=== PATIENT | male | born 1940 | race Caucasian/White ===

== ENCOUNTER 2017-01-01 16:37 | Emergency (ER) | payer OTHER ==
[2017-01-01 17:35] LABS: Basophils # (A) 0.1 k/uL (0-0.2); Basophils % (A) 1 %; CH 30.9; CHCM 34.6; Eosinophils # (A) 0.3 k/uL (0-0.7); Eosinophils % (A) 5 %; HCT 41.9 % (39.0-53.0); HDW 3.02; HGB 14.3 gm/dL (13.0-17.5); Luc # (Auto) 0.16; Luc % (Auto) 2; Lymphocytes # (A) 1.8 k/uL (1.0-4.8); Lymphocytes % (A) 25 %; MCH 30.8 pg (25.0-35.0); MCHC 34.2 g/dL (31.0-37.0); Mean Platelet Volume 7.1; Monocytes # (A) 0.4 k/uL (0-1.0); Monocytes % (A) 6 %; Neutrophils # (A) 4.5 k/uL (1.3-7.7); Neutrophils % (A) 62 %; RBC 4.66 m/uL (4.30-5.90); RDW 14.4 % (11.5-15.5); WBC 7.2 k/uL (3.8-10.6); WBC (Perox) 7.15
[2017-01-01 17:40] LABS: ALT 43 U/L (21-72); AST 35 U/L (17-59); Acetaminophen <10.0 ug/mL; Alkaline Phosphatase 58 U/L (38-126); Anion Gap 15 mmol/L; Blood Urea Nitrogen 20 mg/dL (9-20); Calcium 9.8 mg/dL (8.4-10.2); Carbon Dioxide 20 mmol/L (22-30); Chloride 109 mmol/L (98-107); Glucose 100 mg/dL (74-99); Non-African American GFR(MDRD) >60 (>60 ml/min/1.73 sqM); Potassium 4.5 mmol/L (3.5-5.1); Salicylate <1.0 mg/dL; Sodium 144 mmol/L (137-145); Total Bilirubin 0.5 mg/dL (0.2-1.3); Total Protein 7.2 g/dL (6.3-8.2)
[2017-01-01 20:39] VITALS: RESP 16
--- NOTE | 2017-01-01 21:06 | ED ---
Psych HPI - General Chief Complaint: Psychiatric Symptoms Stated Complaint: Mental Health Time Seen by Provider: 01/01/17 16:52 Source: patient Mode of arrival: EMS - History of Present Illness Initial Comments: This 76-year-old white male presents that he states that he has been feeling strange recently. Initially started approximately 2 months ago. He states that he felt somewhat indecisive and that he was hearing some voices. He seemed to be arguing with them self and these voices at times are telling him to hurt himself. He states that they also told him that he is worthless and this caused him a degree of depression. He denies any actual suicidal ideations. He denies any drug or alcohol use. He relates that he is diagnosed with schizophrenia at age 21 and he has had occasional similar flares but none for the last 10 years. He has not been in any psychiatric medications for the last 10 years. He seems to have quite good insight into his disease process. He denies any other complaints or modifying factors. - Related Data Home Medications Medication Instructions Recorded Confirmed Aspirin EC [Ecotrin Low Dose] 81 mg PO DAILY 01/01/17 01/01/17 Atorvastatin [Lipitor] 80 mg PO HS 01/01/17 01/01/17 Folic Acid 1 mg PO DAILY 01/01/17 01/01/17 Metoprolol Tartrate [Lopressor] 25 mg PO BID 01/01/17 01/01/17 metFORMIN HCL 1,000 mg PO BID 01/01/17 01/01/17 Allergies Allergy/AdvReac Type Severity Reaction Status Date / Time No Known Allergies Allergy Verified 01/01/17 17:34 Review of Systems ROS Statement: Those systems with pertinent positive or pertinent negative responses have been documented in the HPI. ROS Other: All systems not noted in ROS Statement are negative. Past Medical History Past Medical History: Diabetes Mellitus, Osteoarthritis (OA) History of Any Multi-Drug Resistant Organisms: None Reported Past Surgical History: Heart Catheterization With Stent Past Psychological History: Anxiety, Depression, Schizophrenia Smoking Status: Current every day smoker Past Alcohol Use History: None Reported Past Drug Use History: None Reported General Exam - General Exam Comments Initial Comments: GENERAL: The patient is well nourished and well hydrated. VITAL SIGNS: Heart rate, blood pressure, respiratory rate reviewed as recorded in nurse's notes. EYES: Pupils are round and reactive. Extraocular movements are intact. No conjunctival / lid redness or swelling. ENT: No external evidence of injury, swelling, or ecchymosis. Airway is patent. Throat is clear. NECK: Nontender. No swelling or evidence of injury. No subcutaneous emphysema. Trachea is midline. No thyroid mass. HEART: Regular rate and rhythm. Good peripheral pulses. LUNGS/CHEST: Breath sounds clear and equal bilaterally. No rales, rhonchi, or wheezes. No ecchymosis, subcutaneous emphysema, or tenderness. ABDOMEN: Abdomen soft without tenderness. No palpable masses or organomegaly. No peritoneal signs. No abdominal wall swelling or ecchymosis. EXTREMITIES: No extremity tenderness. Normal muscle tone and function. No thoracolumbar tenderness. NEUROLOGIC: Sensation is grossly intact. Cranial nerve exam reveals face is symmetrical, tongue is midline, speech is clear. SKIN: No abrasions or ecchymosis is noted. No induration or masses noted. PSYCHIATRIC: Alert and oriented. Appropriate behavior and judgment. No overt anxiety depression or psychosis identified. Limitations: no limitations Course Vital Signs 01/01/17 01/01/17 01/01/17 16:39 19:16 20:00 Temperature 97.1 F L Pulse Rate 67 Respiratory 16 18 16 Rate Blood Pressure 143/77 O2 Sat by Pulse 94 L Oximetry Medical Decision Making - Medical Decision Making The patient was seen and examined. All diagnostics were reviewed. The laboratory did not show any acute significant abnormalities. A consult was placed for psychiatric nurse to evaluate the patient. They feel as though he is stable for discharge. He does not have any suicidal ideations. The son is present and is agreeable to take him to the [facility] for further psychiatric evaluation and treatment tomorrow. The family is quite agreeable to this plan and patient is subsequently discharged. Return parameters are discussed. - Lab Data Result diagrams: 01/01/17 16:41 01/01/17 16:41 Lab Results 01/01/17 01/01/17 01/01/17 Range/Units 16:41 16:41 16:41 WBC 7.2 (3.8-10.6) k/uL RBC 4.66 (4.30-5.90) m/uL Hgb 14.3 (13.0-17.5) gm/dL Hct 41.9 (39.0-53.0) % MCV 90.0 (80.0-100.0) fL MCH 30.8 (25.0-35.0) pg MCHC 34.2 (31.0-37.0) g/dL RDW 14.4 (11.5-15.5) % Plt Count 234 (150-450) k/uL Neutrophils % 62 % Lymphocytes % 25 % Monocytes % 6 % Eosinophils % 5 % Basophils % 1 % Neutrophils # 4.5 (1.3-7.7) k/uL Lymphocytes # 1.8 (1.0-4.8) k/uL Monocytes # 0.4 (0-1.0) k/uL Eosinophils # 0.3 (0-0.7) k/uL Basophils # 0.1 (0-0.2) k/uL Sodium 144 (137-145) mmol/L Potassium 4.5 (3.5-5.1) mmol/L Chloride 109 H (98-107) mmol/L Carbon Dioxide 20 L (22-30) mmol/L Anion Gap 15 mmol/L BUN 20 (9-20) mg/dL Creatinine 0.93 (0.66-1.25) mg/dL Est GFR (MDRD) Af Amer >60 (>60 ml/min/1.73 sqM) Est GFR (MDRD) Non-Af >60 (>60 ml/min/1.73 sqM) Glucose 100 H (74-99) mg/dL Calcium 9.8 (8.4-10.2) mg/dL Total Bilirubin 0.5 (0.2-1.3) mg/dL AST 35 (17-59) U/L ALT 43 (21-72) U/L Alkaline Phosphatase 58 (38-126) U/L Ammonia 11 (<30) umol/L Total Protein 7.2 (6.3-8.2) g/dL Albumin 4.5 (3.5-5.0) g/dL Salicylates <1.0 mg/dL Acetaminophen <10.0 ug/mL Disposition Clinical Impression: Auditory hallucination, Depression Disposition: HOME SELF-CARE Condition: Good Instructions: Hallucinations (ED), Depression (ED) Referrals: Vinod Ames DO [Primary Care Provider] - 1-2 days Time of Disposition: 21:06
[2017-01-01 21:34] VITALS: BP 138/82; PULSE 72; TEMP 97.6
== END 2017-01-01 21:25 | disposition home or self-care (01) ==
LOC: EC 16:37
DX: F32.9 Major depressive disorder, single episode, unspecified (principal); F41.9 Anxiety disorder, unspecified; F20.9 Schizophrenia, unspecified; E11.9 Type 2 diabetes mellitus without complications; M19.90 Unspecified osteoarthritis, unspecified site; F17.200 Nicotine dependence, unspecified, uncomplicated; Z79.82 Long term (current) use of aspirin; Z79.84 Long term (current) use of oral hypoglycemic drugs; Z79.899 Other long term (current) drug therapy
CPT/HCPCS: 36415; 80053; 82075; 82140; 83520; 85025; 99284

== ENCOUNTER 2018-03-04 08:12 | Day surgery (SDC) | payer MEDICARE, OTHER ==
[2018-02-28 10:03] VITALS: BMI 27.5
[~2018-03-04 08:12] MED LIST: LACTATED RINGERS 1,000 ML IV SCH; LIDOCAINE 1% 20 ML VIAL (10MG/ML) FOR IV START INTRADERMA PRN
[2018-03-04 08:57] VITALS: RESP 16; TEMP 97.1
[2018-03-04 09:00] LABS: Glucose,Whole Blood 212 mg/dL (75-99)
[2018-03-04] MEDS ORDERED: LIDOCAINE 1% INJ 10MG/ML (20 ML MDV) ONE (09:21)
[2018-03-04] MEDS ORDERED: PROPOFOL 10 MG/ML 20 ML VIAL IV ONE (09:21)
[2018-03-04 09:53] VITALS: BP 121/60; PULSE 60
--- NOTE | 2018-03-04 09:58 | P.PCN ---
Date of Procedure: 03/04/18 Procedure(s) Performed: Procedure: 1. Esophagogastroduodenoscopy and biopsy. 2. Colonoscopy. Preoperative diagnosis: History of GI bleeding. Postoperative diagnosis: 1. Small sliding hiatal hernia with no obvious esophagitis or complicated reflux disease. 2. Mild gastritis and duodenitis. 3. Antral biopsies obtained. 4. Diverticulosis with no evidence of acute diverticulitis, strictures, polyps or cancer. 5. No evidence of bleeding noted during this exam. Preparation: HalfLytely prep. Sedation: Was provided by anesthesia. Brief clinical history: The patient is a 77-year-old male who is scheduled for this evaluation because of history of GI bleeding earlier this year. He has no abdominal complaints, overt bleeding or anemia at this time. Procedure: With the patient on his left lateral decubitus position and after informed consent and adequate sedation, I passed the Olympus-GIF 160 video upper endoscope through the cricopharyngeus down the esophagus. GE junction was around 41-42 cm from the incisors and there was a small sliding hiatal hernia but no obvious esophagitis or complicated reflux disease. The endoscope was then passed into the stomach which was insufflated with air and inspected in detail including the retroflex view in the cardia. There was some mottling and erythema in the antrum but no ulcers or erosions. Pyloric channel did not show any ulcers. Duodenal bulb showed mild erythema and minimal friability but no ulcers or erosions. Post bulbar area and descending duodenum appeared within normal limits. There were no obvious ulcers or bleeding. Biopsies obtained from the antrum then the endoscope was withdrawn and I proceeded with the colonoscopy. Perianal area did not show any fissures or fistulas. There were no masses felt on digital rectal examination. The Olympus CFQ 160L video colonoscope was then inserted in the rectum in the usual fashion and advanced to the cecum. There were multiple diverticular orifices seen scattered along the length of the bowel both on the left and on the right side with no evidence of acute diverticulitis or strictures. The mucosa appeared healthy. No polyps or tumors were seen or any obvious angiodysplasia or active bleeding. I retroflexed the endoscope in the rectum before the endoscope was withdrawn. The patient tolerated the procedure well. Plan: The patient was reassured. Will await biopsy results. Discussed dietary measures. He will follow up with you as planned. Further plans based on his course.
== END 2018-03-04 10:20 | disposition home or self-care (01) ==
LOC: ORWHC2ENDO 08:12
DX: K29.50 Unspecified chronic gastritis without bleeding (principal); K44.9 Diaphragmatic hernia without obstruction or gangrene; K29.80 Duodenitis without bleeding; K57.30 Diverticulosis of large intestine without perforation or abscess without bleeding; Z87.19 Personal history of other diseases of the digestive system; I10 Essential (primary) hypertension; E78.5 Hyperlipidemia, unspecified; E11.9 Type 2 diabetes mellitus without complications; M19.90 Unspecified osteoarthritis, unspecified site; R25.1 Tremor, unspecified; I25.10 Atherosclerotic heart disease of native coronary artery without angina pectoris; Z72.0 Tobacco use; Z95.5 Presence of coronary angioplasty implant and graft; Z79.84 Long term (current) use of oral hypoglycemic drugs; Z79.899 Other long term (current) drug therapy
CPT/HCPCS: 88305; 45378; 43239; J2001; J2704

== ENCOUNTER 2021-05-05 10:22 | Emergency (ER) | payer OTHER, MEDICARE ==
[2021-05-05 10:25] VITALS: RESP 16; TEMP 97.5
[2021-05-05] MEDS ORDERED: LIDOCAINE 5% PATCH TOPICAL STA (10:55)
--- NOTE | 2021-05-05 11:14 | ED ---
Back Pain HPI <Joaquin Christianson - Last Filed: 05/05/21 12:22> - General Source: patient Limitations: no limitations <Lior Keita - Last Filed: 05/05/21 12:36> - General Chief Complaint: Back Pain/Injury Stated Complaint: Back Pain Time Seen by Provider: 05/05/21 10:26 - History of Present Illness Initial Comments: 81-year-old male presents to emergency Department with a chief complaint of back pain. Patient reports symptoms are ongoing since February and does not seem to be improving. The pain is located in the lower lumbar region and radiating along the posterior aspect her right lower extremity to her foot. Patient reports the pain is exacerbated with flexion of the right hip. He does report some obstructive urinary symptoms such as dribbling and incomplete emptying but states that has been ongoing for the past several years. However, there is no urinary or bowel incontinence. He does report diarrhea, intermittently over the last year. Denies any saddle anesthesia. He does report some paresthesias along the right lower extremity. Denies any direct trauma to her back. Denies abdominal pain, chest pain, shortness breath, fevers or chills. (Lior Keita) - Related Data Home Medications Medication Instructions Recorded Confirmed Atorvastatin [Lipitor] 40 mg PO HS 01/01/17 05/29/18 Folic Acid 1 mg PO HS 01/01/17 05/29/18 metFORMIN HCL 1,000 mg PO BID 01/01/17 05/29/18 Magnesium Oxide [Mag-Ox] 250 mg PO HS 02/28/18 05/29/18 risperiDONE [RisperDAL] 0.5 mg PO HS 02/28/18 05/29/18 Aspirin [Adult Low Dose Aspirin EC] 81 mg PO DAILY 05/29/18 Cholecalciferol [Vitamin D3] 400 unit PO QAM 05/29/18 Propranolol HCl 20 mg PO BID 05/29/18 Allergies Allergy/AdvReac Type Severity Reaction Status Date / Time No Known Allergies Allergy Verified 05/29/18 12:01 Review of Systems ROS Other: All systems not noted in ROS Statement are negative. <Joaquin Christianson - Last Filed: 05/05/21 12:22> ROS Other: All systems not noted in ROS Statement are negative. <Lior Keita - Last Filed: 05/05/21 12:36> ROS Statement: Those systems with pertinent positive or pertinent negative responses have been documented in the HPI. Past Medical History Past Medical History: Coronary Artery Disease (CAD), Diabetes Mellitus, GI Bleed, Hyperlipidemia, Osteoarthritis (OA) Additional Past Medical History / Comment(s): ESSENTIAL TREMORS, GI bleed 10/2017, diverticulitis, gallstones, some loss of use of rt arm, herniated disk, spinal stenosis History of Any Multi-Drug Resistant Organisms: None Reported Past Surgical History: Cholecystectomy Additional Past Surgical History / Comment(s): 3 cardiac stents, surgery on rt arm x 3 -fx as child, left eyelid surgery Past Anesthesia/Blood Transfusion Reactions: No Reported Reaction Date of Last Stent Placement:: 1999 Past Psychological History: Anxiety, Depression, Schizophrenia Smoking Status: Current every day smoker Past Alcohol Use History: None Reported Past Drug Use History: None Reported - Past Family History Mother Family Medical History: No Reported History <Lior Keita - Last Filed: 05/05/21 12:36> General Exam Limitations: no limitations General appearance: alert, in no apparent distress Head exam: Present: atraumatic, normocephalic, normal inspection Eye exam: Present: normal appearance, PERRL, EOMI Pupils: Present: normal accommodation ENT exam: Present: normal exam, normal oropharynx, mucous membranes moist Neck exam: Present: normal inspection, full ROM. Absent: tenderness, lymphadenopathy Respiratory exam: Present: normal lung sounds bilaterally. Absent: respiratory distress, rales Cardiovascular Exam: Present: regular rate, normal rhythm, normal heart sounds. Absent: systolic murmur GI/Abdominal exam: Present: soft. Absent: distended, tenderness, guarding, rebound Rectal exam: Present: normal inspection, normal rectal tone. Absent: decreased rectal tone Extremities exam: Present: normal inspection, full ROM Back exam: Present: normal inspection, full ROM, tenderness, paraspinal tenderness (lumar, right ), other (Positive leg raise test, right.). Absent: CVA tenderness (R), CVA tenderness (L), muscle spasm, vertebral tenderness Neurological exam: Present: alert, oriented X3 Psychiatric exam: Present: normal affect, normal mood Skin exam: Present: warm, dry, intact, normal color <Lior Keita Last Filed: 05/05/21 12:36> Course <Joaquin Christianson - Last Filed: 05/05/21 12:22> Vital Signs 05/05/21 10:22 Temperature 97.5 F L Pulse Rate 81 Respiratory 16 Rate Blood Pressure 132/78 O2 Sat by Pulse 100 Oximetry - Reevaluation(s) Reevaluation #1: 05/05/21 12:22 Supervision: I did personally evaluate this case patient does present with complaints of back pain some dribbling of urine he was noted have some urinary retention he does have evidence of BPH on examination. CAT scan shows evidence of degenerative changes and some canal narrowing patient noted no neuro deficits. He will be discharged and sent home with follow-up with spine surgery (Joaquin Christianson) Medical Decision Making <Lior Keita - Last Filed: 05/05/21 12:36> - Medical Decision Making 81-year-old male presents to emergency department with a chief complaint of back pain. On physical examination, patient is well-appearing. Vital signs within normal limits. I read the report from the [facility] which had concerns for possible cauda equina. On physical examination here, the patient has full sensation in the groin. He denied any groin or saddle anesthesia. Normal rectal tone. Bladder scan revealed 200 mL urine, likely secondary to enlarged prostate. Patient has been expressing obstructive urinary symptoms for the last several years. CT of the lumbar spine reveals moderate degenerative disc disease. His there is also moderate to severe spinal stenosis in the lumbar spine. I have low concern for cauda equina at this time. I did offer analgesia to the patient, he declined. He did accept the Lidoderm patch which did provide some relief. Patient reports she would like to follow-up an outpatient basis with collective bargaining specialist. I did give him recommendations. Case discussed with Dr. Christianson. (Lior Keita) Disposition <Joaquin Christianson - Last Filed: 05/05/21 12:22> Is patient prescribed a controlled substance at d/c from ED?: No Time of Disposition: 12:27 <Lior Keita - Last Filed: 05/05/21 12:36> Clinical Impression: Mechanical back pain, Strain of lumbar region Disposition: HOME SELF-CARE Condition: Stable Instructions (If sedation given, give patient instructions): Acute Low Back Pain (ED) Additional Instructions: Follow-up with collective bargaining specialist. Return to emergency department if sympto ms worsen. Referrals: [facility],Clinic [Primary Care Provider] - 1-2 days Jonathon Brown DO [Doctor of Osteopathic Medicine] - 1-2 days
--- NOTE | 2021-05-05 11:43 | CT ---
EXAMINATION TYPE: CT lumbar spine wo con DATE OF EXAM: 05/05/2021 COMPARISON: None HISTORY: 81-year-old male Low back pain, no known injury TECHNIQUE: Contiguous axial scanning of the lumbar spine without IV contrast. Coronal and sagittal re constructions performed. CT DLP: 1653.6 mGycm Automated exposure control for dose reduction was used. FINDINGS: Sigmoid diverticulosis. Cortical hypodensities within the right kidney measuring 4.5 and 2.3 cm are i ndeterminate, probable cysts in the confirmed with nonemergent follow-up renal ultrasound. Nonobstructive 5 mm left renal calculus. Mild degenerative change at the bilateral SI joints. Hypertrophic facet arthropathy throughout the lumbar spine. Superior endplate deformity T12 has a chronic appearance given the lack of any fracture lucency or alexander rrounding soft tissue swelling. Moderate disc/endplate degenerative change mid to lower lumbar spine with narrowed discs, vacuum phen omenon, and bulging discs. Degenerative grade 1 anterolisthesis L2-L3. At L2/L3, hypertrophic facet arthropathy with grade 1 anterolisthesis and posterior disc bulge. There is a moderate to severe focal spinal canal stenosis. Mild bilateral neuroforaminal stenosis. At L3-L4, disc osteophyte complex with facet arthropathy. Moderate to severe focal spinal canal steno sis. [id number] right and moderate left neural foraminal stenosis. At L4-L5, disc bulge with ligamentum flavum thickening and facet arthropathy. Probable moderate spina l canal stenosis here with moderate left and mild right neuroforaminal stenosis. At L5-S1, hypertrophic facet arthropathy with moderate left neuroforaminal stenosis. Left lateral di sc disc osteophyte complex may contact the extraforaminal left L5 nerve root here. Slight degenerative levoconvex curvature of the lumbar spine. IMPRESSION: 1. Moderate disc/endplate degenerative change mid to lower lumbar spine. Hypertrophic facet arthropat hy throughout with some ligamentum flavum thickening and a degenerative grade 1 anterolisthesis at L2 -L3. 2. Moderate to severe focal spinal canal stenosis at both L2-L3 and L3-L4, probably moderate at L4-L5 . 3. Variable mild to moderate neural foraminal stenoses as outlined above. At L5-S1, a left lateral di sc osteophyte complex may contact the extraforaminal left L5 nerve root. 4. A couple hypodense lesions in the right kidney measuring 4.5 and 2.3 cm are indeterminate but prob ably represent cysts. This can be confirmed with an outpatient renal ultrasound.
[2021-05-05 12:32] VITALS: BP 120/66; PULSE 85
== END 2021-05-05 12:32 | disposition home or self-care (01) ==
LOC: EC 10:22
DX: S39.012A Strain of muscle, fascia and tendon of lower back, initial encounter (principal); E11.9 Type 2 diabetes mellitus without complications; I25.10 Atherosclerotic heart disease of native coronary artery without angina pectoris; E78.5 Hyperlipidemia, unspecified; M19.90 Unspecified osteoarthritis, unspecified site; F20.9 Schizophrenia, unspecified; F32.9 Major depressive disorder, single episode, unspecified; F41.9 Anxiety disorder, unspecified; F17.200 Nicotine dependence, unspecified, uncomplicated; Z79.82 Long term (current) use of aspirin; Z79.84 Long term (current) use of oral hypoglycemic drugs; Z79.899 Other long term (current) drug therapy; X58.XXXA Exposure to other specified factors, initial encounter
CPT/HCPCS: 72131; 99283

== ENCOUNTER → 2021-06-21 | Outpatient (CLI) | payer OTHER ==
--- NOTE | 2021-06-21 11:34 | MR ---
EXAMINATION TYPE: MR lumbar spine wo con DATE OF EXAM: 06/21/2021 COMPARISON: CT scan 05/05/2021 HISTORY: Low back pain TECHNIQUE: T1 and T2 axial and sagittal images of the lumbar spine are submitted. FINDINGS: There is no abnormal signal seen within the visualized spinal cord or paraspinal soft tissu es. There is a simple appearing right renal cyst. Aorta of normal caliber. A slight scoliotic curvatu re of the spine. At T12-L1 there is no disc herniation or canal stenosis. There is a chronic appearing mild superior e ndplate compression fracture of T12 At L1-2 there is degenerative disc disease and advanced facet arthropathy greater on the right. There is circumferential disc bulging. Mild bilateral foraminal encroachment. No Canal stenosis. At L2-3 there is a grade 1 anterolisthesis with advanced facet arthropathy and ligamentum flavum hype rtrophy. Severe central stenosis with broad-based disc fusion moderate bilateral foraminal encroachme nt. At L3-4 there is severe degenerative disc disease with broad-based disc protrusion, advanced facet ar thropathy and ligamentum flavum hypertrophy. Severe canal stenosis and moderate to severe bilateral f oraminal encroachment. Discogenic marrow changes. At L4-5 there is degenerative disc disease with advanced facet arthropathy and ligamentum flavum hype rtrophy. Broad-based disc protrusion with severe canal stenosis and bilateral foraminal encroachment. At L5-S1 there is degenerative disc disease with facet arthropathy. Lateral disc bulging to the left noted with mild right foraminal encroachment and moderate left foraminal encroachment. Anterior hyper trophic spurring discogenic marrow changes. IMPRESSION: 1. Multilevel moderate to severe degenerative disc disease and facet arthropathy most marked at L3-L4 . 2. Multilevel moderate to severe canal stenosis and foraminal encroachment as discussed above. 3. Mild superior endplate chronic fracture T12
== END | disposition home or self-care (01) ==
LOC: RADMRIMAIN 07:39
DX: M48.061 Spinal stenosis, lumbar region without neurogenic claudication (principal); M51.36 Other intervertebral disc degeneration, lumbar region
CPT/HCPCS: 72148

== ENCOUNTER 2022-04-04 07:48 | Inpatient (IN) | payer OTHER, MEDICARE ==
[2022-04-04] MEDS ORDERED: HYDROmorphone 0.5 MG/0.5 ML SYRINGE IVP STA (08:06)
--- NOTE | 2022-04-04 08:10 | ED ---
General Adult HPI - General Chief complaint: Back Pain/Injury Stated complaint: back pain Time Seen by Provider: 04/04/22 07:50 Source: patient, EMS, RN notes reviewed, old records reviewed Mode of arrival: EMS Limitations: no limitations - History of Present Illness Initial comments: 82-year-old male presenting for evaluation of low back pain. Patient has chronic back pain, takes oral medication and uses lidocaine patches. He states that yesterday he was doing quite good, he was ambulatory and had stable chronic back pain. Throughout the night his pain worsened. There is no specific injury or trauma. No loss of bowel or bladder function. He does report numbness to his feet which she states is chronic in nature. He was unable to ambulate and was brought in by paramedics. Given morphine by paramedics during transport. No fever. No chest pain or abdominal pain. - Related Data Home Medications Medication Instructions Recorded Confirmed Atorvastatin [Lipitor] 40 mg PO HS 01/01/17 04/04/22 Folic Acid 1 mg PO DAILY 01/01/17 04/04/22 Magnesium Oxide [Mag-Ox] 250 mg PO DAILY 02/28/18 04/04/22 Aspirin [Adult Low Dose Aspirin EC] 81 mg PO DAILY 05/29/18 04/04/22 Cholecalciferol [Vitamin D3] 400 unit PO DAILY 05/29/18 04/04/22 Insulin Glargine,Hum.rec.anlog 20 unit SQ DAILY 04/04/22 04/04/22 [Lantus Solostar Pen] Lidocaine 5% Patch [Lidoderm] 1 patch TOPICAL DAILY 04/04/22 04/04/22 Meloxicam [Mobic] 7.5 mg PO BID 04/04/22 04/04/22 Multivitamins, Thera [Multivitamin 1 tab PO DAILY 04/04/22 04/04/22 (formulary)] Propranolol [Inderal] 40 mg PO BID 04/04/22 04/04/22 methocarbamoL [Robaxin] 500 mg PO BID 04/04/22 04/04/22 Allergies Allergy/AdvReac Type Severity Reaction Status Date / Time No Known Allergies Allergy Verified 04/04/22 09:12 Review of Systems ROS Statement: Those systems with pertinent positive or pertinent negative responses have been documented in the HPI. ROS Other: All systems not noted in ROS Statement are negative. Past Medical History Past Medical History: Coronary Artery Disease (CAD), Diabetes Mellitus, GI Bleed, Hyperlipidemia, Osteoarthritis (OA) Additional Past Medical History / Comment(s): ESSENTIAL TREMORS, GI bleed 10/2017, diverticulitis, gallstones, some loss of use of rt arm, herniated disk, spinal stenosis History of Any Multi-Drug Resistant Organisms: None Reported Past Surgical History: Cholecystectomy Additional Past Surgical History / Comment(s): 3 cardiac stents, surgery on rt arm x 3 -fx as child, left eyelid surgery Past Anesthesia/Blood Transfusion Reactions: No Reported Reaction Date of Last Stent Placement:: 1999 Past Psychological History: Anxiety, Depression, Schizophrenia Smoking Status: Current every day smoker Past Alcohol Use History: None Reported Past Drug Use History: None Reported - Past Family History Mother Family Medical History: No Reported History General Exam Limitations: no limitations General appearance: alert, in no apparent distress Head exam: Present: atraumatic, normocephalic Eye exam: Present: normal appearance, PERRL ENT exam: Present: normal exam Neck exam: Present: normal inspection. Absent: tenderness, meningismus Respiratory exam: Present: normal lung sounds bilaterally. Absent: respiratory distress, wheezes Cardiovascular Exam: Present: regular rate, normal rhythm GI/Abdominal exam: Present: soft. Absent: distended, tenderness, guarding, rebound Extremities exam: Present: normal capillary refill, other (Bilateral posterior tibial pulses 2+). Absent: pedal edema Back exam: Absent: full ROM (Exam limited by severe pain) Neurological exam: Present: alert, oriented X3, CN II-XII intact Psychiatric exam: Present: normal affect, normal mood Skin exam: Present: warm, dry, intact. Absent: cyanosis, diaphoretic Course Vital Signs 04/04/22 07:52 Temperature 97.5 F L Pulse Rate 61 Respiratory 17 Rate Blood Pressure 118/93 O2 Sat by Pulse 96 Oximetry Medical Decision Making - Medical Decision Making 82-year-old male with acute on chronic low back pain, bilateral lower extremity numbness. Patient's exam is limited by pain. He does have normal sensation to palpation throughout the lower extremities, there is no saddle anesthesia. His been no bowel or bladder incontinence. There is no trauma. CT of the lumbar spine was performed which showed severe degenerative changes and spinal stenosis. The patient lives alone and is unable to ambulate secondary to pain. He would benefit from pain control, anti-inflammatories, and orthopedic evaluation. He'll be admitted for further evaluation treatment. Case discussed with sound physician. - Lab Data Result diagrams: 04/04/22 08:18 04/04/22 08:18 Lab Results 04/04/22 04/04/22 Range/Units 08:18 08:18 WBC 7.6 (3.8-10.6) k/uL RBC 4.32 (4.30-5.90) m/uL Hgb 13.7 (13.0-17.5) gm/dL Hct 39.9 (39.0-53.0) % MCV 92.3 (80.0-100.0) fL MCH 31.8 (25.0-35.0) pg MCHC 34.5 (31.0-37.0) g/dL RDW 14.8 (11.5-15.5) % Plt Count 197 (150-450) k/uL MPV 7.1 Neutrophils % 73 % Lymphocytes % 16 % Monocytes % 6 % Eosinophils % 3 % Basophils % 0 % Neutrophils # 5.6 (1.3-7.7) k/uL Lymphocytes # 1.2 (1.0-4.8) k/uL Monocytes # 0.4 (0-1.0) k/uL Eosinophils # 0.3 (0-0.7) k/uL Basophils # 0.0 (0-0.2) k/uL Sodium 140 (137-145) mmol/L Potassium 4.2 (3.5-5.1) mmol/L Chloride 109 H (98-107) mmol/L Carbon Dioxide 22 (22-30) mmol/L Anion Gap 9 mmol/L BUN 21 H (9-20) mg/dL Creatinine 0.84 (0.66-1.25) mg/dL Est GFR (CKD-EPI)AfAm >90 (>60 ml/min/1.73 sqM) Est GFR (CKD-EPI)NonAf 83 (>60 ml/min/1.73 sqM) Glucose 102 H (74-99) mg/dL Calcium 9.2 (8.4-10.2) mg/dL Total Bilirubin 0.5 (0.2-1.3) mg/dL AST 31 (17-59) U/L ALT 30 (4-49) U/L Alkaline Phosphatase 48 (38-126) U/L Total Protein 6.3 (6.3-8.2) g/dL Albumin 4.1 (3.5-5.0) g/dL Disposition Clinical Impression: Spinal stenosis, Degenerative disc disease, Unable to ambulate Disposition: ADMITTED IP TO THIS HOSP Condition: Stable Is patient prescribed a controlled substance at d/c from ED?: No Referrals: [facility],Clinic [Primary Care Provider] - 1-2 days Time of Disposition: 10:01
[2022-04-04 08:46] LABS: Basophils % (A) 0 %; Eosinophils # (A) 0.3 k/uL (0-0.7); Eosinophils % (A) 3 %; HCT 39.9 % (39.0-53.0); HGB 13.7 gm/dL (13.0-17.5); Lymphocytes # (A) 1.2 k/uL (1.0-4.8); Lymphocytes % (A) 16 %; MCH 31.8 pg (25.0-35.0); MCHC 34.5 g/dL (31.0-37.0); MCV 92.3 fL (80.0-100.0); Mean Platelet Volume 7.1; Monocytes # (A) 0.4 k/uL (0-1.0); Monocytes % (A) 6 %; Neutrophils # (A) 5.6 k/uL (1.3-7.7); Neutrophils % (A) 73 %; Platelet Count 197 k/uL (150-450); RBC 4.32 m/uL (4.30-5.90); RDW 14.8 % (11.5-15.5); WBC 7.6 k/uL (3.8-10.6)
[2022-04-04 08:51] LABS: ALT 30 U/L (4-49); AST 31 U/L (17-59); African American GFR (CKD) >90 (>60 ml/min/1.73 sqM); Albumin 4.1 g/dL (3.5-5.0); Alkaline Phosphatase 48 U/L (38-126); Anion Gap 9 mmol/L; Blood Urea Nitrogen 21 mg/dL (9-20); Calcium 9.2 mg/dL (8.4-10.2); Carbon Dioxide 22 mmol/L (22-30); Chloride 109 mmol/L (98-107); Glucose 102 mg/dL (74-99); Non-African American GFR(CKD) 83 (>60 ml/min/1.73 sqM); Potassium 4.2 mmol/L (3.5-5.1); Sodium 140 mmol/L (137-145); Total Bilirubin 0.5 mg/dL (0.2-1.3); Total Protein 6.3 g/dL (6.3-8.2)
--- NOTE | 2022-04-04 09:09 | CT ---
EXAMINATION TYPE: CT lumbar spine wo con DATE OF EXAM: 04/04/2022 8:53 AM COMPARISON: CT dated 05/05/2021 HISTORY: back pain CT DLP: 1521.6 mGycm Automated exposure control for dose reduction was used. Technique: Unenhanced CT of the lumbar spine was performed. Bone and soft tissue window settings are submitted as well as coronal and sagittal reconstructions. FINDINGS: Grade 1 degenerative anterolisthesis of L2 over L3, appreciated previously. No definite vertebral bod y collapse or acute displaced fracture. Marked degenerative changes at L3-4 and to a lesser extent L4-5 and L5-S1 with opposing endplate oste ophytosis, degenerated discs, vacuum phenomenon and subchondral sclerotic changes. Multilevel facet o steoarthropathy is also noted. L1-L2: Left focal foraminal disc protrusion, associated with slightly prominent posterior epidural fa t, causing mild central spinal canal stenosis without significant neural from stenosis. L2-L3: Grade 1 anterolisthesis associated with mild diffuse posterior disc bulge and focal central di sc protrusion, marrow interlaminar angle, slightly prominent posterior epidural fat and severe bilate ral facet osteoarthropathy, causing severe central spinal canal stenosis and moderate to severe right neuroforaminal stenosis compressing the right L2 nerve root. L3-L4: Markedly degenerated disc with vacuum phenomenon and posterior osteophytosis, associated with narrow interlaminar angle, slightly prominent posterior epidural fat and bilateral facet osteoarthrop athy (more on the left side), causing severe central spinal canal stenosis, moderate right and severe left neural foraminal stenosis, compressing the corresponding L3 nerve roots, more on the left side. L4-L5: Degenerated disc with vacuum phenomenon, diffuse posterior disc bulge and posterior osteophyto sis, associated with reduced AP dimension of the spinal canal, slightly prominent posterior epidural fat and left facet osteoarthropathy, causing severe central spinal canal stenosis and moderate left n eural foraminal stenosis, compressing the left L4 nerve root. L5-S1: Degenerated disc with vacuum phenomenon, associated with diffuse posterior disc bulge, posteri or osteophytosis and bilateral facet osteoarthropathy, causing no significant central spinal canal st enosis and moderate to severe left neural foraminal stenosis, compressing the left L5 nerve root. Right renal cysts without suspicious features. Questionable 2 mm nonobstructing right renal calculus. Scattered arterial atherosclerotic calcifications. No paraspinal lesion. IMPRESSION: Advanced degenerative changes of the lumbar spine with multilevel DDD, central spinal canal stenosis, neural foraminal stenosis and nerve root compression as detailed above. Recommend clinical correlati on and spine surgery consultation. Further MRI assessment can be also considered.
[2022-04-04] MEDS ORDERED: DEXAMETHASONE SOD PHOSPHATE 10 MG/ML 1 ML VIAL IV STA (09:20)
[2022-04-04] MEDS ORDERED: ACETAMINOPHEN TAB 325 MG TAB PO PRN (09:58)
[2022-04-04] MEDS ORDERED: IBUPROFEN 400 MG TAB PO PRN (09:58)
[2022-04-04] MEDS ORDERED: NALOXONE 0.4 MG/ML 1 ML VIAL IV PRN ×2 (09:58→12:57)
[2022-04-04] MEDS: HYDROmorphone 0.5 MG/0.5 ML SYRINGE IVP PRN ×3 (12:00→19:00)
[2022-04-04] MEDS ORDERED: MAG HYDROX/AL HYDROX/SIMETH 30 ML CUP PO PRN (12:57)
[2022-04-04] MEDS ORDERED: LACTULOSE 20 GM/30 ML CUP PO PRN (12:57)
[2022-04-04] MEDS ORDERED: ONDANSETRON 4 MG/2 ML VIAL IVP PRN (12:57)
[2022-04-04] MEDS ORDERED: LOPERAMIDE 2 MG CAP PO PRN (12:57)
--- NOTE | 2022-04-04 13:05 | P.HPIM ---
History of Present Illness H&P Date: 04/04/22 This is an 82-year-old male with past medical history chronic back pain admitted to the hospital with severe back pain has been gone for the last day or so getting worse with inability to move his lower extremities bilaterally due to the pain Denies any chest pain or shortness of breath Review of systems and systems has been reviewed all negative and positive findings as per history of present illness Constitutional: No acute distress, conversant, pleasant Eyes: Anicteric sclerae, moist conjunctiva, no lid-lag PERRLA ENMT: NC/AT Oropharynx clear, no erythema, exudates Neck: Supple, FROM, no masses, or JVD No carotid bruits No thyromegaly Lungs: Clear to auscultation Clear to percussion Normal respiratory effort, no accessory muscle use Cardiovascular: Heart regular in rate and rhythm, No murmurs, gallops, or rubs No peripheral edema Abdominal: Soft Nontender, no guarding, rebound or rigidity Abdomen moving with respiration Normoactive bowel sounds No hepatomegaly, No splenomegaly No palpable mass No abdominal wall hernia noted Skin: Normal temperature, tone, texture, turgor No induration No subcutaneous nodules No rash, lesions No ulcers Extremities: No digital cyanosis No clubbing Pedal pulses intact and symmetrical Radial pulses intact and symmetrical Normal gait and station No calf tenderness Psychiatric:Alert and oriented to person, place and time Appropriate affect Intact judgement Neuro: Generalized lower extremity weakness bilaterally Severe intractable back pain Continue pain control Orthopedics has been consulted Diabetes we'll put the patient on sliding scale insulin Hypertension we'll resume home medications Generalized weakness Past Medical History Past Medical History: Coronary Artery Disease (CAD), Diabetes Mellitus, GI Bleed, Hyperlipidemia, Osteoarthritis (OA) Additional Past Medical History / Comment(s): ESSENTIAL TREMORS, GI bleed 10/2017, diverticulitis, gallstones, some loss of use of rt arm, herniated disk, spinal stenosis History of Any Multi-Drug Resistant Organisms: None Reported Past Surgical History: Cholecystectomy Additional Past Surgical History / Comment(s): 3 cardiac stents, surgery on rt arm x 3 -fx as child, left eyelid surgery Past Anesthesia/Blood Transfusion Reactions: No Reported Reaction Date of Last Stent Placement:: 1999 Past Psychological History: Anxiety, Depression, Schizophrenia Smoking Status: Current every day smoker Past Alcohol Use History: None Reported Past Drug Use History: None Reported - Past Family History Mother Family Medical History: No Reported History Medications and Allergies Home Medications Medication Instructions Recorded Confirmed Type Atorvastatin [Lipitor] 40 mg PO HS 01/01/17 04/04/22 History Folic Acid 1 mg PO DAILY 01/01/17 04/04/22 History Magnesium Oxide [Mag-Ox] 250 mg PO DAILY 02/28/18 04/04/22 History Aspirin [Adult Low Dose Aspirin EC] 81 mg PO DAILY 05/29/18 04/04/22 History Cholecalciferol [Vitamin D3] 400 unit PO DAILY 05/29/18 04/04/22 History Insulin Glargine,Hum.rec.anlog 20 unit SQ DAILY 04/04/22 04/04/22 History [Lantus Solostar Pen] Lidocaine 5% Patch [Lidoderm] 1 patch TOPICAL DAILY 04/04/22 04/04/22 History Meloxicam [Mobic] 7.5 mg PO BID 04/04/22 04/04/22 History Multivitamins, Thera [Multivitamin 1 tab PO DAILY 04/04/22 04/04/22 History (formulary)] Propranolol [Inderal] 40 mg PO BID 04/04/22 04/04/22 History methocarbamoL [Robaxin] 500 mg PO BID 04/04/22 04/04/22 History Allergies Allergy/AdvReac Type Severity Reaction Status Date / Time No Known Allergies Allergy Verified 04/04/22 09:12 Physical Exam Vitals: Vital Signs Temp Pulse Resp BP Pulse Ox 04/04/22 12:01 57 L 18 131/77 96 04/04/22 07:52 97.5 F L 61 17 118/93 96 Intake and Output 04/03/22 04/04/22 04/04/22 22:59 06:59 14:59 Other: Weight 104.326 kg Results CBC & Chem 7: 04/04/22 08:18 04/04/22 08:18 Labs: Abnormal Lab Results - Last 24 Hours (Table) 04/04/22 Range/Units 08:18 Chloride 109 H (98-107) mmol/L BUN 21 H (9-20) mg/dL Glucose 102 H (74-99) mg/dL
[2022-04-04 17:14] LABS: Glucose,Whole Blood 207 mg/dL (75-99)
[2022-04-04] MEDS: INSULIN ASPART (NovoLOG) 100 UNIT/ML VIAL SQ SCH ×4 (17:55→20:58)
[2022-04-04 20:13] LABS: Glucose,Whole Blood 261 mg/dL (75-99)
[2022-04-04] MEDS: MELOXICAM 7.5 MG TAB PO SCH (20:54)
[2022-04-04] MEDS: INSULIN DETEMIR (LEVEMIR) 100 UNIT/ML SYR SQ SCH (20:54)
[2022-04-04] MEDS: ATORVASTATIN 40 MG TAB PO SCH (20:54)
[2022-04-04] MEDS: HYDROcodone/APAP 5-325MG 1 EACH TAB PO PRN (20:54)
[2022-04-04] MEDS: methocarbamoL 500 MG TAB PO SCH (20:55)
[2022-04-04] MEDS: PROPRANOLOL 40 MG TAB PO SCH (20:55)
[2022-04-05] MEDS: HYDROmorphone 0.5 MG/0.5 ML SYRINGE IVP PRN ×2 (00:02→18:15)
[2022-04-05 06:43] LABS: Basophils % (A) 0 %; Eosinophils # (A) 0.1 k/uL (0-0.7); Eosinophils % (A) 1 %; HGB 13.2 gm/dL (13.0-17.5); Lymphocytes # (A) 1.2 k/uL (1.0-4.8); Lymphocytes % (A) 12 %; MCH 29.9 pg (25.0-35.0); MCHC 31.5 g/dL (31.0-37.0); MCV 94.9 fL (80.0-100.0); Mean Platelet Volume 7.6; Monocytes # (A) 0.5 k/uL (0-1.0); Monocytes % (A) 5 %; Neutrophils # (A) 8.6 k/uL (1.3-7.7); Neutrophils % (A) 81 %; Platelet Count 206 k/uL (150-450); RBC 4.43 m/uL (4.30-5.90); RDW 14.1 % (11.5-15.5); WBC 10.6 k/uL (3.8-10.6)
[2022-04-05 07:10] LABS: ALT 38 U/L (4-49); AST 31 U/L (17-59); African American GFR (CKD) 90 (>60 ml/min/1.73 sqM); Albumin 4.1 g/dL (3.5-5.0); Albumin/Globulin Ratio 1.9; Alkaline Phosphatase 58 U/L (38-126); Anion Gap 10 mmol/L; Blood Urea Nitrogen 26 mg/dL (9-20); Calcium 9.1 mg/dL (8.4-10.2); Carbon Dioxide 20 mmol/L (22-30); Chloride 107 mmol/L (98-107); Globulin 2.2 g/dL; Glucose 145 mg/dL (74-99); Non-African American GFR(CKD) 78 (>60 ml/min/1.73 sqM); Potassium 4.4 mmol/L (3.5-5.1); Sodium 137 mmol/L (137-145); Total Bilirubin 0.5 mg/dL (0.2-1.3); Total Protein 6.3 g/dL (6.3-8.2)
[2022-04-05 07:13] LABS: Glucose,Whole Blood 149 mg/dL (75-99)
[2022-04-05] MEDS: INSULIN ASPART (NovoLOG) 100 UNIT/ML VIAL SQ SCH ×7 (08:12→20:41)
[2022-04-05] MEDS: MELOXICAM 7.5 MG TAB PO SCH ×2 (08:13→20:41)
[2022-04-05] MEDS: FOLIC ACID 1 MG TAB PO SCH (08:13)
[2022-04-05] MEDS: ASPIRIN 81 MG PO SCH (08:13)
[2022-04-05] MEDS: methocarbamoL 500 MG TAB PO SCH ×2 (08:14→20:41)
[2022-04-05] MEDS: PROPRANOLOL 40 MG TAB PO SCH ×2 (08:14→20:41)
[2022-04-05 11:03] LABS: Glucose,Whole Blood 237 mg/dL (75-99)
--- NOTE | 2022-04-05 13:54 | P.PN ---
Subjective Progress Note Date: 04/05/22 Continues to have back pain This is an 82-year-old male with past medical history chronic back p ain admitted to the hospital with severe back pain has been gone for the last day or so getting worse with inability to move his lower extremities bilaterally due to the pain Denies any chest pain or shortness of breath Review of systems and systems has been reviewed all negative and positive findin gs as per history of present illness Constitutional: No acute distress, conversant, pleasant Eyes: Anicteric sclerae, moist conjunctiva, no lid-lag PERRLA ENMT: NC/AT Oropharynx clear, no erythema, exudates Neck: Supple, FROM, no masses, or JVD No carotid bruits No thyromegaly Lungs: Clear to auscultation Clear to percussion Normal respiratory effort, no accessory muscle use Cardiovascular: Heart regular in rate and rhythm, No murmurs, gallops, or rubs No peripheral edema Abdominal: Soft Nontender, no guarding, rebound or rigidity Abdomen moving with respiration Normoactive bowel sounds No hepatomegaly, No splenomegaly No palpable mass No abdominal wall hernia noted Skin: Normal temperature, tone, texture, turgor No induration No subcutaneous nodules No rash, lesions No ulcers Extremities: No digital cyanosis No clubbing Pedal pulses intact and symmetrical Radial pulses intact and symmetrical Normal gait and station No calf tenderness Psychiatric:Alert and oriented to person, place and time Appropriate affect Intact judgement Neuro: Generalized lower extremity weakness bilaterally Severe intractable back pain Continues to need IV Dilaudid Continue pain control Orthopedics has been consulted Diabetes we'll put the patient on sliding scale insulin Hypertension we'll resume home medications Generalized weakness Discharge as per clinical improvement Past Medical History Past Medical History: Coronary Artery Disease (CAD), Diabetes Mellitus, GI Bleed, Hyperlipidemia, Osteoarthritis (OA) Additional Past Medical History / Comment(s): ESSENTIAL TREMORS, GI bleed 10/2017, diverticulitis, gallstones, some loss of use of rt arm, herniated disk, spinal stenosis History of Any Multi-Drug Resistant Organisms: None Reported Past Surgical History: Cholecystectomy Additional Past Surgical History / Comment(s): 3 cardiac stents, surgery on rt arm x 3 -fx as child, left eyelid surgery Past Anesthesia/Blood Transfusion Reactions: No Reported Reaction Date of Last Stent Placement:: 1999 Past Psychological History: Anxiety, Depression, Schizophrenia Smoking Status: Current every day smoker Past Alcohol Use History: None Reported Past Drug Use History: None Reported - Past Family History Mother Family Medical History: No Reported History Medications and Allergies Home Medications Medication Instructions Recorded Confirmed Type Atorvastatin [Lipitor] 40 mg PO HS 01/01/17 04/04/22 History Folic Acid 1 mg PO DAILY 01/01/17 04/04/22 History Magnesium Oxide [Mag-Ox] 250 mg PO DAILY 02/28/18 04/04/22 History Aspirin [Adult Low Dose Aspirin EC] 81 mg PO DAILY 05/29/18 04/04/22 History Cholecalciferol [Vitamin D3] 400 unit PO DAILY 05/29/18 04/04/22 History Insulin Glargine,Hum.rec.anlog 20 unit SQ DAILY 04/04/22 04/04/22 History [Lantus Solostar Pen] Lidocaine 5% Patch [Lidoderm] 1 patch TOPICAL DAILY 04/04/22 04/04/22 History Meloxicam [Mobic] 7.5 mg PO BID 04/04/22 04/04/22 History Multivitamins, Thera [Multivitamin 1 tab PO DAILY 04/04/22 04/04/22 History (formulary)] Propranolol [Inderal] 40 mg PO BID 04/04/22 04/04/22 History methocarbamoL [Robaxin] 500 mg PO BID 04/04/22 04/04/22 History Allergies Allergy/AdvReac Type Severity Reaction Status Date / Time No Known Allergies Allergy Verified 04/04/22 09:12 Physical Exam Vitals: Vital Signs Temp Pulse Resp BP Pulse Ox 04/04/22 12:01 57 L 18 131/77 96 04/04/22 07:52 97.5 F L 61 17 118/93 96 Intake and Output 04/03/22 04/04/22 04/04/22 22:59 06:59 14:59 Other: Weight 104.326 kg Results CBC & Chem 7: 04/04/22 08:18 04/04/22 08:18 Labs: Abnormal Lab Results - Last 24 Hours (Table) 04/04/22 Range/Units 08:18 Chloride 109 H (98-107) mmol/L BUN 21 H (9-20) mg/dL Glucose 102 H (74-99) mg/dL Objective - Vital Signs Vital signs: Vital Signs Temp 97.8 F 04/05/22 11:52 Pulse 54 L 04/05/22 11:52 Resp 13 04/05/22 11:52 BP 155/91 04/05/22 11:52 Pulse Ox 95 04/05/22 11:52 FiO2 Intake & Output 04/04/22 04/05/22 04/05/22 18:59 06:59 18:59 Intake Total 200 Balance 200 Weight 104.326 kg Intake: Oral 200 Other: Voiding Method Urinal # Voids 3 # Bowel Movements 1 - Labs CBC & Chem 7: 04/05/22 05:28 04/05/22 05:28 Labs: Abnormal Lab Results - Last 24 Hours (Table) 04/04/22 04/04/22 04/05/22 Range/Units 17:12 20:10 05:28 Neutrophils # 8.6 H (1.3-7.7) k/uL Carbon Dioxide (22-30) mmol/L BUN (9-20) mg/dL Glucose (74-99) mg/dL POC Glucose (mg/dL) 207 H 261 H (75-99) mg/dL 04/05/22 04/05/22 04/05/22 Range/Units 05:28 07:10 11:00 Neutrophils # (1.3-7.7) k/uL Carbon Dioxide 20 L (22-30) mmol/L BUN 26 H (9-20) mg/dL Glucose 145 H (74-99) mg/dL POC Glucose (mg/dL) 149 H 237 H (75-99) mg/dL
--- NOTE | 2022-04-05 14:07 | P.PAINCN ---
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, and patient used to have to attend low back pain, over the last 2 years and intensity of the pain increased significantly, and mostly in the low back area but over the last few days intensity of the pain increased significantly, and associated with numbness and tingling sensation in the lower extremity bilaterally, and he had weakness in the lower extremity bilaterally but more prominent on the right side, he denies any fever or night sweats, patient admitted to [facility] secondary to intractable back pain and also weakness in the lower extremity, patient already on Mobic 7.5 mg twice a day, [place] 5/325 every 6 hours when necessary and Robaxin 500 twice a day, and Dilaudid at 0.5 mg every 3 hours when necessary and he continued to have severe pain Past Medical History Past Medical History: Coronary Artery Disease (CAD), Diabetes Mellitus, GI Bleed, Hyperlipidemia, Osteoarthritis (OA) Additional Past Medical History / Comment(s): ESSENTIAL TREMORS, GI bleed 10/2017, diverticulitis, gallstones, some loss of use of rt arm, herniated disk, spinal stenosis History of Any Multi-Drug Resistant Organisms: None Reported Past Surgical History: Cholecystectomy Additional Past Surgical History / Comment(s): 3 cardiac stents, surgery on rt arm x 3 -fx as child, left eyelid surgery Past Anesthesia/Blood Transfusion Reactions: No Reported Reaction Date of Last Stent Placement:: 1999 Past Psychological History: Anxiety, Depression, Panic Disorder, Schizophrenia Smoking Status: Current every day smoker Past Alcohol Use History: None Reported Additional Past Alcohol Use History / Comment(s): SMOKES 1/2 PPD, SINCE AGE 20 Past Drug Use History: None Reported - Past Family History Mother Family Medical History: No Reported History Medications and Allergies Home Medications Medication Instructions Recorded Confirmed Type Atorvastatin [Lipitor] 40 mg PO HS 01/01/17 04/04/22 History Folic Acid 1 mg PO DAILY 01/01/17 04/04/22 History Magnesium Oxide [Mag-Ox] 250 mg PO DAILY 02/28/18 04/04/22 History Aspirin [Adult Low Dose Aspirin EC] 81 mg PO DAILY 05/29/18 04/04/22 History Cholecalciferol [Vitamin D3] 400 unit PO DAILY 05/29/18 04/04/22 History Insulin Glargine,Hum.rec.anlog 20 unit SQ DAILY 04/04/22 04/04/22 History [Lantus Solostar Pen] Lidocaine 5% Patch [Lidoderm] 1 patch TOPICAL DAILY 04/04/22 04/04/22 History Meloxicam [Mobic] 7.5 mg PO BID 04/04/22 04/04/22 History Multivitamins, Thera [Multivitamin 1 tab PO DAILY 04/04/22 04/04/22 History (formulary)] Propranolol [Inderal] 40 mg PO BID 04/04/22 04/04/22 History methocarbamoL [Robaxin] 500 mg PO BID 04/04/22 04/04/22 History Allergies Allergy/AdvReac Type Severity Reaction Status Date / Time No Known Allergies Allergy Verified 04/04/22 09:12 Physical Exam Vitals: Vital Signs Temp Pulse Pulse Resp BP BP Pulse Ox 04/05/22 11:52 97.8 F 54 L 13 155/91 95 04/05/22 08:11 62 147/80 96 04/05/22 05:00 97.6 F 58 L 16 163/83 96 04/04/22 20:00 97.7 F 80 16 142/75 94 L 04/04/22 16:52 98.4 F 78 16 163/80 94 L 04/04/22 15:36 72 17 153/92 94 L Intake and Output 04/04/22 04/05/22 04/05/22 22:59 06:59 14:59 Intake Total 200 Balance 200 Intake: Oral 200 Other: Voiding Method Urinal # Voids 3 # Bowel Movements 1 Weight 104.326 kg Physical Examinations : -Constitutiona : Cooperative , not in acute distress . -HEENT : nech : supple , no Lymphadenopathy , normal thyroid size . : eyes : no ptosis , no icterus, no jose tophobia . - neurologic : Cranial nerve II to XII intact , no focal neurological deffecit . -psychatric : alert , oriented X 3 , appropriate affect , intact judgment and insight . -Lymphatic : no Lymphadenopathy . - musculoskeltal : Lumber spine moter stegnth lower extremities ,thigh and legs 2/5 Right side , 3/5 Left side deep tendon reflexes : normal Knee Jerk , normal ankle Jerk lumber facet Loading Test =positive Right , positive Left Range of motion of the lumbar spine Flexion 30 degrees, extension 10 degrees strait leg raising test = positive at 30 degree Fabere test= positive Right , and positive LT . Sever tenderness over the Sacroiliac joint on the Right , and Left sides Flexion and extension of the right hip joint associated with pain Results CBC & Chem 7: 04/05/22 05:28 04/05/22 05:28 Labs: Abnormal Lab Results - Last 24 Hours (Table) 04/04/22 04/04/22 04/05/22 Range/Units 17:12 20:10 05:28 Neutrophils # 8.6 H (1.3-7.7) k/uL Carbon Dioxide (22-30) mmol/L BUN (9-20) mg/dL Glucose (74-99) mg/dL POC Glucose (mg/dL) 207 H 261 H (75-99) mg/dL 04/05/22 04/05/22 04/05/22 Range/Units 05:28 07:10 11:00 Neutrophils # (1.3-7.7) k/uL Carbon Dioxide 20 L (22-30) mmol/L BUN 26 H (9-20) mg/dL Glucose 145 H (74-99) mg/dL POC Glucose (mg/dL) 149 H 237 H (75-99) mg/dL Comments: Computed tomography scan of the lumbar spine= multilevel lumbar degenerative disc disease and multilevel lumbar facet arthropathy and multilevel lumbar spinal stenosis and multilevel lumbar foraminal stenosis. MRI of the lumbar spine done in 2020= advanced lumbar degenerative disc disease and lumbar spinal stenosis and lumbar foraminal stenosis and lumbar facet arthropathy Assessment and Plan Plan: Assessment and plan=1-lumbar radiculopathy. 2-lumbar degenerative disc disease. 3-lumbar spondylosis with lumbar facet arthropathy without myelopathy. 4-right hip arthralgia. Patient had severe intractable pain, and he was admitted to [facility] because of uncontrolled pain, Patient could benefit from lumbar epidural steroid injection at L4-L5 to be done tomorrow morning. Patient could benefit from Neurontin 100 mg daily at bedtime for 3 days then it will be increased after that to twice a day Time with Patient: Greater than 30 PQRS Measure Charge Sheet - Pain Location Back Non-Pharmacological Interventions: Inactivity, Position/Reposition Pharmacological Interventions: PRN Medication, Scheduled Medication PQRS Narrative: Smoking Status Current every day smoker Do You Want the Pneumonia Vaccine Up to Date Vaccine AT THIS TIME? Blood Pressure [Left Arm 155/91 Supine] Blood Pressure 153/92 Pain Intensity 5 Pain Scale Used Non Verbal Pain Indicator Scale Used Numeric (1 - 10) Home Medications: Ambulatory Orders Atorvastatin [Lipitor] 40 mg PO HS 01/01/17 Folic Acid 1 mg PO DAILY 01/01/17 Magnesium Oxide [Mag-Ox] 250 mg PO DAILY 02/28/18 Aspirin [Adult Low Dose Aspirin EC] 81 mg PO DAILY 05/29/18 Cholecalciferol [Vitamin D3] 400 unit PO DAILY 05/29/18 Insulin Glargine,Hum.rec.anlog [Lantus Solostar Pen] 20 unit SQ DAILY 04/04/22 Lidocaine 5% Patch [Lidoderm] 1 patch TOPICAL DAILY 04/04/22 Meloxicam [Mobic] 7.5 mg PO BID 04/04/22 Multivitamins, Thera [Multivitamin (formulary)] 1 tab PO DAILY 04/04/22 Propranolol [Inderal] 40 mg PO BID 04/04/22 methocarbamoL [Robaxin] 500 mg PO BID 04/04/22
[2022-04-05] MEDS: HYDROcodone/APAP 5-325MG 1 EACH TAB PO PRN ×2 (16:23→20:41)
[2022-04-05 17:08] LABS: Glucose,Whole Blood 140 mg/dL (75-99)
--- NOTE | 2022-04-05 18:11 | P.CNOR ---
History of Present Illness - [facility] Consult date: 04/05/22 Requesting physician: Hannah Brown Consult reason: low back pain, other (Difficulty with ambulation due to pain) History of present illness: Patient is a very pleasant 82-year-old male who is seen and examined at the bedside with the family present for further evaluation regards to his lumbar spine. He states he is known have chronic low back pain. He did have an episode last year which required admission and further evaluation in the hospital setting for his back pain. His back pain did have some improvement but he continues to have some chronic low back pain. Most significantly he has been experiencing numbness and tingling of bilateral lower extremities over the past 4 days without injury. He states the numbness and tingling is most significant in his feet and lower extremities below the knees with some improvement over the thighs. He has had difficulty mobilizing due to his low back pain and lower extremity numbness and tingling. He was brought to the emergency department for further evaluation. CT imaging of the lumbar spine was taken at that time he was admitted for further evaluation. He does admit to difficulty with prolonged ambulation. He does not have a specific lower extremity radiculopathy pattern or specific lower extremity weakness. Patient's other medical diagnoses include coronary artery disease, diabetes mellitus, history of GI bleed, and hyperlipidemia. Patient denies any saddle anesthesia. He is urinating without difficulty. He has normal sensation with urination. He has not had a bowel movement since his admission but is not experiencing any abdominal pain. He states he has not eaten much food since his admission. His abdomen is soft nontender. Patient denies having a pacemaker. Past Medical History Past Medical History: Coronary Artery Disease (CAD), Diabetes Mellitus, GI Bleed, Hyperlipidemia, Osteoarthritis (OA) Additional Past Medical History / Comment(s): ESSENTIAL TREMORS, GI bleed 10/2017, diverticulitis, gallstones, some loss of use of rt arm, herniated disk, spinal stenosis History of Any Multi-Drug Resistant Organisms: None Reported Past Surgical History: Cholecystectomy Additional Past Surgical History / Comment(s): 3 cardiac stents, surgery on rt arm x 3 -fx as child, left eyelid surgery Past Anesthesia/Blood Transfusion Reactions: No Reported Reaction Date of Last Stent Placement:: 1999 Past Psychological History: Anxiety, Depression, Panic Disorder, Schizophrenia Smoking Status: Current every day smoker Past Alcohol Use History: None Reported Additional Past Alcohol Use History / Comment(s): SMOKES 1/2 PPD, SINCE AGE 20 Past Drug Use History: None Reported - Past Family History Mother Family Medical History: No Reported History Medications and Allergies Home Medications Medication Instructions Recorded Confirmed Type Atorvastatin [Lipitor] 40 mg PO HS 01/01/17 04/04/22 History Folic Acid 1 mg PO DAILY 01/01/17 04/04/22 History Magnesium Oxide [Mag-Ox] 250 mg PO DAILY 02/28/18 04/04/22 History Aspirin [Adult Low Dose Aspirin EC] 81 mg PO DAILY 05/29/18 04/04/22 History Cholecalciferol [Vitamin D3] 400 unit PO DAILY 05/29/18 04/04/22 History Insulin Glargine,Hum.rec.anlog 20 unit SQ DAILY 04/04/22 04/04/22 History [Lantus Solostar Pen] Lidocaine 5% Patch [Lidoderm] 1 patch TOPICAL DAILY 04/04/22 04/04/22 History Meloxicam [Mobic] 7.5 mg PO BID 04/04/22 04/04/22 History Multivitamins, Thera [Multivitamin 1 tab PO DAILY 04/04/22 04/04/22 History (formulary)] Propranolol [Inderal] 40 mg PO BID 04/04/22 04/04/22 History methocarbamoL [Robaxin] 500 mg PO BID 04/04/22 04/04/22 History Allergies Allergy/AdvReac Type Severity Reaction Status Date / Time No Known Allergies Allergy Verified 04/04/22 09:12 Physical Examination Physical exam: Patient is awake, alert, and oriented 3 Vital signs stable Good chest excursion with deep inspiration and expiration Abdomen soft nontender Examination of lumbar spine reveals skin is intact with no abrasions, lacerations, or bruises; no erythema, purulence or signs of infection Patient has significant difficulty with rolling over in bed Dorsiflexion, plantarflexion, and extensor hallucis longus positive sustained bilaterally Patient has difficulty performing hip flexion of bilateral lower extremities No pain with pelvic rocking No lower extremity hyperreflexia bilaterally Negative Lasegue's test bilaterally No signs or symptoms of DVT; no calf pain Reported decreased sensation with palpation of the bilateral feet and lower extremities below the knees with improvement in sensation over the thighs bilaterally No pain with internal and external rotation of the hips bilaterally Neurovascularly intact Results Pertinent studies: CT of the lumbar spine taken on 04/04/2022: L2-3 spondylolisthesis, facet arthropathy, and disc protrusion resulting in central canal stenosis and bilateral neural foraminal stenosis; L3-4 asymmetric degenerative disc disease, severe degenerative disc disease, endplate change, facet arthropathy, and disc protrusion resulting in central canal stenosis and neural foraminal stenosis; L4-5 large left facet arthropathy with left neural foraminal stenosis and central stenosis - Labs Labs: Abnormal Lab Results - Last 24 Hours (Table) 04/04/22 04/04/22 04/05/22 Range/Units 17:12 20:10 05:28 Neutrophils # 8.6 H (1.3-7.7) k/uL Carbon Dioxide (22-30) mmol/L BUN (9-20) mg/dL Glucose (74-99) mg/dL POC Glucose (mg/dL) 207 H 261 H (75-99) mg/dL 04/05/22 04/05/22 04/05/22 Range/Units 05:28 07:10 11:00 Neutrophils # (1.3-7.7) k/uL Carbon Dioxide 20 L (22-30) mmol/L BUN 26 H (9-20) mg/dL Glucose 145 H (74-99) mg/dL POC Glucose (mg/dL) 149 H 237 H (75-99) mg/dL H & H 04/04/22 04/05/22 Range/Units 08:18 05:28 Hgb 13.7 13.2 (13.0-17.5) gm/dL Hct 39.9 42.0 (39.0-53.0) % Result Diagrams: 04/05/22 05:28 04/05/22 05:28 Assessment and Plan Assessment: Assessment: Chronic low back pain Neurogenic claudication Bilateral lower extremity numbness past 4 days Difficulty ambulation due to pain and numbness L2-3 spondylolisthesis Lumbar facet arthropathy Lumbar stenosis Lumbar degenerative disc disease Coronary artery disease Diabetes mellitus History of GI bleed Hyperlipidemia (1) Lumbar degenerative disc disease Current Visit: Yes Status: Acute Code(s): M51.36 - OTHER INTERVERTEBRAL DISC DEGENERATION, LUMBAR REGION SNOMED Code(s): 40601727 (2) Lumbar facet arthropathy Current Visit: Yes Status: Acute Code(s): M47.816 - SPONDYLOSIS W/O MYELOPATHY OR RADICULOPATHY, LUMBAR REGION SNOMED Code(s): 005529323 (3) Lumbar stenosis with neurogenic claudication Current Visit: Yes Status: Acute Code(s): M48.062 - SPINAL STENOSIS, LUMBAR REGION WITH NEUROGENIC CLAUDICATION SNOMED Code(s): 31201183 (4) Spondylolisthesis, lumbar region Current Visit: Yes Status: Acute Code(s): M43.16 - SPONDYLOLISTHESIS, LUMBAR REGION SNOMED Code(s): 397238137673518 (5) Difficulty in walking Current Visit: Yes Status: Acute Code(s): R26.2 - DIFFICULTY IN WALKING, NOT ELSEWHERE CLASSIFIED SNOMED Code(s): 520201701 (6) Lower extremity numbness Current Visit: Yes Status: Acute Code(s): R20.0 - ANESTHESIA OF SKIN SNOMED Code(s): 429540614 (7) Chronic low back pain Current Visit: Yes Status: Acute Code(s): M54.50 - LOW BACK PAIN, UNSPECIFIED; G89.29 - OTHER CHRONIC PAIN SNOMED Code(s): 318786940 (8) Coronary artery disease Current Visit: Yes Status: Acute Code(s): I25.10 - ATHSCL HEART DISEASE OF [place] CORONARY ARTERY W/O ANG PCTRS SNOMED Code(s): 28297442 (9) Diabetes mellitus Current Visit: Yes Status: Acute Code(s): E11.9 - TYPE 2 DIABETES MELLITUS WITHOUT COMPLICATIONS SNOMED Code(s): 61075584 (10) Hyperlipidemia Current Visit: Yes Status: Acute Code(s): E78.5 - HYPERLIPIDEMIA, U NSPECIFIED SNOMED Code(s): 12076500 (11) History of GI bleed Current Visit: Yes Status: Acute Code(s): Z87.19 - PERSONAL HISTORY OF OTHER DISEASES OF THE DIGESTIVE SYSTEM SNOMED Code(s): 886399151 Plan: Plan: 1. Patient has been experiencing bilateral lower extremity numbness greater at the feet below the knees bilaterally over the past 4 days without injury. He does have history of chronic low back pain. He has difficulty with prolonged ambulation. He states he did have further evaluation approximately one year ago in regards to his low back pain. He worked with physical therapy at a time without significant benefit. [facility] More recently this medication has not been controlling his pain. CT imaging of the lumbar spine taken during his admission to the hospital that show significant multilevel degenerative change most significant at L2-3, L3-4, and L4-5. He denies specific lower extremity radiculopathy pattern or lower extremity weakness but has had difficulty with ambulation and mobility due to his back pain and lower extremity numbness. He denies having a pacemaker. Given his significant symptoms and significant degenerative changes found on CT imaging and lumbar spine, we'll plan to obtain MRI imaging lumbar spine for further evaluation. Following completion of his MRI, we will review the MRI and discuss his MRI results and further treatment options with him. We did discuss he may be a candidate for further treatment and evaluation with pain management. Patient and his family states they would like to work to conservative treatment options and would be willing for consultation with pain m anagement to discuss the possibility of injections or other treatment options. We'll plan to consult pain management to evaluate the patient. We did discuss that he were to fail all conservative treatment options, he could potentially be a candidate for surgical intervention in regards to his lumbar spine. We will continue to follow patient closely and will follow up with him following the completion of his lumbar MRI. 2. Consultation is been placed with pain management 3. Patient will continue to be seen and examined by medicine for his other medical diagnoses Time with Patient: Greater than 30 (Including obtaining history, physical examination, reviewing of imaging, and dictation.)
[2022-04-05 20:21] LABS: Glucose,Whole Blood 168 mg/dL (75-99)
[2022-04-05] MEDS: GABAPENTIN 100 MG CAP PO SCH (20:41)
[2022-04-05] MEDS: ATORVASTATIN 40 MG TAB PO SCH (20:41)
[2022-04-05] MEDS: INSULIN DETEMIR (LEVEMIR) 100 UNIT/ML SYR SQ SCH (20:43)
[2022-04-06] MEDS: HYDROmorphone 0.5 MG/0.5 ML SYRINGE IVP PRN ×5 (02:46→23:48)
[2022-04-06 07:08] LABS: Glucose,Whole Blood 137 mg/dL (75-99)
[2022-04-06] MEDS ORDERED: methylPREDNISolone ACETATE 40 MG/ML 1 ML VIAL ONE (07:55)
[2022-04-06] MEDS ORDERED: IOPAMIDOL M200 10 ML VIAL ONE (07:55)
[2022-04-06] MEDS ORDERED: fentaNYL (PF) 50 MCG/ML 2 ML AMP ONE (07:55)
[2022-04-06] MEDS ORDERED: hydrALAZINE HCL 20 MG/ML 1 ML VIAL ONE (07:55)
--- NOTE | 2022-04-06 08:07 | P.PCN ---
Date of Procedure: 04/06/22 Procedure(s) Performed: PREOPERATIVE DIAGNOSIS: 1- Lumbar Degenerative Disc Diseases 2-Lumbar spondylosis with Facet arthropathy without myelopathy. 3-lumbar spinal stenosis. 4-lumbar radiculopathy POSTOPERATIVE DIAGNOSIS: Same as preop diagnosis. PROCEDURE 1. Lumbar epidural steroid injection under fluoroscopic guidance at the L4-5 level. (Fluoroscopy imaging was available in radiology department) 2. Lumbar epidurogram. ANESTHESIA: Local with 1% lidocaine 3 ml and , moderate sedation with intravenous fentanyle 50 Mcg EBL: Minimal PROCEDURE INDICATION: The patient with low back pain and radiculitis symptoms unresponsive to conservative treatment. Fluoroscopy was used to optimize visualization of the needle placement and to maximize safety. PROCEDURE DESCRIPTION / TECHNIQUE: The patient was seen and identified in the preoperative area. Risks, benefits, complications including but not limited to infections ,bleeding ,allergic reaction to the medications ,nerve damage and not complete pain releife , and alternatives were discussed with the patient. The patient agreed to proceed with the procedure and signed the consent. IV was started, and vital signs were stable. Patient was taken to the OR and time out was completed. The patient was placed in the prone position on procedure table and a pillow was placed under the abdomen to reduce lumbar lordosis. The lumbosacral area was prepped and draped in the usual sterile fashion.ere closely monitored during the procedure. Conscious sedation was used during the procedure to decrease patients anxiety. Vital signs was monitered during the entire procedure. Using anterior-posterior fluoroscopy, the L4-5 interlaminar space was identified and the skin over this site was marked and then infiltrated with 1% lidocaine subcutaneously. Subsequently, a 20-gauge Tuohy epidural needle was inserted and advanced toward the epidural space using the ``Loss of resistance technique and guided by AP and lateral fluoroscopy. The correct needle position in the epidural space was verified with the injection of 2 mL of the water soluble contrast dye Isovue 200 contrast and observing an excellent epidurogram with the epidural spread of the dye, after negative aspiration for blood and CSF and in the absence of paresthesias. Again after negative aspiration, a 6 ml mixture containing 40 mg of Depo-medrol , and 2 ml of preservative free Normal Saline, and 2 ml of preservative free lidocaine 1% solution was injected and a washout of epidurogram was seen. Needle was withdrawn intact, skin was cleansed, and bandages were applied. COMPLICATIONS: None DISPOSITION / PLANS: The patient was placed in a supine position and transferred to the recovery area in a stable condition for observation. There was no evidence of lower extremity motor or sensory deficit after the procedure. Patient was discharged from the recovery room after meeting discharge criteria. Home discharge instructions were given to the patient by the staff. The patient was reexamined prior to discharge. The patient will schedule a follow up in the clinic in 2-4 weeks.
[2022-04-06] MEDS ORDERED: IV FLUID CONTINUATION 1,000 ML IV ONE ×2 (08:11)
[2022-04-06] MEDS: INSULIN ASPART (NovoLOG) 100 UNIT/ML VIAL SQ SCH ×7 (08:53→21:55)
[2022-04-06] MEDS: ASPIRIN 81 MG PO SCH (08:53)
[2022-04-06] MEDS: MELOXICAM 7.5 MG TAB PO SCH ×2 (08:53→21:54)
[2022-04-06] MEDS: FOLIC ACID 1 MG TAB PO SCH (08:54)
[2022-04-06] MEDS: methocarbamoL 500 MG TAB PO SCH ×2 (08:54→21:54)
[2022-04-06] MEDS: PROPRANOLOL 40 MG TAB PO SCH ×2 (08:54→21:54)
[2022-04-06 09:35] LABS: Basophils # (A) 0.1 k/uL (0-0.2); Basophils % (A) 2 %; Eosinophils # (A) 0.3 k/uL (0-0.7); Eosinophils % (A) 4 %; HCT 46.6 % (39.0-53.0); HGB 14.3 gm/dL (13.0-17.5); Lymphocytes # (A) 1.6 k/uL (1.0-4.8); Lymphocytes % (A) 19 %; MCH 29.9 pg (25.0-35.0); MCHC 30.8 g/dL (31.0-37.0); MCV 97.2 fL (80.0-100.0); Mean Platelet Volume 7.5; Monocytes # (A) 0.6 k/uL (0-1.0); Monocytes % (A) 7 %; Neutrophils # (A) 5.4 k/uL (1.3-7.7); Neutrophils % (A) 67 %; Platelet Count 164 k/uL (150-450); RDW 14.3 % (11.5-15.5); WBC 8.1 k/uL (3.8-10.6)
[2022-04-06 09:40] LABS: ALT 35 U/L (4-49); AST 32 U/L (17-59); African American GFR (CKD) >90 (>60 ml/min/1.73 sqM); Albumin/Globulin Ratio 1.7; Alkaline Phosphatase 48 U/L (38-126); Anion Gap 9 mmol/L; Blood Urea Nitrogen 24 mg/dL (9-20); Calcium 8.8 mg/dL (8.4-10.2); Carbon Dioxide 20 mmol/L (22-30); Chloride 108 mmol/L (98-107); Globulin 2.3 g/dL; Glucose 124 mg/dL (74-99); Non-African American GFR(CKD) 85 (>60 ml/min/1.73 sqM); Potassium 4.5 mmol/L (3.5-5.1); Sodium 137 mmol/L (137-145); Total Bilirubin 0.5 mg/dL (0.2-1.3); Total Protein 6.3 g/dL (6.3-8.2)
--- NOTE | 2022-04-06 10:00 | P.PN ---
Progress Note - Text Progress Note Date: 04/06/22 Patient is seen and examined today at bedside. The patient just underwent an epidural steroid injection this morning. He is not sure if is making a difference thus far. He is selling flat in bed. He says he is not having severe pain while he's laying still at his back and lower extremities but he is not sure if he will have significant pain when he tries to get up. He does not feel like he can get up on his own this point. He denies any headaches. Physical Exam Afebrile with stable vital signs Abdomen is soft nontender. Chest has good excursion deep and space expiration Extremities have not had neurologic change from prior to surgery. He has sustained dorsal flexion plantarflexion and EHL intact in bilateral lower extremities Calves and thighs were soft nontender without evidence of DVT. His imaging is again reviewed which is significant disc degeneration and evidence of stenosis at his lumbar spine Assessment/Plan Acute on chronic lower back pain with acute exacerbation Degenerative disc disease with spinal stenosis at his lumbar spine Lower extremity radiculopathy Facet arthritis Neurogenic claudication The patient has a number of changes in his lumbar spine with chronic stenosis and neurogenic claudication with an acute flareup. Hopefully we can get this settled down with medications and interventional pain management. He had an injection this morning we'll see if that makes a good difference for him. He may need a short course of oral steroid as well along with physical therapy to help immobilize. He normally lives with himself that he may need long term assistance post discharge from the hospital. I don't have an acute plan for surgical intervention on this admission and would like to see how conservative measures help him. We will continue to increase the patient's mobilization with therapy. We will continue pain control with oral or IV medications. We'll continue to follow patient closely.
[2022-04-06 11:45] LABS: Glucose,Whole Blood 144 mg/dL (75-99)
--- NOTE | 2022-04-06 15:33 | P.PN ---
Subjective Progress Note Date: 04/06/22 Patient's pain is much better controlled today. He is status post epidural injection with pain control management team. Patient is able to work with physical therapy at this time. He is pending lumbar imaging of with MRI. Tentative plan is for PT/OT with pain control, conservative management. Spine s urgery continues to follow along with us. Gen: awake, alert HEENT: normocephalic, atraumatic, good hearing acuity, moist mucous membranes Resp: good air exchange, breathing comfortably with no accessory muscle use CVS: good distal perfusion x 4, GI: soft, NTTP, ND : no SPT, no CVAT, lopez catheter not present MSK: no pitting edema, no clubbing Neuro: non-focal, moving all extremities Psych: cooperative, euthymic mood Assessment/plan: Acute on chronic exacerbation of back pain, intractable Lumbar spinal stenosis, L4/5 Degenerative disc disease in the lumbar spine -Admit to observation -Pain control, status post epidural injection -Pain control management consultation -Spine surgery consultation -Bowel regimen -PT/OT CAD Hypertension Hyperlipidemia Diabetes type 2 -Home medications reviewed and reconciled Patient is full code DVT prophylaxis with heparin 3 times a day Objective - Vital Signs Vital signs: Vital Signs Temp 97.6 F 04/06/22 13:00 Pulse 54 L 04/06/22 13:00 Resp 16 04/06/22 13:00 BP 149/80 04/06/22 13:00 Pulse Ox 94 L 04/06/22 13:00 FiO2 Intake & Output 04/05/22 04/06/22 04/06/22 18:59 06:59 18:59 Intake Total 240 50 Output Total 300 350 Balance -300 -110 50 Weight 104.326 kg Intake: IV 50 Oral 240 Output: Urine 300 350 Other: Voiding Method Urinal Toilet Urinal Urinal - Labs CBC & Chem 7: 04/06/22 08:54 04/06/22 08:54 Labs: Abnormal Lab Results - Last 24 Hours (Table) 04/05/22 04/05/22 04/06/22 Range/Units 17:06 20:19 07:06 MCHC (31.0-37.0) g/dL Chloride (98-107) mmol/L Carbon Dioxide (22-30) mmol/L BUN (9-20) mg/dL Glucose (74-99) mg/dL POC Glucose (mg/dL) 140 H 168 H 137 H (75-99) mg/dL 04/06/22 04/06/22 04/06/22 Range/Units 08:54 08:54 11:43 MCHC 30.8 L (31.0-37.0) g/dL Chloride 108 H (98-107) mmol/L Carbon Dioxide 20 L (22-30) mmol/L BUN 24 H (9-20) mg/dL Glucose 124 H (74-99) mg/dL POC Glucose (mg/dL) 144 H (75-99) mg/dL
--- NOTE | 2022-04-06 15:55 | FL ---
EXAMINATION TYPE: FL guided pain mgmt statistic DATE OF EXAM: 04/06/2022 HISTORY: Fluoroscopy time 2 seconds of fluoroscopy provided. IMPRESSION: 1. Fluoroscopy time.
--- NOTE | 2022-04-06 16:13 | MR ---
EXAMINATION TYPE: MR lumbar spine wo con DATE OF EXAM: 04/06/2022 COMPARISON: 06/21/2021 HISTORY: Chronic Back pain, Tingling and burning in rt foot TECHNIQUE: T1 and T2 axial and sagittal images of the lumbar spine are submitted. FINDINGS: Exam limited by motion artifact. There is no abnormal signal seen within the visualized spinal cord or paraspinal soft tissues. Simple appearing right renal cyst partially included on the exam. At T12-L1 there is no disc herniation or canal stenosis. There is a chronic appearing mild superior e ndplate compression fracture of T12 At L1-2 there is degenerative disc disease. Facet arthropathy. Circumferential disc bulging and mild foraminal encroachment. No Canal stenosis. At L2-3 there is a grade 1 anterolisthesis with advanced facet arthropathy and ligamentum flavum hype rtrophy. Severe central stenosis with broad-based disc herniation. Moderate bilateral foraminal encro achment. At L3-4 there is severe degenerative disc disease with broad-based disc protrusion, advanced facet ar thropathy and ligamentum flavum hypertrophy. Severe canal stenosis and moderate to severe bilateral f oraminal encroachment. Discogenic marrow changes. At L4-5 there is degenerative disc disease with advanced facet arthropathy and ligamentum flavum hype rtrophy. Broad-based disc protrusion with severe canal stenosis and bilateral foraminal encroachment. On today's exam there is increased signal involving the L4-L5 disc on the T2 image only. No surround ing soft tissue mass. May be discogenic. If concern for discitis correlate with contrast-enhanced exa m. At L5-S1 there is is degenerative disc disease with facet arthropathy. Lateral disc bulging to the le ft noted with mild right foraminal encroachment and moderate left foraminal encroachment. Anterior hy pertrophic spurring discogenic marrow changes. IMPRESSION: 1. Severe multilevel degenerative disc disease with multilevel facet arthropathy and disc protrusion or herniation resulting in multilevel severe canal stenosis and bilateral foraminal encroachment. 2. There is increased signal on today's exam within the L4-L5 disc base. This was not noted on the pr ior exam and still may be discogenic. No definite surrounding inflammatory changes. If there is alisha rn for discitis correlate with postcontrast T1 axial and sagittal images. 3. Stable chronic compression fracture T12.
[2022-04-06 17:32] LABS: Glucose,Whole Blood 122 mg/dL (75-99)
[2022-04-06 20:31] LABS: Glucose,Whole Blood 205 mg/dL (75-99)
[2022-04-06] MEDS: ATORVASTATIN 40 MG TAB PO SCH (21:54)
[2022-04-06] MEDS: INSULIN DETEMIR (LEVEMIR) 100 UNIT/ML SYR SQ SCH (21:55)
[2022-04-06] MEDS: GABAPENTIN 100 MG CAP PO SCH (21:55)
[2022-04-07] MEDS: HYDROcodone/APAP 5-325MG 1 EACH TAB PO PRN ×2 (03:05→21:30)
[2022-04-07 06:59] LABS: Glucose,Whole Blood 111 mg/dL (75-99)
[2022-04-07] MEDS: INSULIN ASPART (NovoLOG) 100 UNIT/ML VIAL SQ SCH ×7 (08:52→21:28)
[2022-04-07] MEDS: MELOXICAM 7.5 MG TAB PO SCH ×2 (08:53→21:29)
[2022-04-07] MEDS: FOLIC ACID 1 MG TAB PO SCH (08:53)
[2022-04-07] MEDS: PROPRANOLOL 40 MG TAB PO SCH ×2 (08:54→21:29)
[2022-04-07] MEDS: methocarbamoL 500 MG TAB PO SCH ×2 (08:54→21:28)
[2022-04-07] MEDS: ASPIRIN 81 MG PO SCH (08:54)
[2022-04-07 11:38] LABS: Glucose,Whole Blood 117 mg/dL (75-99)
[2022-04-07] MEDS: HYDROmorphone 0.5 MG/0.5 ML SYRINGE IVP PRN ×2 (12:34→16:35)
--- NOTE | 2022-04-07 14:00 | P.PN ---
Subjective Progress Note Date: 04/07/22 No new complaints today. Pending placement. Gen: awake, alert HEENT: normocephalic, atraumatic, good hearing acuity, moist mucous membranes Resp: good air exchange, breathing comfortably with no accessory muscle use CVS: good distal perfusion x 4, GI: soft, NTTP, ND : no SPT, no CVAT, lopez catheter not present MSK: no pitting edema, no clubbing Neuro: non-focal, moving all extremities Psych: cooperative, euthymic mood Assessment/plan: Acute on chronic exacerbation of back pain, intractable Lumbar spinal stenosis, L4/5 Degenerative disc disease in the lumbar spine -Admit to observation -Pain control, status post epidural injection -Pain control management consultation -Spine surgery consultation -Bowel regimen -PT/OT CAD Hypertension Hyperlipidemia Diabetes type 2 -Home medications reviewed and reconciled Patient is full code DVT prophylaxis with heparin 3 times a day Objective - Vital Signs Vital signs: Vital Signs Temp 97.6 F 04/07/22 13:00 Pulse 50 L 04/07/22 13:00 Resp 16 04/07/22 13:00 BP 152/80 04/07/22 13:00 Pulse Ox 92 L 04/07/22 13:00 FiO2 Intake & Output 04/06/22 04/07/22 04/07/22 18:59 06:59 18:59 Intake Total 50 450 Output Total 1200 Balance 50 -750 Weight 104.326 kg Intake: IV 50 Oral 450 Output: Urine 1200 Other: Voiding Method Urinal Urinal Urinal - Labs CBC & Chem 7: 04/06/22 08:54 04/06/22 08:54 Labs: Abnormal Lab Results - Last 24 Hours (Table) 04/06/22 04/06/22 04/07/22 Range/Units 17:30 20:30 06:57 POC Glucose (mg/dL) 122 H 205 H 111 H (75-99) mg/dL 04/07/22 Range/Units 11:36 POC Glucose (mg/dL) 117 H (75-99) mg/dL
[2022-04-07 17:49] LABS: Glucose,Whole Blood 140 mg/dL (75-99)
[2022-04-07 21:04] LABS: Glucose,Whole Blood 210 mg/dL (75-99)
[2022-04-07] MEDS: GABAPENTIN 100 MG CAP PO SCH (21:27)
[2022-04-07] MEDS: ATORVASTATIN 40 MG TAB PO SCH (21:27)
[2022-04-07] MEDS: INSULIN DETEMIR (LEVEMIR) 100 UNIT/ML SYR SQ SCH (21:28)
[2022-04-08] MEDS: HYDROcodone/APAP 5-325MG 1 EACH TAB PO PRN ×5 (02:11→21:33)
[2022-04-08 07:21] LABS: Glucose,Whole Blood 117 mg/dL (75-99)
[2022-04-08] MEDS: FOLIC ACID 1 MG TAB PO SCH (08:26)
[2022-04-08] MEDS: methocarbamoL 500 MG TAB PO SCH ×2 (08:27→21:33)
[2022-04-08] MEDS: MELOXICAM 7.5 MG TAB PO SCH ×2 (08:27→21:32)
[2022-04-08] MEDS: PROPRANOLOL 40 MG TAB PO SCH ×2 (08:27→21:33)
[2022-04-08] MEDS: ASPIRIN 81 MG PO SCH (08:27)
[2022-04-08] MEDS: INSULIN ASPART (NovoLOG) 100 UNIT/ML VIAL SQ SCH ×7 (08:29→21:32)
--- NOTE | 2022-04-08 10:53 | P.PN ---
Subjective Progress Note Date: 04/08/22 No new complaints today. Pending placement. Gen: awake, alert HEENT: normocephalic, atraumatic, good hearing acuity, moist mucous membranes Resp: good air exchange, breathing comfortably with no accessory muscle use CVS: good distal perfusion x 4, GI: soft, NTTP, ND : no SPT, no CVAT, lopez catheter not present MSK: no pitting edema, no clubbing Neuro: non-focal, moving all extremities Psych: cooperative, euthymic mood Assessment/plan: Acute on chronic exacerbation of back pain, intractable Lumbar spinal stenosis, L4/5 Degenerative disc disease in the lumbar spine -Admit to observation -Pain control, status post epidural injection -Pain control management consultation -Spine surgery consultation -Bowel regimen -PT/OT CAD Hypertension Hyperlipidemia Diabetes type 2 -Home medications reviewed and reconciled Patient is full code DVT prophylaxis with heparin 3 times a day Objective - Vital Signs Vital signs: Vital Signs Temp 97.9 F 04/08/22 04:47 Pulse 68 04/08/22 10:37 Resp 18 04/08/22 10:37 BP 104/67 04/08/22 04:47 Pulse Ox 94 L 04/08/22 04:47 FiO2 Intake & Output 04/07/22 04/08/22 04/08/22 18:59 06:59 18:59 Intake Total 600 Output Total 4 Balance 600 -4 Intake: Oral 600 Output: Urine 4 Other: Voiding Method Urinal Urinal Urinal # Bowel Movements 3 - Labs CBC & Chem 7: 04/06/22 08:54 04/06/22 08:54 Labs: Abnormal Lab Results - Last 24 Hours (Table) 04/07/22 04/07/22 04/07/22 Range/Units 11:36 17:46 21:01 POC Glucose (mg/dL) 117 H 140 H 210 H (75-99) mg/dL 04/08/22 Range/Units 07:20 POC Glucose (mg/dL) 117 H (75-99) mg/dL
[2022-04-08 12:23] LABS: Glucose,Whole Blood 191 mg/dL (75-99)
--- NOTE | 2022-04-08 12:54 | P.PN ---
Progress Note - Text Progress Note Date: 04/07/22 Orthopedic spine: History of present illness: Patient is a very pleasant 82-year-old male who is seen and examined at the bedside for follow-up evaluation of his lumbar spine. He underwent lumbar MRI imaging yesterday. He states he is known have chronic low back pain. He did have an episode last year which required admission and further evaluation in the hospital setting for his back pain. His back pain did have some improvement but he continues to have some chronic low back pain. Yesterday he was seen and examined by pain management and underwent an injection. He states he had significant pain following that injection yesterday. He does feel his low back pain has improved this morning. He does continue to experience numbness of bilateral lower extremities. Today he states the pain is most significant radiating from his lumbar spine, towards the right buttock, and over the right lateral thigh. The numbness continues to radiate in his feet and lower extremities below the knees with some improvement over the thighs. He has had difficulty mobilizing due to his low back pain and lower extremity numbness. He previously had CT imaging of the lumbar spine during his admission as well. He does admit to difficulty with prolonged ambulation. He does not have a specific lower extremity radiculopathy pattern or specific lower extremity weakness. Patient's other medical diagnoses include coronary artery disease, diabetes mellitus, history of GI bleed, and hyperlipidemia. Patient denies any saddle anesthesia. He is urinating without difficulty. He has normal sensation with urination. He has not had a bowel movement since his admission but is not experiencing any abdominal pain. He states he has been eating more food but has not had a bowel movement yet. He is passing gas. His abdomen is soft nontender. He denies fever or chills. Patient is afebrile. He does not have an elevated WBC. Did discuss his lumbar MRI in significant detail. We did discuss he would be a candidate for surgical intervention if he were to fail conservative treatment options. Currently he'll plan to continue with conservative treatment with pain management. Physical exam: Patient is awake, alert, and oriented 3 Vital signs stable Good chest excursion with deep inspiration and expiration Abdomen soft nontender Examination of lumbar spine reveals skin is intact with no abrasions, laceration s, or bruises; no erythema, purulence or signs of infection Patient has significant difficulty with rolling over in bed Dorsiflexion, plantarflexion, and extensor hallucis longus positive sustained bi laterally Patient has difficulty performing hip flexion of bilateral lower extremities No pain with pelvic rocking No lower extremity hyperreflexia bilaterally Negative Lasegue's test bilaterally No signs or symptoms of DVT; no calf pain Reported decreased sensation with palpation of the bilateral feet and lower extremities below the knees with improvement in sensation over the thighs bilaterally No pain with internal and external rotation of the hips bilaterally Neurovascularly intact Pertinent studies: MRI of the lumbar spine taken on 04/06/2022: T12 chronic appearing superior endplate compression fracture; L1-2 degenerative disc disease, facet arthropathy, and disc bulging with foraminal encroachment; L2-3 grade 1 spondylolisthesis, advanced facet arthropathy, broad-based disc herniation, and ligamentum flavum hypertrophy resulting in severe central canal stenosis and moderate bilateral neural foraminal stenosis; L3-4 severe degenerative disc di sease, broad-based disc protrusion, advanced facet arthropathy, and ligament flavum hypertrophy resulting in severe central canal stenosis and moderate to severe bilateral neural foraminal stenosis with discogenic marrow changes; L4-5 degenerative disc disease, advanced facet arthropathy, broad-based disc protrusion, and ligament flavum hypertrophy resulting in severe central canal stenosis and bilateral neural foraminal stenosis; L5-S1 degenerative disc disease, facet arthropathy, and lateral disc bulging resulting in mild right and moderate left neural foraminal encroachment with anterior osteophytic spurring and discogenic marrow change; Increased signal on today's exam at the L4-5 disc space which may be discogenic or could obtain contrast imaging of concern for discitis CT of the lumbar spine taken on 04/04/2022: L2-3 spondylolisthesis, facet arthropathy, and disc protrusion resulting in central canal stenosis and bilateral neural foraminal stenosis; L3-4 asymmetric degenerative disc disease, severe degenerative disc disease, endplate change, facet arthropathy, and disc protrusion resulting in central canal stenosis and neural foraminal stenosis; L4-5 large left facet arthropathy with left neural foraminal stenosis and central stenosis Assessment: Chronic low back pain Neurogenic claudication Bilateral lower extremity numbness past 4 days Difficulty ambulation due to pain and numbness L2-3 spondylolisthesis L2-3, L3-4, and L4-5 severe spinal stenosis and neural foraminal stenosis Lumbar facet arthropathy Lumbar stenosis Lumbar degenerative disc disease Coronary artery disease Diabetes mellitus History of GI bleed Hyperlipidemia Plan: 1. Since being seen and examined yesterday, MRI imaging has been performed of the lumbar spine. This MRI has been reviewed and discussed with the patient. Reviewing of imaging does show significant and severe degenerative changes most significant at L2-3, L3-4, and L4-5 with broad-based disc herniation, degenerative disc disease, and facet arthropathy resulting in severe central canal stenosis and bilateral neural foraminal stenosis. Patient has been experiencing bilateral lower extremity numbness greater at the feet below the knees bilaterally over the past 6 days without injury. He does have history of chronic low back pain. He has difficulty with prolonged ambulation. He was seen and examined by pain management and underwent an injection at L4-5 yesterday. He states his low back pain is better controlled this morning as compared to yesterday. He does continue to have some numbness in the lower extremities and states currently the pain is most significant radiating from his lumbar spine, towards the right buttock, and over the right lateral thigh. He continues to deny specific lower extremity weakness but has had difficulty with ambulation and mobility due to his back pain and lower extremity numbness. Curr ently, he'll plan to continue conservative treatment. He will plan to continue following with pain management for further treatment and evaluation. We did discuss his based on his symptoms and his imaging that correlates well with his symptoms, he would be a candidate for surgical intervention if she were to fail conservative treatment options. We discussed the most likely postsurgical intervention would be an L2-3, L3-4, and L4-5 minimally invasive posterior lateral decompression and fusion with transforaminal lumbar interbody fusion. Patient does state he would like to exhaust conservative treatment options before discussing proceeding forward with surgical intervention. At this time, patient will be clear for discharge from an orthopedic spine standpoint. We will plan to have him follow up in approximately 4 weeks with Cas Adrian or Dr. Luis Miguel Evangelista at [facility] for further evaluation and to discuss further treatment options depending how he is progressing with conservative treatment. MRI report states there is some increased signal on the examination at the L4-5 disc space. The patient did undergo an injection with pain management at the L4-5 disc space in which this increased signal could correlate to that injection. Clinically, I do not feel there is any concern for discitis with this patient. He has remained afebrile and does not have an elevated WBC. At this time, we are not currently planning for contrast imaging of his lumbar spine. 2. Patient will continue to be seen and examined by pain management. 3. Patient will continue to be seen and examined by medicine for his other medical diagnoses
[2022-04-08 17:30] LABS: Glucose,Whole Blood 115 mg/dL (75-99)
[2022-04-08 21:17] LABS: Glucose,Whole Blood 190 mg/dL (75-99)
[2022-04-08] MEDS: GABAPENTIN 100 MG CAP PO SCH (21:31)
[2022-04-08] MEDS: ATORVASTATIN 40 MG TAB PO SCH (21:31)
[2022-04-08] MEDS: INSULIN DETEMIR (LEVEMIR) 100 UNIT/ML SYR SQ SCH (21:32)
[2022-04-09] MEDS: HYDROcodone/APAP 5-325MG 1 EACH TAB PO PRN ×2 (05:43→14:22)
[2022-04-09 07:22] LABS: Glucose,Whole Blood 101 mg/dL (75-99)
[2022-04-09] MEDS: INSULIN ASPART (NovoLOG) 100 UNIT/ML VIAL SQ SCH ×7 (08:23→21:15)
[2022-04-09] MEDS: MELOXICAM 7.5 MG TAB PO SCH ×2 (08:27→21:14)
[2022-04-09] MEDS: FOLIC ACID 1 MG TAB PO SCH (08:27)
[2022-04-09] MEDS: methocarbamoL 500 MG TAB PO SCH ×2 (08:28→21:15)
[2022-04-09] MEDS: PROPRANOLOL 40 MG TAB PO SCH ×2 (08:28→21:15)
[2022-04-09] MEDS: ASPIRIN 81 MG PO SCH (08:28)
--- NOTE | 2022-04-09 08:52 | P.PN ---
Subjective Progress Note Date: 04/09/22 No new complaints today. Pending placement. Gen: awake, alert HEENT: normocephalic, atraumatic, good hearing acuity, moist mucous membranes Resp: good air exchange, breathing comfortably with no accessory muscle use CVS: good distal perfusion x 4, GI: soft, NTTP, ND : no SPT, no CVAT, lopez catheter not present MSK: no pitting edema, no clubbing Neuro: non-focal, moving all extremities Psych: cooperative, euthymic mood Assessment/plan: Acute on chronic exacerbation of back pain, intractable Lumbar spinal stenosis, L4/5 Degenerative disc disease in the lumbar spine -Admit to observation -Pain control, status post epidural injection -Pain control management consultation -Spine surgery consultation -Bowel regimen -PT/OT CAD Hypertension Hyperlipidemia Diabetes type 2 -Home medications reviewed and reconciled Patient is full code DVT prophylaxis with heparin 3 times a day Objective - Vital Signs Vital signs: Vital Signs Temp 97.6 F 04/09/22 05:07 Pulse 55 L 04/09/22 05:07 Resp 18 04/09/22 05:07 BP 154/54 04/09/22 05:07 Pulse Ox 95 04/09/22 05:07 FiO2 Intake & Output 04/08/22 04/09/22 04/09/22 18:59 06:59 18:59 Intake Total 500 Balance 500 Intake: Oral 500 Other: Voiding Method Urinal Toilet Toilet Urinal Urinal # Voids 2 5 # Bowel Movements 1 - Labs CBC & Chem 7: 04/06/22 08:54 04/06/22 08:54 Labs: Abnormal Lab Results - Last 24 Hours (Table) 04/08/22 04/08/22 04/08/22 Range/Units 12:11 17:19 21:11 POC Glucose (mg/dL) 191 H 115 H 190 H (75-99) mg/dL 04/09/22 Range/Units 07:19 POC Glucose (mg/dL) 101 H (75-99) mg/dL
[2022-04-09 12:28] LABS: Glucose,Whole Blood 88 mg/dL (75-99)
[2022-04-09 17:05] LABS: Glucose,Whole Blood 201 mg/dL (75-99)
[2022-04-09 21:02] LABS: Glucose,Whole Blood 163 mg/dL (75-99)
[2022-04-09] MEDS: ATORVASTATIN 40 MG TAB PO SCH (21:15)
[2022-04-09] MEDS: INSULIN DETEMIR (LEVEMIR) 100 UNIT/ML SYR SQ SCH (21:15)
[2022-04-09] MEDS: GABAPENTIN 100 MG CAP PO SCH (21:15)
[2022-04-10] MEDS: HYDROcodone/APAP 5-325MG 1 EACH TAB PO PRN ×3 (01:53→11:37)
[2022-04-10 07:10] LABS: Glucose,Whole Blood 98 mg/dL (75-99)
[2022-04-10] MEDS: INSULIN ASPART (NovoLOG) 100 UNIT/ML VIAL SQ SCH ×4 (07:20→13:10)
[2022-04-10] MEDS: PROPRANOLOL 40 MG TAB PO SCH (08:03)
[2022-04-10] MEDS: methocarbamoL 500 MG TAB PO SCH (08:03)
[2022-04-10] MEDS: MELOXICAM 7.5 MG TAB PO SCH (08:03)
[2022-04-10] MEDS: FOLIC ACID 1 MG TAB PO SCH (08:04)
[2022-04-10] MEDS: ASPIRIN 81 MG PO SCH (08:04)
--- NOTE | 2022-04-10 10:27 | P.PN ---
Subjective Progress Note Date: 04/10/22 No new complaints today. Pending placement. Gen: awake, alert HEENT: normocephalic, atraumatic, good hearing acuity, moist mucous membranes Resp: good air exchange, breathing comfortably with no accessory muscle use CVS: good distal perfusion x 4, GI: soft, NTTP, ND : no SPT, no CVAT, lopez catheter not present MSK: no pitting edema, no clubbing Neuro: non-focal, moving all extremities Psych: cooperative, euthymic mood Assessment/plan: Acute on chronic exacerbation of back pain, intractable Lumbar spinal stenosis, L4/5 Degenerative disc disease in the lumbar spine -Admit to observation -Pain control, status post epidural injection -Pain control management consultation -Spine surgery consultation -Bowel regimen -PT/OT CAD Hypertension Hyperlipidemia Diabetes type 2 -Home medications reviewed and reconciled Patient is full code DVT prophylaxis with heparin 3 times a day Objective - Vital Signs Vital signs: Vital Signs Temp 97.8 F 04/10/22 05:00 Pulse 47 L 04/10/22 05:00 Resp 16 04/10/22 05:00 BP 142/75 04/10/22 05:00 Pulse Ox 94 L 04/10/22 05:00 FiO2 Intake & Output 04/09/22 04/10/22 04/10/22 18:59 06:59 18:59 Intake Total 240 Output Total 600 Balance -360 Intake: Oral 240 Output: Urine 600 Other: Voiding Method Toilet Toilet Urinal Urinal # Voids 2 - Labs CBC & Chem 7: 04/06/22 08:54 04/06/22 08:54 Labs: Abnormal Lab Results - Last 24 Hours (Table) 04/09/22 04/09/22 Range/Units 17:04 20:56 POC Glucose (mg/dL) 201 H 163 H (75-99) mg/dL
[2022-04-10 11:00] LABS: Glucose,Whole Blood 170 mg/dL (75-99)
[2022-04-10 11:42] VITALS: BP 127/75; PULSE 56; RESP 13; TEMP 97.4
--- NOTE | 2022-04-10 14:08 | P.DS ---
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 Workup included computed tomography scan of the lumbar spine as well as MRI of the lower back which demonstrated severe lumbar spinal stenosis and L4/5 as well as diffuse degenerative disc disease in the lumbar spine. Patient was seen by orthopedic surgery service who recommended pain control with spinal epidural, completed by pain management on 04/06. Patient's pain was much better controlled with oral medication following the steroid injection to the lower back. With peak surgery service recommended conservative management with trial of PT/OT prior to any consideration of operative management. Patient and family were amenable to this plan. Patient was doing well with physical therapy, but still would benefit from [facility] facility for rehab. Insurance authorization completed today after 4 days a pending status, and patient was approved for a 20 day rehabilitation stay. Patient was discharged to rehab in good condition. Patient will follow up with orthopedic surgery service as well as primary care physician. I spent 40 minutes coordinating this complex discharge, discharge date is 04/10 Gen: awake, alert HEENT: normocephalic, atraumatic, good hearing acuity, moist mucous membranes Resp: good air exchange, breathing comfortably with no accessory muscle use CVS: good distal perfusion x 4, GI: soft, NTTP, ND : no SPT, no CVAT, lopez catheter not present MSK: no pitting edema, no clubbing Neuro: non-focal, moving all extremities Psych: cooperative, euthymic mood Patient Condition at Discharge: Good Plan - Discharge Summary Discharge Rx Participant: No New Discharge Prescriptions: New Lactulose [Cephulac] 20 gm PO DAILY PRN ml PRN Reason: Constipation Loperamide [Imodium] 2 mg PO Q2HR PRN cap PRN Reason: Loose Stool Insulin Detemir (Levemir) [Levemir] 31 unit SQ HS each Mag Hydrox/Al Hydrox/Simeth [Maalox] 15 ml PO Q6HR PRN ml PRN Reason: Indigestion HYDROcodone/APAP 5-325MG [[place] 5-325] 1 each PO Q4HR PRN #18 tab PRN Reason: Moderate Pain INSULIN ASPART (NovoLOG) [NovoLOG (formulary)] 10 unit SQ AC-TID each Acetaminophen Tab [Tylenol] 650 mg PO Q6HR PRN tab PRN Reason: Mild Pain Or Fever > 100.5 Gabapentin [Neurontin] 100 mg PO HS #3 cap Continue Folic Acid 1 mg PO DAILY Atorvastatin [Lipitor] 40 mg PO HS Magnesium Oxide [Mag-Ox] 250 mg PO DAILY Cholecalciferol [Vitamin D3 (10 Mcg = 400 Iu)] 400 unit PO DAILY Aspirin [Adult Low Dose Aspirin EC] 81 mg PO DAILY Multivitamins, Thera [Multivitamin (formulary)] 1 tab PO DAILY Meloxicam [Mobic] 7.5 mg PO BID Lidocaine 5% Patch [Lidoderm 5% Patch] 1 patch TOPICAL DAILY methocarbamoL [Robaxin] 500 mg PO BID Propranolol [Inderal] 40 mg PO BID Discontinued Insulin Glargine,Hum.rec.anlog [Lantus Solostar Pen] 20 unit SQ DAILY Discharge Medication List Atorvastatin [Lipitor] 40 mg PO HS 01/01/17 [History] Folic Acid 1 mg PO DAILY 01/01/17 [History] Magnesium Oxide [Mag-Ox] 250 mg PO DAILY 02/28/18 [History] Aspirin [Adult Low Dose Aspirin EC] 81 mg PO DAILY 05/29/18 [History] Cholecalciferol [Vitamin D3 (10 Mcg = 400 Iu)] 400 unit PO DAILY 05/29/18 [History] Lidocaine 5% Patch [Lidoderm 5% Patch] 1 patch TOPICAL DAILY 04/04/22 [History] Meloxicam [Mobic] 7.5 mg PO BID 04/04/22 [History] Multivitamins, Thera [Multivitamin (formulary)] 1 tab PO DAILY 04/04/22 [History] Propranolol [Inderal] 40 mg PO BID 04/04/22 [History] methocarbamoL [Robaxin] 500 mg PO BID 04/04/22 [History] Acetaminophen Tab [Tylenol] 650 mg PO Q6HR PRN tab 04/07/22 [Rx] Gabapentin [Neurontin] 100 mg PO HS #3 cap 04/07/22 [Rx] HYDROcodone/APAP 5-325MG [[place] 5-325] 1 each PO Q4HR PRN #18 tab 04/07/22 [Rx] INSULIN ASPART (NovoLOG) [NovoLOG (formulary)] 10 unit SQ AC-TID each 04/07/22 [Rx] Insulin Detemir (Levemir) [Levemir] 31 unit SQ HS each 04/07/22 [Rx] Lactulose [Cephulac] 20 gm PO DAILY PRN ml 04/07/22 [Rx] Loperamide [Imodium] 2 mg PO Q2HR PRN cap 04/07/22 [Rx] Mag Hydrox/Al Hydrox/Simeth [Maalox] 15 ml PO Q6HR PRN ml 04/07/22 [Rx] Follow up Appointment(s)/Referral(s): Cas Frey, PAC [PHYSICIAN FLOW NURSE] - 4 Weeks (Patient may follow-up with Cas Frey PA-C or Dr. Luis Miguel Evangelista at [facility] in 4 weeks following discharge. ) [facility],Clinic [Primary Care Provider] - 1-2 days Discharge/Stand Alone Forms: [facility] Instructions Discharge Disposition: HOME WITH HOME HEALTH SERVICES
== END 2022-04-10 16:30 | disposition home health service (06) | DRG 552 ==
LOC: EC 07:48 → 5NMEDONC 09:59 → OBSVTOIN 04-06 15:31
PROVIDERS: ADMIT Internal Medicine; ATTEND Internal Medicine
PROC: 3E0S3BZ Introduction of Anesthetic Agent into Epidural Space, Percutaneous Approach (ICD-10-PCS; principal; 2022-04-06 14:45)
PROC: B01B1ZZ Fluoroscopy of Spinal Cord using Low Osmolar Contrast (ICD-10-PCS; principal; 2022-04-06 14:45)
PROC: 3E0S33Z Introduction of Anti-inflammatory into Epidural Space, Percutaneous Approach (ICD-10-PCS; principal; 2022-04-06 14:45)
DX: M48.062 Spinal stenosis, lumbar region with neurogenic claudication (principal); M47.26 Other spondylosis with radiculopathy, lumbar region; E11.9 Type 2 diabetes mellitus without complications; F17.210 Nicotine dependence, cigarettes, uncomplicated; E78.5 Hyperlipidemia, unspecified; F20.9 Schizophrenia, unspecified; F32.A Depression, unspecified; M43.16 Spondylolisthesis, lumbar region; G89.29 Other chronic pain; I10 Essential (primary) hypertension; G25.0 Essential tremor; I25.10 Atherosclerotic heart disease of native coronary artery without angina pectoris; Z79.1 Long term (current) use of non-steroidal anti-inflammatories (NSAID); Z79.82 Long term (current) use of aspirin; Z79.899 Other long term (current) drug therapy; Z95.5 Presence of coronary angioplasty implant and graft; Z98.890 Other specified postprocedural states; Z87.19 Personal history of other diseases of the digestive system
CPT/HCPCS: 36415; 62323; 72131; 72148; 80053; 85025; 96374; 96375; 96376; 99285

== ENCOUNTER → 2022-05-29 | Outpatient (CLI) | payer MEDICARE, OTHER ==
[2022-05-29 09:48] VITALS: BP 148/78; PULSE 64; RESP 18; TEMP 98
--- NOTE | 2022-05-29 09:56 | P.PAINPG ---
PQRS Measure Charge Sheet Comment: HISTORY OF PRESENT ILLNESS: 82 yr old male w son at side presents today w severe and chronic LBP secondary to L2-L3, L4-L5 severe spinal stenosis, DDD, anterolisthesis and facet arthropathy for evaluation. Pt states his pain level is currently at 9 /10 in intensity, constant, achy in character and localized in the lower aspect of the lumbar spine w radiation of pain down the BLEs. He underwent a LESI L4-L5 in March, and experienced 60% pain relief in the lumbar spine. He no longer has burning pain but still has constant achy pain. Pain is provoked with standing for 3-4 minutes or laying supine. Palliated w medications (Robaxin, Mobic), lidoderm pathces, injections, heat, PT while an inpatient in March 2022, chiropractic treatments 6-7 sessions but provided no relief, home stretching regimen, use of walker for ambulation, repositioning and rest. PMH: CAD, NIDDM, GI Bleed, Hyperlipidemia, OA PSH: Cholecystectomy, Cardiac stent x 3 (last 1999), RUE surgery s/p childhood fracture, L eyelid surgery SH: Daily tobacco user, No ETOH abuse, No illicit drug use. Retired from the . FH: Mother- No reported history All: NKDA Meds: See list REVIEW OF ORGAN SYSTEMS: CONSTITUTIONAL: No fevers or chills. No recent weight loss. NEUROLOGICAL: + numbness and tingling along the distal extremities. No seizure disorders or headaches. MUSCULOSKELETAL: + pain PSYCHIATRIC: Denies current depression or suicidal t houghts. Physical Examinations : Constitutional : Cooperative , not in acute distress . Neurologic : Cranial nerve II to XII intact. No focal neurological deficits. Psychiatric : alert & oriented x 3. Matching mood & appropriate affect. Judgment & insight intact. Musculoskeletal : Cervical Spine Motor strength in the deltoid and biceps: Normal right side. Normal Left side Motor strength biceps and the wrist extensors: Normal right side . Normal left side Motor strength in the triceps muscle: Normal right side. Normal left side Deep tendon reflexes: Normal at the bi ceps. Normal at Brachioradialis. Normal at triceps Vertebral body tenderness to deep palpation over Cervical facet loading test: positive bilaterally Spurling test: positive bilaterally Neck distraction test: positive bilaterally [place] sign: positive bilaterally Lumbar spine Motor strength lower extremities ,thigh and legs 5/5 Right side , 5/5 Left side Deep tendon reflexes : Normal Knee Jerk. Normal Ankle Jerk Vertebral body tenderness over L4 Lumbar facet Loading Test: positive Right / positive Left Range of motion of the lumbar spine Flexion 30 degrees, extension 10 degrees Straight Leg Raise test: Left/ Right positive at degree Brigette test: positive right / positive left. Severe tenderness over the Sacroiliac joint on the Right / Left sides Gaenslen test: positive bilaterally Seated flexion test: positive bilaterally. Sacral spine : Severe tenderness over the Sacroiliac joint: right side / left side Range of motion: Flexion of the lumbar spine <60 degrees Range of motion: Extension of the lumbar spine <20 degrees Gaenslen's Test positive Marvel's Test positive Brigette test: positive right side / left side Thigh Thrust Test Sacral Thrust Test Imaging: MRI without contrast of the lumbar spine from 04/06/22 reviewed Assessment/ Plan : Lumbar DDD, Lumbar spinal stenosis, Lumbar facet arthropathy Recommendation of CHRISI L4-L5 #2. May need a series of injections, up to 3 within a 6 mo period, for optimal pain relief. Risks, benefits of procedure discussed and patient verbalized understanding. Denies aspirin or anti- coagulant use and admits to a medical history of diabetes. Protocol for discontinuation/ continuation of medications sandy procedure discussed. All questions answered. I have spent greater than 30 minutes on patient care today. Dr Cochran was available by phone for the evaluation of this patient. The time was used to review the medical records including relevant urine studies and Prescription history (MAPs), review of the available imaging, evaluation and examination of the patient, coordination of care with the medical staff and if applicable referring physicians, as well as creation of the medical record - Pain Location Bilateral Lower Back Non-Pharmacological Interventions: Chiropractic Treatment, Physical Therapy, S itting Pharmacological Interventions: Epidural, Medication, PRN Medication, Topical Medication PQRS Narrative: Smoking Status Current every day smoker Home Medications: Ambulatory Orders Atorvastatin [Lipitor] 40 mg PO HS 01/01/17 Folic Acid 1 mg PO DAILY 01/01/17 Magnesium Oxide [Mag-Ox] 250 mg PO DAILY 02/28/18 Aspirin [Adult Low Dose Aspirin EC] 81 mg PO DAILY 05/29/18 Cholecalciferol [Vitamin D3 (10 Mcg = 400 Iu)] 400 unit PO DAILY 05/29/18 Lidocaine 5% Patch [Lidoderm 5% Patch] 1 patch TOPICAL DAILY 04/04/22 Meloxicam [Mobic] 7.5 mg PO BID 04/04/22 Multivitamins, Thera [Multivitamin (formulary)] 1 tab PO DAILY 04/04/22 Propranolol [Inderal] 40 mg PO BID 04/04/22 methocarbamoL [Robaxin] 500 mg PO BID 04/04/22 Acetaminophen Tab [Tylenol] 650 mg PO Q6HR PRN tab 04/07/22 Gabapentin [Neurontin] 100 mg PO HS #3 cap 04/07/22 HYDROcodone/APAP 5-325MG [[place] 5-325] 1 each PO Q4HR PRN #18 tab 04/07/22 INSULIN ASPART (NovoLOG) [NovoLOG (formulary)] 10 unit SQ AC-TID each 04/07/22 Insulin Detemir (Levemir) [Levemir] 31 unit SQ HS each 04/07/22 Lactulose [Cephulac] 20 gm PO DAILY PRN ml 04/07/22 Loperamide [Imodium] 2 mg PO Q2HR PRN cap 04/07/22 Mag Hydrox/Al Hydrox/Simeth [Maalox] 15 ml PO Q6HR PRN ml 04/07/22 Controlled Substance Measures - Controlled Substance Measures Is patient prescribed a controlled substance at discharge?: No
== END ==
LOC: PNWHC3 08:58
PROVIDERS: ATTEND Specialist
DX: M48.061 Spinal stenosis, lumbar region without neurogenic claudication (principal); M47.816 Spondylosis without myelopathy or radiculopathy, lumbar region; I25.10 Atherosclerotic heart disease of native coronary artery without angina pectoris; E11.9 Type 2 diabetes mellitus without complications; E78.5 Hyperlipidemia, unspecified; M19.90 Unspecified osteoarthritis, unspecified site; F17.200 Nicotine dependence, unspecified, uncomplicated
CPT/HCPCS: 99211

== ENCOUNTER 2022-07-04 07:53 | Day surgery (SDC) | payer OTHER ==
[2022-06-30 15:58] VITALS: BMI 28.2
[~2022-07-04 07:53] MED LIST changes: -LIDOCAINE 1% 20 ML VIAL (10MG/ML) FOR IV START INTRADERMA PRN
[2022-07-04 09:25] VITALS: RESP 16; TEMP 97.3
[2022-07-04] MEDS ORDERED: LACTATED RINGERS 1,000 ML IV ONE (09:29)
[2022-07-04 09:35] LABS: Glucose,Whole Blood 120 mg/dL (70-110)
[2022-07-04] MEDS ORDERED: fentaNYL (PF) 50 MCG/ML 2 ML AMP ONE (09:55)
[2022-07-04] MEDS ORDERED: MIDAZOLAM 2 MG/2 ML VIAL ONE (09:55)
[2022-07-04] MEDS ORDERED: IOPAMIDOL M200 10 ML VIAL ONE (09:55)
[2022-07-04] MEDS ORDERED: methylPREDNISolone ACETATE 40 MG/ML 1 ML VIAL ONE (09:55)
--- NOTE | 2022-07-04 10:10 | P.PCN ---
Date of Procedure: 07/04/22 Description of Procedure: Procedure: 1. L4-L5 Epidural steroid injection under fluoroscopic guidance # 2/3 , 2. Lumbar epidurogram PREOPERATIVE DIAGNOSIS: Lumbar degenerative disc disease, and Lumbar radiculopathy. POSTOPERATIVE DIAGNOSIS: Lumbar degenerative disc disease, and Lumbar radiculopathy. SURGEON: Bradley Oreilly ANESTHESIA: Local with 1% lidocaine, and IV sedation : Midazolam 1 mg, and fentanyl 50 g Sedation supervision start time : 1000 sedation Supervision end time: 1008 EBL: None. Specimen removed: None Fluoroscopic image: saved to electronic medical records PROCEDURE INDICATION: The patient had history of Lumbar degenerative disc disease and Lumbar radiculopathy. Failed to conservative therapy. Presented for epidural steroid injection. PROCEDURE DESCRIPTION: The patient was seen and identified in the preoperative area. Risks, benefits, complications, and alternatives were discussed with the patient. The patient agreed to proceed with the procedure and signed the consent. IV was started, and vital signs were stable. Patient was taken to the procedure area, and time out was completed. The patient was placed in the prone position on procedure table and a pillow was placed under the abdomen to reduce lumbar lordosis. The lumbosacral area was prepped and draped in the usual sterile fashion. Critical pause was taken. Vital signs were closely monitored during the procedure. Using anterior-posterior fluoroscopy, the L4-L5 interlaminar space was identified, and skin and deeper tissues were localized with 1% lidocaine. Using anterior-posterior fluoroscopy, lateral fluoroscopy, and [id number] technique, a 20 gauge 3.5 Tuohy epidural needle entered the epidural space. After negative aspiration of CSF and blood with no paresthesias, 2 ml of [id number] contrast dye was injected and an excellent epidurogram was seen. Again after negative aspiration of CSF and blood with no paresthesias, 7 mL of block solution was injected into the epidural space. Block solution contained 40 mg of Depo-Medrol, and 6 mL of preservative-free normal saline. Needle was withdrawn intact, skin was cleansed, and bandages were applied. COMPLICATIONS: None. DISPOSITION / PLANS: The patient was placed in a supine position and transferred to the recovery area in a stable condition for observation. Patient was discharged from the recovery room after meeting discharge criteria. Home discharge instructions given to the patient by the staff. The patient was reexamined prior to discharge. The patient will schedule a follow up in the clinic in 4 weeks.
[2022-07-04] MEDS ORDERED: IV FLUID CONTINUATION 1,000 ML IV ONE (10:17)
[2022-07-04 10:35] VITALS: BP 127/76; PULSE 67
--- NOTE | 2022-07-04 10:54 | FL ---
Fluoroscopy HISTORY: Pain 9 seconds fluoroscopy time supplied to the referring clinician. 2 intraoperative C-arm images docume nt the procedure. See dictated report from anesthesia.
== END 2022-07-04 11:15 | disposition home or self-care (01) ==
LOC: ORPAIN 07:53
DX: M51.16 Intervertebral disc disorders with radiculopathy, lumbar region (principal); M47.26 Other spondylosis with radiculopathy, lumbar region; M54.9 Dorsalgia, unspecified; I10 Essential (primary) hypertension; E11.9 Type 2 diabetes mellitus without complications; F32.9 Major depressive disorder, single episode, unspecified; I25.10 Atherosclerotic heart disease of native coronary artery without angina pectoris; K57.92 Diverticulitis of intestine, part unspecified, without perforation or abscess without bleeding; E78.00 Pure hypercholesterolemia, unspecified; Z90.49 Acquired absence of other specified parts of digestive tract; Z98.890 Other specified postprocedural states
CPT/HCPCS: 62323; J2250; J1030; J3010; Q9966

== ENCOUNTER 2022-07-17 16:57 | Observation (INO) | payer OTHER ==
[2022-07-17] MEDS ORDERED: KETOROLAC 15 MG/ML 1 ML VIAL IVP STA (19:50)
[2022-07-17] MEDS ORDERED: HYDROcodone/APAP 5-325MG 1 EACH TAB PO STA (19:50)
--- NOTE | 2022-07-17 20:27 | ED ---
Back Pain [facility] - General Chief Complaint: Back Pain/Injury Stated Complaint: leg & back pain Time Seen by Provider: 07/17/22 19:31 Source: patient, family Limitations: no limitations - History of Present Illness Initial Comments: This 82-year-old male presents complaining of some low back pain. This is primarily to his right lower back. It radiates down his right leg. He states that it is very severe. He apparently is been following up with his physician for this. He is previously seen a spinal surgeon. He was told that he may need surgery but they're trying epidurals first. He apparently had an epidural this past week with limited relief. He then went to physical therapy today and the pain became excruciating this afternoon. He states that he tried to walk and fell to the ground. He denies any injuries. There is no head injury or neck pain. He denies any loss of bowel or bladder. He denies any traumatic injuries to his back all today. He is unable to ambulate currently. He has been admitted to the hospital on 10 previous for similar. No other complaints or modifying factors. He is only on multiple back and a muscle relaxer for pain at home. - Related Data Home Medications Medication Instructions Recorded Confirmed Atorvastatin [Lipitor] 40 mg PO HS 01/01/17 06/30/22 Aspirin [Adult Low Dose Aspirin EC] 81 mg PO DAILY 05/29/18 07/04/22 Cholecalciferol [Vitamin D3 (10 125 mcg PO DAILY 05/29/18 06/30/22 Mcg = 400 Iu)] Lidocaine 5% Patch [Lidoderm 5% 1 patch TOPICAL DAILY 04/04/22 06/30/22 Patch] Propranolol [Inderal] 40 mg PO BID 04/04/22 07/04/22 methocarbamoL [Robaxin] 500 mg PO BID 04/04/22 06/30/22 metFORMIN HCL 1,000 mg PO BID 06/30/22 06/30/22 Insulin Glargine,Hum.rec.anlog 20 unit SQ DAILY 07/04/22 07/04/22 [Insulin Glargine Solostar] Previous Rx's Medication Instructions Recorded HYDROcodone/APAP 5-325MG [[place] 1 each PO Q4HR PRN #18 tab 04/07/22 5-325] Allergies Allergy/AdvReac Type Severity Reaction Status Date / Time No Known Allergies Allergy Verified 07/17/22 17:05 Review of Systems ROS Statement: Those systems with pertinent positive or pertinent negative responses have been documented in the HPI. ROS Other: All systems not noted in ROS Statement are negative. Past Medical History Past Medical History: Coronary Artery Disease (CAD), Diabetes Mellitus, GI Bleed, Hyperlipidemia, Osteoarthritis (OA) Additional Past Medical History / Comment(s): ESSENTIAL TREMORS, GI bleed 10/2017, diverticulitis, gallstones, some loss of use of rt arm, herniated disk, spinal stenosis History of Any Multi-Drug Resistant Organisms: None Reported Past Surgical History: Cholecystectomy Additional Past Surgical History / Comment(s): 3 cardiac stents, surgery on rt arm x 3 -fx as child, left eyelid surgery Past Anesthesia/Blood Transfusion Reactions: No Reported Reaction Date of Last Stent Placement:: 1999 Past Psychological History: Anxiety, Depression, Panic Disorder, Schizophrenia Smoking Status: Current every day smoker Past Alcohol Use History: None Reported Past Drug Use History: None Reported - Past Family History Mother Family Medical History: No Reported History General Exam - General Exam Comments Initial Comments: GENERAL: The patient is well nourished and well hydrated. VITAL SIGNS: Heart rate, blood pressure, respiratory rate reviewed as recorded in nurse's notes. EYES: Pupils are round and reactive. Extraocular movements are intact. No conjunctival / lid redness or swelling. ENT: No external evidence of injury, swelling, or ecchymosis. Airway is patent. Throat is clear. NECK: Nontender. No swelling or evidence of injury. No subcutaneous emphysema. Trachea is midline. No thyroid mass. HEART: Regular rate and rhythm. Good peripheral pulses. LUNGS/CHEST: Breath sounds clear and equal bilaterally. No rales, rhonchi, or wheezes. No ecchymosis, subcutaneous emphysema, or tenderness. ABDOMEN: Abdomen soft without tenderness. No palpable masses or organomegaly. No peritoneal signs. No abdominal wall swelling or ecchymosis. EXTREMITIES: No extremity tenderness. Normal muscle tone and function. There is significant tenderness noted to the right paralumbar musculature. There is no direct tenderness upon palpation of the lower extremities. There is no swelling identified. NEUROLOGIC: Sensation is grossly intact. Cranial nerve exam reveals face is symmetrical, tongue is midline, speech is clear. SKIN: No abrasions or ecchymosis is noted. No induration or masses noted. PSYCHIATRIC: Alert and oriented. Appropriate behavior and judgment. Limitations: no limitations Course Vital Signs 07/17/22 17:02 Temperature 97.7 F Pulse Rate 68 Respiratory 18 Rate Blood Pressure 139/82 O2 Sat by Pulse 97 Oximetry Medical Decision Making - Medical Decision Making The patient was seen and examined. Laboratory is ordered. Old records are reviewed. The patient initially is given [place] as well as Toradol for his pain. The patient has severe pain to the point where he cannot ambulate. He states that he cannot lay down flat. He does not feel comfortable being discharged home. Patient and son requests admission to the hospital for further treatment. Additional pain medications will be ordered. Screening labs are ordered. Case is discussed with Dr. Vuong from internal medicine and he is agreeable with admission with orthopedic spine surgery to consult. It appears as though the patient has failed conservative treatment at this time and may need more aggressive measures in regards to his lumbar spinal conditions. Disposition Clinical Impression: Spinal stenosis, Chronic low back pain, Acute low back pain, Lumbar radiculopathy, Inability to walk, Fall from standing Disposition: ADMITTED IP TO THIS [facility] Condition: Fair Referrals: [facility],Clinic [Primary Care Provider] - 1-2 days Time of Disposition: 20:38 Decision Date: 07/17/22 Decision Time: 20:38
[2022-07-17] MEDS ORDERED: HYDROcodone/APAP 5-325MG 1 EACH TAB PO PRN (21:14)
[2022-07-17] MEDS ORDERED: MORPHINE SULFATE 2 MG/ML SYRINGE IVP STA (21:14)
[2022-07-17] MEDS ORDERED: ONDANSETRON 4 MG/2 ML VIAL IVP PRN (21:14)
[2022-07-17] MEDS ORDERED: NALOXONE 0.4 MG/ML 1 ML VIAL IV PRN (21:14)
[2022-07-17] MEDS ORDERED: ACETAMINOPHEN TAB 325 MG TAB PO PRN (21:14)
[2022-07-17 22:48] LABS: ALT 49 U/L (4-49); AST 40 U/L (17-59); African American GFR (CKD) >90 (>60 ml/min/1.73 sqM); Albumin 4.3 g/dL (3.5-5.0); Alkaline Phosphatase 51 U/L (38-126); Anion Gap 12 mmol/L; Blood Urea Nitrogen 26 mg/dL (9-20); Calcium 9.5 mg/dL (8.4-10.2); Carbon Dioxide 22 mmol/L (22-30); Chloride 103 mmol/L (98-107); Glucose 121 mg/dL (74-99); Non-African American GFR(CKD) 82 (>60 ml/min/1.73 sqM); Potassium 4.2 mmol/L (3.5-5.1); Sodium 137 mmol/L (137-145); Total Bilirubin 0.8 mg/dL (0.2-1.3); Total Protein 6.4 g/dL (6.3-8.2)
[2022-07-17 23:01] LABS: Basophils % (A) 1 %; Eosinophils # (A) 0.2 k/uL (0-0.7); Eosinophils % (A) 3 %; HGB 13.7 gm/dL (13.0-17.5); Lymphocytes # (A) 1.7 k/uL (1.0-4.8); Lymphocytes % (A) 23 %; MCH 30.4 pg (25.0-35.0); MCHC 32.7 g/dL (31.0-37.0); Mean Platelet Volume 7.3; Monocytes # (A) 0.5 k/uL (0-1.0); Monocytes % (A) 6 %; Neutrophils % (A) 66 %; Platelet Count 180 k/uL (150-450); RBC 4.52 m/uL (4.30-5.90); RDW 14.1 % (11.5-15.5); WBC 7.6 k/uL (3.8-10.6)
[2022-07-17 23:03] LABS: Partial Thromboplastin Time 25.2 sec (22.0-30.0); Prothrombin Time 11.2 sec (9.0-12.0)
--- NOTE | 2022-07-18 03:27 | P.HPIM ---
History of Present Illness H&P Date: 07/17/22 Chief Complaint: Low back pain 82-year-old male with diabetes mellitus, coronary artery disease status post stents Patient comes into the hospital due to excruciating low back pain with radiculopathy to the lower extremities. Patient has been having low back pain for a while now he's been following up outpatient with spine surgeon he elected to go with conservative methods initially he's been receiving epidurals last one was a few days ago followed by physical therapy he was going to physical therapy today when suddenly pain became excruciating a she sustained a fall without head injury for which she decided to come into the hospital for pain control. Patient has been told before that he would require surgery however he try to he wanted to try it the conservative pathway first and attempt for surgery. He does report occasional urinary and stool incontinence and sometimes urinary retention. Otherwise he denies any fevers or chills denies any chest pain or tr ouble breathing denies any abdominal pain nausea vomiting denies any GI bleeding. Currently feels comfortable reports pain has been controlled and resolved with morphine. Blood work in the ED overall unremarkable Patient admits to tobacco smoking denies any illicit drugs or alcohol. Review of Systems Pertinent positives as noted in HPI. All other systems were reviewed and are negative Past Medical History Past Medical History: Coronary Artery Disease (CAD), Diabetes Mellitus, GI Bleed, Hyperlipidemia, Osteoarthritis (OA) Additional Past Medical History / Comment(s): ESSENTIAL TREMORS, GI bleed 10/2017, diverticulitis, gallstones, some loss of use of rt arm, herniated disk, spinal stenosis History of Any Multi-Drug Resistant Organisms: None Reported Past Surgical History: Cholecystectomy Additional Past Surgical History / Comment(s): 3 cardiac stents, surgery on rt arm x 3 -fx as child, left eyelid surgery Past Anesthesia/Blood Transfusion Reactions: No Reported Reaction Date of Last Stent Placement:: 1999 Past Psychological History: Anxiety, Depression, Panic Disorder, Schizophrenia Smoking Status: Current every day smoker Past Alcohol Use History: None Reported Past Drug Use History: None Reported - Past Family History Mother Family Medical History: No Reported History family Family Medical History: Coronary Artery Disease (CAD) Medications and Allergies Home Medications Medication Instructions Recorded Confirmed Type Atorvastatin [Lipitor] 40 mg PO HS 01/01/17 07/17/22 History Aspirin [Adult Low Dose Aspirin EC] 81 mg PO DAILY 05/29/18 07/17/22 History Cholecalciferol [Vitamin D3 (10 400 unit PO DAILY 05/29/18 07/17/22 History Mcg = 400 Iu)] Lidocaine 5% Patch [Lidoderm 5% 1 patch TOPICAL DAILY PRN 04/04/22 07/17/22 History Patch] Propranolol [Inderal] 40 mg PO BID 04/04/22 07/17/22 History methocarbamoL [Robaxin] 500 mg PO BID 04/04/22 07/17/22 History metFORMIN HCL 1,000 mg PO BID 06/30/22 07/17/22 History Insulin Glargine,Hum.rec.anlog 20 unit SQ DAILY@1200 07/04/22 07/17/22 History [Insulin Glargine Solostar] DULoxetine HCL [Cymbalta] 20 mg PO DIRECTED 07/17/22 07/17/22 History Folic Acid 1 mg PO DAILY 07/17/22 07/17/22 History Magnesium Oxide [Mag-Ox] 250 mg PO DAILY 07/17/22 07/17/22 History Meloxicam [Mobic] 7.5 mg PO DIRECTED 07/17/22 07/17/22 History Allergies Allergy/AdvReac Type Severity Reaction Status Date / Time No Known Allergies Allergy Verified 07/17/22 22:35 Physical Exam Vitals: Vital Signs Temp Pulse Resp BP Pulse Ox 07/18/22 00:56 52 L 16 131/83 98 07/17/22 21:05 47 L 16 113/71 98 07/17/22 17:02 97.7 F 68 18 139/82 97 Intake and Output 07/17/22 07/17/22 07/18/22 14:59 22:59 06:59 Other: Weight 104.326 kg Constitutional: No acute distress, conversant, pleasant Eyes: Anicteric sclerae, moist conjunctiva, Pupils equal round reactive to light ENMT: NC/AT Oropharynx clear, no erythema, or exudates Neck: Supple, no masses, or JVD No carotid bruits No thyromegaly Lungs: Clear to auscultation Clear to percussion Normal respiratory effort, no accessory muscle use Cardiovascular: Heart regular in rate and rhythm, No murmurs, gallops, or rubs No peripheral edema Abdominal: Soft Nontender, no guarding, rebound or rigidity Abdomen moving with respiration Normoactive bowel sounds No hepatomegaly, No splenomegaly No palpable mass No abdominal wall hernia noted No skin changes over the spine, no tenderness to palpation of the back or spine. Skin: Normal temperature, tone, texture, turgor No induration No subcutaneous nodules No rash, lesions No ulcers Extremities: Straight leg rising is negative bilaterally No digital cyanosis No clubbing Pedal pulses intact and symmetrical Radial pulses intact and symmetrical No calf tenderness Psychiatric: Alert and oriented to person, place and time Appropriate affect fair judgement Neuro Muscles Strength 5/5 in all 4 extremities no appreciated weakness over the lower extremities Sensation to light touch slightly decreased over bilateral legs Cranial nerves II-XII grossly intact Lymphatics: no palpable cervical or supraclavicular , or inguinal lymph nodes Results CBC & Chem 7: 07/17/22 22:20 07/17/22 22:20 Labs: Abnormal Lab Results - Last 24 Hours (Table) 07/17/22 Range/Units 22:20 BUN 26 H (9-20) mg/dL Glucose 121 H (74-99) mg/dL Assessment and Plan Assessment: Intractable low back pain with history of arthritis of the lumbar spine with occasional radiculopathy lower extremities Pain control with opiates Consultation to orthospine Neurochecks every 4 hours Check bladder scans monitor for urinary retention Fall precautions PT consultation Chronic conditions Diabetes mellitus insulin sliding scale, resume home insulin regimen History of CAD status post stents resume cardiac meds, aspirin, statin, beta blockers DVT prophylaxis heparin subcu 3 times a day Full code
[2022-07-18] MEDS ORDERED: KETOROLAC 15 MG/ML 1 ML VIAL IVP PRN (03:28)
[2022-07-18] MEDS: MORPHINE SULFATE 4 MG/ML SYRINGE IV PRN ×4 (06:00→23:29)
[2022-07-18] MEDS: PANTOPRAZOLE 40 MG TABLET PO SCH (08:46)
[2022-07-18] MEDS ORDERED: ASPIRIN 81 MG PO SCH (09:00)
[2022-07-18] MEDS ORDERED: ENOXAPARIN 40 MG/0.4 ML SYRINGE SQ SCH (09:00)
--- NOTE | 2022-07-18 09:06 | P.CNOR ---
History of Present Illness - [facility] Consult date: 07/18/22 Requesting physician: Joaquin Call Consult reason: low back pain, other (Right lower extremity numbness and pain) History of present illness: Patient is a very pleasant 82-year-old male who is known to our office who is seen and examined at the bedside for follow-up evaluation of his lumbar spine. He has been seen previously in the hospital and also in the outpatient setting. He presented lumbar CT imaging as well as lumbar MRI imaging. He is known to have severe stenosis at L2-3, L3-4, and L4-5. He has been working to conservative treatment with physical therapy and pain management. He states he had been working through physical therapy exercises for approximate 6 weeks benefit. He also had an injection with pain management that had been doing well until recently. He states since the injection has worn off he's had increased pain and numbness radiating from his lumbar spine down the right anterior lateral thigh. He states he does not have specific weakness in his bilateral lower extremities. He feels his lower extremities feel strong. He does state, however, when the pain is severe he feels weakness due to pain with his right lower extremity. His pain became severe and he presented to the emergency department for further evaluation. She did sustain a fall without injury due to his pain. He is known to have chronic low back pain. The possibility of surgical intervention was discussed previously. Patient states at the bedside he is thought about this significantly. He states he would like to try another injection with pain management to see if his symptoms can be better controlled prior to discussing proceeding for surgical intervention. His previous injection was by pain management located here at [facility]. He does admit to difficulty with prolonged ambulation. Patient's other medical diagnoses include coronary artery disease, diabetes mellitus, history of GI bleed, and hyperlipidemia. Medicine is also present at the bedside. Patient denies fever or chills. He does not have an elevated WBC. Past Medical History Past Medical History: Coronary Artery Disease (CAD), Diabetes Mellitus, GI Bleed, Hyperlipidemia, Osteoarthritis (OA) Additional Past Medical History / Comment(s): ESSENTIAL TREMORS, GI bleed 10/2017, diverticulitis, gallstones, some loss of use of rt arm, herniated disk, spinal stenosis History of Any Multi-Drug Resistant Organisms: None Reported Past Surgical History: Cholecystectomy Additional Past Surgical History / Comment(s): 3 cardiac stents, surgery on rt arm x 3 -fx as child, left eyelid surgery Past Anesthesia/Blood Transfusion Reactions: No Reported Reaction Date of Last Stent Placement:: 1999 Past Psychological History: Anxiety, Depression, Panic Disorder, Schizophrenia Smoking Status: Current every day smoker Past Alcohol Use History: None Reported Past Drug Use History: None Reported - Past Family History Mother Family Medical History: No Reported History family Family Medical History: Coronary Artery Disease (CAD) Medications and Allergies Home Medications Medication Instructions Recorded Confirmed Type Atorvastatin [Lipitor] 40 mg PO HS 01/01/17 07/17/22 History Aspirin [Adult Low Dose Aspirin EC] 81 mg PO DAILY 05/29/18 07/17/22 History Cholecalciferol [Vitamin D3 (10 400 unit PO DAILY 05/29/18 07/17/22 History Mcg = 400 Iu)] Lidocaine 5% Patch [Lidoderm 5% 1 patch TOPICAL DAILY PRN 04/04/22 07/17/22 History Patch] Propranolol [Inderal] 40 mg PO BID 04/04/22 07/17/22 History methocarbamoL [Robaxin] 500 mg PO BID 04/04/22 07/17/22 History metFORMIN HCL 1,000 mg PO BID 06/30/22 07/17/22 History Insulin Glargine,Hum.rec.anlog 20 unit SQ DAILY@1200 07/04/22 07/17/22 History [Insulin Glargine Solostar] DULoxetine HCL [Cymbalta] 20 mg PO DIRECTED 07/17/22 07/17/22 History Folic Acid 1 mg PO DAILY 07/17/22 07/17/22 History Magnesium Oxide [Mag-Ox] 250 mg PO DAILY 07/17/22 07/17/22 History Meloxicam [Mobic] 7.5 mg PO DIRECTED 07/17/22 07/17/22 History Allergies Allergy/AdvReac Type Severity Reaction Status Date / Time No Known Allergies Allergy Verified 07/17/22 22:35 Physical Examination Physical exam: Patient is awake, alert, and oriented 3 Vital signs stable Good chest excursion with deep inspiration and expiration Examination of lumbar spine reveals skin is intact with no abrasions, lacerations, or bruises; no erythema, purulence or signs of infection Patient is able to roll over in bed with assistance No significant pain with palpation over the lumbosacral spine. Dorsiflexion, plantarflexion, and extensor hallucis longus positive sustained bilaterally No difficulty with full active range of motion of the left lower extremity Patient feel some pain with performing hip flexion on the right No lower extremity hyperreflexia bilaterally Negative Lasegue's test bilaterally No signs or symptoms of DVT; no calf pain No pain with internal and external rotation of the hips bilaterally Neurovascularly intact Results Pertinent studies: MRI of the lumbar spine taken on 04/06/2022: T12 chronic appearing superior endplate compression fracture; L1-2 degenerative disc disease, facet arthropat hy, and disc bulging with foraminal encroachment; L2-3 grade 1 spondylolisthesis, advanced facet arthropathy, broad-based disc herniation, and ligamentum flavum hypertrophy resulting in severe central canal stenosis and moderate bilateral neural foraminal stenosis; L3-4 severe degenerative disc dise ase, broad-based disc protrusion, advanced facet arthropathy, and ligament flavum hypertrophy resulting in severe central canal stenosis and moderate to severe bilateral neural foraminal stenosis with discogenic marrow changes; L4-5 degenerative disc disease, advanced facet arthropathy, broad-based disc protrusion, and ligament flavum hypertrophy resulting in severe central canal stenosis and bilateral neural foraminal stenosis; L5-S1 degenerative disc disease, facet arthropathy, and lateral disc bulging resulting in mild right and moderate left neural foraminal encroachment with anterior osteophytic spurring and discogenic marrow change; Increased signal on today's exam at the L4-5 disc space which may be discogenic or could obtain contrast imaging of concern for discitis CT of the lumbar spine taken on 04/04/2022: L2-3 spondylolisthesis, facet arthropathy, and disc protrusion resulting in central canal stenosis and bilateral neural foraminal stenosis; L3-4 asymmetric degenerative disc disease, severe degenerative disc disease, endplate change, facet arthropathy, and disc protrusion resulting in central canal stenosis and neural foraminal stenosis; L4-5 large left facet arthropathy with left neural foraminal stenosis and central stenosis - Labs Labs: Abnormal Lab Results - Last 24 Hours (Table) 07/17/22 Range/Units 22:20 BUN 26 H (9-20) mg/dL Glucose 121 H (74-99) mg/dL H & H 07/17/22 Range/Units 22:20 Hgb 13.7 (13.0-17.5) gm/dL Hct 42.0 (39.0-53.0) % Coagulation 07/17/22 Range/Units 22:20 INR 1.0 (<1.2) Result Diagrams: 07/17/22 22:20 07/17/22 22:20 Assessment and Plan Assessment: Assessment: Exacerbation of chronic low back pain Neurogenic claudication Right lower extremity pain and numbness over the right anterior lateral thigh Difficulty ambulation due to pain and numbness L2-3 spondylolisthesis L2-3, L3-4, and L4-5 severe spinal stenosis and neural foraminal stenosis Lumbar facet arthropathy Lumbar stenosis Lumbar degenerative disc disease Coronary artery disease Diabetes mellitus History of GI bleed Hyperlipidemia (1) Acute exacerbation of chronic low back pain Current Visit: Yes Status: Acute Code(s): M54.50 - LOW BACK PAIN, UNSPECIFIED; G89.29 - OTHER CHRONIC PAIN SNOMED Code(s): 168795868 (2) Lumbar radiculopathy Current Visit: Yes Status: Acute Code(s): M54.16 - RADICULOPATHY, LUMBAR REGION SNOMED Code(s): 277732126 (3) Unable to ambulate Current Visit: Yes Status: Acute Code(s): R26.2 - DIFFICULTY IN WALKING, NOT ELSEWHERE CLASSIFIED SNOMED Code(s): 838577319 (4) Coronary artery disease Current Visit: No Status: Acute Code(s): I25.10 - ATHSCL HEART DISEASE OF [place] CORONARY ARTERY W/O ANG PCTRS SNOMED Code(s): 48362738 (5) Diabetes mellitus Current Visit: No Status: Acute Code(s): E11.9 - TYPE 2 DIABETES MELLITUS WITHOUT COMPLICATIONS SNOMED Code(s): 26518117 (6) History of GI bleed Current Visit: No Status: Acute Code(s): Z87.19 - PERSONAL HISTORY OF OTHER DISEASES OF THE DIGESTIVE SYSTEM SNOMED Code(s): 191019675 (7) Hyperlipidemia Current Visit: No Status: Acute Code(s): E78.5 - HYPERLIPIDEMIA, UNSPECIFIED SNOMED Code(s): 44603418 (8) Lower extremity numbness Current Visit: No Status: Acute Code(s): R20.0 - ANESTHESIA OF SKIN SNOMED Code(s): 555446902 (9) Lumbar degenerative disc disease Current Visit: No Status: Acute Code(s): M51.36 - OTHER INTERVERTEBRAL DISC DEGENERATION, LUMBAR REGION SNOMED Code(s): 22666526 (10) Lumbar facet arthropathy Current Visit: No Status: Acute Code(s): M47.816 - SPONDYLOSIS W/O MYELOPATHY OR RADICULOPATHY, LUMBAR REGION SNOMED Code(s): 577339315 (11) Lumbar stenosis with neurogenic claudication Current Visit: No Status: Acute Code(s): M48.062 - SPINAL STENOSIS, LUMBAR REGION WITH NEUROGENIC CLAUDICATION SNOMED Code(s): 42909568 (12) Spondylolisthesis, lumbar region Current Visit: No Status: Acute Code(s): M43.16 - SPONDYLOLISTHESIS, LUMBAR REGION SNOMED Code(s): 512401054521086 Plan: Plan: 1. Patient is known to have chronic low back pain and does express lower e xtremity radiculopathy. Currently he has had exacerbation of his chronic low back pain was significant pain and numbness radiating down the right anterior lateral thigh. He recently sustained a fall due to his pain. He is known have difficulty with prolonged ambulation. He has been working to conservative treatment options including physical therapy and pain management. He thought his symptoms had been well-controlled. He has been working through physical therapy exercises over the past 6 weeks. He did undergo an injection with pain management which was beneficial for a few weeks. He is known have significant degenerative changes in his lumbar spine including L2-3 spondylolisthesis, L2-3, L3-4, and L4-5 severe spinal stenosis and neural foraminal stenosis, lumbar facet arthropathy, and lumbar degenerative disc disease. He continues to deny specific lower extremity weakness but has had difficulty with ambulation and mobility due to his back pain and lower extremity numbness. We did discuss his based on his symptoms and his imaging that correlates well with his symptoms, he would be a candidate for surgical intervention if he were to fail conservative treatment options. We had previously discussed the most likely postsurgical intervention would be an L2-3, L3-4, and L4-5 minimally invasive posterior lateral decompression and fusion with transforaminal lumbar interbody fusion or an L2-3, L3-4, and L4-5 laminectomy and decompression. Patient states even though his symptoms are significantly currently, given his benefit with physical therapy and pain management and the outpatient setting, he would like further evaluation with pain management during his admission to the hospital and like to discuss proceeding forward with another injection. He does not currently wish to schedule or proceed forward with surgical intervention in his lumbar spine. He states he would be interested in follow-up evaluation outpatient setting following a further injection with pain management and to discuss the possibility surgical intervention at that time if he is feeling con servative treatment options. At this time, patient will be clear for discharge from an orthopedic spine standpoint. We will plan to have him follow up in approximately 2-3 weeks with Cas Frey PA-C or Dr. Luis Miguel Evangelista at [facility] for further evaluation and to discuss further treatment options depending how he is progressing with conservative treatment. This plan of care was discussed with medicine who is present at the bedside. 2. Consultation has been placed with pain management for follow-up evaluation and to discuss further treatment options including the possibility of further injections. 3. Patient will continue to be seen and examined by medicine for his other medical diagnoses Time with Patient: Greater than 30 (Including obtaining history, physical examination, reviewing of imaging, and dictation.)
[2022-07-18] MEDS: methocarbamoL 500 MG TAB PO SCH ×2 (09:23→20:27)
[2022-07-18] MEDS: PROPRANOLOL 40 MG TAB PO SCH ×2 (09:24→20:27)
[2022-07-18] MEDS: INSULIN DETEMIR (LEVEMIR) 100 UNIT/ML SYR SQ SCH (12:29)
[2022-07-18] MEDS ORDERED: DEXTROSE 50% SYRINGE 50 ML IVP PRN ×2 (15:36)
--- NOTE | 2022-07-18 15:50 | P.PN ---
Subjective Progress Note Date: 07/18/22 Hospital course: Patient is a very pleasant 82-year-old male with a past medical history of CAD status post stents, hypertension, hyperlipidemia, diabetes mellitus, spinal stenosis with herniated disks and chronic back pain. He presented to the emergency department on 07/17/22 with a chief complaint of uncontrolled lower back pain with radiculopathy of right lower extremities. Patient is currently under treatment by pain management clinic where he follows up outpatient for epidural injections and physical therapy after electing to undergo conservative treatment of his L2 through L5 severe spinal stenosis and disc herniation. Patient reported that up until most recent injection he has been receiving moderate pain control through epidural injections. Patient states the last epidural injection he received was on 07/04/22 and patient states it is no longer controlling back pain. Patient reports severe pain to lower spine radiating down right leg with numbness and tingling. He denies having any changes in his previously known occasional episodes of urinary or bowel incontinence. Patient reports due to the severe pain he is having difficulties ambulating. Patient was admitted to observation under our services with consultation to orthospine and pain management. Physical exam: Patient seen and fully evaluated at the bedside this morning. He reports continued lower back pain/lumbar region with sharp shooting pains, hot tingling sensations, and numbness radiating down the right lateral leg. Movement and strength intact at this time. Patient reports urinating without any difficulties and denies having any episodes of incontinence since hospitalization. Patient was seen by orthospine surgery recommending consult to pain management for epidural injection and would like to discuss the possibility of surgical intervention with patient In office next week. Vital signs reviewed and stable. General: Nontoxic, no distress and appears stated age. Derm: Skin warm and dry, normal coloration for ethnicity. Head: Atraumatic, normocephalic and symmetric. Eyes: EOMs intact, no lid lag, and anicteric sclera Mouth: no lip lesions, mucus membranes moist Cardiovascular: regular rate and rhythm with normal S1S2 systolic murmur, positive posterior tibial pulses bilaterally, and cap refill < 2 seconds. Lungs: Respirations even, regular, and unlabored on room air. Lungs CTA bilaterally, no rhonchi, no rales, no wheezing, and no accessory muscle usage. Abdominal: soft, nontender to palpation, no guarding, no appreciable organomegaly Ext: ROM intact. No gross muscle atrophy, no edema, no contractures. Movement and sensation intact. Neuro: Speech clear, face symmetrical and CN II-XII grossly intact with no noted focal neuro deficits Psych: Alert and oriented to person, place, time, and situation. Appropriate and pleasant affect. Assessment and Plan of Care: Intractable lower back pain with radiculopathy to right lower extremity Severe spinal stenosis L2 through L5 -Pain management and symptomatic care. -Orthospine consulted -Anesthesia/pain management consulted. -Fall precautions. -PT/OT Insulin-dependent diabetes mellitus -Hold Glucophage and continue long-acting insulin glargine and place patient on glycemic protocol with NovoLog sliding scale. Hypertension -Continue daily medication regimen with propranolol. Hyperlipidemia -Continue daily medication regimen with atorvastatin. History of CAD status post stenting -Aspirin to be held per recommendations of anesthesiologist planing for epidural injection tomorrow morning. CODE STATUS: Full code DVT prophylaxis: Lovenox Discussed with: Patient, orthospine surgery and RN Anticipated discharge date: Tomorrow Anticipated discharge place: Home A total of 35 minutes was spent on the care of this complex patient more than 50% of the time was spent in counseling and care coordination. Objective - Vital Signs Vital signs: Vital Signs Temp 97.6 F 07/18/22 07:45 Pulse 50 L 07/18/22 07:45 Resp 18 07/18/22 07:45 BP 150/76 07/18/22 07:45 Pulse Ox 96 07/18/22 07:45 FiO2 Intake & Output 07/17/22 07/18/22 07/18/22 18:59 06:59 18:59 Intake Total 240 Balance 240 Weight 104.326 kg Intake: Oral 240 - Labs CBC & Chem 7: 07/17/22 22:20 07/17/22 22:20 Labs: Abnormal Lab Results - Last 24 Hours (Table) 07/17/22 Range/Units 22:20 BUN 26 H (9-20) mg/dL Glucose 121 H (74-99) mg/dL
[2022-07-18 17:00] LABS: Glucose,Whole Blood 168 mg/dL (70-110)
[2022-07-18] MEDS: INSULIN ASPART (NovoLOG) 100 UNIT/ML VIAL SQ SCH ×2 (17:24→20:25)
[2022-07-18 19:00] LABS: Glucose,Whole Blood 132 mg/dL (70-110)
[2022-07-18] MEDS: DULoxetine HCL 20 MG CAPSULE.DR PO SCH (20:27)
[2022-07-18] MEDS: ATORVASTATIN 40 MG TAB PO SCH (20:27)
[2022-07-19] MEDS ORDERED: polyethylene glycoL 3350 17 GM POWD.PACK PO STA (00:01)
[2022-07-19] MEDS: MORPHINE SULFATE 4 MG/ML SYRINGE IV PRN ×4 (02:57→15:46)
[2022-07-19 07:11] LABS: Glucose,Whole Blood 128 mg/dL (70-110)
[2022-07-19] MEDS: INSULIN ASPART (NovoLOG) 100 UNIT/ML VIAL SQ SCH ×4 (07:21→21:18)
[2022-07-19] MEDS: INSULIN DETEMIR (LEVEMIR) 100 UNIT/ML SYR SQ SCH (07:36)
[2022-07-19] MEDS: PANTOPRAZOLE 40 MG TABLET PO SCH (07:37)
[2022-07-19] MEDS: FOLIC ACID 1 MG TAB PO SCH (10:10)
[2022-07-19] MEDS: methocarbamoL 500 MG TAB PO SCH ×2 (10:10→21:18)
[2022-07-19] MEDS: PROPRANOLOL 40 MG TAB PO SCH ×2 (10:10→21:18)
[2022-07-19 12:09] LABS: Glucose,Whole Blood 126 mg/dL (70-110)
--- NOTE | 2022-07-19 15:37 | P.PAINPG ---
Objective - Vital Signs Vital signs: Vital Signs Temp 98.2 F 07/19/22 12:11 Pulse 58 L 07/19/22 12:11 Resp 18 07/19/22 12:11 BP 131/72 07/19/22 12:11 Pulse Ox 95 07/19/22 12:11 FiO2 Intake & Output 07/18/22 07/19/22 07/19/22 18:59 06:59 18:59 Intake Total 720 500 240 Output Total 600 Balance 120 500 240 Weight 104.326 kg Intake: Oral 720 500 240 Output: Urine 600 Other: Voiding Method Toilet Toilet Urinal # Voids 1 1 - Labs CBC & Chem 7: 07/17/22 22:20 07/17/22 22:20 Labs: Abnormal Lab Results - Last 24 Hours (Table) 07/18/22 07/18/22 07/19/22 Range/Units 16:59 18:59 07:09 POC Glucose (mg/dL) 168 H 132 H 128 H (70-110) mg/dL 07/19/22 Range/Units 12:07 POC Glucose (mg/dL) 126 H (70-110) mg/dL PQRS Measure Charge Sheet Comment: HISTORY OF PRESENT ILLNESS: 82 yr old inpatient male as a referral from Dr. Evangelista presents today w severe and chronic LBP secondary to lumbar stenosis, DDD, spondylosis, facet arthropathy without myelopathy for evaluation. Pt states his pain level is currently at 9/10 in intensity, constant, throbbing/achy/stabbing in character, localized in the center of his lumbar spine w radiation down the RLE. Pain is provoked w standing/ walking for periods of 10 min or more. Pain is alleviated slightly w in house medications (Morphine Sulfate IV q4h prn, [place] 10/325mg q4h prn), LESIs in the past, repositioning, heat and rest. CT and MRI of the lumbar spine reviewed. PMH: CAD, Diabetes Mellitus, GI Bleed, Hyperlipidemia, OA, Choledocholithiasis, MDD/ Anxiety, Schizophrenia PSH: Cholecystectomy, Cardiac Stent x3 (last in 1999), RUE Fx w repair in childhood, L eyelid surgery. SH: Daily tobacco use, NO ETOH abuse, No illicit drug use. FH: Fa- CAD. Mo- No Reported History All: NKDA Meds: See list REVIEW OF ORGAN SYSTEMS: CONSTITUTIONAL: No fevers or chills. No recent weight loss. NEUROLOGICAL: + numbness and tingling along the distal extremities. No seizure disorders or headaches. MUSCULOSKELETAL: + pain PSYCHIATRIC: Denies current depression or suicidal thoughts. Physical Examinations : Constitutional : Cooperative , not in acute distress . Neurologic : Cranial nerve II to XII intact. No focal neurological deficits. Psychiatric : alert & oriented x 3. Matching mood & appropriate affect. Judgment & insight intact. Musculoskeletal : Cervical Spine Motor strength in the deltoid and biceps: Normal right side. Normal Left side Motor strength biceps and the wrist extensors: Normal right side . Normal left side Motor strength in the triceps muscle: Normal right side. Normal left side Deep tendon reflexes: Normal at the biceps. Normal at Brachioradialis. Normal at triceps Vertebral body tenderness to deep palpation over Cervical facet loading test: positive bilaterally Spurling test: positive bilaterally Neck distraction test: positive bilate rally [place] sign: positive bilaterally Lumbar spine Motor strength lower extremities ,thigh and legs 5/5 Right side , 5/5 Left side Deep tendon reflexes : Normal Knee Jerk. Normal Ankle Jerk Vertebral body tenderness over L3, L4 Lumbar facet Loading Test: positive Right / positive Left Range of motion of the lumbar spine Flexion 30 degrees, extension 10 degrees Straight Leg Raise test: Left/ Right positive at degree Brigette test: positive right / positive left. Severe tenderness over the Sacroiliac joint on the Right / Left sides Gaenslen test: positive bilaterally Seated flexion test: positive bilaterally. Sacral spine : Severe tenderness over the Sacroiliac joint: right side / left side Range of motion: Flexion of the lumbar spine <60 degrees Range of motion: Extension of the lumbar spine <20 degrees Gaenslen's Test positive Marvel's Test positive Brigette test: positive right side / left side Thigh Thrust Test Sacral Thrust Test Imaging: CT without contrast of the lumbar spine form 04/04/22 reviewed MRI without contrast of the lumbar spine form 04/06/22 reviewed Assessment/ Plan : Lumbar stenosis, Lumbar DDD, Lumbar spondylosis Recommendation of LACHELLE R Paramedian L3-L4. May need a series of injections, up to 3 within a 6 mo period, for optimal pain relief. Risks, benefits of procedure discussed and patient verbalized understanding. Admits to aspirin or anti- coagulant use or medical history of diabetes. Protocol for discontinuation/ continuation of medications sandy procedure discussed. All questions answered. I have spent greater than 30 minutes on patient care today. Dr Cochran was available by phone for the evaluation of this patient. The time was used to revi ew the medical records including relevant urine studies and Prescription history (MAPs), review of the available imaging, evaluation and examination of the patient, coordination of care with the medical staff and if applicable referring physicians, as well as creation of the medical record - Pain Location Back Pharmacological Interventions: PRN Medication Pain Comment: See MAR for pain assessment PQRS Narrative: Smoking Status Current every day smoker Do You Want the Pneumonia No Vaccine AT THIS TIME? Blood Pressure [Left Arm] 131/72 Blood Pressure 122/97 Pain Intensity [Back] 7 Pain Intensity 3 Pain Scale Used Numeric (1 - 10) Scale Used Numeric (1 - 10) Hx Alcohol Use (MH) No Home Medications: Ambulatory Orders Atorvastatin [Lipitor] 40 mg PO HS 01/01/17 Aspirin [Adult Low Dose Aspirin EC] 81 mg PO DAILY 05/29/18 Cholecalciferol [Vitamin D3 (10 Mcg = 400 Iu)] 400 unit PO DAILY 05/29/18 Lidocaine 5% Patch [Lidoderm 5% Patch] 1 patch TOPICAL DAILY PRN 04/04/22 Propranolol [Inderal] 40 mg PO BID 04/04/22 methocarbamoL [Robaxin] 500 mg PO BID 04/04/22 metFORMIN HCL 1,000 mg PO BID 06/30/22 Insulin Glargine,Hum.rec.anlog [Insulin Glargine Solostar] 20 unit SQ DAILY@1200 07/04/22 DULoxetine HCL [Cymbalta] 20 mg PO HS 07/17/22 Folic Acid 1 mg PO DAILY 07/17/22 Magnesium Oxide [Mag-Ox] 250 mg PO DAILY 07/17/22 Meloxicam [Mobic] 7.5 mg PO BID 07/17/22 Insulin Aspart [NovoLOG Flexpen] See Protocol SQ ACHS 07/18/22 Lactulose 20 gm PO DAILY PRN 07/18/22 Controlled Substance Measures - Controlled Substance Measures Is patient prescribed a controlled substance at discharge?: No
--- NOTE | 2022-07-19 17:31 | P.PN ---
Subjective Progress Note Date: 07/19/22 Hospital course: Patient is a very pleasant 82-year-old male with a past medical history of CAD status post stents, hypertension, hyperlipidemia, diabetes mellitus, spinal stenosis with herniated disks and chronic back pain. He presented to the emergency department on 07/17/22 with a chief complaint of uncontrolled lower back pain with radiculopathy of right lower extremities. Patient is currently under treatment by pain management clinic where he follows up outpatient for epidural injections and physical therapy after electing to undergo conservative treatment of his L2 through L5 severe spinal stenosis and disc herniation. Patient reported that up until most recent injection he has been receiving moderate pain control through epidural injections. Patient states the last epidural injection he received was on 07/04/22 and patient states it is no longer controlling back pain. Patient reports severe pain to lower spine radiating down right leg with numbness and tingling. He denies having any changes in his previously known occasional episodes of urinary or bowel incontinence. Patient reports due to the severe pain he is having difficulties ambulating. Patient was admitted to observation under our services with consultation to orthospine and pain management. Physical exam: Patient seen and fully evaluated at the bedside this morning. Patient awaiting to have epidural injection done later today. RN states he has not yet received a time for planned procedure to be completed. Patient currently resting comfortably at this time. Reports morphine controlling pain management continues to deny having any new neurological deficits. Patient has been ambulating to and from restroom without any reported difficulties. Vital signs reviewed and stable. General: Nontoxic, no distress and appears stated age. Derm: Skin warm and dry, normal coloration for ethnicity. Head: Atraumatic, normocephalic and symmetric. Eyes: EOMs intact, no lid lag, and anicteric sclera Mouth: no lip lesions, mucus membranes moist Cardiovascular: regular rate and rhythm with normal S1S2 systolic murmur, positive posterior tibial pulses bilaterally, and cap refill < 2 seconds. Lungs: Respirations even, regular, and unlabored on room air. Lungs CTA bilaterally, no rhonchi, no rales, no wheezing, and no accessory muscle usage. Abdominal: soft, nontender to palpation, no guarding, no appreciable organomegaly Ext: ROM intact. No gross muscle atrophy, no edema, no contractures. Movement and sensation intact. Neuro: Speech clear, face symmetrical and CN II-XII grossly intact with no noted focal neuro deficits Psych: Alert and oriented to person, place, time, and situation. Appropriate and pleasant affect. Assessment and Plan of Care: Intractable lower back pain with radiculopathy to right lower extremity Severe spinal stenosis L2 through L5 -Pain management and symptomatic care. -Orthospine consulted -Anesthesia/pain management consulted -Fall precautions. -PT/OT Insulin-dependent diabetes mellitus -Hold Glucophage and continue long-acting insulin glargine and place patient on glycemic protocol with NovoLog sliding scale. Hypertension -Continue daily medication regimen with propranolol. Hyperlipidemia -Continue daily medication regimen with atorvastatin. History of CAD status post stenting -Aspirin to be held per recommendations of anesthesiologist planing for epidural injection tomorrow morning. CODE STATUS: Full code DVT prophylaxis: Lovenox Discussed with: Patient and RN Anticipated discharge date: Tomorrow Anticipated discharge place: Home A total of 35 minutes was spent on the care of this complex patient more than 50% of the time was spent in counseling and care coordination. Objective - Vital Signs Vital signs: Vital Signs Temp 97.6 F 07/19/22 02:05 Pulse 57 L 07/19/22 02:05 Resp 17 07/19/22 02:05 BP 122/76 07/19/22 02:05 Pulse Ox 94 L 07/19/22 02:05 FiO2 Intake & Output 07/18/22 07/19/22 07/19/22 18:59 06:59 18:59 Intake Total 720 500 Output Total 600 Balance 120 500 Weight 104.326 kg Intake: Oral 720 500 Output: Urine 600 Other: Voiding Method Toilet # Voids 1 - Labs CBC & Chem 7: 07/17/22 22:20 07/17/22 22:20 Labs: Abnormal Lab Results - Last 24 Hours (Table) 07/18/22 07/18/22 07/19/22 Range/Units 16:59 18:59 07:09 POC Glucose (mg/dL) 168 H 132 H 128 H (70-110) mg/dL
[2022-07-19 17:56] LABS: Glucose,Whole Blood 149 mg/dL (70-110)
[2022-07-19 21:04] LABS: Glucose,Whole Blood 176 mg/dL (70-110)
[2022-07-19] MEDS: DULoxetine HCL 20 MG CAPSULE.DR PO SCH (21:18)
[2022-07-19] MEDS: ATORVASTATIN 40 MG TAB PO SCH (21:18)
[2022-07-20] MEDS: MORPHINE SULFATE 4 MG/ML SYRINGE IV PRN (02:56)
[2022-07-20] MEDS ORDERED: LACTATED RINGERS 1,000 ML IV ONE ×2 (07:30→08:04)
[2022-07-20 07:34] LABS: Glucose,Whole Blood 134 mg/dL (70-110)
[2022-07-20] MEDS ORDERED: fentaNYL (PF) 50 MCG/ML 2 ML AMP ONE (07:49)
[2022-07-20] MEDS ORDERED: IOPAMIDOL M200 10 ML VIAL ONE (07:49)
[2022-07-20] MEDS ORDERED: MIDAZOLAM 2 MG/2 ML VIAL ONE (07:49)
[2022-07-20] MEDS ORDERED: methylPREDNISolone ACETATE 40 MG/ML 1 ML VIAL ONE (07:49)
--- NOTE | 2022-07-20 07:58 | P.PCN ---
Date of Procedure: 07/20/22 Procedure(s) Performed: PREOPERATIVE DIAGNOSIS: 1- Lumbar Degenerative Disc Diseases 2-Lumbar spondylosis with Facet arthropathy without myelopathy. 3-lumbar radiculopathy. 4-lumbar spinal stenosis POSTOPERATIVE DIAGNOSIS: Same as preop diagnosis. PROCEDURE 1. Lumbar epidural steroid injection under fluoroscopic guidance at the L4-5 level. (Fluoroscopy imaging was available in radiology department) 2. Lumbar epidurogram. ANESTHESIA: moderate sedation with intravenous Versed 1 mg ,and fentanyle 50 Mcg Sedation start time : 0 752 Sedation end time : 0 757 EBL: Minimal PROCEDURE INDICATION: The patient with low back pain and radiculitis symptoms unresponsive to conservative treatment. Fluoroscopy was used to optimize visualization of the needle placement and to maximize safety. PROCEDURE DESCRIPTION / TECHNIQUE: The patient was seen and identified in the preoperative area. Risks, benefits, complications including but not limited to infections ,bleeding ,allergic reaction to the medications ,nerve damage and not complete pain releife , and alternatives were discussed with the patient. The patient agreed to proceed with the procedure and signed the consent. IV was started, and vital signs were stabl e. Patient was taken to the OR and time out was completed. The patient was placed in the prone position on procedure table and a pillow was placed under the abdomen to reduce lumbar lordosis. The lumbosacral area was prepped and draped in the usual sterile fashion.ere closely monitored during the procedure. Conscious sedation was used during the procedure to decrease patients anxiety. Vital signs was monitered during the entire procedure. Using anterior-posterior fluoroscopy, the L4-5 interlaminar space was identified and the skin over this site was marked and then infiltrated with 1% lidocaine subcutaneously. Subsequently, a 20-gauge Tuohy epidural needle was inserted and advanced toward the epidural space using the ``Loss of resistance technique and guided by AP and lateral fluoroscopy. The correct needle position in the epidural space was verified with the injection of 2 mL of the water soluble contrast dye Isovue 200 contrast and observing an excellent epidurogram with the epidural spread of the dye, after negative aspiration for blood and CSF and in the absence of paresthesias. Again after negative aspiration, a 6 ml mixture containing 40 mg of Depo-medrol , and 2 ml of preservative free Normal Saline, and 2 ml of preservative free lidocaine 1% solution was injected and a washout of epidurogram was seen. Needle was withdrawn intact, skin was cleansed, and bandages were applied. COMPLICATIONS: None DISPOSITION / PLANS: The patient was placed in a supine position and transferred to the recovery area in a stable condition for observation. There was no evidence of lower extremity motor or sensory deficit after the procedure. Patient was discharged from the recovery room after meeting discharge criteria. Home discharge instructions were given to the patient by the staff. The patient was reexamined prior to discharge. The patient will schedule a follow up in the clinic in 2-4 weeks.
[2022-07-20 08:19] VITALS: RESP 18
[2022-07-20] MEDS: INSULIN ASPART (NovoLOG) 100 UNIT/ML VIAL SQ SCH ×2 (08:22→13:53)
[2022-07-20] MEDS: PANTOPRAZOLE 40 MG TABLET PO SCH (10:03)
[2022-07-20] MEDS: methocarbamoL 500 MG TAB PO SCH (10:03)
[2022-07-20] MEDS: INSULIN DETEMIR (LEVEMIR) 100 UNIT/ML SYR SQ SCH (10:03)
[2022-07-20] MEDS: FOLIC ACID 1 MG TAB PO SCH (10:03)
[2022-07-20] MEDS: PROPRANOLOL 40 MG TAB PO SCH (10:03)
--- NOTE | 2022-07-20 10:48 | FL ---
Intraoperative/procedural fluoroscopic services were provided. Total fluoroscopy time is 5 seconds wi th a total of 1 submitted images to PACS. Please see the operative/procedural note for further detail s.
[2022-07-20 12:03] LABS: Glucose,Whole Blood 148 mg/dL (70-110)
--- NOTE | 2022-07-20 13:42 | P.DS ---
Providers Date of admission: 07/17/22 21:14 Expected date of discharge: 07/20/22 Attending physician: Kendall Vuong MD Consults: 07/17/22 21:14 Consult Physician Routine Consulting Provider: Grey Evangelista Consult Reason/Comments: Intractable low back pain Do you want consulting provider notified?: Yes Primary care physician: [facility] Hospital Course: Discharge Diagnosis: Intractable lower back pain with radiculopathy to right lower extremity secondary to Severe spinal stenosis L2 through L5. Patient received epidural in jection and to follow up outpatient with pain management and orthopedic surgery team. Insulin-dependent diabetes mellitus. Resume Glucophage and continue long-acting insulin insulin glargine. Hypertension. Continue daily medication regimen with propranolol. Hyperlipidemia. Continue daily medication regimen with atorvastatin. History of CAD status post stenting. May resume aspirin Hospital Course: Patient is a very pleasant 82-year-old male with a past medical history of CAD status post stents, hypertension, hyperlipidemia, diabetes mellitus, spinal stenosis with herniated disks and chronic back pain. He presented to the emergency department on 07/17/22 with a chief complaint of uncontrolled lower back pain with radiculopathy of right lower extremities. Patient is currently under treatment by pain management clinic where he follows up outpatient for epidural injections and physical therapy after electing to undergo conservative treatment of his L2 through L5 severe spinal stenosis and disc herniation. Patient reported that up until most recent injection he has been receiving moderate pain control through epidural injections. Patient states the last epidural injection he received was on 07/04/22 and patient states it is no longer controlling back pain. Patient reports severe pain to lower spine radiating down right leg with numbness and tingling. He denies having any changes in his previously known occasional episodes of urinary or bowel incontinence. Patient reports due to the severe pain he is having difficulties ambulating. Patient was admitted to observation under our services with consultation to orthospine and pain management. Patient was evaluated by orthopedic surgery team recommending outpatient follow-up in the office as patient may likely need spinal decompression and fusion. Orthopedic surgery team consulted pain management for epidural injection. Patient received epidural injection this morning by anesthesia and reports full resolution of previously reported pain and continues to deny having any neurological deficits. Patient ambulatory in room without difficulties and is stable for discharge home. Patient to follow up outpatient with PCP, pain management, and orthopedic surgery team. Physical exam: Vital signs reviewed and stable. General: Nontoxic, no distress and appears stated age. Derm: Skin warm and dry, normal coloration for ethnicity. Head: Atraumatic, normocephalic and symmetric. Eyes: EOMs intact, no lid lag, and anicteric sclera Mouth: no lip lesions, mucus membranes moist Cardiovascular: regular rate and rhythm with normal S1S2 systolic murmur, positive posterior tibial pulses bilaterally, and cap refill < 2 seconds. Lungs: Respirations even, regular, and unlabored on room air. Lungs CTA bilaterally, no rhonchi, no rales, no wheezing, and no accessory muscle usage. Abdominal: soft, nontender to palpation, no guarding, no appreciable organomegaly Ext: ROM intact. No gross muscle atrophy, no edema, no contractures. Movement and sensation intact. Neuro: Speech clear, face symmetrical and CN II-XII grossly intact with no noted focal neuro deficits Psych: Alert and oriented to person, place, time, and situation. Appropriate and pleasant affect. A total of 33 minutes of time were spent preparing this complex discharge summary. Pt was discharged on 07/20/20 to 1:35 PM Patient Condition at Discharge: Stable Plan - Discharge Summary New Discharge Prescriptions: Continue Atorvastatin [Lipitor] 40 mg PO HS Cholecalciferol [Vitamin D3 (10 Mcg = 400 Iu)] 400 unit PO DAILY Aspirin [Adult Low Dose Aspirin EC] 81 mg PO DAILY Lidocaine 5% Patch [Lidoderm 5% Patch] 1 patch TOPICAL DAILY PRN PRN Reason: Pain methocarbamoL [Robaxin] 500 mg PO BID Propranolol [Inderal] 40 mg PO BID metFORMIN HCL 1,000 mg PO BID Insulin Glargine,Hum.rec.anlog [Insulin Glargine Solostar] 20 unit SQ DAILY@1200 Meloxicam [Mobic] 7.5 mg PO BID Magnesium Oxide [Mag-Ox] 250 mg PO DAILY Insulin Aspart [NovoLOG Flexpen] See Protocol SQ ACHS DULoxetine HCL [Cymbalta] 20 mg PO HS Folic Acid 1 mg PO DAILY Lactulose 20 gm PO DAILY PRN PRN Reason: Constipation Discharge Medication List Atorvastatin [Lipitor] 40 mg PO HS 01/01/17 [History] Aspirin [Adult Low Dose Aspirin EC] 81 mg PO DAILY 05/29/18 [History] Cholecalciferol [Vitamin D3 (10 Mcg = 400 Iu)] 400 unit PO DAILY 05/29/18 [History] Lidocaine 5% Patch [Lidoderm 5% Patch] 1 patch TOPICAL DAILY PRN 04/04/22 [History] Propranolol [Inderal] 40 mg PO BID 04/04/22 [History] methocarbamoL [Robaxin] 500 mg PO BID 04/04/22 [History] metFORMIN HCL 1,000 mg PO BID 06/30/22 [History] Insulin Glargine,Hum.rec.anlog [Insulin Glargine Solostar] 20 unit SQ DAILY@1200 07/04/22 [History] DULoxetine HCL [Cymbalta] 20 mg PO HS 07/17/22 [History] Folic Acid 1 mg PO DAILY 07/17/22 [History] Magnesium Oxide [Mag-Ox] 250 mg PO DAILY 07/17/22 [History] Meloxicam [Mobic] 7.5 mg PO BID 07/17/22 [History] Insulin Aspart [NovoLOG Flexpen] See Protocol SQ ACHS 07/18/22 [History] Lactulose 20 gm PO DAILY PRN 07/18/22 [History] Follow up Appointment(s)/Referral(s): Cas Frey, PAC [PHYSICIAN PHOTOGRAPHER NEWS] - 2 Weeks (Patient may follow-up with Cas Frey PA-C or Dr. Luis Miguel Evangelista at [facility] in 2-3 weeks following discharge. ) [facility],Clinic [Primary Care Provider] - 1-2 days Patient Instructions/Handouts: Low Back Strain (DC), Lumbar Radiculopathy (ED) Activity/Diet/Wound Care/Special Instructions: Activity: As tolerated. Take breaks as needed. Diet: Heart healthy and carb consistent diet. Avoid salts, or foods with hidden salts such as canned or boxed foods and frozen dinners. Extra salt makes your heart work harder and traps the fluid in your body for longer. Special Instructions: Take all of your medications as directed and remember to keep all of your doctor's appointments and follow-up as needed. Thank you for allowing us to participate in your care, it was truly a pleasure having you for our patient!!! Discharge/Stand Alone Forms: Anes Pain/[place] Instructions Discharge Disposition: HOME WITH HOME HEALTH SERVICES
[2022-07-20 18:30] VITALS: BP 140/72; PULSE 52; TEMP 97.5
== END 2022-07-20 14:09 | disposition home health service (06) ==
LOC: EC 16:57 → 6NMEDSUR 21:14
PROVIDERS: ADMIT Internal Medicine; ATTEND Internal Medicine
DX: M47.26 Other spondylosis with radiculopathy, lumbar region (principal); M48.062 Spinal stenosis, lumbar region with neurogenic claudication; M51.16 Intervertebral disc disorders with radiculopathy, lumbar region; M43.16 Spondylolisthesis, lumbar region; R00.1 Bradycardia, unspecified; F41.9 Anxiety disorder, unspecified; G25.0 Essential tremor; F32.A Depression, unspecified; F41.0 Panic disorder [episodic paroxysmal anxiety]; E11.9 Type 2 diabetes mellitus without complications; I25.10 Atherosclerotic heart disease of native coronary artery without angina pectoris; I10 Essential (primary) hypertension; F17.200 Nicotine dependence, unspecified, uncomplicated; F20.9 Schizophrenia, unspecified; E78.5 Hyperlipidemia, unspecified; Z79.82 Long term (current) use of aspirin; Z79.84 Long term (current) use of oral hypoglycemic drugs; Z79.899 Other long term (current) drug therapy; Z95.5 Presence of coronary angioplasty implant and graft; Z90.49 Acquired absence of other specified parts of digestive tract; Z82.49 Family history of ischemic heart disease and other diseases of the circulatory system; Z79.4 Long term (current) use of insulin
CPT/HCPCS: 96376 ×4; 96372; 96374; 96375; 99285; 93005; 80053; 85025; 85610; 85730; 62323; G0378 ×4; J2250; J2270 ×4; J1030; J1650; J3010; J1885; Q9966

== ENCOUNTER 2022-07-24 10:07 | Emergency (ER) | payer OTHER ==
[2022-07-24 10:30] VITALS: BP 119/77; PULSE 88; RESP 18; TEMP 98.2
[2022-07-24] MEDS ORDERED: HYDROmorphone 0.5 MG/0.5 ML SYRINGE IVP STA (11:50)
--- NOTE | 2022-07-24 11:55 | ED ---
Back Pain HPI - General Chief Complaint: Back Pain/Injury Stated Complaint: revisit - fall, head injury, back pain Time Seen by Provider: 07/24/22 11:38 Source: patient, family (son), RN notes reviewed, old records reviewed Limitations: no limitations - History of Present Illness Initial Comments: This is an 82-year-old male that presents with his son with complaints of a fall 2 days ago onto carpet. Patient states that he tripped falling forward onto his face, hitting his nose on the carpet. States he did not lose consciousness. Does not take any blood thinners other than aspirin. He is complaining of chronic low back pain. which is worse since the fall along with right hip pain. He did recently have a spinal epidural injection on July 20 and at that time was directed to follow up with Dr. Evangelista orthopedics but has not made that appointment yet. Complaint: back pain, fall -: days(s) (2) Similar Symptoms Previously: Yes Severity scale (1-10): 7 Consistency: constant Improves With: immobilization Worsens With: movement Associated Symptoms: difficulty walking, other (facial/nose pain) - Related Data Home Medications Medication Instructions Recorded Confirmed Atorvastatin [Lipitor] 40 mg PO HS 01/01/17 07/17/22 Aspirin [Adult Low Dose Aspirin EC] 81 mg PO DAILY 05/29/18 07/17/22 Cholecalciferol [Vitamin D3 (10 400 unit PO DAILY 05/29/18 07/17/22 Mcg = 400 Iu)] Lidocaine 5% Patch [Lidoderm 5% 1 patch TOPICAL DAILY PRN 04/04/22 07/17/22 Patch] Propranolol [Inderal] 40 mg PO BID 04/04/22 07/17/22 methocarbamoL [Robaxin] 500 mg PO BID 04/04/22 07/17/22 metFORMIN HCL 1,000 mg PO BID 06/30/22 07/17/22 Insulin Glargine,Hum.rec.anlog 20 unit SQ DAILY@1200 07/04/22 07/17/22 [Insulin Glargine Solostar] DULoxetine HCL [Cymbalta] 20 mg PO HS 07/17/22 07/18/22 Folic Acid 1 mg PO DAILY 07/17/22 07/17/22 Magnesium Oxide [Mag-Ox] 250 mg PO DAILY 07/17/22 07/17/22 Meloxicam [Mobic] 7.5 mg PO BID 07/17/22 07/18/22 Insulin Aspart [NovoLOG Flexpen] See Protocol SQ ACHS 07/18/22 07/18/22 Lactulose 20 gm PO DAILY PRN 07/18/22 07/18/22 Allergies Allergy/AdvReac Type Severity Reaction Status Date / Time No Known Allergies Allergy Verified 07/24/22 10:30 Review of Systems ROS Statement: Those systems with pertinent positive or pertinent negative responses have been documented in the HPI. ROS Other: All systems not noted in ROS Statement are negative. Past Medical History Past Medical History: Coronary Artery Disease (CAD), Diabetes Mellitus, GI Bleed, Hyperlipidemia, Osteoarthritis (OA) Additional Past Medical History / Comment(s): ESSENTIAL TREMORS, GI bleed 10/2017, diverticulitis, gallstones, some loss of use of rt arm, herniated disk, spinal stenosis History of Any Multi-Drug Resistant Organisms: None Reported Past Surgical History: Cholecystectomy Additional Past Surgical History / Comment(s): 3 cardiac stents, surgery on rt arm x 3 -fx as child, left eyelid surgery Past Anesthesia/Blood Transfusion Reactions: No Reported Reaction Date of Last Stent Placement:: 1999 Past Psychological History: Anxiety, Depression, Panic Disorder, Schizophrenia Smoking Status: Current every day smoker Past Alcohol Use History: None Reported Past Drug Use History: None Reported - Past Family History Mother Family Medical History: No Reported History family Family Medical History: Coronary Artery Disease (CAD) General Exam Limitations: no limitations General appearance: alert, in no apparent distress Head exam: Present: normocephalic, other (Abrasions to his nose) Expanded Head exam: Absent: laceration, hematoma, raccoon eyes, tenderness of temporal artery Neck exam: Present: full ROM. Absent: tenderness, meningismus Respiratory exam: Absent: respiratory distress, accessory muscle use Cardiovascular Exam: Present: regular rate GI/Abdominal exam: Present: soft. Absent: distended, tenderness, guarding, rebound, rigid Extremities exam: Present: normal capillary refill Right Hip exam: Present: tenderness, pelvic stability. Absent: external rotation, internal rotation, shortening Upper Leg exam: Absent: tenderness, swelling Knee exam: Absent: tenderness, swelling Lower Leg exam: Absent: tenderness, swelling Ankle exam: Absent: tenderness, swelling Foot/Toe exam: Absent: tenderness, swelling Neurovascular tendon exam: Present: abnormal cap refill. Absent: extremity cold to touch, pallor, foot drop Back exam: Present: tenderness (LS-spine), vertebral tenderness. Absent: muscle spasm, rash noted Expanded Back exam: Absent: saddle anesthesia Back exam: Positive Straight Leg Raise: Right, Left Neurological exam: Present: alert, oriented X3 Psychiatric exam: Present: normal affect, normal mood Skin exam: Present: warm, dry, normal color. Absent: cyanosis, diaphoretic, petechiae, pallor Course Vital Signs 07/24/22 10:24 Temperature 98.2 F Pulse Rate 88 Respiratory 18 Rate Blood Pressure 119/77 O2 Sat by Pulse 98 Oximetry Medical Decision Making - Medical Decision Making Patient was seen by Dr. Brewer July 17. Intractable low back pain with radiculopathy of the right lower extremity with severe spinal stenosis L2 through L5 patient is being seen at outpatient pain management clinic instructed to follow up with Dr. Evangelista orthopedics in 2-3 weeks. He was prescribed Lidoderm patches along with Robaxin and Mobic for pain. X-ray of the lumbar sacral spine shows hypertrophic facet arthropathy throughout. Moderate degenerative disc disease mid to lower lumbar spine there is no vertebral compression claps or malalignment. X-ray of the hip shows post-arthritic changes with diffuse osteopenia no evidence of acute fracture or dislocation. CT of the brain and C-spine and facial bones show no evidence of fracture. No intracranial hemorrhage or midline shift. Patient is urinating in a urinal. No bowel or bladder incontinence. No evidence of foot drop. He is able to lift both legs up off the bed. There is no evidence of bruising to his low back. No erythema. Patient denies any fevers. At discharge patient is standing at the end of the bed with his son. They were directed to continue the pain medication as previously prescribed and follow-up with orthopedics as recommended. Disposition Clinical Impression: Chronic low back pain, Fall Disposition: HOME SELF-CARE Condition: Good Instructions (If sedation given, give patient instructions): Fall Prevention for Older Adults (ED), Chronic Back Pain (DC) Additional Instructions: Continue taking your previously prescribed pain medications. Please follow-up with Dr. Evangelista as directed for continuation of care for your low back pain. Is patient prescribed a controlled substance at d/c from ED?: No Referrals: [facility],Clinic [Primary Care Provider] - 1-2 days Grey Evangelista DO [Doctor of Osteopathic Medicine] - 1-2 days Time of Disposition: 12:47
[2022-07-24] MEDS ORDERED: HYDROmorphone 0.5 MG/0.5 ML SYRINGE IM STA (12:00)
--- NOTE | 2022-07-24 12:25 | CT ---
EXAMINATION TYPE: CT brain vladimir gupta DATE OF EXAM: 07/24/2022 COMPARISON: NONE HISTORY: FALL injury with headache and neck pain CT DLP: 813.2 mGycm. Automated Exposure Control for Dose Reduction was Utilized. TECHNIQUE: CT scan of the head and cervical spine are performed without contrast. FINDINGS: There is no acute intracranial hemorrhage or midline shift identified. Mild to moderate v entricular and sulcal prominence. Mild to moderate low-attenuation in the deep and periventricular wh ite matter. There is 8-9mm hyperdense round focus in the midline at level of the third ventricle cons istent with colloid cyst. The calvarium is intact. Cervical spine is visualized in its entirety from C1 through upper thoracic levels and demonstrates d extroconvex scoliosis centered near the cervical thoracic junction without evidence of acute fracture or dislocation. Prevertebral soft tissue appears within normal limits. The C1-C2 articulation is w ithin normal limits on the coronal images. Vertebral body heights are maintained. Posterior spurring effaces the anterior thecal sac at C3-C4 level. Moderate to severe spurring and disc space narrowing C5-C6 through the C7-T1 levels is present. Axial images show multilevel uncovertebral facet degenera tive changes contributing to multilevel bilateral neural foraminal narrowing. Ybks-zv-peptciez calcif ied plaque left greater than right carotid bulb is present. Thyroid gland appears within normal limit s. Lung apices show no pneumothorax. IMPRESSION: 1. There is no acute fracture or dislocation evident in the cervical spine. Scoliosis and multilevel degenerative changes are present. 2. No acute intracranial hemorrhage or midline shift is seen. Vlga-lq-nbpjorny diffuse cerebral atrop hy and chronic small vessel ischemic change. There is 9 mm colloid cyst noted.
--- NOTE | 2022-07-24 12:33 | CT ---
EXAMINATION TYPE: CT facial bones wo con DATE OF EXAM: 07/24/2022 COMPARISON: none HISTORY: FALL, pain CT DLP: 300 mGycm Automated exposure control for dose reduction was used. TECHNIQUE: CT scan of the sinuses is performed without contrast, axial images are obtained, coronal r eformatted images are also reviewed. FINDINGS: The paranasal sinuses including the frontal, ethmoid, sphenoid, and maxillary sinuses bila terally are well-aerated without abnormal opacification. The ostiomeatal complex is patent bilateral ly on the coronal images. Visualized portion of mastoid air cells show no abnormal opacification. The globes are intact bilate rally. Findings are suggestive of left TMJ subluxation or dislocation correlate with point tenderness . Changes of mild chronic ethmoidal sinusitis There is a rounded hyperdensity in the region of the third ventricle measuring 7.8 mm partially incl uded in the [id number]. Generalized degenerative change within the visualized intracranial structu res are also noted. Hypertrophic and degenerative changes of the spine with facet arthropathy. Nasal septal deviation noted. No evidence of depressed nasal bone fracture. IMPRESSION: 1. No acute fracture. Findings are suspicious for left TMJ subluxation or dislocation correlate clini matteo. 2. There is a rounded 7.8 mm hyperdensity in the region of the third ventricle. This may represent a small colloid cyst. Only partially included in the [id number] and correlated with CT of the brain report to exclude hemorrhage.
--- NOTE | 2022-07-24 12:38 | XR ---
EXAMINATION TYPE: XR Hip RT and AP Pelvis DATE OF EXAM: 07/24/2022 COMPARISON: NONE HISTORY: Pain TECHNIQUE: A single AP view of the pelvis is obtained. Two views of the right hip are obtained. FINDINGS: Hypertrophic changes of the acetabulum concentric narrowing of the joint space. Diffuse ost eopenia. Vascular calcifications are seen. Degenerative changes in the spine. No definite acute fract ure or dislocation. IMPRESSION: 1. Post arthritic change with diffuse osteopenia.
--- NOTE | 2022-07-24 12:39 | XR ---
EXAMINATION TYPE: XR lumbosacral spine 5 views DATE OF EXAM: 07/24/2022 Comparison: None Clinical History: 82-year-old male with pain after fall Findings: 5 lumbar type vertebral bodies. Slight rotary levoconvex curvature. Hypertrophic facet arthropathy mi d to lower lumbar spine. Moderate degenerative disc disease mid and lower lumbar spine with some vacu um phenomenon, disc space narrowing, endplate spondylosis. Vertebral body heights are preserved and a lignment is maintained. Impression: Hypertrophic facet arthropathy throughout. Moderate degenerative disc disease mid to lower lumbar spi ne. No vertebral compression collapse or malalignment.
== END 2022-07-24 13:37 | disposition home or self-care (01) ==
LOC: EC 10:07
DX: G89.29 Other chronic pain (principal); M54.50 Low back pain, unspecified; E11.9 Type 2 diabetes mellitus without complications; E78.5 Hyperlipidemia, unspecified; I25.10 Atherosclerotic heart disease of native coronary artery without angina pectoris; Z79.82 Long term (current) use of aspirin; F17.200 Nicotine dependence, unspecified, uncomplicated; W01.0XXA Fall on same level from slipping, tripping and stumbling without subsequent striking against object, initial encounter
CPT/HCPCS: 72110; 73502; 72125; 70486; 70450; 99284; 96372; J1170

== ENCOUNTER 2022-07-26 10:07 | Observation (INO) | payer OTHER, MEDICARE ==
[2022-07-26] MEDS ORDERED: SODIUM CHLORIDE 0.9% 1,000 ML IV STA (10:16)
[2022-07-26] MEDS ORDERED: SODIUM CHLORIDE 0.9% 500 ML 500 ML IV STA ×2 (10:16→10:59)
[2022-07-26 10:32] LABS: Glucose,Whole Blood 143 mg/dL (70-110)
[2022-07-26 10:50] LABS: Albumin 4.1 g/dL (3.5-5.0); Calcium 8.8 mg/dL (8.4-10.2); Magnesium 1.9 mg/dL (1.6-2.3); Potassium 4.1 mmol/L (3.5-5.1); Total Bilirubin 0.8 mg/dL (0.2-1.3); Total Protein 6.2 g/dL (6.3-8.2)
--- NOTE | 2022-07-26 10:52 | ED ---
Weakness HPI - General Chief complaint: Weakness Stated complaint: back pain Time Seen by Provider: 07/26/22 10:10 Source: patient, EMS, RN notes reviewed Mode of arrival: EMS Limitations: no limitations - History of Present Illness Initial comments: 82-year-old male brought in by EMS at the [facility] patient daughter apparently came to visit last night patient's been weak and chronic back pain unable to get up to get medication or food he has had decreased oral intake and apparently is unable to care for himself. He was here recently and had fallen CAT scans done showing no definitive acute fractures or other findings patient complains some nasal pain. He does not believe the told him his nose is broken however. MD Complaint: generalized weakness - Related Data Home Medications Medication Instructions Recorded Confirmed Atorvastatin [Lipitor] 40 mg PO HS 01/01/17 07/26/22 Aspirin [Adult Low Dose Aspirin EC] 81 mg PO DAILY 05/29/18 07/26/22 Cholecalciferol [Vitamin D3 (10 400 unit PO DAILY 05/29/18 07/26/22 Mcg = 400 Iu)] Lidocaine 5% Patch [Lidoderm 5% 1 patch TOPICAL DAILY PRN 04/04/22 07/26/22 Patch] Propranolol [Inderal] 40 mg PO BID 04/04/22 07/26/22 methocarbamoL [Robaxin] 500 mg PO BID 04/04/22 07/26/22 metFORMIN HCL 1,000 mg PO BID 06/30/22 07/26/22 Insulin Glargine,Hum.rec.anlog 20 unit SQ DAILY@1200 07/04/22 07/26/22 [Insulin Glargine Solostar] DULoxetine HCL [Cymbalta] 20 mg PO HS 07/17/22 07/26/22 Folic Acid 1 mg PO DAILY 07/17/22 07/26/22 Magnesium Oxide [Mag-Ox] 250 mg PO DAILY 07/17/22 07/26/22 Meloxicam [Mobic] 7.5 mg PO BID 07/17/22 07/26/22 Insulin Aspart [NovoLOG Flexpen] See Protocol SQ ACHS 07/18/22 07/26/22 Lactulose 20 gm PO DAILY PRN 07/18/22 07/26/22 Allergies Allergy/AdvReac Type Severity Reaction Status Date / Time No Known Allergies Allergy Verified 07/26/22 11:52 Review of Systems ROS Statement: Those systems with pertinent positive or pertinent negative responses have been documented in the HPI. ROS Other: All systems not noted in ROS Statement are negative. Past Medical History Past Medical History: Coronary Artery Disease (CAD), Diabetes Mellitus, GI Bleed, Hyperlipidemia, Osteoarthritis (OA) Additional Past Medical History / Comment(s): ESSENTIAL TREMORS, GI bleed 10/2017, diverticulitis, gallstones, some loss of use of rt arm, herniated disk, spinal stenosis History of Any Multi-Drug Resistant Organisms: None Reported Past Surgical History: Cholecystectomy Additional Past Surgical History / Comment(s): 3 cardiac stents, surgery on rt arm x 3 -fx as child, left eyelid surgery Past Anesthesia/Blood Transfusion Reactions: No Reported Reaction Date of Last Stent Placement:: 1999 Past Psychological History: Anxiety, Depression, Panic Disorder, Schizophrenia Smoking Status: Current every day smoker Past Alcohol Use History: None Reported Past Drug Use History: None Reported - Past Family History Mother Family Medical History: No Reported History family Family Medical History: Coronary Artery Disease (CAD) General Exam - General Exam Comments Initial Comments: This is a well-developed well-nourished awake alert oriented 4 male he is somewhat lethargic Limitations: no limitations General appearance: alert, in no apparent distress Head exam: Present: other (Healing abrasion to the knees on) Eye exam: Present: normal appearance, PERRL, EOMI. Absent: scleral icterus, conjunctival injection, periorbital swelling ENT exam: Present: mucous membranes dry Neck exam: Present: normal inspection, full ROM, other (No stridor JVD or bruits). Absent: tenderness, meningismus, lymphadenopathy Respiratory exam: Present: normal lung sounds bilaterally. Absent: respiratory distress, wheezes, rales, rhonchi, stridor Cardiovascular Exam: Present: regular rate, normal rhythm, normal heart sounds. Absent: systolic murmur, diastolic murmur, rubs, gallop, clicks GI/Abdominal exam: Present: soft, normal bowel sounds. Absent: distended, tenderness, guarding, rebound, rigid Extremities exam: Present: normal inspection, full ROM, normal capillary refill. Absent: tenderness, pedal edema, joint swelling, calf tenderness Back exam: Present: normal inspection Neurological exam: Present: alert, oriented X3, CN II-XII intact Psychiatric exam: Present: normal affect, normal mood Skin exam: Present: warm, dry, intact, normal color. Absent: rash Course Vital Signs 07/26/22 07/26/22 07/26/22 10:09 10:30 11:00 Temperature 97.6 F Pulse Rate 60 58 L 57 L Respiratory 16 21 19 Rate Blood Pressure 117/65 117/65 124/75 O2 Sat by Pulse 100 95 Oximetry 07/26/22 11:30 Temperature Pulse Rate 62 Respiratory 20 Rate Blood Pressure 136/68 O2 Sat by Pulse 95 Oximetry Medical Decision Making - Medical Decision Making I did discuss the findings with the patient as well as his daughter was present patient will be admitted for inpatient evaluation and treatment of dehydration and weakness started to thrive. Elevated lactic acid is likely secondary to find depletion is no white identified infectious processes seen. - Lab Data Result diagrams: 07/26/22 10:24 07/26/22 10:24 Lab Results 07/26/22 07/26/22 07/26/22 Range/Units 10:21 10:24 10:24 WBC 8.2 (3.8-10.6) k/uL RBC 4.39 (4.30-5.90) m/uL Hgb 13.7 (13.0-17.5) gm/dL Hct 40.1 (39.0-53.0) % MCV 91.3 (80.0-100.0) fL MCH 31.2 (25.0-35.0) pg MCHC 34.1 (31.0-37.0) g/dL RDW 14.4 (11.5-15.5) % Plt Count 163 (150-450) k/uL MPV 7.7 Neutrophils % Not Reportable Lymphocytes % Not Reportable Monocytes % Not Reportable Eosinophils % Not Reportable Basophils % Not Reportable Neutrophils # Not Reportable Lymphocytes # Not Reportable Monocytes # Not Reportable Eosinophils # Not Reportable Basophils # Not Reportable Sodium (137-145) mmol/L Potassium (3.5-5.1) mmol/L Chloride (98-107) mmol/L Carbon Dioxide (22-30) mmol/L Anion Gap mmol/L BUN (9-20) mg/dL Creatinine (0.66-1.25) mg/dL Est GFR (CKD-EPI)AfAm (>60 ml/min/1.73 sqM) Est GFR (CKD-EPI)NonAf (>60 ml/min/1.73 sqM) Glucose (74-99) mg/dL POC Glucose (mg/dL) 143 H (70-110) mg/dL POC Glu Sterilization Specialist ID Judson Overton Plasma Lactic Acid Paul (0.7-2.0) mmol/L Calcium (8.4-10.2) mg/dL Magnesium (1.6-2.3) mg/dL Total Bilirubin (0.2-1.3) mg/dL AST (17-59) U/L ALT (4-49) U/L Alkaline Phosphatase (38-126) U/L Ammonia (<30) umol/L Creatine Kinase (55-170) U/L Troponin I (0.000-0.034) ng/mL Total Protein (6.3-8.2) g/dL Albumin (3.5-5.0) g/dL Lipase (23-300) U/L Urine Color Yellow Urine Appearance Clear (Clear) Urine pH 5.5 (5.0-8.0) Ur Specific [place] 1.028 (1.001-1.035) Urine Protein Trace H (Negative) Urine Glucose (UA) Negative (Negative) Urine Ketones Trace H (Negative) Urine Blood Negative (Negative) Urine Nitrite Negative (Negative) Urine Bilirubin Negative (Negative) Urine Urobilinogen <2.0 (<2.0) mg/dL Ur Leukocyte Esterase Negative (Negative) 07/26/22 07/26/22 07/26/22 Range/Units 10:24 10:24 10:24 WBC (3.8-10.6) k/uL RBC (4.30-5.90) m/uL Hgb (13.0-17.5) gm/dL Hct (39.0-53.0) % MCV (80.0-100.0) fL MCH (25.0-35.0) pg MCHC (31.0-37.0) g/dL RDW (11.5-15.5) % Plt Count (150-450) k/uL MPV Neutrophils % Lymphocytes % Monocytes % Eosinophils % Basophils % Neutrophils # Lymphocytes # Monocytes # Eosinophils # Basophils # Sodium 135 L (137-145) mmol/L Potassium 4.1 (3.5-5.1) mmol/L Chloride 102 (98-107) mmol/L Carbon Dioxide 22 (22-30) mmol/L Anion Gap 11 mmol/L BUN 35 H (9-20) mg/dL Creatinine 0.99 (0.66-1.25) mg/dL Est GFR (CKD-EPI)AfAm 83 (>60 ml/min/1.73 sqM) Est GFR (CKD-EPI)NonAf 72 (>60 ml/min/1.73 sqM) Glucose 144 H (74-99) mg/dL POC Glucose (mg/dL) (70-110) mg/dL POC Glu Sterilization Specialist ID Plasma Lactic Acid Paul 2.8 H* (0.7-2.0) mmol/L Calcium 8.8 (8.4-10.2) mg/dL Magnesium 1.9 (1.6-2.3) mg/dL Total Bilirubin 0.8 (0.2-1.3) mg/dL AST 84 H (17-59) U/L ALT 98 H (4-49) U/L Alkaline Phosphatase 61 (38-126) U/L Ammonia <9 (<30) umol/L Creatine Kinase 148 (55-170) U/L Troponin I <0.012 (0.000-0.034) ng/mL Total Protein 6.2 L (6.3-8.2) g/dL Albumin 4.1 (3.5-5.0) g/dL Lipase 86 (23-300) U/L Urine Color Urine Appearance (Clear) Urine pH (5.0-8.0) Ur Specific [place] (1.001-1.035) Urine Protein (Negative) Urine Glucose (UA) (Negative) Urine Ketones (Negative) Urine Blood (Negative) Urine Nitrite (Negative) Urine Bilirubin (Negative) Urine Urobilinogen (<2.0) mg/dL Ur Leukocyte Esterase (Negative) - Radiology Data Radiology results: report reviewed (Imaging reviewed as well as report no acute processes identified the patient's x-ray does look consistent with COPD), image reviewed Disposition Clinical Impression: Weakness, Dehydration, Failure to thrive in adult, Lactic acidosis, Frequent falls Disposition: ADMITTED IP TO THIS [facility] Condition: Stable Referrals: [facility],Clinic [Primary Care Provider] - 1-2 days Decision Date: 07/26/22 Decision Time: 12:00
[2022-07-26 10:58] LABS: Lactic Acid, Venous 2.8 mmol/L (0.7-2.0)
[2022-07-26 11:20] LABS: HCT 40.1 % (39.0-53.0); HGB 13.7 gm/dL (13.0-17.5); MCH 31.2 pg (25.0-35.0); MCHC 34.1 g/dL (31.0-37.0); MCV 91.3 fL (80.0-100.0); Mean Platelet Volume 7.7; Platelet Count 163 k/uL (150-450); RBC 4.39 m/uL (4.30-5.90); RDW 14.4 % (11.5-15.5); WBC 8.2 k/uL (3.8-10.6)
[2022-07-26 11:44] LABS: Appearance,Urine Clear (Clear); Bilirubin,Urine Negative (Negative); Blood,Urine Negative (Negative); Color,Urine Yellow; Glucose,Urine (UA) Negative (Negative); Ketones,Urine Trace (Negative); Leukocyte Esterase,Urine Negative (Negative); Nitrite,Urine Negative (Negative); PH, Urine 5.5 (5.0-8.0); Protein,Urine Trace (Negative); Specific Gravity,Urine 1.028 (1.001-1.035); Urobilinogen,Urine <2.0 mg/dL (<2.0)
--- NOTE | 2022-07-26 11:55 | XR ---
EXAMINATION TYPE: XR chest 2V DATE OF EXAM: 07/26/2022 COMPARISON: NONE TECHNIQUE: PA and lateral views submitted. HISTORY: Body ache, weakness and chills FINDINGS: The lungs are clear and there is no pneumothorax, pleural effusion, or focal pneumonia. Hypertrophi c and degenerative change of the spine. There is hyperinflation. Arthropathy of the shoulders. Athero sclerotic change aorta IMPRESSION: 1. No acute process. Correlate for COPD.
[2022-07-26] MEDS ORDERED: NALOXONE 0.4 MG/ML 1 ML VIAL IV PRN (12:46)
[2022-07-26 12:48] LABS: Band Neutrophils % 3 %; Lymphocytes # (M) 0.74 k/uL (1.0-4.8); Monocytes # (M) 0.33 k/uL (0-1.0); Neutrophils % (M) 84 %; Nucleated Red Blood Cells 0 /100 WBC (0-0); Total Cells Counted 100
[2022-07-26] MEDS ORDERED: LACTULOSE 20 GM/30 ML CUP PO PRN (12:48)
[2022-07-26] MEDS ORDERED: HYDROmorphone 1 MG/ML 1 ML SYRINGE IVP STA (12:51)
--- NOTE | 2022-07-26 12:52 | ED ---
Medical Decision Making - Lab Data Result diagrams: 07/26/22 10:24 07/26/22 10:24 Lab Results 07/26/22 07/26/22 07/26/22 Range/Units 10:21 10:24 10:24 WBC 8.2 (3.8-10.6) k/uL RBC 4.39 (4.30-5.90) m/uL Hgb 13.7 (13.0-17.5) gm/dL Hct 40.1 (39.0-53.0) % MCV 91.3 (80.0-100.0) fL MCH 31.2 (25.0-35.0) pg MCHC 34.1 (31.0-37.0) g/dL RDW 14.4 (11.5-15.5) % Plt Count 163 (150-450) k/uL MPV 7.7 Neutrophils % Not Reportable Lymphocytes % Not Reportable Monocytes % Not Reportable Eosinophils % Not Reportable Basophils % Not Reportable Neutrophils # Not Reportable Lymphocytes # Not Reportable Monocytes # Not Reportable Eosinophils # Not Reportable Basophils # Not Reportable Sodium (137-145) mmol/L Potassium (3.5-5.1) mmol/L Chloride (98-107) mmol/L Carbon Dioxide (22-30) mmol/L Anion Gap mmol/L BUN (9-20) mg/dL Creatinine (0.66-1.25) mg/dL Est GFR (CKD-EPI)AfAm (>60 ml/min/1.73 sqM) Est GFR (CKD-EPI)NonAf (>60 ml/min/1.73 sqM) Glucose (74-99) mg/dL POC Glucose (mg/dL) 143 H (70-110) mg/dL POC Glu Order Tracer ID Judson Overton Plasma Lactic Acid Paul (0.7-2.0) mmol/L Calcium (8.4-10.2) mg/dL Magnesium (1.6-2.3) mg/dL Total Bilirubin (0.2-1.3) mg/dL AST (17-59) U/L ALT (4-49) U/L Alkaline Phosphatase (38-126) U/L Ammonia (<30) umol/L Creatine Kinase (55-170) U/L Troponin I (0.000-0.034) ng/mL Total Protein (6.3-8.2) g/dL Albumin (3.5-5.0) g/dL Lipase (23-300) U/L Urine Color Yellow Urine Appearance Clear (Clear) Urine pH 5.5 (5.0-8.0) Ur Specific [place] 1.028 (1.001-1.035) Urine Protein Trace H (Negative) Urine Glucose (UA) Negative (Negative) Urine Ketones Trace H (Negative) Urine Blood Negative (Negative) Urine Nitrite Negative (Negative) Urine Bilirubin Negative (Negative) Urine Urobilinogen <2.0 (<2.0) mg/dL Ur Leukocyte Esterase Negative (Negative) 07/26/22 07/26/22 07/26/22 Range/Units 10:24 10:24 10:24 WBC (3.8-10.6) k/uL RBC (4.30-5.90) m/uL Hgb (13.0-17.5) gm/dL Hct (39.0-53.0) % MCV (80.0-100.0) fL MCH (25.0-35.0) pg MCHC (31.0-37.0) g/dL RDW (11.5-15.5) % Plt Count (150-450) k/uL MPV Neutrophils % Lymphocytes % Monocytes % Eosinophils % Basophils % Neutrophils # Lymphocytes # Monocytes # Eosinophils # Basophils # Sodium 135 L (137-145) mmol/L Potassium 4.1 (3.5-5.1) mmol/L Chloride 102 (98-107) mmol/L Carbon Dioxide 22 (22-30) mmol/L Anion Gap 11 mmol/L BUN 35 H (9-20) mg/dL Creatinine 0.99 (0.66-1.25) mg/dL Est GFR (CKD-EPI)AfAm 83 (>60 ml/min/1.73 sqM) Est GFR (CKD-EPI)NonAf 72 (>60 ml/min/1.73 sqM) Glucose 144 H (74-99) mg/dL POC Glucose (mg/dL) (70-110) mg/dL POC Glu Order Tracer ID Plasma Lactic Acid Paul 2.8 H* (0.7-2.0) mmol/L Calcium 8.8 (8.4-10.2) mg/dL Magnesium 1.9 (1.6-2.3) mg/dL Total Bilirubin 0.8 (0.2-1.3) mg/dL AST 84 H (17-59) U/L ALT 98 H (4-49) U/L Alkaline Phosphatase 61 (38-126) U/L Ammonia <9 (<30) umol/L Creatine Kinase 148 (55-170) U/L Troponin I <0.012 (0.000-0.034) ng/mL Total Protein 6.2 L (6.3-8.2) g/dL Albumin 4.1 (3.5-5.0) g/dL Lipase 86 (23-300) U/L Urine Color Urine Appearance (Clear) Urine pH (5.0-8.0) Ur Specific [place] (1.001-1.035) Urine Protein (Negative) Urine Glucose (UA) (Negative) Urine Ketones (Negative) Urine Blood (Negative) Urine Nitrite (Negative) Urine Bilirubin (Negative) Urine Urobilinogen (<2.0) mg/dL Ur Leukocyte Esterase (Negative) Disposition Clinical Impression: Weakness, Dehydration, Failure to thrive in adult, Lactic acidosis, Frequent falls, Chronic low back pain without sciatica Disposition: ADMITTED IP TO THIS [facility] Condition: Stable Referrals: [facility],Clinic [Primary Care Provider] - 1-2 days
--- NOTE | 2022-07-26 14:32 | P.HPIM ---
History of Present Illness H&P Date: 07/26/22 Chief Complaint: weakness Patient is a 82-year-old male with past medical history of chronic back pain secondary to spinal stenosis status post multiple epidural injections, type 2 diabetes, dyslipidemia, CAD status post stent, hypertension presenting from home with concerns of generalized weakness and failure to thrive. He was recently in the hospital a week ago with excruciating low back pain and fall. He was also complaining of lower extremity weakness during that time. He was discharged with pain control and epidural injection. Since then he claims that he was able to ambulate at home using a walker. He lives alone with his son next-door. His son had noted that he was becoming more immobile over the last week. He was also eating and drinking less. With concerns of not being able to take care of himself, patient's family wanted him to get reevaluated in the hospital. He denies any chest pain, shortness of breath, abdominal pain, bowel or urinary complaints. In the ED, his vital signs were stable. His labs were remarkable for BUN of 35 with a normal creatinine, and lactic acid of 2.8. He also had mild transaminitis. EKG showed sinus bradycardia, chest x-ray showed no acute process. Pertinent positives and negatives as discussed in HPI, a complete review of systems was performed and all other systems are negative. Patient seen and examined at bedside. Vital signs reviewed General: nontoxic, no distress, appears at stated age Derm: warm, dry Head: atraumatic, normocephalic, symmetric Eyes: EOMI, no lid lag, anicteric sclera, pupils equal round reactive to light ENT: Nose and ears atraumatic, no thrush, no pharyngeal erythema Neck: No thyromegaly, trachea midline, supple Mouth: no lip lesion, mucus membranes moist Cardiovascular: S1S2 reg, no murmur, positive posterior tibial pulse bilateral, no edema, capillary refill less than 2 seconds Lungs: clear to auscultation bilateral, no rhonchi, no rales, no wheeze, no accessory muscle use Abdominal: soft, nontender to palpation, no guarding, no appreciable org anomegaly, normal bowel sounds Ext: no gross muscle atrophy, muscle strength muscle strength 4 out of 5 in all 4 extremities, no contractures Neuro: CN II-XII grossly intact, light touch intact all 4 extremities Psych: Alert, oriented, appropriate affect Assessment/Plan: Failure to thrive Dehydration Lactic acidosis Generalized weakness -IV fluids -Trend lactate -PT eval -Patient prefers to go to the longterm -Nutrition consult Transaminitis -Likely in the setting of dehydration Chronic back pain -Pain control Chronic conditions: Diabetes, hyperlipidemia, CAD, hypertension -Continue home meds The patient is admitted with an anticipated less than 2 midnight stay for evaluation of weakness. Surrogate decision-maker: children CODE STATUS: Full code DVT prophylaxis: Lovenox Anticipated discharge date: 07/27/[address]: home vs [facility] A total of 45 minutes was spent on the care of this complex patient more than 50% of the time was spent in counseling and care coordination. Past Medical History Past Medical History: Coronary Artery Disease (CAD), Diabetes Mellitus, GI Bl eed, Hyperlipidemia, Osteoarthritis (OA) Additional Past Medical History / Comment(s): ESSENTIAL TREMORS, GI bleed 10/2017, diverticulitis, gallstones, some loss of use of rt arm, herniated disk, spinal stenosis History of Any Multi-Drug Resistant Organisms: None Reported Past Surgical History: Cholecystectomy Additional Past Surgical History / Comment(s): 3 cardiac stents, surgery on rt arm x 3 -fx as child, left eyelid surgery Past Anesthesia/Blood Transfusion Reactions: No Reported Reaction Date of Last Stent Placement:: 1999 Past Psychological History: Anxiety, Depression, Panic Disorder, Schizophrenia Smoking Status: Current every day smoker Past Alcohol Use History: None Reported Past Drug Use History: None Reported - Past Family History Mother Family Medical History: No Reported History family Family Medical History: Coronary Artery Disease (CAD) Medications and Allergies Home Medications Medication Instructions Recorded Confirmed Type Atorvastatin [Lipitor] 40 mg PO HS 01/01/17 07/26/22 History Aspirin [Adult Low Dose Aspirin EC] 81 mg PO DAILY 05/29/18 07/26/22 History Cholecalciferol [Vitamin D3 (10 400 unit PO DAILY 05/29/18 07/26/22 History Mcg = 400 Iu)] Lidocaine 5% Patch [Lidoderm 5% 1 patch TOPICAL DAILY PRN 04/04/22 07/26/22 History Patch] Propranolol [Inderal] 40 mg PO BID 04/04/22 07/26/22 History methocarbamoL [Robaxin] 500 mg PO BID 04/04/22 07/26/22 History metFORMIN HCL 1,000 mg PO BID 06/30/22 07/26/22 History Insulin Glargine,Hum.rec.anlog 20 unit SQ DAILY@1200 07/04/22 07/26/22 History [Insulin Glargine Solostar] DULoxetine HCL [Cymbalta] 20 mg PO HS 07/17/22 07/26/22 History Folic Acid 1 mg PO DAILY 07/17/22 07/26/22 History Magnesium Oxide [Mag-Ox] 250 mg PO DAILY 07/17/22 07/26/22 History Meloxicam [Mobic] 7.5 mg PO BID 07/17/22 07/26/22 History Insulin Aspart [NovoLOG Flexpen] See Protocol SQ ACHS 07/18/22 07/26/22 History Lactulose 20 gm PO DAILY PRN 07/18/22 07/26/22 History Allergies Allergy/AdvReac Type Severity Reaction Status Date / Time No Known Allergies Allergy Verified 07/26/22 11:52 Physical Exam Vitals: Vital Signs Temp Pulse Resp BP Pulse Ox 07/26/22 13:35 61 16 120/67 95 07/26/22 11:30 62 20 136/68 95 07/26/22 11:00 57 L 19 124/75 95 07/26/22 10:30 58 L 21 117/65 07/26/22 10:09 97.6 F 60 16 117/65 100 Intake and Output 07/25/22 07/26/22 07/26/22 22:59 06:59 14:59 Other: Weight 149.685 kg Results CBC & Chem 7: 07/26/22 10:24 07/26/22 10:24 Labs: Abnormal Lab Results - Last 24 Hours (Table) 07/26/22 07/26/22 07/26/22 Range/Units 10:21 10:24 10:24 Lymphocytes # (Manual) 0.74 L (1.0-4.8) k/uL Sodium (137-145) mmol/L BUN (9-20) mg/dL Glucose (74-99) mg/dL POC Glucose (mg/dL) 143 H (70-110) mg/dL Plasma Lactic Acid Paul (0.7-2.0) mmol/L AST (17-59) U/L ALT (4-49) U/L Total Protein (6.3-8.2) g/dL Urine Protein Trace H (Negative) Urine Ketones Trace H (Negative) 07/26/22 07/26/22 Range/Units 10:24 10:24 Lymphocytes # (Manual) (1.0-4.8) k/uL Sodium 135 L (137-145) mmol/L BUN 35 H (9-20) mg/dL Glucose 144 H (74-99) mg/dL POC Glucose (mg/dL) (70-110) mg/dL Plasma Lactic Acid Paul 2.8 H* (0.7-2.0) mmol/L AST 84 H (17-59) U/L ALT 98 H (4-49) U/L Total Protein 6.2 L (6.3-8.2) g/dL Urine Protein (Negative) Urine Ketones (Negative)
--- NOTE | 2022-07-26 15:36 | P.PAINPG ---
Objective - Vital Signs Vital signs: Vital Signs Temp 97.6 F 07/26/22 10:09 Pulse 61 07/26/22 13:35 Resp 16 07/26/22 13:35 BP 120/67 07/26/22 13:35 Pulse Ox 95 07/26/22 13:35 FiO2 Intake & Output 07/25/22 07/26/22 07/26/22 18:59 06:59 18:59 Weight 149.685 kg - Labs CBC & Chem 7: 07/26/22 10:24 07/26/22 10:24 Labs: Abnormal Lab Results - Last 24 Hours (Table) 07/26/22 07/26/22 07/26/22 Range/Units 10:21 10:24 10:24 Lymphocytes # (Manual) 0.74 L (1.0-4.8) k/uL Sodium (137-145) mmol/L BUN (9-20) mg/dL Glucose (74-99) mg/dL POC Glucose (mg/dL) 143 H (70-110) mg/dL Plasma Lactic Acid Paul (0.7-2.0) mmol/L AST (17-59) U/L ALT (4-49) U/L Total Protein (6.3-8.2) g/dL Urine Protein Trace H (Negative) Urine Ketones Trace H (Negative) 07/26/22 07/26/22 Range/Units 10:24 10:24 Lymphocytes # (Manual) (1.0-4.8) k/uL Sodium 135 L (137-145) mmol/L BUN 35 H (9-20) mg/dL Glucose 144 H (74-99) mg/dL POC Glucose (mg/dL) (70-110) mg/dL Plasma Lactic Acid Paul 2.8 H* (0.7-2.0) mmol/L AST 84 H (17-59) U/L ALT 98 H (4-49) U/L Total Protein 6.2 L (6.3-8.2) g/dL Urine Protein (Negative) Urine Ketones (Negative) PQRS Measure Charge Sheet Comment: HISTORY OF PRESENT ILLNESS: 82 yr old inpatient male w at side presents today w severe and chronic LBP secondary to DDD, spondylosis and facet arthropathy without myelopathy for evaluation. Patient states he has had a LESI in February 2022 and two more LESIs in the last 4 weeks but continues to have intractable pain and BLE weakness. His pain level is 10/10 but was given Dilaudid in the ER, reducing his pain to a 5/10 currently. He has fallen multiple times, including today, hence the ER visit/ admission. He also states he has weakness holding his stool, that when the urge presents itself, he must colon to the toilet or a fecal accident will oc cur. Per at side, what has helped w pain in the past is Dilaudid IV. Pain has no know provocative factors as it is constant, achy/throbbing/sore in character w shooting pain & weakness down the BLEs. PMH: CAD, Diabetes Mellitus, GERD, Hyperlipidemia, OA, Benign Essential Tremors, MDD/ Anxiety, Panic Disorder, Schizophrenia PSH: Cholecystectomy, Cardiac Stents x3 (1999), RUE surgery s/p childhood fracture, L eyelid surgery SH: Daily tobacco use, No ETOH abuse, No illicit drug use. and lives w spouse. FH: Mo- No Reported History. Family history of CAD All: NKDA Meds: See list REVIEW OF ORGAN SYSTEMS: CONSTITUTIONAL: No fevers or chills. No recent weight lo ss. NEUROLOGICAL: + numbness and tingling along the distal extremities. No seizure disorders or headaches. MUSCULOSKELETAL: + pain PSYCHIATRIC: Denies current depression or suicidal thoughts. Physical Examinations : Constitutional : Cooperative , not in acute distress . Neurologic : Cranial nerve II to XII intact. No focal neurological deficits. Psychiatric : alert & oriented x 3. Matching mood & appropriate affect. Judgment & insight intact. Musculoskeletal : Cervical Spine Motor strength in the deltoid and biceps: Normal right side. Normal Left side Motor strength biceps and the wrist e xtensors: Normal right side . Normal left side Motor strength in the triceps muscle: Normal right side. Normal left side Deep tendon reflexes: Normal at the biceps. Normal at Brachioradialis. Normal at triceps Vertebral body tenderness to deep palpation over Cervical facet loading test: positive bilaterally Spurling test: positive bilaterally Neck distraction test: positive bilaterally [place] sign: positive bilaterally Lumbar spine Motor strength lower extremities ,thigh and legs 5/5 Right side , 5/5 Left side Deep tendon reflexes : Normal Knee Jerk. Normal Ankle Jerk Vertebral body tenderness over L3, L4, L5 Lumbar facet Loading Test: positive Right / positive Left Range of motion of the lumbar spine Flexion 30 degrees, extension 10 degrees Straight Leg Raise test: Left/ Right positive at degree Brigette test: positive right / positive left. Severe tenderness over the Sacroiliac joint on the Right / Left sides Gaenslen test: positive bilaterally Seated flexion test: positive bilaterally. Sacral spine : Severe tenderness over the Sacroiliac joint: right side / left side Range of motion: Flexion of the lumbar spine <60 degrees Range of motion: Extension of the lumbar spine <20 degrees Gaenslen's Test positive Marvel's Test positive Brigette test: positive right side / left side Thigh Thrust Test Sacral Thrust Test Assessment/ Plan : Lumbar DDD, Lumbar spondylosis, Lumbar stenosis Recommendation of medication management, Dilaudid 1mg IVP q3h prn pain. Risks, benefits of procedure discussed and patient verbalized understanding. Recommendation of consultation w Orthopedic Surgeon. Pt stated he is established w Dr Evangelista and had an up coming appt w him on SunJul 28. All questions answered. I have spent greater than 30 minutes on patient care today. Dr Cochran was available by phone for the evaluation of this patient. The time was used to review the medical records including relevant urine studies and Prescription history (MAPs), review of the available imaging, evaluation and examination of the patient, coordination of care with the medical staff and if applicable referring physicians, as well as creation of the medical record - Pain Location Back Non-Pharmacological Interventions: Darkened Room, Distraction PQRS Narrative: Smoking Status Current every day smoker Do You Want the Pneumonia Vaccine Up to Date Vaccine AT THIS TIME? Blood Pressure 120/67 Pain Intensity [Back] 2 Pain Intensity 8 Pain Scale Used Numeric (1 - 10) Scale Used Numeric (1 - 10) Hx Alcohol Use (MH) No Home Medications: Ambulatory Orders Atorvastatin [Lipitor] 40 mg PO HS 01/01/17 Aspirin [Adult Low Dose Aspirin EC] 81 mg PO DAILY 05/29/18 Cholecalciferol [Vitamin D3 (10 Mcg = 400 Iu)] 400 unit PO DAILY 05/29/18 Lidocaine 5% Patch [Lidoderm 5% Patch] 1 patch TOPICAL DAILY PRN 04/04/22 Propranolol [Inderal] 40 mg PO BID 04/04/22 methocarbamoL [Robaxin] 500 mg PO BID 04/04/22 metFORMIN HCL 1,000 mg PO BID 06/30/22 Insulin Glargine,Hum.rec.anlog [Insulin Glargine Solostar] 20 unit SQ DAILY@1200 07/04/22 DULoxetine HCL [Cymbalta] 20 mg PO HS 07/17/22 Folic Acid 1 mg PO DAILY 07/17/22 Magnesium Oxide [Mag-Ox] 250 mg PO DAILY 07/17/22 Meloxicam [Mobic] 7.5 mg PO BID 07/17/22 Insulin Aspart [NovoLOG Flexpen] See Protocol SQ ACHS 07/18/22 Lactulose 20 gm PO DAILY PRN 07/18/22 Controlled Substance Measures - Controlled Substance Measures Is patient prescribed a controlled substance at discharge?: No
[2022-07-26 16:57] LABS: Glucose,Whole Blood 96 mg/dL (70-110)
[2022-07-26] MEDS: metFORMIN 500 MG TAB PO SCH (17:53)
[2022-07-26] MEDS: HYDROmorphone 2 MG TAB PO PRN (19:17)
[2022-07-26] MEDS: ACETAMINOPHEN TAB 325 MG TAB PO PRN (19:17)
[2022-07-26] MEDS: ATORVASTATIN 40 MG TAB PO SCH (19:17)
[2022-07-26] MEDS: MELOXICAM 7.5 MG TAB PO SCH (19:17)
[2022-07-26 20:43] LABS: Glucose,Whole Blood 155 mg/dL (70-110)
[2022-07-26] MEDS ORDERED: MORPHINE SULFATE 2 MG/ML SYRINGE IVP STA (21:02)
[2022-07-26] MEDS: DULoxetine HCL 20 MG CAPSULE.DR PO SCH (21:37)
[2022-07-26] MEDS: methocarbamoL 500 MG TAB PO SCH (21:37)
[2022-07-26] MEDS: PROPRANOLOL 40 MG TAB PO SCH (21:37)
[2022-07-27] MEDS: ACETAMINOPHEN TAB 325 MG TAB PO PRN (05:54)
[2022-07-27] MEDS: HYDROmorphone 2 MG TAB PO PRN ×4 (05:54→21:24)
[2022-07-27 07:11] LABS: Glucose,Whole Blood 117 mg/dL (70-110)
[2022-07-27] MEDS ORDERED: PANTOPRAZOLE 40 MG/10 ML VIAL IV SCH (09:00)
[2022-07-27] MEDS: MELOXICAM 7.5 MG TAB PO SCH ×2 (09:09→21:07)
[2022-07-27] MEDS: FOLIC ACID 1 MG TAB PO SCH (09:09)
[2022-07-27] MEDS: MAGNESIUM OXIDE 400 MG TAB PO SCH (09:09)
[2022-07-27] MEDS: ASPIRIN 81 MG PO SCH (09:09)
[2022-07-27] MEDS: metFORMIN 500 MG TAB PO SCH ×2 (09:09→16:52)
[2022-07-27] MEDS: PROPRANOLOL 40 MG TAB PO SCH ×2 (09:10→21:07)
[2022-07-27] MEDS: methocarbamoL 500 MG TAB PO SCH ×2 (09:10→21:07)
[2022-07-27] MEDS: ENOXAPARIN 40 MG/0.4 ML SYRINGE SQ SCH (09:11)
--- NOTE | 2022-07-27 10:58 | P.HPOR ---
History of Present Illness H&P Date: 07/27/22 Chief Complaint: Lower extremity weakness, inability to ambulate, low back pain Patient is a pleasant 82-year-old male who is seen and examined today at bedside. He is known to our service as we counseled that on him inpatient almost 2 weeks ago for similar issues. The patient is known to have severe spinal stenosis L2-3 and L3 4 and L4 5. He has lower extremity radiculopathy and some lower extremity weakness. He has been undergoing interventional pain management with epidural steroid injections and aggressive conservative care. Patient says that he is having great difficulty with any sort of mobilization. He cannot get up and walk on his own without falling. He has had a number of falls at home. She denies any other injuries. He says the pain is primarily at his legs with weakness at his legs worse on the right than the left. He has some pain in his lower back. He denies worsening with coughing or sneezing. He denies any chest pain or shortness of breath. Denies any abdominal changes. He denies any changes in bowel bladder function. He has had epidural steroid injections. At first he thought the injections were giving him some relief and is able to move around however those only lasted for a few days and he feels that the last injection did not give him any relief. He has not been doing any formal physical therapy at home. He is having great difficulty taking care of himself at home and presented somewhat dehydrated and malnourished. His daughter is with him at bedside hand helps with history. Review of Systems As per HPI. He denies any weakness in his lower extremity splint he has been having chronic weakness at his right lower extremity compared to his left. He denies changes in bowel bladder function. Denies any nausea vomiting. Denies any abdominal pain chest pain or shortness of breath denies any new injuries Past Medical History Past Medical History: Coronary Artery Disease (CAD), Diabetes Mellitus, GI Bleed, Hyperlipidemia, Osteoarthritis (OA) Additional Past Medical History / Comment(s): ESSENTIAL TREMORS, GI bleed , diverticulitis, gallstones, some loss of use of rt arm, herniated disk, spinal stenosis History of Any Multi-Drug Resistant Organisms: None Reported Past Surgical History: Cholecystectomy Additional Past Surgical History / Comment(s): 3 cardiac stents, surgery on rt arm x 3 -fx as child, left eyelid surgery Past Anesthesia/Blood Transfusion Reactions: No Reported Reaction Date of Last Stent Placement:: 1999 Past Psychological History: Anxiety, Depression, Panic Disorder, Schizophrenia Smoking Status: Current every day smoker Past Alcohol Use History: None Reported Additional Past Alcohol Use History / Comment(s): SMOKES 1/2 PPD, SINCE AGE 20 Past Drug Use History: None Reported - Past Family History Mother Family Medical History: No Reported History family Family Medical History: Coronary Artery Disease (CAD) Medications and Allergies Home Medications Medication Instructions Recorded Confirmed Type Atorvastatin [Lipitor] 40 mg PO HS 01/01/17 07/26/22 History Aspirin [Adult Low Dose Aspirin EC] 81 mg PO DAILY 05/29/18 07/26/22 History Cholecalciferol [Vitamin D3 (10 400 unit PO DAILY 05/29/18 07/26/22 History Mcg = 400 Iu)] Lidocaine 5% Patch [Lidoderm 5% 1 patch TOPICAL DAILY PRN 04/04/22 07/26/22 History Patch] Propranolol [Inderal] 40 mg PO BID 04/04/22 07/26/22 History methocarbamoL [Robaxin] 500 mg PO BID 04/04/22 07/26/22 History metFORMIN HCL 1,000 mg PO BID 06/30/22 07/26/22 History Insulin Glargine,Hum.rec.anlog 20 unit SQ DAILY@1200 07/04/22 07/26/22 History [Insulin Glargine Solostar] DULoxetine HCL [Cymbalta] 20 mg PO HS 07/17/22 07/26/22 History Folic Acid 1 mg PO DAILY 07/17/22 07/26/22 History Magnesium Oxide [Mag-Ox] 250 mg PO DAILY 07/17/22 07/26/22 History Meloxicam [Mobic] 7.5 mg PO BID 07/17/22 07/26/22 History Insulin Aspart [NovoLOG Flexpen] See Protocol SQ ACHS 07/18/22 07/26/22 History Lactulose 20 gm PO DAILY PRN 07/18/22 07/26/22 History Allergies Allergy/AdvReac Type Severity Reaction Status Date / Time No Known Allergies Allergy Verified 07/26/22 11:52 Physical Examination Osteopathic Statement: *. No significant issues noted on an osteopathic structural exam other than those noted in the History and Physical/Consult. - L Spine: dermatomal strength & reflexes bilateral Strength: hip flexion: 4/5 (His right lower extremity he has 4 out of 5 hip flexion and knee extension. He has 3+ to 5 dorsiflexion of the right. There is no pain with internal extra rotation of his hips. His thighs and calves soft nontender. He has some tenderness at his lower back the paravertebral spasm.) Results - Labs Labs: Abnormal Lab Results - Last 24 Hours (Table) 07/26/22 07/26/22 07/26/22 Range/Units 10:24 10:24 10:24 Lymphocytes # (Manual) 0.74 L (1.0-4.8) k/uL Sodium 135 L (137-145) mmol/L BUN 35 H (9-20) mg/dL Glucose 144 H (74-99) mg/dL POC Glucose (mg/dL) (70-110) mg/dL Plasma Lactic Acid Paul (0.7-2.0) mmol/L AST 84 H (17-59) U/L ALT 98 H (4-49) U/L Total Protein 6.2 L (6.3-8.2) g/dL Urine Protein Trace H (Negative) Urine Ketones Trace H (Negative) 07/26/22 07/26/22 07/27/22 Range/Units 10:24 20:41 07:09 Lymphocytes # (Manual) (1.0-4.8) k/uL Sodium (137-145) mmol/L BUN (9-20) mg/dL Glucose (74-99) mg/dL POC Glucose (mg/dL) 155 H 117 H (70-110) mg/dL Plasma Lactic Acid Paul 2.8 H* (0.7-2.0) mmol/L AST (17-59) U/L ALT (4-49) U/L Total Protein (6.3-8.2) g/dL Urine Protein (Negative) Urine Ketones (Negative) H & H 07/26/22 Range/Units 10:24 Hgb 13.7 (13.0-17.5) gm/dL Hct 40.1 (39.0-53.0) % Result Diagrams: 07/26/22 10:24 07/26/22 10:24 - Diagnostic results Lumbar MRI with/without contrast: report reviewed, image reviewed (There is an MRI of his lumbar spine from March 2022 which shows severe spinal stenosis L2-3 and severe spinal stenosis L3 4 and L4 5 the worst being at L2-3. There is no fracture.) Assessment and Plan Assessment: Severe spinal stenosis L2-3 L3 4 L4 5 Lower extremity radiculopathy Neurogenic claudication Lower extremity weakness worse on the right and left Inability to ambulate Multiple falls Minimal response to conservative care and interventional pain management Plan: Severe spinal stenosis L2-3 L3 4 L4 5 Lower extremity radiculopathy Neurogenic claudication Lower extremity weakness worse on the right and left Inability to ambulate Multiple falls Minimal response to conservative care and interventional pain management The patient's primary issue stem from his severe spinal stenosis at L2-3 L3 4 and L4 5. We again discussed the issues of his lumbar spine and his lower extremities and his inability to ambulate. He is not having good response with interventional pain management. I appreciate their note on this visit. We discussed at length possibly surgical intervention. He would be a candidate for decompression laminectomy L2-3 and L3 4 L4 5 versus the possibility of decompression with fusion at those levels. Given his age and somewhat frail status I think that decompression alone would be his best option. We explained to them that the surgery would likely be approximately 2 hours and would be somewhat slow recovery given his age and overall health status. This would p otentially help the feelings in his legs and could give him some improvement in his lower extremity function and possible return to some strength. It is difficult to predict how much this can improve his strength and his lower extremities but he has not had any response with the other conservative management. He does not feel he has maximized his physical therapy but feels that he could have some benefit with inpatient longterm and regular physical therapy with this. He is hopeful to avoid surgical intervention and I think he can try to continue with conservative care. His daughter would hope that he could avoid surgery as well and would hope that he continues with conservative management with longterm and physical therapy. He is hoping to arrange for longterm and regular therapy. If this is not making benefit he could consider surgical intervention as described above. He would not like to plan surgery on this admission, and chooses to continue with conservative care. Time with Patient: Greater than 30
[2022-07-27] MEDS ORDERED: SALINE NASAL GEL 14.1 GM TUBE NASAL PRN (11:31)
[2022-07-27 12:08] LABS: Glucose,Whole Blood 133 mg/dL (70-110)
[2022-07-27] MEDS: INSULIN DETEMIR (LEVEMIR) 100 UNIT/ML SYR SQ SCH (12:18)
[2022-07-27] MEDS: CHOLECALCIFEROL 10 MCG (400 IU) TABLET PO SCH (12:18)
--- NOTE | 2022-07-27 13:03 | P.PN ---
Subjective Progress Note Date: 07/27/22 Principal diagnosis: failure to thrive Hospital Course: Patient is a 82-year-old male with past medical history of chronic back pain secondary to spinal stenosis status post multiple epidural injections, type 2 diabetes, dyslipidemia, CAD status post stent, hypertension presenting from home with concerns of generalized weakness and failure to thrive. Orthopedics and pain management consulted. Subjective: She is seen and examined at bedside. No acute events overnight. He continues to have pain in his back. He is complaining about nasal stuffiness from recent fall. He denies any chest pain, shortness of breath, abdominal pain, urinary or bowel complaints. Pertinent positives and negatives as discussed above, a complete review of systems was performed and all other systems are negative. Vitals Signs Reviewed. General: nontoxic, no distress, appears at stated age Derm: warm, dry Head: atraumatic, normocephalic, symmetric Eyes: EOMI, no lid lag, anicteric sclera, pupils equal round reactive to light ENT: Nose and ears atraumatic, no thrush, no pharyngeal erythema Neck: No thyromegaly, trachea midline, supple Mouth: no lip lesion, mucus membranes moist Cardiovascular: S1S2 reg, no murmur, no edema, capillary refill less than 2 seconds Lungs: clear to auscultation bilateral, no rhonchi, no rales, no wheeze, no accessory muscle use Abdominal: soft, nontender to palpation, no guarding, no appreciable organomegaly, normal bowel sounds Ext: no gross muscle atrophy, muscle strength muscle strength 4 out of 5 in all 4 extremities, no contractures Neuro: CN II-XII grossly intact, light touch intact all 4 extremities Psych: Alert, oriented, appropriate affect Assessment and Plan: Failure to thrive Dehydration Lactic acidosis - resolved Generalized weakness -IV fluids -PT -patient will likely need rehab -Nutrition consult Chronic back pain -Severe spinal stenosis, lumbar -Lower extremity radiculopathy -Evaluated by orthopedics -Patient does not want surgery at the moment -Continue conservative therapy -Pain control Transaminitis -Likely in the setting of dehydration Chronic conditions: Diabetes, hyperlipidemia, CAD, hypertension -Continue home meds DVT ppx: Lovenox Code status: Full code Anticipated discharge place: Rehab Anticipated discharge time: Tomorrow Objective - Vital Signs Vital signs: Vital Signs Temp 97.6 F 07/27/22 08:00 Pulse 53 L 07/27/22 08:00 Resp 18 07/27/22 08:00 BP 127/71 07/27/22 08:00 Pulse Ox 94 L 07/27/22 08:00 FiO2 Intake & Output 07/26/22 07/27/22 07/27/22 18:59 06:59 18:59 Intake Total 520 Output Total 500 150 Balance 20 -150 Weight 149.685 kg Intake: Intake, IV Titration 520 Amount Sodium Chloride 0.9% 1, 520 000 ml @ 130 mls/hr IV . [id number] STA Rx#:[id number] Output: Urine 500 150 Other: # Voids 1 - Labs CBC & Chem 7: 07/26/22 10:24 07/26/22 10:24 Labs: Abnormal Lab Results - Last 24 Hours (Table) 07/26/22 07/27/22 07/27/22 Range/Units 20:41 07:09 12:06 POC Glucose (mg/dL) 155 H 117 H 133 H (70-110) mg/dL
[2022-07-27 14:33] VITALS: BMI 26.8
[2022-07-27 16:43] LABS: Glucose,Whole Blood 167 mg/dL (70-110)
[2022-07-27 20:56] LABS: Glucose,Whole Blood 124 mg/dL (70-110)
[2022-07-27] MEDS: SENNOSIDES-DOCUSATE SODIUM 1 EACH TAB PO SCH (21:07)
[2022-07-27] MEDS: DULoxetine HCL 20 MG CAPSULE.DR PO SCH (21:07)
[2022-07-27] MEDS: ATORVASTATIN 40 MG TAB PO SCH (21:07)
[2022-07-28] MEDS: HYDROmorphone 2 MG TAB PO PRN ×3 (02:27→20:28)
[2022-07-28 06:57] LABS: Glucose,Whole Blood 99 mg/dL (70-110)
[2022-07-28] MEDS: ENOXAPARIN 40 MG/0.4 ML SYRINGE SQ SCH (08:00)
[2022-07-28] MEDS: MAGNESIUM OXIDE 400 MG TAB PO SCH (08:01)
[2022-07-28] MEDS: MELOXICAM 7.5 MG TAB PO SCH ×2 (08:01→20:26)
[2022-07-28] MEDS: PANTOPRAZOLE 40 MG TABLET PO SCH (08:01)
[2022-07-28] MEDS: PROPRANOLOL 40 MG TAB PO SCH ×2 (08:01→20:26)
[2022-07-28] MEDS: CHOLECALCIFEROL 10 MCG (400 IU) TABLET PO SCH (08:01)
[2022-07-28] MEDS: ASPIRIN 81 MG PO SCH (08:01)
[2022-07-28] MEDS: methocarbamoL 500 MG TAB PO SCH ×2 (08:01→20:26)
[2022-07-28] MEDS: FOLIC ACID 1 MG TAB PO SCH (08:01)
[2022-07-28] MEDS: metFORMIN 500 MG TAB PO SCH ×2 (08:03→18:21)
[2022-07-28 12:02] LABS: Glucose,Whole Blood 125 mg/dL (70-110)
--- NOTE | 2022-07-28 12:22 | P.PN ---
Subjective Progress Note Date: 07/28/22 Principal diagnosis: failure to thrive Hospital Course: Patient is a 82-year-old male with past medical history of chronic back pain secondary to spinal stenosis status post multiple epidural injections, type 2 diabetes, dyslipidemia, CAD status post stent, hypertension presenting from home with concerns of generalized weakness and failure to thrive. Orthopedics and pain management consulted. Patient wants to try conservative management. Pending SO[facility] discharge. Subjective: She is seen and examined at bedside. No acute events overnight. He continues to have pain in his back. Continues to have nasal stuffiness, will try nasal saline today. He denies any chest pain, shortness of breath, abdominal pain, urinary or bowel complaints. Pertinent positives and negatives as discussed above, a complete review of systems was performed and all other systems are negative. Vitals Signs Reviewed. General: nontoxic, no distress, appears at stated age Derm: warm, dry Head: atraumatic, normocephalic, symmetric Eyes: EOMI, no lid lag, anicteric sclera, pupils equal round reactive to light ENT: Nose and ears atraumatic, no thrush, no pharyngeal erythema Neck: No thyromegaly, trachea midline, supple Mouth: no lip lesion, mucus membranes moist Cardiovascular: S1S2 reg, no murmur, no edema, capillary refill less than 2 seconds Lungs: clear to auscultation bilateral, no rhonchi, no rales, no wheeze, no accessory muscle use Abdominal: soft, nontender to palpation, no guarding, no appreciable organomegaly, normal bowel sounds Ext: no gross muscle atrophy, muscle strength muscle strength 4 out of 5 in all 4 extremities, no contractures Neuro: CN II-XII grossly intact, light touch intact all 4 extremities Psych: Alert, oriented, appropriate affect Assessment and Plan: Failure to thrive Dehydration Lactic acidosis - resolved Generalized weakness -Oral fluids -PT -patient will likely need rehab -Nutrition consult - on ensure supplements TID Chronic back pain -Severe spinal stenosis, lumbar -Lower extremity radiculopathy -Evaluated by orthopedics -Patient does not want surgery at the moment -Continue conservative therapy -Pain control Transaminitis -Likely in the setting of dehydration Chronic conditions: Diabetes, hyperlipidemia, CAD, hypertension -Continue home meds DVT ppx: Lovenox Code status: Full code Anticipated discharge place: Rehab at [facility] Anticipated discharge time: pending [facility] Objective - Vital Signs Vital signs: Vital Signs Temp 99.1 F 07/28/22 08:00 Pulse 68 07/28/22 08:00 Resp 18 07/28/22 08:00 BP 142/80 07/28/22 08:00 Pulse Ox 93 L 07/28/22 08:00 FiO2 Intake & Output 07/27/22 07/28/22 07/28/22 18:59 06:59 18:59 Output Total 600 1025 250 Balance -600 -1025 -250 Weight 100 kg Output: Urine 600 1025 250 Other: # Voids 1 1 # Bowel Movements 1 1 - Labs CBC & Chem 7: 07/26/22 10:24 07/26/22 10:24 Labs: Abnormal Lab Results - Last 24 Hours (Table) 07/27/22 07/27/22 07/28/22 Range/Units 16:42 20:53 12:00 POC Glucose (mg/dL) 167 H 124 H 125 H (70-110) mg/dL
[2022-07-28] MEDS: INSULIN DETEMIR (LEVEMIR) 100 UNIT/ML SYR SQ SCH (12:39)
[2022-07-28 16:58] LABS: Glucose,Whole Blood 140 mg/dL (70-110)
[2022-07-28] MEDS: ATORVASTATIN 40 MG TAB PO SCH (20:26)
[2022-07-28] MEDS: DULoxetine HCL 20 MG CAPSULE.DR PO SCH (20:26)
[2022-07-28] MEDS: SENNOSIDES-DOCUSATE SODIUM 1 EACH TAB PO SCH (20:26)
[2022-07-28 20:56] LABS: Glucose,Whole Blood 172 mg/dL (70-110)
[2022-07-29] MEDS: HYDROmorphone 2 MG TAB PO PRN ×5 (00:30→18:30)
[2022-07-29 07:24] LABS: Glucose,Whole Blood 99 mg/dL (70-110)
--- NOTE | 2022-07-29 07:50 | P.PN ---
Progress Note - Text Progress Note Date: 07/29/22 The patient is seen and examined at bedside today. He says there is no real change in his overall function. He says significant pain in his legs particularly on the right more than left. He is hopeful to continue with rehabilitation and physical therapy. On exam he is afebrile. He is tolerating his diet and eating his breakfast this morning without any problems. Abdomen soft nontender. He has sustained dorsal flexion plantarflexion and EHL intact. He has some overall weakness at this right lower extremity which has been stable for him. Assessment and plan Severe spinal stenosis L2-3 L3 4 L4 5 Lower extremity radiculopathy with neurogenic claudication Lower extremity weakness The patient has significant changes at his lumbar spine with spinal stenosis and lower extremity issues with pain and weakness. He has been through extensive conservative treatment but has had minimal improvement. He is continue to try to progress with physical therapy and he may be making some slow progress with his comfort and mobility. He is hopeful to continue with conservative treatment and physical therapy with assistance of [facility]. I think this is reasonable. He is a candidate for surgical intervention for decompression of his lumbar spine and the possibility of fusion. We again discussed this possibility and headlight to continue with conservative treatment for now. I'll plan to see him back in approximately 2 weeks' time at the office today for recheck evaluation and discuss his options again. Answered his questions best my ability is agreeable. He is planning for transfer as soon as bed is available for [facility].
[2022-07-29] MEDS: PANTOPRAZOLE 40 MG TABLET PO SCH (08:35)
[2022-07-29] MEDS: ENOXAPARIN 40 MG/0.4 ML SYRINGE SQ SCH (08:35)
[2022-07-29] MEDS: MAGNESIUM OXIDE 400 MG TAB PO SCH (08:35)
[2022-07-29] MEDS: FOLIC ACID 1 MG TAB PO SCH (08:35)
[2022-07-29] MEDS: metFORMIN 500 MG TAB PO SCH ×2 (08:37→18:14)
[2022-07-29] MEDS: MELOXICAM 7.5 MG TAB PO SCH ×2 (08:37→22:24)
[2022-07-29] MEDS: ASPIRIN 81 MG PO SCH (08:37)
[2022-07-29] MEDS: methocarbamoL 500 MG TAB PO SCH ×2 (08:38→22:25)
[2022-07-29] MEDS: PROPRANOLOL 40 MG TAB PO SCH ×2 (08:38→22:25)
[2022-07-29] MEDS: CHOLECALCIFEROL 10 MCG (400 IU) TABLET PO SCH (08:38)
[2022-07-29 11:04] LABS: Glucose,Whole Blood 151 mg/dL (70-110)
--- NOTE | 2022-07-29 11:22 | P.PN ---
Subjective Progress Note Date: 07/29/22 Principal diagnosis: failure to thrive Hospital Course: Patient is a 82-year-old male with past medical history of chronic back pain secondary to spinal stenosis status post multiple epidural injections, type 2 diabetes, dyslipidemia, CAD status post stent, hypertension presenting from home with concerns of generalized weakness and failure to thrive. Orthopedics and pain management consulted. Patient wants to try conservative management. Pending SOFY discharge. Subjective: She is seen and examined at bedside. No acute events overnight. He continues to have pain in his back. He denies any chest pain, shortness of breath, abdominal pain, urinary or bowel complaints. Pertinent positives and negatives as discussed above, a complete review of systems was performed and all other systems are negative. Vitals Signs Reviewed. General: nontoxic, no distress, appears at stated age Derm: warm, dry Head: atraumatic, normocephalic, symmetric Eyes: EOMI, no lid lag, anicteric sclera, pupils equal round reactive to light ENT: Nose and ears atraumatic, no thrush, no pharyngeal erythema Neck: No thyromegaly, trachea midline, supple Mouth: no lip lesion, mucus membranes moist Cardiovascular: S1S2 reg, no murmur, no edema, capillary refill less than 2 se conds Lungs: clear to auscultation bilateral, no rhonchi, no rales, no wheeze, no accessory muscle use Abdominal: soft, nontender to palpation, no guarding, no appreciable organomegaly, normal bowel sounds Ext: no gross muscle atrophy, muscle strength muscle strength 4 out of 5 in all 4 extremities, no contractures Neuro: CN II-XII grossly intact, light touch intact all 4 extremities Psych: Alert, oriented, appropriate affect Assessment and Plan: Failure to thrive Dehydration Lactic acidosis - resolved Generalized weakness -Oral fluids -PT -patient will likely need rehab -Nutrition consult - on ensure supplements TID Chronic back pain -Severe spinal stenosis, lumbar -Lower extremity radiculopathy -Evaluated by orthopedics -Patient does not want surgery at the moment -Continue conservative therapy -Pain control Transaminitis -Likely in the setting of dehydration Chronic conditions: Diabetes, hyperlipidemia, CAD, hypertension -Continue home meds DVT ppx: Lovenox Code status: Full code Anticipated discharge place: Rehab at [facility] Anticipated discharge time: pending [facility] auth Objective - Vital Signs Vital signs: Vital Signs Temp 98.2 F 07/29/22 08:00 Pulse 58 L 07/29/22 08:00 Resp 17 07/29/22 08:00 BP 149/88 07/29/22 08:00 Pulse Ox 95 07/29/22 08:00 FiO2 Intake & Output 07/28/22 07/29/22 07/29/22 18:59 06:59 18:59 Intake Total 240 Output Total 250 450 Balance -250 -450 240 Intake: Oral 240 Output: Urine 250 450 Other: # Voids 5 # Bowel Movements 1 - Labs CBC & Chem 7: 07/26/22 10:24 07/26/22 10:24 Labs: Abnormal Lab Results - Last 24 Hours (Table) 07/28/22 07/28/22 07/28/22 Range/Units 12:00 16:56 20:54 POC Glucose (mg/dL) 125 H 140 H 172 H (70-110) mg/dL 07/29/22 Range/Units 11:02 POC Glucose (mg/dL) 151 H (70-110) mg/dL
[2022-07-29] MEDS: INSULIN DETEMIR (LEVEMIR) 100 UNIT/ML SYR SQ SCH (12:51)
[2022-07-29] MEDS: LIDOCAINE 5% PATCH TOPICAL PRN (16:09)
[2022-07-29 16:15] LABS: Glucose,Whole Blood 137 mg/dL (70-110)
[2022-07-29] MEDS: SENNOSIDES-DOCUSATE SODIUM 1 EACH TAB PO SCH (22:25)
[2022-07-29] MEDS: ATORVASTATIN 40 MG TAB PO SCH (22:25)
[2022-07-29] MEDS: DULoxetine HCL 20 MG CAPSULE.DR PO SCH (22:26)
[2022-07-30] MEDS: ASPIRIN 81 MG PO SCH (07:05)
[2022-07-30] MEDS: PANTOPRAZOLE 40 MG TABLET PO SCH (07:05)
[2022-07-30] MEDS: metFORMIN 500 MG TAB PO SCH ×2 (07:05→17:32)
[2022-07-30] MEDS: FOLIC ACID 1 MG TAB PO SCH (07:05)
[2022-07-30] MEDS: ENOXAPARIN 40 MG/0.4 ML SYRINGE SQ SCH (07:05)
[2022-07-30] MEDS: MELOXICAM 7.5 MG TAB PO SCH ×2 (07:05→21:28)
[2022-07-30] MEDS: MAGNESIUM OXIDE 400 MG TAB PO SCH (07:05)
[2022-07-30] MEDS: PROPRANOLOL 40 MG TAB PO SCH ×2 (07:06→21:30)
[2022-07-30] MEDS: methocarbamoL 500 MG TAB PO SCH ×2 (07:06→21:29)
[2022-07-30 07:07] LABS: Glucose,Whole Blood 116 mg/dL (70-110)
[2022-07-30] MEDS: CHOLECALCIFEROL 10 MCG (400 IU) TABLET PO SCH (07:07)
[2022-07-30] MEDS: HYDROmorphone 2 MG TAB PO PRN ×3 (08:48→21:39)
[2022-07-30 11:14] LABS: Glucose,Whole Blood 148 mg/dL (70-110)
--- NOTE | 2022-07-30 11:31 | P.PN ---
Subjective Progress Note Date: 07/30/22 Principal diagnosis: failure to thrive Hospital Course: Patient is a 82-year-old male with past medical history of chronic back pain secondary to spinal stenosis status post multiple epidural injections, type 2 diabetes, dyslipidemia, CAD status post stent, hypertension presenting from home with concerns of generalized weakness and failure to thrive. Orthopedics and pain management consulted. Patient wants to try conservative management. Pending SOFY discharge. Subjective: She is seen and examined at bedside. No acute events overnight. He continues to have pain in his back. He denies any chest pain, shortness of breath, abdominal pain, urinary or bowel complaints. Pertinent positives and negatives as discussed above, a complete review of systems was performed and all other systems are negative. Vitals Signs Reviewed. General: nontoxic, no distress, appears at stated age Derm: warm, dry Head: atraumatic, normocephalic, symmetric Eyes: EOMI, no lid lag, anicteric sclera, pupils equal round reactive to light ENT: Nose and ears atraumatic, no thrush, no pharyngeal erythema Neck: No thyromegaly, trachea midline, supple Mouth: no lip lesion, mucus membranes moist Cardiovascular: S1S2 reg, no murmur, no edema, capillary refill less than 2 se conds Lungs: clear to auscultation bilateral, no rhonchi, no rales, no wheeze, no accessory muscle use Abdominal: soft, nontender to palpation, no guarding, no appreciable organomegaly, normal bowel sounds Ext: no gross muscle atrophy, muscle strength muscle strength 4 out of 5 in all 4 extremities, no contractures Neuro: CN II-XII grossly intact, light touch intact all 4 extremities Psych: Alert, oriented, appropriate affect Assessment and Plan: Failure to thrive Dehydration Lactic acidosis - resolved Generalized weakness -Oral fluids -PT -patient will likely need rehab -Nutrition consult - on ensure supplements TID Chronic back pain -Severe spinal stenosis, lumbar -Lower extremity radiculopathy -Evaluated by orthopedics -Patient does not want surgery at the moment -Continue conservative therapy -Pain control Transaminitis -Likely in the setting of dehydration Chronic conditions: Diabetes, hyperlipidemia, CAD, hypertension -Continue home meds DVT ppx: Lovenox Code status: Full code Anticipated discharge place: Rehab at [facility] Anticipated discharge time: pending [facility] auth Objective - Vital Signs Vital signs: Vital Signs Temp 98.0 F 07/30/22 08:00 Pulse 67 07/30/22 07:09 Resp 16 07/30/22 08:00 BP 126/76 07/30/22 07:09 Pulse Ox 91 L 07/30/22 08:00 FiO2 Intake & Output 07/29/22 07/30/22 07/30/22 18:59 06:59 18:59 Intake Total 480 Balance 480 Intake: Oral 480 Other: # Voids 3 # Bowel Movements 1 - Labs CBC & Chem 7: 07/26/22 10:24 07/26/22 10:24 Labs: Abnormal Lab Results - Last 24 Hours (Table) 07/29/22 07/30/22 07/30/22 Range/Units 16:13 07:06 11:12 POC Glucose (mg/dL) 137 H 116 H 148 H (70-110) mg/dL
[2022-07-30] MEDS: INSULIN DETEMIR (LEVEMIR) 100 UNIT/ML SYR SQ SCH (11:43)
[2022-07-30] MEDS: LIDOCAINE 5% PATCH TOPICAL PRN (14:14)
[2022-07-30 16:24] LABS: Glucose,Whole Blood 184 mg/dL (70-110)
[2022-07-30 20:08] LABS: Glucose,Whole Blood 206 mg/dL (70-110)
[2022-07-30] MEDS: SENNOSIDES-DOCUSATE SODIUM 1 EACH TAB PO SCH (21:29)
[2022-07-30] MEDS: ATORVASTATIN 40 MG TAB PO SCH (21:29)
[2022-07-30] MEDS: DULoxetine HCL 20 MG CAPSULE.DR PO SCH (21:29)
[2022-07-31 06:58] LABS: Glucose,Whole Blood 103 mg/dL (70-110)
[2022-07-31 07:13] VITALS: BP 143/77; PULSE 70; TEMP 97.7
[2022-07-31] MEDS: MAGNESIUM OXIDE 400 MG TAB PO SCH (07:13)
[2022-07-31] MEDS: ENOXAPARIN 40 MG/0.4 ML SYRINGE SQ SCH (07:13)
[2022-07-31] MEDS: metFORMIN 500 MG TAB PO SCH (07:13)
[2022-07-31] MEDS: FOLIC ACID 1 MG TAB PO SCH (07:13)
[2022-07-31] MEDS: ASPIRIN 81 MG PO SCH (07:14)
[2022-07-31] MEDS: CHOLECALCIFEROL 10 MCG (400 IU) TABLET PO SCH (07:14)
[2022-07-31] MEDS: MELOXICAM 7.5 MG TAB PO SCH (07:14)
[2022-07-31] MEDS: PANTOPRAZOLE 40 MG TABLET PO SCH (07:14)
[2022-07-31] MEDS: methocarbamoL 500 MG TAB PO SCH (07:15)
[2022-07-31] MEDS: PROPRANOLOL 40 MG TAB PO SCH (07:15)
--- NOTE | 2022-07-31 09:48 | P.PN ---
Subjective Progress Note Date: 07/31/22 Principal diagnosis: failure to thrive Hospital Course: Patient is a 82-year-old male with past medical history of chronic back pain secondary to spinal stenosis status post multiple epidural injections, type 2 diabetes, dyslipidemia, CAD status post stent, hypertension presenting from home with concerns of generalized weakness and failure to thrive. Orthopedics and pain management consulted. Patient wants to try conservative management. Pending SOFY discharge. Subjective: She is seen and examined at bedside. No acute events overnight. He continues to have pain in his back. He denies any chest pain, shortness of breath, abdominal pain, urinary or bowel complaints. Pertinent positives and negatives as discussed above, a complete review of systems was performed and all other systems are negative. Vitals Signs Reviewed. General: nontoxic, no distress, appears at stated age Derm: warm, dry Head: atraumatic, normocephalic, symmetric Eyes: EOMI, no lid lag, anicteric sclera, pupils equal round reactive to light ENT: Nose and ears atraumatic, no thrush, no pharyngeal erythema Neck: No thyromegaly, trachea midline, supple Mouth: no lip lesion, mucus membranes moist Cardiovascular: S1S2 reg, no murmur, no edema, capillary refill less than 2 se conds Lungs: clear to auscultation bilateral, no rhonchi, no rales, no wheeze, no accessory muscle use Abdominal: soft, nontender to palpation, no guarding, no appreciable organomegaly, normal bowel sounds Ext: no gross muscle atrophy, muscle strength muscle strength 4 out of 5 in all 4 extremities, no contractures Neuro: CN II-XII grossly intact, light touch intact all 4 extremities Psych: Alert, oriented, appropriate affect Assessment and Plan: Failure to thrive Dehydration Lactic acidosis - resolved Generalized weakness -Oral fluids -PT -patient will likely need rehab -Nutrition consult - on ensure supplements TID Chronic back pain -Severe spinal stenosis, lumbar -Lower extremity radiculopathy -Evaluated by orthopedics -Patient does not want surgery at the moment -Continue conservative therapy -Pain control Transaminitis -Likely in the setting of dehydration Chronic conditions: Diabetes, hyperlipidemia, CAD, hypertension -Continue home meds DVT ppx: Lovenox Code status: Full code Anticipated discharge place: Rehab at [facility] Anticipated discharge time: pending [facility] auth Objective - Vital Signs Vital signs: Vital Signs Temp 97.7 F 07/31/22 07:12 Pulse 70 07/31/22 07:12 Resp 17 07/31/22 07:12 BP 143/77 07/31/22 07:12 Pulse Ox 97 07/31/22 07:12 FiO2 Intake & Output 07/30/22 07/31/22 07/31/22 18:59 06:59 18:59 Intake Total 120 Output Total 375 Balance 120 -375 Intake: Oral 120 Output: Urine 375 Other: Voiding Method Toilet Toilet Urinal # Voids 5 1 # Bowel Movements 1 - Labs CBC & Chem 7: 07/26/22 10:24 07/26/22 10:24 Labs: Abnormal Lab Results - Last 24 Hours (Table) 07/30/22 07/30/22 07/30/22 Range/Units 11:12 16:23 20:06 POC Glucose (mg/dL) 148 H 184 H 206 H (70-110) mg/dL
[2022-07-31 11:29] LABS: Glucose,Whole Blood 162 mg/dL (70-110)
--- NOTE | 2022-07-31 12:10 | P.DS ---
Providers Date of admission: 07/26/22 12:51 Expected date of discharge: 07/31/22 Attending physician: Calli Stock MD Consults: 07/26/22 15:32 Consult Physician Routine Consulting Provider: Grey Evangelista Consult Reason/Comments: Maximum ESIs Reached Do you want consulting provider notified?: Yes Primary care physician: [facility] Hospital Course: Discharge Diagnosis: Failure to thrive Dehydration Lactic acidosis Generalized weakness Chronic back pain Severe spinal stenosis, lumbar Transaminitis Hospital Course: 82-year-old male with history of chronic back pain secondary to spinal stenosis presented from home with concerns of generalized weakness and failure to thrive. He initially had lactic acidosis and dehydration, improved with IV fluids as well as oral fluids. He was evaluated by physical therapy, and needed subacute rehab. He was seen by pain management as well as orthopedics. Patient does not want to get any surgery at the moment. Would like to continue trying conservative therapy at the moment. Patient to be discharged to subacute rehab. Patient seen and examined at bedside. Vital signs reviewed and stable. General: nontoxic, no distress, appears at stated age Derm: warm, dry Head: atraumatic, normocephalic, symmetric Eyes: EOMI, no lid lag, anicteric sclera, pupils equal round reactive to light ENT: Nose and ears atraumatic, no thrush, no pharyngeal erythema Neck: No thyromegaly, trachea midline, supple Mouth: no lip lesion, mucus membranes moist Cardiovascular: S1S2 reg, no murmur, no edema, capillary refill less than 2 seconds Lungs: clear to auscultation bilateral, no rhonchi, no rales, no wheeze, no accessory muscle use Abdominal: soft, nontender to palpation, no guarding, no appreciable organomegaly, normal bowel sounds Ext: no gross muscle atrophy, muscle strength muscle strength 4 out of 5 in all 4 extremities, no contractures Neuro: CN II-XII grossly intact, light touch intact all 4 extremities Psych: Alert, oriented, appropriate affect A total of 33 minutes of time were spent preparing this complex discharge summary. Patient was discharged on 07/31/22 at 12:04. Patient Condition at Discharge: Stable Plan - Discharge Summary Discharge Rx Participant: No New Discharge Prescriptions: New Saline Nasal Gel [[place] Nasal Gel] 1 applic NASAL Q4HR PRN each PRN Reason: Dry Nasal Passages Sennosides-Docusate Sodium [Senokot-S] 2 each PO HS tab Acetaminophen Tab [Tylenol] 650 mg PO Q6HR PRN tab PRN Reason: Mild Pain Or Fever > 100.5 Continue Atorvastatin [Lipitor] 40 mg PO HS Cholecalciferol [Vitamin D3 (10 Mcg = 400 Iu)] 400 unit PO DAILY Aspirin [Adult Low Dose Aspirin EC] 81 mg PO DAILY Lidocaine 5% Patch [Lidoderm 5% Patch] 1 patch TOPICAL DAILY PRN PRN Reason: Pain methocarbamoL [Robaxin] 500 mg PO BID Propranolol [Inderal] 40 mg PO BID metFORMIN HCL 1,000 mg PO BID Insulin Glargine,Hum.rec.anlog [Insulin Glargine Solostar] 20 unit SQ DAILY@1200 Meloxicam [Mobic] 7.5 mg PO BID Magnesium Oxide [Mag-Ox] 250 mg PO DAILY Insulin Aspart [NovoLOG Flexpen] See Protocol SQ ACHS DULoxetine HCL [Cymbalta] 20 mg PO HS Folic Acid 1 mg PO DAILY Lactulose 20 gm PO DAILY PRN PRN Reason: Constipation Discharge Medication List Atorvastatin [Lipitor] 40 mg PO HS 01/01/17 [History] Aspirin [Adult Low Dose Aspirin EC] 81 mg PO DAILY 05/29/18 [History] Cholecalciferol [Vitamin D3 (10 Mcg = 400 Iu)] 400 unit PO DAILY 05/29/18 [History] Lidocaine 5% Patch [Lidoderm 5% Patch] 1 patch TOPICAL DAILY PRN 04/04/22 [History] Propranolol [Inderal] 40 mg PO BID 04/04/22 [History] methocarbamoL [Robaxin] 500 mg PO BID 04/04/22 [History] metFORMIN HCL 1,000 mg PO BID 06/30/22 [History] Insulin Glargine,Hum.rec.anlog [Insulin Glargine Solostar] 20 unit SQ DAILY@1200 07/04/22 [History] DULoxetine HCL [Cymbalta] 20 mg PO HS 07/17/22 [History] Folic Acid 1 mg PO DAILY 07/17/22 [History] Magnesium Oxide [Mag-Ox] 250 mg PO DAILY 07/17/22 [History] Meloxicam [Mobic] 7.5 mg PO BID 07/17/22 [History] Insulin Aspart [NovoLOG Flexpen] See Protocol SQ ACHS 07/18/22 [History] Lactulose 20 gm PO DAILY PRN 07/18/22 [History] Acetaminophen Tab [Tylenol] 650 mg PO Q6HR PRN tab 07/31/22 [Rx] Saline Nasal Gel [[place] Nasal Gel] 1 applic NASAL Q4HR PRN each 07/31/22 [Rx] Sennosides-Docusate Sodium [Senokot-S] 2 each PO HS tab 07/31/22 [Rx] Follow up Appointment(s)/Referral(s): Grey Evangelista DO [Doctor of Osteopathic Medicine] - 2 Weeks (For severe spinal stenosis L2-3 L3 4 L4 5 with neurogenic claudication and lower extremity weakness) Leora Smith, [NON-STAFF] - As Needed [facility],Clinic [Primary Care Provider] - 1-2 days Activity/Diet/Wound Care/Special Instructions: Please see your PCP in 1 week. Discharge Disposition: TRANSFER TO SNF/ECF
[2022-07-31] MEDS: INSULIN DETEMIR (LEVEMIR) 100 UNIT/ML SYR SQ SCH (13:19)
[2022-07-31] MEDS: HYDROmorphone 2 MG TAB PO PRN (13:40)
[2022-07-31] MEDS: LIDOCAINE 5% PATCH TOPICAL PRN (14:38)
[2022-07-31 14:44] VITALS: RESP 16
== END 2022-07-31 14:56 ==
LOC: EC 10:07 → 4SSUR 12:51
PROVIDERS: ADMIT Family Medicine; ATTEND Family Medicine
DX: E86.0 Dehydration (principal); R62.7 Adult failure to thrive; G89.29 Other chronic pain; R29.6 Repeated falls; E87.20 Acidosis, unspecified; M51.16 Intervertebral disc disorders with radiculopathy, lumbar region; M47.26 Other spondylosis with radiculopathy, lumbar region; M48.062 Spinal stenosis, lumbar region with neurogenic claudication; R74.01 Elevation of levels of liver transaminase levels; E11.9 Type 2 diabetes mellitus without complications; R09.81 Nasal congestion; E78.5 Hyperlipidemia, unspecified; I25.10 Atherosclerotic heart disease of native coronary artery without angina pectoris; I10 Essential (primary) hypertension; G25.0 Essential tremor; F32.9 Major depressive disorder, single episode, unspecified; F20.9 Schizophrenia, unspecified; Z90.49 Acquired absence of other specified parts of digestive tract; F41.0 Panic disorder [episodic paroxysmal anxiety]; F17.210 Nicotine dependence, cigarettes, uncomplicated; Z82.49 Family history of ischemic heart disease and other diseases of the circulatory system; Z95.5 Presence of coronary angioplasty implant and graft; Z79.84 Long term (current) use of oral hypoglycemic drugs; Z79.82 Long term (current) use of aspirin; Z79.4 Long term (current) use of insulin; Z79.899 Other long term (current) drug therapy; Z79.1 Long term (current) use of non-steroidal anti-inflammatories (NSAID)
CPT/HCPCS: 96372 ×5; 96375 ×2; 96374; 99285; 36415; 93005; 97116; 97110; 97162; 97530; 97166; 80053; 82140; 82550; 83605; 83690; 83735; 84484; 85025; 81003; 71046; G0378 ×6; J1650 ×5; J2270; J1170; C9113

== ENCOUNTER 2022-10-05 08:48 | Emergency (ER) | payer OTHER ==
[2022-10-05 08:56] VITALS: RESP 18
[2022-10-05] MEDS ORDERED: SODIUM CHLORIDE 0.9% 500 ML 500 ML IV STA (09:02)
[2022-10-05] MEDS ORDERED: MORPHINE SULFATE 4 MG/ML SYRINGE IV STA (09:02)
[2022-10-05] MEDS ORDERED: LIDOCAINE 5% PATCH TOPICAL STA (09:03)
[2022-10-05 09:23] LABS: Basophils % (A) 1 %; Eosinophils # (A) 0.2 k/uL (0-0.7); Eosinophils % (A) 5 %; HCT 38.5 % (39.0-53.0); HGB 13.5 gm/dL (13.0-17.5); Lymphocytes # (A) 1.3 k/uL (1.0-4.8); Lymphocytes % (A) 25 %; MCH 31.9 pg (25.0-35.0); MCV 91.2 fL (80.0-100.0); Mean Platelet Volume 7.2; Monocytes # (A) 0.4 k/uL (0-1.0); Monocytes % (A) 7 %; Neutrophils # (A) 3.1 k/uL (1.3-7.7); Neutrophils % (A) 61 %; Platelet Count 211 k/uL (150-450); RBC 4.23 m/uL (4.30-5.90); RDW 14.4 % (11.5-15.5); WBC 5.1 k/uL (3.8-10.6)
[2022-10-05 09:33] LABS: ALT 37 U/L (4-49); AST 33 U/L (17-59); African American GFR (CKD) >90 (>60 ml/min/1.73 sqM); Alkaline Phosphatase 70 U/L (38-126); Anion Gap 7 mmol/L; Blood Urea Nitrogen 17 mg/dL (9-20); Calcium 8.9 mg/dL (8.4-10.2); Carbon Dioxide 20 mmol/L (22-30); Chloride 110 mmol/L (98-107); Glucose 99 mg/dL (74-99); Non-African American GFR(CKD) >90 (>60 ml/min/1.73 sqM); Potassium 4.2 mmol/L (3.5-5.1); Sodium 137 mmol/L (137-145); Total Bilirubin 0.7 mg/dL (0.2-1.3); Total Protein 6.3 g/dL (6.3-8.2)
--- NOTE | 2022-10-05 09:46 | XR ---
EXAMINATION TYPE: XR chest 2V DATE OF EXAM: 10/05/2022 COMPARISON: 07/26/22 HISTORY: Shortness of breath TECHNIQUE: Frontal and lateral views of the chest are obtained. FINDINGS: Scattered senescent parenchymal changes noted. No evidence for infiltrate. No evidence for atelectasis. Heart size is stable. Mediastinal structures are stable and grossly unremarkable. No evidence for hilar prominence. Degenerative changes dorsal spine. IMPRESSION: 1. No evidence for acute pulmonary disease.
--- NOTE | 2022-10-05 09:46 | XR ---
EXAMINATION TYPE: XR pelvis AP view DATE OF EXAM: 10/05/2022 COMPARISON: NONE HISTORY: Pain The osseous structures are intact and the joint spaces are preserved. No acute fracture is seen. Vi sualized bowel gas pattern is nonspecific. Arthropathy of the hips noted with diffuse osteopenia. Mu ltiple vascular calcifications. Degenerative change lower lumbar spine. IMPRESSION: 1. Degenerative change lower lumbar spine. 2. 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
--- NOTE | 2022-10-05 09:48 | ED ---
General Adult HPI - General Chief complaint: Back Pain/Injury Stated complaint: back pain Time Seen by Provider: 10/05/22 08:49 Source: patient, EMS, RN notes reviewed, old records reviewed Mode of arrival: EMS Limitations: no limitations - History of Present Illness Initial comments: Patient is an 82-year-old male with past medical history remarkable for chronic back pain, cardiac stents, diabetes essential tremors, not on blood thinners who presents emergency Department complaining of a fall yesterday and now having acute on chronic back pain. States he is having back pain in the mid and lower back. Denies any urinary or bowel incontinence or retention. Endorses chronic weakness in the bilateral lower extremities that is not any worse. Denies any chest pain, shortness breath. States he was urinating and he reached for the wall and missed it and then fell onto his left side. Denies hitting his head or loss of consciousness. Denies any neck pain. Denies any chest pain or shortness of breath. Denies abdominal pain, nausea, vomiting. No other acute complaints at this time. Presents for further evaluation over concern for his flare of back pain. States the fall occurred earlier in the day yesterday with back pain placed at approximately 3 AM this morning. Radiates along his spine. - Related Data Home Medications Medication Instructions Recorded Confirmed Atorvastatin [Lipitor] 40 mg PO HS 01/01/17 07/26/22 Aspirin [Adult Low Dose Aspirin EC] 81 mg PO DAILY 05/29/18 07/26/22 Cholecalciferol [Vitamin D3 (10 400 unit PO DAILY 05/29/18 07/26/22 Mcg = 400 Iu)] Lidocaine 5% Patch [Lidoderm 5% 1 patch TOPICAL DAILY PRN 04/04/22 07/26/22 Patch] Propranolol [Inderal] 40 mg PO BID 04/04/22 07/26/22 methocarbamoL [Robaxin] 500 mg PO BID 04/04/22 07/26/22 metFORMIN HCL 1,000 mg PO BID 06/30/22 07/26/22 Insulin Glargine,Hum.rec.anlog 20 unit SQ DAILY@1200 07/04/22 07/26/22 [Insulin Glargine Solostar] DULoxetine HCL [Cymbalta] 20 mg PO HS 07/17/22 07/26/22 Folic Acid 1 mg PO DAILY 07/17/22 07/26/22 Magnesium Oxide [Mag-Ox] 250 mg PO DAILY 07/17/22 07/26/22 Meloxicam [Mobic] 7.5 mg PO BID 07/17/22 07/26/22 Lactulose 20 gm PO DAILY PRN 07/18/22 07/26/22 Previous Rx's Medication Instructions Recorded Acetaminophen Tab [Tylenol] 650 mg PO Q6HR PRN tab 07/31/22 Saline Nasal Gel [Krypton Nasal Gel] 1 applic NASAL Q4HR PRN each 07/31/22 Sennosides-Docusate Sodium 2 each PO HS tab 07/31/22 [Senokot-S] oxyCODONE HCL 5 mg PO Q6HR PRN #20 tab 07/31/22 Lidocaine 5% Patch [Lidoderm 5% 1 patch TOPICAL DAILY PRN 7 Days 10/05/22 Patch] #7 patch methocarbamoL [Robaxin] 500 mg PO BID PRN 7 Days #14 tab 10/05/22 Allergies Allergy/AdvReac Type Severity Reaction Status Date / Time No Known Allergies Allergy Verified 10/05/22 08:56 Review of Systems ROS Statement: Those systems with pertinent positive or pertinent negative responses have been documented in the HPI. Review of Systems: CONST: Denies fever EYES: Denies blurry vision ENT: Denies nasal congestion C/V: Denies Chest pain RESP: Denies shortness of breath GI: Denies abdominal pain : Denies dysuria SKIN: Denies rash. MSK: Endorses back pain NEURO: Denies headache ROS Other: All systems not noted in ROS Statement are negative. Past Medical History Past Medical History: Coronary Artery Disease (CAD), Diabetes Mellitus, GI Bleed, Hyperlipidemia, Osteoarthritis (OA) Additional Past Medical History / Comment(s): ESSENTIAL TREMORS, GI bleed 10/2017, diverticulitis, gallstones, some loss of use of rt arm, herniated disk, spinal stenosis History of Any Multi-Drug Resistant Organisms: None Reported Past Surgical History: Cholecystectomy Additional Past Surgical History / Comment(s): 3 cardiac stents, surgery on rt arm x 3 -fx as child, left eyelid surgery Past Anesthesia/Blood Transfusion Reactions: No Reported Reaction Date of Last Stent Placement:: 1999 Past Psychological History: Anxiety, Depression, Panic Disorder, Schizophrenia Smoking Status: Current every day smoker Past Alcohol Use History: None Reported Past Drug Use History: None Reported - Past Family History Mother Family Medical History: No Reported History family Family Medical History: Coronary Artery Disease (CAD) General Exam - General Exam Comments Initial Comments: General: Appears in mild distress secondary to back pain. HEAD: Normal with no signs of head trauma. Negative Whiting sign, negative raccoon eyes. EYES: PERRLA, EOMI, conjunctiva normal, no discharge. Pupils are 3 mm equal bilaterally. ENT: Hearing grossly intact, normal oropharynx. RESPIRATORY: Clear breath sounds bilaterally. No wheezes, rales, or rhonchi. C/V: Regular rate and rhythm. S1 and S2 auscultated, no edema, peripheral pulses 2+ and intact throughout ABD: Abd is soft, nontender, nondistended EXT: Normal range of motion, no obvious deformity. Midline tenderness to palpation in the mid thoracic, lumbar spine with paraspinal muscle tenderness. No cervical or upper thoracic spine tenderness to palpation. Pelvis is stable. SKIN: No rashes or lesions observed on exposed skin. NEURO: Alert and oriented x 4. Cranial nerves II-XII intact. No focal sensory or strength deficits. GCS of 15. Limitations: no limitations Course Vital Signs 10/05/22 10/05/22 08:50 12:21 Temperature 97.8 F 98.2 F Pulse Rate 57 L 80 Respiratory 18 18 Rate Blood Pressure 125/69 126/70 O2 Sat by Pulse 97 98 Oximetry Medical Decision Making - Medical Decision Making Based on the patient's presentation and physical exam, does appear that he experienced a mechanical fall yesterday and is now experiencing worsening acute on chronic back pain. Cannot rule out acute injury at this time. It appears to have been a mechanical fall but we will obtain screening EKG as well as laboratory studies. We will also obtain a chest and pelvis x-ray as well as CT imaging the spine and brain. He'll be given symptomatic analgesic medications. He was in agreement with this plan. Vital signs within acceptable limits. EKG shows no signs of acute ischemia.Patient's laboratory studies are within normal limits. Pelvic x-ray as interpreted by myself reveals no acute fracture or subluxation. There are chronic findings. Chest x-ray is interpreted by myself reveals no acute injury, no acute cardio pulmonary process. No infiltrate. Patient's CT imaging was reviewed by myself, with brain CT showing no acute intracranial process, no hemorrhage. CT cervical spine shows no evidence of fracture or subluxation of the cervical spine. CT thoracic and lumbar spines both revealed chronic degenerative changes with no obvious acute findings. Radiology did concur with my evaluations. On reevaluation, patient is feeling improved. We did discuss his results. He is due to follow-up with his PCP in the next week or so. I did recommend following up, and strict return precautions were discussed. No concern for cauda equina syndrome at this time as he has no red flag symptoms. He'll be discharged home at this time. He was in agreement this plan. - Lab Data Result diagrams: 10/05/22 09:15 10/05/22 09:15 Lab Results 10/05/22 10/05/22 Range/Units 09:15 09:15 WBC 5.1 (3.8-10.6) k/uL RBC 4.23 L (4.30-5.90) m/uL Hgb 13.5 (13.0-17.5) gm/dL Hct 38.5 L (39.0-53.0) % MCV 91.2 (80.0-100.0) fL MCH 31.9 (25.0-35.0) pg MCHC 35.0 (31.0-37.0) g/dL RDW 14.4 (11.5-15.5) % Plt Count 211 (150-450) k/uL MPV 7.2 Neutrophils % 61 % Lymphocytes % 25 % Monocytes % 7 % Eosinophils % 5 % Basophils % 1 % Neutrophils # 3.1 (1.3-7.7) k/uL Lymphocytes # 1.3 (1.0-4.8) k/uL Monocytes # 0.4 (0-1.0) k/uL Eosinophils # 0.2 (0-0.7) k/uL Basophils # 0.0 (0-0.2) k/uL Sodium 137 (137-145) mmol/L Potassium 4.2 (3.5-5.1) mmol/L Chloride 110 H (98-107) mmol/L Carbon Dioxide 20 L (22-30) mmol/L Anion Gap 7 mmol/L BUN 17 (9-20) mg/dL Creatinine 0.65 L (0.66-1.25) mg/dL Est GFR (CKD-EPI)AfAm >90 (>60 ml/min/1.73 sqM) Est GFR (CKD-EPI)NonAf >90 (>60 ml/min/1.73 sqM) Glucose 99 (74-99) mg/dL Calcium 8.9 (8.4-10.2) mg/dL Total Bilirubin 0.7 (0.2-1.3) mg/dL AST 33 (17-59) U/L ALT 37 (4-49) U/L Alkaline Phosphatase 70 (38-126) U/L Total Protein 6.3 (6.3-8.2) g/dL Albumin 4.0 (3.5-5.0) g/dL - EKG Data -: EKG Interpreted by Me EKG Comments: 12-lead Electrocardiogram Interpretation Note EKG was reviewed and interpreted by myself. 12-lead ECG performed at 0911 is interpreted by me as revealing normal sinus rhythm at a rate of 57 beats per minute. Rachel is normal. W[place] interval is 167 ms, QRS duration is 92 ms, QTc is 424 ms.. There were no ST or T wave abnormalities to suggest myocardial ischemia or injury. R wave progression across the precordium was satisfactory. By my interpretation this EKG is non-diagnostic for acute ischemia. When compared with prior EKG from June 2022, no significant change. Disposition Clinical Impression: Back pain, Chronic pain, Fall Disposition: HOME SELF-CARE Condition: Good Instructions (If sedation given, give patient instructions): Acute Low Back Pain (ED) Prescriptions: Lidocaine 5% Patch [Lidoderm 5% Patch] 1 patch TOPICAL DAILY PRN 7 Days #7 patch PRN Reason: Pain methocarbamoL [Robaxin] 500 mg PO BID PRN 7 Days #14 tab PRN Reason: Pain Is patient prescribed a controlled substance at d/c from ED?: No Referrals: [facility],Clinic [Primary Care Provider] - 10/16/22 10:30 am Time of Disposition: 11:15
--- NOTE | 2022-10-05 10:13 | CT ---
EXAMINATION TYPE: CT brain vladimir wo con DATE OF EXAM: 10/05/2022 COMPARISON: 07/24/2022 HISTORY: fall, chronic back pain CT DLP: 1701.[address] of the brain was performed. The ventricles, basal cisterns and sulci overlying the cerebral convexities demonstrate mild to moder ate enlargement. There is no evidence for intracranial hemorrhage or sulcal effacement. There is decreased attenuatio n about the periventricular white matter and deep white matter of both cerebral hemispheres, compatib le with chronic small vessel ischemia. No mass effects are seen. Stable hyperdense colloid cyst measuring 8.3 mm. If symptoms persist consider MRI. Osseous calvarium is intact. IMPRESSION: 1. Age related atrophic and chronic small vessel ischemic change without acute intracranial process seen at this time. CT Cervical Spine: Unenhanced CT of the cervical spine was performed with bone and soft tissue window settings submitted . Coronal and sagittal reconstruction is obtained. There is normal alignment and prevertebral soft tissues. No evidence for acute cervical fracture . Scattered degenerative disc disease and spondylosis. Biapical scarring. IMPRESSION: 1. No evidence for acute fracture or subluxation of the cervical spine.
--- NOTE | 2022-10-05 10:16 | CT ---
EXAMINATION TYPE: CT thor lumbar spine wo con DATE OF EXAM: 10/05/2022 COMPARISON: 04/04/2022 HISTORY: chronic back pain CT DLP: 2261 mGycm Automated exposure control for dose reduction was used. Unenhanced CT of the thoracolumbar spine was performed in the axial, sagittal and coronal planes. FINDINGS: There is no acute fracture or malalignment mild superior endplate chronic loss of height is noted at the T12 vertebral body unchanged from prior study. Moderate degenerative change mid thoracic spine wi th disc space narrowing, ventral spondylosis and posterior disc bulge. No central stenosis seen. Vacu um disks noted from L2 through L5 S1. Posterior disc bulge with encapsulating spur resulting in disc endplate complex. Again noted is central stenosis at L2-3, L3-4 and L4/L5. IMPRESSION: 1. No evidence for acute fracture of the thoracolumbar spine as noted above.
[2022-10-05] MEDS ORDERED: ACET/COD 300 MG/30 MG STARTER PACK 6 TAB BTL PO STA (11:39)
[2022-10-05 12:25] VITALS: BP 126/70; PULSE 80; TEMP 98.2
== END 2022-10-05 12:21 | disposition home or self-care (01) ==
LOC: EC 08:48
DX: M54.50 Low back pain, unspecified (principal); G89.29 Other chronic pain; I25.10 Atherosclerotic heart disease of native coronary artery without angina pectoris; E11.9 Type 2 diabetes mellitus without complications; E78.5 Hyperlipidemia, unspecified; F32.A Depression, unspecified; F41.9 Anxiety disorder, unspecified; F17.200 Nicotine dependence, unspecified, uncomplicated; Z79.1 Long term (current) use of non-steroidal anti-inflammatories (NSAID); Z79.4 Long term (current) use of insulin; Z79.82 Long term (current) use of aspirin; Z79.84 Long term (current) use of oral hypoglycemic drugs; Z04.3 Encounter for examination and observation following other accident
CPT/HCPCS: 36415; 93005; 80053; 85025; 72170; 71046; 72128; 72125; 72131; 70450; 99285; 96374; 96361 ×3; J2270

== ENCOUNTER 2022-11-02 13:04 | Inpatient (IN) | payer OTHER, MEDICARE ==
[2022-11-02 13:15] LABS: Glucose,Whole Blood 124 mg/dL (70-110)
--- NOTE | 2022-11-02 14:20 | ED ---
General Adult HPI - General Source: patient, RN notes reviewed, old records reviewed Mode of arrival: wheelchair Limitations: no limitations <Timmy Toribio - Last Filed: 11/02/22 14:19> <Saloni Servin - Last Filed: 11/02/22 21:07> - General Chief complaint: Extremity Problem,Nontraumatic Stated complaint: Foot infection Time Seen by Provider: 11/02/22 14:19 - History of Present Illness Initial comments: This is an 82-year-old male who is a diabetic and injured his foot about a week ago didn't tell any family and then family noticed that his left fifth toe and left fourth toe or changing colors on the fifth toe has an area of blackness according to the daughter and they went to the clinic and they thought the patient might of gangrene and/or ostium abnormalities when the patient come emergency department. Patient denies any fever patient is not complaining of any pain (Timmy Toribio) - Related Data Home Medications Medication Instructions Recorded Confirmed Atorvastatin [Lipitor] 40 mg PO HS 01/01/17 11/02/22 Aspirin [Adult Low Dose Aspirin EC] 81 mg PO DAILY 05/29/18 11/02/22 Cholecalciferol [Vitamin D3 (10 400 unit PO DAILY 05/29/18 11/02/22 Mcg = 400 Iu)] methocarbamoL [Robaxin] 500 mg PO BID 04/04/22 11/02/22 metFORMIN HCL 1,000 mg PO BID 06/30/22 11/02/22 Insulin Glargine,Hum.rec.anlog 25 unit SQ DAILY@1200 07/04/22 11/02/22 [Insulin Glargine Solostar] Folic Acid 1 mg PO DAILY 07/17/22 11/02/22 Magnesium Oxide [Mag-Ox] 250 mg PO DAILY 07/17/22 11/02/22 DULoxetine HCL [Cymbalta] 30 mg PO HS 11/02/22 11/02/22 Gabapentin [Neurontin] 300 mg PO TID 11/02/22 11/02/22 Lidocaine 5% Patch [Lidoderm 5% 1 patch TOPICAL DAILY 11/02/22 11/02/22 Patch] Multivitamins, Thera [Multivitamin 1 tab PO DAILY 11/02/22 11/02/22 (formulary)] Naproxen [Naprosyn] 375 mg PO BID 11/02/22 11/02/22 Propranolol HCl [Inderal] 60 mg PO BID 11/02/22 11/02/22 traMADol HCL 50 mg PO Q8H PRN 11/02/22 11/02/22 Allergies Allergy/AdvReac Type Severity Reaction Status Date / Time No Known Allergies Allergy Verified 11/02/22 18:58 Review of Systems ROS Other: All systems not noted in ROS Statement are negative. <Timmy Toribio - Last Filed: 11/02/22 14:19> ROS Other: All systems not noted in ROS Statement are negative. <Saloni Servin - Last Filed: 11/02/22 21:07> ROS Statement: Those systems with pertinent positive or pertinent negative responses have been documented in the HPI. Past Medical History Past Medical History: Coronary Artery Disease (CAD), Diabetes Mellitus, GI Bleed, Hyperlipidemia, Osteoarthritis (OA) Additional Past Medical History / Comment(s): ESSENTIAL TREMORS, GI bleed 10/2017, diverticulitis, gallstones, some loss of use of rt arm, herniated disk, spinal stenosis History of Any Multi-Drug Resistant Organisms: None Reported Past Surgical History: Cholecystectomy Additional Past Surgical History / Comment(s): 3 cardiac stents, surgery on rt arm x 3 -fx as child, left eyelid surgery Past Anesthesia/Blood Transfusion Reactions: No Reported Reaction Date of Last Stent Placement:: 1999 Past Psychological History: Anxiety, Depression, Panic Disorder, Schizophrenia Smoking Status: Current every day smoker Past Alcohol Use History: None Reported Past Drug Use History: None Reported - Past Family History Mother Family Medical History: No Reported History family Family Medical History: Coronary Artery Disease (CAD) <Timmy Toribio - Last Filed: 11/02/22 14:19> General Exam Limitations: no limitations <Timmy Toribio - Last Filed: 11/02/22 14:19> General appearance: alert, in no apparent distress Head exam: Present: atraumatic, normocephalic, normal inspection Eye exam: Present: normal appearance, PERRL, EOMI. Absent: scleral icterus, conjunctival injection, periorbital swelling Respiratory exam: Present: normal lung sounds bilaterally. Absent: respiratory distress, wheezes, rales, rhonchi, stridor Cardiovascular Exam: Present: regular rate, normal rhythm, normal heart sounds. Absent: systolic murmur, diastolic murmur, rubs, gallop, clicks Extremities exam: Present: other (left foot: sloughing of third and fourth digit. hyperkeratosis of first digit with ulceration beneath nail. purple discoloration of bilateral feet which are cold, cap refill < 2seconds. patient has no sensation due to diabetic neuropathy ) Neurological exam: Present: alert, oriented X3, CN II-XII intact Psychiatric exam: Present: normal affect, normal mood Skin exam: Present: warm, dry, intact, normal color. Absent: rash <Saloni Servin - Last Filed: 11/02/22 21:07> Course Vital Signs 11/02/22 11/02/22 11/02/22 13:05 14:17 19:05 Temperature 98 F 97.5 F L 97.6 F Pulse Rate 65 60 59 L Respiratory 16 16 16 Rate Blood Pressure 129/61 169/74 135/79 O2 Sat by Pulse 99 98 95 Oximetry 11/02/22 20:42 Temperature Pulse Rate 90 Respiratory 18 Rate Blood Pressure 143/83 O2 Sat by Pulse 98 Oximetry Medical Decision Making - Lab Data Result diagrams: 11/02/22 13:16 11/02/22 13:16 <Saloni Servin - Last Filed: 11/02/22 21:07> - Medical Decision Making Was pt. sent in by a medical professional or institution (Dr. PA, OIL BURNER REPAIRER, urgent care, hospital, or prison...) When possible be specific @ -[facility] Did you speak to anyone other than the patient for history (EMS, parent, family, police, friend...)? What history was obtained from this source @ -[No] Did you review nursing and triage notes (agree or disagree)? Why? @ -[I reviewed and agree with nursing and triage notes] Were old charts reviewed (outside hosp., previous admission, EMS record, old EKG, old radiological studies, urgent care reports/EKG's, prison records)? Report findings @ -Yes, patient has history of PAD. Left lower extremity ultrasound from May 2022 reviewed which revealed normal [place] values bilaterally. Slightly diminished left TBI consistent with at least mild peripheral artery disease in the left foot Differential Diagnosis (chest pain, altered mental status, abdominal pain women, abdominal pain men, vaginal bleeding, weakness, fever, dyspnea, syncope, headache, dizziness, GI bleed, back pain, seizure, CVA, palpatations, mental health)? @ -cellulitis, gangrene, toe fracture, PAD EKG interpreted by me (3pts min.). @ -NA X-rays interpreted by me (1pt min.). @ Yes, no acute fracture/dislocation evident in the left foot. Tapering of the distal phalanx of the first toe noted with adjacent periosteal reaction, acute oor remote infection at this level cannot be excluded CT interpreted by me (1pt min.). @ CTA of the LLE reveals PAD at the level of the mid leg without evidence of acute ischemia U/S interpreted by me (1pt. min.). @ -NA What testing was considered but not performed or refused? (CT, X-rays, U/S, labs)? Why? @ -NA What meds were considered but not given or refused? Why? @ -Pain were considered however patient does not have pain Did you discuss the management of the patient with other professionals (professionals i.e. , PA, OIL BURNER REPAIRER, lab, RT, psych nurse, social media sr strategy manager, boarding kennel or cattery operator, teacher, state patrol officer, disease case manager rn)? Give summary @ -[No] Was smoking cessation discussed for >3mins.? @ -[No] Was critical care preformed (if so, how long)? @ -[No] Were there social determinants of health that impacted care today? How? (Homelessness, low income, unemployed, alcoholism, drug addiction, transportation, low edu. Level, literacy, decrease access to med. care, longterm, rehab)? @ -[No] Was there de-escalation of care discussed even if they declined (Discuss DNR or withdrawal of care, Hospice)? DNR status @ -[No] What co-morbidities impacted this encounter? (DM, HTN, Smoking, COPD, CAD, Cancer, CVA, ARF, Chemo, Hep., AIDS, mental health diagnosis, sleep apnea, morbid obesity)? @ -CAD, diabetes mellitus, hyperlipidemia Was patient admitted / discharged? Hospital course, mention meds given and route, prescriptions, significant lab abnormalities, going to OR and other pertinent info. @ -This is an 82 -year-old male presenting due to concern for infection of the left toes. Patient has no pain however has severe diabetic neuropathy. Afebrile. No leukocytosis. The bilateral feet show purple discoloration, cold, which is chronic in nature according to daughter. There is ulceration of the left great toe. X-ray shows periosteal reaction of the left great toe. Vancomycin started. CTA of the LLE reveals PAD at the level of the mid leg without evidence of acute ischemia. Patient diabetic, elderly-poor candidate for outpatient antibiotics. Patient to be admitted for possible cellulitis. Case discussed with Dr. Maloney who accepts admission. Undiagnosed new problem with uncertain prognosis? @ -[No] Drug Therapy requiring intensive monitoring for toxicity (Heparin, Nitro, Insulin, Cardizem)? @ -[No] Were any procedures done? @ -[No] Diagnosis/symptom? @ -Cellulitis Acute, or Chronic, or Acute on Chronic? @ -Acute Uncomplicated (without systemic symptoms) or Complicated (systemic symptoms)? @ -Uncomplicated Side effects of treatment? @ -[No] Exacerbation, Progression, or Severe Exacerbation? @ -[No] Poses a threat to life or bodily function? How? (Chest pain, [place], [facility], pneumonia, PE, COPD, DKA, ARF, appy, cholecystitis, CVA, Diverticulitis, Homicidal, Suicidal, threat to staff... and all critical care pts) @ -Yes Dr. José is my attending. (Saloni Servin) - Lab Data Lab Results 11/02/22 11/02/22 11/02/22 Range/Units 13:12 13:16 13:16 WBC 7.4 (3.8-10.6) k/uL RBC 4.73 (4.30-5.90) m/uL Hgb 15.0 (13.0-17.5) gm/dL Hct 44.2 (39.0-53.0) % MCV 93.4 (80.0-100.0) fL MCH 31.6 (25.0-35.0) pg MCHC 33.8 (31.0-37.0) g/dL RDW 14.1 (11.5-15.5) % Plt Count 251 (150-450) k/uL MPV 7.6 Neutrophils % 75 % Lymphocytes % 14 % Monocytes % 6 % Eosinophils % 3 % Basophils % 1 % Neutrophils # 5.5 (1.3-7.7) k/uL Lymphocytes # 1.0 (1.0-4.8) k/uL Monocytes # 0.4 (0-1.0) k/uL Eosinophils # 0.3 (0-0.7) k/uL Basophils # 0.1 (0-0.2) k/uL Sodium 140 (137-145) mmol/L Potassium 4.8 (3.5-5.1) mmol/L Chloride 102 (98-107) mmol/L Carbon Dioxide 25 (22-30) mmol/L Anion Gap 13 mmol/L BUN 22 H (9-20) mg/dL Creatinine 0.97 (0.66-1.25) mg/dL Est GFR (CKD-EPI)AfAm 86 (>60 ml/min/1.73 sqM) Est GFR (CKD-EPI)NonAf 74 (>60 ml/min/1.73 sqM) Glucose 114 H (74-99) mg/dL POC Glucose (mg/dL) 124 H (70-110) mg/dL POC Glu Global Logistics Manager ID Karina Colbert Calcium 10.5 H (8.4-10.2) mg/dL Total Bilirubin 0.9 (0.2-1.3) mg/dL AST 35 (17-59) U/L ALT 32 (4-49) U/L Alkaline Phosphatase 98 (38-126) U/L Total Protein 7.8 (6.3-8.2) g/dL Albumin 4.9 (3.5-5.0) g/dL Disposition <Timmy Toribio - Last Filed: 11/02/22 14:19> <Saloni Servin - Last Filed: 11/02/22 21:07> Clinical Impression: Cellulitis of left toe, History of diabetes mellitus Disposition: ADMITTED IP TO THIS HOSP Condition: Good Referrals: [facility],Clinic [Primary Care Provider] - 1-2 days
[2022-11-02 14:38] LABS: Basophils # (A) 0.1 k/uL (0-0.2); Basophils % (A) 1 %; Eosinophils # (A) 0.3 k/uL (0-0.7); Eosinophils % (A) 3 %; HCT 44.2 % (39.0-53.0); Lymphocytes % (A) 14 %; MCH 31.6 pg (25.0-35.0); MCHC 33.8 g/dL (31.0-37.0); MCV 93.4 fL (80.0-100.0); Mean Platelet Volume 7.6; Monocytes # (A) 0.4 k/uL (0-1.0); Monocytes % (A) 6 %; Neutrophils # (A) 5.5 k/uL (1.3-7.7); Neutrophils % (A) 75 %; Platelet Count 251 k/uL (150-450); RBC 4.73 m/uL (4.30-5.90); RDW 14.1 % (11.5-15.5); WBC 7.4 k/uL (3.8-10.6)
[2022-11-02 15:16] LABS: Albumin 4.9 g/dL (3.5-5.0); Calcium 10.5 mg/dL (8.4-10.2); Potassium 4.8 mmol/L (3.5-5.1); Total Bilirubin 0.9 mg/dL (0.2-1.3); Total Protein 7.8 g/dL (6.3-8.2)
--- NOTE | 2022-11-02 16:23 | XR ---
EXAMINATION TYPE: XR foot complete LT DATE OF EXAM: 11/02/2022 CLINICAL HISTORY: Pain and swelling rule out osteomyelitis TECHNIQUE: Frontal, lateral, and oblique images of the left foot are obtained. COMPARISON: None FINDINGS: There is no acute fracture/dislocation evident in the left foot. The joint spaces in the left foot appear within normal limits. Tapering of the distal phalanx first toe is noted with some ad jacent periosteal reaction. Acute or remote infection at this level cannot be excluded if this is the area of clinical concern. Correlate clinically. Overlying soft tissue is unremarkable. IMPRESSION: As above.
[2022-11-02] MEDS ORDERED: VANCOMYCIN 1,000 MG in SODIUM CHLORIDE 0.9% 250 ML IVPB STA (16:47)
[2022-11-02] MEDS ORDERED: VANCOMYCIN IV PER PHARMACY 1 EACH MISC MISCELLANE PRN (16:50)
[2022-11-02] MEDS ORDERED: VANCOMYCIN 2,000 MG in SODIUM CHLORIDE 0.9% 500 ML 500 ML IVPB ONE (17:30)
[2022-11-02] MEDS ORDERED: RX INFO: IV CONTRAST WAS GIVEN 1 EACH MISC MISCELLANE PRN (17:52)
[2022-11-02] MEDS ORDERED: ACETAMINOPHEN TAB 500 MG TAB PO STA (18:22)
--- NOTE | 2022-11-02 20:16 | CT ---
EXAMINATION TYPE: CT angio lower extremity LT: 11/02/2022 HISTORY: left toe discoloration CT DLP: 1643.9 mGycm. Automated exposure control for dose reduction was used. CONTRAST: Performed with IV Contrast, patient injected with 100 mL of Isovue 370. COMPARISON: Radiographs 11/02/2022 pain-bilateral lower extremities no acute process. Right kidney pili ures 13.8 x 7.0 x 5.5 cm. 06/07/2020 PA FINDINGS: Left aortoiliac inflow is patent. The left common, external, and internal iliac arteries are widely p atent. CSF is widely patent. The left profunda and superficial femoral arteries are widely patent. Le ft popliteal artery is widely patent. There is opacification of the proximal anterior tibial artery, the tibioperoneal trunk, and the proximal peroneal and posterior tibial arteries. However, in the mid leg opacification of these vessels cannot be confirmed. Also, at the level of the ankle/foot, neithe r the dorsalis pedis nor the posterior tibial arteries are opacified. The radiographic tapering of the distal phalanx first toe is redemonstrated. IMPRESSION: LEFT PERIPHERAL VASCULAR DISEASE AT THE LEVEL OF THE MID LEG.
[2022-11-02] MEDS ORDERED: SODIUM CHLORIDE 0.9% 1,000 ML IV STA (21:01)
[2022-11-02] MEDS ORDERED: NALOXONE 0.4 MG/ML 1 ML VIAL IV PRN (21:28)
[2022-11-02] MEDS: PROPRANOLOL 20 MG TAB PO SCH (22:18)
[2022-11-02] MEDS: methocarbamoL 500 MG TAB PO SCH (22:19)
[2022-11-02] MEDS: DULoxetine HCL 30 MG CAPSULE.DR PO SCH (22:19)
[2022-11-02] MEDS: traMADol 50 MG TAB PO PRN (22:19)
[2022-11-02] MEDS: GABAPENTIN 300 MG CAP PO SCH (22:19)
[2022-11-02] MEDS: SODIUM CHLORIDE 0.9% 1,000 ML IV SCH (22:22)
--- NOTE | 2022-11-03 00:10 | P.HPIM ---
History of Present Illness H&P Date: 11/02/22 The patient is an 82-year-old male with a PMH of type II DM, peripheral neuropathy, coronary artery disease status post multiple stents, chronic lower back pain, hypertension, and hyperlipidemia who was sent to the emergency room from the [facility]. The patient reports that he stubbed his left foot roughly a week ago and initially noticed the injury when his visiting nurse came to see him 3-4 days ago. The patient was subsequently seen at the [facility] earlier today where he was noted to have discoloration of his left third and fourth toes with some drainage. The patient was subsequently sent to the emergency room. He reports no pain at the site of his ulcers at the time of int erview. He reports a history of diabetic neuropathy that he has minimal feeling in his feet. He further denied fever, chills, chest pain, shortness of breath, nausea, vomiting. A left lower extremity CTA in the emergency room revealed left peripheral vascular disease at the level of the mid leg. Left foot x-ray reveals with some periosteal reaction of the first toe with acute or remote infection not excluded. Laboratory evaluation was reviewed and was unremarkable. The case was discussed in extensive detail with the ED provider. Review of systems: Pertinent positives and negatives as discussed in HPI, a complete review of systems was performed and all other systems are negative. Physical examination: General: non toxic, no distress, appears at stated age, normal weight Derm: L 3rd and 4th toe ulcerations noted around 4-5 cm each with some erythema and warmth with hyperkeratosis noted, warm Head: atraumatic, normocephalic, symmetric Eyes: EOMI, no lid lag, anicteric sclera, pupils equal round reactive to light ENT: Nose and ears atraumatic Neck: No cervical lymphadenopathy, trachea midline, supple Mouth: no lip lesion, mucus membranes moist Cardiovascular: S1S2 reg, no murmur, positive dorsalis pedis pulse bilateral, no edema Lungs: CTA bilateral, no rhonchi, no rales, no accessory muscle use Abdominal: soft, nontender to palpation, no guarding Ext: muscle strength 5 out of 5 in all 4 extremities grossly, no gross muscle atrophy, no contractures, Neuro: CN II-XI grossly intact, no gross focal neuro deficits Psych: Alert, oriented, appropriate affect Assessment/plan Left third and fourth toe diabetic ulcerations noted -Infectious disease consulted -Continue with IV antibiotics -Follow up blood cultures Chronic conditions: Type II DM, hypertension, hyperlipidemia, coronary artery disease -Continue with home meds -Insulin sliding scale DVT prophylaxis -Heparin subq The patient is admitted with an anticipated less than 2 midnight stay for evaluation of L toes uclerations CODE STATUS: Full Code Discussed with: Patient Anticipated discharge date: in am Anticipated discharge place: Home Past Medical History Past Medical History: Coronary Artery Disease (CAD), Diabetes Mellitus, GI Bleed, Hyperlipidemia, Osteoarthritis (OA) Additional Past Medical History / Comment(s): ESSENTIAL TREMORS, GI bleed 10/2017, diverticulitis, gallstones, some loss of use of rt arm, herniated disk, spinal stenosis History of Any Multi-Drug Resistant Organisms: None Reported Past Surgical History: Cholecystectomy Additional Past Surgical History / Comment(s): 3 cardiac stents, surgery on rt arm x 3 -fx as child, left eyelid surgery Past Anesthesia/Blood Transfusion Reactions: No Reported Reaction Date of Last Stent Placement:: 1999 Past Psychological History: Anxiety, Depression, Panic Disorder, Schizophrenia Smoking Status: Current every day smoker Past Alcohol Use History: None Reported Past Drug Use History: None Reported - Past Family History Mother Family Medical History: No Reported History family Family Medical History: Coronary Artery Disease (CAD) Medications and Allergies Home Medications Medication Instructions Recorded Confirmed Type Atorvastatin [Lipitor] 40 mg PO HS 01/01/17 11/02/22 History Aspirin [Adult Low Dose Aspirin EC] 81 mg PO DAILY 05/29/18 11/02/22 History Cholecalciferol [Vitamin D3 (10 400 unit PO DAILY 05/29/18 11/02/22 History Mcg = 400 Iu)] methocarbamoL [Robaxin] 500 mg PO BID 04/04/22 11/02/22 History metFORMIN HCL 1,000 mg PO BID 06/30/22 11/02/22 History Insulin Glargine,Hum.rec.anlog 25 unit SQ DAILY@1200 07/04/22 11/02/22 History [Insulin Glargine Solostar] Folic Acid 1 mg PO DAILY 07/17/22 11/02/22 History Magnesium Oxide [Mag-Ox] 250 mg PO DAILY 07/17/22 11/02/22 History DULoxetine HCL [Cymbalta] 30 mg PO HS 11/02/22 11/02/22 History Gabapentin [Neurontin] 300 mg PO TID 11/02/22 11/02/22 History Lidocaine 5% Patch [Lidoderm 5% 1 patch TOPICAL DAILY 11/02/22 11/02/22 History Patch] Multivitamins, Thera [Multivitamin 1 tab PO DAILY 11/02/22 11/02/22 History (formulary)] Naproxen [Naprosyn] 375 mg PO BID 11/02/22 11/02/22 History Propranolol HCl [Inderal] 60 mg PO BID 11/02/22 11/02/22 History traMADol HCL 50 mg PO Q8H PRN 11/02/22 11/02/22 History Allergies Allergy/AdvReac Type Severity Reaction Status Date / Time No Known Allergies Allergy Verified 11/02/22 18:58 Physical Exam Vitals: Vital Signs Temp Pulse Resp BP Pulse Ox 11/02/22 20:42 90 18 143/83 98 11/02/22 19:05 97.6 F 59 L 16 135/79 95 11/02/22 14:17 97.5 F L 60 16 169/74 98 11/02/22 13:05 98 F 65 16 129/61 99 Intake and Output 11/02/22 11/02/22 11/03/22 14:59 22:59 06:59 Other: Weight 97.522 kg Results CBC & Chem 7: 11/02/22 13:16 11/02/22 13:16 Labs: Abnormal Lab Results - Last 24 Hours (Table) 11/02/22 11/02/22 Range/Units 13:12 13:16 BUN 22 H (9-20) mg/dL Glucose 114 H (74-99) mg/dL POC Glucose (mg/dL) 124 H (70-110) mg/dL Calcium 10.5 H (8.4-10.2) mg/dL
[2022-11-03] MEDS: NAPROXEN 250 MG TAB PO SCH ×3 (00:44→20:42)
[2022-11-03] MEDS ORDERED: VANCOMYCIN 1,750 MG in SODIUM CHLORIDE 0.9% 500 ML 500 ML IVPB SCH (06:00)
[2022-11-03 06:15] LABS: Glucose,Whole Blood 125 mg/dL (70-110)
[2022-11-03] MEDS: INSULIN ASPART (NovoLOG) 100 UNIT/ML VIAL SQ SCH ×4 (06:19→20:43)
[2022-11-03] MEDS: traMADol 50 MG TAB PO PRN ×2 (08:04→16:38)
[2022-11-03] MEDS: GABAPENTIN 300 MG CAP PO SCH ×3 (09:45→20:42)
[2022-11-03] MEDS: FOLIC ACID 1 MG TAB PO SCH (09:45)
[2022-11-03] MEDS: ASPIRIN 81 MG PO SCH (09:46)
[2022-11-03] MEDS: MAGNESIUM OXIDE 400 MG TAB PO SCH (09:46)
[2022-11-03] MEDS: MULTIVITAMINS, THERA 1 EACH TAB PO SCH (09:46)
[2022-11-03] MEDS: methocarbamoL 500 MG TAB PO SCH ×2 (09:47→20:41)
[2022-11-03] MEDS: PROPRANOLOL 20 MG TAB PO SCH ×2 (09:49→20:41)
[2022-11-03] MEDS: CHOLECALCIFEROL 10 MCG (400 IU) TABLET PO SCH (10:50)
[2022-11-03] MEDS: SODIUM CHLORIDE 0.9% 1,000 ML IV SCH (10:57)
[2022-11-03 11:31] LABS: Glucose,Whole Blood 146 mg/dL (70-110)
[2022-11-03] MEDS: INSULIN DETEMIR (LEVEMIR) 100 UNIT/ML SYR SQ SCH (12:40)
[2022-11-03] MEDS: AMPICILLIN-SULBACTAM 3 GM in SODIUM CHLORIDE 0.9% 100 ML IVPB SCH ×3 (14:13→23:52)
--- NOTE | 2022-11-03 15:22 | P.PN ---
Subjective Progress Note Date: 11/03/22 The patient is an 82-year-old male with a PMH of type II DM, peripheral neuropathy, coronary artery disease status post multiple stents, chronic lower back pain, hypertension, and hyperlipidemia who was sent to the emergency room from the [facility]. The patient reports that he stubbed his left foot roughly a week ago and initially noticed the injury when his visiting nurse came to see him 3-4 days ago. The patient was subsequently seen at the [facility] earlier today where he was noted to have discoloration of his left third and fourth toes with some drainage. The patient was subsequently sent to the emergency room. He reports no pain at the site of his ulcers at the time of interview. He reports a history of diabetic neuropathy that he has minimal feeling in his feet. He further denied fever, chills, chest pain, shortness of breath, nausea, vomiting. A left lower extremity CTA in the emergency room revealed left peripheral vascular disease at the level of the mid leg. Left foot x-ray reveals with some periosteal reaction of the first toe with acute or remote infection not excluded. Laboratory evaluation was reviewed and was unremarkable. The case was discussed in extensive detail with the ED provider. Patient was seen and examined. He reports shooting pain in his left foot. Symtoms have improved since admission. Physical examination: General: non toxic, no distress, appears at stated age, normal weight Derm: L 3rd and 4th toe ulcerations noted around 4-5 cm each with some erythema and warmth with hyperkeratosis noted, warm Head: atraumatic, normocephalic, symmetric Eyes: EOMI, no lid lag, anicteric sclera ENT: Nose and ears atraumatic Neck: No cervical lymphadenopathy, trachea midline, supple Mouth: no lip lesion, mucus membranes moist Cardiovascular: S1S2 reg, no murmur, positive dorsalis pedis pulse bilateral, no edema Lungs: CTA bilateral, no rhonchi, no rales, no accessory muscle use Ext: muscle strength 5 out of 5 in all 4 extremities grossly, no gross muscle atrophy, no contractures, Neuro: no gross focal neuro deficits Psych: Alert, oriented, appropriate affect Assessment/plan Left third and fourth toe diabetic ulcerations noted -Infectious disease consulted -Agree with Vancomycin switched to Unasyn -Follow up blood cultures Peripheral arterial disease -Consult vascular surgery Chronic conditions: Type II DM, hypertension, hyperlipidemia, coronary artery disease -Continue with home meds -Insulin sliding scale DVT prophylaxis -Heparin subq Anticipate discharge in 1-2 days pending clinical improvement Objective - Vital Signs Vital signs: Vital Signs Temp 97.5 F L 11/03/22 07:20 Pulse 53 L 11/03/22 08:00 Resp 18 11/03/22 08:00 BP 135/57 11/03/22 07:20 Pulse Ox 96 11/03/22 07:20 FiO2 Intake & Output 11/02/22 11/03/22 11/03/22 18:59 06:59 18:59 Output Total 250 550 Balance -250 -550 Weight 97.522 kg 97.522 kg Output: Urine 250 550 Other: Voiding Method Toilet Toilet Urinal Urinal - Labs CBC & Chem 7: 11/02/22 13:16 11/02/22 13:16 Labs: Abnormal Lab Results - Last 24 Hours (Table) 11/03/22 11/03/22 Range/Units 06:13 11:29 POC Glucose (mg/dL) 125 H 146 H (70-110) mg/dL
[2022-11-03 16:49] LABS: Glucose,Whole Blood 188 mg/dL (70-110)
[2022-11-03 20:21] LABS: Glucose,Whole Blood 142 mg/dL (70-110)
[2022-11-03] MEDS: DULoxetine HCL 30 MG CAPSULE.DR PO SCH (20:42)
[2022-11-03] MEDS: ATORVASTATIN 80 MG TAB PO SCH (20:42)
--- NOTE | 2022-11-03 22:08 | P.CONS ---
History of Present Illness - Reason for Consult Consult date: 11/03/22 Diabetic cellulitis of toe Requesting physician: Saloni Servin - Chief Complaint Left foot toes wounds x few days - History of Present Illness Patient is a 82-year-old male with a past medical history significant for type 2 diabetes mellitus, peripheral neuropathy coronary disease and apparently stopped his left foot about a week ago and did not notice any problem initially under the patient was seen by the home care nurse for the patient was noticed to have some ulceration to the left third and fourth toe and apparently some drainage patient subsequently has been evaluated at the [facility] in year they will consult for possible gangrenous changes and send the patient to the [facility] ER for further evaluation, patient currently denies having any pain to the left foot toes because of his underlying neuropathy patient denies having any fever or any chills and denies having any foul-smelling drainage from the left third and fourth toe, patient on presentation to hospital was afebrile and no fever has been recorded subsequently, patient did have a normal white count patient did have a CT angiogram of the left leg with evidence of PAD he did have x-ray of the left foot with tissue some abnormality to the first digit but no abnormality to the third and fourth toe was reported on the x-rays patient was started on vancomycin and infectious disease was consulted for further management of antibiotic therapy Review of Systems Positive point has been mentioned in the HPI rest of the systems are negative Past Medical History Past Medical History: Coronary Artery Disease (CAD), Diabetes Mellitus, GI Bleed, Hyperlipidemia, Osteoarthritis (OA) Additional Past Medical History / Comment(s): ESSENTIAL TREMORS, GI bleed 10/2017, diverticulitis, gallstones, some loss of use of rt arm, herniated disk, spinal stenosis History of Any Multi-Drug Resistant Organisms: None Reported Past Surgical History: Cholecystectomy Additional Past Surgical History / Comment(s): 3 cardiac stents, surgery on rt arm x 3 -fx as child, left eyelid surgery Past Anesthesia/Blood Transfusion Reactions: No Reported Reaction Date of Last Stent Placement:: 1999 Past Psychological History: Anxiety, Depression, Panic Disorder, Schizophrenia Smoking Status: Current every day smoker Past Alcohol Use History: None Reported Past Drug Use History: None Reported - Past Family History Mother Family Medical History: No Reported History family Family Medical History: Coronary Artery Disease (CAD) Medications and Allergies Home Medications Medication Instructions Recorded Confirmed Type Atorvastatin [Lipitor] 40 mg PO HS 01/01/17 11/02/22 History Aspirin [Adult Low Dose Aspirin EC] 81 mg PO DAILY 05/29/18 11/02/22 History Cholecalciferol [Vitamin D3 (10 400 unit PO DAILY 05/29/18 11/02/22 History Mcg = 400 Iu)] methocarbamoL [Robaxin] 500 mg PO BID 04/04/22 11/02/22 History metFORMIN HCL 1,000 mg PO BID 06/30/22 11/02/22 History Insulin Glargine,Hum.rec.anlog 25 unit SQ DAILY@1200 07/04/22 11/02/22 History [Insulin Glargine Solostar] Folic Acid 1 mg PO DAILY 07/17/22 11/02/22 History Magnesium Oxide [Mag-Ox] 250 mg PO DAILY 07/17/22 11/02/22 History DULoxetine HCL [Cymbalta] 30 mg PO HS 11/02/22 11/02/22 History Gabapentin [Neurontin] 300 mg PO TID 11/02/22 11/02/22 History Lidocaine 5% Patch [Lidoderm 5% 1 patch TOPICAL DAILY 11/02/22 11/02/22 History Patch] Multivitamins, Thera [Multivitamin 1 tab PO DAILY 11/02/22 11/02/22 History (formulary)] Naproxen [Naprosyn] 375 mg PO BID 11/02/22 11/02/22 History Propranolol HCl [Inderal] 60 mg PO BID 11/02/22 11/02/22 History traMADol HCL 50 mg PO Q8H PRN 11/02/22 11/02/22 History Allergies Allergy/AdvReac Type Severity Reaction Status Date / Time No Known Allergies Allergy Verified 11/02/22 18:58 Physical Exam Vitals: Vital Signs Temp Pulse Pulse Resp BP BP Pulse Ox 11/03/22 08:00 53 L 18 11/03/22 07:20 97.5 F L 53 L 18 135/57 96 11/03/22 01:45 97.9 F 68 15 121/62 96 11/02/22 23:33 96.9 F L 58 L 18 161/62 97 11/02/22 20:42 90 18 143/83 98 11/02/22 19:05 97.6 F 59 L 16 135/79 95 11/02/22 14:17 97.5 F L 60 16 169/74 98 11/02/22 13:05 98 F 65 16 129/61 99 Intake and Output 11/02/22 11/03/22 11/03/22 22:59 06:59 14:59 Output Total 250 550 Balance -250 -550 Output: Urine 250 550 Other: Voiding Method Toilet Toilet Urinal Urinal Weight 97.522 kg GENERAL DESCRIPTION: Elderly male lying in bed, no distress. No tachypnea or accessory muscle of respiration use. HEENT: Shows Pallor , no scleral icterus. Oral mucous membrane is dry. No pharyngeal erythema or thrush NECK: Trachea central, no thyromegaly. LUNGS: Unlabored breathing. Clear to auscultation anteriorly. No wheeze or crackle. HEART: S1, S2, regular rate and rhythm. No loud murmur ABDOMEN: Soft, no tenderness , guarding or rigidity, no organomegaly EXTREMITIES: No edema of feet. Left third and fourth toe dorsum did have some superficial ulceration and crusting no foul-smelling drainage SKIN: No rash, no masses palpable. NEUROLOGICAL: The patient is awake, alert, oriented x3, mood and affect normal. Results CBC & Chem 7: 11/02/22 13:16 11/02/22 13:16 Labs: Abnormal Lab Results - Last 24 Hours (Table) 11/02/22 11/02/22 11/03/22 Range/Units 13:12 13:16 06:13 BUN 22 H (9-20) mg/dL Glucose 114 H (74-99) mg/dL POC Glucose (mg/dL) 124 H 125 H (70-110) mg/dL Calcium 10.5 H (8.4-10.2) mg/dL Assessment and Plan (1) Cellulitis of left toe Current Visit: Yes Status: Acute Code(s): L03.032 - CELLULITIS OF LEFT TOE SNOMED Code(s): 80007241 (2) Diabetic toe ulcer Current Visit: Yes Status: Acute Code(s): E11.621 - TYPE 2 DIABETES MELLITUS WITH FOOT ULCER; L97.509 - NON-PRESSURE CHRONIC ULCER OTH PRT UNSP FOOT W UNSP SEVERITY SNOMED Code(s): 988495672 Plan: 1patient with left third and fourth toe diabetic foot ulcer and concern for possible cellulitis likely from gram-positive skin nasreen underlying gram- negative infection less likely but not entirely excluded patient is a low risk for MRSA infection and x-ray did not show any evidence of bony abnormality of the third and fourth toe 2discontinue vancomycin to decrease the risk of nephrotoxicity 3we will start the patient on Unasyn 3 g every 6 hours 4-dry Aquacel silver to dressing to the third and fourth toe We will follow on clinical condition and cultures to further adjust medication if needed Thank you for this consultation will follow this patient with you
[2022-11-04] MEDS: traMADol 50 MG TAB PO PRN ×2 (00:04→17:00)
[2022-11-04] MEDS: SODIUM CHLORIDE 0.9% 1,000 ML IV SCH ×2 (01:19→14:23)
[2022-11-04] MEDS ORDERED: VANCOMYCIN TROUGH DUE 1 EACH MISC MISCELLANE ONE (05:00)
[2022-11-04 06:31] LABS: Glucose,Whole Blood 123 mg/dL (70-110)
[2022-11-04] MEDS: INSULIN ASPART (NovoLOG) 100 UNIT/ML VIAL SQ SCH ×4 (06:33→20:57)
[2022-11-04] MEDS: AMPICILLIN-SULBACTAM 3 GM in SODIUM CHLORIDE 0.9% 100 ML IVPB SCH ×4 (06:33→23:44)
[2022-11-04] MEDS: NAPROXEN 250 MG TAB PO SCH ×2 (09:18→21:34)
[2022-11-04] MEDS: FOLIC ACID 1 MG TAB PO SCH (09:19)
[2022-11-04] MEDS: MAGNESIUM OXIDE 400 MG TAB PO SCH (09:19)
[2022-11-04] MEDS: ASPIRIN 81 MG PO SCH (09:19)
[2022-11-04] MEDS: MULTIVITAMINS, THERA 1 EACH TAB PO SCH (09:20)
[2022-11-04] MEDS: CHOLECALCIFEROL 10 MCG (400 IU) TABLET PO SCH (09:20)
[2022-11-04] MEDS: methocarbamoL 500 MG TAB PO SCH ×2 (09:20→21:34)
[2022-11-04] MEDS: PROPRANOLOL 20 MG TAB PO SCH ×2 (09:20→21:32)
[2022-11-04] MEDS: GABAPENTIN 300 MG CAP PO SCH ×3 (09:22→21:36)
--- NOTE | 2022-11-04 09:42 | P.GSCN ---
History of Present Illness Consult date: 11/04/22 Reason for Consult: Cellulitis second third toes left foot. History of present illness: Patient is an 82-year-old male who presented with wounds of the dorsal surface second and third toes of left foot. These were first noticed a proximally 7010 days ago. There is been no history of chills or fevers or previous similar wounds. Patient has a 15 year history of diabetes mellitus. He has approximately 30 year pack tobacco use history, smoking one half pack of cigarettes daily for the past 60 or so years. He has a history of coronary ar willam disease status post coronary artery balloon dilation and stent placement. He denies any previous CVA. There is no history of claudication. Past Medical History Past Medical History: Coronary Artery Disease (CAD), Diabetes Mellitus, GI Bleed, Hyperlipidemia, Osteoarthritis (OA) Additional Past Medical History / Comment(s): ESSENTIAL TREMORS, GI bleed 10/2017, diverticulitis, gallstones, some loss of use of rt arm, herniated disk, spinal stenosis History of Any Multi-Drug Resistant Organisms: None Reported Past Surgical History: Cholecystectomy Additional Past Surgical History / Comment(s): 3 cardiac stents, surgery on rt arm x 3 -fx as child, left eyelid surgery Past Anesthesia/Blood Transfusion Reactions: No Reported Reaction Date of Last Stent Placement:: 1999 Past Psychological History: Anxiety, Depression, Panic Disorder, Schizophrenia Smoking Status: Current every day smoker Past Alcohol Use History: None Reported Past Drug Use History: None Reported - Past Family History Mother Family Medical History: No Reported History family Family Medical History: Coronary Artery Disease (CAD) Medications and Allergies Home Medications Medication Instructions Recorded Confirmed Type Atorvastatin [Lipitor] 40 mg PO HS 01/01/17 11/02/22 History Aspirin [Adult Low Dose Aspirin EC] 81 mg PO DAILY 05/29/18 11/02/22 History Cholecalciferol [Vitamin D3 (10 400 unit PO DAILY 05/29/18 11/02/22 History Mcg = 400 Iu)] methocarbamoL [Robaxin] 500 mg PO BID 04/04/22 11/02/22 History metFORMIN HCL 1,000 mg PO BID 06/30/22 11/02/22 History Insulin Glargine,Hum.rec.anlog 25 unit SQ DAILY@1200 07/04/22 11/02/22 History [Insulin Glargine Solostar] Folic Acid 1 mg PO DAILY 07/17/22 11/02/22 History Magnesium Oxide [Mag-Ox] 250 mg PO DAILY 07/17/22 11/02/22 History DULoxetine HCL [Cymbalta] 30 mg PO HS 11/02/22 11/02/22 History Gabapentin [Neurontin] 300 mg PO TID 11/02/22 11/02/22 History Lidocaine 5% Patch [Lidoderm 5% 1 patch TOPICAL DAILY 11/02/22 11/02/22 History Patch] Multivitamins, Thera [Multivitamin 1 tab PO DAILY 11/02/22 11/02/22 History (formulary)] Naproxen [Naprosyn] 375 mg PO BID 11/02/22 11/02/22 History Propranolol HCl [Inderal] 60 mg PO BID 11/02/22 11/02/22 History traMADol HCL 50 mg PO Q8H PRN 11/02/22 11/02/22 History Allergies Allergy/AdvReac Type Severity Reaction Status Date / Time No Known Allergies Allergy Verified 11/02/22 18:58 Surgical - Exam Osteopathic Statement: *. No significant issues noted on an osteopathic structural exam other than those noted in the History and Physical/Consult. Vital Signs Temp Pulse Resp BP Pulse Ox 98 F 65 16 129/61 99 11/02/22 13:05 11/02/22 13:05 11/02/22 13:05 11/02/22 13:05 11/02/22 13:05 - General well developed, well nourished, no distress - Neck no masses, no bruits, trachea midline, no lymphadectomy, no venous distension - Respiratory normal expansion, normal respiratory effort - Cardiovascular Rhythm: regular Heart Sounds: normal: S1, S2 - Abdomen Abdomen: soft, non tender, bowel sounds Hernia: none Femoral, popliteal, DP and PT pulses are intact bilaterally. Toes are freely movable and nontender. No leg edema is noted either lower extremity. Partial thickness wound of the dorsal surface second third toes of the left foot are noted. There is no drainage. Web spaces are clean. There is no evidence of deep space abscess or surrounding cellulitic reaction. Results - Labs 11/02/22 13:16 11/02/22 13:16 Abnormal Lab Results - Last 24 Hours (Table) 11/03/22 11/03/22 11/03/22 Range/Units 11:29 16:47 20:19 POC Glucose (mg/dL) 146 H 188 H 142 H (70-110) mg/dL 11/04/22 Range/Units 06:29 POC Glucose (mg/dL) 123 H (70-110) mg/dL Microbiology - Last 24 Hours (Table) 11/02/22 13:10 Blood Culture - Preliminary Blood No Growth after 24 hours 11/02/22 13:26 Blood Culture - Preliminary Blood No Growth after 24 hours - Imaging Additional studies: CTA films were reviewed as well as official radiology report. Assessment and Plan Assessment: #1: Diabetic vascular disease with superficial wounds of the second and third toes left foot. #2: Coronary disease status coronary artery balloon dilation/stent placement. #3: History of tobacco use/current tobacco user. Plan: #1: Given the patient's palpable pedal pulse status no peripheral vascular intervention is indicated. #2: Agree with local wound care. #3: We'll obtain arterial Doppler study for objective results. #4: We'll be happy to follow the patient as outpatient should this be necessary. Time with Patient: Less than 30
[2022-11-04 11:49] LABS: Glucose,Whole Blood 158 mg/dL (70-110)
[2022-11-04] MEDS: INSULIN DETEMIR (LEVEMIR) 100 UNIT/ML SYR SQ SCH (12:03)
--- NOTE | 2022-11-04 13:47 | P.PN ---
Subjective Progress Note Date: 11/04/22 The patient is an 82-year-old male with a PMH of type II DM, peripheral neuropathy, coronary artery disease status post multiple stents, chronic lower back pain, hypertension, and hyperlipidemia who was sent to the emergency room from the [facility]. The patient reports that he stubbed his left foot roughly a week ago and initially noticed the injury when his visiting nurse came to see him 3-4 days ago. The patient was subsequently seen at the [facility] earlier today where he was noted to have discoloration of his left third and fourth toes with some drainage. The patient was subsequently sent to the emergency room. He reports no pain at the site of his ulcers at the time of interview. He reports a history of diabetic neuropathy that he has minimal feeling in his feet. He further denied fever, chills, chest pain, shortness of breath, nausea, vomiting. A left lower extremity CTA in the emergency room revealed left peripheral vascular disease at the level of the mid leg. Left foot x-ray reveals with some periosteal reaction of the first toe with acute or remote infection not excluded. Laboratory evaluation was reviewed and was unremarkable. The case was discussed in extensive detail with the ED provider. His wound was cultured on 11/04 by infectious disease who recommended waiting for culture results prior to discharge. Vascular surgery was consulted and recommended arterial duplex with outpatient follow up. Patient was seen and examined. He reports shooting pain in his left foot. Symptoms have improved since admission. Physical examination: General: non toxic, no distress, appears at stated age, normal weight Derm: L 3rd and 4th toe ulcerations noted around 4-5 cm each with some erythema and warmth with hyperkeratosis noted, warm Head: atraumatic, normocephalic, symmetric Eyes: EOMI, no lid lag, anicteric sclera ENT: Nose and ears atraumatic Neck: No cervical lymphadenopathy, trachea midline, supple Mouth: no lip lesion, mucus membranes moist Cardiovascular: S1S2 reg, no murmur, positive dorsalis pedis pulse bilateral, no edema Lungs: CTA bilateral, no rhonchi, no rales, no accessory muscle use Ext: muscle strength 5 out of 5 in all 4 extremities grossly, no gross muscle atrophy, no contractures, Neuro: no gross focal neuro deficits Psych: Alert, oriented, appropriate affect Assessment/plan Left third and fourth toe diabetic ulcerations noted -Infectious disease consulted -Follow wound culture collected 11/04 -Agree with Vancomycin switched to Unasyn -ESR and CRP within normal limits -Follow up blood cultures Peripheral arterial disease -Vascular surgery recommendations appreciated, arterial duplex with outpatient follow up Chronic conditions: Type II DM, hypertension, hyperlipidemia, coronary artery disease -Continue with home meds -Insulin sliding scale DVT prophylaxis -Heparin subq Patient is unsure if he will be able to take care of himself at home. Will consult PT and OT. DC planning based on wound culture results and ID clearance. Objective - Vital Signs Vital signs: Vital Signs Temp 97.7 F 11/04/22 07:15 Pulse 50 L 11/04/22 07:15 Resp 18 11/04/22 07:15 BP 136/73 11/04/22 07:15 Pulse Ox 95 11/04/22 07:15 FiO2 Intake & Output 11/03/22 11/04/22 11/04/22 18:59 06:59 18:59 Intake Total 1200 1340 Output Total 550 1450 Balance 650 -110 Intake: Intake, IV Titration 700 1000 Amount Ampicillin-Sulbactam 3 gm 100 100 In Sodium Chloride 0.9% 100 ml @ 200 mls/hr IVPB Q6HR [facility] Rx#:[id number] Sodium Chloride 0.9% 1, 600 900 000 ml @ 75 mls/hr IV . [id number] [facility] Rx#:[id number] Oral 500 340 Output: Urine 550 1450 Other: Voiding Method Toilet Urinal # Voids 3 - Labs CBC & Chem 7: 11/02/22 13:16 11/02/22 13:16 Labs: Abnormal Lab Results - Last 24 Hours (Table) 11/03/22 11/03/22 11/04/22 Range/Units 16:47 20:19 06:29 POC Glucose (mg/dL) 188 H 142 H 123 H (70-110) mg/dL 11/04/22 Range/Units 11:48 POC Glucose (mg/dL) 158 H (70-110) mg/dL Microbiology - Last 24 Hours (Table) 11/02/22 13:10 Blood Culture - Preliminary Blood No Growth after 24 hours 11/02/22 13:26 Blood Culture - Preliminary Blood No Growth after 24 hours
--- NOTE | 2022-11-04 15:02 | P.PN ---
Subjective Progress Note Date: 11/04/22 Principal diagnosis: Left third and fourth toe diabetic foot wound infection Patient is 84-year-old male with a past medical history significant for diabetes mellitus did stubbed his left foot with injury to the left third and fourth toe with a partial-thickness wound consult for possible cellulitis. On today's evaluation that is 11/04/2022, the patient denies having any fever or any chills, denies any chest pain shortness of breath or cough, the patient denies pain to his left foot toes or any drainage Objective - Vital Signs Vital signs: Vital Signs Temp 97.5 F L 11/04/22 14:00 Pulse 52 L 11/04/22 14:00 Resp 19 11/04/22 14:00 BP 155/83 11/04/22 14:00 Pulse Ox 98 11/04/22 14:00 FiO2 Intake & Output 11/03/22 11/04/22 11/04/22 18:59 06:59 18:59 Intake Total 1200 1340 Output Total 550 1450 Balance 650 -110 Intake: Intake, IV Titration 700 1000 Amount Ampicillin-Sulbactam 3 gm 100 100 In Sodium Chloride 0.9% 100 ml @ 200 mls/hr IVPB Q6HR [facility] Rx#:[id number] Sodium Chloride 0.9% 1, 600 900 000 ml @ 75 mls/hr IV . [id number] [facility] Rx#:[id number] Oral 500 340 Output: Urine 550 1450 Other: Voiding Method Toilet Urinal # Voids 3 - Exam GENERAL DESCRIPTION: An elderly male lying in bed in no distress RESPIRATORY SYSTEM: Unlabored breathing , decreased breath sounds at bases HEART: S1 S2 regular rate and rhythm , ABDOMEN: Soft , no tenderness EXTREMITIES: Left third toe noticed to have slight more redness today compared to yesterday minimal drainage was cultured - Labs CBC & Chem 7: 11/02/22 13:16 11/02/22 13:16 Labs: Abnormal Lab Results - Last 24 Hours (Table) 11/03/22 11/03/22 11/04/22 Range/Units 16:47 20:19 06:29 POC Glucose (mg/dL) 188 H 142 H 123 H (70-110) mg/dL 11/04/22 Range/Units 11:48 POC Glucose (mg/dL) 158 H (70-110) mg/dL Microbiology - Last 24 Hours (Table) 11/02/22 13:10 Blood Culture - Preliminary Blood No Growth after 24 hours 11/02/22 13:26 Blood Culture - Preliminary Blood No Growth after 24 hours Assessment and Plan (1) Cellulitis of left toe Current Visit: Yes Status: Acute Code(s): L03.032 - CELLULITIS OF LEFT TOE SNOMED Code(s): 62551095 (2) Diabetic toe ulcer Current Visit: Yes Status: Acute Code(s): E11.621 - TYPE 2 DIABETES MELLITUS WITH FOOT ULCER; L97.509 - NON-PRESSURE CHRONIC ULCER OTH PRT UNSP FOOT W UNSP SEVERITY SNOMED Code(s): 636270741 Plan: 1patient with left third and fourth toe diabetic foot ulcer and concern for possible cellulitis likely from gram-positive skin nasreen underlying gram- negative infection less likely but not entirely excluded patient is a low risk for MRSA infection and x-ray did not show any evidence of bony abnormality of the third and fourth toe 2local culture has been obtained from his left third toe which was slightly cellulitic to guide further antibiotic therapy 3patient to continue with Unasyn 3 g every 6 hours 4-dry Aquacel silver to dressing to the third and fourth toe Time with Patient: Less than 30
[2022-11-04 16:43] LABS: Glucose,Whole Blood 88 mg/dL (70-110)
[2022-11-04 20:53] LABS: Glucose,Whole Blood 114 mg/dL (70-110)
[2022-11-04] MEDS ORDERED: metFORMIN 500 MG TAB PO SCH (21:00)
[2022-11-04] MEDS: ATORVASTATIN 80 MG TAB PO SCH (21:32)
[2022-11-04] MEDS: DULoxetine HCL 30 MG CAPSULE.DR PO SCH (21:34)
[2022-11-05] MEDS: traMADol 50 MG TAB PO PRN ×3 (00:51→19:29)
[2022-11-05] MEDS: SODIUM CHLORIDE 0.9% 1,000 ML IV SCH ×2 (05:43→17:17)
[2022-11-05] MEDS: AMPICILLIN-SULBACTAM 3 GM in SODIUM CHLORIDE 0.9% 100 ML IVPB SCH ×4 (05:44→23:44)
[2022-11-05 06:17] LABS: Glucose,Whole Blood 92 mg/dL (70-110)
[2022-11-05] MEDS: INSULIN ASPART (NovoLOG) 100 UNIT/ML VIAL SQ SCH ×4 (06:37→21:22)
[2022-11-05] MEDS: MAGNESIUM OXIDE 400 MG TAB PO SCH (09:39)
[2022-11-05] MEDS: methocarbamoL 500 MG TAB PO SCH ×2 (09:40→21:22)
[2022-11-05] MEDS: FOLIC ACID 1 MG TAB PO SCH (09:40)
[2022-11-05] MEDS: GABAPENTIN 300 MG CAP PO SCH ×3 (09:40→21:19)
[2022-11-05] MEDS: CHOLECALCIFEROL 10 MCG (400 IU) TABLET PO SCH (09:40)
[2022-11-05] MEDS: MULTIVITAMINS, THERA 1 EACH TAB PO SCH (09:40)
[2022-11-05] MEDS: ASPIRIN 81 MG PO SCH (09:40)
[2022-11-05] MEDS: NAPROXEN 250 MG TAB PO SCH ×2 (09:41→21:20)
[2022-11-05] MEDS: PROPRANOLOL 20 MG TAB PO SCH ×2 (09:42→21:21)
[2022-11-05 11:42] LABS: Glucose,Whole Blood 117 mg/dL (70-110)
[2022-11-05] MEDS: INSULIN DETEMIR (LEVEMIR) 100 UNIT/ML SYR SQ SCH (12:14)
--- NOTE | 2022-11-05 12:48 | P.PN ---
Subjective Progress Note Date: 11/05/22 The patient is an 82-year-old male with a PMH of type II DM, peripheral neuropathy, coronary artery disease status post multiple stents, chronic lower back pain, hypertension, and hyperlipidemia who was sent to the emergency room from the [facility]. The patient reports that he stubbed his left foot roughly a week ago and initially noticed the injury when his visiting nurse came to see him 3-4 days ago. The patient was subsequently seen at the [facility] earlier today where he was noted to have discoloration of his left third and fourth toes with some drainage. The patient was subsequently sent to the emergency room. He reports no pain at the site of his ulcers at the time of interview. He reports a history of diabetic neuropathy that he has minimal feeling in his feet. He further denied fever, chills, chest pain, shortness of breath, nausea, vomiting. A left lower extremity CTA in the emergency room revealed left peripheral vascular disease at the level of the mid leg. Left foot x-ray reveals with some periosteal reaction of the first toe with acute or remote infection not excluded. Laboratory evaluation was reviewed and was unremarkable. The case was discussed in extensive detail with the ED provider. His wound was cultured on 11/04 by infectious disease who recommended waiting for culture results prior to discharge. Vascular surgery was consulted and recommended arterial duplex with outpatient follow up. Patient was seen and examined. He reports shooting pain in his left foot. Symptoms have improved since admission. General: non toxic, no distress, appears at stated age, normal weight Derm: L 3rd and 4th toe ulcerations noted around 4-5 cm each with some erythema and warmth with hyperkeratosis noted, warm Head: atraumatic, normocephalic, symmetric Eyes: EOMI, no lid lag, anicteric sclera ENT: Nose and ears atraumatic Neck: No cervical lymphadenopathy, trachea midline, supple Mouth: no lip lesion, mucus membranes moist Cardiovascular: S1S2 reg, no murmur, positive dorsalis pedis pulse bilateral, no edema Lungs: CTA bilateral, no rhonchi, no rales, no accessory muscle use Ext: muscle strength 5 out of 5 in all 4 extremities grossly, no gross muscle atrophy, no contractures, Neuro: no gross focal neuro deficits Psych: Alert, oriented, appropriate affect Left third and fourth toe diabetic ulcerations noted -Infectious disease consulted -Follow wound culture collected 11/04 -Agree with Vancomycin switched to Unasyn (D3) -ESR and CRP within normal limits -Follow up blood cultures Peripheral arterial disease -Vascular surgery recommendations appreciated, arterial duplex with outpatient follow up Chronic conditions: Type II DM, hypertension, hyperlipidemia, coronary artery di sease -Continue with home meds -Insulin sliding scale DVT prophylaxis -Heparin subq Patient is unsure if he will be able to take care of himself at home. Will consult PT and OT. DC planning based on wound culture results and ID clearance. Objective - Vital Signs Vital signs: Vital Signs Temp 98.2 F 11/05/22 08:00 Pulse 58 L 11/05/22 09:50 Resp 16 11/05/22 08:00 BP 171/82 11/05/22 08:00 Pulse Ox 96 11/05/22 08:00 FiO2 Intake & Output 11/04/22 11/05/22 11/05/22 18:59 06:59 18:59 Output Total 600 Balance -600 Output: Urine 600 Other: Voiding Method Toilet Urinal # Voids 4 - Labs CBC & Chem 7: 11/02/22 13:16 11/02/22 13:16 Labs: Abnormal Lab Results - Last 24 Hours (Table) 11/04/22 11/05/22 Range/Units 20:51 11:37 POC Glucose (mg/dL) 114 H 117 H (70-110) mg/dL Microbiology - Last 24 Hours (Table) 11/04/22 13:30 Gram Stain - Preliminary Toe - Left Third Wound Culture - Preliminary 11/02/22 13:26 Blood Culture - Preliminary Blood No Growth after 48 hours 11/02/22 13:10 Blood Culture - Preliminary Blood No Growth after 48 hours 11/04/22 13:30 Anaerobic Culture - Preliminary Toe - Left Third
[2022-11-05 16:39] LABS: Glucose,Whole Blood 130 mg/dL (70-110)
[2022-11-05 20:35] LABS: Glucose,Whole Blood 167 mg/dL (70-110)
[2022-11-05] MEDS: ATORVASTATIN 80 MG TAB PO SCH (21:21)
[2022-11-05] MEDS: DULoxetine HCL 30 MG CAPSULE.DR PO SCH (21:22)
[2022-11-06] MEDS: SODIUM CHLORIDE 0.9% 1,000 ML IV SCH ×2 (01:22→20:17)
[2022-11-06] MEDS: AMPICILLIN-SULBACTAM 3 GM in SODIUM CHLORIDE 0.9% 100 ML IVPB SCH ×4 (06:01→23:23)
[2022-11-06 06:06] LABS: Glucose,Whole Blood 120 mg/dL (70-110)
--- NOTE | 2022-11-06 07:54 | P.PN ---
Subjective Progress Note Date: 11/05/22 Principal diagnosis: Left third and fourth toe diabetic foot wound infection Patient is 84-year-old male with a past medical history significant for diabetes mellitus did stubbed his left foot with injury to the left third and fourth toe with a partial-thickness wound consult for possible cellulitis. On today's evaluation that is 11/05/2022, the patient remains to be afebrile, the patient denies any chest pain shortness of breath or cough, the patient mentioned pain to his left foot and toe area last night however denies pain to his left foot toes or any drainage as of this afternoon and no diarrhea with antibiotic therapy Objective - Vital Signs Vital signs: Vital Signs Temp 97.5 F L 11/05/22 14:00 Pulse 56 L 11/05/22 14:00 Resp 18 11/05/22 14:00 BP 122/57 11/05/22 14:00 Pulse Ox 96 11/05/22 14:00 FiO2 Intake & Output 11/04/22 11/05/22 11/05/22 18:59 06:59 18:59 Output Total 600 Balance -600 Output: Urine 600 Other: Voiding Method Toilet Urinal # Voids 4 4 - Exam GENERAL DESCRIPTION: An elderly male lying in bed in no distress RESPIRATORY SYSTEM: Unlabored breathing , decreased breath sounds at bases HEART: S1 S2 regular rate and rhythm , ABDOMEN: Soft , no tenderness EXTREMITIES: Left third toe and fourth toe tip wounds are drying out and redness has decreased no drainage - Labs CBC & Chem 7: 11/02/22 13:16 11/02/22 13:16 Labs: Abnormal Lab Results - Last 24 Hours (Table) 11/04/22 11/05/22 11/05/22 Range/Units 20:51 11:37 16:37 POC Glucose (mg/dL) 114 H 117 H 130 H (70-110) mg/dL Microbiology - Last 24 Hours (Table) 11/02/22 13:26 Blood Culture - Preliminary Blood No Growth after 72 hours 11/02/22 13:10 Blood Culture - Preliminary Blood No Growth after 72 hours 11/04/22 13:30 Gram Stain - Preliminary Toe - Left Third Wound Culture - Preliminary 11/04/22 13:30 Anaerobic Culture - Preliminary Toe - Left Third Assessment and Plan (1) Cellulitis of left toe Current Visit: Yes Status: Acute Code(s): L03.032 - CELLULITIS OF LEFT TOE SNOMED Code(s): 03559362 (2) Diabetic toe ulcer Current Visit: Yes Status: Acute Code(s): E11.621 - TYPE 2 DIABETES MELLITUS WITH FOOT ULCER; L97.509 - NON-PRESSURE CHRONIC ULCER OTH PRT UNSP FOOT W UNSP SEVERITY SNOMED Code(s): 133316361 Plan: 1patient with left third and fourth toe diabetic foot ulcer and concern for possible cellulitis likely from gram-positive skin nasreen underlying gram- negative infection less likely but not entirely excluded patient is a low risk for MRSA infection and x-ray did not show any evidence of bony abnormality of the third and fourth toe 2local culture has been obtained from his left third toe which are currently pending 3patient to continue with Unasyn 3 g every 6 hours in view of clinical response 4-dry Aquacel silver to dressing to the third and fourth toe to be changed every 48 hours Time with Patient: Less than 30
[2022-11-06] MEDS: ASPIRIN 81 MG PO SCH (08:18)
[2022-11-06] MEDS: GABAPENTIN 300 MG CAP PO SCH ×3 (08:19→21:33)
[2022-11-06] MEDS: FOLIC ACID 1 MG TAB PO SCH (08:19)
[2022-11-06] MEDS: MAGNESIUM OXIDE 400 MG TAB PO SCH (08:19)
[2022-11-06] MEDS: MULTIVITAMINS, THERA 1 EACH TAB PO SCH (08:19)
[2022-11-06] MEDS: methocarbamoL 500 MG TAB PO SCH ×2 (08:20→21:33)
[2022-11-06] MEDS: CHOLECALCIFEROL 10 MCG (400 IU) TABLET PO SCH (08:20)
[2022-11-06] MEDS: NAPROXEN 250 MG TAB PO SCH ×2 (08:20→21:33)
[2022-11-06] MEDS: PROPRANOLOL 20 MG TAB PO SCH ×2 (08:21→21:34)
[2022-11-06] MEDS: INSULIN ASPART (NovoLOG) 100 UNIT/ML VIAL SQ SCH ×4 (08:22→21:34)
[2022-11-06] MEDS: traMADol 50 MG TAB PO PRN (08:26)
[2022-11-06 08:43] LABS: Basophils # (A) 0.05 X 10*3/uL (0.00-0.10); Basophils % (A) 0.7 %; Eosinophils # (A) 0.43 X 10*3/uL (0.04-0.35); HCT 42.2 % (39.6-50.0); HGB 13.2 g/dL (13.0-17.0); Lymphocytes # (A) 1.39 X 10*3/uL (0.90-5.00); Lymphocytes % (A) 19.5 %; MCH 31.1 pg (27.0-32.0); MCHC 31.3 g/dL (32.0-37.0); MCV 99.3 fL (80.0-97.0); Mean Platelet Volume 9.6 fL (9.5-12.2); Monocytes # (A) 0.62 X 10*3/uL (0.20-1.00); Monocytes % (A) 8.7 %; NRBC Per 100 WBC 0 /100 WBCS (0.0-0.0); Neutrophils # (A) 4.56 X 10*3/uL (1.80-7.70); Neutrophils % (A) 64.1 %; Platelet Count 201 X 10*3/uL (140-440); RBC 4.25 X 10*6/uL (4.40-5.60); RDW 14.1 % (11.5-14.5); WBC 7.12 X 10*3/uL (4.50-10.00)
[2022-11-06 09:08] LABS: Anion Gap 7.1 mmol/L (10.00-18.00); BUN/Creat Ratio 14.7 Ratio (12.00-20.00); Blood Urea Nitrogen 14.7 mg/dL (9.0-27.0); Calcium 9.1 mg/dL (8.7-10.3); Carbon Dioxide 26.9 mmol/L (20.0-27.5); Non-African American GFR(CKD) 70.8 (60.0-200.0); Potassium 5.3 mmol/L (3.5-5.5)
[2022-11-06 09:25] LABS: C Reactive Protein 0.4 mg/dL (0.00-0.80)
--- NOTE | 2022-11-06 10:19 | US ---
EXAMINATION TYPE: US arterial LE single level DATE OF EXAM: 11/04/2022 9:28 AM CLINICAL HISTORY: occlusion. Previous arterial exam. Left toe 3 and 4 discoloration/gangrene. History of: Smoker: Current Smoker Hypertension: No Diabetic: Yes Hyperlipidemia: No TIA/CVA: No Previous Vascular Surgery: No CAD: Yes Vascular Ulcers: No Claudication: No Gangrene: Left Doppler Waveforms: Right: Biphasic to multiphasic Left: Right phasic to multiphasic Pressure Gradients: Right Brachial Pressure: 134 Left Brachial Pressure: 144 Ankle-Brachial Indices: Right: 1.3 Left: 1.2 Toe Brachial Indices: Right: 0.9 Left: 0.9 IMPRESSION: 1. Bilateral normal [place]IR[place] and TBI. Note is made that the right [place] is at the upper limits of normal at 1.31. Values greater than 1.3 may be associated with noncompressible atherosclerotic vessels.
[2022-11-06 11:51] LABS: Glucose,Whole Blood 184 mg/dL (70-110)
[2022-11-06] MEDS: INSULIN DETEMIR (LEVEMIR) 100 UNIT/ML SYR SQ SCH (12:00)
--- NOTE | 2022-11-06 12:06 | P.PN ---
Subjective Progress Note Date: 11/06/22 Principal diagnosis: Cellulitis, diabetic foot wound He was seen and examined today as a follow-up for wounds on the left foot. He is currently on IV antibiotics. Cultures are pending. Infectious disease is following for wound care. Yesterday he underwent [place] of which were normal for bilateral lower extremities. Right [place] 1.3 and left [place] 1.1. Objective - Vital Signs Vital signs: Vital Signs Temp 97.4 F L 11/06/22 07:25 Pulse 47 L 11/06/22 07:25 Resp 16 11/06/22 07:25 BP 148/79 11/06/22 07:25 Pulse Ox 96 11/06/22 07:25 FiO2 Intake & Output 11/05/22 11/06/22 11/06/22 18:59 06:59 18:59 Intake Total 240 Output Total 250 Balance -250 240 Intake: Oral 240 Output: Urine 250 Other: Voiding Method Toilet Urinal # Voids 4 # Bowel Movements 1 - Exam Femoral, popliteal, DP and PT pulses are intact bilaterally. Toes are freely movable and nontender. No leg edema is noted either lower extremity. Partial thickness wound of the dorsal surface second third toes of the left foot are noted. There is no drainage. - Labs CBC & Chem 7: 11/06/22 05:10 11/06/22 05:10 Labs: Abnormal Lab Results - Last 24 Hours (Table) 11/05/22 11/05/22 11/05/22 Range/Units 11:37 16:37 20:33 RBC (4.40-5.60) X 10*6/uL MCV (80.0-97.0) fL MCHC (32.0-37.0) g/dL Immature Gran # (0.00-0.04) X 10*3/uL Eosinophils # (0.04-0.35) X 10*3/uL POC Glucose (mg/dL) 117 H 130 H 167 H (70-110) mg/dL 11/06/22 11/06/22 Range/Units 05:10 06:05 RBC 4.25 L (4.40-5.60) X 10*6/uL MCV 99.3 H (80.0-97.0) fL MCHC 31.3 L (32.0-37.0) g/dL Immature Gran # 0.07 H (0.00-0.04) X 10*3/uL Eosinophils # 0.43 H (0.04-0.35) X 10*3/uL POC Glucose (mg/dL) 120 H (70-110) mg/dL Microbiology - Last 24 Hours (Table) 11/02/22 13:26 Blood Culture - Preliminary Blood No Growth after 72 hours 11/02/22 13:10 Blood Culture - Preliminary Blood No Growth after 72 hours 11/04/22 13:30 Gram Stain - Preliminary Toe - Left Third Wound Culture - Preliminary Assessment and Plan Assessment: 1. 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 Coronary artery disease status post coronary artery balloon dilation/stent placement 3. History of tobacco use/current tobacco user Plan: There is no indication for any peripheral vascular intervention. Continue with local wound care and antibiotics per recommendations from infectious disease. We will sign off at this time. The impression and plan of care has been dictated as directed. Dr. Victor I performed a history and examination of this patient, discussed the same with the dictator. I agree with the dictator's note ,documented as a scribe. Any additional findings or plans will be noted.
--- NOTE | 2022-11-06 12:15 | P.PN ---
Subjective Progress Note Date: 11/06/22 Principal diagnosis: Left third and fourth toe diabetic foot wound infection Patient is 84-year-old male with a past medical history significant for diabetes mellitus did stubbed his left foot with injury to the left third and fourth toe with a partial-thickness wound consult for possible cellulitis. On today's evaluation that is 11/06/2022, the patient continues to be afebrile, the patient denies any chest pain shortness of breath or cough, the patient pain to his left foot and toe area has decreased in intensity patient however was noticed to have more purulent drainage on the third toe dorsum aspect today which was cultured surrounding redness has improved and no diarrhea Objective - Vital Signs Vital signs: Vital Signs Temp 97.4 F L 11/06/22 07:25 Pulse 47 L 11/06/22 07:25 Resp 16 11/06/22 07:25 BP 148/79 11/06/22 07:25 Pulse Ox 96 11/06/22 07:25 FiO2 Intake & Output 11/05/22 11/06/22 11/06/22 18:59 06:59 18:59 Intake Total 240 Output Total 250 Balance -250 240 Intake: Oral 240 Output: Urine 250 Other: Voiding Method Toilet Urinal # Voids 4 # Bowel Movements 1 - Exam GENERAL DESCRIPTION: An elderly male lying in bed in no distress RESPIRATORY SYSTEM: Unlabored breathing , decreased breath sounds at bases HEART: S1 S2 regular rate and rhythm , ABDOMEN: Soft , no tenderness EXTREMITIES: Left third toe dorsal aspect did have some purulent drainage was cultured, fourth toe tip wounds are drying out - Labs CBC & Chem 7: 11/06/22 05:10 11/06/22 05:10 Labs: Abnormal Lab Results - Last 24 Hours (Table) 11/05/22 11/05/22 11/05/22 Range/Units 11:37 16:37 20:33 RBC (4.40-5.60) X 10*6/uL MCV (80.0-97.0) fL MCHC (32.0-37.0) g/dL Immature Gran # (0.00-0.04) X 10*3/uL Eosinophils # (0.04-0.35) X 10*3/uL Anion Gap (10.00-18.00) mmol/L Glucose (70-110) mg/dL POC Glucose (mg/dL) 117 H 130 H 167 H (70-110) mg/dL 11/06/22 11/06/22 11/06/22 Range/Units 05:10 05:10 06:05 RBC 4.25 L (4.40-5.60) X 10*6/uL MCV 99.3 H (80.0-97.0) fL MCHC 31.3 L (32.0-37.0) g/dL Immature Gran # 0.07 H (0.00-0.04) X 10*3/uL Eosinophils # 0.43 H (0.04-0.35) X 10*3/uL Anion Gap 7.10 L (10.00-18.00) mmol/L Glucose 113 H (70-110) mg/dL POC Glucose (mg/dL) 120 H (70-110) mg/dL Microbiology - Last 24 Hours (Table) 11/04/22 13:30 Anaerobic Culture - Preliminary Toe - Left Third 11/02/22 13:26 Blood Culture - Preliminary Blood No Growth after 72 hours 11/02/22 13:10 Blood Culture - Preliminary Blood No Growth after 72 hours 11/04/22 13:30 Gram Stain - Preliminary Toe - Left Third Wound Culture - Preliminary Assessment and Plan (1) Cellulitis of left toe Current Visit: Yes Status: Acute Code(s): L03.032 - CELLULITIS OF LEFT TOE SNOMED Code(s): 38678811 (2) Diabetic toe ulcer Current Visit: Yes Status: Acute Code(s): E11.621 - TYPE 2 DIABETES MELLITUS WITH FOOT ULCER; L97.509 - NON-PRESSURE CHRONIC ULCER OTH PRT UNSP FOOT W UNSP SEVERITY SNOMED Code(s): 160572310 Plan: 1patient with left third and fourth toe diabetic foot ulcer and concern for possible cellulitis likely from gram-positive skin nasreen underlying gram- negative infection less likely but not entirely excluded patient is a low risk for MRSA infection and x-ray did not show any evidence of bony abnormality of the third and fourth toe 2local culture has been obtained from his left third toe which are currently pending, there was evidence of more purulence on 11/06/2022 hence culture has been repeated 3patient to continue with Unasyn 3 g every 6 hours and monitored clinical course closely 4-dry Aquacel silver to dressing to the third and fourth toe to be changed every 48 hours Time with Patient: Less than 30
[2022-11-06] MEDS: HYDROcodone/APAP 5-325MG 1 EACH TAB PO PRN ×2 (13:04→20:17)
--- NOTE | 2022-11-06 15:10 | P.PN ---
Subjective Progress Note Date: 11/06/22 Patient is an 82-year-old male with type II DM, peripheral neuropathy, coronary artery disease status post multiple stents, chronic lower back pain, hypertension, and hyperlipidemia who was sent to the emergency room from the [facility] due to worsening wound and coloration of his third left toe. In the emergency deparment he underwent an extensive evaluation. Initial laboratory analysis was remarkable for a calcium of 10.5. Left foot x-ray showed no acute fracture or dislocation with acute or remote infection unable to be excluded at the distal phalanx of the first toe. CT angiogram of the left leg demonstrated left peripheral vascular disease at the level of the mid leg. He was admitted for diabetic infection left third toe. Infectious disease and vascular surgery were consulted. Blood cultures were negative. Wound cultures were collected on 11/04. Patient was initially started on vancomycin and admitted transitioned to Unasyn. Arterial Dopplers were obtained which shows normal [place] and TBI bilateral. Vascular surgery recommendations local wound care and antibiotics. Patient seen and examined at bedside. He complains of pain in his left toe after culture was obtained today. He states that he has taken [place] in the past and tolerated it well. The Ultram has not relieved his pain and he had very odd dreams last night and thought he was in an airplane and got up and was ambulating in the hallways confused. He reports he is somewhat short of breath today. He denies any chest discomfort. General: nontoxic, mild distress due to pain, appears at stated age Derm: warm, dry Head: atraumatic, normocephalic, symmetric Eyes: EOMI, no lid lag, anicteric sclera, hard of hearing Mouth: no lip lesion, mucus membranes moist Cardiovascular: S1S2 reg, no murmur, positive posterior tibial pulse bilateral, Lungs: Course breath sounds bilateral, no rhonchi, no rales , no accessory muscle use Abdominal: soft, nontender to palpation, no guarding, no appreciable or ganomegaly Ext: no gross muscle atrophy, no edema, no contractures, dressing in place left foot-patient asked me not to remove due to current pain. Neuro: CN II-XI grossly intact, no focal neuro deficits Psych: Alert, oriented, appropriate affect Assessment/plan: Infected diabetic superficial wounds of the second and third toe, diabetic vascular disease -Outpatient follow-up with vascular surgery And no plans for immediate surgical intervention - Infectious disease recommendations appreciated: Patient is currently on Unasyn D#4 - Await wound cultures finalized Intractable pain left foot Hallucinations -Stop Ultram -Initiate [place] 5/325 as patient has tolerated this well on the past continue robaxin (takes at home) -Patient is also on Cymbalta and Neurontin. We'll continue to monitor Shortness of breath -Chest x-ray obtained and reviewed by myself. It does show some increased vasc ular prominence consistent with mild fluid overload. Currently awaiting formal radiology read. - discontinue IV fluids. Daibetes Mellitus type II - Blood Sugars reviewed. Highest in 24 hours is 184. - Conitnue same dose of levemir and SSI Chronic conditions: Type II DM, hypertension, hyperlipidemia, coronary artery disease Results of CBC, basic metabolic profile, and CRP from today were reviewed. No medication adjustments indicated at this time. DVT prophylaxis: start Heparin Discussed with: Patient, nursing Anticipated discharge: Pending culture results Anticipated discharge place: Home A total of 55 minutes was spent on the care of this complex patient more than 50% of the time was spent in counseling and care coordination. Active Medications Generic Name Dose Route Start Last Admin Trade Name Freq PRN Reason Stop Dose Admin Hydrocodone Bitart/Acetaminophen 1 each 11/06/22 12:54 11/06/22 13:04 Hydrocodone/Apap 5-325mg 1 Each Tab PO 1 each Q6HR PRN Administration Pain Aspirin 81 mg 11/03/22 09:00 11/06/22 08:18 Aspirin 81 Mg PO 81 mg DAILY DAGMAR Administration Atorvastatin Calcium 40 mg 11/03/22 21:00 11/05/22 21:21 Atorvastatin 80 Mg Tab PO 40 mg HS DAGMAR Administration Cholecalciferol 10 mcg 11/03/22 09:00 11/06/22 08:20 Cholecalciferol 10 Mcg (400 Iu) Tablet PO 10 mcg DAILY DAGMAR Administration Duloxetine HCl 30 mg 11/02/22 21:30 11/05/22 21:22 Duloxetine Hcl 30 Mg Capsule. PO 30 mg HS DAGMAR Administration Folic Acid 1 mg 11/03/22 09:00 11/06/22 08:19 Folic Acid 1 Mg Tab PO 1 mg DAILY DAGMAR Administration Gabapentin 300 mg 11/02/22 22:00 11/06/22 08:19 Gabapentin 300 Mg Cap PO 300 mg TID DAGMAR Administration Sodium Chloride 1,000 mls @ 75 mls/hr 11/02/22 21:30 11/06/22 01:22 Saline 0.9% IV 75 mls/hr .[id number] DAGMAR Administration Ampicillin Sodium/Sulbactam 100 mls @ 200 mls/hr 11/03/22 13:30 11/06/22 12:00 Sodium 3 gm/ Sodium Chloride IVPB 200 mls/hr Q6HR DAGMAR Administration Protocol Insulin Aspart 0 unit 11/03/22 07:30 11/06/22 12:00 Insulin Aspart (Novolog) 100 Unit/Ml Vial SQ 3 unit ACHS DAGMAR Administration Protocol Insulin Detemir 25 unit 11/03/22 12:00 11/06/22 12:00 Insulin Detemir (Levemir) 100 Unit/Ml Syr SQ 25 unit DAILY@1200 DAGMAR Administration Magnesium Oxide 200 mg 11/03/22 09:00 11/06/22 08:19 Magnesium Oxide 400 Mg Tab PO 200 mg DAILY DAGMAR Administration Methocarbamol 500 mg 11/02/22 21:30 11/06/22 08:20 Methocarbamol 500 Mg Tab PO 500 mg BID DAGMAR Administration Multivitamins 1 each 11/03/22 09:00 11/06/22 08:19 Multivitamins, Thera 1 Each Tab PO 1 each DAILY DAGMAR Administration Naloxone HCl 0.2 mg 11/02/22 21:28 Naloxone 0.4 Mg/Ml 1 Ml Vial IV Q2M PRN Opioid Reversal Naproxen 375 mg 11/02/22 21:30 11/06/22 08:20 Naproxen 250 Mg Tab PO 375 mg BID DAGMAR Administration Propranolol HCl 60 mg 11/02/22 21:30 11/06/22 08:21 Propranolol 20 Mg Tab PO 60 mg BID DAGMAR Administration Objective - Vital Signs Vital signs: Vital Signs Temp 97.5 F L 11/06/22 13:25 Pulse 50 L 11/06/22 13:25 Resp 16 11/06/22 13:25 BP 169/83 11/06/22 13:25 Pulse Ox 98 11/06/22 13:25 FiO2 Intake & Output 11/05/22 11/06/22 11/06/22 18:59 06:59 18:59 Intake Total 440 Output Total 250 Balance -250 440 Intake: Oral 440 Output: Urine 250 Other: Voiding Method Toilet Toilet Urinal Urinal # Voids 4 # Bowel Movements 1 - Labs CBC & Chem 7: 11/06/22 05:10 11/06/22 05:10 Labs: Abnormal Lab Results - Last 24 Hours (Table) 11/05/22 11/05/22 11/06/22 Range/Units 16:37 20:33 05:10 RBC 4.25 L (4.40-5.60) X 10*6/uL MCV 99.3 H (80.0-97.0) fL MCHC 31.3 L (32.0-37.0) g/dL Immature Gran # 0.07 H (0.00-0.04) X 10*3/uL Eosinophils # 0.43 H (0.04-0.35) X 10*3/uL Anion Gap (10.00-18.00) mmol/L Glucose (70-110) mg/dL POC Glucose (mg/dL) 130 H 167 H (70-110) mg/dL 11/06/22 11/06/22 11/06/22 Range/Units 05:10 06:05 11:45 RBC (4.40-5.60) X 10*6/uL MCV (80.0-97.0) fL MCHC (32.0-37.0) g/dL Immature Gran # (0.00-0.04) X 10*3/uL Eosinophils # (0.04-0.35) X 10*3/uL Anion Gap 7.10 L (10.00-18.00) mmol/L Glucose 113 H (70-110) mg/dL POC Glucose (mg/dL) 120 H 184 H (70-110) mg/dL Microbiology - Last 24 Hours (Table) 11/04/22 13:30 Gram Stain - Preliminary Toe - Left Third Wound Culture - Preliminary 11/04/22 13:30 Anaerobic Culture - Preliminary Toe - Left Third 11/02/22 13:26 Blood Culture - Preliminary Blood No Growth after 72 hours 11/02/22 13:10 Blood Culture - Preliminary Blood No Growth after 72 hours
--- NOTE | 2022-11-06 15:43 | XR ---
EXAMINATION TYPE: XR chest 1V portable DATE OF EXAM: 11/06/2022 2:54 PM COMPARISON: Chest radiographs from 10/05/2022 TECHNIQUE: XR chest 1V portable Portable AP radiograph of the chest. CLINICAL INDICATION:Male, 82 years old with history of shortness of breath; FINDINGS: Lungs/Pleura: There is no evidence of pleural effusion, focal consolidation, or pneumothorax. Pulmonary vascularity: Unremarkable. Heart/mediastinum: Cardiomediastinal silhouette is unremarkable. Musculoskeletal: No acute osseous pathology. IMPRESSION: No acute cardiopulmonary disease/process.
[2022-11-06 16:48] LABS: Glucose,Whole Blood 214 mg/dL (70-110)
[2022-11-06] MEDS: ENOXAPARIN 40 MG/0.4 ML SYRINGE SQ SCH (17:04)
[2022-11-06 20:08] LABS: Glucose,Whole Blood 156 mg/dL (70-110)
[2022-11-06] MEDS: DULoxetine HCL 30 MG CAPSULE.DR PO SCH (21:33)
[2022-11-06] MEDS: ATORVASTATIN 80 MG TAB PO SCH (21:33)
[2022-11-07] MEDS: HYDROcodone/APAP 5-325MG 1 EACH TAB PO PRN ×3 (03:17→21:55)
[2022-11-07] MEDS: AMPICILLIN-SULBACTAM 3 GM in SODIUM CHLORIDE 0.9% 100 ML IVPB SCH ×3 (05:46→17:08)
[2022-11-07] MEDS: SODIUM CHLORIDE 0.9% 1,000 ML IV SCH (05:47)
[2022-11-07 06:01] LABS: Glucose,Whole Blood 99 mg/dL (70-110)
[2022-11-07] MEDS: INSULIN ASPART (NovoLOG) 100 UNIT/ML VIAL SQ SCH ×6 (06:32→21:41)
[2022-11-07] MEDS: MAGNESIUM OXIDE 400 MG TAB PO SCH (07:55)
[2022-11-07] MEDS: NAPROXEN 250 MG TAB PO SCH ×2 (07:55→21:42)
[2022-11-07] MEDS: FOLIC ACID 1 MG TAB PO SCH (07:56)
[2022-11-07] MEDS: CHOLECALCIFEROL 10 MCG (400 IU) TABLET PO SCH (07:56)
[2022-11-07] MEDS: ASPIRIN 81 MG PO SCH (07:56)
[2022-11-07] MEDS: GABAPENTIN 300 MG CAP PO SCH (07:56)
[2022-11-07] MEDS: methocarbamoL 500 MG TAB PO SCH ×2 (07:56→21:42)
[2022-11-07] MEDS: PROPRANOLOL 20 MG TAB PO SCH ×2 (07:57→21:42)
[2022-11-07] MEDS: MULTIVITAMINS, THERA 1 EACH TAB PO SCH (07:57)
[2022-11-07 08:37] LABS: HGB 12.9 gm/dL (13.0-17.5); MCH 30.9 pg (25.0-35.0); MCHC 33.2 g/dL (31.0-37.0); MCV 93.2 fL (80.0-100.0); Mean Platelet Volume 7.8; Platelet Count 198 k/uL (150-450); RBC 4.18 m/uL (4.30-5.90); RDW 13.9 % (11.5-15.5); WBC 6.5 k/uL (3.8-10.6)
[2022-11-07 08:56] LABS: African American GFR (CKD) >90 (>60 ml/min/1.73 sqM); Anion Gap 4 mmol/L; Blood Urea Nitrogen 12 mg/dL (9-20); Calcium 8.5 mg/dL (8.4-10.2); Carbon Dioxide 25 mmol/L (22-30); Chloride 109 mmol/L (98-107); Glucose 140 mg/dL (74-99); Non-African American GFR(CKD) 90 (>60 ml/min/1.73 sqM); Potassium 4.6 mmol/L (3.5-5.1); Sodium 138 mmol/L (137-145)
[2022-11-07 11:28] LABS: Glucose,Whole Blood 151 mg/dL (70-110)
[2022-11-07] MEDS: INSULIN DETEMIR (LEVEMIR) 100 UNIT/ML SYR SQ SCH (11:42)
[2022-11-07] MEDS: LIDOCAINE 5% PATCH TOPICAL SCH (12:22)
--- NOTE | 2022-11-07 12:45 | P.PN ---
Subjective Progress Note Date: 11/07/22 Principal diagnosis: Left third and fourth toe diabetic foot wound infection Patient is 84-year-old male with a past medical history significant for diabetes mellitus did stubbed his left foot with injury to the left third and fourth toe with a partial-thickness wound consult for possible cellulitis. On today's evaluation that is 11/07/2022, the patient remains to be afebrile, the patient denies any chest pain shortness of breath or cough, the patient pain to his left foot and toe area has decreased in intensity patient denies any nausea no vomiting no abdominal pain or diarrhea Objective - Vital Signs Vital signs: Vital Signs Temp 97.6 F 11/07/22 07:43 Pulse 48 L 11/07/22 07:43 Resp 16 11/07/22 07:43 BP 178/83 11/07/22 07:43 Pulse Ox 99 11/07/22 07:43 FiO2 Intake & Output 11/06/22 11/07/22 11/07/22 18:59 06:59 18:59 Intake Total 840 320 Output Total 600 2000 Balance 240 -2000 320 Intake: Intake, IV Titration 200 Amount Ampicillin-Sulbactam 3 gm 200 In Sodium Chloride 0.9% 100 ml @ 200 mls/hr IVPB Q6HR DAGMAR Rx#:[id number] Oral 640 320 Output: Urine 600 2000 Other: Voiding Method Toilet Toilet Urinal Urinal # Voids 600 - Exam GENERAL DESCRIPTION: An elderly male lying in bed in no distress RESPIRATORY SYSTEM: Unlabored breathing , decreased breath sounds at bases HEART: S1 S2 regular rate and rhythm , ABDOMEN: Soft , no tenderness EXTREMITIES: Left third toe dorsal aspect did have some purulent drainage was cultured, fourth toe tip wounds are drying out - Labs CBC & Chem 7: 11/07/22 08:25 11/07/22 08:25 Labs: Abnormal Lab Results - Last 24 Hours (Table) 11/06/22 11/06/22 11/06/22 Range/Units 11:45 16:46 20:06 RBC (4.30-5.90) m/uL Hgb (13.0-17.5) gm/dL Chloride (98-107) mmol/L Glucose (74-99) mg/dL POC Glucose (mg/dL) 184 H 214 H 156 H (70-110) mg/dL 11/07/22 11/07/22 Range/Units 08:25 08:25 RBC 4.18 L (4.30-5.90) m/uL Hgb 12.9 L (13.0-17.5) gm/dL Chloride 109 H (98-107) mmol/L Glucose 140 H (74-99) mg/dL POC Glucose (mg/dL) (70-110) mg/dL Microbiology - Last 24 Hours (Table) 11/04/22 13:30 Gram Stain - Preliminary Toe - Left Third Wound Culture - Preliminary 11/06/22 11:32 Gram Stain - Preliminary Toe - Left Third Wound Culture - Preliminary 11/02/22 13:10 Blood Culture - Preliminary Blood No Growth after 96 hours 11/02/22 13:26 Blood Culture - Preliminary Blood No Growth after 96 hours 11/04/22 13:30 Anaerobic Culture - Preliminary Toe - Left Third Assessment and Plan (1) Cellulitis of left toe Current Visit: Yes Status: Acute Code(s): L03.032 - CELLULITIS OF LEFT TOE SNOMED Code(s): 51340141 (2) Diabetic toe ulcer Current Visit: Yes Status: Acute Code(s): E11.621 - TYPE 2 DIABETES MELLITUS WITH FOOT ULCER; L97.509 - NON-PRESSURE CHRONIC ULCER OTH PRT UNSP FOOT W UNSP SEVERITY SNOMED Code(s): 352098828 Plan: 1patient with left third and fourth toe diabetic foot ulcer and concern for possible cellulitis likely from gram-positive skin nasreen underlying gram- negative infection less likely but not entirely excluded patient is a low risk for MRSA infection and x-ray did not show any evidence of bony abnormality of the third and fourth toe 2local culture has been obtained from his left third toe which are currently pending, there was evidence of more purulence on 11/06/2022 hence culture has been repeated which is so far negative 3patient to continue local wound care with dry Aquacel silver to dressing to the third and fourth toe to be changed every 48 hours 4-patient seemed to have shown some improvement and third and fourth toe tips are drying out he will continue Unasyn if continued to improve to finish therapy with oral Augmentin, discuss with the primary team Time with Patient: Less than 30
[2022-11-07 14:01] VITALS: BMI 26.2
[2022-11-07 17:00] LABS: Glucose,Whole Blood 177 mg/dL (70-110)
--- NOTE | 2022-11-07 17:02 | P.PN ---
Subjective Progress Note Date: 11/07/22 (delayed charting seen at 1015) Patient is an 82-year-old male with type II DM, peripheral neuropathy, coronary artery disease status post multiple stents, chronic lower back pain, hypertension, and hyperlipidemia who was sent to the emergency room from the [facility] due to worsening wound and coloration of his third left toe. In the emergency deparment he underwent an extensive evaluation. Initial laboratory analysis was remarkable for a calcium of 10.5. Left foot x-ray showed no acute fracture or dislocation with acute or remote infection unable to be excluded at the distal phalanx of the first toe. CT angiogram of the left leg demonstrated left peripheral vascular disease at the level of the mid leg. He was admitted for diabetic infection left third toe. Infectious disease and vascular surgery were consulted. Blood cultures were negative. Wound cultures were collected on 11/04. Patient was initially started on vancomycin and admitted transitioned to Unasyn. Arterial Dopplers were obtained which shows normal [place] and TBI bilateral. Vascular surgery recommendations local wound care and antibiotics. Patient seen and examined at bedside. He is doing better today. States he still was unable to sleep last night, however did not have any hallucinations but just felt very restless. He complains of increased pain in his right thigh and states he usually uses a Lidoderm for this neuropathic pain. He also is having some pain in his left foot. He would prefer to go home on oral antibiotics but if IV antibiotics are needed he would consider senior care facility. General: nontoxic, mild distress due to pain, appears at stated age Derm: warm, dry Head: atraumatic, normocephalic, symmetric Eyes: EOMI, no lid lag, anicteric sclera, hard of hearing Mouth: no lip lesion, mucus membranes moist Cardiovascular: S1S2 reg, no murmur, positive posterior tibial pulse bilateral, Lungs: Course breath sounds bilateral, no rhonchi, no rales , no accessory muscle use Abdominal: soft, nontender to palpation, no guarding, no appreciable organomegaly Ext: no gross muscle atrophy, no edema, no contractures, dressing in place left foot-patient asked me not to remove due to current pain. Neuro: CN II-XI grossly intact, no focal neuro deficits Psych: Alert, oriented, appropriate affect Assessment/plan: Infected diabetic superficial wounds of the second and third toe, diabetic vascular disease -Outpatient follow-up with vascular surgery And no plans for immediate surgical intervention - Infectious disease recommendations appreciated: Patient is currently on Unasyn D#5, plan is home on augment in AM - Await wound cultures finalized Intractable pain left foot and right thigh Hallucinations, resolved - continue norco continue robaxin (takes at home) -increase neurontin - add lidocaine patch Diabetes Mellitus type II - Blood Sugars reviewed. Highest in 24 hours is 214. - Continue same dose of levemir and SSI Chronic conditions: Type II DM, hypertension, hyperlipidemia, coronary artery disease Shortness of breath, resolved Results of CBC, basic metabolic profile from today were reviewed. No medication adjustments indicated at this time. DVT prophylaxis: start Heparin Discussed with: Patient, nursing Anticipated discharge: AM Anticipated discharge place: Home A total of 25 minutes was spent on the care of this complex patient more than 50% of the time was spent in counseling and care coordination. Active Medications Generic Name Dose Route Start Last Admin Trade Name Freq PRN Reason Stop Dose Admin Hydrocodone Bitart/Acetaminophen 1 each 11/06/22 12:54 11/07/22 14:47 Hydrocodone/Apap 5-325mg 1 Each Tab PO 1 each Q6HR PRN Administration Pain Aspirin 81 mg 11/03/22 09:00 11/07/22 07:56 Aspirin 81 Mg PO 81 mg DAILY [facility] Administration Atorvastatin Calcium 40 mg 11/07/22 21:00 Atorvastatin 40 Mg Tab PO HS [facility] Cholecalciferol 10 mcg 11/03/22 09:00 11/07/22 07:56 Cholecalciferol 10 Mcg (400 Iu) Tablet PO 10 mcg DAILY [facility] Administration Duloxetine HCl 30 mg 11/02/22 21:30 11/06/22 21:33 Duloxetine Hcl 30 Mg Capsule.Dr PO 30 mg HS [facility] Administration Enoxaparin Sodium 40 mg 11/06/22 16:00 11/06/22 17:04 Enoxaparin 40 Mg/0.4 Ml Syringe SQ 40 mg DAILY@1600 [facility] Administration Folic Acid 1 mg 11/03/22 09:00 11/07/22 07:56 Folic Acid 1 Mg Tab PO 1 mg DAILY [facility] Administration Gabapentin 400 mg 11/07/22 16:00 Gabapentin 400 Mg Cap PO TID [facility] Ampicillin Sodium/Sulbactam 100 mls @ 200 mls/hr 11/03/22 13:30 11/07/22 11:43 Sodium 3 gm/ Sodium Chloride IVPB 200 mls/hr Q6HR [facility] Administration Protocol Insulin Aspart 0 unit 11/03/22 07:30 11/07/22 11:43 Insulin Aspart (Novolog) 100 Unit/Ml Vial SQ 3 unit ACHS [facility] Administration Protocol Insulin Aspart 2 unit 11/07/22 12:30 11/07/22 11:42 Insulin Aspart (Novolog) 100 Unit/Ml Vial SQ 2 unit AC-TID [facility] Administration Insulin Detemir 23 unit 11/07/22 12:00 11/07/22 11:42 Insulin Detemir (Levemir) 100 Unit/Ml Syr SQ 23 unit DAILY@1200 [facility] Administration Lidocaine 1 patch 11/07/22 12:00 11/07/22 12:22 Lidocaine 5% Patch TOPICAL 1 patch DAILY [facility] Administration Protocol Magnesium Oxide 200 mg 11/03/22 09:00 11/07/22 07:55 Magnesium Oxide 400 Mg Tab PO 200 mg DAILY [facility] Administration Melatonin 5 mg 11/07/22 21:00 Melatonin 5 Mg Tablet PO HS [facility] Methocarbamol 500 mg 11/02/22 21:30 11/07/22 07:56 Methocarbamol 500 Mg Tab PO 500 mg BID [facility] Administration Multivitamins 1 each 11/03/22 09:00 11/07/22 07:57 Multivitamins, Thera 1 Each Tab PO 1 each DAILY [facility] Administration Naloxone HCl 0.2 mg 11/02/22 21:28 Naloxone 0.4 Mg/Ml 1 Ml Vial IV Q2M PRN Opioid Reversal Naproxen 375 mg 11/02/22 21:30 11/07/22 07:55 Naproxen 250 Mg Tab PO 375 mg BID [facility] Administration Propranolol HCl 60 mg 11/02/22 21:30 11/07/22 07:57 Propranolol 20 Mg Tab PO 60 mg BID [facility] Administration Objective - Vital Signs Vital signs: Vital Signs Temp 98.2 F 11/07/22 14:40 Pulse 53 L 11/07/22 14:40 Resp 16 11/07/22 14:40 BP 139/75 11/07/22 14:40 Pulse Ox 96 11/07/22 14:40 FiO2 Intake & Output 11/06/22 11/07/22 11/07/22 18:59 06:59 18:59 Intake Total 840 320 Output Total 600 2000 Balance 240 -2000 320 Weight 97.522 kg Intake: Intake, IV Titration 200 Amount Ampicillin-Sulbactam 3 gm 200 In Sodium Chloride 0.9% 100 ml @ 200 mls/hr IVPB Q6HR [facility] Rx#:[id number] Oral 640 320 Output: Urine 600 2000 Other: Voiding Method Toilet Toilet Urinal Urinal # Voids 600 - Labs CBC & Chem 7: 11/07/22 08:25 11/07/22 08:25 Labs: Abnormal Lab Results - Last 24 Hours (Table) 11/06/22 11/07/22 11/07/22 Range/Units 20:06 08:25 08:25 RBC 4.18 L (4.30-5.90) m/uL Hgb 12.9 L (13.0-17.5) gm/dL Chloride 109 H (98-107) mmol/L Glucose 140 H (74-99) mg/dL POC Glucose (mg/dL) 156 H (70-110) mg/dL 11/07/22 Range/Units 11:23 RBC (4.30-5.90) m/uL Hgb (13.0-17.5) gm/dL Chloride (98-107) mmol/L Glucose (74-99) mg/dL POC Glucose (mg/dL) 151 H (70-110) mg/dL Microbiology - Last 24 Hours (Table) 11/06/22 11:32 Gram Stain - Preliminary Toe - Left Third Wound Culture - Preliminary 11/04/22 13:30 Gram Stain - Preliminary Toe - Left Third Wound Culture - Preliminary 11/02/22 13:10 Blood Culture - Preliminary Blood No Growth after 96 hours 11/02/22 13:26 Blood Culture - Preliminary Blood No Growth after 96 hours
[2022-11-07] MEDS: ENOXAPARIN 40 MG/0.4 ML SYRINGE SQ SCH (17:07)
[2022-11-07] MEDS: GABAPENTIN 400 MG CAP PO SCH ×2 (17:07→21:42)
[2022-11-07 20:17] LABS: Glucose,Whole Blood 147 mg/dL (70-110)
[2022-11-07] MEDS: ATORVASTATIN 40 MG TAB PO SCH (21:42)
[2022-11-07] MEDS: MELATONIN 5 MG TABLET PO SCH (21:42)
[2022-11-07] MEDS: DULoxetine HCL 30 MG CAPSULE.DR PO SCH (21:43)
[2022-11-08] MEDS: AMPICILLIN-SULBACTAM 3 GM in SODIUM CHLORIDE 0.9% 100 ML IVPB SCH ×5 (00:35→23:40)
[2022-11-08] MEDS: INSULIN ASPART (NovoLOG) 100 UNIT/ML VIAL SQ SCH ×7 (06:39→21:56)
[2022-11-08 06:41] LABS: Glucose,Whole Blood 104 mg/dL (70-110)
[2022-11-08] MEDS: MAGNESIUM OXIDE 400 MG TAB PO SCH (08:32)
[2022-11-08] MEDS: FOLIC ACID 1 MG TAB PO SCH (08:35)
[2022-11-08] MEDS: GABAPENTIN 400 MG CAP PO SCH (08:35)
[2022-11-08] MEDS: LIDOCAINE 5% PATCH TOPICAL SCH (08:35)
[2022-11-08] MEDS: ASPIRIN 81 MG PO SCH (08:35)
[2022-11-08] MEDS: MULTIVITAMINS, THERA 1 EACH TAB PO SCH (08:36)
[2022-11-08] MEDS: NAPROXEN 250 MG TAB PO SCH ×2 (08:36→20:07)
[2022-11-08] MEDS: PROPRANOLOL 20 MG TAB PO SCH ×2 (08:38→20:08)
[2022-11-08] MEDS: methocarbamoL 500 MG TAB PO SCH ×2 (08:39→20:07)
[2022-11-08] MEDS: CHOLECALCIFEROL 10 MCG (400 IU) TABLET PO SCH (08:39)
[2022-11-08] MEDS ORDERED: LIDOCAINE 5% PATCH TOPICAL SCH (09:00)
[2022-11-08] MEDS: GABAPENTIN 300 MG CAP PO SCH ×2 (10:16→20:07)
--- NOTE | 2022-11-08 10:48 | P.PN ---
Subjective Progress Note Date: 11/08/22 Patient is an 82-year-old male with type II DM, peripheral neuropathy, coronary artery disease status post multiple stents, chronic lower back pain, hypertension, and hyperlipidemia who was sent to the emergency room from the [facility] due to worsening wound and coloration of his third left toe. In the emergency deparment he underwent an extensive evaluation. Initial laboratory analysis was remarkable for a calcium of 10.5. Left foot x-ray showed no acute fracture or dislocation with acute or remote infection unable to be excluded at the distal phalanx of the first toe. CT angiogram of the left leg demonstrated left peripheral vascular disease at the level of the mid leg. He was admitted for diabetic infection left third toe. Infectious disease and vascular surgery were consulted. Blood cultures were negative. Wound cultures were collected on 11/04. Patient was initially started on vancomycin and admitted transitioned to Unasyn. Arterial Dopplers were obtained which shows normal [place] and TBI bilateral. Vascular surgery recommendations local wound care and antibiotics. Patient seen and examined at bedside. He feels that he cannot wake up today and it is hard to think, we discussed that it is likely due to increased neurontin from yesterday and that we should decrease this despite his neuropathy. He is in agreement. No chest, SOB, or nausea. General: nontoxic, mild distress due to pain, appears at stated age Derm: warm, dry Head: atraumatic, normocephalic, symmetric Eyes: EOMI, no lid lag, anicteric sclera, hard of hearing Mouth: no lip lesion, mucus membranes moist Cardiovascular: S1S2 reg, no murmur, positive posterior tibial pulse bilateral, Lungs: Course breath sounds bilateral, no rhonchi, no rales , no accessory muscle use Abdominal: soft, nontender to palpation, no guarding, no appreciable organomegaly Ext: no gross muscle atrophy, no edema, no contractures, dressing in place left foot-patient asked me not to remove due to current pain. Neuro: CN II-XI grossly intact, no focal neuro deficits Psych: lethargic, oriented, appropriate affect Assessment/plan: Infected diabetic superficial wounds of the second and third toe, diabetic vas cular disease -Outpatient follow-up with vascular surgery And no plans for immediate surgical intervention - Infectious disease recommendations appreciated: Patient is currently on Unasyn D#6, plan is home on augment - Await wound cultures to finalize Acute toxic encephalopathy - suspect due to increased neurontin on 11/07/22, will decreased back to home dose today Intractable pain left foot and right thigh Hallucinations, resolved - continue norco continue robaxin (takes at home) - increase neurontin - add lidocaine patch Diabetes Mellitus type II - Blood Sugars reviewed. Highest in 24 hours is 177. - Continue same dose of levemir and SSI Chronic conditions: Type II DM, hypertension, hyperlipidemia, coronary artery disease Shortness of breath, resolved Results of CBC, basic metabolic profile from today were reviewed. No medication adjustments indicated at this time. - d/w therapy he is very unsteady and may been rehab, they will re-eval tomorrow after change in neurontin dosing. DVT prophylaxis:Heparin Discussed with: Patient, nursing Anticipated discharge: AM Anticipated discharge place: Home A total of 25 minutes was spent on the care of this complex patient more than 50% of the time was spent in counseling and care coordination. Active Medications Generic Name Dose Route Start Last Admin Trade Name Freq PRN Reason Stop Dose Admin Hydrocodone Bitart/Acetaminophen 1 each 11/06/22 12:54 11/07/22 21:55 Hydrocodone/Apap 5-325mg 1 Each Tab PO 1 each Q6HR PRN Administration Pain Aspirin 81 mg 11/03/22 09:00 11/08/22 08:35 Aspirin 81 Mg PO 81 mg DAILY [facility] Administration Atorvastatin Calcium 40 mg 11/07/22 21:00 11/07/22 21:42 Atorvastatin 40 Mg Tab PO 40 mg HS [facility] Administration Cholecalciferol 10 mcg 11/03/22 09:00 11/08/22 08:39 Cholecalciferol 10 Mcg (400 Iu) Tablet PO 10 mcg DAILY [facility] Administration Duloxetine HCl 30 mg 11/02/22 21:30 11/07/22 21:43 Duloxetine Hcl 30 Mg Capsule.Dr PO 30 mg HS [facility] Administration Enoxaparin Sodium 40 mg 11/06/22 16:00 11/07/22 17:07 Enoxaparin 40 Mg/0.4 Ml Syringe SQ 40 mg DAILY@1600 [facility] Administration Folic Acid 1 mg 11/03/22 09:00 11/08/22 08:35 Folic Acid 1 Mg Tab PO 1 mg DAILY [facility] Administration Gabapentin 300 mg 11/08/22 16:00 11/08/22 10:16 Gabapentin 300 Mg Cap PO Not Given TID [facility] Ampicillin Sodium/Sulbactam 100 mls @ 200 mls/hr 11/03/22 13:30 11/08/22 06:38 Sodium 3 gm/ Sodium Chloride IVPB 200 mls/hr Q6HR [facility] Administration Protocol Insulin Aspart 0 unit 11/03/22 07:30 11/08/22 06:39 Insulin Aspart (Novolog) 100 Unit/Ml Vial SQ Not Given ACHS [facility] Protocol Insulin Aspart 2 unit 11/07/22 12:30 11/08/22 06:40 Insulin Aspart (Novolog) 100 Unit/Ml Vial SQ Not Given AC-TID [facility] Insulin Detemir 23 unit 11/07/22 12:00 11/07/22 11:42 Insulin Detemir (Levemir) 100 Unit/Ml Syr SQ 23 unit DAILY@1200 [facility] Administration Lidocaine 1 patch 11/07/22 12:00 11/08/22 08:35 Lidocaine 5% Patch TOPICAL 1 patch DAILY [facility] Administration Protocol Magnesium Oxide 200 mg 11/03/22 09:00 11/08/22 08:32 Magnesium Oxide 400 Mg Tab PO 200 mg DAILY [facility] Administration Melatonin 5 mg 11/07/22 21:00 11/07/22 21:42 Melatonin 5 Mg Tablet PO 5 mg HS [facility] Administration Methocarbamol 500 mg 11/02/22 21:30 11/08/22 08:39 Methocarbamol 500 Mg Tab PO 500 mg BID [facility] Administration Multivitamins 1 each 11/03/22 09:00 11/08/22 08:36 Multivitamins, Thera 1 Each Tab PO 1 each DAILY [facility] Administration Naloxone HCl 0.2 mg 11/02/22 21:28 Naloxone 0.4 Mg/Ml 1 Ml Vial IV Q2M PRN Opioid Reversal Naproxen 375 mg 11/02/22 21:30 11/08/22 08:36 Naproxen 250 Mg Tab PO 375 mg BID [facility] Administration Propranolol HCl 60 mg 11/02/22 21:30 11/08/22 08:38 Propranolol 20 Mg Tab PO 60 mg BID [facility] Administration Objective - Vital Signs Vital signs: Vital Signs Temp 97.4 F L 11/08/22 07:27 Pulse 52 L 11/08/22 08:40 Resp 18 11/08/22 07:27 BP 141/75 11/08/22 08:40 Pulse Ox 98 11/08/22 07:27 FiO2 Intake & Output 11/07/22 11/08/22 11/08/22 18:59 06:59 18:59 Intake Total 520 1100 Output Total 1200 Balance -680 1100 Weight 97.522 kg Intake: Intake, IV Titration 1100 Amount Ampicillin-Sulbactam 3 gm 200 In Sodium Chloride 0.9% 100 ml @ 200 mls/hr IVPB Q6HR [facility] Rx#:[id number] Sodium Chloride 0.9% 1, 900 000 ml @ 75 mls/hr IV . [id number] [facility] Rx#:[id number] Oral 520 Output: Urine 1200 Other: # Voids 4 - Labs CBC & Chem 7: 11/07/22 08:25 11/07/22 08:25 Labs: Abnormal Lab Results - Last 24 Hours (Table) 11/07/22 11/07/22 11/07/22 Range/Units : 16:55 20:15 POC Glucose (mg/dL) 151 H 177 H 147 H (70-110) mg/dL Microbiology - Last 24 Hours (Table) 11/04/22 13:30 Gram Stain - Final Toe - Left Third Wound Culture - Final 11/02/22 13:26 Blood Culture - Preliminary Blood No Growth after 120 hours 11/02/22 13:10 Blood Culture - Preliminary Blood No Growth after 120 hours 11/06/22 11:32 Gram Stain - Preliminary Toe - Left Third Wound Culture - Preliminary
[2022-11-08 11:05] LABS: Glucose,Whole Blood 273 mg/dL (70-110)
--- NOTE | 2022-11-08 12:17 | P.PN ---
Subjective Progress Note Date: 11/08/22 Principal diagnosis: Left third and fourth toe diabetic foot wound infection Patient is 84-year-old male with a past medical history significant for diabetes mellitus did stubbed his left foot with injury to the left third and fourth toe with a partial-thickness wound consult for possible cellulitis. On today's evaluation that is 11/08/2022, the patient continues to be afebrile, the patient is complaining of feeling weak and sleepy today and not feeling that good however no chest pain shortness of breath or cough no abdominal pain or any worsening pain to the left foot toes and denies diarrhea with antibiotic therapy Objective - Vital Signs Vital signs: Vital Signs Temp 97.4 F L 11/08/22 07:27 Pulse 52 L 11/08/22 08:40 Resp 18 11/08/22 07:27 BP 141/75 11/08/22 08:40 Pulse Ox 98 11/08/22 07:27 FiO2 Intake & Output 11/07/22 11/08/22 11/08/22 18:59 06:59 18:59 Intake Total 520 1100 Output Total 1200 Balance -680 1100 Weight 97.522 kg Intake: Intake, IV Titration 1100 Amount Ampicillin-Sulbactam 3 gm 200 In Sodium Chloride 0.9% 100 ml @ 200 mls/hr IVPB Q6HR [facility] Rx#:[id number] Sodium Chloride 0.9% 1, 900 000 ml @ 75 mls/hr IV . [id number] [facility] Rx#:[id number] Oral 520 Output: Urine 1200 Other: # Voids 4 - Exam GENERAL DESCRIPTION: An elderly male lying in bed in no distress RESPIRATORY SYSTEM: Unlabored breathing , decreased breath sounds at bases HEART: S1 S2 regular rate and rhythm , ABDOMEN: Soft , no tenderness EXTREMITIES: Left third toe dorsal aspect did have some purulent drainage was cultured, fourth toe tip wounds are drying out - Labs CBC & Chem 7: 11/07/22 08:25 11/07/22 08:25 Labs: Abnormal Lab Results - Last 24 Hours (Table) 11/07/22 11/07/22 11/07/22 Range/Units 11:23 16:55 20:15 POC Glucose (mg/dL) 151 H 177 H 147 H (70-110) mg/dL Microbiology - Last 24 Hours (Table) 11/02/22 13:26 Blood Culture - Preliminary Blood No Growth after 120 hours 11/02/22 13:10 Blood Culture - Preliminary Blood No Growth after 120 hours 11/06/22 11:32 Gram Stain - Preliminary Toe - Left Third Wound Culture - Preliminary 11/04/22 13:30 Gram Stain - Preliminary Toe - Left Third Wound Culture - Preliminary Assessment and Plan (1) Cellulitis of left toe Current Visit: Yes Status: Acute Code(s): L03.032 - CELLULITIS OF LEFT TOE SNOMED Code(s): 76454017 (2) Diabetic toe ulcer Current Visit: Yes Status: Acute Code(s): E11.621 - TYPE 2 DIABETES MELLITUS WITH FOOT ULCER; L97.509 - NON-PRESSURE CHRONIC ULCER OTH PRT UNSP FOOT W UNSP SEVERITY SNOMED Code(s): 982254718 Plan: 1patient with left third and fourth toe diabetic foot ulcer and concern for possible cellulitis likely from gram-positive skin nasreen underlying gram- negative infection less likely but not entirely excluded patient is a low risk for MRSA infection and x-ray did not show any evidence of bony abnormality of the third and fourth toe 2local culture has been obtained from his left third toe which are so far negative, there was evidence of more purulence on 11/06/2022 hence culture has been repeated which are currently pending 3patient to continue local wound care with dry Aquacel silver to dressing to the third and fourth toe to be changed every 48 hours 4-patient did have clinical improvement as for as third and fourth toe tips cellulitis is concerned and the wounds are are drying out he will continue Unasyn if continued to improve to finish therapy with oral Augmentin Time with Patient: Less than 30
[2022-11-08] MEDS: INSULIN DETEMIR (LEVEMIR) 100 UNIT/ML SYR SQ SCH (12:24)
[2022-11-08] MEDS: HYDROcodone/APAP 5-325MG 1 EACH TAB PO PRN ×2 (12:24→23:42)
[2022-11-08] MEDS: ENOXAPARIN 40 MG/0.4 ML SYRINGE SQ SCH (16:07)
[2022-11-08 16:32] LABS: Glucose,Whole Blood 125 mg/dL (70-110)
[2022-11-08] MEDS: MELATONIN 5 MG TABLET PO SCH (20:07)
[2022-11-08] MEDS: ATORVASTATIN 40 MG TAB PO SCH (20:07)
[2022-11-08] MEDS: DULoxetine HCL 30 MG CAPSULE.DR PO SCH (20:08)
[2022-11-08 21:45] LABS: Glucose,Whole Blood 161 mg/dL (70-110)
[2022-11-09] MEDS: AMPICILLIN-SULBACTAM 3 GM in SODIUM CHLORIDE 0.9% 100 ML IVPB SCH ×3 (05:33→17:32)
[2022-11-09 06:45] LABS: Glucose,Whole Blood 150 mg/dL (70-110)
[2022-11-09] MEDS: INSULIN ASPART (NovoLOG) 100 UNIT/ML VIAL SQ SCH ×7 (06:45→22:16)
[2022-11-09] MEDS: LIDOCAINE 5% PATCH TOPICAL SCH (08:31)
[2022-11-09] MEDS: ASPIRIN 81 MG PO SCH (08:34)
[2022-11-09] MEDS: MULTIVITAMINS, THERA 1 EACH TAB PO SCH (08:35)
[2022-11-09] MEDS: PROPRANOLOL 20 MG TAB PO SCH ×2 (08:35→22:15)
[2022-11-09] MEDS: FOLIC ACID 1 MG TAB PO SCH (08:35)
[2022-11-09] MEDS: NAPROXEN 250 MG TAB PO SCH ×2 (08:36→22:15)
[2022-11-09] MEDS: CHOLECALCIFEROL 10 MCG (400 IU) TABLET PO SCH (08:37)
[2022-11-09] MEDS: GABAPENTIN 300 MG CAP PO SCH ×3 (08:37→22:15)
[2022-11-09] MEDS: methocarbamoL 500 MG TAB PO SCH ×2 (08:37→22:14)
[2022-11-09] MEDS: MAGNESIUM OXIDE 400 MG TAB PO SCH (08:37)
[2022-11-09] MEDS: HYDROcodone/APAP 5-325MG 1 EACH TAB PO PRN ×3 (09:46→22:12)
[2022-11-09 11:27] LABS: Glucose,Whole Blood 138 mg/dL (70-110)
[2022-11-09] MEDS: INSULIN DETEMIR (LEVEMIR) 100 UNIT/ML SYR SQ SCH (12:35)
--- NOTE | 2022-11-09 16:01 | P.PN ---
Subjective Progress Note Date: 11/09/22 (delayed charting seen at 0945) Patient is an 82-year-old male with type II DM, peripheral neuropathy, coronary artery disease status post multiple stents, chronic lower back pain, hypertension, and hyperlipidemia who was sent to the emergency room from the [facility] due to worsening wound and coloration of his third left toe. In the emergency deparment he underwent an extensive evaluation. Initial laboratory analysis was remarkable for a calcium of 10.5. Left foot x-ray showed no acute fracture or dislocation with acute or remote infection unable to be excluded at the distal phalanx of the first toe. CT angiogram of the left leg demonstrated left peripheral vascular disease at the level of the mid leg. He was admitted for diabetic infection left third toe. Infectious disease and vascular surgery were consulted. Blood cultures were negative. Wound cultures were collected on 11/04. Patient was initially started on vancomycin and admitted transitioned to Unasyn. Arterial Dopplers were obtained which shows normal [place] and TBI bilateral. Vascular surgery recommendations local wound care and antibiotics. He continued to improve. Wound cultures came back negative but deep culture was obtained after antibiotics were started. He was significantly weak and not safe to return home. Patient seen and examined at bedside. He is complaining today of not getting norco oftern enough for his pain. We discussed that he is able to have it ever 6 hours but has only been requesting twice daily and that he can ask the nurses for the medication more often. He denies any chest pain or shortness of breath. He has left foot pain especially when walking on that foot. He does not feel safe to return home. General: nontoxic, no distress, appears at stated age Derm: warm, dry Head: atraumatic, normocephalic, symmetric Eyes: EOMI, no lid lag, anicteric sclera, hard of hearing Mouth: no lip lesion, mucus membranes moist Cardiovascular: S1S2 reg, no murmur, positive posterior tibial pulse bilateral, Lungs: Course breath sounds bilateral, no rhonchi, no rales , no accessory muscle use Abdominal: soft, nontender to palpation, no guarding, no appreciable organomegaly Ext: no gross muscle atrophy, no edema, no contractures, dressing in place left foot Neuro: CN II-XI grossly intact, no focal neuro deficits Psych: Awake, oriented, appropriate affect Assessment/plan: Infected diabetic superficial wounds of the second and third toe, diabetic vascular disease -Outpatient follow-up with vascular surgery, no plans for immediate surgical intervention - Infectious disease recommendations appreciated: Patient is currently on Unasyn D#7/, plan is augmentin on discharge Intractable pain left foot and right thigh Hallucinations, resolved - continue norco continue robaxin (takes at home) - neurontin - lidocaine patch Diabetes Mellitus type II - Blood Sugars reviewed. Highest in 24 hours is 1751. - Continue same dose of levemir and SSI Chronic conditions: Type II DM, hypertension, hyperlipidemia, coronary artery disease Shortness of breath, resolved Acute toxic encephalopathy improved DVT prophylaxis:Heparin Discussed with: Patient, nursing Anticipated discharge: AM Anticipated discharge place: Home A total of 25 minutes was spent on the care of this complex patient more than 50% of the time was spent in counseling and care coordination. Active Medications Generic Name Dose Route Start Last Admin Trade Name Freq PRN Reason Stop Dose Admin Hydrocodone Bitart/Acetaminophen 1 each 11/06/22 12:54 11/09/22 09:46 Hydrocodone/Apap 5-325mg 1 Each Tab PO 1 each Q6HR PRN Administration Pain Aspirin 81 mg 11/03/22 09:00 11/09/22 08:34 Aspirin 81 Mg PO 81 mg DAILY [facility] Administration Atorvastatin Calcium 40 mg 11/07/22 21:00 11/08/22 20:07 Atorvastatin 40 Mg Tab PO 40 mg HS [facility] Administration Cholecalciferol 10 mcg 11/03/22 09:00 11/09/22 08:37 Cholecalciferol 10 Mcg (400 Iu) Tablet PO 10 mcg DAILY [facility] Administration Duloxetine HCl 30 mg 11/02/22 21:30 11/08/22 20:08 Duloxetine Hcl 30 Mg Capsule.Dr PO 30 mg HS [facility] Administration Enoxaparin Sodium 40 mg 11/06/22 16:00 11/08/22 16:07 Enoxaparin 40 Mg/0.4 Ml Syringe SQ 40 mg DAILY@1600 [facility] Administration Folic Acid 1 mg 11/03/22 09:00 11/09/22 08:35 Folic Acid 1 Mg Tab PO 1 mg DAILY [facility] Administration Gabapentin 300 mg 11/08/22 16:00 11/09/22 08:37 Gabapentin 300 Mg Cap PO 300 mg TID [facility] Administration Ampicillin Sodium/Sulbactam 100 mls @ 200 mls/hr 11/03/22 13:30 11/09/22 12:35 Sodium 3 gm/ Sodium Chloride IVPB 200 mls/hr Q6HR [facility] Administration Protocol Insulin Aspart 0 unit 11/03/22 07:30 11/09/22 12:05 Insulin Aspart (Novolog) 100 Unit/Ml Vial SQ Not Given ACHS [facility] Protocol Insulin Aspart 2 unit 11/07/22 12:30 11/09/22 12:35 Insulin Aspart (Novolog) 100 Unit/Ml Vial SQ 2 unit AC-TID [facility] Administration Insulin Detemir 23 unit 11/07/22 12:00 11/09/22 12:35 Insulin Detemir (Levemir) 100 Unit/Ml Syr SQ 23 unit DAILY@1200 [facility] Administration Lidocaine 1 patch 11/07/22 12:00 11/09/22 08:31 Lidocaine 5% Patch TOPICAL 1 patch DAILY [facility] Administration Protocol Magnesium Oxide 200 mg 11/03/22 09:00 11/09/22 08:37 Magnesium Oxide 400 Mg Tab PO 200 mg DAILY [facility] Administration Melatonin 5 mg 11/07/22 21:00 11/08/22 20:07 Melatonin 5 Mg Tablet PO 5 mg HS [facility] Administration Methocarbamol 500 mg 11/02/22 21:30 11/09/22 08:37 Methocarbamol 500 Mg Tab PO 500 mg BID [facility] Administration Multivitamins 1 each 11/03/22 09:00 11/09/22 08:35 Multivitamins, Thera 1 Each Tab PO 1 each DAILY [facility] Administration Naloxone HCl 0.2 mg 11/02/22 21:28 Naloxone 0.4 Mg/Ml 1 Ml Vial IV Q2M PRN Opioid Reversal Naproxen 375 mg 11/02/22 21:30 11/09/22 08:36 Naproxen 250 Mg Tab PO 375 mg BID [facility] Administration Propranolol HCl 60 mg 11/02/22 21:30 11/09/22 08:35 Propranolol 20 Mg Tab PO 60 mg BID [facility] Administration Objective - Vital Signs Vital signs: Vital Signs Temp 97.7 F 11/09/22 13:20 Pulse 53 L 11/09/22 13:20 Resp 17 11/09/22 13:20 BP 141/80 11/09/22 13:20 Pulse Ox 95 11/09/22 13:20 FiO2 Intake & Output 11/08/22 11/09/22 11/09/22 18:59 06:59 18:59 Intake Total 200 Output Total 1125 800 Balance -1125 200 -800 Intake: Intake, IV Titration 200 Amount Ampicillin-Sulbactam 3 gm 200 In Sodium Chloride 0.9% 100 ml @ 200 mls/hr IVPB Q6HR [facility] Rx#:[id number] Output: Urine 1125 800 Other: Voiding Method Toilet Urinal # Voids 2 3 - Labs CBC & Chem 7: 11/07/22 08:25 11/07/22 08:25 Labs: Abnormal Lab Results - Last 24 Hours (Table) 11/08/22 11/08/22 11/09/22 Range/Units 16:31 21:44 06:44 POC Glucose (mg/dL) 125 H 161 H 150 H (70-110) mg/dL 11/09/22 Range/Units 11:26 POC Glucose (mg/dL) 138 H (70-110) mg/dL Microbiology - Last 24 Hours (Table) 11/06/22 11:32 Gram Stain - Final Toe - Left Third Wound Culture - Final 11/02/22 13:10 Blood Culture - Final Blood No Growth after 144 hours 11/02/22 13:26 Blood Culture - Final Blood No Growth after 144 hours 11/04/22 13:30 Anaerobic Culture - Final Toe - Left Third
[2022-11-09] MEDS: ENOXAPARIN 40 MG/0.4 ML SYRINGE SQ SCH (16:12)
[2022-11-09 16:52] LABS: Glucose,Whole Blood 194 mg/dL (70-110)
--- NOTE | 2022-11-09 19:09 | P.PN ---
Subjective Progress Note Date: 11/09/22 Principal diagnosis: Left third and fourth toe diabetic foot wound infection Patient is 84-year-old male with a past medical history significant for diabetes mellitus did stubbed his left foot with injury to the left third and fourth toe with a partial-thickness wound consult for possible cellulitis. On today's evaluation that is 11/09/2022, the patient remains to be afebrile, the patient is complaining of jerking movement of the left leg, denies any chest pain shortness with a cough no abdominal pain pain to the left foot toes has decreased intensity Objective - Vital Signs Vital signs: Vital Signs Temp 97.9 F 11/09/22 07:54 Pulse 53 L 11/09/22 07:54 Resp 17 11/09/22 07:54 BP 165/90 11/09/22 07:54 Pulse Ox 97 11/09/22 07:54 FiO2 Intake & Output 11/08/22 11/09/22 11/09/22 18:59 06:59 18:59 Intake Total 200 Output Total 1125 200 Balance -1125 200 -200 Intake: Intake, IV Titration 200 Amount Ampicillin-Sulbactam 3 gm 200 In Sodium Chloride 0.9% 100 ml @ 200 mls/hr IVPB Q6HR [facility] Rx#:[id number] Output: Urine 1125 200 Other: # Voids 2 3 - Exam GENERAL DESCRIPTION: An elderly male lying in bed in no distress RESPIRATORY SYSTEM: Unlabored breathing , decreased breath sounds at bases HEART: S1 S2 regular rate and rhythm , ABDOMEN: Soft , no tenderness EXTREMITIES: Left third toe dorsal aspect did have some purulent drainage was cultured, fourth toe tip wounds are drying out - Labs CBC & Chem 7: 11/07/22 08:25 11/07/22 08:25 Labs: Abnormal Lab Results - Last 24 Hours (Table) 11/08/22 11/08/22 11/08/22 Range/Units 11:04 16:31 21:44 POC Glucose (mg/dL) 273 H 125 H 161 H (70-110) mg/dL 11/09/22 Range/Units 06:44 POC Glucose (mg/dL) 150 H (70-110) mg/dL Microbiology - Last 24 Hours (Table) 11/06/22 11:32 Gram Stain - Final Toe - Left Third Wound Culture - Final 11/02/22 13:10 Blood Culture - Final Blood No Growth after 144 hours 11/02/22 13:26 Blood Culture - Final Blood No Growth after 144 hours 11/04/22 13:30 Anaerobic Culture - Final Toe - Left Third 11/04/22 13:30 Gram Stain - Final Toe - Left Third Wound Culture - Final Assessment and Plan (1) Cellulitis of left toe Current Visit: Yes Status: Acute Code(s): L03.032 - CELLULITIS OF LEFT TOE SNOMED Code(s): 07843921 (2) Diabetic toe ulcer Current Visit: Yes Status: Acute Code(s): E11.621 - TYPE 2 DIABETES MELLITUS WITH FOOT ULCER; L97.509 - NON-PRESSURE CHRONIC ULCER OTH PRT UNSP FOOT W UNSP SEVERITY SNOMED Code(s): 030726732 Plan: 1patient with left third and fourth toe diabetic foot ulcer and concern for possible cellulitis likely from gram-positive skin nasreen underlying gram- negative infection less likely but not entirely excluded patient is a low risk for MRSA infection and x-ray did not show any evidence of bony abnormality of the third and fourth toe 2local culture has been obtained from his left third toe which are so far negative, there was evidence of more purulence on 11/06/2022 hence culture has been repeated which are currently pending 3patient to continue local wound care with dry Aquacel silver to dressing to the third and fourth toe to be changed every 48 hours 4-patient did have clinical improvement as for as third and fourth toe tips cellulitis is concerned, patient is currently on Unasyn to continue while inpatient and transitioned to Augmentin on discharge discussed with the admitting team Time with Patient: Less than 30
[2022-11-09 20:27] LABS: Glucose,Whole Blood 153 mg/dL (70-110)
[2022-11-09] MEDS: ATORVASTATIN 40 MG TAB PO SCH (22:14)
[2022-11-09] MEDS: DULoxetine HCL 30 MG CAPSULE.DR PO SCH (22:15)
[2022-11-09] MEDS: MELATONIN 5 MG TABLET PO SCH (22:16)
[2022-11-10] MEDS: AMPICILLIN-SULBACTAM 3 GM in SODIUM CHLORIDE 0.9% 100 ML IVPB SCH ×5 (00:33→23:53)
[2022-11-10 06:23] LABS: Glucose,Whole Blood 110 mg/dL (70-110)
[2022-11-10] MEDS: HYDROcodone/APAP 5-325MG 1 EACH TAB PO PRN ×3 (06:28→20:31)
[2022-11-10] MEDS: INSULIN ASPART (NovoLOG) 100 UNIT/ML VIAL SQ SCH ×7 (06:56→21:37)
[2022-11-10] MEDS: FOLIC ACID 1 MG TAB PO SCH (08:24)
[2022-11-10] MEDS: NAPROXEN 250 MG TAB PO SCH ×2 (08:24→21:36)
[2022-11-10] MEDS: GABAPENTIN 300 MG CAP PO SCH ×3 (08:24→21:35)
[2022-11-10] MEDS: ASPIRIN 81 MG PO SCH (08:24)
[2022-11-10] MEDS: methocarbamoL 500 MG TAB PO SCH ×2 (08:24→21:35)
[2022-11-10] MEDS: CHOLECALCIFEROL 10 MCG (400 IU) TABLET PO SCH (08:26)
[2022-11-10] MEDS: MULTIVITAMINS, THERA 1 EACH TAB PO SCH (08:26)
[2022-11-10] MEDS: LIDOCAINE 5% PATCH TOPICAL SCH (08:26)
[2022-11-10] MEDS: PROPRANOLOL 20 MG TAB PO SCH ×2 (08:27→21:37)
[2022-11-10] MEDS: MAGNESIUM OXIDE 400 MG TAB PO SCH (08:27)
[2022-11-10 11:50] LABS: Glucose,Whole Blood 159 mg/dL (70-110)
[2022-11-10] MEDS: INSULIN DETEMIR (LEVEMIR) 100 UNIT/ML SYR SQ SCH (12:04)
--- NOTE | 2022-11-10 15:00 | P.PN ---
Subjective Progress Note Date: 11/10/22 (delayed charting seen at 0930) Patient is an 82-year-old male with type II DM, peripheral neuropathy, coronary artery disease status post multiple stents, chronic lower back pain, hypertension, and hyperlipidemia who was sent to the emergency room from the [facility] clinic due to worsening wound and coloration of his third left toe. In the emergency deparment he underwent an extensive evaluation. Initial laboratory analysis was remarkable for a calcium of 10.5. Left foot x-ray showed no acute fracture or dislocation with acute or remote infection unable to be excluded at the distal phalanx of the first toe. CT angiogram of the left leg demonstrated left peripheral vascular disease at the level of the mid leg. He was admitted for diabetic infection left third toe. Infectious disease and vascular surgery were consulted. Blood cultures were negative. Wound cultures were collected on 11/04. Patient was initially started on vancomycin and admitted transitioned to Unasyn. Arterial Dopplers were obtained which shows normal [place] and TBI bilateral. Vascular surgery recommendations local wound care and antibiotics. He continued to improve. Wound cultures came back negative but deep culture was obtained after antibiotics were started. He was significantly weak and not safe to return home. Patient seen and examined at bedside. He is frustrated that [facility], he stated pain is well controlled, but legs feel heavier today. General: nontoxic, no distress, appears at stated age Derm: warm, dry, third and fourht left toes with necrotic appearing dry wound w ithout malodor. Head: atraumatic, normocephalic, symmetric Eyes: EOMI, no lid lag, anicteric sclera, hard of hearing Mouth: no lip lesion, mucus membranes moist Cardiovascular: S1S2 reg, no murmur, positive posterior tibial pulse bilateral, Lungs: Course breath sounds bilateral, no rhonchi, no rales , no accessory muscle use Abdominal: soft, nontender to palpation, no guarding, no appreciable o rganomegaly Ext: no gross muscle atrophy, no edema, no contractures, dressing in place left foot Neuro: CN II-XI grossly intact, no focal neuro deficits Psych: Awake, oriented, appropriate affect Assessment/plan: Infected diabetic superficial wounds of the second and third toe, diabetic vascular disease -Outpatient follow-up with vascular surgery, no plans for immediate surgical intervention - Infectious disease recommendations appreciated: Patient is currently on Unasyn D#8/, plan is augmentin on discharge Intractable pain left foot and right thigh Hallucinations, resolved - continue norco - continue robaxin (takes at home) - neurontin - lidocaine patch Diabetes Mellitus type II - Blood Sugars reviewed. Highest in 24 hours is 194 - Continue same dose of levemir and SSI Chronic conditions: Type II DM, hypertension, hyperlipidemia, coronary artery disease Shortness of breath, resolved Acute toxic encephalopathy improved awaiting auth, recheck CBC and BMP in AM DVT prophylaxis:Heparin Discussed with: Patient, nursing, CM Anticipated discharge: AM Anticipated discharge place: SNF A total of 25 minutes was spent on the care of this complex patient more than 50% of the time was spent in counseling and care coordination. Active Medications Generic Name Dose Route Start Last Admin Trade Name Freq PRN Reason Stop Dose Admin Hydrocodone Bitart/Acetaminophen 1 each 11/06/22 12:54 11/10/22 13:04 Hydrocodone/Apap 5-325mg 1 Each Tab PO 1 each Q6HR PRN Administration Pain Aspirin 81 mg 11/03/22 09:00 11/10/22 08:24 Aspirin 81 Mg PO 81 mg DAILY [facility]AGMAR Administration Atorvastatin Calcium 40 mg 11/07/22 21:00 11/09/22 22:14 Atorvastatin 40 Mg Tab PO 40 mg HS [facility] Administration Cholecalciferol 10 mcg 11/03/22 09:00 11/10/22 08:26 Cholecalciferol 10 Mcg (400 Iu) Tablet PO 10 mcg DAILY [facility] Administration Duloxetine HCl 30 mg 11/02/22 21:30 11/09/22 22:15 Duloxetine Hcl 30 Mg Capsule.Dr PO 30 mg HS [facility] Administration Enoxaparin Sodium 40 mg 11/06/22 16:00 11/09/22 16:12 Enoxaparin 40 Mg/0.4 Ml Syringe SQ 40 mg DAILY@1600 [facility] Administration Folic Acid 1 mg 11/03/22 09:00 11/10/22 08:24 Folic Acid 1 Mg Tab PO 1 mg DAILY [facility] Administration Gabapentin 300 mg 11/08/22 16:00 11/10/22 08:24 Gabapentin 300 Mg Cap PO 300 mg TID [facility] Administration Ampicillin Sodium/Sulbactam 100 mls @ 200 mls/hr 11/03/22 13:30 11/10/22 12:04 Sodium 3 gm/ Sodium Chloride IVPB 200 mls/hr Q6HR [facility] Administration Protocol Insulin Aspart 0 unit 11/03/22 07:30 11/10/22 12:04 Insulin Aspart (Novolog) 100 Unit/Ml Vial SQ 3 unit ACHS [facility] Administration Protocol Insulin Aspart 2 unit 11/07/22 12:30 11/10/22 12:04 Insulin Aspart (Novolog) 100 Unit/Ml Vial SQ 2 unit AC-TID [facility] Administration Insulin Detemir 23 unit 11/07/22 12:00 11/10/22 12:04 Insulin Detemir (Levemir) 100 Unit/Ml Syr SQ 23 unit DAILY@1200 [facility] Administration Lidocaine 1 patch 11/07/22 12:00 11/10/22 08:26 Lidocaine 5% Patch TOPICAL 1 patch DAILY [facility] Administration Protocol Magnesium Oxide 200 mg 11/03/22 09:00 11/10/22 08:27 Magnesium Oxide 400 Mg Tab PO 200 mg DAILY [facility] Administration Melatonin 5 mg 11/07/22 21:00 11/09/22 22:16 Melatonin 5 Mg Tablet PO 5 mg HS [facility] Administration Methocarbamol 500 mg 11/02/22 21:30 11/10/22 08:24 Methocarbamol 500 Mg Tab PO 500 mg BID [facility] Administration Multivitamins 1 each 11/03/22 09:00 11/10/22 08:26 Multivitamins, Thera 1 Each Tab PO 1 each DAILY [facility] Administration Naloxone HCl 0.2 mg 11/02/22 21:28 Naloxone 0.4 Mg/Ml 1 Ml Vial IV Q2M PRN Opioid Reversal Naproxen 375 mg 11/02/22 21:30 11/10/22 08:24 Naproxen 250 Mg Tab PO 375 mg BID [facility] Administration Propranolol HCl 60 mg 11/02/22 21:30 11/10/22 08:27 Propranolol 20 Mg Tab PO Not Given BID [facility] Objective - Vital Signs Vital signs: Vital Signs Temp 98.2 F 11/10/22 00:54 Pulse 46 L 11/10/22 07:34 Resp 17 11/10/22 07:34 BP 164/78 11/10/22 07:34 Pulse Ox 94 L 11/10/22 07:34 FiO2 Intake & Output 11/09/22 11/10/22 11/10/22 18:59 06:59 18:59 Intake Total 200 Output Total 2491 160 Balance -1475 -634 Intake: Intake, IV Titration 200 Amount Ampicillin-Sulbactam 3 gm 200 In Sodium Chloride 0.9% 100 ml @ 200 mls/hr IVPB Q6HR [facility] Rx#:[id number] Output: Urine 1475 850 Other: Voiding Method Toilet Urinal Urinal - Labs CBC & Chem 7: 11/07/22 08:25 11/07/22 08:25 Labs: Abnormal Lab Results - Last 24 Hours (Table) 11/09/22 11/09/22 11/10/22 Range/Units 16:50 20:23 11:48 POC Glucose (mg/dL) 194 H 153 H 159 H (70-110) mg/dL
[2022-11-10] MEDS: ENOXAPARIN 40 MG/0.4 ML SYRINGE SQ SCH (15:47)
[2022-11-10 17:13] LABS: Glucose,Whole Blood 151 mg/dL (70-110)
--- NOTE | 2022-11-10 19:38 | P.PN ---
Subjective Progress Note Date: 11/10/22 Principal diagnosis: Left third and fourth toe diabetic foot wound infection Patient is 84-year-old male with a past medical history significant for diabetes mellitus did stubbed his left foot with injury to the left third and fourth toe with a partial-thickness wound consult for possible cellulitis. On today's evaluation that is 11/10/2022, the patient continues to be afebrile, the patient denies any chest pain shortness with a cough no abdominal pain and no diarrhea, the patient to the left foot toes has decreased intensity Objective - Vital Signs Vital signs: Vital Signs Temp 98.2 F 11/10/22 00:54 Pulse 46 L 11/10/22 07:34 Resp 17 11/10/22 07:34 BP 164/78 11/10/22 07:34 Pulse Ox 94 L 11/10/22 07:34 FiO2 Intake & Output 11/09/22 11/10/22 11/10/22 18:59 06:59 18:59 Intake Total 200 Output Total 1475 850 Balance -1475 -650 Intake: Intake, IV Titration 200 Amount Ampicillin-Sulbactam 3 gm 200 In Sodium Chloride 0.9% 100 ml @ 200 mls/hr IVPB Q6HR [facility] Rx#:[id number] Output: Urine 1475 850 Other: Voiding Method Toilet Urinal Urinal - Exam GENERAL DESCRIPTION: An elderly male lying in bed in no distress RESPIRATORY SYSTEM: Unlabored breathing , decreased breath sounds at bases HEART: S1 S2 regular rate and rhythm , ABDOMEN: Soft , no tenderness EXTREMITIES: Left third toe dorsal aspect did have some purulent drainage was cultured, fourth toe tip wounds are drying out - Labs CBC & Chem 7: 11/07/22 08:25 11/07/22 08:25 Labs: Abnormal Lab Results - Last 24 Hours (Table) 11/09/22 11/09/22 11/10/22 Range/Units 16:50 20:23 11:48 POC Glucose (mg/dL) 194 H 153 H 159 H (70-110) mg/dL Microbiology - Last 24 Hours (Table) 11/06/22 11:32 Gram Stain - Final Toe - Left Third Wound Culture - Final Assessment and Plan (1) Cellulitis of left toe Current Visit: Yes Status: Acute Code(s): L03.032 - CELLULITIS OF LEFT TOE SNOMED Code(s): 30010659 (2) Diabetic toe ulcer Current Visit: Yes Status: Acute Code(s): E11.621 - TYPE 2 DIABETES MELLITUS WITH FOOT ULCER; L97.509 - NON-PRESSURE CHRONIC ULCER OTH PRT UNSP FOOT W UNSP SEVERITY SNOMED Code(s): 369520841 Plan: 1patient with left third and fourth toe diabetic foot ulcer and concern for possible cellulitis likely from gram-positive skin nasreen underlying gram- negative infection less likely but not entirely excluded patient is a low risk for MRSA infection and x-ray did not show any evidence of bony abnormality of the third and fourth toe 2local culture has been obtained from his left third toe which are so far negative, there was evidence of more purulence on 11/06/2022 hence culture has been repeated which are currently pending 3patient to continue local wound care with dry Aquacel silver to dressing to the third and fourth toe to be changed every 48 hours 4-patient did have clinical improvement as for as third and fourth toe tips cellulitis is concerned, patient currently waiting for custodial placement awaiting [place] authorization to continue Unasyn and transitioned to oral Augmentin on discharge
[2022-11-10 21:14] LABS: Glucose,Whole Blood 212 mg/dL (70-110)
[2022-11-10] MEDS: DULoxetine HCL 30 MG CAPSULE.DR PO SCH (21:35)
[2022-11-10] MEDS: ATORVASTATIN 40 MG TAB PO SCH (21:35)
[2022-11-10] MEDS: MELATONIN 5 MG TABLET PO SCH (21:35)
[2022-11-10] MEDS ORDERED: MORPHINE SULFATE 2 MG/ML SYRINGE IVP STA (22:49)
[2022-11-11 06:04] LABS: Glucose,Whole Blood 120 mg/dL (70-110)
[2022-11-11] MEDS: INSULIN ASPART (NovoLOG) 100 UNIT/ML VIAL SQ SCH ×7 (06:06→21:24)
[2022-11-11] MEDS: HYDROcodone/APAP 5-325MG 1 EACH TAB PO PRN ×3 (06:14→23:11)
[2022-11-11] MEDS: AMPICILLIN-SULBACTAM 3 GM in SODIUM CHLORIDE 0.9% 100 ML IVPB SCH ×4 (06:15→23:11)
[2022-11-11] MEDS: LIDOCAINE 5% PATCH TOPICAL SCH (09:20)
[2022-11-11] MEDS: NAPROXEN 250 MG TAB PO SCH ×2 (09:20→21:25)
[2022-11-11] MEDS: CHOLECALCIFEROL 10 MCG (400 IU) TABLET PO SCH (09:20)
[2022-11-11] MEDS: ASPIRIN 81 MG PO SCH (09:20)
[2022-11-11] MEDS: MULTIVITAMINS, THERA 1 EACH TAB PO SCH (09:21)
[2022-11-11] MEDS: GABAPENTIN 300 MG CAP PO SCH ×3 (09:21→21:26)
[2022-11-11] MEDS: FOLIC ACID 1 MG TAB PO SCH (09:21)
[2022-11-11] MEDS: MAGNESIUM OXIDE 400 MG TAB PO SCH (09:21)
[2022-11-11] MEDS: methocarbamoL 500 MG TAB PO SCH ×2 (09:21→21:25)
[2022-11-11] MEDS: PROPRANOLOL 10 MG TAB PO SCH ×2 (10:51→21:26)
[2022-11-11 11:19] LABS: HCT 39.5 % (39.6-50.0); HGB 12.5 g/dL (13.0-17.0); MCH 30.9 pg (27.0-32.0); MCHC 31.6 g/dL (32.0-37.0); MCV 97.8 fL (80.0-97.0); Mean Platelet Volume 9.8 fL (9.5-12.2); NRBC Per 100 WBC 0 /100 WBCS (0.0-0.0); Platelet Count 196 X 10*3/uL (140-440); RBC 4.04 X 10*6/uL (4.40-5.60); RDW 14.3 % (11.5-14.5); WBC 6.46 X 10*3/uL (4.50-10.00)
[2022-11-11 11:39] LABS: African American GFR (CKD) 93.2 (60.0-200.0); Anion Gap 9.7 mmol/L (10.00-18.00); BUN/Creat Ratio 17.78 Ratio (12.00-20.00); Carbon Dioxide 24.3 mmol/L (20.0-27.5); Non-African American GFR(CKD) 80.4 (60.0-200.0); Potassium 4.4 mmol/L (3.5-5.5)
[2022-11-11 11:49] LABS: Glucose,Whole Blood 159 mg/dL (70-110)
[2022-11-11] MEDS: INSULIN DETEMIR (LEVEMIR) 100 UNIT/ML SYR SQ SCH (12:23)
--- NOTE | 2022-11-11 13:21 | P.PN ---
Subjective Progress Note Date: 11/11/22 (delayed charting seen at 1030) Patient is an 82-year-old male with type II DM, peripheral neuropathy, coronary artery disease status post multiple stents, chronic lower back pain, hypertension, and hyperlipidemia who was sent to the emergency room from the [facility] due to worsening wound and coloration of his third left toe. In the emergency deparment he underwent an extensive evaluation. Initial laboratory analysis was remarkable for a calcium of 10.5. Left foot x-ray showed no acute fracture or dislocation with acute or remote infection unable to be excluded at the distal phalanx of the first toe. CT angiogram of the left leg demonstrated left peripheral vascular disease at the level of the mid leg. He was admitted for diabetic infection left third toe. Infectious disease and vascular surgery were consulted. Blood cultures were negative. Wound cultures were collected on 11/04. Patient was initially started on vancomycin and admitted transitioned to Unasyn. Arterial Dopplers were obtained which shows normal [place] and TBI bilateral. Vascular surgery recommendations local wound care and antibiotics. He continued to improve. Wound cultures came back negative but deep culture was obtained after antibiotics were started. He was significantly weak and not safe to return home. Patient seen and examined at bedside. He complains of pain in his back and leg, he is sleeping when I enter the room. No other complaints currently. General: nontoxic, no distress, appears at stated age Derm: warm, dry, third and fourht left toes with necrotic appearing dry wound without malodor. Head: atraumatic, normocephalic, symmetric Eyes: EOMI, no lid lag, anicteric sclera, hard of hearing Mouth: no lip lesion, mucus membranes moist Cardiovascular: S1S2 reg, no murmur, positive posterior tibial pulse bilateral, Lungs: Course breath sounds bilateral, no rhonchi, no rales , no accessory muscle use Abdominal: soft, nontender to palpation, no guarding, no appreciable organomegaly Ext: no gross muscle atrophy, no edema, no contractures, dressing in place left foot Neuro: CN II-XI grossly intact, no focal neuro deficits Psych: Awake, oriented, appropriate affect Assessment/plan: Infected diabetic superficial wounds of the second and third toe, diabetic vascular disease -Outpatient follow-up with vascular surgery, no plans for immediate surgical intervention - Infectious disease recommendations appreciated: Patient is currently on Unasyn D#06/11, plan is augmentin on discharge Intractable pain left foot and right thigh Hallucinations, resolved - continue norco - continue robaxin (takes at home) - neurontin - lidocaine patch Diabetes Mellitus type II - Blood Sugars reviewed. Highest in 24 hours is 212 - Continue same dose of levemir and SSI Chronic conditions: hypertension, hyperlipidemia, coronary artery disease Shortness of breath, resolved Acute toxic encephalopathy improved awaiting auth hope to d/c [facility]14[facility]22[facility] DVT prophylaxis:Heparin Discussed with: Patient, nursing Anticipated discharge: 11/14/[address]: SNF A total of 25 minutes was spent on the care of this complex patient more than 50% of the time was spent in counseling and care coordination. Active Medications Generic Name Dose Route Start Last Admin Trade Name Freq PRN Reason Stop Dose Admin Hydrocodone Bitart/Acetaminophen 1 each 11/06/22 12:54 11/11/22 06:14 Hydrocodone/Apap 5-325mg 1 Each Tab PO 1 each Q6HR PRN Administration Pain Aspirin 81 mg 11/03/22 09:00 11/11/22 09:20 Aspirin 81 Mg PO 81 mg DAILY [facility] Administration Atorvastatin Calcium 40 mg 11/07/22 21:00 11/10/22 21:35 Atorvastatin 40 Mg Tab PO 40 mg HS [facility] Administration Cholecalciferol 10 mcg 11/03/22 09:00 11/11/22 09:20 Cholecalciferol 10 Mcg (400 Iu) Tablet PO 10 mcg DAILY [facility] Administration Duloxetine HCl 30 mg 11/02/22 21:30 11/10/22 21:35 Duloxetine Hcl 30 Mg Capsule.Dr PO 30 mg HS [facility] Administration Enoxaparin Sodium 40 mg 11/06/22 16:00 11/10/22 15:47 Enoxaparin 40 Mg/0.4 Ml Syringe SQ 40 mg DAILY@1600 [facility] Administration Folic Acid 1 mg 11/03/22 09:00 11/11/22 09:21 Folic Acid 1 Mg Tab PO 1 mg DAILY [facility] Administration Gabapentin 300 mg 11/08/22 16:00 11/11/22 09:21 Gabapentin 300 Mg Cap PO 300 mg TID [facility] Administration Ampicillin Sodium/Sulbactam 100 mls @ 200 mls/hr 11/03/22 13:30 11/11/22 12:23 Sodium 3 gm/ Sodium Chloride IVPB 200 mls/hr Q6HR [facility] Administration Protocol Insulin Aspart 0 unit 11/03/22 07:30 11/11/22 12:23 Insulin Aspart (Novolog) 100 Unit/Ml Vial SQ 3 unit ACHS [facility] Administration Protocol Insulin Aspart 2 unit 11/07/22 12:30 11/11/22 12:23 Insulin Aspart (Novolog) 100 Unit/Ml Vial SQ 2 unit AC-TID [facility] Administration Insulin Detemir 23 unit 11/07/22 12:00 11/11/22 12:23 Insulin Detemir (Levemir) 100 Unit/Ml Syr SQ 23 unit DAILY@1200 [facility] Administration Lidocaine 1 patch 11/07/22 12:00 11/11/22 09:20 Lidocaine 5% Patch TOPICAL 1 patch DAILY [facility] Administration Protocol Magnesium Oxide 200 mg 11/03/22 09:00 11/11/22 09:21 Magnesium Oxide 400 Mg Tab PO 200 mg DAILY [facility] Administration Melatonin 5 mg 11/07/22 21:00 11/10/22 21:35 Melatonin 5 Mg Tablet PO 5 mg HS [facility] Administration Methocarbamol 500 mg 11/02/22 21:30 11/11/22 09:21 Methocarbamol 500 Mg Tab PO 500 mg BID [facility] Administration Multivitamins 1 each 11/03/22 09:00 11/11/22 09:21 Multivitamins, Thera 1 Each Tab PO 1 each DAILY [facility] Administration Naloxone HCl 0.2 mg 11/02/22 21:28 Naloxone 0.4 Mg/Ml 1 Ml Vial IV Q2M PRN Opioid Reversal Naproxen 375 mg 11/02/22 21:30 11/11/22 09:20 Naproxen 250 Mg Tab PO 375 mg BID [facility] Administration Propranolol HCl 30 mg 11/11/22 09:00 11/11/22 10:51 Propranolol 10 Mg Tab PO Not Given BID [facility] Objective - Vital Signs Vital signs: Vital Signs Temp 98.3 F 11/11/22 07:50 Pulse 52 L 11/11/22 10:49 Resp 14 11/11/22 10:49 BP 140/70 11/11/22 10:49 Pulse Ox 97 11/11/22 10:49 FiO2 Intake & Output 11/10/22 11/11/22 11/11/22 18:59 06:59 18:59 Output Total 600 0 130 Balance -600 -2049 -130 Output: Urine 600 2050 130 Other: Voiding Method Urinal # Voids 1 - Labs CBC & Chem 7: 11/11/22 07:30 11/11/22 07:30 Labs: Abnormal Lab Results - Last 24 Hours (Table) 11/10/22 11/10/22 11/11/22 Range/Units 17:11 21:13 06:02 RBC (4.40-5.60) X 10*6/uL Hgb (13.0-17.0) g/dL Hct (39.6-50.0) % MCV (80.0-97.0) fL MCHC (32.0-37.0) g/dL Anion Gap (10.00-18.00) mmol/L POC Glucose (mg/dL) 151 H 212 H 120 H (70-110) mg/dL 11/11/22 11/11/22 11/11/22 Range/Units 07:30 07:30 11:48 RBC 4.04 L (4.40-5.60) X 10*6/uL Hgb 12.5 L (13.0-17.0) g/dL Hct 39.5 L (39.6-50.0) % MCV 97.8 H (80.0-97.0) fL MCHC 31.6 L (32.0-37.0) g/dL Anion Gap 9.70 L (10.00-18.00) mmol/L POC Glucose (mg/dL) 159 H (70-110) mg/dL
[2022-11-11] MEDS: ENOXAPARIN 40 MG/0.4 ML SYRINGE SQ SCH (16:28)
[2022-11-11 16:42] LABS: Glucose,Whole Blood 139 mg/dL (70-110)
[2022-11-11 20:41] LABS: Glucose,Whole Blood 214 mg/dL (70-110)
[2022-11-11] MEDS: DULoxetine HCL 30 MG CAPSULE.DR PO SCH (21:24)
[2022-11-11] MEDS: ATORVASTATIN 40 MG TAB PO SCH (21:24)
[2022-11-11] MEDS: MELATONIN 5 MG TABLET PO SCH (21:25)
[2022-11-12 06:15] LABS: Glucose,Whole Blood 95 mg/dL (70-110)
[2022-11-12] MEDS: INSULIN ASPART (NovoLOG) 100 UNIT/ML VIAL SQ SCH ×7 (06:17→21:38)
[2022-11-12] MEDS: AMPICILLIN-SULBACTAM 3 GM in SODIUM CHLORIDE 0.9% 100 ML IVPB SCH ×3 (06:18→17:43)
[2022-11-12] MEDS: MAGNESIUM OXIDE 400 MG TAB PO SCH (09:05)
[2022-11-12] MEDS: MULTIVITAMINS, THERA 1 EACH TAB PO SCH (09:05)
[2022-11-12] MEDS: ASPIRIN 81 MG PO SCH (09:05)
[2022-11-12] MEDS: FOLIC ACID 1 MG TAB PO SCH (09:05)
[2022-11-12] MEDS: NAPROXEN 250 MG TAB PO SCH ×2 (09:06→21:37)
[2022-11-12] MEDS: GABAPENTIN 300 MG CAP PO SCH ×3 (09:06→21:36)
[2022-11-12] MEDS: methocarbamoL 500 MG TAB PO SCH ×2 (09:08→21:37)
[2022-11-12] MEDS: CHOLECALCIFEROL 10 MCG (400 IU) TABLET PO SCH (09:08)
[2022-11-12] MEDS: LIDOCAINE 5% PATCH TOPICAL SCH (09:08)
[2022-11-12] MEDS: PROPRANOLOL 10 MG TAB PO SCH ×2 (09:11→21:38)
--- NOTE | 2022-11-12 09:14 | XR ---
EXAMINATION TYPE: XR Hip RT and AP Pelvis DATE OF EXAM: 11/12/2022 8:58 AM INDICATION: Patient age:Male; 82 years old; Reason for study: pain; PHH. COMPARISON: None. TECHNIQUE: The right hip was examined in the frontal and lateral projections and a AP pelvis. FINDINGS: Osteophyte formation of the acetabulum bilaterally there is joint space narrowing bilateral ly. No evidence for acute process, joint dislocation or significant soft tissue swelling. Atheroscler osis of the arterial vasculature. Degeneration changes of the lower spine. IMPRESSION: 1. No acute process. 2. 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
[2022-11-12] MEDS: HYDROcodone/APAP 5-325MG 1 EACH TAB PO PRN ×3 (09:25→22:40)
--- NOTE | 2022-11-12 10:22 | P.PN ---
Subjective Progress Note Date: 11/12/22 Patient is an 82-year-old male with type II DM, peripheral neuropathy, coronary artery disease status post multiple stents, chronic lower back pain, hypertension, and hyperlipidemia who was sent to the emergency room from the [facility] due to worsening wound and coloration of his third left toe. In the emergency deparment he underwent an extensive evaluation. Initial laboratory analysis was remarkable for a calcium of 10.5. Left foot x-ray showed no acute fracture or dislocation with acute or remote infection unable to be excluded at the distal phalanx of the first toe. CT angiogram of the left leg demonstrated left peripheral vascular disease at the level of the mid leg. He was admitted for diabetic infection left third toe. Infectious disease and vascular surgery were consulted. Blood cultures were negative. Wound cultures were collected on 11/04. Patient was initially started on vancomycin and admitted transitioned to Unasyn. Arterial Dopplers were obtained which shows normal [place] and TBI bilateral. Vascular surgery recommendations local wound care and antibiotics. He continued to improve. Wound cultures came back negative but deep culture was obtained after antibiotics were started. He was significantly weak and not safe to return home. Patient seen and examined at bedside. He had a fall last evening, was dreaming and tired to get out of bed. He is now having some right hip pain he denies and difficulty with moving the hip. General: nontoxic, no distress, appears at stated age Derm: warm, dry, left foot with dressing in place. Head: atraumatic, normocephalic, symmetric Eyes: EOMI, no lid lag, anicteric sclera, hard of hearing Mouth: no lip lesion, mucus membranes moist Cardiovascular: S1S2 reg, no murmur, positive posterior tibial pulse bilateral, Lungs: Course breath sounds bilateral, no rhonchi, no rales , no accessory muscle use Abdominal: soft, nontender to palpation, no guarding, no appreciable organomegaly Ext: no gross muscle atrophy, no edema, no contractures Neuro: CN II-XI grossly intact, no focal neuro deficits Psych: Awake, oriented, appropriate affect Assessment/plan: Infected diabetic superficial wounds of the second and third toe, diabetic vascular disease -Outpatient follow-up with vascular surgery, no plans for immediate surgical intervention - Infectious disease recommendations appreciated: Patient is currently on Unasyn D#07/12, plan is augmentin on discharge Right hip pain Fall - check x-ray: images ordered and reviewed by me osteoarthritis without acute fracture, radiology read also reviewed - pt/ot - fall precautions - bed alarm Intractable pain left foot and right thigh Hallucinations, resolved - continue norco - continue robaxin (takes at home) - neurontin - lidocaine patch Diabetes Mellitus type II - Blood Sugars reviewed. Highest in 24 hours is 214, AM fasting is 95 - Continue same dose of levemir and SSI Chronic conditions: hypertension, hyperlipidemia, coronary artery disease Shortness of breath, resolved Acute toxic encephalopathy improved awaiting auth hope to d[facility]c [facility] DVT prophylaxis:Heparin Discussed with: Patient, nursing Anticipated discharge: 11/14/[address]: SNF A total of 25 minutes was spent on the care of this complex patient more than 50% of the time was spent in counseling and care coordination. Active Medications Generic Name Dose Route Start Last Admin Trade Name Freq PRN Reason Stop Dose Admin Hydrocodone Bitart/Acetaminophen 1 each 11/06/22 12:54 11/12/22 09:25 Hydrocodone/Apap 5-325mg 1 Each Tab PO 1 each Q6HR PRN Administration Pain Aspirin 81 mg 11/03/22 09:00 11/12/22 09:05 Aspirin 81 Mg PO 81 mg DAILY [facility]AG[facility] Administration Atorvastatin Calcium 40 mg 11/07/22 21:00 11/11/22 21:24 Atorvastatin 40 Mg Tab PO 40 mg HS [facility]AGMAR Administration Cholecalciferol 10 mcg 11/03/22 09:00 11/12/22 09:08 Cholecalciferol 10 Mcg (400 Iu) Tablet PO 10 mcg DAILY [facility] Administration Duloxetine HCl 30 mg 11/02/22 21:30 11/11/22 21:24 Duloxetine Hcl 30 Mg Capsule.Dr PO 30 mg HS [facility]AG[facility] Administration Enoxaparin Sodium 40 mg 11/06/22 16:00 11/11/22 16:28 Enoxaparin 40 Mg/0.4 Ml Syringe SQ 40 mg DAILY@1600 [facility] Administration Folic Acid 1 mg 11/03/22 09:00 11/12/22 09:05 Folic Acid 1 Mg Tab PO 1 mg DAILY [facility] Administration Gabapentin 300 mg 11/08/22 16:00 11/12/22 09:06 Gabapentin 300 Mg Cap PO 300 mg TID [facility]AG[facility] Administration Ampicillin Sodium/Sulbactam 100 mls @ 200 mls/hr 11/03/22 13:30 11/12/22 06:18 Sodium 3 gm/ Sodium Chloride IVPB 200 mls/hr Q6HR [facility] Administration Protocol Insulin Aspart 0 unit 11/03/22 07:30 11/12/22 06:17 Insulin Aspart (Novolog) 100 Unit/Ml Vial SQ Not Given ACHS [facility] Protocol Insulin Aspart 2 unit 11/07/22 12:30 11/12/22 09:04 Insulin Aspart (Novolog) 100 Unit/Ml Vial SQ Not Given AC-TID [facility] Insulin Detemir 23 unit 11/07/22 12:00 11/11/22 12:23 Insulin Detemir (Levemir) 100 Unit/Ml Syr SQ 23 unit DAILY@1200 [facility] Administration Lidocaine 1 patch 11/07/22 12:00 11/12/22 09:08 Lidocaine 5% Patch TOPICAL 1 patch DAILY [facility] Administration Protocol Magnesium Oxide 200 mg 11/03/22 09:00 11/12/22 09:05 Magnesium Oxide 400 Mg Tab PO 200 mg DAILY [facility] Administration Melatonin 5 mg 11/07/22 21:00 11/11/22 21:25 Melatonin 5 Mg Tablet PO 5 mg HS [facility] Administration Methocarbamol 500 mg 11/02/22 21:30 11/12/22 09:08 Methocarbamol 500 Mg Tab PO 500 mg BID [facility] Administration Multivitamins 1 each 11/03/22 09:00 11/12/22 09:05 Multivitamins, Thera 1 Each Tab PO 1 each DAILY [facility] Administration Naloxone HCl 0.2 mg 11/02/22 21:28 Naloxone 0.4 Mg/Ml 1 Ml Vial IV Q2M PRN Opioid Reversal Naproxen 375 mg 11/02/22 21:30 11/12/22 09:06 Naproxen 250 Mg Tab PO 375 mg BID [facility] Administration Propranolol HCl 30 mg 11/11/22 09:00 11/12/22 09:11 Propranolol 10 Mg Tab PO Not Given BID [facility] Objective - Vital Signs Vital signs: Vital Signs Temp 98.0 F 11/12/22 01:54 Pulse 53 L 11/12/22 07:07 Resp 18 11/12/22 07:07 BP 157/77 11/12/22 07:07 Pulse Ox 97 11/12/22 07:07 FiO2 Intake & Output 11/11/22 11/12/22 11/12/22 18:59 06:59 18:59 Output Total 130 900 Balance -130 -900 Output: Urine 130 900 Other: Voiding Method Urinal # Voids 4 - Labs CBC & Chem 7: 11/11/22 07:30 11/11/22 07:30 Labs: Abnormal Lab Results - Last 24 Hours (Table) 11/11/22 11/11/22 11/11/22 Range/Units 07:30 07:30 11:48 RBC 4.04 L (4.40-5.60) X 10*6/uL Hgb 12.5 L (13.0-17.0) g/dL Hct 39.5 L (39.6-50.0) % MCV 97.8 H (80.0-97.0) fL MCHC 31.6 L (32.0-37.0) g/dL Anion Gap 9.70 L (10.00-18.00) mmol/L POC Glucose (mg/dL) 159 H (70-110) mg/dL 11/11/22 11/11/22 Range/Units 16:40 20:39 RBC (4.40-5.60) X 10*6/uL Hgb (13.0-17.0) g/dL Hct (39.6-50.0) % MCV (80.0-97.0) fL MCHC (32.0-37.0) g/dL Anion Gap (10.00-18.00) mmol/L POC Glucose (mg/dL) 139 H 214 H (70-110) mg/dL
[2022-11-12 11:46] LABS: Glucose,Whole Blood 145 mg/dL (70-110)
[2022-11-12] MEDS: INSULIN DETEMIR (LEVEMIR) 100 UNIT/ML SYR SQ SCH (12:40)
[2022-11-12] MEDS: ENOXAPARIN 40 MG/0.4 ML SYRINGE SQ SCH (14:37)
[2022-11-12 16:43] LABS: Glucose,Whole Blood 161 mg/dL (70-110)
[2022-11-12 20:54] LABS: Glucose,Whole Blood 149 mg/dL (70-110)
[2022-11-12] MEDS: ATORVASTATIN 40 MG TAB PO SCH (21:36)
[2022-11-12] MEDS: MELATONIN 5 MG TABLET PO SCH (21:36)
[2022-11-12] MEDS: DULoxetine HCL 30 MG CAPSULE.DR PO SCH (21:37)
[2022-11-13] MEDS: AMPICILLIN-SULBACTAM 3 GM in SODIUM CHLORIDE 0.9% 100 ML IVPB SCH ×4 (01:32→17:17)
[2022-11-13 06:13] LABS: Glucose,Whole Blood 135 mg/dL (70-110)
[2022-11-13] MEDS: HYDROcodone/APAP 5-325MG 1 EACH TAB PO PRN ×3 (06:13→20:53)
[2022-11-13] MEDS: INSULIN ASPART (NovoLOG) 100 UNIT/ML VIAL SQ SCH ×7 (06:18→22:04)
[2022-11-13] MEDS: LIDOCAINE 5% PATCH TOPICAL SCH (08:47)
[2022-11-13] MEDS: MULTIVITAMINS, THERA 1 EACH TAB PO SCH (08:49)
[2022-11-13] MEDS: methocarbamoL 500 MG TAB PO SCH ×2 (08:49→22:06)
[2022-11-13] MEDS: ASPIRIN 81 MG PO SCH (08:49)
[2022-11-13] MEDS: MAGNESIUM OXIDE 400 MG TAB PO SCH (08:49)
[2022-11-13] MEDS: GABAPENTIN 300 MG CAP PO SCH ×3 (08:50→22:06)
[2022-11-13] MEDS: FOLIC ACID 1 MG TAB PO SCH (08:50)
[2022-11-13] MEDS: PROPRANOLOL 10 MG TAB PO SCH ×2 (08:50→22:05)
[2022-11-13] MEDS: CHOLECALCIFEROL 10 MCG (400 IU) TABLET PO SCH (08:50)
[2022-11-13] MEDS: NAPROXEN 250 MG TAB PO SCH ×2 (08:50→22:05)
[2022-11-13] MEDS ORDERED: traMADol 50 MG TAB PO PRN (10:09)
[2022-11-13 11:17] LABS: Glucose,Whole Blood 213 mg/dL (70-110)
--- NOTE | 2022-11-13 12:34 | P.PN ---
Subjective Progress Note Date: 11/13/22 Principal diagnosis: Left third and fourth toe diabetic foot wound infection Patient is 84-year-old male with a past medical history significant for diabetes mellitus did stubbed his left foot with injury to the left third and fourth toe with a partial-thickness wound consult for possible cellulitis. On today's evaluation that is 11/13/2022, the patient continues to be afebrile, the patient denies any chest pain shortness of breath and no cough no abdominal pain and no diarrhea, the patient has been happening almost the pain into the right leg and hip area about 7 out of 10 and no weakness to the leg and no pain to the left foot toes Objective - Vital Signs Vital signs: Vital Signs Temp 97.9 F 11/13/22 07:22 Pulse 53 L 11/13/22 07:22 Resp 18 11/13/22 07:22 BP 163/83 11/13/22 07:22 Pulse Ox 98 11/13/22 07:22 FiO2 Intake & Output 11/12/22 11/13/22 11/13/22 18:59 06:59 18:59 Intake Total 200 Output Total 500 1300 250 Balance -500 -1100 -250 Intake: Intake, IV Titration 200 Amount Ampicillin-Sulbactam 3 gm 200 In Sodium Chloride 0.9% 100 ml @ 200 mls/hr IVPB Q6HR [facility] Rx#:[id number] Output: Urine 500 1300 250 Other: Voiding Method Urinal Urinal Urinal # Voids 1 - Exam GENERAL DESCRIPTION: An elderly male lying in bed in no distress RESPIRATORY SYSTEM: Unlabored breathing , decreased breath sounds at bases HEART: S1 S2 regular rate and rhythm , ABDOMEN: Soft , no tenderness EXTREMITIES: Left third toe and the left fourth toe tip wounds are drying out, no redness or drainage was noticed - Labs CBC & Chem 7: 11/11/22 07:30 11/11/22 07:30 Labs: Abnormal Lab Results - Last 24 Hours (Table) 11/12/22 11/12/22 11/13/22 Range/Units 16:41 20:53 06:11 POC Glucose (mg/dL) 161 H 149 H 135 H (70-110) mg/dL 11/13/22 Range/Units 11:16 POC Glucose (mg/dL) 213 H (70-110) mg/dL Assessment and Plan (1) Cellulitis of left toe Current Visit: Yes Status: Acute Code(s): L03.032 - CELLULITIS OF LEFT TOE SNOMED Code(s): 74603362 (2) Diabetic toe ulcer Current Visit: Yes Status: Acute Code(s): E11.621 - TYPE 2 DIABETES MELLITUS WITH FOOT ULCER; L97.509 - NON-PRESSURE CHRONIC ULCER OTH PRT UNSP FOOT W UNSP SEVERITY SNOMED Code(s): 222380306 Plan: 1patient with left third and fourth toe diabetic foot ulcer and concern for possible cellulitis , patient did have multiple cultures which has been negative for any resistant pathogen 2patient to continue local wound care with dry Aquacel silver to dressing to the third and fourth toe to be changed every 48 hours 3-patient slowly clinically improving as for as third and fourth toe tips cellulitis is concerned, patient currently waiting for alf placement awaiting [place] authorization patient to continue with IV Unasyn while inpatient and may consider short course of oral Augmentin on discharge Time with Patient: Less than 30
--- NOTE | 2022-11-13 14:15 | P.PN ---
Subjective Progress Note Date: 11/13/22 She was seen and examined at bedside. Patient denies chest pain, shortness breath, nausea, vomiting, fever, or chills. Patient is awaiting SNF placement. Objective - Vital Signs Vital signs: Vital Signs Temp 97.6 F 11/13/22 13:39 Pulse 50 L 11/13/22 13:39 Resp 18 11/13/22 13:39 BP 148/75 11/13/22 13:39 Pulse Ox 93 L 11/13/22 13:39 FiO2 Intake & Output 11/12/22 11/13/22 11/13/22 18:59 06:59 18:59 Intake Total 200 Output Total 500 1300 250 Balance -500 -1100 -250 Intake: Intake, IV Titration 200 Amount Ampicillin-Sulbactam 3 gm 200 In Sodium Chloride 0.9% 100 ml @ 200 mls/hr IVPB Q6HR [facility] Rx#:[id number] Output: Urine 500 1300 250 Other: Voiding Method Urinal Urinal Urinal # Voids 1 - Exam General: [non toxic], [no distress], [appears at stated age] Derm: [warm], [dry] Head: [atraumatic], [normocephalic], [symmetric] Eyes: [EOMI], [no lid lag], [anicteric sclera] Mouth: [no lip lesion], [mucus membranes moist] Cardiovascular: [S1S2 reg], [no murmur], [positive posterior tibial pulse bilateral], Lungs: [CTA bilateral], [no rhonchi, no rales] , [no accessory muscle use] Abdominal: [soft], [ nontender to palpation], [no guarding], [no appreciable organomegaly] Ext: [no gross muscle atrophy], [no edema], [no contractures] Neuro: [ CN II-XI grossly intact], [no focal neuro deficits] Psych: [Alert], [oriented], [appropriate affect] - Labs CBC & Chem 7: 11/11/22 07:30 11/11/22 07:30 Labs: Abnormal Lab Results - Last 24 Hours (Table) 11/12/22 11/12/22 11/13/22 Range/Units 16:41 20:53 06:11 POC Glucose (mg/dL) 161 H 149 H 135 H (70-110) mg/dL 11/13/22 Range/Units 11:16 POC Glucose (mg/dL) 213 H (70-110) mg/dL Assessment and Plan Assessment: Infected diabetic superficial wounds of the second and third toe, diabetic vascular disease -Outpatient follow-up with vascular surgery, no plans for immediate surgical intervention - Infectious disease recommendations appreciated: Patient is currently on Unasyn D#/, plan is augmentin on discharge - patient currently waiting SNF with [place] authorization. Per ID to continue with IV Unasyn while inpatient and may consider short course of oral Augmentin on discharge Right hip pain Fall - check x-ray: images ordered and reviewed by me osteoarthritis without acute fracture, radiology read also reviewed - pt/ot - fall precautions - bed alarm Intractable pain left foot and right thigh Hallucinations, resolved - continue norco - continue robaxin (takes at home) - neurontin - lidocaine patch Diabetes Mellitus type II - Blood Sugars reviewed. Highest in 24 hours is 214, AM fasting is 95 - Continue same dose of levemir and SSI Chronic conditions: hypertension, hyperlipidemia, coronary artery disease Shortness of breath, resolved Acute toxic encephalopathy improved awaiting auth hope to d[facility]c [facility]14[facility]22[facility] DVT prophylaxis:Heparin Discussed with: Patient, nursing Anticipated discharge: 11/14/[address]: SNF A total of 25 minutes was spent on the care of this complex patient more than 50% of the time was spent in counseling and care coordination.
[2022-11-13] MEDS: INSULIN DETEMIR (LEVEMIR) 100 UNIT/ML SYR SQ SCH (14:17)
[2022-11-13 16:14] LABS: Glucose,Whole Blood 136 mg/dL (70-110)
[2022-11-13] MEDS: ENOXAPARIN 40 MG/0.4 ML SYRINGE SQ SCH (17:17)
[2022-11-13 20:44] LABS: Glucose,Whole Blood 187 mg/dL (70-110)
[2022-11-13] MEDS ORDERED: QUEtiapine 25 MG TAB PO ONE (21:00)
[2022-11-13] MEDS: MELATONIN 5 MG TABLET PO SCH (22:06)
[2022-11-13] MEDS: ATORVASTATIN 40 MG TAB PO SCH (22:06)
[2022-11-13] MEDS: DULoxetine HCL 30 MG CAPSULE.DR PO SCH (22:06)
[2022-11-14] MEDS: AMPICILLIN-SULBACTAM 3 GM in SODIUM CHLORIDE 0.9% 100 ML IVPB SCH ×4 (00:07→17:04)
[2022-11-14 06:06] LABS: Glucose,Whole Blood 125 mg/dL (70-110)
[2022-11-14] MEDS: INSULIN ASPART (NovoLOG) 100 UNIT/ML VIAL SQ SCH ×7 (06:09→22:03)
[2022-11-14] MEDS: FOLIC ACID 1 MG TAB PO SCH (07:53)
[2022-11-14] MEDS: GABAPENTIN 300 MG CAP PO SCH ×3 (07:53→22:03)
[2022-11-14] MEDS: MULTIVITAMINS, THERA 1 EACH TAB PO SCH (07:54)
[2022-11-14] MEDS: MAGNESIUM OXIDE 400 MG TAB PO SCH (07:54)
[2022-11-14] MEDS: methocarbamoL 500 MG TAB PO SCH ×2 (07:54→22:42)
[2022-11-14] MEDS: ASPIRIN 81 MG PO SCH (07:54)
[2022-11-14] MEDS: PROPRANOLOL 10 MG TAB PO SCH ×2 (07:55→22:42)
[2022-11-14] MEDS: NAPROXEN 250 MG TAB PO SCH ×2 (07:55→22:42)
[2022-11-14] MEDS: CHOLECALCIFEROL 10 MCG (400 IU) TABLET PO SCH (07:55)
[2022-11-14] MEDS: LIDOCAINE 5% PATCH TOPICAL SCH (07:56)
[2022-11-14 09:00] LABS: Basophils # (A) 0.06 X 10*3/uL (0.00-0.10); Basophils % (A) 0.8 %; Eosinophils # (A) 0.39 X 10*3/uL (0.04-0.35); Eosinophils % (A) 5.2 %; HCT 38.5 % (39.6-50.0); HGB 12.2 g/dL (13.0-17.0); Immature Grans, Automated 0.8 %; Lymphocytes # (A) 1.42 X 10*3/uL (0.90-5.00); MCH 30.7 pg (27.0-32.0); MCHC 31.7 g/dL (32.0-37.0); MCV 96.7 fL (80.0-97.0); Mean Platelet Volume 9.5 fL (9.5-12.2); Monocytes # (A) 0.61 X 10*3/uL (0.20-1.00); Monocytes % (A) 8.2 %; NRBC Per 100 WBC 0 /100 WBCS (0.0-0.0); Neutrophils # (A) 4.94 X 10*3/uL (1.80-7.70); Platelet Count 169 X 10*3/uL (140-440); RBC 3.98 X 10*6/uL (4.40-5.60); RDW 14.3 % (11.5-14.5); WBC 7.48 X 10*3/uL (4.50-10.00)
[2022-11-14 09:18] LABS: African American GFR (CKD) 97.8 (60.0-200.0); Albumin 3.7 g/dL (3.8-4.9); Albumin/Globulin Ratio 2.18 (1.60-3.17); BUN/Creat Ratio 22.5 Ratio (12.00-20.00); Calcium 9.1 mg/dL (8.7-10.3); Globulin 1.7 g/dL (1.6-3.3); Non-African American GFR(CKD) 84.4 (60.0-200.0); Potassium 4.6 mmol/L (3.5-5.5); Total Bilirubin 0.3 mg/dL (0.30-1.20); Total Protein 5.4 g/dL (6.2-8.2)
[2022-11-14 11:33] LABS: Glucose,Whole Blood 159 mg/dL (70-110)
[2022-11-14] MEDS: INSULIN DETEMIR (LEVEMIR) 100 UNIT/ML SYR SQ SCH (12:21)
[2022-11-14] MEDS: HYDROcodone/APAP 5-325MG 1 EACH TAB PO PRN ×2 (13:00→22:05)
--- NOTE | 2022-11-14 14:08 | P.PN ---
Subjective Progress Note Date: 11/14/22 Patient is an 82-year-old male with type II DM, peripheral neuropathy, coronary artery disease status post multiple stents, chronic lower back pain, hypertension, and hyperlipidemia who was sent to the emergency room from the [facility] due to worsening wound and coloration of his third left toe. In t emergency deparment he underwent an extensive evaluation. Initial laboratory analysis was remarkable for a calcium of 10.5. Left foot x-ray showed no acute fracture or dislocation with acute or remote infection unable to be excluded at the distal phalanx of the first toe. CT angiogram of the left leg demonstrated left peripheral vascular disease at the level of the mid leg. He was admitted for diabetic infection left third toe. Infectious disease and vascular surgery were consulted. Blood cultures were negative. Wound cultures were collected on 11/04. Patient was initially started on vancomycin and admitted transitioned to Unasyn. Arterial Dopplers were obtained which shows normal [place] and TBI bilateral. Vascular surgery recommendations local wound care and antibiotics. He continued to improve. Wound cultures came back negative but deep culture was obtained after antibiotics were started. He was significantly weak and not safe to return home. Patient seen and examined at bedside. No acute events overnight. Patient has no complaints today. States he feels weak. General: nontoxic, no distress, appears at stated age Derm: warm, dry, left foot with dressing in place. Head: atraumatic, normocephalic, symmetric Eyes: EOMI, no lid lag, anicteric sclera, hard of hearing Mouth: no lip lesion, mucus membranes moist Cardiovascular: S1S2 reg, no murmur Lungs: Course breath sounds bilateral, no rhonchi, no rales , no accessory muscle use Abdominal: soft, nontender to palpation, no guarding, no appreciable organomegaly Ext: no gross muscle atrophy, no edema, no contractures Neuro: no focal neuro deficits Psych: Awake, oriented, appropriate affect Infected diabetic superficial wounds of the second and third toe, diabetic vascular disease -Outpatient follow-up with vascular surgery, no plans for immediate surgical intervention -Infectious disease recommendations appreciated: Patient is currently on Unasyn D#07/12, plan is augmentin on discharge Right hip pain Fall -Xray - Osteoarthritis without acute fracture, radiology read also reviewed -PTOT -Fall precautions -Bed alarm Intractable pain left foot and right thigh Hallucinations, resolved -Continue norco -Continue robaxin (takes at home) -Neurontin -Lidocaine patch Diabetes Mellitus type II -Blood Sugars reviewed. Highest in 24 hours is 213, AM fasting is 125 -Continue same dose of levemir and SSI Chronic conditions: hypertension, hyperlipidemia, coronary artery disease Shortness of breath, resolved Acute toxic encephalopathy improved Medically stable. Awaiting insurance authorization. DVT prophylaxis: Heparin Objective - Vital Signs Vital signs: Vital Signs Temp 97.4 F L 11/14/22 11:43 Pulse 52 L 11/14/22 11:43 Resp 16 11/14/22 11:43 BP 149/75 11/14/22 11:43 Pulse Ox 95 11/14/22 11:43 FiO2 Intake & Output 11/13/22 11/14/22 11/14/22 18:59 06:59 18:59 Output Total 1100 900 Balance -1100 -900 Output: Urine 1100 900 Other: Voiding Method Urinal Urinal # Voids 1 # Bowel Movements 1 - Labs CBC & Chem 7: 11/14/22 04:49 11/14/22 04:49 Labs: Abnormal Lab Results - Last 24 Hours (Table) 11/13/22 11/13/22 11/14/22 Range/Units 16:12 20:43 04:49 RBC 3.98 L (4.40-5.60) X 10*6/uL Hgb 12.2 L (13.0-17.0) g/dL Hct 38.5 L (39.6-50.0) % MCHC 31.7 L (32.0-37.0) g/dL Immature Gran # 0.06 H (0.00-0.04) X 10*3/uL Eosinophils # 0.39 H (0.04-0.35) X 10*3/uL BUN/Creatinine Ratio (12.00-20.00) Ratio POC Glucose (mg/dL) 136 H 187 H (70-110) mg/dL AST (14-35) U/L ALT (10-49) U/L Total Protein (6.2-8.2) g/dL Albumin (3.8-4.9) g/dL 11/14/22 11/14/22 11/14/22 Range/Units 04:49 06:05 11:32 RBC (4.40-5.60) X 10*6/uL Hgb (13.0-17.0) g/dL Hct (39.6-50.0) % MCHC (32.0-37.0) g/dL Immature Gran # (0.00-0.04) X 10*3/uL Eosinophils # (0.04-0.35) X 10*3/uL BUN/Creatinine Ratio 22.50 H (12.00-20.00) Ratio POC Glucose (mg/dL) 125 H 159 H (70-110) mg/dL AST 39 H (14-35) U/L ALT 58 H (10-49) U/L Total Protein 5.4 L (6.2-8.2) g/dL Albumin 3.7 L (3.8-4.9) g/dL
[2022-11-14 16:33] LABS: Glucose,Whole Blood 181 mg/dL (70-110)
[2022-11-14] MEDS: ENOXAPARIN 40 MG/0.4 ML SYRINGE SQ SCH (17:03)
[2022-11-14 21:39] LABS: Glucose,Whole Blood 193 mg/dL (70-110)
--- NOTE | 2022-11-14 21:41 | P.PN ---
Subjective Progress Note Date: 11/14/22 Principal diagnosis: Left third and fourth toe diabetic foot wound infection Patient is 84-year-old male with a past medical history significant for diabetes mellitus did stubbed his left foot with injury to the left third and fourth toe with a partial-thickness wound consult for possible cellulitis. On today's evaluation that is 11/14/2022, the patient remains to be afebrile, the patient denies any chest pain shortness of breath and no cough no abdominal pain and no diarrhea, and the patient denies pain to the left foot toes Objective - Vital Signs Vital signs: Vital Signs Temp 97.4 F L 11/14/22 11:43 Pulse 52 L 11/14/22 11:43 Resp 16 11/14/22 11:43 BP 149/75 11/14/22 11:43 Pulse Ox 95 11/14/22 11:43 FiO2 Intake & Output 11/13/22 11/14/22 11/14/22 18:59 06:59 18:59 Output Total 1100 900 Balance -1100 -900 Output: Urine 1100 900 Other: Voiding Method Urinal Urinal # Voids 1 # Bowel Movements 1 - Exam GENERAL DESCRIPTION: An elderly male lying in bed in no distress RESPIRATORY SYSTEM: Unlabored breathing , decreased breath sounds at bases HEART: S1 S2 regular rate and rhythm , ABDOMEN: Soft , no tenderness EXTREMITIES: Left third toe and the left fourth toe tip wounds are drying out, no redness or drainage was noticed - Labs CBC & Chem 7: 11/14/22 04:49 11/14/22 04:49 Labs: Abnormal Lab Results - Last 24 Hours (Table) 11/13/22 11/13/22 11/14/22 Range/Units 16:12 20:43 04:49 RBC 3.98 L (4.40-5.60) X 10*6/uL Hgb 12.2 L (13.0-17.0) g/dL Hct 38.5 L (39.6-50.0) % MCHC 31.7 L (32.0-37.0) g/dL Immature Gran # 0.06 H (0.00-0.04) X 10*3/uL Eosinophils # 0.39 H (0.04-0.35) X 10*3/uL BUN/Creatinine Ratio (12.00-20.00) Ratio POC Glucose (mg/dL) 136 H 187 H (70-110) mg/dL AST (14-35) U/L ALT (10-49) U/L Total Protein (6.2-8.2) g/dL Albumin (3.8-4.9) g/dL 11/14/22 11/14/22 11/14/22 Range/Units 04:49 06:05 11:32 RBC (4.40-5.60) X 10*6/uL Hgb (13.0-17.0) g/dL Hct (39.6-50.0) % MCHC (32.0-37.0) g/dL Immature Gran # (0.00-0.04) X 10*3/uL Eosinophils # (0.04-0.35) X 10*3/uL BUN/Creatinine Ratio 22.50 H (12.00-20.00) Ratio POC Glucose (mg/dL) 125 H 159 H (70-110) mg/dL AST 39 H (14-35) U/L ALT 58 H (10-49) U/L Total Protein 5.4 L (6.2-8.2) g/dL Albumin 3.7 L (3.8-4.9) g/dL Assessment and Plan (1) Cellulitis of left toe Current Visit: Yes Status: Acute Code(s): L03.032 - CELLULITIS OF LEFT TOE SNOMED Code(s): 38612903 (2) Diabetic toe ulcer Current Visit: Yes Status: Acute Code(s): E11.621 - TYPE 2 DIABETES MELLITUS WITH FOOT ULCER; L97.509 - NON-PRESSURE CHRONIC ULCER OTH PRT UNSP FOOT W UNSP SEVERITY SNOMED Code(s): 744802983 Plan: 1patient with left third and fourth toe diabetic foot ulcer and concern for possible cellulitis , patient did have multiple cultures which has been negative for any resistant pathogen 2patient to continue local wound care with dry Aquacel silver to dressing to the third and fourth toe to be changed every 48 hours 3-patient did have improvement of his third and fourth toe tips cellulitis, we will switch him over to oral Augmentin currently waiting for placement Time with Patient: Less than 30
[2022-11-14] MEDS: ATORVASTATIN 40 MG TAB PO SCH (22:03)
[2022-11-14] MEDS: MELATONIN 5 MG TABLET PO SCH (22:03)
[2022-11-14] MEDS: DULoxetine HCL 30 MG CAPSULE.DR PO SCH (22:42)
[2022-11-15 06:12] LABS: Glucose,Whole Blood 117 mg/dL (70-110)
[2022-11-15] MEDS: INSULIN ASPART (NovoLOG) 100 UNIT/ML VIAL SQ SCH ×9 (06:16→17:03)
[2022-11-15] MEDS: HYDROcodone/APAP 5-325MG 1 EACH TAB PO PRN ×2 (07:45→15:21)
[2022-11-15] MEDS ORDERED: AMOXIC-POT CLAV 875-125MG 1 EACH TAB PO SCH (09:00)
[2022-11-15] MEDS: MULTIVITAMINS, THERA 1 EACH TAB PO SCH (09:39)
[2022-11-15] MEDS: CHOLECALCIFEROL 10 MCG (400 IU) TABLET PO SCH (09:39)
[2022-11-15] MEDS: FOLIC ACID 1 MG TAB PO SCH (09:39)
[2022-11-15] MEDS: GABAPENTIN 300 MG CAP PO SCH ×2 (09:39→15:20)
[2022-11-15] MEDS: ASPIRIN 81 MG PO SCH (09:40)
[2022-11-15] MEDS: methocarbamoL 500 MG TAB PO SCH (09:40)
[2022-11-15] MEDS: MAGNESIUM OXIDE 400 MG TAB PO SCH (09:41)
[2022-11-15] MEDS: NAPROXEN 250 MG TAB PO SCH (09:41)
[2022-11-15] MEDS: LIDOCAINE 5% PATCH TOPICAL SCH (09:43)
[2022-11-15 11:13] LABS: Glucose,Whole Blood 226 mg/dL (70-110)
[2022-11-15] MEDS: INSULIN DETEMIR (LEVEMIR) 100 UNIT/ML SYR SQ SCH (12:24)
[2022-11-15] MEDS: PROPRANOLOL 10 MG TAB PO SCH (12:26)
--- NOTE | 2022-11-15 12:43 | P.PN ---
Subjective Progress Note Date: 11/15/22 Principal diagnosis: Left third and fourth toe diabetic foot wound infection Patient is 84-year-old male with a past medical history significant for diabetes mellitus did stubbed his left foot with injury to the left third and fourth toe with a partial-thickness wound consult for possible cellulitis. On today's evaluation that is 11/15/2022, the patient continues to be afebrile, the patient denies chest pain shortness of breath and no cough , the patient denies nausea no vomiting abdominal pain and no diarrhea, and the patient denies pain to the left foot toes Objective - Vital Signs Vital signs: Vital Signs Temp 97.6 F 11/15/22 07:59 Pulse 57 L 11/15/22 08:00 Resp 14 11/15/22 07:59 BP 142/78 11/15/22 07:59 Pulse Ox 97 11/15/22 07:59 FiO2 Intake & Output 11/14/22 11/15/22 11/15/22 18:59 06:59 18:59 Intake Total 1080 Output Total 600 350 350 Balance 480 -350 -350 Intake: Oral 1080 Output: Urine 600 350 350 Other: Voiding Method Urinal # Voids 1 - Exam GENERAL DESCRIPTION: An elderly male lying in bed in no distress RESPIRATORY SYSTEM: Unlabored breathing , decreased breath sounds at bases HEART: S1 S2 regular rate and rhythm , ABDOMEN: Soft , no tenderness EXTREMITIES: Left third toe and the left fourth toe tip wounds are currently dressed no drainage on the dressing - Labs CBC & Chem 7: 11/14/22 04:49 11/14/22 04:49 Labs: Abnormal Lab Results - Last 24 Hours (Table) 11/14/22 11/14/22 11/15/22 Range/Units 16:32 21:37 06:10 POC Glucose (mg/dL) 181 H 193 H 117 H (70-110) mg/dL 11/15/22 Range/Units 11:12 POC Glucose (mg/dL) 226 H (70-110) mg/dL Assessment and Plan (1) Cellulitis of left toe Current Visit: Yes Status: Acute Code(s): L03.032 - CELLULITIS OF LEFT TOE SNOMED Code(s): 77705544 (2) Diabetic toe ulcer Current Visit: Yes Status: Acute Code(s): E11.621 - TYPE 2 DIABETES MELLITUS WITH FOOT ULCER; L97.509 - NON-PRESSURE CHRONIC ULCER OTH PRT UNSP FOOT W UNSP SEVERITY SNOMED Code(s): 044923121 Plan: 1patient with left third and fourth toe diabetic foot ulcer and concern for possible cellulitis , patient did have multiple cultures which has been negative for any resistant pathogen 2patient to continue local wound care with dry Aquacel silver to dressing to the third and fourth toe to be changed every 48 hours 3-patient did have improvement of his third and fourth toe tips cellulitis, patient to continue with a short course of oral Augmentin 5 days on discharge Time with Patient: Less than 30
--- NOTE | 2022-11-15 13:57 | P.DS ---
Providers Date of admission: 11/02/22 21:29 Expected date of discharge: 11/15/22 Attending physician: Aleksandra Maloney MD Consults: 11/02/22 21:30 Consult Physician Routine Consulting Provider: Haseeb Francois Consult Reason/Comments: diabetic cellulitis of left toes Do you want consulting provider notified?: Yes Primary care physician: [facility] Hospital Course: Patient is an 82-year-old male with type II DM, peripheral neuropathy, coronary artery disease status post multiple stents, chronic lower back pain, hypertension, and hyperlipidemia who was sent to the emergency room from the [facility] due to worsening wound and coloration of his third left toe. In the emergency deparment he underwent an extensive evaluation. Initial laboratory analysis was remarkable for a calcium of 10.5. Left foot x-ray showed no acute fracture or dislocation with acute or remote infection unable to be excluded at the distal phalanx of the first toe. CT angiogram of the left leg demonstrated left peripheral vascular disease at the level of the mid leg. He was admitted for diabetic infection left third toe. Infectious disease and vascular surgery were consulted. Blood cultures were negative. Wound cultures were collected on 11/04. Patient was initially started on vancomycin and admitted transitioned to Unasyn. Arterial Dopplers were obtained which shows normal [place] and TBI bilateral. Vascular surgery recommendations local wound care and antibiotics. He continued to improve. Wound cultures came back negative but deep culture was obtained after antibiotics were started. He was significantly weak and not safe to return home. Patient was transitioned from Unasyn to Augmentin. Patient received insurance authorization on 11/15/2022. Patient was seen and examined this morning. No acute events overnight. Patient with no complaints. Pertinent studies include CTA lower extremity, foot x-ray, lower extremity arterial duplex, chest x-ray, pelvis and hip x-ray. General: nontoxic, no distress, appears at stated age Derm: warm, dry, left foot with dressing in place. Head: atraumatic, normocephalic, symmetric Eyes: EOMI, no lid lag, anicteric sclera, hard of hearing Mouth: no lip lesion, mucus membranes moist Cardiovascular: S1S2 reg, no murmur Lungs: Course breath sounds bilateral, no rhonchi, no rales , no accessory muscle use Ext: no gross muscle atrophy, no edema, no contractures Neuro: no focal neuro deficits Psych: Awake, oriented, appropriate affect Discharge diagnosis: Infected diabetic superficial wounds of the second and third toe, diabetic vascular disease Right hip pain Fall Intractable pain left foot and right thigh Hallucinations, resolved Diabetes Mellitus type II Shortness of breath, resolved Acute toxic encephalopathy improved Chronic conditions: hypertension, hyperlipidemia, coronary artery disease This complex discharge took 35 minutes to complete. Patient Condition at Discharge: Good Plan - Discharge Summary Discharge Rx Participant: No New Discharge Prescriptions: New Propranolol [Inderal] 30 mg PO BID tab Amoxic-Pot Clav 875-125Mg [Augmentin 875-125] 1 each PO Q12HR #10 tab HYDROcodone/APAP 5-325MG [[place] 5-325] 1 each PO Q6HR PRN #12 tab PRN Reason: Pain traMADol HCl [Ultram] 50 mg PO Q8HR PRN #9 tab PRN Reason: pain Continue Atorvastatin [Lipitor] 40 mg PO HS Cholecalciferol [Vitamin D3 (10 Mcg = 400 Iu)] 400 unit PO DAILY Aspirin [Adult Low Dose Aspirin EC] 81 mg PO DAILY methocarbamoL [Robaxin] 500 mg PO BID metFORMIN HCL 1,000 mg PO BID Insulin Glargine,Hum.rec.anlog [Insulin Glargine Solostar] 25 unit SQ DAILY@1200 Magnesium Oxide [Mag-Ox] 250 mg PO DAILY Lidocaine 5% Patch [Lidoderm 5% Patch] 1 patch TOPICAL DAILY DULoxetine HCL [Cymbalta] 30 mg PO HS Folic Acid 1 mg PO DAILY Multivitamins, Thera [Multivitamin (formulary)] 1 tab PO DAILY Naproxen [Naprosyn] 375 mg PO BID Gabapentin [Neurontin] 300 mg PO TID #9 cap Discontinued Propranolol HCl [Inderal] 60 mg PO BID traMADol HCL 50 mg PO Q8H PRN PRN Reason: Pain Discharge Medication List Atorvastatin [Lipitor] 40 mg PO HS 01/01/17 [History] Aspirin [Adult Low Dose Aspirin EC] 81 mg PO DAILY 05/29/18 [History] Cholecalciferol [Vitamin D3 (10 Mcg = 400 Iu)] 400 unit PO DAILY 05/29/18 [History] methocarbamoL [Robaxin] 500 mg PO BID 04/04/22 [History] metFORMIN HCL 1,000 mg PO BID 06/30/22 [History] Insulin Glargine,Hum.rec.anlog [Insulin Glargine Solostar] 25 unit SQ DAILY@1200 07/04/22 [History] Folic Acid 1 mg PO DAILY 07/17/22 [History] Magnesium Oxide [Mag-Ox] 250 mg PO DAILY 07/17/22 [History] DULoxetine HCL [Cymbalta] 30 mg PO HS 11/02/22 [History] Lidocaine 5% Patch [Lidoderm 5% Patch] 1 patch TOPICAL DAILY 11/02/22 [History] Multivitamins, Thera [Multivitamin (formulary)] 1 tab PO DAILY 11/02/22 [History] Naproxen [Naprosyn] 375 mg PO BID 11/02/22 [History] Amoxic-Pot Clav 875-125Mg [Augmentin 875-125] 1 each PO Q12HR #10 tab 11/15/22 [Rx] Gabapentin [Neurontin] 300 mg PO TID #9 cap 11/15/22 [Rx] HYDROcodone/APAP 5-325MG [[place] 5-325] 1 each PO Q6HR PRN #12 tab 11/15/22 [Rx] Propranolol [Inderal] 30 mg PO BID tab 11/15/22 [Rx] traMADol HCl [Ultram] 50 mg PO Q8HR PRN #9 tab 11/15/22 [Rx] Follow up Appointment(s)/Referral(s): Marylou Colon DO [STAFF PHYSICIAN] - 1 Week [facility], [NON-STAFF] - [facility] Needed [facility] [NON-STAFF] - As Needed [facility] [Primary Care Provider] - 1-2 days Discharge Disposition: TRANSFER TO SNF/ECF
[2022-11-15] MEDS: ENOXAPARIN 40 MG/0.4 ML SYRINGE SQ SCH (15:22)
[2022-11-15 15:33] VITALS: BP 136/88; PULSE 65; RESP 18; TEMP 98.5
[2022-11-15 17:04] LABS: Glucose,Whole Blood 98 mg/dL (70-110)
--- NOTE | 2022-11-15 23:04 | P.PN ---
Subjective Progress Note Date: 11/12/22 Principal diagnosis: Left third and fourth toe diabetic foot wound infection Patient is 84-year-old male with a past medical history significant for diabetes mellitus did stubbed his left foot with injury to the left third and fourth toe with a partial-thickness wound consult for possible cellulitis. On today's evaluation that is 11/12/2022, the patient denies any fever or any chills, the patient denies any chest pain shortness of breath and no cough no abdominal pain and no diarrhea, the patient to the left foot toes has decreased intensity, patient did have a fall last night and the patient has been complaining of pain to the right hip area he did have x-rays were negative for any fracture Objective - Vital Signs Vital signs: Vital Signs Temp 98.0 F 11/12/22 01:54 Pulse 53 L 11/12/22 07:07 Resp 18 11/12/22 07:07 BP 157/77 11/12/22 07:07 Pulse Ox 97 11/12/22 07:07 FiO2 Intake & Output 11/11/22 11/12/22 11/12/22 18:59 06:59 18:59 Output Total 130 900 Balance -130 -900 Output: Urine 130 900 Other: Voiding Method Urinal Urinal # Voids 4 - Exam GENERAL DESCRIPTION: An elderly male lying in bed in no distress RESPIRATORY SYSTEM: Unlabored breathing , decreased breath sounds at bases HEART: S1 S2 regular rate and rhythm , ABDOMEN: Soft , no tenderness EXTREMITIES: Left third toe and left fourth toe tip wounds are drying out - Labs CBC & Chem 7: 11/11/22 07:30 11/11/22 07:30 Labs: Abnormal Lab Results - Last 24 Hours (Table) 11/11/22 11/11/22 11/12/22 Range/Units 16:40 20:39 11:40 POC Glucose (mg/dL) 139 H 214 H 145 H (70-110) mg/dL Assessment and Plan (1) Cellulitis of left toe Current Visit: Yes Status: Acute Code(s): L03.032 - CELLULITIS OF LEFT TOE SNOMED Code(s): 28485042 (2) Diabetic toe ulcer Current Visit: Yes Status: Acute Code(s): E11.621 - TYPE 2 DIABETES MELLITUS WITH FOOT ULCER; L97.509 - NON-PRESSURE CHRONIC ULCER OTH PRT UNSP FOOT W UNSP SEVERITY SNOMED Code(s): 377774599 Plan: 1patient with left third and fourth toe diabetic foot ulcer and concern for possible cellulitis , patient did have multiple cultures which has been negative for any resistant pathogen 2patient to continue local wound care with dry Aquacel silver to dressing to the third and fourth toe to be changed every 48 hours 3-patient did have clinical improvement as for as third and fourth toe tips lorraine lulitis is concerned, we will continue Unasyn patient transitioned to Augmentin plan is for total of 2 week course of therapy this was discussed with the admitting team Time with Patient: Less than 30
--- NOTE | 2022-11-15 23:04 | P.PN ---
Subjective Progress Note Date: 11/11/22 Principal diagnosis: Left third and fourth toe diabetic foot wound infection Patient is 84-year-old male with a past medical history significant for diabetes mellitus did stubbed his left foot with injury to the left third and fourth toe with a partial-thickness wound consult for possible cellulitis. On today's evaluation that is 11/11/2022, the patient remains to be afebrile, the patient denies any chest pain shortness of breath and no cough no abdominal pain and no diarrhea, the patient to the left foot toes has decreased intensity, no new symptoms Objective - Vital Signs Vital signs: Vital Signs Temp 98.3 F 11/11/22 07:50 Pulse 52 L 11/11/22 10:49 Resp 14 11/11/22 10:49 BP 140/70 11/11/22 10:49 Pulse Ox 97 11/11/22 10:49 FiO2 Intake & Output 11/10/22 11/11/22 11/11/22 18:59 06:59 18:59 Output Total 600 0 130 Balance -600 -2049 -130 Output: Urine 600 2049 130 Other: Voiding Method Urinal # Voids 1 - Exam GENERAL DESCRIPTION: An elderly male lying in bed in no distress RESPIRATORY SYSTEM: Unlabored breathing , decreased breath sounds at bases HEART: S1 S2 regular rate and rhythm , ABDOMEN: Soft , no tenderness EXTREMITIES: Left third toe and the left fourth toe tip wounds are drying out, redness resolved - Labs CBC & Chem 7: 11/11/22 07:30 11/11/22 07:30 Labs: Abnormal Lab Results - Last 24 Hours (Table) 11/10/22 11/10/22 11/11/22 Range/Units 17:11 21:13 06:02 RBC (4.40-5.60) X 10*6/uL Hgb (13.0-17.0) g/dL Hct (39.6-50.0) % MCV (80.0-97.0) fL MCHC (32.0-37.0) g/dL Anion Gap (10.00-18.00) mmol/L POC Glucose (mg/dL) 151 H 212 H 120 H (70-110) mg/dL 11/11/22 11/11/22 11/11/22 Range/Units 07:30 07:30 11:48 RBC 4.04 L (4.40-5.60) X 10*6/uL Hgb 12.5 L (13.0-17.0) g/dL Hct 39.5 L (39.6-50.0) % MCV 97.8 H (80.0-97.0) fL MCHC 31.6 L (32.0-37.0) g/dL Anion Gap 9.70 L (10.00-18.00) mmol/L POC Glucose (mg/dL) 159 H (70-110) mg/dL Assessment and Plan (1) Cellulitis of left toe Current Visit: Yes Status: Acute Code(s): L03.032 - CELLULITIS OF LEFT TOE SNOMED Code(s): 37817917 (2) Diabetic toe ulcer Current Visit: Yes Status: Acute Code(s): E11.621 - TYPE 2 DIABETES MELLITUS WITH FOOT ULCER; L97.509 - NON-PRESSURE CHRONIC ULCER OTH PRT UNSP FOOT W UNSP SEVERITY SNOMED Code(s): 553322668 Plan: 1patient with left third and fourth toe diabetic foot ulcer and concern for possible cellulitis , patient did have multiple cultures which has been negative for any resistant pathogen 2patient to continue local wound care with dry Aquacel silver to dressing to the third and fourth toe to be changed every 48 hours 3-patient did have clinical improvement as for as third and fourth toe tips ce llulitis is concerned, patient currently waiting for fpc placement awaiting [facility] [place] patient to continue with IV Unasyn while inpatient and monitor clinical course closely Time with Patient: Less than 30
== END 2022-11-15 17:12 | DRG 637 ==
LOC: EC 13:04 → 4SSUR 21:29
PROVIDERS: ADMIT Internal Medicine; ATTEND Internal Medicine
DX: E11.621 Type 2 diabetes mellitus with foot ulcer (principal); G92.8 Other toxic encephalopathy; E11.628 Type 2 diabetes mellitus with other skin complications; E11.40 Type 2 diabetes mellitus with diabetic neuropathy, unspecified; E78.5 Hyperlipidemia, unspecified; E87.70 Fluid overload, unspecified; F17.210 Nicotine dependence, cigarettes, uncomplicated; F20.9 Schizophrenia, unspecified; F32.A Depression, unspecified; F41.0 Panic disorder [episodic paroxysmal anxiety]; G25.0 Essential tremor; I10 Essential (primary) hypertension; I25.10 Atherosclerotic heart disease of native coronary artery without angina pectoris; G89.29 Other chronic pain; M48.00 Spinal stenosis, site unspecified; L03.032 Cellulitis of left toe; L97.529 Non-pressure chronic ulcer of other part of left foot with unspecified severity; Z28.310 Unvaccinated for COVID-19; M25.551 Pain in right hip; W19.XXXA Unspecified fall, initial encounter; Z75.1 Person awaiting admission to adequate facility elsewhere; Z79.4 Long term (current) use of insulin; Z79.82 Long term (current) use of aspirin; Z79.84 Long term (current) use of oral hypoglycemic drugs; Z79.899 Other long term (current) drug therapy; Z82.49 Family history of ischemic heart disease and other diseases of the circulatory system; Z95.5 Presence of coronary angioplasty implant and graft
CPT/HCPCS: 36415; 71045; 73502; 80048; 80053; 85025; 85027; 85652; 86140; 87040; 87070; 87075; 87205; 93922; 96365; 96366; 99284

== ENCOUNTER 2023-06-11 21:57 | Observation (INO) | payer OTHER, MEDICARE ==
--- NOTE | 2023-06-11 22:08 | ED ---
Psych HPI - General Stated Complaint: Mental Health Time Seen by Provider: 06/11/23 22:06 Source: RN notes reviewed, old records reviewed Limitations: no limitations - History of Present Illness Initial Comments: This is a 83-year-old male presented today for evaluation regards to medication withdrawal. Persistent shaking here in the ER and does admit to some depression and anxiety and possible thoughts of hurting himself. Patient has recent stopping of tramadol Ultram as an outpatient for 4 days. Patient was also making complaints of depression and suicidal thoughts prior to arrival as his been unable able to sleep for 4 days now. MD Complaint: suicidal ideation, feels depressed, other (Significant lower extremity tremor) -: days(s) (4) Associated Psychiatric Symptoms: depression, suicidal ideation History of same: Yes Quality: constant Improves With: none Worsens With: none Context: new medication(s) (Patient recently off Ultram), significant life stressor Associated Symptoms: denies other symptoms Treatments Prior to Arrival: placed on mental health hold If Self Harm: admits thoughts of self harm - Related Data Home Medications Medication Instructions Recorded Confirmed Atorvastatin [Lipitor] 40 mg PO HS 01/01/17 06/12/23 Aspirin [Adult Low Dose Aspirin EC] 81 mg PO DAILY 05/29/18 06/12/23 Cholecalciferol [Vitamin D3 (10 400 unit PO DAILY 05/29/18 06/12/23 Mcg = 400 Iu)] methocarbamoL [Robaxin] 500 mg PO BID 04/04/22 06/12/23 metFORMIN HCL 1,000 mg PO BID 06/30/22 06/12/23 Insulin Glargine,Hum.rec.anlog 20 unit SQ DAILY 07/04/22 06/12/23 [Insulin Glargine Solostar] Folic Acid 1 mg PO DAILY 07/17/22 06/12/23 Magnesium Oxide [Mag-Ox] 250 mg PO DAILY 07/17/22 06/12/23 DULoxetine HCL [Cymbalta] 30 mg PO HS 11/02/22 06/12/23 Multivitamins, Thera [Multivitamin 1 tab PO DAILY 11/02/22 06/12/23 (formulary)] Naproxen [Naprosyn] 375 mg PO BID 11/02/22 06/12/23 Erythromycin Ophth Oint [Romycin 1 applic LEFT EYE HS 06/12/23 06/12/23 Ophth Oint] Insulin Aspart [Insulin Aspart 10 unit SQ AC-TID 06/12/23 06/12/23 Flexpen] Propranolol HCl [Inderal] 60 mg PO BID 06/12/23 06/12/23 Topiramate [Topamax] 25 mg PO DAILY 06/12/23 06/12/23 Previous Rx's Medication Instructions Recorded Gabapentin [Neurontin] 300 mg PO TID #9 cap 11/15/22 traMADol HCL 50 mg PO 5XD 10 Days #50 tab 06/14/23 traMADol HCl [Ultram] 50 mg PO QID #12 tab 06/14/23 Allergies Allergy/AdvReac Type Severity Reaction Status Date / Time No Known Allergies Allergy Verified 06/12/23 10:28 Review of Systems ROS Statement: Those systems with pertinent positive or pertinent negative responses have been documented in the HPI. ROS Other: All systems not noted in ROS Statement are negative. Past Medical History Past Medical History: Coronary Artery Disease (CAD), Diabetes Mellitus, GI Bleed, Hyperlipidemia, Osteoarthritis (OA) Additional Past Medical History / Comment(s): ESSENTIAL TREMORS, GI bleed 10/2017, diverticulitis, gallstones, some loss of use of rt arm, herniated disk, spinal stenosis History of Any Multi-Drug Resistant Organisms: None Reported Past Surgical History: Cholecystectomy Additional Past Surgical History / Comment(s): 3 cardiac stents, surgery on rt arm x 3 -fx as child, left eyelid surgery Past Anesthesia/Blood Transfusion Reactions: No Reported Reaction Date of Last Stent Placement:: 1999 Past Psychological History: Anxiety, Depression, Panic Disorder, Schizophrenia Smoking Status: Current every day smoker Past Alcohol Use History: None Reported Past Drug Use History: None Reported - Past Family History Mother Family Medical History: No Reported History family Family Medical History: Coronary Artery Disease (CAD) General Exam General appearance: alert, in no apparent distress, anxious Head exam: Present: atraumatic, normocephalic, normal inspection Eye exam: Present: normal appearance, PERRL, EOMI. Absent: scleral icterus, conjunctival injection, periorbital swelling ENT exam: Present: normal exam, mucous membranes moist Neck exam: Present: normal inspection. Absent: tenderness, meningismus, lymphadenopathy Respiratory exam: Present: normal lung sounds bilaterally. Absent: respiratory distress, wheezes, rales, rhonchi, stridor Cardiovascular Exam: Present: regular rate, normal rhythm, normal heart sounds. Absent: systolic murmur, diastolic murmur, rubs, gallop, clicks GI/Abdominal exam: Present: soft, normal bowel sounds. Absent: distended, tenderness, guarding, rebound, rigid Extremities exam: Present: normal inspection, full ROM, normal capillary refill. Absent: tenderness, pedal edema, joint swelling, calf tenderness Back exam: Present: normal inspection Neurological exam: Present: alert, oriented X3, CN II-XII intact Psychiatric exam: Present: normal affect, normal mood Skin exam: Present: warm, dry, intact, normal color. Absent: rash Course Vital Signs 06/11/23 06/12/23 06/12/23 22:00 00:54 03:45 Temperature Pulse Rate 66 71 Respiratory 18 18 16 Rate Blood Pressure 163/80 136/75 O2 Sat by Pulse 97 96 Oximetry 06/12/23 06/12/23 06/12/23 08:21 10:00 16:20 Temperature 96.5 F L Pulse Rate 65 60 75 Respiratory 16 16 18 Rate Blood Pressure 125/65 145/68 119/69 O2 Sat by Pulse 98 98 96 Oximetry - Reevaluation(s) Reevaluation #1: 06/12/23 00:01 Medical record is reviewed Reevaluation #2: 06/12/23 00:01 Patient still having shaking here in the ER Reevaluation #3: 06/12/23 00:01 Patient informed of results and questions answered Reevaluation #4: 06/12/23 00:01 Was pt. sent in by a medical professional or institution (, PA, [employer] INSPECTOR, urgent care, hospital, or penitentiary...) When possible be specific @ -no Did you speak to anyone other than the patient for history (EMS, parent, family, police, friend...)? What history was obtained from this source @ -no Did you review nursing and triage notes (agree or disagree)? Why? @ -agree Are old charts reviewed (outside hosp., previous admission, EMS record, old EKG, old radiological studies, urgent care reports/EKG's, penitentiary records)? Report findings @ -yes Differential Diagnosis (chest pain, altered mental status, abdominal pain women, abdominal pain men, vaginal bleeding, weakness, fever, dyspnea, syncope, headache, dizziness, GI bleed, back pain, seizure, CVA, palpatations, mental health, musculoskeletal)? @ -prior EKG interpreted by me (3pts min.). @ -no X-rays interpreted by me (1pt min.). @ -no CT interpreted by me (1pt min.). @ -no U/S interpreted by me (1pt. min.). @ -no What testing was considered but not performed or refused? (CT, X-rays, U/S, labs)? Why? @ -none What meds were considered but not given or refused? Why? @ -none Did you discuss the management of the patient with other professionals (professionals i.e. , PA, [employer] INSPECTOR, lab, RT, psych nurse, social insurance specialist, immigration lawyer, teacher, professional security officer, returned case inspector)? Give summary @ -no Was smoking cessation discussed for >3mins.? @ -no Was critical care preformed (if so, how long)? @ -no Were there social determinants of health that impacted care today? How? (Homelessness, low income, unemployed, alcoholism, drug addiction, transportation, low edu. Level, literacy, decrease access to med. care, custodial, rehab)? @ -none Was there de-escalation of care discussed even if they declined (Discuss DNR or withdrawal of care, Hospice)? DNR status @ -no What co-morbidities impacted this encounter? (DM, HTN, Smoking, COPD, CAD, Cancer, CVA, ARF, Chemo, Hep., AIDS, mental health diagnosis, sleep apnea, morbid obesity)? @ -none Was patient admitted / discharged? Hospital course, mention meds given and route, prescriptions, significant lab abnormalities, going to OR and other pertinent info. @ - 83 male to the emergency department today for evaluation of medication withdrawal from Ultram. Anxiety. Leg withdrawal shaking. Patient be admitted for depression evaluation all he was making suicidal comments, patient given symptomatic relief and will be put in observation Admitted Undiagnosed new problem with uncertain prognosis? @ -no Drug Therapy requiring intensive monitoring for toxicity (Heparin, Nitro, Insulin, Cardizem)? @ -no Were any procedures done? @ -no Diagnosis/symptom? @ -Ultram withdrawal, tremor Acute, or Chronic, or Acute on Chronic? @ -Acute Uncomplicated (without systemic symptoms) or Complicated (systemic symptoms)? @ -Complicated Side effects of treatment? @ -no Exacerbation, Progression, or Severe Exacerbation? @ -exacerbation Poses a threat to life or bodily function? How? (Chest pain, [place], [place], pneumonia, PE, COPD, DKA, ARF, appy, cholecystitis, CVA, Diverticulitis, Homicidal, Suicidal, threat to staff... and all critical care pts) @ -yes with drug withdrawal - Consultations Consultation #1: Spoke with fifi who agrees to admit this patient Medical Decision Making - Medical Decision Making 83 male to the emergency department today for evaluation of medication withdrawal from Ultram. Anxiety. Leg withdrawal shaking. Patient be admitted for depression evaluation all he was making suicidal comments, patient given symptomatic relief and will be put in observation - Lab Data Result diagrams: 06/13/23 05:50 06/13/23 15:03 Lab Results 06/11/23 06/11/23 06/11/23 Range/Units 22:32 22:32 22:32 WBC 9.0 (3.8-10.6) k/uL RBC 4.41 (4.30-5.90) m/uL Hgb 13.6 (13.0-17.5) gm/dL Hct 40.5 (39.0-53.0) % MCV 91.8 (80.0-100.0) fL MCH 30.9 (25.0-35.0) pg MCHC 33.6 (31.0-37.0) g/dL RDW 15.2 (11.5-15.5) % Plt Count 195 (150-450) k/uL MPV 8.0 Neutrophils % 62 % Lymphocytes % 26 % Monocytes % 6 % Eosinophils % 3 % Basophils % 1 % Neutrophils # 5.6 (1.3-7.7) k/uL Lymphocytes # 2.4 (1.0-4.8) k/uL Monocytes # 0.5 (0-1.0) k/uL Eosinophils # 0.3 (0-0.7) k/uL Basophils # 0.1 (0-0.2) k/uL Sodium 139 (137-145) mmol/L Potassium 4.1 (3.5-5.1) mmol/L Chloride 108 H (98-107) mmol/L Carbon Dioxide 17 L (22-30) mmol/L Anion Gap 14 mmol/L BUN 17 (9-20) mg/dL Creatinine 0.81 (0.66-1.25) mg/dL Est GFR (CKD-EPI)AfAm >90 (>60 ml/min/1.73 sqM) Est GFR (CKD-EPI)NonAf 83 (>60 ml/min/1.73 sqM) Glucose 107 H (74-99) mg/dL Calcium 10.0 (8.4-10.2) mg/dL Phosphorus 3.3 (2.5-4.5) mg/dL Magnesium 1.9 (1.6-2.3) mg/dL Total Bilirubin 0.9 (0.2-1.3) mg/dL AST 34 (17-59) U/L ALT 33 (4-49) U/L Alkaline Phosphatase 67 (38-126) U/L Total Protein 6.9 (6.3-8.2) g/dL Albumin 4.4 (3.5-5.0) g/dL Urine Color Urine Appearance (Clear) Urine pH (5.0-8.0) Ur Specific [place] (1.001-1.035) Urine Protein (Negative) Urine Glucose (UA) (Negative) Urine Ketones (Negative) Urine Blood (Negative) Urine Nitrite (Negative) Urine Bilirubin (Negative) Urine Urobilinogen (<2.0) mg/dL Ur Leukocyte Esterase (Negative) Salicylates <1.0 mg/dL Urine Opiates Screen (NotDetected) Ur Oxycodone Screen (NotDetected) Urine Methadone Screen (NotDetected) Ur Propoxyphene Screen (NotDetected) Acetaminophen <10.0 ug/mL Ur Barbiturates Screen (NotDetected) U Tricyclic Antidepress (NotDetected) Ur Phencyclidine Scrn (NotDetected) Ur Amphetamines Screen (NotDetected) U Methamphetamines Scrn (NotDetected) U Benzodiazepines Scrn (NotDetected) Urine Cocaine Screen (NotDetected) U Marijuana (THC) Screen (NotDetected) Serum Alcohol <10 mg/dL 06/12/23 Range/Units 00:52 WBC (3.8-10.6) k/uL RBC (4.30-5.90) m/uL Hgb (13.0-17.5) gm/dL Hct (39.0-53.0) % MCV (80.0-100.0) fL MCH (25.0-35.0) pg MCHC (31.0-37.0) g/dL RDW (11.5-15.5) % Plt Count (150-450) k/uL MPV Neutrophils % % Lymphocytes % % Monocytes % % Eosinophils % % Basophils % % Neutrophils # (1.3-7.7) k/uL Lymphocytes # (1.0-4.8) k/uL Monocytes # (0-1.0) k/uL Eosinophils # (0-0.7) k/uL Basophils # (0-0.2) k/uL Sodium (137-145) mmol/L Potassium (3.5-5.1) mmol/L Chloride (98-107) mmol/L Carbon Dioxide (22-30) mmol/L Anion Gap mmol/L BUN (9-20) mg/dL Creatinine (0.66-1.25) mg/dL Est GFR (CKD-EPI)AfAm (>60 ml/min/1.73 sqM) Est GFR (CKD-EPI)NonAf (>60 ml/min/1.73 sqM) Glucose (74-99) mg/dL Calcium (8.4-10.2) mg/dL Phosphorus (2.5-4.5) mg/dL Magnesium (1.6-2.3) mg/dL Total Bilirubin (0.2-1.3) mg/dL AST (17-59) U/L ALT (4-49) U/L Alkaline Phosphatase (38-126) U/L Total Protein (6.3-8.2) g/dL Albumin (3.5-5.0) g/dL Urine Color Yellow Urine Appearance Clear (Clear) Urine pH 6.0 (5.0-8.0) Ur Specific [place] 1.024 (1.001-1.035) Urine Protein Trace H (Negative) Urine Glucose (UA) Negative (Negative) Urine Ketones Negative (Negative) Urine Blood Negative (Negative) Urine Nitrite Negative (Negative) Urine Bilirubin Negative (Negative) Urine Urobilinogen <2.0 (<2.0) mg/dL Ur Leukocyte Esterase Negative (Negative) Salicylates mg/dL Urine Opiates Screen Not Detected (NotDetected) Ur Oxycodone Screen Not Detected (NotDetected) Urine Methadone Screen Not Detected (NotDetected) Ur Propoxyphene Screen Not Detected (NotDetected) Acetaminophen ug/mL Ur Barbiturates Screen Not Detected (NotDetected) U Tricyclic Antidepress Not Detected (NotDetected) Ur Phencyclidine Scrn Not Detected (NotDetected) Ur Amphetamines Screen Not Detected (NotDetected) U Methamphetamines Scrn Not Detected (NotDetected) U Benzodiazepines Scrn Not Detected (NotDetected) Urine Cocaine Screen Not Detected (NotDetected) U Marijuana (THC) Screen Not Detected (NotDetected) Serum Alcohol mg/dL Disposition Clinical Impression: Acute anxiety, Depression, Difficulty in walking, Medication withdrawal Disposition: ADMITTED IP TO THIS [facility] Condition: Stable Is patient prescribed a controlled substance at d/c from ED?: No Time of Disposition: 00:00
[2023-06-11 22:46] LABS: Basophils # (A) 0.1 k/uL (0-0.2); Basophils % (A) 1 %; Eosinophils # (A) 0.3 k/uL (0-0.7); Eosinophils % (A) 3 %; HCT 40.5 % (39.0-53.0); HGB 13.6 gm/dL (13.0-17.5); Lymphocytes # (A) 2.4 k/uL (1.0-4.8); Lymphocytes % (A) 26 %; MCH 30.9 pg (25.0-35.0); MCHC 33.6 g/dL (31.0-37.0); MCV 91.8 fL (80.0-100.0); Monocytes # (A) 0.5 k/uL (0-1.0); Monocytes % (A) 6 %; Neutrophils # (A) 5.6 k/uL (1.3-7.7); Neutrophils % (A) 62 %; Platelet Count 195 k/uL (150-450); RBC 4.41 m/uL (4.30-5.90); RDW 15.2 % (11.5-15.5)
[2023-06-11 23:03] LABS: ALT 33 U/L (4-49); AST 34 U/L (17-59); Acetaminophen <10.0 ug/mL; African American GFR (CKD) >90 (>60 ml/min/1.73 sqM); Albumin 4.4 g/dL (3.5-5.0); Alcohol <10 mg/dL; Alkaline Phosphatase 67 U/L (38-126); Anion Gap 14 mmol/L; Blood Urea Nitrogen 17 mg/dL (9-20); Carbon Dioxide 17 mmol/L (22-30); Chloride 108 mmol/L (98-107); Glucose 107 mg/dL (74-99); Non-African American GFR(CKD) 83 (>60 ml/min/1.73 sqM); Potassium 4.1 mmol/L (3.5-5.1); Salicylate <1.0 mg/dL; Sodium 139 mmol/L (137-145); Total Bilirubin 0.9 mg/dL (0.2-1.3); Total Protein 6.9 g/dL (6.3-8.2)
[2023-06-11] MEDS ORDERED: SODIUM CHLORIDE 0.9% 1,000 ML IV STA ×2 (23:41)
[2023-06-11] MEDS ORDERED: traMADol 50 MG TAB PO STA (23:41)
[2023-06-11] MEDS ORDERED: LORazepam 2 MG/ML INJ IV STA (23:41)
[2023-06-12 01:15] LABS: Magnesium 1.9 mg/dL (1.6-2.3); Phosphorus 3.3 mg/dL (2.5-4.5)
[2023-06-12 01:17] LABS: Appearance,Urine Clear (Clear); Bilirubin,Urine Negative (Negative); Blood,Urine Negative (Negative); Color,Urine Yellow; Glucose,Urine (UA) Negative (Negative); Ketones,Urine Negative (Negative); Leukocyte Esterase,Urine Negative (Negative); Nitrite,Urine Negative (Negative); Protein,Urine Trace (Negative); Specific Gravity,Urine 1.024 (1.001-1.035); Urobilinogen,Urine <2.0 mg/dL (<2.0)
[2023-06-12] MEDS ORDERED: NALOXONE 0.4 MG/ML 1 ML VIAL IV PRN (01:22)
[2023-06-12] MEDS ORDERED: traMADol 50 MG TAB PO PRN (01:22)
[2023-06-12] MEDS ORDERED: ONDANSETRON 4 MG/2 ML VIAL IVP PRN (01:22)
[2023-06-12 01:27] LABS: Amphetamine Screen,Urine Not Detected (NotDetected); Barbiturate Screen,Urine Not Detected (NotDetected); Benzodiazepines Screen,Urine Not Detected (NotDetected); Cocaine Screen,Urine Not Detected (NotDetected); Methadone Screen, Urine Not Detected (NotDetected); Opiate Screen,Urine Not Detected (NotDetected); Oxycodone Screen, Urine Not Detected (NotDetected); Phencyclidine Screen,Urine Not Detected (NotDetected); Tricyclic Antidepressant,Urine Not Detected (NotDetected); Urn Cannabinoid Scrn Not Detected (NotDetected)
--- NOTE | 2023-06-12 02:21 | P.HPIM ---
History of Present Illness H&P Date: 06/12/23 Patient is a 83-year-old male with a PMH of type II DM, CAD status post multiple stents, peripheral neuropathy, chronic low back pain, hypertension, and hyperlipidemia who presents to the emergency room with complaints of tremors. The patient reports that he was recently told by the NE's office that he will need to do monthly urine drug testing to continue to receive his tramadol. The patient reports that he got upset and flushed his tramadol down the toilet 2 days ago and thereby has not taken it since then. He reports that yesterday he started having tremors involving his upper and lower extremities, which went him from sleeping. He also reports worsening lower back pain for which he was taking the tramadol for several years. He denies experiencing chest discomfort, shortness of breath, fever, chills, nausea, vomiting, abdominal pain, diarrhea. Patient reported some depression without suicidal ideation. Laboratory evaluation in the emergency room is reviewed with chloride 108, CO2 17, glucose 107, UA unremarkable, and urine tox cause negative. ED documentation reviewed and case discussed with ED provider. Review of systems: Pertinent positives and negatives as discussed in HPI, a complete review of systems was performed and all other systems are negative. Physical examination: Vital signs reviewed General: non toxic, no distress, appears at stated age, normal weight Derm: no unusual rashes/lesions, warm Head: atraumatic, normocephalic, symmetric Eyes: EOMI, no lid lag, anicteric sclera, pupils equal round reactive to light ENT: Nose and ears atraumatic Neck: No cervical lymphadenopathy, trachea midline, supple Mouth: no lip lesion, mucus membranes moist Cardiovascular: S1S2 reg, no murmur, positive dorsalis pedis pulse bilateral, no edema Lungs: CTA bilateral, no rhonchi, no rales, no accessory muscle use Abdominal: soft, nontender to palpation, no guarding Ext: muscle strength 5 out of 5 in all 4 extremities grossly, no gross muscle atrophy, no contractures Neuro: CN II-XI grossly intact, no gross focal neuro deficits, mild diffuse tremors noted Psych: Alert, oriented, appropriate affect Assessment: Opiate withdrawal Chronic conditions: Type 2 DM, CAD, LBP, HTN, HLD Imaging: None performed Data Review: Laboratory evaluation in the emergency room is reviewed with chloride 108, CO2 17, glucose 107, UA unremarkable, and urine tox cause negative. Plan: C/w Tramadol Patient advised to f/u with his PCP for long-term pain management C/w home meds DVT prophylaxis: Lovenox Subq The patient is admitted with an anticipated less than 2 midnight stay for evaluation of opiate withdrawal CODE STATUS: Full Code Discussed with: Patient Anticipated discharge place: Home Past Medical History Past Medical History: Coronary Artery Disease (CAD), Diabetes Mellitus, GI Bleed, Hyperlipidemia, Osteoarthritis (OA) Additional Past Medical History / Comment(s): ESSENTIAL TREMORS, GI bleed 10/2017, diverticulitis, gallstones, some loss of use of rt arm, herniated disk, spinal stenosis History of Any Multi-Drug Resistant Organisms: None Reported Past Surgical History: Cholecystectomy Additional Past Surgical History / Comment(s): 3 cardiac stents, surgery on rt arm x 3 -fx as child, left eyelid surgery Past Anesthesia/Blood Transfusion Reactions: No Reported Reaction Date of Last Stent Placement:: 1999 Past Psychological History: Anxiety, Depression, Panic Disorder, Schizophrenia Smoking Status: Current every day smoker Past Alcohol Use History: None Reported Past Drug Use History: None Reported - Past Family History Mother Family Medical History: No Reported History family Family Medical History: Coronary Artery Disease (CAD) Medications and Allergies Home Medications Medication Instructions Recorded Confirmed Type Atorvastatin [Lipitor] 40 mg PO HS 01/01/17 11/02/22 History Aspirin [Adult Low Dose Aspirin EC] 81 mg PO DAILY 05/29/18 11/02/22 History Cholecalciferol [Vitamin D3 (10 400 unit PO DAILY 05/29/18 11/02/22 History Mcg = 400 Iu)] methocarbamoL [Robaxin] 500 mg PO BID 04/04/22 11/02/22 History metFORMIN HCL 1,000 mg PO BID 06/30/22 11/02/22 History Insulin Glargine,Hum.rec.anlog 25 unit SQ DAILY@1200 07/04/22 11/02/22 History [Insulin Glargine Solostar] Folic Acid 1 mg PO DAILY 07/17/22 11/02/22 History Magnesium Oxide [Mag-Ox] 250 mg PO DAILY 07/17/22 11/02/22 History DULoxetine HCL [Cymbalta] 30 mg PO HS 11/02/22 11/02/22 History Lidocaine 5% Patch [Lidoderm 5% 1 patch TOPICAL DAILY 11/02/22 11/02/22 History Patch] Multivitamins, Thera [Multivitamin 1 tab PO DAILY 11/02/22 11/02/22 History (formulary)] Naproxen [Naprosyn] 375 mg PO BID 11/02/22 11/02/22 History Amoxic-Pot Clav 875-125Mg 1 each PO Q12HR #10 tab 11/15/22 Rx [Augmentin 875-125] Gabapentin [Neurontin] 300 mg PO TID #9 cap 11/15/22 Rx HYDROcodone/APAP 5-325MG [[place] 1 each PO Q6HR PRN #12 tab 11/15/22 Rx 5-325] Propranolol [Inderal] 30 mg PO BID tab 11/15/22 Rx traMADol HCl [Ultram] 50 mg PO Q8HR PRN #9 tab 11/15/22 Rx Allergies Allergy/AdvReac Type Severity Reaction Status Date / Time No Known Allergies Allergy Verified 06/11/23 22:11 Physical Exam Vitals: Vital Signs Pulse Resp BP Pulse Ox 06/12/23 00:54 71 18 136/75 96 06/11/23 22:00 66 18 163/80 97 Intake and Output 06/11/23 06/11/23 06/12/23 14:59 22:59 06:59 Other: Weight 95.708 kg Results CBC & Chem 7: 06/11/23 22:32 06/11/23 22:32 Labs: Abnormal Lab Results - Last 24 Hours (Table) 06/11/23 06/12/23 Range/Units 22:32 00:52 Chloride 108 H (98-107) mmol/L Carbon Dioxide 17 L (22-30) mmol/L Glucose 107 H (74-99) mg/dL Urine Protein Trace H (Negative)
[2023-06-12] MEDS: SODIUM CHLORIDE 0.9% 1,000 ML IV SCH ×2 (08:14→11:21)
[2023-06-12] MEDS: INSULIN ASPART (NovoLOG) 100 UNIT/ML VIAL SQ SCH ×4 (08:14→21:47)
[2023-06-12 08:15] LABS: Glucose,Whole Blood 134 mg/dL (70-110)
[2023-06-12] MEDS: ENOXAPARIN 40 MG/0.4 ML SYRINGE SQ SCH (08:16)
[2023-06-12 12:27] LABS: Glucose,Whole Blood 149 mg/dL (70-110)
--- NOTE | 2023-06-12 13:20 | P.CN ---
Psychiatric Consult - . Consult date: 06/12/23 Consult:: 06/12/23 13:19 IDENTIFYING DATA: This patient is a 83-year-old male with a history of schizoaffective disorder who presented to our hospital on 06/11/2023 for concerns of suicidal ideation in the context of medication withdrawal. HISTORY OF PRESENT ILLNESS: The patient presented to the hospital on 06/11/2023, brought into the hospital for psychiatric evaluation after endorsing suicidal thoughts. The patient reports that he has been [facility] and has been prescribed Ultram for management of back pain. He states that his whole lumbar spine is an issue. He reports that the [facility] has been inconsistent in mailing his medications and that his medication often arrives late. He reports that he was so frustrated for not having received his Ultram for 2 days that once it finally arrived, he decided to flush them down the toilet. He reports that the following morning, he began experiencing elevated anxiety, tremors, and pain. He reports that he could not live like that and felt that he would kill himself. Since being brought to the emergency department however, the patient reports that he is feels much more calm. He is currently denying any suicidal or homicidal ideation, intention, and/or plan. He is not reporting any auditory or visual hallucinations. He reports no paranoia or other delusions. Aside from missing his medication, the patient does not report any other acute stressors. He does not provide any history of martin or hypomania. He denies any increased goal-directed activity, grandiosity, or mood lability. The patient does admit to having firearms at home. However, he allowed this provider to contact his son. His son confirms that the firearms have been removed. PAST PSYCHIATRIC HISTORY: Patient has a reported history of schizoaffective disorder. The patient reports that he was presented prescribed antipsychotics many years ago. He states that he was discharged from the [facility] [place] medically in 1960 after experiencing auditory and visual hallucinations. He does report a history of psychiatric admissions however states that his last psychiatric admission was when he was in [facility] more than 50 years ago. [facility] Patient denies any history of suicide attempts in the past. PAST MEDICAL HISTORY: Past Medical History: Coronary Artery Disease (CAD), Diabetes Mellitus, GI Bleed, Hyperlipidemia, Osteoarthritis (OA) Additional Past Medical History / Comment(s): ESSENTIAL TREMORS, GI bleed 10/2017, diverticulitis, gallstones, some loss of use of rt arm, herniated disk, spinal stenosis History of Any Multi-Drug Resistant Organisms: None Reported Past Surgical History: Cholecystectomy Additional Past Surgical History / Comment(s): 3 cardiac stents, surgery on rt arm x 3 -fx as child, left eyelid surgery Past Anesthesia/Blood Transfusion Reactions: No Reported Reaction Date of Last Stent Placement:: 1999 Past Psychological History: Anxiety, Depression, Panic Disorder, Schizophrenia Smoking Status: Current every day smoker Past Alcohol Use History: None Reported Past Drug Use History: None Reported ALLERGIES: NO KNOWN DRUG ALLERGIES CHEMICAL DEPENDENCY HISTORY: The patient reports that he smokes 3 cigarettes per day. He denies any alcohol or illicit drug use. He reports no marijuana use FAMILY PSYCHIATRIC/SUBSTANCE USE HISTORY: The patient reports that his brother was schizophrenic SOCIAL HISTORY: Patient was born and raised in [place], [place]. He has his master's degree in psychology from [employer]. He was in the [facility] however was medically discharged due to experiencing hallucinations. He reports he was diagnosed with schizophrenia. He is . He currently lives next to his son Alphonso. MENTAL STATUS EXAM: General Appearance: Patient appears to be stated age is alert, pleasant, and cooperative. Patient appears to have fair hygiene and grooming wearing hospital gown with fair eye contact. Behavior: Patient is calmly lying in bed without any agitated behavior. Speech: Patient's speech is fluent and nonpressured. Mood/Affect: Patient reports their mood is "much better", affect is congruent and euthymic. Suicidality/Homicidality: Patient is vehemently denying any suicidal or homicidal ideation, intention, and/or plan. Perceptions: Patient denies any visual hallucinations and denies any auditory hallucinations Though content/process: There is no evidence of any delusional thought content and thought process is linear and goal-directed. Memory and concentration: AOX3, grossly intact for the purposes of this session. Can spell "WORLD" backwards Judgment and insight: Fair IMPRESSIONS: Adjustment disorder with depressed mood Medication withdrawal Schizoaffective disorder, depressive type as per history -Although the patient endorses a history of schizoaffective disorder, he has been relatively high functioning and has not required inpatient psychiatric admission for over 50 years. Typically, once diagnosed with schizoaffective disorder, the disease is quite debilitating. The patient appears to be relatively stable despite not being on any antipsychotic medication. Questionable diagnosis of schizoaffective disorder. PLAN: -At this time patient DOES NOT meet criteria for inpatient psychiatric admission. The patient is currently vehemently denying any suicidal or homicidal ideation, intention, and/or plan. Patient is primarily related to his medication withdrawal. He has no prior attempts at suicide. Patient's son was able to confirm that the firearms have been removed from the home. -Delirium precautions recommended with patient including - avoiding use of narcotics and CABLE ASSEMBLER AND SWAGER sedatives, limit anticholinergic medications when possible, frequent re-orientation, minimize use of restraints, open window shades during the day and close them at night -Would recommend the following medication changes/additions: No medication recommendations be made at this time. Will defer to medicine for management of pain. -Patient does not require one-to-one sitter. -Psychiatry will sign off at this point, please contact with any questions. 06/12/23 13:19
[2023-06-12] MEDS ORDERED: DEXTROSE 50% SYRINGE 50 ML IVP PRN ×2 (16:54)
[2023-06-12 17:37] LABS: Glucose,Whole Blood 199 mg/dL (70-110)
[2023-06-12] MEDS: traMADol 50 MG TAB PO SCH ×2 (17:52→20:37)
[2023-06-12 18:41] LABS: Glucose,Whole Blood 147 mg/dL (70-110)
[2023-06-12] MEDS: PROPRANOLOL 20 MG TAB PO SCH (20:36)
[2023-06-12] MEDS: GABAPENTIN 300 MG CAP PO SCH (20:36)
[2023-06-12] MEDS: DULoxetine HCL 30 MG CAPSULE.DR PO SCH (20:36)
[2023-06-12] MEDS: ATORVASTATIN 40 MG TAB PO SCH (20:36)
[2023-06-12 21:39] LABS: Glucose,Whole Blood 111 mg/dL (70-110)
[2023-06-12] MEDS ORDERED: ALPRAZolam 0.5 MG TAB PO STA (22:08)
[2023-06-13 06:10] LABS: Glucose,Whole Blood 145 mg/dL (70-110)
[2023-06-13] MEDS: INSULIN ASPART (NovoLOG) 100 UNIT/ML VIAL SQ SCH ×4 (06:13→21:12)
[2023-06-13] MEDS: ENOXAPARIN 40 MG/0.4 ML SYRINGE SQ SCH (08:11)
[2023-06-13] MEDS: ASPIRIN 81 MG PO SCH (08:12)
[2023-06-13] MEDS: TOPIRAMATE 25 MG TAB PO SCH (08:12)
[2023-06-13] MEDS: PROPRANOLOL 20 MG TAB PO SCH ×2 (08:12→21:21)
[2023-06-13] MEDS: GABAPENTIN 300 MG CAP PO SCH ×3 (08:12→21:12)
[2023-06-13] MEDS: traMADol 50 MG TAB PO SCH ×2 (08:12→12:58)
[2023-06-13 09:25] LABS: ALT 30 U/L (10-49); AST 23 U/L (14-35); Albumin 4.1 d/dL (3.8-4.9); Albumin/Globulin Ratio 2.41 Ratio (1.60-3.17); Alkaline Phosphatase 66 U/L (41-126); BUN/Creat Ratio 16.67 Ratio (12.00-20.00); Calcium 9.8 mg/dL (8.7-10.3); Carbon Dioxide 25.3 mmol/L (21.6-31.8); Chloride 107 mmol/L (96-109); Globulin 1.7 d/dL (1.6-3.3); Glucose 162 mg/dL (70-110); Phosphorus 3.8 mg/dL (2.4-5.1); Potassium 4.4 mmol/L (3.5-5.5); Sodium 143 mmol/L (135-145); Total Bilirubin 0.3 mg/dL (0.3-1.2); Total Protein 5.8 d/dL (6.2-8.2)
[2023-06-13 10:37] LABS: Glucose,Whole Blood 276 mg/dL (70-110)
--- NOTE | 2023-06-13 10:45 | CT ---
EXAMINATION TYPE: CT brain wo con DATE OF EXAM: 06/13/2023 COMPARISON: 10/05/2022 HISTORY: AMS CT DLP: [address] of the brain was performed. The ventricles, basal cisterns and sulci overlying the cerebral convexities demonstrate mild enlargem ent. There is no evidence for intracranial hemorrhage or sulcal effacement. There is decreased attenuation about the periventricular white matter and deep white matter of both c erebral hemispheres, compatible with chronic small vessel ischemia. Differential diagnosis does inclu de demyelination. No mass effects are seen.No midline shift. Stable third ventricle colloid cyst without hydrocephalus. Osseous calvarium is intact. If symptoms persist consider MRI. IMPRESSION: 1. Age related atrophic and chronic small vessel ischemic change without acute intracranial process s een at this time.
--- NOTE | 2023-06-13 10:57 | P.CNNES ---
History of Present Illness Consult date: 06/13/23 Requesting physician: Calli Stock Reason for Consult: possible seizure? History of Present Illness: This is an 83-year-old gentleman with history of diabetes, perform neuropathy, hypertension, hypercholesterolemia, low back pain, GI bleed, coronary artery disease status post stent who presented emergency department because of tremor. Some of the history is obtained from the patient as well as his caregiver who are bedside. Patient gives a very thorough history and he stated that he is doing well and he takes tramadol for his lower back pain but is having getting weak refills for the tramadol from the [facility] so therefore he tried to stop the medication abruptly and he knows he is having tremor of his body and episode of confusion. Patient denies of any difficulty swallowing, any visual disturbance, any focal weakness that's new, any new numbness. According to the patient's primary attending and nurse today he had 2 episode of becoming unresponsiveness with nonrhythmic tremor and would not respond to sternal rub. He had an episode while he was a at [address] witnessed by nursing staff and one ep isode while he was in the CT. Patient does not have any history of seizures. Per nursing staff the patient had crying episodes yesterday and had the today had blank stares lasting at least 30 seconds and while he was at the CT had an episode lasting for minutes. The patient he has underlying history of essential tremor. She states she smokes 3 cigarettes a day and he has cut down significantly in which she was smoking a pack a day. He denies any illicit drug use or alcohol use. Of note patient has an old injury at the age of 68 years old of the right upper extremity and he had tendon revision and as a result he has atrophy in the hand and has a scar in the right upper extremity in the forearm Some of the workup during his hospital visit consisted of: Initial temperature is 96.5 Fahrenheit oral CBC with differential is unremarkable Glucose on initial presentation was 107, calcium is 10.0, phosphorus 2.3, magnesium is 1.9. AST ALT and sodium as well as BUN creatinine are within michaelle l limits Urinalysis negative for underlying ureter tract infection Urine drug screen is not detected. Serum alcohol was less than 10, acetaminophen is less than 10 and salicylates is less than 1.0 Review of Systems Review of system: The 12 point system was reviewed and apparent positive and negative per HPI. Past Medical History Past Medical History: Coronary Artery Disease (CAD), Diabetes Mellitus, GI Bleed , Hyperlipidemia, Osteoarthritis (OA) Additional Past Medical History / Comment(s): ESSENTIAL TREMORS, GI bleed 10/2017, diverticulitis, gallstones, some loss of use of rt arm, herniated disk, spinal stenosis History of Any Multi-Drug Resistant Organisms: None Reported Past Surgical History: Cholecystectomy Additional Past Surgical History / Comment(s): 3 cardiac stents, surgery on rt arm x 3 -fx as child, left eyelid surgery Past Anesthesia/Blood Transfusion Reactions: No Reported Reaction Date of Last Stent Placement:: 1999 Past Psychological History: Anxiety, Depression, Panic Disorder, Schizophrenia Smoking Status: Current every day smoker Past Alcohol Use History: None Reported Additional Past Alcohol Use History / Comment(s): SMOKES 1/2 PPD, SINCE AGE 20 Past Drug Use History: None Reported - Past Family History Mother Family Medical History: No Reported History family Family Medical History: Coronary Artery Disease (CAD) Medications and Allergies Home Medications Medication Instructions Recorded Confirmed Type Atorvastatin [Lipitor] 40 mg PO HS 01/01/17 06/12/23 History Aspirin [Adult Low Dose Aspirin EC] 81 mg PO DAILY 05/29/18 06/12/23 History Cholecalciferol [Vitamin D3 (10 400 unit PO DAILY 05/29/18 06/12/23 History Mcg = 400 Iu)] methocarbamoL [Robaxin] 500 mg PO BID 04/04/22 06/12/23 History metFORMIN HCL 1,000 mg PO BID 06/30/22 06/12/23 History Insulin Glargine,Hum.rec.anlog 20 unit SQ DAILY 07/04/22 06/12/23 History [Insulin Glargine Solostar] Folic Acid 1 mg PO DAILY 07/17/22 06/12/23 History Magnesium Oxide [Mag-Ox] 250 mg PO DAILY 07/17/22 06/12/23 History DULoxetine HCL [Cymbalta] 30 mg PO HS 11/02/22 06/12/23 History Multivitamins, Thera [Multivitamin 1 tab PO DAILY 11/02/22 06/12/23 History (formulary)] Naproxen [Naprosyn] 375 mg PO BID 11/02/22 06/12/23 History Gabapentin [Neurontin] 300 mg PO TID #9 cap 11/15/22 06/12/23 Rx Erythromycin Ophth Oint [Romycin 1 applic LEFT EYE HS 06/12/23 06/12/23 History Ophth Oint] Insulin Aspart [Insulin Aspart 10 unit SQ AC-TID 06/12/23 06/12/23 History Flexpen] Propranolol HCl [Inderal] 60 mg PO BID 06/12/23 06/12/23 History Topiramate [Topamax] 25 mg PO DAILY 06/12/23 06/12/23 History traMADol HCl [Ultram] 50 mg PO QID 06/12/23 06/12/23 History Allergies Allergy/AdvReac Type Severity Reaction Status Date / Time No Known Allergies Allergy Verified 06/12/23 10:28 Physical Examination - Vital Signs Vital Signs: Vital Signs Temp Pulse Pulse Resp BP BP Pulse Ox 06/13/23 08:59 54 L 16 152/76 99 06/13/23 07:00 97.5 F L 51 L 16 134/73 98 06/13/23 03:54 96.9 F L 52 L 19 120/67 95 06/12/23 19:18 98.1 F 64 19 132/78 95 06/12/23 16:20 75 18 119/69 96 Intake and Output 06/12/23 06/13/23 06/13/23 22:59 06:59 14:59 Intake Total 118 118 Output Total 600 275 Balance -482 -275 118 Intake: Oral 118 118 Output: Urine 600 275 Other: Voiding Method Urinal Urinal Urinal Weight 95.708 kg GENERAL: The patient is lying in bed and is not in acute distress. NEUROLOGICAL: Higher mental function: The patient is awake, alert, oriented to self, place and time. Patient is following commands. No aphasia and no neglect. Cranial nerves: The pupils are round, equal and reactive to light. Visual valdovinos are full to confrontation throughout. Extraocular movement is intact no nystagmus is noted. Facial sensation is normal to touch throughout. The facial strength is normal throughout. Hearing is moderately to sevely decreased bilaterally to hand rub. Tongue is midline and moved [id number] without any difficulty. No dysarthria is noted. Shoulder shrug is normal bilaterally. Motor: The strength is left ankle dorsiflexion is 2-3 while plantarflexion is 3- 4. Right hand hospice consultant is 5-. Otherwise 5 over 5 throughout. Has atrophy in right hand and scar over the right forearm (old since old injury since 8 years old). Has nonrhythmic intermittent tremor of the hands but seems inconsistent and would happen left hand or bilateral hands and is responsive during these episode then would wax and wane. Cerebellum: Normal finger to nose bilaterally. Sensation: Decrease to touch over the left distal lower extremity. Plantars are mute bilaterally. Results - Laboratory Findings CBC and BMP: 06/11/23 22:32 06/13/23 05:50 Abnormal Lab Findings: Abnormal Labs 06/11/23 06/12/23 06/12/23 22:32 00:52 08:13 Chloride 108 H Carbon Dioxide 17 L Glucose 107 H POC Glucose (mg/dL) 134 H Total Protein Urine Protein Trace H 06/12/23 06/12/23 06/12/23 12:25 17:34 18:39 Chloride Carbon Dioxide Glucose POC Glucose (mg/dL) 149 H 199 H 147 H Total Protein Urine Protein 06/12/23 06/13/23 06/13/23 21:36 05:50 06:09 Chloride Carbon Dioxide Glucose 162 H POC Glucose (mg/dL) 111 H 145 H Total Protein 5.8 L Urine Protein Assessment and Plan Assessment: This is an 83-year-old gentleman who has chronic lower back pain who has stopped the tramadol recently and is is having the recurrent episode of blank stares, nonrhythmic movement of extremities and is nonresponsive during these episodes Episodes of blank stares with nonrhythmic movement of extremities and unresponsiveness: Rule out seizure Diabetes mellitus Peripheral neuropathy Chronic lower back pain Old Left foot drop Hypertension Hypercholesteremia Plan: An EEG is ordered and is pending CT of the head is ordered and pending the image to be uploaded. If negative upper so with MRI of the brain with and without. I ordered orthostatic vitals, carotid duplex, 2-D echo TSH, hemoglobin A1c, vitamin B-12, folate, ammonia is ordered by the primary team is pending Patient is on seizure precaution I'll not start the patient on any antiepileptic drug unless obtaining the EEG. Patient is on gabapentin 300 mg 1 tablet 3 times a day is on topiramate 25 mg daily. Recommend holding the tramadol to assess is any relationship to symptoms CONSIDER getting a CT of the lumbar spine with the patient is more stable and is able to cooperate for imaging Continue neuro checks Cardiac monitoring PT is consulted in addition I also consulted occupation therapy We'll defer the rest of the medical management to primary team Plan discussed with patient, his caregiver was at bedside, primary attending and his nurse. UPDATE: The telemetry tech notified me at, and see the patient and I saw the patient and the patient had an episode of unresponsiveness bun the EEG there is no EEG correlate. So he would have episode of nonrhythmic movement of extremities briefly and also there is no correlation for seizure. I'll wait for the entire study to be completed then the will determine if he is having any epileptic seizures Time with Patient: Greater than 30
[2023-06-13 11:54] LABS: Glucose,Whole Blood 295 mg/dL (70-110)
--- NOTE | 2023-06-13 12:19 | US ---
EXAMINATION TYPE: US carotid duplex BILAT DATE OF EXAM: 06/13/2023 COMPARISON: NONE CLINICAL INDICATION: Male, 83 years old with history of syncope; Syncope TECHNIQUE: Carotid duplex ultrasound examination. Indirect Doppler criteria was utilized. FINDINGS: EXAM MEASUREMENTS: RIGHT: Peak Systolic Velocity (PSV) cm/sec ----- Right CCA: 107 ----- Right ICA: 73.4 ----- Right ECA: 117 ICA/CCA ratio: 0.7 RIGHT: End Diastole cm/sec ----- Right CCA: 11.7 ----- Right ICA: 13.6 ----- Right ECA: 0.0 LEFT: Peak Systolic Velocity (PSV) cm/sec ----- Left CCA: 72.8 ----- Left ICA: 79.8 ----- Left ECA: 134 ICA/CCA ratio: 1.1 LEFT: End Diastole cm/sec ----- Left CCA: 15.6 ----- Left ICA: 24.1 ----- Left ECA: 0.0 VERTEBRALS (direction of flow): Right Vertebral: Unable to visualize Left Vertebral: Antegrade Rhythm: Normal HANDKERCHIEF MAKER NOTES: No significant stenosis seen IMPRESSION: No significant hemodynamic stenosis identified. Criteria for Assigning % of Stenosis / Diameter reduction (Estimation based on the indirect measurements of the internal carotid artery velocities (ICA PSV). 1. Normal (no stenosis)=ICA PSV < 125 cm/s: ratio < 2.0: ICA EDV<40 cm/s. 2. Less than 50% stenosis=ICA PSV < 125 cm/s: ratio < 2.0: ICA EDV<40 cm/s. 3. 50 to 69% stenosis=ICA PSV of 125 to 230 cm/s: ration 2.0 ? 4.0: ICA EDV 40-100 cm/s. 4. Greater than 70% stenosis to near occlusion= ICA PSV > 230 cm/s: ratio > 4.0: ICA EDV > 100 cm/s. 5. Near occlusion= ICA PSV velocities may be low or undetectable: variable ratio and ICA EDV. 6. Total occlusion=unable to detect flow.
[2023-06-13 13:42] LABS: Basophils # (A) 0.07 X 10*3/uL (0.00-0.10); Eosinophils # (A) 0.19 X 10*3/uL (0.04-0.35); Eosinophils % (A) 2.7 %; HCT 38.5 % (39.6-50.0); HGB 12.5 d/dL (13.0-17.0); Lymphocytes # (A) 1.96 X 10*3/uL (0.90-5.00); MCH 30.4 pg (27.0-32.0); MCHC 32.5 d/dL (32.0-37.0); MCV 93.7 FL (80.0-97.0); Mean Platelet Volume 9.6 FL (9.5-12.2); Monocytes # (A) 0.62 X 10*3/uL (0.20-1.00); Monocytes % (A) 8.9 %; NRBC Per 100 WBC 0 X 10*3/uL (0.00-0.01); Neutrophils # (A) 4.13 X 10*3/uL (1.80-7.70); Platelet Count 169 X 10*3/uL (140-440); RBC 4.11 X 10*6/uL (4.40-5.60); RDW 14.9 % (11.5-14.5)
[2023-06-13 15:44] LABS: African American GFR (CKD) >90 (>60 ml/min/1.73 sqM); Anion Gap 8 mmol/L; Blood Urea Nitrogen 13 mg/dL (9-20); Calcium 8.9 mg/dL (8.4-10.2); Carbon Dioxide 24 mmol/L (22-30); Chloride 105 mmol/L (98-107); Glucose 202 mg/dL (74-99); Non-African American GFR(CKD) 81 (>60 ml/min/1.73 sqM); Potassium 4.3 mmol/L (3.5-5.1); Sodium 137 mmol/L (137-145)
--- NOTE | 2023-06-13 15:57 | P.PN ---
Subjective Progress Note Date: 06/13/23 Patient is a 83-year-old male with a PMH of type II DM, CAD status post multiple stents, peripheral neuropathy, chronic low back pain, hypertension, and hyperlipidemia who presents to the emergency room with complaints of tremors. The patient reports that [facility] will need to [facility] monthly urine drug testing to continue to receive his tramadol. The patient reports that he got upset and flushed his tramadol down the toilet 2 days ago and thereby has not taken it since then. He reports that yesterday he started having tremors involving his upper and lower extremities, which went him from sleeping. Patient reported some depression without suicidal ideation. Lab oratory evaluation in the emergency room is reviewed with chloride 108, CO2 17, glucose 107, UA unremarkable, and urine tox cause negative. 06/13 This morning, case was discussed with Letty ST. Patient had multiple episodes on unresponsiveness staring out into space which he did not respond to sternal run. RN also reported generalized tremors. He was also crying spontenously. This spontaneously resolved. Apparently, he had similar episodes yesterday. There were no noted FND. fisher crab denies any alcohol abuse. Patient was seen with Dr. Garcia at bedside. He did not have any unresponsive episodes during this encounter. He is answering questions appropriately. Vital signs appear stable, bradycardic with HR in the 50s. CBC showed Hg of 12.5. CMP showed glucose of 162. Hg A1c 6.6. Vital signs reviewed General: non toxic, no distress, appears at stated age, normal weight Derm: no unusual rashes/lesions, warm Head: atraumatic, normocephalic, symmetric Eyes: EOMI, no lid lag, anicteric sclera ENT: Nose and ears atraumatic Neck: No cervical lymphadenopathy, trachea midline, supple Cardiovascular: S1S2 reg, no murmur, no edema Lungs: CTA bilateral, no rhonchi, no rales, no accessory muscle use Ext: muscle strength 5 out of 5 in all 4 extremities grossly, no gross muscle atrophy, no contractures Neuro: no gross focal neuro deficits, resting and intention tremors noted Psych: Alert, oriented, appropriate affect Unresponsive episode Resting and intention tremor Opiate withdrawal Chronic conditions: Type 2 DM, CAD, LBP, HTN, HLD Based on my assessment of this patient, this patient meets a high complexity level of care. Patient has an acute diagnosis of tremors and unresponsiveness that poses a threat to life or bodily function. Unresponsive episode: Obtain TSH, B12, Folate, Ammonia. CT head ordered. EEG ordered. Seizure and Fall precautions. Telemetry monitoring. Neurology consulted. Resting and intention tremor: Continue Propranolol. Workup as above. Opiate withdrawal: Hold tramadol due to above. I have reviewed the following groundwater consultant notes: Neurology note. I have reviewed the results of the following tests: CBC, CMP, A1c. I have ordered the following tests: CT head. MRI brain. EEG. TSH. B12. Folate I have discussed the care of this patient with the following independent historian: Discussed with Ltety ST I have independently interpreted the following test below: I have discussed the management of this patient with the following physician: Discussed with Dr. Garcia Objective - Vital Signs Vital signs: Vital Signs Temp 97.5 F L 06/13/23 07:00 Pulse 54 L 06/13/23 08:59 Resp 16 06/13/23 08:59 BP 152/76 06/13/23 08:59 Pulse Ox 99 06/13/23 08:59 FiO2 Intake & Output 06/12/23 06/13/23 06/13/23 18:59 06:59 18:59 Intake Total 118 236 Output Total 875 150 Balance 118 -875 86 Weight 95.708 kg Intake: Oral 118 236 Output: Urine 875 150 Other: Voiding Method Urinal Urinal Urinal - Labs CBC & Chem 7: 06/13/23 05:50 06/13/23 15:03 Labs: Abnormal Lab Results - Last 24 Hours (Table) 06/12/23 06/12/23 06/12/23 Range/Units 17:34 18:39 21:36 RBC (4.40-5.60) X 10*6/uL Hgb (13.0-17.0) d/dL Hct (39.6-50.0) % RDW (11.5-14.5) % Glucose (70-110) mg/dL POC Glucose (mg/dL) 199 H 147 H 111 H (70-110) mg/dL Hemoglobin A1c (<=6.0) % Total Protein (6.2-8.2) d/dL 06/13/23 06/13/23 06/13/23 Range/Units 05:50 05:50 05:50 RBC 4.11 L (4.40-5.60) X 10*6/uL Hgb 12.5 L (13.0-17.0) d/dL Hct 38.5 L (39.6-50.0) % RDW 14.9 H (11.5-14.5) % Glucose 162 H (70-110) mg/dL POC Glucose (mg/dL) (70-110) mg/dL Hemoglobin A1c 6.6 H (<=6.0) % Total Protein 5.8 L (6.2-8.2) d/dL 06/13/23 06/13/23 06/13/23 Range/Units 06:09 10:35 11:52 RBC (4.40-5.60) X 10*6/uL Hgb (13.0-17.0) d/dL Hct (39.6-50.0) % RDW (11.5-14.5) % Glucose (70-110) mg/dL POC Glucose (mg/dL) 145 H 276 H 295 H (70-110) mg/dL Hemoglobin A1c (<=6.0) % Total Protein (6.2-8.2) d/dL 06/13/23 Range/Units 15:03 RBC (4.40-5.60) X 10*6/uL Hgb (13.0-17.0) d/dL Hct (39.6-50.0) % RDW (11.5-14.5) % Glucose 202 H (70-110) mg/dL POC Glucose (mg/dL) (70-110) mg/dL Hemoglobin A1c (<=6.0) % Total Protein (6.2-8.2) d/dL
[2023-06-13 16:52] LABS: Glucose,Whole Blood 114 mg/dL (70-110)
--- NOTE | 2023-06-13 17:03 | CA ---
Transthoracic Echo Report Name: Pete Tyson Age: 83 Gender: M : 1940 Exam Date: 06/13/2023 11:47 Exam Location: [place] [facility] Ht (in): 76 Wt (lb): 211 Ordering Physician: Dick Garcia MD Attending/Referring Phys: Edger Runner Slime Castellanos [facility] Procedure CPT: Indications: Syncope Cardiac Hx: Technical Quality: Fair Contrast 1: Total Dose (mL): Contrast 2: Total Dose (mL): MEASUREMENTS (Male / Female) Normal Values 2D ECHO LV Diastolic Diameter PLAX 5.2 cm 4.2 - 5.9 / 3.9 - 5.3 cm LV Systolic Diameter PLAX 3.3 cm IVS Diastolic Thickness 1.0 cm 0.6 - 1.0 / 0.6 - 0.9 cm LVPW Diastolic Thickness 1.1 cm 0.6 - 1.0 / 0.6 - 0.9 cm LV Relative Wall Thickness 0.4 LVOT Diameter 2.0 cm Ascending Aorta Diameter 3.9 cm M-MODE Aortic Root Diameter MM 3.0 cm LA Systolic Diameter MM 4.0 cm LA Ao Ratio MM 1.3 AV Cusp Separation MM 1.4 cm DOPPLER AV Peak Velocity 170.7 cm/s AV Peak Gradient 11.7 mmHg AV Mean Velocity 114.5 cm/s AV Mean Gradient 6.2 mmHg AV Velocity Time Integral 37.0 cm LVOT Peak Velocity 89.1 cm/s LVOT Peak Gradient 3.2 mmHg LVOT Velocity Time Integral 23.1 cm LVOT Stroke Volume 72.0 cm??? LVOT Stroke Volume Index 31.7 ml/m??? LVOT Cardiac Index 1615.4 cm???/min???m??? AV Area Cont Eq vti 1.9 cm??? AV Area Cont Eq pk 1.6 cm??? Mitral E Point Velocity 54.4 cm/s Mitral A Point Velocity 92.2 cm/s Mitral E to A Ratio 0.6 MV Deceleration Time 316.8 ms LV E' Lateral Velocity 8.6 cm/s Mitral E to LV E' Lateral Ratio 6.3 LV E' Septal Velocity 7.1 cm/s Mitral E to LV E' Septal Ratio 7.7 TR Peak Velocity 169.8 cm/s TR Peak Gradient 11.5 mmHg Right Atrial Pressure 3.0 mmHg Pulmonary Artery Systolic Pressu 14.5 mmHg Right Ventricular Systolic Press 14.5 mmHg FINDINGS Left Ventricle Left ventricular cavity size normal. Mildly increased posterior wall thickness. No obvious regional wall motion abnormalities. Left ventricular ejection fraction is estimated at 55-60%. Right Ventricle Normal right ventricular size and function. Right Atrium Normal right atrial size. Left Atrium Mild left atrial dilatation. Mitral Valve Structurally normal mitral valve. Trace mitral regurgitation. Aortic Valve Trileaflet aortic valve. Diffuse thickening of the aortic valve cusps with reduced excursion. Aortic valve sclerosis. No aortic regurgitation. Tricuspid Valve Structurally normal tricuspid valve. Trace tricuspid regurgitation. Pulmonic Valve Structurally normal pulmonic valve. No pulmonic regurgitation. Pericardium No pericardial effusion. Aorta Normal size aortic root and mildly dilated proximal ascending aorta. CONCLUSIONS Normal LV systolic function Previewed by: Dr. Brandon Hawkins MD (Electronically Signed) Final Date: 13 June 2023 17:02
--- NOTE | 2023-06-13 19:35 | EEG ---
ELECTROENCEPHALOGRAM REPORT CLINICAL HISTORY: This is an 83-year-old gentleman, who was having episodes of staring off as well as shaking of extremities. The video EEG is obtained to evaluate for seizure and epileptiform activity. RELEVANT MEDICATIONS: 1. Gabapentin. 2. Topamax. EEG TYPE: A routine 21-channel EEG is obtained with video using the 10/20 electrode placement system. DESCRIPTION: Wakefulness is obtained. The background consists of very low voltage of 8 to 9 Hz activity. There is no physiological stage II sleep architecture. There is no focal slowing. INTERICTAL AND ICTAL: Patient had multiple episodes, where he was unresponsive and had shaking, and his episodes did not correlate for any seizures. One of the episodes, in which he was unresponsive, was at 10:23:06 of the recording of the study. The patient had eyes open, not responding. Even with a strong amin rub of the nurse as well painful stimuli over the left forearm, he was not responding. At that time, he did not have a shaking episode, and there are no epileptiform discharges or seizure during the Then at10:24:49 of the study, the patient all of the sudden started responding and following commands. Another example is at the beginning of the study at 10:14:14 of the recording, the patient had his eyes close and started having shaking of his head, nonrhythmic as well as nonrhythmic movement of entire extremities and body, and this episode lasted for about 40 seconds, and electrographically, the patient had 3.5 to 4.5 theta activity, and all of the sudden, the episode resolved without postictal electrographic discharges. Another episode was at 10:15:06, the patient had nonrhythmic shaking of the right upper extremity, eyes close, and the patient had 4.5 delta activity over the left central as well as the right temporal. The patient had diffuse myogenic artifact, and then there were no postictal electrographic changes on the EEG. No epileptic seizures or discharges noted. ACTIVATION PROCEDURE: Photic stimulation and hyperventilation are not performed. CLINICAL CORRELATION: This is a normal routine EEG. During the study, his episodes of unresponsiveness and body shaking were captured and are non-epileptic in nature. The background is normal. There is no focal slowing, epileptiform discharges or seizure during the study. Clinical correlation is recommended. MMODL / IJN: [id number] / [facility]ITALGarret
--- NOTE | 2023-06-13 20:05 | MR ---
EXAMINATION TYPE: MR brain wo/w con DATE OF EXAM: 06/13/2023 COMPARISON: CT brain 06/13/2023 HISTORY: Seizure CONTRAST: Performed utilizing 9.5 mL intravenous Gadavist gadolinium contrast. TECHNIQUE: Multiplanar, multiecho imaging on a 3.0 Radha magnet is performed through the brain. Stud y is performed within 24 hours of arrival to the hospital. The craniovertebral junction is normal. The pituitary is normal. Diffusion-weighted imaging is performed. No abnormal hyperintensity is present to suggest an acute i ntracranial infarct or acute ischemic change. Signal within the brain appears normal. Temporal lobes appear symmetrical with normal signal. Ventricles and sulci are somewhat prominent for the patient age. Temporal horn dilatation is not evid ent. There is a filling defect within the third ventricle near the foramen of Singh. 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 No abnormal enhancement is evident. IMPRESSIONS: 1. Mild age-related atrophy. 2. No acute intracranial process. 3. Stable appearing colloid cyst third ventricle
[2023-06-13 20:54] LABS: Glucose,Whole Blood 192 mg/dL (70-110)
[2023-06-13] MEDS: ATORVASTATIN 40 MG TAB PO SCH (21:12)
[2023-06-13] MEDS: DULoxetine HCL 30 MG CAPSULE.DR PO SCH (21:12)
[2023-06-13] MEDS ORDERED: HYDROcodone/APAP 5-325MG 1 EACH TAB PO STA (21:33)
[2023-06-13 23:49] VITALS: RESP 18
[2023-06-14 05:56] LABS: Glucose,Whole Blood 173 mg/dL (70-110)
[2023-06-14] MEDS: INSULIN ASPART (NovoLOG) 100 UNIT/ML VIAL SQ SCH ×2 (06:39→12:40)
[2023-06-14] MEDS: PROPRANOLOL 20 MG TAB PO SCH (09:11)
[2023-06-14] MEDS: ASPIRIN 81 MG PO SCH (09:11)
[2023-06-14] MEDS: TOPIRAMATE 25 MG TAB PO SCH (09:11)
[2023-06-14] MEDS: GABAPENTIN 300 MG CAP PO SCH (09:11)
[2023-06-14] MEDS: ENOXAPARIN 40 MG/0.4 ML SYRINGE SQ SCH (09:12)
[2023-06-14] MEDS ORDERED: CYANOCOBALAMIN 1,000 MCG/ML 1 ML VIAL IM ONE (11:00)
--- NOTE | 2023-06-14 11:34 | P.CRDCN ---
History of Present Illness Consult date: 06/14/23 Reason for Consult (text): Bradycardia, ventricular tachycardia History of present illness: History of present illness: This is an 83-year-old male with past medical history of diabetes mellitus type 2, coronary artery disease with previous stenting, peripheral neuropathy, chronic back pain, hypertension, hyperlipidemia. We have been asked to evaluate the patient for bradycardia and ventricular tachycardia. Patient presented to the emergency center on 06/12 for tremors after he had a rapidly stop tramadol 2 days prior. Patient has been seen by neurology and psychiatry. Last evening around 2200, patient was noted to have episode of V. tach and patient was found laying flat on his back without twitching or any movements. Patient has had episodes of violent lately shaking and being unresponsive. Patient has history of having a cardiac stent placed in 1988 and 2 stents placed in 1989. He has in the past followed with a lead java programmer at the [place] in [place] but has not done that for several years now. He denies having any chest pain or shortness of breath. His family member mentioned that he had a panic attack in the emergency center. EKG obtained this morning is sinus rhythm no arrhythmia, telemetry reviewed in no episodes of V. tach, appears to be artifact. Echocardiogram performed 06/13/2023 revealed normal LV systolic function. WBC 7, hemoglobin 12.5, platelet count 169. Sodium 137, potassium 4.3, creatinine 0.88. Hemoglobin A1c is 6.6. Liver function tests are normal. Ammonia less than 9. TSH 1.5. Urinalysis, urine drug screen negative. Salicylate level acetaminophen, serum alcohol levels negative Home cardiac medications: Aspirin 81 mg daily, Lipitor 40 mg at bedtime, Inderal 60 mg twice daily Review Of Systems: At the time of my evaluation: Constitutional: No fever, no chills. EENT: No headache. No dizziness. Lungs: No shortness of breath, cough, no sputum production. No wheezing. Cardiovascular: No chest pain, no lower extremity edema. No palpitations. No paroxysmal nocturnal dyspnea. No orthopnea. No lightheadedness or dizziness. No syncopal episodes. Abdominal: No abdominal pain. No nausea, vomiting. No diarrhea. Musculoskeletal: No myalgias. No muscle weakness, no frequent falls. No back pain. No neck pain. Integumentary: No wounds. No rash. No unusual bruising. Neurologic: No aphasia. No facial droop. No change in mentation. Reports tremor Physical examination: Gen: This is an 83-year-old male resting bed and appears to be comfortable in no acute distress. VS: reviewed HEENT: Head is atraumatic, normocephalic. Pupils equal, round. Sclerae is anicteric. NECK: Supple. No JVD. LUNGS: Clear to auscultation. No wheezes or rhonchi. No intercostal retraction s. HEART: Regular rate and rhythm. ABDOMEN: Soft No tenderness. EXTREMITIES: No pedal edema. Feet are cold to touch. Decreased pulses bilaterally NEUROLOGICAL: Patient is awake, alert and oriented x3. Assessment: Tremors V. tach ruled out History of coronary artery disease Peripheral artery disease Plan: Continue patient's current cardiac medications No further cardiac workup at this time. Patient may follow-up in the office with Dr. Chawla in 1-2 weeks after discharge Cardiology will sign off and follow on an as-needed basis. Please reconsult for any new concerns. Thank you kindly for this consultation. Nurse practitioner note has been reviewed, I agree with documented findings and plan of care. Patient was seen and examined. Past Medical History Past Medical History: Coronary Artery Disease (CAD), Diabetes Mellitus, GI Bleed, Hyperlipidemia, Osteoarthritis (OA) Additional Past Medical History / Comment(s): ESSENTIAL TREMORS, GI bleed 10/2017, diverticulitis, gallstones, some loss of use of rt arm, herniated disk, spinal stenosis History of Any Multi-Drug Resistant Organisms: None Reported Past Surgical History: Cholecystectomy Additional Past Surgical History / Comment(s): 3 cardiac stents, surgery on rt arm x 3 -fx as child, left eyelid surgery Past Anesthesia/Blood Transfusion Reactions: No Reported Reaction Date of Last Stent Placement:: 1999 Past Psychological History: Anxiety, Depression, Panic Disorder, Schizophrenia Smoking Status: Current every day smoker Past Alcohol Use History: None Reported Additional Past Alcohol Use History / Comment(s): SMOKES 1/2 PPD, SINCE AGE 20 Past Drug Use History: None Reported - Past Family History Mother Family Medical History: No Reported History family Family Medical History: Coronary Artery Disease (CAD) Medications and Allergies Home Medications Medication Instructions Recorded Confirmed Type Atorvastatin [Lipitor] 40 mg PO HS 01/01/17 06/12/23 History Aspirin [Adult Low Dose Aspirin EC] 81 mg PO DAILY 05/29/18 06/12/23 History Cholecalciferol [Vitamin D3 (10 400 unit PO DAILY 05/29/18 06/12/23 History Mcg = 400 Iu)] methocarbamoL [Robaxin] 500 mg PO BID 04/04/22 06/12/23 History metFORMIN HCL 1,000 mg PO BID 06/30/22 06/12/23 History Insulin Glargine,Hum.rec.anlog 20 unit SQ DAILY 07/04/22 06/12/23 History [Insulin Glargine Solostar] Folic Acid 1 mg PO DAILY 07/17/22 06/12/23 History Magnesium Oxide [Mag-Ox] 250 mg PO DAILY 07/17/22 06/12/23 History DULoxetine HCL [Cymbalta] 30 mg PO HS 11/02/22 06/12/23 History Multivitamins, Thera [Multivitamin 1 tab PO DAILY 11/02/22 06/12/23 History (formulary)] Naproxen [Naprosyn] 375 mg PO BID 11/02/22 06/12/23 History Gabapentin [Neurontin] 300 mg PO TID #9 cap 11/15/22 06/12/23 Rx Erythromycin Ophth Oint [Romycin 1 applic LEFT EYE HS 06/12/23 06/12/23 History Ophth Oint] Insulin Aspart [Insulin Aspart 10 unit SQ AC-TID 06/12/23 06/12/23 History Flexpen] Propranolol HCl [Inderal] 60 mg PO BID 06/12/23 06/12/23 History Topiramate [Topamax] 25 mg PO DAILY 06/12/23 06/12/23 History traMADol HCl [Ultram] 50 mg PO QID #12 tab 06/14/23 Rx Allergies Allergy/AdvReac Type Severity Reaction Status Date / Time No Known Allergies Allergy Verified 06/12/23 10:28 Physical Exam Vitals: Vital Signs Temp Pulse Resp BP Pulse Ox 06/14/23 08:00 55 L 06/14/23 07:57 97.8 F 53 L 18 134/78 96 06/14/23 04:00 97.7 F 70 18 136/80 96 06/14/23 02:00 55 L 18 06/13/23 23:48 97.6 F 55 L 18 120/64 95 06/13/23 20:00 98.0 F 55 L 18 156/84 96 06/13/23 17:06 98 F 57 L 16 138/76 99 Intake and Output 06/13/23 06/14/23 06/14/23 22:59 06:59 14:59 Intake Total 118 10 Output Total 525 1200 400 Balance -407 -1190 -400 Intake: IV 10 0.9 10 Oral 118 Output: Urine 525 1200 400 Other: Voiding Method Urinal Urinal # Voids 1 Results 06/13/23 05:50 06/13/23 15:03 CBC 06/13/23 Range/Units 05:50 WBC 7.00 (4.50-10.00) X 10*3/uL RBC 4.11 L (4.40-5.60) X 10*6/uL Hgb 12.5 L (13.0-17.0) d/dL Hct 38.5 L (39.6-50.0) % Plt Count 169 (140-440) X 10*3/uL Comprehensive Metabolic Panel 06/13/23 Range/Units 15:03 Sodium 137 (137-145) mmol/L Potassium 4.3 (3.5-5.1) mmol/L Chloride 105 (98-107) mmol/L Carbon Dioxide 24 (22-30) mmol/L BUN 13 (9-20) mg/dL Creatinine 0.88 (0.66-1.25) mg/dL Glucose 202 H (74-99) mg/dL Calcium 8.9 (8.4-10.2) mg/dL Current Medications Generic Name Dose Route Start Last Admin Trade Name Kaneq PRN Reason Stop Dose Admin Aspirin 81 mg 06/13/23 09:00 06/14/23 09:11 Aspirin 81 Mg PO 81 mg DAILY DAGMAR Administration Atorvastatin Calcium 40 mg 06/12/23 21:00 06/13/23 21:12 Atorvastatin 40 Mg Tab PO 40 mg HS DAGMAR Administration Dextrose/Water 25 ml 06/12/23 16:54 Dextrose 50% Syringe 50 Ml IVP PER PROTOCOL PRN Hypoglycemia Protocol Dextrose/Water 50 ml 06/12/23 16:54 Dextrose 50% Syringe 50 Ml IVP PER PROTOCOL PRN Hypoglycemia Protocol Duloxetine HCl 30 mg 06/12/23 21:00 06/13/23 21:12 Duloxetine Hcl 30 Mg Capsule.Dr PO 30 mg HS DAGMAR Administration Enoxaparin Sodium 40 mg 06/12/23 09:00 06/14/23 09:12 Enoxaparin 40 Mg/0.4 Ml Syringe SQ 40 mg DAILY DAGMAR Administration Gabapentin 300 mg 06/12/23 22:00 06/14/23 09:11 Gabapentin 300 Mg Cap PO 300 mg TID DAGMAR Administration Insulin Aspart 0 unit 06/12/23 07:30 06/14/23 06:39 Insulin Aspart (Novolog) 100 Unit/Ml Vial SQ 2 unit ACHS DAGMAR Administration Protocol Naloxone HCl 0.2 mg 06/12/23 01:22 Naloxone 0.4 Mg/Ml 1 Ml Vial IV Q2M PRN Opioid Reversal Ondansetron HCl 4 mg 06/12/23 01:22 06/12/23 01:49 Ondansetron 4 Mg/2 Ml Vial IVP 4 mg Q8HR PRN Administration Nausea And Vomiting Propranolol HCl 60 mg 06/12/23 21:00 06/14/23 09:11 Propranolol 20 Mg Tab PO 60 mg BID DAGMAR Administration Topiramate 25 mg 06/13/23 09:00 06/14/23 09:11 Topiramate 25 Mg Tab PO 25 mg DAILY DAGMAR Administration Intake and Output 06/13/23 06/14/23 06/14/23 22:59 06:59 14:59 Intake Total 118 10 Output Total 525 1200 400 Balance -407 1190 400 Intake: IV 10 0.9 10 Oral 118 Output: Urine 525 1200 400 Other: Voiding Method Urinal Urinal # Voids 1 06/13/23 05:50 06/13/23 15:03
[2023-06-14 11:48] LABS: Glucose,Whole Blood 187 mg/dL (70-110)
[2023-06-14 12:40] VITALS: BP 125/83; PULSE 56; TEMP 98
--- NOTE | 2023-06-14 13:27 | P.DS ---
Providers Date of admission: 06/12/23 01:24 Expected date of discharge: 06/14/23 Attending physician: Aleksandra Maloney MD Consults: 06/12/23 01:22 Consult Physician Routine Consulting Provider: Sammy Jorge Consult Reason/Comments: depression Do you want consulting provider notified?: Yes 06/13/23 08:59 Consult Physician Routine Consulting Provider: Dick Garcia Consult Reason/Comments: Possible seizure? Do you want consulting provider notified?: Yes 06/13/23 22:44 Consult Physician Urgent Consulting Provider: Lamont Chawla Consult Reason/Comments: bradycardia, v-tach Do you want consulting provider notified?: Yes Primary care physician: [facility] Course: Patient is a 83-year-old male with a PMH of type II DM, CAD status post multiple stents, peripheral neuropathy, chronic low back pain, hypertension, and hyperlipidemia who presents to the emergency room with complaints of tremors. The patient reports that he was recently told by the MA's office that he will need to do monthly urine drug testing to continue to receive his tramadol. The patient reports that he got upset and flushed his tramadol down the toilet 2 days ago and thereby has not taken it since then. He reports that yesterday he started having tremors involving his upper and lower extremities, which went him from sleeping. Patient reported some depression without suicidal ideation. Laboratory evaluation in the emergency room is reviewed with chloride 108, CO2 17, glucose 107, UA unremarkable, and urine tox cause negative. 06/13 This morning, case was discussed with Letty ST. Patient had multiple episodes on unresponsiveness staring out into space which he did not respond to sternal run. RN also reported generalized tremors. He was also crying spontenously. This spontaneously resolved. Apparently, he had similar episodes yesterday. There were no noted FND. bet taker denies any alcohol abuse. Patient was seen with Dr. Garcia at bedside. He did not have any unresponsive episodes during this encounter. He is answering questions appropriately. Vital signs appear stable, bradycardic with HR in the 50s. CBC showed Hg of 12.5. CMP showed glucose of 162. Hg A1c 6.6. 06/14 Patient was seen and examined. Working with PT and OT walking the hallway. The EEG was reviewed with Dr. Basha yesterday which showed no seizure-like activity while patient was having these unresponsive and shaking episodes. CT head was negative for acute change. MRI brain shows no acute intracranial process. Carotid Doppler showed no significant stenosis. Echocardiogram showed normal LV systolic function. Overnight, patient had another episode of shaking and unresponsiveness. Telemetry showed what appeared to be ventricular tachycardia. Cardiology was consulted and recommended outpatient follow-up as no V. tach was seen on telemetry likely artifact. Patient will be discharged home with tramadol by mouth for 3 days. Patient is advised follow-up with his PCP within 1-2 days of discharge. [facility] He does have findings of PAD on physical exam for which he can follow- up with Dr. Chawla. Patient verbalized understanding of the plan. Pertinent studies include brain CT, carotid Doppler, echocardiogram, EEG, MRI brain, EKG. Vital signs reviewed General: non toxic, no distress, appears at stated age, normal weight Derm: no unusual rashes/lesions, warm Head: atraumatic, normocephalic, symmetric Eyes: EOMI, no lid lag, anicteric sclera ENT: Nose and ears atraumatic Neck: No cervical lymphadenopathy, trachea midline, supple Cardiovascular: S1S2 reg, no murmur, no edema Lungs: CTA bilateral, no rhonchi, no rales, no accessory muscle use Ext: muscle strength 5 out of 5 in all 4 extremities grossly, no gross muscle atrophy, no contractures Neuro: no gross focal neuro deficits, resting and intention tremors noted Psych: Alert, oriented, appropriate affect Discharge diagnoses: Unresponsive episode Resting and intention tremor Opiate withdrawal PAD Chronic conditions: Type 2 DM, CAD, LBP, HTN, HLD This complex discharge took 35 minutes to complete. Patient Condition at Discharge: Stable Plan - Discharge Summary New Discharge Prescriptions: Continue Atorvastatin [Lipitor] 40 mg PO HS Cholecalciferol [Vitamin D3 (10 Mcg = 400 Iu)] 400 unit PO DAILY Aspirin [Adult Low Dose Aspirin EC] 81 mg PO DAILY methocarbamoL [Robaxin] 500 mg PO BID metFORMIN HCL 1,000 mg PO BID Insulin Glargine,Hum.rec.anlog [Insulin Glargine Solostar] 20 unit SQ DAILY Magnesium Oxide [Mag-Ox] 250 mg PO DAILY DULoxetine HCL [Cymbalta] 30 mg PO HS Erythromycin Ophth Oint [Romycin Ophth Oint] 1 applic LEFT EYE HS Insulin Aspart [Insulin Aspart Flexpen] 10 unit SQ AC-TID Propranolol HCl [Inderal] 60 mg PO BID Folic Acid 1 mg PO DAILY Multivitamins, Thera [Multivitamin (formulary)] 1 tab PO DAILY Naproxen [Naprosyn] 375 mg PO BID Gabapentin [Neurontin] 300 mg PO TID #9 cap Topiramate [Topamax] 25 mg PO DAILY Changed traMADol HCl [Ultram] 50 mg PO QID #12 tab Discharge Medication List Atorvastatin [Lipitor] 40 mg PO HS 01/01/17 [History] Aspirin [Adult Low Dose Aspirin EC] 81 mg PO DAILY 05/29/18 [History] Cholecalciferol [Vitamin D3 (10 Mcg = 400 Iu)] 400 unit PO DAILY 05/29/18 [History] methocarbamoL [Robaxin] 500 mg PO BID 04/04/22 [History] metFORMIN HCL 1,000 mg PO BID 06/30/22 [History] Insulin Glargine,Hum.rec.anlog [Insulin Glargine Solostar] 20 unit SQ DAILY 07/04/22 [History] Folic Acid 1 mg PO DAILY 07/17/22 [History] Magnesium Oxide [Mag-Ox] 250 mg PO DAILY 07/17/22 [History] DULoxetine HCL [Cymbalta] 30 mg PO HS 11/02/22 [History] Multivitamins, Thera [Multivitamin (formulary)] 1 tab PO DAILY 11/02/22 [History] Naproxen [Naprosyn] 375 mg PO BID 11/02/22 [History] Gabapentin [Neurontin] 300 mg PO TID #9 cap 11/15/22 [Rx] Erythromycin Ophth Oint [Romycin Ophth Oint] 1 applic LEFT EYE HS 06/12/23 [History] Insulin Aspart [Insulin Aspart Flexpen] 10 unit SQ AC-TID 06/12/23 [History] Propranolol HCl [Inderal] 60 mg PO BID 06/12/23 [History] Topiramate [Topamax] 25 mg PO DAILY 06/12/23 [History] traMADol HCl [Ultram] 50 mg PO QID #12 tab 06/14/23 [Rx] Follow up Appointment(s)/Referral(s): [facility],Clinic [Primary Care Provider] - 1-2 days Lamont Chawla MD [STAFF PHYSICIAN] - 1 Week Patient Instructions/Handouts: Seizure/Epilepsy Discharge Instructions & Follow-Up Activity/Diet/Wound Care/Special Instructions: Diet: Regular Follow up with your PCP within 1-2 days of discharge. Follow up with your Pyschiatrist within 1 week of discharge. Take all medications as advised. Discharge Disposition: HOME SELF-CARE
--- NOTE | 2023-06-14 14:37 | P.PN ---
Subjective Progress Note Date: 06/14/23 Patient seen at bedside and he feels she is doing better. I spoke with the primary team is seems the patient had the arrhythmia and they're concerned the may be his irregular movement and unresponsiveness is related to that. She denies of any headache, any new focal weakness. He states he has all ready history of choroid cyst and he follows up as an outpatient and has surviellance imaging. Objective - Vital Signs Vital signs: Vital Signs Temp 98 F 06/14/23 12:00 Pulse 56 L 06/14/23 12:00 Resp 18 06/14/23 12:00 BP 125/83 06/14/23 12:00 Pulse Ox 94 L 06/14/23 12:00 FiO2 Intake & Output 06/13/23 06/14/23 06/14/23 18:59 06:59 18:59 Intake Total 354 10 120 Output Total 450 1425 600 Balance -96 -1415 -480 Intake: IV 10 0.9 10 Oral 354 120 Output: Urine 450 1425 600 Other: Voiding Method Urinal Urinal # Voids 1 - Exam GENERAL: The patient is lying in bed and is not in acute distress. NEUROLOGICAL: Higher mental function: The patient is awake, alert, oriented to self, place and time. Patient is following commands. No aphasia and no neglect. Cranial nerves: The pupils are round, equal and reactive to light. Visual valdovinos are full to confrontation throughout. Extraocular movement is intact no nystagmus is noted. Facial sensation is normal to touch throughout. The facial strength is normal throughout. Hearing is moderately to sevely decreased bilaterally to hand rub. Tongue is midline and moved [id number] without any difficulty. No dysarthria is noted. Shoulder shrug is normal bilaterally. Motor: The strength is left ankle dorsiflexion is 2-3 while plantarflexion is 3- 4. 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 Otherwise 5 over 5 throughout. Has atrophy in right hand and scar over the right forearm (old since old injury since 8 years old). Has nonrhythmic intermittent tremor of the hands but seems inconsistent and would happen left hand or bilateral hands and is responsive during these episode then would wax and wane. Cerebellum: Normal finger to nose bilaterally. Sensation: Decrease to touch over the left distal lower extremity. Plantars are mute bilaterally. Some of the workup during his hospital visit consisted of: Initial temperature is 96.5 Fahrenheit oral CBC with differential is unremarkable Glucose on initial presentation was 107, calcium is 10.0, phosphorus 2.3, magnesium is 1.9. AST ALT and sodium as well as BUN creatinine are within normal limits TSH is 1.50 Folate is 31.90 Vitamin B12 is 259. Urinalysis negative for underlying ureter tract infection Urine drug screen is not detected. Serum alcohol was less than 10, acetaminophen is less than 10 and salicylates is less than 1.0 Routine EEG: This is normal routine EEG. During the study his episodes of unresponsiveness and body as shaking were captured and are nonepileptic in nature. The background is normal. There is no focal slowing, epileptiform discharges or seizure during this study. Clinical correlation is recommended. MRI the brain is reported as mild age-related atrophy. No acute processes. Stable appearing: Cyst third ventricle. I personally reviewed the MRI and agree with the report. Carotid duplex was reported as no significant hemodynamic stenosis identified. 2-D echo was reported as normal left ventricle systolic function. Left atrium is mild left atrial dilation. - Labs CBC & Chem 7: 06/13/23 05:50 06/13/23 15:03 Labs: Abnormal Lab Results - Last 24 Hours (Table) 06/13/23 06/13/23 06/13/23 Range/Units 15:03 15:03 16:50 Glucose 202 H (74-99) mg/dL POC Glucose (mg/dL) 114 H (70-110) mg/dL Folate 31.90 H (4.40-31.00) ng/mL 06/13/23 06/14/23 06/14/23 Range/Units 20:53 05:51 11:46 Glucose (74-99) mg/dL POC Glucose (mg/dL) 192 H 173 H 187 H (70-110) mg/dL Folate (4.40-31.00) ng/mL Assessment and Plan Assessment: This is an 83-year-old gentleman who has chronic lower back pain who has stopped the tramadol recently and is is having the recurrent episode of blank stares, nonrhythmic movement of extremities and is nonresponsive during these episodes Episodes of blank stares with nonrhythmic movement of extremities and unresponsiveness: Episodes were captured on routine EEG and they are nonepileptic. Per the primary team the patient has arrhythmia and unsure if his arrhythmia or other cause of those episodes versus psychiatric History of colloid cyst Low normal vitamin B12 of 259 Diabetes mellitus Peripheral neuropathy Chronic lower back pain Old Left foot drop Hypertension Hypercholesteremia Plan: As stated earlier patient episodes were captured on EEG and they're nonepileptic in nature. Cardiology is consulted for arrhythmia according to the primary team. Patient has known history of cold cyst and he has surveillance as an outpatient and on this MRI is reported as stable. Recommended to follow up as an outpatient for continued surveillance Patient is on his home gabapentin 300 mg 1 tablet 3 times a day for his neuropathy and is on topiramate 25 mg daily and he stated for tremor. Recommend holding the tramadol to assess is any relationship to symptoms CONSIDER getting a CT of the lumbar spine with the patient is more stable and is able to cooperate for imaging Continue neuro checks Cardiac monitoring PT, OT are consulted. We'll defer the rest of the medical management to primary team Plan discussed with patient and primary team. Time with Patient: Less than 30
[2023-06-15] MEDS ORDERED: CYANOCOBALAMIN 500 MCG TAB PO SCH (09:00)
== END 2023-06-14 15:33 | disposition home or self-care (01) ==
LOC: EC 21:57 → 6NMEDSUR 06-12 01:24 → 3SCARD 06-13 12:46
PROVIDERS: ADMIT Internal Medicine; ATTEND Internal Medicine
DX: G25.0 Essential tremor (principal); F11.23 Opioid dependence with withdrawal; E11.42 Type 2 diabetes mellitus with diabetic polyneuropathy; E11.51 Type 2 diabetes mellitus with diabetic peripheral angiopathy without gangrene; G89.29 Other chronic pain; I10 Essential (primary) hypertension; E78.00 Pure hypercholesterolemia, unspecified; I25.10 Atherosclerotic heart disease of native coronary artery without angina pectoris; M54.50 Low back pain, unspecified; F32.A Depression, unspecified; Z91.148 Patient's other noncompliance with medication regimen for other reason; R00.1 Bradycardia, unspecified; G93.0 Cerebral cysts; M21.372 Foot drop, left foot; M19.90 Unspecified osteoarthritis, unspecified site; F20.9 Schizophrenia, unspecified; F41.0 Panic disorder [episodic paroxysmal anxiety]; F17.210 Nicotine dependence, cigarettes, uncomplicated; Z95.5 Presence of coronary angioplasty implant and graft; Z79.899 Other long term (current) drug therapy; Z79.84 Long term (current) use of oral hypoglycemic drugs; Z79.82 Long term (current) use of aspirin; Z79.4 Long term (current) use of insulin; Z87.19 Personal history of other diseases of the digestive system; Z82.49 Family history of ischemic heart disease and other diseases of the circulatory system
CPT/HCPCS: 96376 ×2; 96372; 82075; 96361; 96374; 96375; 99285; 36415; 95816; 93306; 97163; 97167; 80053 ×2; 80048; 84443; 82607; 82140; 82746; 83735 ×3; 84100 ×2; 85025 ×2; 81003; 80306; 80143; 80320; 83036; 80179; 93880; 70450; 70553; G0378 ×4; J2060; J3420; J2405; J1650 ×3; A9585

== ENCOUNTER 2023-08-16 11:55 | Emergency (ER) | payer OTHER, MEDICARE ==
--- NOTE | 2023-08-16 12:14 | ED ---
General Adult HPI - General Chief complaint: Fall Stated complaint: Fall Time Seen by Provider: 08/16/23 12:00 Source: patient, EMS, RN notes reviewed, old records reviewed Mode of arrival: EMS Limitations: no limitations - History of Present Illness Initial comments: This is an 83-year-old male who presents emergency Department stating he was using his walker when he started falling to the side. Patient states he felt his car and then slid to the ground. Patient states the left side of his neck is sore he denies hitting his head he denies any headache denies any numbness or weakness. Patient states the left side of his neck is sore and he has not had that neck pain in the past. Patient denies any chest pain or back pain. Patient denies any extremity pain. Patient denies any other injury at this time. - Related Data Home Medications Medication Instructions Recorded Confirmed Atorvastatin [Lipitor] 40 mg PO HS 01/01/17 06/12/23 Aspirin [Adult Low Dose Aspirin EC] 81 mg PO DAILY 05/29/18 06/12/23 Cholecalciferol [Vitamin D3 (10 400 unit PO DAILY 05/29/18 06/12/23 Mcg = 400 Iu)] methocarbamoL [Robaxin] 500 mg PO BID 04/04/22 06/12/23 metFORMIN HCL 1,000 mg PO BID 06/30/22 06/12/23 Insulin Glargine,Hum.rec.anlog 20 unit SQ DAILY 07/04/22 06/12/23 [Insulin Glargine Solostar] Folic Acid 1 mg PO DAILY 07/17/22 06/12/23 Magnesium Oxide [Mag-Ox] 250 mg PO DAILY 07/17/22 06/12/23 DULoxetine HCL [Cymbalta] 30 mg PO HS 11/02/22 06/12/23 Multivitamins, Thera [Multivitamin 1 tab PO DAILY 11/02/22 06/12/23 (formulary)] Naproxen [Naprosyn] 375 mg PO BID 11/02/22 06/12/23 Erythromycin Ophth Oint [Romycin 1 applic LEFT EYE HS 06/12/23 06/12/23 Ophth Oint] Insulin Aspart [Insulin Aspart 10 unit SQ AC-TID 06/12/23 06/12/23 Flexpen] Propranolol HCl [Inderal] 60 mg PO BID 06/12/23 06/12/23 Topiramate [Topamax] 25 mg PO DAILY 06/12/23 06/12/23 Previous Rx's Medication Instructions Recorded Gabapentin [Neurontin] 300 mg PO TID #9 cap 11/15/22 traMADol HCL 50 mg PO 5XD 10 Days #50 tab 06/14/23 traMADol HCl [Ultram] 50 mg PO QID #12 tab 06/14/23 Ibuprofen [Motrin] 600 mg PO Q6HR PRN #20 tab 08/16/23 Allergies Allergy/AdvReac Type Severity Reaction Status Date / Time No Known Allergies Allergy Verified 06/12/23 10:28 Review of Systems ROS Statement: Those systems with pertinent positive or pertinent negative responses have been documented in the HPI. ROS Other: All systems not noted in ROS Statement are negative. Past Medical History Past Medical History: Coronary Artery Disease (CAD), Diabetes Mellitus, GI Bleed, Hyperlipidemia, Osteoarthritis (OA) Additional Past Medical History / Comment(s): ESSENTIAL TREMORS, GI bleed 10/2017, diverticulitis, gallstones, some loss of use of rt arm, herniated disk, spinal stenosis History of Any Multi-Drug Resistant Organisms: None Reported Past Surgical History: Cholecystectomy Additional Past Surgical History / Comment(s): 3 cardiac stents, surgery on rt arm x 3 -fx as child, left eyelid surgery Past Anesthesia/Blood Transfusion Reactions: No Reported Reaction Date of Last Stent Placement:: 1999 Past Psychological History: Anxiety, Depression, Panic Disorder, Schizophrenia Smoking Status: Current every day smoker Past Alcohol Use History: None Reported Past Drug Use History: None Reported - Past Family History Mother Family Medical History: No Reported History family Family Medical History: Coronary Artery Disease (CAD) General Exam - General Exam Comments Initial Comments: GENERAL: Patient is well-developed and well-nourished. Patient is nontoxic and well- hydrated and is in mild distress. ENT: Neck is soft and supple. No significant lymphadenopathy is noted. Oropharynx is clear. Moist mucous membranes. Neck has full range of motion without eliciting any pain. Patient has some left-sided trapezius muscle pain EYES: The sclera were anicteric and conjunctiva were pink and moist. Extraocular movements were intact and pupils were equal round and reactive to light. Eyelids were unremarkable. PULMONARY: Unlabored respirations. Good breath sounds bilaterally. No audible rales rho nchi or wheezing was noted. CARDIOVASCULAR: There is a regular rate and rhythm without any murmurs gallops or rubs. ABDOMEN: Soft and nontender with normal bowel sounds. SKIN: Skin is clear with no lesions or rashes and otherwise unremarkable. NEUROLOGIC: Patient is alert and oriented x3. Cranial nerves II through XII are grossly intact. Motor and sensory are also intact. Normal speech, volume and content. Symmetrical smile. MUSCULOSKELETAL: Normal extremities with adequate strength and full range of motion. LYMPHATICS: No significant lymphadenopathy is noted PSYCHIATRIC: Normal psychiatric evaluation. Limitations: no limitations Course Vital Signs 08/16/23 11:57 Temperature 97.6 F Pulse Rate 57 L Respiratory 20 Rate Blood Pressure 114/73 O2 Sat by Pulse 97 Oximetry Medical Decision Making - Medical Decision Making Was pt. sent in by a medical professional or institution (, PA, CLAY PROCESSING FACTORY WORKER, urgent care, hospital, or long-term...) When possible be specific @ -No Did you speak to anyone other than the patient for history (EMS, parent, family, police, friend...)? What history was obtained from this source @ -No Did you review nursing and triage notes (agree or disagree)? Why? @ -I reviewed and agree with nursing and triage notes Were old charts reviewed (outside hosp., previous admission, EMS record, old EKG, old radiological studies, urgent care reports/EKG's, long-term records)? Report findings @ -No old charts were reviewed Differential Diagnosis (chest pain, altered mental status, abdominal pain women, abdominal pain men, vaginal bleeding, weakness, fever, dyspnea, syncope, headache, dizziness, GI bleed, back pain, seizure, CVA, palpatations, mental health, musculoskeletal)? @ -Differential Musculoskeletal Muscular strain, contusion, ligament sprain, fracture, arthritis, septic arthritis, bursitis, cellulitis, muscle spasm, nerve compression, DVT, arterial occlusion, herpes zoster, electrolyte abnormality, tumor.... This is not meant to be in all inclusive list EKG interpreted by me (3pts min.). @ -As above X-rays interpreted by me (1pt min.). @ -None done CT interpreted by me (1pt min.). @ -CT of the brain and CT of the C-spine showed no acute abnormality U/S interpreted by me (1pt. min.). @ -None done What testing was considered but not performed or refused? (CT, X-rays, U/S, labs)? Why? @ -None What meds were considered but not given or refused? Why? @ -None Did you discuss the management of the patient with other professionals (professionals i.e. , PA, CLAY PROCESSING FACTORY WORKER, lab, RT, psych nurse, social sciences research scientist, matrix bath attendant, teacher, environmental technical officer, manager case management)? Give summary @ -No Was smoking cessation discussed for >3mins.? @ -No Was critical care preformed (if so, how long)? @ -No Were there social determinants of health that impacted care today? How? (Homelessness, low income, unemployed, alcoholism, drug addiction, transportation, low edu. Level, literacy, decrease access to med. care, group home, rehab)? @ -No Was there de-escalation of care discussed even if they declined (Discuss DNR or withdrawal of care, Hospice)? DNR status @ -No What co-morbidities impacted this encounter? (DM, HTN, Smoking, COPD, CAD, Cancer, CVA, ARF, Chemo, Hep., AIDS, mental health diagnosis, sleep apnea, morbid obesity)? @ -None Was patient admitted / discharged? Hospital course, mention meds given and route, prescriptions, significant lab abnormalities, going to OR and other pertinent info. @ -I went back and reevaluated the patient and I removed the patient's collar and patient full range of motion of the neck he did have a little tenderness in the trapezius muscle on the left but no spinous process tenderness. Patient with numbness weakness. Undiagnosed new problem with uncertain prognosis? @ -No Drug Therapy requiring intensive monitoring for toxicity (Heparin, Nitro, Insulin, Cardizem)? @ -No Were any procedures done? @ -No Diagnosis/symptom? @ -Cervical strain Acute, or Chronic, or Acute on Chronic? @ -Acute Uncomplicated (without systemic symptoms) or Complicated (systemic symptoms)? @ -Complicated Side effects of treatment? @ -No Exacerbation, Progression, or Severe Exacerbation? @ -No Poses a threat to life or bodily function? How? (Chest pain, [place], [place], pneumonia, PE, COPD, DKA, ARF, appy, cholecystitis, CVA, Diverticulitis, Homicidal, Suicidal, threat to staff... and all critical care pts) @ -No Disposition Clinical Impression: Fall, Cervical strain Disposition: HOME SELF-CARE Instructions (If sedation given, give patient instructions): Fall Prevention (ED), Cervical Strain (ED) Prescriptions: Ibuprofen [Motrin] 600 mg PO Q6HR PRN #20 tab PRN Reason: For pain Is patient prescribed a controlled substance at d/c from ED?: No Referrals: [facility],Clinic [Primary Care Provider] - 1-2 days Time of Disposition: 14:03
[2023-08-16 12:20] VITALS: BP 114/73; TEMP 97.6
--- NOTE | 2023-08-16 12:59 | CT ---
EXAMINATION TYPE: CT brain vladimir wo con DATE OF EXAM: 08/16/2023 COMPARISON: 06/13/2023 HISTORY: pain after fall CT DLP: 1620.[address] of the brain was performed. The ventricles, basal cisterns and sulci overlying the cerebral convexities demonstrate mild enlargem ent. There is no evidence for intracranial hemorrhage or sulcal effacement. There is decreased attenuatio n about the periventricular white matter and deep white matter of both cerebral hemispheres, compatib le with chronic small vessel ischemia. Echodense colloid cyst redemonstrated. No mass effects are seen. If symptoms persist consider MRI. Osseous calvarium is intact. IMPRESSION: 1. Age related atrophic and chronic small vessel ischemic change without acute intracranial process seen at this time. CT Cervical Spine: Unenhanced CT of the cervical spine was performed with bone and soft tissue window settings submitted . Coronal and sagittal reconstruction is obtained. There is normal alignment and prevertebral soft tissues. No evidence for acute cervical fracture . Scattered degenerative disc disease and spondylosis. Biapical scarring. IMPRESSION: 1. No evidence for acute fracture or subluxation of the cervical spine.
[2023-08-16 14:35] VITALS: PULSE 67; RESP 18
== END 2023-08-16 14:29 | disposition home or self-care (01) ==
LOC: EC 11:55
DX: S16.1XXA Strain of muscle, fascia and tendon at neck level, initial encounter (principal); I25.10 Atherosclerotic heart disease of native coronary artery without angina pectoris; E11.9 Type 2 diabetes mellitus without complications; E78.5 Hyperlipidemia, unspecified; M19.90 Unspecified osteoarthritis, unspecified site; F17.200 Nicotine dependence, unspecified, uncomplicated; Z86.59 Personal history of other mental and behavioral disorders; Z79.4 Long term (current) use of insulin; Z79.899 Other long term (current) drug therapy; Z79.82 Long term (current) use of aspirin; Z79.84 Long term (current) use of oral hypoglycemic drugs; I67.82 Cerebral ischemia; J98.4 Other disorders of lung; Z90.49 Acquired absence of other specified parts of digestive tract; Z95.5 Presence of coronary angioplasty implant and graft; W18.30XA Fall on same level, unspecified, initial encounter
CPT/HCPCS: 70450; 72125; 99284

== ENCOUNTER 2023-08-21 12:41 | Inpatient (IN) | payer OTHER, MEDICARE ==
[2023-08-21 13:37] LABS: Basophils % (A) 0 %; Eosinophils # (A) 0.1 k/uL (0-0.7); Eosinophils % (A) 1 %; HCT 41.3 % (39.0-53.0); Lymphocytes % (A) 10 %; MCH 31.2 pg (25.0-35.0); MCV 91.9 fL (80.0-100.0); Mean Platelet Volume 7.8; Monocytes # (A) 0.5 k/uL (0-1.0); Monocytes % (A) 5 %; Neutrophils # (A) 8.3 k/uL (1.3-7.7); Neutrophils % (A) 83 %; Platelet Count 245 k/uL (150-450); RBC 4.49 m/uL (4.30-5.90); RDW 14.8 % (11.5-15.5)
[2023-08-21 13:41] LABS: Prothrombin Time 11.1 sec (10.0-12.5)
[2023-08-21 13:46] LABS: ALT 33 U/L (4-49); AST 35 U/L (17-59); African American GFR (CKD) >90 (>60 ml/min/1.73 sqM); Albumin 4.3 g/dL (3.5-5.0); Alkaline Phosphatase 82 U/L (38-126); Anion Gap 15 mmol/L; Blood Urea Nitrogen 21 mg/dL (9-20); Calcium 9.9 mg/dL (8.4-10.2); Carbon Dioxide 16 mmol/L (22-30); Chloride 107 mmol/L (98-107); Glucose 157 mg/dL (74-99); Non-African American GFR(CKD) 84 (>60 ml/min/1.73 sqM); Sodium 138 mmol/L (137-145); Total Bilirubin 1.1 mg/dL (0.2-1.3)
--- NOTE | 2023-08-21 13:47 | XR ---
EXAMINATION TYPE: XR chest 2V DATE OF EXAM: 08/21/2023 COMPARISON: 11/06/2022 HISTORY: Shortness of breath TECHNIQUE: Frontal and lateral views of the chest are obtained. FINDINGS: Scattered senescent parenchymal changes noted. Hyperinflation compatible with COPD. No evidence for infiltrate. No evidence for atelectasis. Heart size is stable. Mediastinal structures are stable and grossly unremarkable. No evidence for hilar prominence. Degenerative changes dorsal spine. IMPRESSION: 1. No evidence for acute pulmonary disease.
--- NOTE | 2023-08-21 13:56 | ED ---
General Adult HPI - General Chief complaint: Fall Stated complaint: weakness, multiple falls, blood in urine Time Seen by Provider: 08/21/23 13:36 Source: patient, family, RN notes reviewed, old records reviewed Mode of arrival: wheelchair Limitations: no limitations - History of Present Illness Initial comments: Patient is a pleasant 83-year-old male presenting to the emergency department with increased weakness. Symptoms have progressed over the past several days to a week. Patient has had approximately 5 or 6 falls. Patient has difficulty bearing his own weight. Patient is unable to get up on his own. Patient has had dark urine. Patient has had decreased appetite and decreased oral intake. Patient does have chronic back pain. Patient states his back pain is somewhat worse than normal. - Related Data Home Medications Medication Instructions Recorded Confirmed Atorvastatin [Lipitor] 40 mg PO HS 01/01/17 08/21/23 Aspirin [Adult Low Dose Aspirin EC] 81 mg PO DAILY 05/29/18 08/21/23 Cholecalciferol [Vitamin D3 (10 400 unit PO DAILY 05/29/18 08/21/23 Mcg = 400 Iu)] methocarbamoL [Robaxin] 500 mg PO BID 04/04/22 08/21/23 metFORMIN HCL 1,000 mg PO BID 06/30/22 08/21/23 Insulin Glargine,Hum.rec.anlog 20 unit SQ DAILY 07/04/22 08/21/23 [Insulin Glargine Solostar] Folic Acid 1 mg PO DAILY 07/17/22 08/21/23 Magnesium Oxide [Mag-Ox] 250 mg PO DAILY 07/17/22 08/21/23 DULoxetine HCL [Cymbalta] 30 mg PO BID 11/02/22 08/21/23 Multivitamins, Thera [Multivitamin 1 tab PO DAILY 11/02/22 08/21/23 (formulary)] Naproxen [Naprosyn] 375 mg PO BID 11/02/22 08/21/23 Erythromycin Ophth Oint [Romycin 1 applic LEFT EYE HS 06/12/23 08/21/23 Ophth Oint] Insulin Aspart [Insulin Aspart 10 unit SQ AC-TID 06/12/23 08/21/23 Flexpen] Propranolol HCl [Inderal] 60 mg PO BID 06/12/23 08/21/23 Topiramate [Topamax] 25 mg PO BID 06/12/23 08/21/23 Lactulose [Constulose] 20 gm PO DAILY PRN 08/21/23 08/21/23 Lidocaine 5% Patch [Lidoderm] 1 patch TOPICAL DAILY PRN 08/21/23 08/21/23 Naloxone HCl [Narcan] 4 mg NASAL DIRECTED 08/21/23 08/21/23 Previous Rx's Medication Instructions Recorded Gabapentin [Neurontin] 300 mg PO TID #9 cap 11/15/22 traMADol HCl [Ultram] 50 mg PO QID #12 tab 06/14/23 Allergies Allergy/AdvReac Type Severity Reaction Status Date / Time No Known Allergies Allergy Verified 08/21/23 16:20 Review of Systems ROS Statement: Those systems with pertinent positive or pertinent negative responses have been documented in the HPI. ROS Other: All systems not noted in ROS Statement are negative. Constitutional: Denies: fever Eyes: Denies: eye pain ENT: Denies: ear pain Respiratory: Denies: dyspnea Cardiovascular: Denies: chest pain Endocrine: Reports: fatigue Gastrointestinal: Reports: constipation (Resolved). Denies: abdominal pain Musculoskeletal: Reports: as per HPI, back pain Neurological: Reports: as per HPI. Denies: headache, confusion Past Medical History Past Medical History: Coronary Artery Disease (CAD), Diabetes Mellitus, GI Bleed, Hyperlipidemia, Osteoarthritis (OA) Additional Past Medical History / Comment(s): ESSENTIAL TREMORS, GI bleed 10/2017, diverticulitis, gallstones, some loss of use of rt arm, herniated disk, spinal stenosis History of Any Multi-Drug Resistant Organisms: None Reported Past Surgical History: Cholecystectomy Additional Past Surgical History / Comment(s): 3 cardiac stents, surgery on rt arm x 3 -fx as child, left eyelid surgery Past Anesthesia/Blood Transfusion Reactions: No Reported Reaction Date of Last Stent Placement:: 1999 Past Psychological History: Anxiety, Depression, Panic Disorder, Schizophrenia Smoking Status: Current every day smoker Past Alcohol Use History: None Reported Past Drug Use History: None Reported - Past Family History Mother Family Medical History: No Reported History family Family Medical History: Coronary Artery Disease (CAD) General Exam Limitations: no limitations General appearance: alert, in no apparent distress Head exam: Present: atraumatic, normocephalic Eye exam: Present: normal appearance, PERRL, EOMI ENT exam: Present: normal oropharynx Neck exam: Present: normal inspection. Absent: tenderness Respiratory exam: Present: normal lung sounds bilaterally Cardiovascular Exam: Present: regular rate, normal rhythm GI/Abdominal exam: Present: soft. Absent: distended, tenderness Extremities exam: Present: normal inspection, full ROM. Absent: tenderness Back exam: Absent: vertebral tenderness Neurological exam: Present: alert, oriented X3, CN II-XII intact. Absent: motor sensory deficit Psychiatric exam: Present: normal affect, normal mood Skin exam: Present: normal color Course Vital Signs 08/21/23 12:51 Temperature 98.1 F Pulse Rate 118 H Respiratory 18 Rate Blood Pressure 164/95 O2 Sat by Pulse 98 Oximetry EKG Findings - EKG Results: EKG: interpreted by SANDRA (Nonspecific ST-T), sinus rhythm, normal axis, normal QRS Medical Decision Making - Medical Decision Making Was pt. sent in by a medical professional or institution (, PA, PLANNING SPECIALIST, urgent care, hospital, or usp...) When possible be specific @ -No Did you speak to anyone other than the patient for history (EMS, parent, family, police, friend...)? What history was obtained from this source @ -Family is present and helps provide history including patient being found on the ground several morning Did you review nursing and triage notes (agree or disagree)? Why? @ -I reviewed and agree with nursing and triage notes Were old charts reviewed (outside hosp., previous admission, EMS record, old EKG, old radiological studies, urgent care reports/EKG's, usp records)? Report findings @ -No old charts were reviewed Differential Diagnosis (chest pain, altered mental status, abdominal pain women, abdominal pain men, vaginal bleeding, weakness, fever, dyspnea, syncope, headache, dizziness, GI bleed, back pain, seizure, CVA, palpatations, mental health, musculoskeletal)? @ -Differential Weakness: Hypoglycemia, shock, sepsis, hyponatremia, anemia, infection, WA, ETOH, adverse medicine reaction, overdose, stroke, this is not meant to be an all-inclusive list. EKG interpreted by me (3pts min.). @ -As above X-rays interpreted by me (1pt min.). @ -Lumbar x-ray shows chronic changes without acute fracture. Chest x-ray shows no acute process. CT interpreted by me (1pt min.). @ -None done U/S interpreted by me (1pt. min.). @ -None done What testing was considered but not performed or refused? (CT, X-rays, U/S, labs)? Why? @ -None What meds were considered but not given or refused? Why? @ -None Did you discuss the management of the patient with other professionals (professionals i.e. Dr., PA, PLANNING SPECIALIST, lab, RT, psych nurse, clinical social worker, quality management coordinator, teacher, police officer booking, case picker)? Give summary @ -Case was discussed with Dr. Dodd, who will admit covering this vA patient. Was smoking cessation discussed for >3mins.? @ -No Was critical care preformed (if so, how long)? @ -No Were there social determinants of health that impacted care today? How? (Homelessness, low income, unemployed, alcoholism, drug addiction, transportation, low edu. Level, literacy, decrease access to med. care, shelter, rehab)? @ -No Was there de-escalation of care discussed even if they declined (Discuss DNR or withdrawal of care, Hospice)? DNR status @ -No What co-morbidities impacted this encounter? (DM, HTN, Smoking, COPD, CAD, Cancer, CVA, ARF, Chemo, Hep., AIDS, mental health diagnosis, sleep apnea, morbid obesity)? @ -None Was patient admitted / discharged? Hospital course, mention meds given and route, prescriptions, significant lab abnormalities, going to OR and other pertinent info. @ -Patient reevaluated. Patient updated on results and plan. Patient will be admitted. Patient will need probable placement. Patient will need further evaluation for hematuria Undiagnosed new problem with uncertain prognosis? @ -No Drug Therapy requiring intensive monitoring for toxicity (Heparin, Nitro, Insulin, Cardizem)? @ -No Were any procedures done? @ -No Diagnosis/symptom? @ -Weakness, hematuria Acute, or Chronic, or Acute on Chronic? @ -, Acute, acute Uncomplicated (without systemic symptoms) or Complicated (systemic symptoms)? @ -default Side effects of treatment? @ -No Exacerbation, Progression, or Severe Exacerbation? @ -No Poses a threat to life or bodily function? How? (Chest pain, USA, WA, pneumonia, PE, COPD, DKA, ARF, appy, cholecystitis, CVA, Diverticulitis, Homicidal, Suicidal, threat to staff... and all critical care pts) @ -No - Lab Data Result diagrams: 08/21/23 13:09 08/21/23 13:09 Lab Results 08/21/23 08/21/23 08/21/23 Range/Units 13:09 13:09 13:09 WBC 10.0 (3.8-10.6) k/uL RBC 4.49 (4.30-5.90) m/uL Hgb 14.0 (13.0-17.5) gm/dL Hct 41.3 (39.0-53.0) % MCV 91.9 (80.0-100.0) fL MCH 31.2 (25.0-35.0) pg MCHC 34.0 (31.0-37.0) g/dL RDW 14.8 (11.5-15.5) % Plt Count 245 (150-450) k/uL MPV 7.8 Neutrophils % 83 % Lymphocytes % 10 % Monocytes % 5 % Eosinophils % 1 % Basophils % 0 % Neutrophils # 8.3 H (1.3-7.7) k/uL Lymphocytes # 1.0 (1.0-4.8) k/uL Monocytes # 0.5 (0-1.0) k/uL Eosinophils # 0.1 (0-0.7) k/uL Basophils # 0.0 (0-0.2) k/uL PT 11.1 (10.0-12.5) sec INR 1.0 (<1.2) APTT 23.0 (22.0-30.0) sec Sodium 138 (137-145) mmol/L Potassium 4.0 (3.5-5.1) mmol/L Chloride 107 (98-107) mmol/L Carbon Dioxide 16 L (22-30) mmol/L Anion Gap 15 mmol/L BUN 21 H (9-20) mg/dL Creatinine 0.80 (0.66-1.25) mg/dL Est GFR (CKD-EPI)AfAm >90 (>60 ml/min/1.73 sqM) Est GFR (CKD-EPI)NonAf 84 (>60 ml/min/1.73 sqM) Glucose 157 H (74-99) mg/dL Plasma Lactic Acid Paul (0.7-2.0) mmol/L Calcium 9.9 (8.4-10.2) mg/dL Total Bilirubin 1.1 (0.2-1.3) mg/dL AST 35 (17-59) U/L ALT 33 (4-49) U/L Alkaline Phosphatase 82 (38-126) U/L Creatine Kinase (55-170) U/L Troponin I (0.000-0.034) ng/mL Total Protein 7.0 (6.3-8.2) g/dL Albumin 4.3 (3.5-5.0) g/dL Urine Color Urine Appearance (Clear) Urine pH (5.0-8.0) Ur Specific [place] (1.001-1.035) Urine Protein (Negative) Urine Glucose (UA) (Negative) Urine Ketones (Negative) Urine Blood (Negative) Urine Nitrite (Negative) Urine Bilirubin (Negative) Urine Urobilinogen (<2.0) mg/dL Ur Leukocyte Esterase (Negative) Urine RBC (0-5) /hpf Urine WBC (0-5) /hpf Urine WBC Clumps (None) /hpf Ur Squamous Epith Cells (0-4) /hpf Hyaline Casts (0-2) /lpf Urine Mucus (None) /hpf 08/21/23 08/21/23 08/21/23 Range/Units 13:09 13:09 13:09 WBC (3.8-10.6) k/uL RBC (4.30-5.90) m/uL Hgb (13.0-17.5) gm/dL Hct (39.0-53.0) % MCV (80.0-100.0) fL MCH (25.0-35.0) pg MCHC (31.0-37.0) g/dL RDW (11.5-15.5) % Plt Count (150-450) k/uL MPV Neutrophils % % Lymphocytes % % Monocytes % % Eosinophils % % Basophils % % Neutrophils # (1.3-7.7) k/uL Lymphocytes # (1.0-4.8) k/uL Monocytes # (0-1.0) k/uL Eosinophils # (0-0.7) k/uL Basophils # (0-0.2) k/uL PT (10.0-12.5) sec INR (<1.2) APTT (22.0-30.0) sec Sodium (137-145) mmol/L Potassium (3.5-5.1) mmol/L Chloride (98-107) mmol/L Carbon Dioxide (22-30) mmol/L Anion Gap mmol/L BUN (9-20) mg/dL Creatinine (0.66-1.25) mg/dL Est GFR (CKD-EPI)AfAm (>60 ml/min/1.73 sqM) Est GFR (CKD-EPI)NonAf (>60 ml/min/1.73 sqM) Glucose (74-99) mg/dL Plasma Lactic Acid Paul 1.6 (0.7-2.0) mmol/L Calcium (8.4-10.2) mg/dL Total Bilirubin (0.2-1.3) mg/dL AST (17-59) U/L ALT (4-49) U/L Alkaline Phosphatase (38-126) U/L Creatine Kinase 131 (55-170) U/L Troponin I <0.012 (0.000-0.034) ng/mL Total Protein (6.3-8.2) g/dL Albumin (3.5-5.0) g/dL Urine Color Urine Appearance (Clear) Urine pH (5.0-8.0) Ur Specific [place]ley (1.001-1.035) Urine Protein (Negative) Urine Glucose (UA) (Negative) Urine Ketones (Negative) Urine Blood (Negative) Urine Nitrite (Negative) Urine Bilirubin (Negative) Urine Urobilinogen (<2.0) mg/dL Ur Leukocyte Esterase (Negative) Urine RBC (0-5) /hpf Urine WBC (0-5) /hpf Urine WBC Clumps (None) /hpf Ur Squamous Epith Cells (0-4) /hpf Hyaline Casts (0-2) /lpf Urine Mucus (None) /hpf 08/21/ Range/Units 13:57 WBC (3.8-10.6) k/uL RBC (4.30-5.90) m/uL Hgb (13.0-17.5) gm/dL Hct (39.0-53.0) % MCV (80.0-100.0) fL MCH (25.0-35.0) pg MCHC (31.0-37.0) g/dL RDW (11.5-15.5) % Plt Count (150-450) k/uL MPV Neutrophils % % Lymphocytes % % Monocytes % % Eosinophils % % Basophils % % Neutrophils # (1.3-7.7) k/uL Lymphocytes # (1.0-4.8) k/uL Monocytes # (0-1.0) k/uL Eosinophils # (0-0.7) k/uL Basophils # (0-0.2) k/uL PT (10.0-12.5) sec INR (<1.2) APTT (22.0-30.0) sec Sodium (137-145) mmol/L Potassium (3.5-5.1) mmol/L Chloride (98-107) mmol/L Carbon Dioxide (22-30) mmol/L Anion Gap mmol/L BUN (9-20) mg/dL Creatinine (0.66-1.25) mg/dL Est GFR (CKD-EPI)AfAm (>60 ml/min/1.73 sqM) Est GFR (CKD-EPI)NonAf (>60 ml/min/1.73 sqM) Glucose (74-99) mg/dL Plasma Lactic Acid Paul (0.7-2.0) mmol/L Calcium (8.4-10.2) mg/dL Total Bilirubin (0.2-1.3) mg/dL AST (17-59) U/L ALT (4-49) U/L Alkaline Phosphatase (38-126) U/L Creatine Kinase (55-170) U/L Troponin I (0.000-0.034) ng/mL Total Protein (6.3-8.2) g/dL Albumin (3.5-5.0) g/dL Urine Color Red Urine Appearance Cloudy (Clear) Urine pH 6.0 (5.0-8.0) Ur Specific [place] >1.030 (1.001-1.035) Urine Protein 1+ (Negative) Urine Glucose (UA) Negative (Negative) Urine Ketones 1+ (Negative) Urine Blood Large (Negative) Urine Nitrite Negative (Negative) Urine Bilirubin Negative (Negative) Urine Urobilinogen <2.0 (<2.0) mg/dL Ur Leukocyte Esterase Negative (Negative) Urine RBC >182 H (0-5) /hpf Urine WBC 17 H (0-5) /hpf Urine WBC Clumps Occasional H (None) /hpf Ur Squamous Epith Cells 1 (0-4) /hpf Hyaline Casts 5 H (0-2) /lpf Urine Mucus Rare H (None) /hpf Disposition Clinical Impression: Weakness, Hematuria Disposition: ADMITTED IP TO THIS HOSP Is patient prescribed a controlled substance at d/c from ED?: No Referrals: [facility],Clinic [Primary Care Provider] - 1-2 days Time of Disposition: 16:42
[2023-08-21] MEDS ORDERED: MORPHINE SULFATE 4 MG/ML SYRINGE IVP STA (14:20)
[2023-08-21 14:39] LABS: Hyaline Casts,Urine 5 /lpf (0-2); Mucus,Urine Rare /hpf; RBC,Urine >182 /hpf (0-5); Squamous Epithelial Cell,Urine 1 /hpf (0-4); WBC,Urine 17 /hpf (0-5)
--- NOTE | 2023-08-21 14:40 | XR ---
EXAMINATION TYPE: XR lumbar spine 2 or 3V DATE OF EXAM: 08/21/2023 CLINICAL HISTORY: pain TECHNIQUE: Three views of the lumbar spine are submitted. COMPARISON: None. FINDINGS: There are 5 lumbar type vertebral bodies identified. The lumbar spine shows satisfactory alignment w ithout evidence of acute fracture or dislocation. Vertebral body heights are within normal limits. Severe multilevel degenerative disc space narrowing and spondylosis. Facet joint arthropathy. The ov erlying soft tissue appears unremarkable. IMPRESSION: No acute fracture or dislocation is seen in the lumbar spine. ICD 10 NO FRACTURE, INITIAL EVALUATION
[2023-08-21 15:22] LABS: Appearance,Urine Cloudy (Clear); Color,Urine Red; Specific Gravity,Urine >1.030 (1.001-1.035)
[2023-08-21 15:23] LABS: Bilirubin,Urine Negative (Negative); Blood,Urine Large (Negative); Glucose,Urine (UA) Negative (Negative); Ketones,Urine 1+ (Negative); Leukocyte Esterase,Urine Negative (Negative); Nitrite,Urine Negative (Negative); Protein,Urine 1+ (Negative); Urobilinogen,Urine <2.0 mg/dL (<2.0)
[2023-08-21] MEDS ORDERED: NALOXONE 0.4 MG/ML 1 ML VIAL IV PRN (16:42)
[2023-08-21] MEDS ORDERED: LIDOCAINE 5% PATCH TOPICAL PRN (17:07)
[2023-08-21] MEDS ORDERED: LACTULOSE 20 GM/30 ML CUP PO PRN (17:07)
[2023-08-21] MEDS ORDERED: DEXTROSE 50% SYRINGE 50 ML IVP PRN ×2 (17:11)
--- NOTE | 2023-08-21 17:29 | P.HPIM ---
History of Present Illness H&P Date: 08/21/23 Patient is a 83-year-old male with history of type 2 diabetes, CAD status post stents, peripheral neuropathy, chronic low back pain, hypertension, dyslipidemia presenting after multiple recent falls, and worsening lower back pain. He claims that he was in the ED last night because of worsening pain and was then sent home. He then went to his primary who referred him back to the hospital for admission. He claims that today he is been having multiple falls because of back pain as he is barely able to ambulate. He denies hitting his head. He denies any chest pain, shortness of breath. He does have some lower abdominal pain, and had one bout of emesis. His last bowel movement was about 4 days ago. He does have constipation. He denies any fevers, chills, numbness or tingling around his groin. He denies any urinary or bowel incontinence. In the ED, temperature was 98.1, pulse 118, respiratory rate 18, blood pressure 164/95, saturating at 98% on room air. EKG shows normal sinus rhythm with nonspecific ST-T wave changes mostly in the inferior leads. Chest x-ray and apparently interpreted, shows no acute process. Lumbar spine x-ray report review shows no acute fracture or dislocation. WBC 10, hemoglobin 14, bicarb 16, BUN 21, creatinine 0.8, glucose 157, troponin negative, urinalysis did show jane hematuria. Patient being admitted for debility and failure to thrive. Pertinent positives and negatives as discussed in HPI, a complete review of systems was performed and all other systems are negative. Patient seen and examined at bedside. Vital signs reviewed General: nontoxic, no distress, appears at stated age Derm: warm, dry Head: atraumatic, normocephalic, symmetric Eyes: EOMI, no lid lag, anicteric sclera, pupils equal round reactive to light ENT: Nose and ears atraumatic Neck: No thyromegaly, supple Mouth: no lip lesion, mucus membranes moist Cardiovascular: S1S2 reg, no murmur, no edema Lungs: clear to auscultation bilateral, no rhonchi, no rales, no wheeze, no accessory muscle use Abdominal: soft, nontender to palpation, no guarding, no appreciable organomegaly Ext: no gross muscle atrophy, muscle strength muscle strength 5 out of 5 in all 4 extremities, no contractures Neuro: CN II-XII grossly intact Psych: Alert, oriented, appropriate affect Assessment/Plan: Active: Hematuria Acute on chronic low back pain Frequent falls Lower extremity weakness Constipation -Patient not on any anticoagulation, can continue aspirin light of CAD -Renal ultrasound pending -Can consider urology consult if persistent -Hold NSAIDs -For acute on chronic back pain, continue home therapy along with [place] 5 every 6 hours as needed, and IV morphine 4 mg every 4 hours as needed -PT/OT -No acute fractures x-rays -On lactulose when necessary daily, senna 8.6 twice a day oral scheduled started Type 2 diabetes -Continue aspart 10 units 3 times a day, and glargine 20 units daily, sliding scale insulin, monitor for hypoglycemia -Hold metformin Chronic: CAD status post stents Peripheral neuropathy Hypertension Dyslipidemia The patient is admitted with an anticipated greater than 2 midnight stay as inpatient status for evaluation of hematuria and acute on chronic back pain. Surrogate decision-maker: Son CODE STATUS: Full code DVT prophylaxis: SCDs Anticipated discharge date: Pending clinical course Anticipated discharge place: Pending clinical course A total of 55 minutes was spent on the care of this complex patient more than 50% of the time was spent in counseling and care coordination. Past Medical History Past Medical History: Coronary Artery Disease (CAD), Diabetes Mellitus, GI Bleed, Hyperlipidemia, Osteoarthritis (OA) Additional Past Medical History / Comment(s): ESSENTIAL TREMORS, GI bleed 10/2017, diverticulitis, gallstones, some loss of use of rt arm, herniated disk, spinal stenosis History of Any Multi-Drug Resistant Organisms: None Reported Past Surgical History: Cholecystectomy Additional Past Surgical History / Comment(s): 3 cardiac stents, surgery on rt arm x 3 -fx as child, left eyelid surgery Past Anesthesia/Blood Transfusion Reactions: No Reported Reaction Date of Last Stent Placement:: 1999 Past Psychological History: Anxiety, Depression, Panic Disorder, Schizophrenia Smoking Status: Current every day smoker Past Alcohol Use History: None Reported Past Drug Use History: None Reported - Past Family History Mother Family Medical History: No Reported History family Family Medical History: Coronary Artery Disease (CAD) Medications and Allergies Home Medications Medication Instructions Recorded Confirmed Type Atorvastatin [Lipitor] 40 mg PO HS 01/01/17 08/21/23 History Aspirin [Adult Low Dose Aspirin EC] 81 mg PO DAILY 05/29/18 08/21/23 History Cholecalciferol [Vitamin D3 (10 400 unit PO DAILY 05/29/18 08/21/23 History Mcg = 400 Iu)] methocarbamoL [Robaxin] 500 mg PO BID 04/04/22 08/21/23 History metFORMIN HCL 1,000 mg PO BID 06/30/22 08/21/23 History Insulin Glargine,Hum.rec.anlog 20 unit SQ DAILY 07/04/22 08/21/23 History [Insulin Glargine Solostar] Folic Acid 1 mg PO DAILY 07/17/22 08/21/23 History Magnesium Oxide [Mag-Ox] 250 mg PO DAILY 07/17/22 08/21/23 History DULoxetine HCL [Cymbalta] 30 mg PO BID 11/02/22 08/21/23 History Multivitamins, Thera [Multivitamin 1 tab PO DAILY 11/02/22 08/21/23 History (formulary)] Naproxen [Naprosyn] 375 mg PO BID 11/02/22 08/21/23 History Gabapentin [Neurontin] 300 mg PO TID #9 cap 11/15/22 08/21/23 Rx Erythromycin Ophth Oint [Romycin 1 applic LEFT EYE HS 06/12/23 08/21/23 History Ophth Oint] Insulin Aspart [Insulin Aspart 10 unit SQ AC-TID 06/12/23 08/21/23 History Flexpen] Propranolol HCl [Inderal] 60 mg PO BID 06/12/23 08/21/23 History Topiramate [Topamax] 25 mg PO BID 06/12/23 08/21/23 History traMADol HCl [Ultram] 50 mg PO QID #12 tab 06/14/23 08/21/23 Rx Lactulose [Constulose] 20 gm PO DAILY PRN 08/21/23 08/21/23 History Lidocaine 5% Patch [Lidoderm] 1 patch TOPICAL DAILY PRN 08/21/23 08/21/23 History Naloxone HCl [Narcan] 4 mg NASAL DIRECTED 08/21/23 08/21/23 History Allergies Allergy/AdvReac Type Severity Reaction Status Date / Time No Known Allergies Allergy Verified 08/21/23 16:20 Physical Exam Vitals: Vital Signs Temp Pulse Resp BP Pulse Ox 08/21/23 12:51 98.1 F 118 H 18 164/95 98 Intake and Output 08/21/23 08/21/23 08/21/23 06:59 14:59 22:59 Other: Weight 97.522 kg Results CBC & Chem 7: 08/21/23 13:09 08/21/23 13:09 Labs: Abnormal Lab Results - Last 24 Hours (Table) 08/21/23 08/21/23 08/21/23 Range/Units 13:09 13:09 13:57 Neutrophils # 8.3 H (1.3-7.7) k/uL Carbon Dioxide 16 L (22-30) mmol/L BUN 21 H (9-20) mg/dL Glucose 157 H (74-99) mg/dL Urine RBC >182 H (0-5) /hpf Urine WBC 17 H (0-5) /hpf Urine WBC Clumps Occasional H (None) /hpf Hyaline Casts 5 H (0-2) /lpf Urine Mucus Rare H (None) /hpf
[2023-08-21 17:50] LABS: Glucose,Whole Blood 127 mg/dL (70-110)
[2023-08-21] MEDS: INSULIN ASPART (NovoLOG) 100 UNIT/ML VIAL SQ SCH ×3 (17:53→21:09)
[2023-08-21] MEDS: traMADol 50 MG TAB PO SCH ×2 (18:02→21:03)
[2023-08-21] MEDS: MORPHINE SULFATE 4 MG/ML SYRINGE IV PRN ×2 (18:03→23:11)
--- NOTE | 2023-08-21 18:23 | US ---
EXAMINATION TYPE: US kidneys/renal and bladder DATE OF EXAM: 08/21/2023 COMPARISON: NONE CLINICAL INDICATION: Male, 83 years old with history of hematuria; hematuria x 1 day EXAM MEASUREMENTS: Right Kidney: 11.8 x 5.7 x 6.0 cm Left Kidney: 12.8 x 7.5 x 5.9 cm Right Kidney: 2 cystic areas seen. Largest is in the inferior pole measuring 4.5 x 4.5 x 4.3cm Left Kidney: Dilated renal pelvis and possible mild hydronephrosis. Echogenic focus with posterior sh adowing seen in mid pole measuring 0.7 x 0.8 x 0.8cm Bladder: Echogenic area with vascularity seen on the left side of the bladder measuring 3.4 x 4.9 x 2 .3cm. It did appear to move slightly when rolled on side. Bilateral Jets seen: Yes There is no evidence for hydronephrosis at this point in time. No nephrolithiasis is seen. No paulette s are identified. The urinary bladder is anechoic. Bilateral ureteral jets are seen. IMPRESSION: 1. There is a dependent area of abnormal debris or bladder wall thickening. On at least one images t here is internal color Doppler flow. Consider direct visualization to rule out urinary bladder mass. Consider CT urogram. 2. Possible left mild hydronephrosis versus extra renal pelvis. 3. Right renal cysts 4. Left renal nonobstructing calculus.
[2023-08-21 20:56] LABS: Glucose,Whole Blood 97 mg/dL (70-110)
[2023-08-21] MEDS: GABAPENTIN 300 MG CAP PO SCH (21:03)
[2023-08-21] MEDS: TOPIRAMATE 25 MG TAB PO SCH (21:03)
[2023-08-21] MEDS: DULoxetine HCL 30 MG CAPSULE.DR PO SCH (21:03)
[2023-08-21] MEDS: methocarbamoL 500 MG TAB PO SCH (21:03)
[2023-08-21] MEDS: SENNOSIDES 8.6 MG TAB PO SCH (21:03)
[2023-08-21] MEDS: ERYTHROMYCIN 5 MG/GM OPHTH OINT 3.5 GM TUBE LEFT EYE SCH ×2 (21:04→21:10)
[2023-08-21] MEDS: ATORVASTATIN 40 MG TAB PO SCH (21:04)
[2023-08-21] MEDS: PROPRANOLOL 20 MG TAB PO SCH (21:04)
[2023-08-22 08:11] LABS: Glucose,Whole Blood 122 mg/dL (70-110)
[2023-08-22] MEDS: INSULIN ASPART (NovoLOG) 100 UNIT/ML VIAL SQ SCH ×7 (08:30→21:48)
[2023-08-22] MEDS: PROPRANOLOL 20 MG TAB PO SCH ×2 (08:32→21:47)
[2023-08-22] MEDS: TOPIRAMATE 25 MG TAB PO SCH ×2 (08:33→21:47)
[2023-08-22] MEDS: methocarbamoL 500 MG TAB PO SCH ×2 (08:33→21:46)
[2023-08-22] MEDS: MULTIVITAMINS, THERA 1 EACH TAB PO SCH (08:33)
[2023-08-22] MEDS: traMADol 50 MG TAB PO SCH ×4 (08:33→21:48)
[2023-08-22] MEDS: SENNOSIDES 8.6 MG TAB PO SCH ×2 (08:33→21:47)
[2023-08-22] MEDS: DULoxetine HCL 30 MG CAPSULE.DR PO SCH ×2 (08:34→21:46)
[2023-08-22] MEDS: INSULIN DETEMIR (LEVEMIR) 100 UNIT/ML SYR SQ SCH (08:34)
[2023-08-22] MEDS: GABAPENTIN 300 MG CAP PO SCH ×3 (08:34→21:46)
[2023-08-22] MEDS: CHOLECALCIFEROL 10 MCG (400 IU) TABLET PO SCH (08:34)
[2023-08-22] MEDS: FOLIC ACID 1 MG TAB PO SCH (08:34)
[2023-08-22] MEDS: ASPIRIN 81 MG PO SCH (08:34)
[2023-08-22 09:04] LABS: ALT 37 U/L (10-49); AST 39 U/L (14-35); Albumin 4.3 d/dL (3.8-4.9); Albumin/Globulin Ratio 2.05 Ratio (1.60-3.17); Alkaline Phosphatase 81 U/L (41-126); BUN/Creat Ratio 19.62 Ratio (12.00-20.00); Blood Urea Nitrogen 25.5 mg/dL (9.0-27.0); Carbon Dioxide 22.5 mmol/L (21.6-31.8); Chloride 104 mmol/L (96-109); Globulin 2.1 d/dL (1.6-3.3); Glucose 121 mg/dL (70-110); Potassium 3.9 mmol/L (3.5-5.5); Sodium 141 mmol/L (135-145); Total Bilirubin 0.8 mg/dL (0.3-1.2); Total Protein 6.4 d/dL (6.2-8.2)
[2023-08-22 10:21] LABS: Basophils # (A) 0.06 X 10*3/uL (0.00-0.10); Basophils % (A) 0.6 %; Eosinophils # (A) 0.13 X 10*3/uL (0.04-0.35); Eosinophils % (A) 1.3 %; HCT 40.4 % (39.6-50.0); HGB 13.3 d/dL (13.0-17.0); Lymphocytes # (A) 1.64 X 10*3/uL (0.90-5.00); Lymphocytes % (A) 16.8 %; MCH 31.1 pg (27.0-32.0); MCHC 32.9 d/dL (32.0-37.0); MCV 94.4 FL (80.0-97.0); Mean Platelet Volume 9.6 FL (9.5-12.2); Monocytes # (A) 0.82 X 10*3/uL (0.20-1.00); Monocytes % (A) 8.4 %; NRBC Per 100 WBC 0 X 10*3/uL (0.00-0.01); Neutrophils # (A) 7.06 X 10*3/uL (1.80-7.70); Neutrophils % (A) 72.1 %; Platelet Count 228 X 10*3/uL (140-440); RBC 4.28 X 10*6/uL (4.40-5.60); WBC 9.79 X 10*3/uL (4.50-10.00)
--- NOTE | 2023-08-22 11:20 | P.GSCN ---
History of Present Illness Consult date: 08/22/23 History of present illness: 83-year-old gentleman with multiple medical illness presented to the emergency room yesterday with back pain. He is discharged home from [facility] yesterday only to return with the same problem. The back bansal occured after an incidental fall. He noticed gross hematuria after that.During his evaluation an abdominal pelvic ultrasound was obtained and there was questionable thickness and questionable mass in the bladder, there was no imjury to the kidney. He appears to have a left renal stone on us. For this reason we're asked see the patient. Hematuria was identified on urinalysis. He has never had hematuria. He has no problems voiding. He may have had a uti years ago. He denies dysuria. there is no history of incontinence. He has not been on blood thinner. He is diabetic. Review of Systems All systems: negative - Constitutional Denies fever, Denies weight loss - EENT Eyes: denies blurred vision Ears, nose, mouth and throat: Denies dysphagia - Cardiovascular Denies chest pain, Denies shortness of breath - Respiratory Denies cough, Denies 7 - Gastrointestinal Reports as per HPI - Genitourinary Denies dysuria, Denies hematuria - Integumentary Denies rash, Denies unusual bruising - Neurological Denies headaches, Denies syncope - Hematologic/Lymphatic Denies easy bleeding, Denies easy bruising Past Medical History Past Medical History: Coronary Artery Disease (CAD), Diabetes Mellitus, GI Bleed, Hyperlipidemia, Osteoarthritis (OA) Additional Past Medical History / Comment(s): ESSENTIAL TREMORS, GI bleed 10/2017, diverticulitis, gallstones, some loss of use of rt arm, herniated disk, spinal stenosis History of Any Multi-Drug Resistant Organisms: None Reported Past Surgical History: Cholecystectomy Additional Past Surgical History / Comment(s): 3 cardiac stents, surgery on rt arm x 3 -fx as child, left eyelid surgery Past Anesthesia/Blood Transfusion Reactions: No Reported Reaction Date of Last Stent Placement:: 1999 Past Psychological History: Anxiety, Depression, Panic Disorder, Schizophrenia Smoking Status: Current every day smoker Past Alcohol Use History: None Reported Additional Past Alcohol Use History / Comment(s): SMOKES 1/2 PPD, SINCE AGE 20 Past Drug Use History: None Reported - Past Family History Mother Family Medical History: No Reported History family Family Medical History: Coronary Artery Disease (CAD) Medications and Allergies Home Medications Medication Instructions Recorded Confirmed Type Atorvastatin [Lipitor] 40 mg PO HS 01/01/17 08/21/23 History Aspirin [Adult Low Dose Aspirin EC] 81 mg PO DAILY 05/29/18 08/21/23 History Cholecalciferol [Vitamin D3 (10 400 unit PO DAILY 05/29/18 08/21/23 History Mcg = 400 Iu)] methocarbamoL [Robaxin] 500 mg PO BID 04/04/22 08/21/23 History metFORMIN HCL 1,000 mg PO BID 06/30/22 08/21/23 History Insulin Glargine,Hum.rec.anlog 20 unit SQ DAILY 07/04/22 08/21/23 History [Insulin Glargine Solostar] Folic Acid 1 mg PO DAILY 07/17/22 08/21/23 History Magnesium Oxide [Mag-Ox] 250 mg PO DAILY 07/17/22 08/21/23 History DULoxetine HCL [Cymbalta] 30 mg PO BID 11/02/22 08/21/23 History Multivitamins, Thera [Multivitamin 1 tab PO DAILY 11/02/22 08/21/23 History (formulary)] Naproxen [Naprosyn] 375 mg PO BID 11/02/22 08/21/23 History Gabapentin [Neurontin] 300 mg PO TID #9 cap 11/15/22 08/21/23 Rx Erythromycin Ophth Oint [Romycin 1 applic LEFT EYE HS 06/12/23 08/21/23 History Ophth Oint] Insulin Aspart [Insulin Aspart 10 unit SQ AC-TID 06/12/23 08/21/23 History Flexpen] Propranolol HCl [Inderal] 60 mg PO BID 06/12/23 08/21/23 History Topiramate [Topamax] 25 mg PO BID 06/12/23 08/21/23 History traMADol HCl [Ultram] 50 mg PO QID #12 tab 06/14/23 08/21/23 Rx Lactulose [Constulose] 20 gm PO DAILY PRN 08/21/23 08/21/23 History Lidocaine 5% Patch [Lidoderm] 1 patch TOPICAL DAILY PRN 08/21/23 08/21/23 History Naloxone HCl [Narcan] 4 mg NASAL DIRECTED 08/21/23 08/21/23 History Allergies Allergy/AdvReac Type Severity Reaction Status Date / Time No Known Allergies Allergy Verified 08/21/23 16:20 Surgical - Exam Vital Signs Temp Pulse Resp BP Pulse Ox 98.1 F 118 H 18 164/95 98 08/21/23 12:51 08/21/23 12:51 08/21/23 12:51 08/21/23 12:51 08/21/23 12:51 - General well developed, well nourished, no distress - Eyes normal ocular movement, no icteric - ENT no hearing loss, no congestion - Neck no masses, trachea midline - Respiratory normal respiratory effort, clear to auscultation - Abdomen Abdomen: soft, non tender, no guarding, no rigid, no rebound - Integumentary no rash, no abnormal pigmentation - Neurologic no disoriented, no combative - Psychiatric oriented to time, oriented to person, oriented to place, speech is normal, memory intact Results - Labs 08/22/23 05:54 08/22/23 05:54 Abnormal Lab Results - Last 24 Hours (Table) 08/21/23 08/21/23 08/21/23 Range/Units 13:09 13:09 13:57 Neutrophils # 8.3 H (1.3-7.7) k/uL Carbon Dioxide 16 L (22-30) mmol/L Anion Gap (4.00-12.00) mmol/L BUN 21 H (9-20) mg/dL Est GFR (CKD-EPI) (>=60) Glucose 157 H (74-99) mg/dL POC Glucose (mg/dL) (70-110) mg/dL Hemoglobin A1c (<=6.0) % AST (14-35) U/L Urine RBC >182 H (0-5) /hpf Urine WBC 17 H (0-5) /hpf Urine WBC Clumps Occasional H (None) /hpf Hyaline Casts 5 H (0-2) /lpf Urine Mucus Rare H (None) /hpf 08/21/23 08/22/23 08/22/23 Range/Units 17:47 05:54 05:54 Neutrophils # (1.3-7.7) k/uL Carbon Dioxide (22-30) mmol/L Anion Gap 14.50 H (4.00-12.00) mmol/L BUN (9-20) mg/dL Est GFR (CKD-EPI) 55 L (>=60) Glucose 121 H (74-99) mg/dL POC Glucose (mg/dL) 127 H (70-110) mg/dL Hemoglobin A1c 6.3 H (<=6.0) % AST 39 H (14-35) U/L Urine RBC (0-5) /hpf Urine WBC (0-5) /hpf Urine WBC Clumps (None) /hpf Hyaline Casts (0-2) /lpf Urine Mucus (None) /hpf 08/22/23 Range/Units 08:03 Neutrophils # (1.3-7.7) k/uL Carbon Dioxide (22-30) mmol/L Anion Gap (4.00-12.00) mmol/L BUN (9-20) mg/dL Est GFR (CKD-EPI) (>=60) Glucose (74-99) mg/dL POC Glucose (mg/dL) 122 H (70-110) mg/dL Hemoglobin A1c (<=6.0) % AST (14-35) U/L Urine RBC (0-5) /hpf Urine WBC (0-5) /hpf Urine WBC Clumps (None) /hpf Hyaline Casts (0-2) /lpf Urine Mucus (None) /hpf Diabetes panel 08/21/23 08/22/23 08/22/23 Range/Units 13:09 05:54 05:54 Sodium 138 141 (137-145) mmol/L Potassium 4.0 3.9 (3.5-5.1) mmol/L Chloride 107 104 (98-107) mmol/L Carbon Dioxide 16 L 22.5 (22-30) mmol/L BUN 21 H 25.5 (9-20) mg/dL Creatinine 0.80 1.3 (0.66-1.25) mg/dL Glucose 157 H 121 H (74-99) mg/dL Hemoglobin A1c 6.3 H (<=6.0) % Calcium 9.9 10.0 (8.4-10.2) mg/dL AST 35 39 H (17-59) U/L ALT 33 37 (4-49) U/L Alkaline Phosphatase 82 81 (38-126) U/L Total Protein 7.0 6.4 (6.3-8.2) g/dL Albumin 4.3 4.3 (3.5-5.0) g/dL Calcium panel 08/21/23 08/22/23 Range/Units 13:09 05:54 Calcium 9.9 10.0 (8.4-10.2) mg/dL Albumin 4.3 4.3 (3.5-5.0) g/dL Pituitary panel 08/21/23 08/22/23 Range/Units 13:09 05:54 Sodium 138 141 (137-145) mmol/L Potassium 4.0 3.9 (3.5-5.1) mmol/L Chloride 107 104 (98-107) mmol/L Carbon Dioxide 16 L 22.5 (22-30) mmol/L BUN 21 H 25.5 (9-20) mg/dL Creatinine 0.80 1.3 (0.66-1.25) mg/dL Glucose 157 H 121 H (74-99) mg/dL Calcium 9.9 10.0 (8.4-10.2) mg/dL Adrenal panel 08/21/23 08/22/23 Range/Units 13:09 05:54 Sodium 138 141 (137-145) mmol/L Potassium 4.0 3.9 (3.5-5.1) mmol/L Chloride 107 104 (98-107) mmol/L Carbon Dioxide 16 L 22.5 (22-30) mmol/L BUN 21 H 25.5 (9-20) mg/dL Creatinine 0.80 1.3 (0.66-1.25) mg/dL Glucose 157 H 121 H (74-99) mg/dL Calcium 9.9 10.0 (8.4-10.2) mg/dL Total Bilirubin 1.1 0.8 (0.2-1.3) mg/dL AST 35 39 H (17-59) U/L ALT 33 37 (4-49) U/L Alkaline Phosphatase 82 81 (38-126) U/L Total Protein 7.0 6.4 (6.3-8.2) g/dL Albumin 4.3 4.3 (3.5-5.0) g/dL - Imaging US - kidney/bladder: report reviewed, image reviewed Assessment and Plan Assessment: Impression: gross hematuria after a fall. Us showing a possible kideny stone left as well as a possible mass in the bladder. Plan: The patient will need an op cysto. I will get a kub to see if the stone can be seen.
[2023-08-22 12:18] LABS: Glucose,Whole Blood 200 mg/dL (70-110)
--- NOTE | 2023-08-22 12:46 | XR ---
EXAMINATION TYPE: XR KUB DATE OF EXAM: 08/22/2023 HISTORY: Pain Comparison: None.Single KUB is submitted for interpretation. Findings: Right renal calculi: None Visualized. Right ureteral calculi: None Visualized. Left renal calculi: None Visualized. Left ureteral calculi: None Visualized. Pelvic calcifications: None Visualized. Bowel gas pattern is unremarkable. No free air. No mass effects. Degenerative changes and scoliotic curvature lumbar spine. IMPRESSION: 1. No calculi seen.
--- NOTE | 2023-08-22 13:32 | P.PN ---
Subjective Progress Note Date: 08/22/23 Hospital Course: 83-year-old male with history of type 2 diabetes, CAD status post stents, peripheral neuropathy, chronic low back pain, hypertension, dyslipidemia presenting after multiple recent falls, and worsening lower back pain. In the ED, temperature was 98.1, pulse 118, respiratory rate 18, blood pressure 164/95, saturating at 98% on room air. EKG shows normal sinus rhythm with nonspecific ST-T wave changes mostly in the inferior leads. Chest x-ray and apparently interpreted, shows no acute process. Lumbar spine x-ray report review shows no acute fracture or dislocation. WBC 10, hemoglobin 14, bicarb 16, BUN 21, creatinine 0.8, glucose 157, troponin negative, urinalysis did show jane hematuria. Patient admitted for hematuria, and worsening lower back pain. Subjective: Patient seen and examined at bedside. No acute events overnight. He is still having low back pain. Pertinent positives and negatives as discussed above, a complete review of systems was performed and all other systems are negative. Vitals Signs Reviewed. General: nontoxic, no distress, appears at stated age Derm: warm, dry Head: atraumatic, normocephalic, symmetric Eyes: EOMI, no lid lag, anicteric sclera Mouth: no lip lesion, mucus membranes moist Cardiovascular: S1S2 reg, no murmur Lungs: CTA bilateral, no rhonchi, no rales , no accessory muscle use Abdominal: soft, nontender to palpation, no guarding, no appreciable organomegaly Ext: no gross muscle atrophy, no edema, no contractures, no tenderness to palpation of the lumbar spine Neuro: CN II-XI grossly intact, no focal neuro deficits Psych: Alert, oriented, appropriate affect Data Reviewed Today: Pertinent Labs: WBC 9.79, hemoglobin 13.3, creatinine 1.3, blood sugars range between 97-122 Imaging: Renal ultrasound shows bladder wall thickening, possible bladder mass, possible left mild hydronephrosis versus extrarenal pelvis, right renal cyst and left renal nonobstructing calculus Assessment and Plan: Active: Hematuria Acute on chronic low back pain Frequent falls Lower extremity weakness Constipation Acute kidney injury -Patient not on any anticoagulation, can continue aspirin light of CAD -Urology note reviewed, outpatient cystoscopy -KUB did not show any renal stones -Hold NSAIDs -For acute on chronic back pain, continue home therapy along with [place] 5 every 6 hours as needed, and IV morphine 4 mg every 4 hours as needed -PT/OT, patient will likely need rehab -No acute fractures x-rays -On lactulose when necessary daily, senna 8.6 twice a day oral scheduled started -Encourage oral intake, repeat BMP tomorrow Type 2 diabetes -Continue aspart 10 units 3 times a day, and glargine 20 units daily, sliding scale insulin, monitor for hypoglycemia -Hold metformin Chronic: CAD status post stents Peripheral neuropathy Hypertension Dyslipidemia DVT ppx: SCDs Code status: Full code Anticipated discharge place: Rehab Anticipated discharge time: Pending clinical course Objective - Vital Signs Vital signs: Vital Signs Temp 97.3 F L 08/22/23 13:18 Pulse 47 L 08/22/23 13:18 Resp 16 08/22/23 13:18 BP 135/77 08/22/23 13:18 Pulse Ox 96 08/22/23 13:18 FiO2 Intake & Output 08/21/23 08/22/23 08/22/23 18:59 06:59 18:59 Output Total 50 250 Balance -50 -250 Weight 97.522 kg 97.522 kg Output: Urine 50 250 Other: Voiding Method Urinal - Labs CBC & Chem 7: 08/22/23 05:54 08/22/23 05:54 Labs: Abnormal Lab Results - Last 24 Hours (Table) 08/21/23 08/21/23 08/21/23 Range/Units 13:09 13:09 13:57 RBC (4.40-5.60) X 10*6/uL RDW (11.5-14.5) % Neutrophils # 8.3 H (1.3-7.7) k/uL Carbon Dioxide 16 L (22-30) mmol/L Anion Gap (4.00-12.00) mmol/L BUN 21 H (9-20) mg/dL Est GFR (CKD-EPI) (>=60) Glucose 157 H (74-99) mg/dL POC Glucose (mg/dL) (70-110) mg/dL Hemoglobin A1c (<=6.0) % AST (14-35) U/L Urine RBC >182 H (0-5) /hpf Urine WBC 17 H (0-5) /hpf Urine WBC Clumps Occasional H (None) /hpf Hyaline Casts 5 H (0-2) /lpf Urine Mucus Rare H (None) /hpf 08/21/23 08/22/23 08/22/23 Range/Units 17:47 05:54 05:54 RBC 4.28 L (4.40-5.60) X 10*6/uL RDW 15.0 H (11.5-14.5) % Neutrophils # (1.3-7.7) k/uL Carbon Dioxide (22-30) mmol/L Anion Gap (4.00-12.00) mmol/L BUN (9-20) mg/dL Est GFR (CKD-EPI) (>=60) Glucose (74-99) mg/dL POC Glucose (mg/dL) 127 H (70-110) mg/dL Hemoglobin A1c 6.3 H (<=6.0) % AST (14-35) U/L Urine RBC (0-5) /hpf Urine WBC (0-5) /hpf Urine WBC Clumps (None) /hpf Hyaline Casts (0-2) /lpf Urine Mucus (None) /hpf 08/22/23 08/22/23 08/22/23 Range/Units 05:54 08:03 12:06 RBC (4.40-5.60) X 10*6/uL RDW (11.5-14.5) % Neutrophils # (1.3-7.7) k/uL Carbon Dioxide (22-30) mmol/L Anion Gap 14.50 H (4.00-12.00) mmol/L BUN (9-20) mg/dL Est GFR (CKD-EPI) 55 L (>=60) Glucose 121 H (74-99) mg/dL POC Glucose (mg/dL) 122 H 200 H (70-110) mg/dL Hemoglobin A1c (<=6.0) % AST 39 H (14-35) U/L Urine RBC (0-5) /hpf Urine WBC (0-5) /hpf Urine WBC Clumps (None) /hpf Hyaline Casts (0-2) /lpf Urine Mucus (None) /hpf
[2023-08-22 17:07] LABS: Glucose,Whole Blood 89 mg/dL (70-110)
[2023-08-22 20:08] LABS: Glucose,Whole Blood 156 mg/dL (70-110)
[2023-08-22] MEDS: ERYTHROMYCIN 5 MG/GM OPHTH OINT 3.5 GM TUBE LEFT EYE SCH (21:47)
[2023-08-22] MEDS: ATORVASTATIN 40 MG TAB PO SCH (21:48)
[2023-08-23 07:06] LABS: Glucose,Whole Blood 132 mg/dL (70-110)
[2023-08-23] MEDS: INSULIN ASPART (NovoLOG) 100 UNIT/ML VIAL SQ SCH ×7 (07:16→21:49)
[2023-08-23] MEDS: INSULIN DETEMIR (LEVEMIR) 100 UNIT/ML SYR SQ SCH (08:39)
[2023-08-23] MEDS: DULoxetine HCL 30 MG CAPSULE.DR PO SCH ×2 (08:40→21:55)
[2023-08-23] MEDS: GABAPENTIN 300 MG CAP PO SCH ×3 (08:40→21:56)
[2023-08-23] MEDS: MULTIVITAMINS, THERA 1 EACH TAB PO SCH (08:40)
[2023-08-23] MEDS: SENNOSIDES 8.6 MG TAB PO SCH ×2 (08:40→21:55)
[2023-08-23] MEDS: PROPRANOLOL 20 MG TAB PO SCH ×2 (08:40→21:55)
[2023-08-23] MEDS: CHOLECALCIFEROL 10 MCG (400 IU) TABLET PO SCH (08:40)
[2023-08-23] MEDS: methocarbamoL 500 MG TAB PO SCH ×2 (08:40→21:55)
[2023-08-23] MEDS: FOLIC ACID 1 MG TAB PO SCH (08:40)
[2023-08-23] MEDS: ASPIRIN 81 MG PO SCH (08:40)
[2023-08-23] MEDS: TOPIRAMATE 25 MG TAB PO SCH ×2 (08:40→21:55)
[2023-08-23] MEDS: traMADol 50 MG TAB PO SCH ×4 (08:41→21:55)
[2023-08-23 11:25] LABS: BUN/Creat Ratio 22.92 Ratio (12.00-20.00); Blood Urea Nitrogen 27.5 mg/dL (9.0-27.0); Calcium 9.7 mg/dL (8.7-10.3); Chloride 104 mmol/L (96-109); Glucose 120 mg/dL (70-110); Potassium 3.9 mmol/L (3.5-5.5); Sodium 138 mmol/L (135-145)
[2023-08-23 12:12] LABS: Glucose,Whole Blood 144 mg/dL (70-110)
[2023-08-23] MEDS: MORPHINE SULFATE 4 MG/ML SYRINGE IV PRN ×2 (14:42→22:12)
[2023-08-23 17:15] LABS: Glucose,Whole Blood 139 mg/dL (70-110)
[2023-08-23] MEDS ORDERED: MAGNESIUM CITRATE 296 ML BOTTLE PO ONE (18:41)
--- NOTE | 2023-08-23 18:44 | P.PN ---
Subjective Progress Note Date: 08/23/23 Hospital course: Patient is a very pleasant 83-year-old male with a past medical history of type 2 insulin-dependent diabetes, CAD status post stents, peripheral neuropathy, chronic low back pain, hypertension, and dyslipidemia. He presented to the emergency department on 08/21/23 after multiple recent falls at home and worsening lower back pain. In the ED, temperature was 98.1, pulse 118, respiratory rate 18, blood pressure 164/95, saturating at 98% on room air. EKG showed normal sinus rhythm with nonspecific ST-T wave changes mostly in the inferior leads. Chest x-ray negative for acute cardiopulmonary process. Lumbar spine x-ray report reviewed showing no acute fracture or dislocation. Labs completed and reviewed CBC was unremarkable with WBC 10, hemoglobin 14, and p latelet count of 245. BMP showing a low bicarb 16, elevated BUN 21 with normal creatinine 0.8, and glucose 157. Troponin negative at less than 0.0123 draws. Urinalysis did show jane hematuria with greater than 182 RBCs. Patient admitted under our services for hematuria and worsening lower back pain with consultation to urology.. Physical exam: Vital signs reviewed and stable. General: Nontoxic, no distress and appears stated age. Derm: Skin warm and dry, normal coloration for ethnicity. Head: Atraumatic, normocephalic and symmetric. Eyes: EOMs intact, no lid lag, and anicteric sclera Mouth: no lip lesions, mucus membranes moist Cardiovascular: regular rate and rhythm with normal S1S2, no murmur, positive posterior tibial pulses bilaterally, and cap refill < 2 seconds. Lungs: Respirations even, regular, and unlabored on room air. Lungs CTA bilaterally, no rhonchi, no rales, no wheezing, and no accessory muscle usage. Abdominal: soft, nontender to palpation, no guarding, no appreciable organomegaly Ext: ROM intact. No gross muscle atrophy, no edema, no contractures Neuro: Speech clear, face symmetrical and CN II-XII grossly intact with no noted focal neuro deficits Psych: Alert and oriented to person, place, time, and situation. Appropriate and pleasant affect. Assessment and Plan of Care: Hematuria Acute on chronic low back pain Frequent falls Lower extremity weakness Constipation -Patient not on any anticoagulation, can continue aspirin secondary to history of CAD -Urology note reviewed, outpatient cystoscopy -KUB did not show any renal stones -Hold NSAIDs -For acute on chronic back pain, continue home therapy along with [place] 5 every 6 hours as needed, and IV morphine 4 mg every 4 hours as needed -Order also placed for consult to pain management for evaluation and possible epidural injection -PT/OT consulted as patient will likely need rehab -Order placed for mag citrate -Encourage oral intake, repeat BMP tomorrow Type 2 insulin-dependent diabetes -Hold metformin and Continue aspart 10 units 3 times a day, and glargine 20 units daily, in addition to placement on glycemic protocol with NovoLog sliding scale insulin, monitor for hypoglycemia CAD status post stents Hypertension Hyperlipidemia -Continue daily medication regimen with aspirin 81 mg daily, atorvastatin 40 mg nightly, and propranolol 60 mg twice daily Peripheral neuropathy -Continue daily medication regimen with gabapentin 300 mg 3 times daily. Data reviewed: Vital signs reviewed. Blood pressure 122/76, heart rate 59, respiratory rate 14, temp 97.8 her neck, and SpO2 of 96% on room air. DVT prophylaxis: SCDs Anticipated discharge date: Clinical course to determine Anticipated discharge place: Clinical course to determine, will likely need placement in rehab Patient was seen independently by Nurse Pracitioner. This document was prepared using [employer] dictation software. Please allow for errors in chief deputy sheriff, while rare they do occur. Objective - Vital Signs Vital signs: Vital Signs Temp 97.8 F 08/23/23 07:00 Pulse 59 L 08/23/23 07:00 Resp 14 08/23/23 07:00 BP 122/76 08/23/23 07:00 Pulse Ox 96 08/23/23 07:00 FiO2 Intake & Output 08/22/23 08/23/23 08/23/23 18:59 06:59 18:59 Intake Total 590 Output Total 400 Balance -400 590 Intake: Oral 590 Output: Urine 400 Other: Voiding Method Urinal Urinal # Voids 1 0 # Bowel Movements 0 - Labs CBC & Chem 7: 08/22/23 05:54 08/23/23 05:54 Labs: Abnormal Lab Results - Last 24 Hours (Table) 08/22/23 08/22/23 08/22/23 Range/Units 05:54 05:54 05:54 RBC 4.28 L (4.40-5.60) X 10*6/uL RDW 15.0 H (11.5-14.5) % Anion Gap 14.50 H (4.00-12.00) mmol/L Est GFR (CKD-EPI) 55 L (>=60) Glucose 121 H (70-110) mg/dL POC Glucose (mg/dL) (70-110) mg/dL Hemoglobin A1c 6.3 H (<=6.0) % AST 39 H (14-35) U/L 08/22/23 08/22/23 08/23/23 Range/Units 12:06 20:07 07:05 RBC (4.40-5.60) X 10*6/uL RDW (11.5-14.5) % Anion Gap (4.00-12.00) mmol/L Est GFR (CKD-EPI) (>=60) Glucose (70-110) mg/dL POC Glucose (mg/dL) 200 H 156 H 132 H (70-110) mg/dL Hemoglobin A1c (<=6.0) % AST (14-35) U/L
[2023-08-23 20:14] LABS: Glucose,Whole Blood 123 mg/dL (70-110)
[2023-08-23] MEDS: ERYTHROMYCIN 5 MG/GM OPHTH OINT 3.5 GM TUBE LEFT EYE SCH (21:56)
[2023-08-23] MEDS: ATORVASTATIN 40 MG TAB PO SCH (21:56)
[2023-08-24] MEDS: MORPHINE SULFATE 4 MG/ML SYRINGE IV PRN (02:44)
[2023-08-24 07:18] LABS: Glucose,Whole Blood 121 mg/dL (70-110)
[2023-08-24] MEDS: INSULIN ASPART (NovoLOG) 100 UNIT/ML VIAL SQ SCH ×7 (07:43→21:01)
[2023-08-24] MEDS: INSULIN DETEMIR (LEVEMIR) 100 UNIT/ML SYR SQ SCH (08:21)
[2023-08-24 09:10] LABS: Magnesium 2.1 mg/dL (1.5-2.4)
[2023-08-24 09:18] LABS: ALT 44 U/L (10-49); AST 31 U/L (14-35); Albumin 3.9 d/dL (3.8-4.9); Albumin/Globulin Ratio 2.17 Ratio (1.60-3.17); Alkaline Phosphatase 74 U/L (41-126); BUN/Creat Ratio 22.08 Ratio (12.00-20.00); Blood Urea Nitrogen 28.7 mg/dL (9.0-27.0); Calcium 9.8 mg/dL (8.7-10.3); Carbon Dioxide 30.7 mmol/L (21.6-31.8); Chloride 103 mmol/L (96-109); Globulin 1.8 d/dL (1.6-3.3); Glucose 120 mg/dL (70-110); Potassium 4.3 mmol/L (3.5-5.5); Sodium 139 mmol/L (135-145); Total Bilirubin 0.4 mg/dL (0.3-1.2); Total Protein 5.7 d/dL (6.2-8.2)
[2023-08-24 09:23] LABS: HCT 37.6 % (39.6-50.0); HGB 12.6 d/dL (13.0-17.0); MCH 30.9 pg (27.0-32.0); MCHC 33.5 d/dL (32.0-37.0); MCV 92.2 FL (80.0-97.0); Mean Platelet Volume 9.7 FL (9.5-12.2); NRBC Per 100 WBC 0 X 10*3/uL (0.00-0.01); Platelet Count 235 X 10*3/uL (140-440); RBC 4.08 X 10*6/uL (4.40-5.60); RDW 14.6 % (11.5-14.5); WBC 8.66 X 10*3/uL (4.50-10.00)
[2023-08-24] MEDS: ASPIRIN 81 MG PO SCH (09:39)
[2023-08-24] MEDS: FOLIC ACID 1 MG TAB PO SCH (09:39)
[2023-08-24] MEDS: SENNOSIDES 8.6 MG TAB PO SCH ×2 (09:40→21:00)
[2023-08-24] MEDS: CHOLECALCIFEROL 10 MCG (400 IU) TABLET PO SCH (09:40)
[2023-08-24] MEDS: MULTIVITAMINS, THERA 1 EACH TAB PO SCH (09:40)
[2023-08-24] MEDS: GABAPENTIN 300 MG CAP PO SCH ×3 (09:54→21:00)
[2023-08-24] MEDS: DULoxetine HCL 30 MG CAPSULE.DR PO SCH ×2 (09:54→21:00)
[2023-08-24] MEDS: methocarbamoL 500 MG TAB PO SCH ×2 (09:54→21:00)
[2023-08-24] MEDS: traMADol 50 MG TAB PO SCH ×4 (09:54→20:58)
[2023-08-24] MEDS: PROPRANOLOL 20 MG TAB PO SCH ×2 (09:54→20:57)
[2023-08-24] MEDS: TOPIRAMATE 25 MG TAB PO SCH ×2 (09:54→21:00)
--- NOTE | 2023-08-24 09:58 | P.PAINCN ---
History of Present Illness - Reason for Consult Consult date: 08/24/23 - History of Present Illness This is a 83 years old male with a chronic history of low back pain, he was treated for his low back pain as an outpatient at the [facility], patient reported that the back pain started 8 years ago and he is on pain medication Ultram 100 mg 3-4 times a day He was recently admitted to [facility] because multiple falls and weakness, and hematuria, patient reported that intensity over the pain increased recently, and he was not able to ambulate, patient currently on multiple pain medication and he reported the current medication is helping to control his pain is currently on Neurontin 300 mg 3 times a day, Ultram 50 mg every 6 hours, [place] 5/325 every 6 hours, and morphine 4 mg every 4 hours when necessary, and both sets milligrams twice a day, and he reported the current medication helping to control his pain Past Medical History Past Medical History: Coronary Artery Disease (CAD), Diabetes Mellitus, GI Bleed, Hyperlipidemia, Osteoarthritis (OA) Additional Past Medical History / Comment(s): ESSENTIAL TREMORS, GI bleed 10/2017, diverticulitis, gallstones, some loss of use of rt arm, herniated disk, spinal stenosis History of Any Multi-Drug Resistant Organisms: None Reported Past Surgical History: Cholecystectomy Additional Past Surgical History / Comment(s): 3 cardiac stents, surgery on rt arm x 3 -fx as child, left eyelid surgery Past Anesthesia/Blood Transfusion Reactions: No Reported Reaction Date of Last Stent Placement:: 1999 Past Psychological History: Anxiety, Depression, Panic Disorder, Schizophrenia Smoking Status: Current every day smoker Past Alcohol Use History: None Reported Additional Past Alcohol Use History / Comment(s): SMOKES 1/2 PPD, SINCE AGE 20 Past Drug Use History: None Reported - Past Family History Mother Family Medical History: No Reported History family Family Medical History: Coronary Artery Disease (CAD) Medications and Allergies Home Medications Medication Instructions Recorded Confirmed Type Atorvastatin [Lipitor] 40 mg PO HS 01/01/17 08/21/23 History Aspirin [Adult Low Dose Aspirin EC] 81 mg PO DAILY 05/29/18 08/21/23 History Cholecalciferol [Vitamin D3 (10 400 unit PO DAILY 05/29/18 08/21/23 History Mcg = 400 Iu)] methocarbamoL [Robaxin] 500 mg PO BID 04/04/22 08/21/23 History metFORMIN HCL 1,000 mg PO BID 06/30/22 08/21/23 History Insulin Glargine,Hum.rec.anlog 20 unit SQ DAILY 07/04/22 08/21/23 History [Insulin Glargine Solostar] Folic Acid 1 mg PO DAILY 07/17/22 08/21/23 History Magnesium Oxide [Mag-Ox] 250 mg PO DAILY 07/17/22 08/21/23 History DULoxetine HCL [Cymbalta] 30 mg PO BID 11/02/22 08/21/23 History Multivitamins, Thera [Multivitamin 1 tab PO DAILY 11/02/22 08/21/23 History (formulary)] Naproxen [Naprosyn] 375 mg PO BID 11/02/22 08/21/23 History Gabapentin [Neurontin] 300 mg PO TID #9 cap 11/15/22 08/21/23 Rx Erythromycin Ophth Oint [Romycin 1 applic LEFT EYE HS 06/12/23 08/21/23 History Ophth Oint] Insulin Aspart [Insulin Aspart 10 unit SQ AC-TID 06/12/23 08/21/23 History Flexpen] Propranolol HCl [Inderal] 60 mg PO BID 06/12/23 08/21/23 History Topiramate [Topamax] 25 mg PO BID 06/12/23 08/21/23 History traMADol HCl [Ultram] 50 mg PO QID #12 tab 06/14/23 08/21/23 Rx Lactulose [Constulose] 20 gm PO DAILY PRN 08/21/23 08/21/23 History Lidocaine 5% Patch [Lidoderm] 1 patch TOPICAL DAILY PRN 08/21/23 08/21/23 History Naloxone HCl [Narcan] 4 mg NASAL DIRECTED 08/21/23 08/21/23 History Allergies Allergy/AdvReac Type Severity Reaction Status Date / Time No Known Allergies Allergy Verified 08/21/23 16:20 Physical Exam Vitals: Vital Signs Temp Pulse Pulse Resp BP Pulse Ox 08/24/23 09:34 54 L 08/24/23 07:31 97.5 F L 53 L 18 122/73 94 L 08/24/23 01:04 98.5 F 69 18 116/79 93 L 10/26/23 20:00 69 18 08/23/23 19:05 98.1 F 58 L 17 131/63 98 08/23/23 11:40 97.9 F 58 L 14 127/82 96 Intake and Output 08/23/23 08/24/23 08/24/23 22:59 06:59 14:59 Intake Total 240 Output Total 300 Balance -300 240 Intake: Oral 240 Output: Urine 300 Other: Voiding Method Urinal Physical Examinations : -Constitutiona : Cooperative , not in acute distress . -HEENT : nech : supple , no Lymphadenopathy , normal thyroid size . : eyes : no ptosis , no icterus, no photophobia . - neurologic : Cranial nerve II to XII intact , no focal neurological deffecit . -psychatric : alert , oriented X 3 , appropriate affect , intact judgment and insight . -Lymphatic : no Lymphadenopathy . - musculoskeltal : Lumber spine moter stegnth lower extremities ,thigh and legs 5/5 Right side , 5/5 Left side deep tendon reflexes : normal Knee Jerk , normal ankle Jerk lumber facet Loading Test =positive Right , positive Left Range of motion of the lumbar spine Flexion 30 degrees, extension 10 degrees strait leg raising test = negative bilaterally Fabere test= positive Right , and positive LT . Sever tenderness over the Sacroiliac joint on the Right , and Left sides Gaenslen test= positive right ,and positive left . Generalized tenderness over the lumbar paraspinal muscles Results CBC & Chem 7: 08/24/23 05:50 08/24/23 05:50 Labs: Abnormal Lab Results - Last 24 Hours (Table) 08/23/23 08/23/23 08/23/23 Range/Units 05:54 12:11 17:13 RBC (4.40-5.60) X 10*6/uL Hgb (13.0-17.0) d/dL Hct (39.6-50.0) % RDW (11.5-14.5) % Carbon Dioxide 19.0 L (21.6-31.8) mmol/L Anion Gap 15.00 H (4.00-12.00) mmol/L BUN 27.5 H (9.0-27.0) mg/dL Est GFR (CKD-EPI) (>=60) BUN/Creatinine Ratio 22.92 H (12.00-20.00) Ratio Glucose 120 H (70-110) mg/dL POC Glucose (mg/dL) 144 H 139 H (70-110) mg/dL Total Protein (6.2-8.2) d/dL 08/23/23 08/24/23 08/24/23 Range/Units 20:11 05:50 05:50 RBC 4.08 L (4.40-5.60) X 10*6/uL Hgb 12.6 L (13.0-17.0) d/dL Hct 37.6 L (39.6-50.0) % RDW 14.6 H (11.5-14.5) % Carbon Dioxide (21.6-31.8) mmol/L Anion Gap (4.00-12.00) mmol/L BUN 28.7 H (9.0-27.0) mg/dL Est GFR (CKD-EPI) 55 L (>=60) BUN/Creatinine Ratio 22.08 H (12.00-20.00) Ratio Glucose 120 H (70-110) mg/dL POC Glucose (mg/dL) 123 H (70-110) mg/dL Total Protein 5.7 L (6.2-8.2) d/dL 08/24/23 Range/Units 07:17 RBC (4.40-5.60) X 10*6/uL Hgb (13.0-17.0) d/dL Hct (39.6-50.0) % RDW (11.5-14.5) % Carbon Dioxide (21.6-31.8) mmol/L Anion Gap (4.00-12.00) mmol/L BUN (9.0-27.0) mg/dL Est GFR (CKD-EPI) (>=60) BUN/Creatinine Ratio (12.00-20.00) Ratio Glucose (70-110) mg/dL POC Glucose (mg/dL) 121 H (70-110) mg/dL Total Protein (6.2-8.2) d/dL Comments: X-ray of the lumbar spine= lumbar degenerative disc disease, lumbar spondylosis Assessment and Plan Plan: Assessment and plan=1-acute on chronic low back pain, 2-lumbar degenerative disc disease. 3-lumbar spondylosis with lumbar facet arthropathy. 4-myofascial pain syndrome lumbar paraspinal muscles. 5-hematuria. Command to continue current medication Robaxin 50 0 mg twice a day and Neurontin 300 mg 3 times a day, Ultram 50 mg every 6 hours, [place] 5/325 every 6 hours, patient could benefit from Lidoderm patch 5% 12 hours on 12 hours off, to be applied to the lumbar area everyday , patient could benefit from physical therapy and patient can follow-up, in the pain clinic as an outpatient patient will be good candidate to have medial branch block and possible RFA, this can be done as an outpatient, admission patient was having multiple falling episodes, but during the exam today showed that patient had full motor strength in the lower extremity there is no weakness in the lower extremity Time with Patient: Less than 30 PQRS Measure Charge Sheet Pain Comment: see MAR for pain assessment - scheduled Ultram recently given PQRS Narrative: Smoking Status Current every day smoker Blood Pressure [Left Arm] 122/73 Blood Pressure 138/73 Pain Intensity [Back] 7 Pain Intensity 9 Pain Scale Used Numeric (1 - 10) Scale Used Numeric (1 - 10) Hx Alcohol Use (MH) No Home Medications: Ambulatory Orders Atorvastatin [Lipitor] 40 mg PO HS 01/01/17 Aspirin [Adult Low Dose Aspirin EC] 81 mg PO DAILY 05/29/18 Cholecalciferol [Vitamin D3 (10 Mcg = 400 Iu)] 400 unit PO DAILY 05/29/18 methocarbamoL [Robaxin] 500 mg PO BID 04/04/22 metFORMIN HCL 1,000 mg PO BID 06/30/22 Insulin Glargine,Hum.rec.anlog [Insulin Glargine Solostar] 20 unit SQ DAILY 07/04/22 Folic Acid 1 mg PO DAILY 07/17/22 Magnesium Oxide [Mag-Ox] 250 mg PO DAILY 07/17/22 DULoxetine HCL [Cymbalta] 30 mg PO BID 11/02/22 Multivitamins, Thera [Multivitamin (formulary)] 1 tab PO DAILY 11/02/22 Naproxen [Naprosyn] 375 mg PO BID 11/02/22 Gabapentin [Neurontin] 300 mg PO TID #9 cap 11/15/22 Erythromycin Ophth Oint [Romycin Ophth Oint] 1 applic LEFT EYE HS 06/12/23 Insulin Aspart [Insulin Aspart Flexpen] 10 unit SQ AC-TID 06/12/23 Propranolol HCl [Inderal] 60 mg PO BID 06/12/23 Topiramate [Topamax] 25 mg PO BID 06/12/23 traMADol HCl [Ultram] 50 mg PO QID #12 tab 06/14/23 Lactulose [Constulose] 20 gm PO DAILY PRN 08/21/23 Lidocaine 5% Patch [Lidoderm] 1 patch TOPICAL DAILY PRN 08/21/23 Naloxone HCl [Narcan] 4 mg NASAL DIRECTED 08/21/23
[2023-08-24] MEDS: LIDOCAINE 5% PATCH TOPICAL SCH (10:07)
[2023-08-24 12:15] LABS: Glucose,Whole Blood 132 mg/dL (70-110)
[2023-08-24 17:16] LABS: Glucose,Whole Blood 153 mg/dL (70-110)
--- NOTE | 2023-08-24 18:58 | P.PN ---
Subjective Progress Note Date: 08/24/23 Hospital course: Patient is a very pleasant 83-year-old male with a past medical history of type 2 insulin-dependent diabetes, CAD status post stents, peripheral neuropathy, chronic low back pain, hypertension, and dyslipidemia. He presented to the emergency department on 08/21/23 after multiple recent falls at home and worsening lower back pain. In the ED, temperature was 98.1, pulse 118, respiratory rate 18, blood pressure 164/95, saturating at 98% on room air. EKG showed normal sinus rhythm with nonspecific ST-T wave changes mostly in the inferior leads. Chest x-ray negative for acute cardiopulmonary process. Lumbar spine x-ray report reviewed showing no acute fracture or dislocation. Labs completed and reviewed CBC was unremarkable with WBC 10, hemoglobin 14, and p latelet count of 245. BMP showing a low bicarb 16, elevated BUN 21 with normal creatinine 0.8, and glucose 157. Troponin negative at less than 0.0123 draws. Urinalysis did show jane hematuria with greater than 182 RBCs. Patient admitted under our services for hematuria and worsening lower back pain with consultation to urology.. Physical exam: Vital signs reviewed and stable. General: Nontoxic, no distress and appears stated age. Derm: Skin warm and dry, normal coloration for ethnicity. Head: Atraumatic, normocephalic and symmetric. Eyes: EOMs intact, no lid lag, and anicteric sclera Mouth: no lip lesions, mucus membranes moist Cardiovascular: regular rate and rhythm with normal S1S2, no murmur, positive posterior tibial pulses bilaterally, and cap refill < 2 seconds. Lungs: Respirations even, regular, and unlabored on room air. Lungs CTA bilaterally, no rhonchi, no rales, no wheezing, and no accessory muscle usage. Abdominal: soft, nontender to palpation, no guarding, no appreciable organomegaly Ext: ROM intact. No gross muscle atrophy, no edema, no contractures Neuro: Speech clear, face symmetrical and CN II-XII grossly intact with no noted focal neuro deficits Psych: Alert and oriented to person, place, time, and situation. Appropriate and pleasant affect. Assessment and Plan of Care: Hematuria Acute on chronic low back pain Frequent falls Lower extremity weakness Constipation -Patient not on any anticoagulation, can continue aspirin secondary to history of CAD -Urology note reviewed, outpatient cystoscopy -KUB did not show any renal stones -Hold NSAIDs -For acute on chronic back pain, continue home therapy along with [place] 5 every 6 hours as needed, and IV morphine 4 mg every 4 hours as needed -Order also placed for consult to pain management for evaluation and possible epidural injection -PT/OT consulted as patient will likely need rehab -Order placed for mag citrate -Encourage oral intake, repeat BMP tomorrow Type 2 insulin-dependent diabetes -Hold metformin and Continue aspart 10 units 3 times a day, and glargine 20 units daily, in addition to placement on glycemic protocol with NovoLog sliding scale insulin, monitor for hypoglycemia CAD status post stents Hypertension Hyperlipidemia -Continue daily medication regimen with aspirin 81 mg daily, atorvastatin 40 mg nightly, and propranolol 60 mg twice daily Peripheral neuropathy -Continue daily medication regimen with gabapentin 300 mg 3 times daily. Data reviewed: Vital signs reviewed. Blood pressure 122/73, heart rate 53, respiratory rate 18, temp 97.5 her neck, and SpO2 of 94% on room air. DVT prophylaxis: SCDs Anticipated discharge date: pending insurance authorization Anticipated discharge place: shelter facility Patient was seen independently by Nurse Pracitioner. This document was prepared using [employer] dictation software. Please allow for errors in sandwich artist, while rare they do occur. Objective - Vital Signs Vital signs: Vital Signs Temp 97.5 F L 08/24/23 07:31 Pulse 53 L 08/24/23 07:31 Resp 18 08/24/23 07:31 BP 122/73 08/24/23 07:31 Pulse Ox 94 L 08/24/23 07:31 FiO2 Intake & Output 08/23/23 08/24/23 08/24/23 18:59 06:59 18:59 Intake Total 240 Output Total 200 100 Balance -200 -100 240 Intake: Oral 240 Output: Urine 200 100 Other: Voiding Method Urinal Urinal - Labs CBC & Chem 7: 08/24/23 05:50 08/24/23 05:50 Labs: Abnormal Lab Results - Last 24 Hours (Table) 08/23/23 08/23/23 08/23/23 Range/Units 05:54 12:11 17:13 Carbon Dioxide 19.0 L (21.6-31.8) mmol/L Anion Gap 15.00 H (4.00-12.00) mmol/L BUN 27.5 H (9.0-27.0) mg/dL BUN/Creatinine Ratio 22.92 H (12.00-20.00) Ratio Glucose 120 H (70-110) mg/dL POC Glucose (mg/dL) 144 H 139 H (70-110) mg/dL 08/23/23 08/24/23 Range/Units 20:11 07:17 Carbon Dioxide (21.6-31.8) mmol/L Anion Gap (4.00-12.00) mmol/L BUN (9.0-27.0) mg/dL BUN/Creatinine Ratio (12.00-20.00) Ratio Glucose (70-110) mg/dL POC Glucose (mg/dL) 123 H 121 H (70-110) mg/dL
[2023-08-24 20:13] LABS: Glucose,Whole Blood 185 mg/dL (70-110)
[2023-08-24] MEDS: ATORVASTATIN 40 MG TAB PO SCH (21:00)
[2023-08-24] MEDS: ERYTHROMYCIN 5 MG/GM OPHTH OINT 3.5 GM TUBE LEFT EYE SCH (21:01)
[2023-08-24] MEDS: HYDROcodone/APAP 5-325MG 1 EACH TAB PO PRN (23:30)
[2023-08-25 06:24] LABS: Glucose,Whole Blood 202 mg/dL (70-110)
[2023-08-25 07:18] LABS: Glucose,Whole Blood 165 mg/dL (70-110)
[2023-08-25] MEDS: TOPIRAMATE 25 MG TAB PO SCH ×2 (08:38→21:55)
[2023-08-25] MEDS: CHOLECALCIFEROL 10 MCG (400 IU) TABLET PO SCH (08:38)
[2023-08-25] MEDS: LIDOCAINE 5% PATCH TOPICAL SCH (08:38)
[2023-08-25] MEDS: methocarbamoL 500 MG TAB PO SCH ×2 (08:38→21:55)
[2023-08-25] MEDS: INSULIN DETEMIR (LEVEMIR) 100 UNIT/ML SYR SQ SCH (08:40)
[2023-08-25] MEDS: PROPRANOLOL 20 MG TAB PO SCH ×2 (08:40→21:55)
[2023-08-25] MEDS: MULTIVITAMINS, THERA 1 EACH TAB PO SCH (08:41)
[2023-08-25] MEDS: SENNOSIDES 8.6 MG TAB PO SCH ×2 (08:41→21:56)
[2023-08-25] MEDS: DULoxetine HCL 30 MG CAPSULE.DR PO SCH ×2 (08:41→21:55)
[2023-08-25] MEDS: GABAPENTIN 300 MG CAP PO SCH ×3 (08:41→21:55)
[2023-08-25] MEDS: FOLIC ACID 1 MG TAB PO SCH (08:41)
[2023-08-25] MEDS: traMADol 50 MG TAB PO SCH ×4 (08:41→22:01)
[2023-08-25] MEDS: INSULIN ASPART (NovoLOG) 100 UNIT/ML VIAL SQ SCH ×7 (08:41→21:53)
[2023-08-25] MEDS: ASPIRIN 81 MG PO SCH (08:42)
[2023-08-25 11:55] LABS: Glucose,Whole Blood 133 mg/dL (70-110)
--- NOTE | 2023-08-25 15:27 | P.PN ---
Subjective Progress Note Date: 08/25/23 Hospital course: Patient is a very pleasant 83-year-old male with a past medical history of type 2 insulin-dependent diabetes, CAD status post stents, peripheral neuropathy, chronic low back pain, hypertension, and dyslipidemia. He presented to the emergency department on 08/21/23 after multiple recent falls at home and worsening lower back pain. In the ED, temperature was 98.1, pulse 118, respiratory rate 18, blood pressure 164/95, saturating at 98% on room air. EKG showed normal sinus rhythm with nonspecific ST-T wave changes mostly in the inferior leads. Chest x-ray negative for acute cardiopulmonary process. Lumbar spine x-ray report reviewed showing no acute fracture or dislocation. Labs completed and reviewed CBC was unremarkable with WBC 10, hemoglobin 14, and p latelet count of 245. BMP showing a low bicarb 16, elevated BUN 21 with normal creatinine 0.8, and glucose 157. Troponin negative at less than 0.0123 draws. Urinalysis did show jane hematuria with greater than 182 RBCs. Patient admitted under our services for hematuria and worsening lower back pain with consultation to urology.. Physical exam: Vital signs reviewed and stable. General: Nontoxic, no distress and appears stated age. Derm: Skin warm and dry, normal coloration for ethnicity. Head: Atraumatic, normocephalic and symmetric. Eyes: EOMs intact, no lid lag, and anicteric sclera Mouth: no lip lesions, mucus membranes moist Cardiovascular: regular rate and rhythm with normal S1S2, no murmur, positive posterior tibial pulses bilaterally, and cap refill < 2 seconds. Lungs: Respirations even, regular, and unlabored on room air. Lungs CTA bilaterally, no rhonchi, no rales, no wheezing, and no accessory muscle usage. Abdominal: soft, nontender to palpation, no guarding, no appreciable organomegaly Ext: ROM intact. No gross muscle atrophy, no edema, no contractures Neuro: Speech clear, face symmetrical and CN II-XII grossly intact with no noted focal neuro deficits Psych: Alert and oriented to person, place, time, and situation. Appropriate and pleasant affect. Assessment and Plan of Care: Hematuria Acute on chronic low back pain Frequent falls Lower extremity weakness Constipation, resolved -Patient not on any anticoagulation, can continue aspirin secondary to history of CAD -Urology note reviewed, outpatient cystoscopy -KUB did not show any renal stones -Hold NSAIDs -For acute on chronic back pain, continue home therapy along with [place] 5 every 6 hours as needed, and IV morphine 4 mg every 4 hours as needed -Order also placed for consult to pain management for evaluation and possible epidural injection -PT/OT consulted as patient will likely need rehab -Encourage oral intake, repeat BMP tomorrow Type 2 insulin-dependent diabetes -Continue to hold metformin and Continue aspart 10 units 3 times a day, and glargine 20 units daily, in addition to placement on glycemic protocol with NovoLog sliding scale insulin, monitor for hypoglycemia CAD status post stents Hypertension Hyperlipidemia -Continue daily medication regimen with aspirin 81 mg daily, atorvastatin 40 mg nightly, and propranolol 60 mg twice daily Peripheral neuropathy -Continue daily medication regimen with gabapentin 300 mg 3 times daily. Data reviewed: Vital signs reviewed. Blood pressure 143/74, heart rate 51, respiratory rate 16, temp 96.5F, SpO2 of 95% on room air. DVT prophylaxis: SCDs Anticipated discharge date: pending insurance authorization Anticipated discharge place: intermediate facility Patient was seen independently by Nurse Pracitioner. This document was prepared using [employer] dictation software. Please allow for errors in [employer]ler, while rare they do occur. Objective - Vital Signs Vital signs: Vital Signs Temp 96.5 F L 08/25/23 07:20 Pulse 51 L 08/25/23 07:20 Resp 16 08/25/23 07:20 BP 143/74 08/25/23 07:20 Pulse Ox 95 08/25/23 07:20 FiO2 Intake & Output 08/24/23 08/25/23 08/25/23 18:59 06:59 18:59 Intake Total 240 Output Total 300 500 Balance -60 -500 Intake: Oral 240 Output: Urine 300 500 Other: Voiding Method Urinal Urinal # Voids 2 2 # Bowel Movements 1 - Labs CBC & Chem 7: 08/24/23 05:50 08/24/23 05:50 Labs: Abnormal Lab Results - Last 24 Hours (Table) 08/24/23 08/24/23 08/24/23 Range/Units 05:50 05:50 12:14 RBC 4.08 L (4.40-5.60) X 10*6/uL Hgb 12.6 L (13.0-17.0) d/dL Hct 37.6 L (39.6-50.0) % RDW 14.6 H (11.5-14.5) % BUN 28.7 H (9.0-27.0) mg/dL Est GFR (CKD-EPI) 55 L (>=60) BUN/Creatinine Ratio 22.08 H (12.00-20.00) Ratio Glucose 120 H (70-110) mg/dL POC Glucose (mg/dL) 132 H (70-110) mg/dL Total Protein 5.7 L (6.2-8.2) d/dL 08/24/23 08/24/23 08/25/23 Range/Units 17:15 20:11 06:23 RBC (4.40-5.60) X 10*6/uL Hgb (13.0-17.0) d/dL Hct (39.6-50.0) % RDW (11.5-14.5) % BUN (9.0-27.0) mg/dL Est GFR (CKD-EPI) (>=60) BUN/Creatinine Ratio (12.00-20.00) Ratio Glucose (70-110) mg/dL POC Glucose (mg/dL) 153 H 185 H 202 H (70-110) mg/dL Total Protein (6.2-8.2) d/dL 08/25/23 Range/Units 07:17 RBC (4.40-5.60) X 10*6/uL Hgb (13.0-17.0) d/dL Hct (39.6-50.0) % RDW (11.5-14.5) % BUN (9.0-27.0) mg/dL Est GFR (CKD-EPI) (>=60) BUN/Creatinine Ratio (12.00-20.00) Ratio Glucose (70-110) mg/dL POC Glucose (mg/dL) 165 H (70-110) mg/dL Total Protein (6.2-8.2) d/dL
[2023-08-25 17:19] LABS: Glucose,Whole Blood 133 mg/dL (70-110)
[2023-08-25 20:17] LABS: Glucose,Whole Blood 151 mg/dL (70-110)
[2023-08-25] MEDS: ATORVASTATIN 40 MG TAB PO SCH (21:55)
[2023-08-25] MEDS: ERYTHROMYCIN 5 MG/GM OPHTH OINT 3.5 GM TUBE LEFT EYE SCH (21:56)
[2023-08-26] MEDS: MORPHINE SULFATE 4 MG/ML SYRINGE IV PRN ×2 (00:26→21:41)
[2023-08-26] MEDS: HYDROcodone/APAP 5-325MG 1 EACH TAB PO PRN (04:37)
[2023-08-26 07:35] LABS: Glucose,Whole Blood 174 mg/dL (70-110)
[2023-08-26 08:36] LABS: HCT 40.9 % (39.0-53.0); HGB 13.4 gm/dL (13.0-17.5); MCH 31.4 pg (25.0-35.0); MCHC 32.8 g/dL (31.0-37.0); MCV 95.5 fL (80.0-100.0); Mean Platelet Volume 7.4; Platelet Count 290 k/uL (150-450); RBC 4.29 m/uL (4.30-5.90); RDW 14.7 % (11.5-15.5); WBC 9.1 k/uL (3.8-10.6)
[2023-08-26] MEDS: LIDOCAINE 5% PATCH TOPICAL SCH (08:56)
[2023-08-26] MEDS: methocarbamoL 500 MG TAB PO SCH ×2 (08:57→21:37)
[2023-08-26] MEDS: TOPIRAMATE 25 MG TAB PO SCH ×2 (08:57→21:37)
[2023-08-26] MEDS: INSULIN ASPART (NovoLOG) 100 UNIT/ML VIAL SQ SCH ×7 (08:57→21:37)
[2023-08-26] MEDS: INSULIN DETEMIR (LEVEMIR) 100 UNIT/ML SYR SQ SCH (08:57)
[2023-08-26] MEDS: MULTIVITAMINS, THERA 1 EACH TAB PO SCH (08:58)
[2023-08-26] MEDS: PROPRANOLOL 20 MG TAB PO SCH ×2 (08:58→21:37)
[2023-08-26] MEDS: DULoxetine HCL 30 MG CAPSULE.DR PO SCH ×2 (08:58→21:37)
[2023-08-26] MEDS: ASPIRIN 81 MG PO SCH (08:58)
[2023-08-26] MEDS: FOLIC ACID 1 MG TAB PO SCH (08:58)
[2023-08-26] MEDS: CHOLECALCIFEROL 10 MCG (400 IU) TABLET PO SCH (08:58)
[2023-08-26] MEDS: SENNOSIDES 8.6 MG TAB PO SCH ×2 (08:58→21:38)
[2023-08-26] MEDS: traMADol 50 MG TAB PO SCH ×4 (08:58→21:37)
[2023-08-26] MEDS: GABAPENTIN 300 MG CAP PO SCH ×3 (08:58→21:37)
[2023-08-26 09:08] LABS: ALT 47 U/L (4-49); AST 33 U/L (17-59); African American GFR (CKD) 86 (>60 ml/min/1.73 sqM); Albumin 3.8 g/dL (3.5-5.0); Albumin/Globulin Ratio 1.5; Alkaline Phosphatase 70 U/L (38-126); Anion Gap 12 mmol/L; Blood Urea Nitrogen 26 mg/dL (9-20); Calcium 9.8 mg/dL (8.4-10.2); Carbon Dioxide 25 mmol/L (22-30); Chloride 101 mmol/L (98-107); Globulin 2.5 g/dL; Glucose 164 mg/dL (74-99); Non-African American GFR(CKD) 74 (>60 ml/min/1.73 sqM); Potassium 4.8 mmol/L (3.5-5.1); Sodium 138 mmol/L (137-145); Total Bilirubin 0.5 mg/dL (0.2-1.3); Total Protein 6.3 g/dL (6.3-8.2)
[2023-08-26 12:13] LABS: Glucose,Whole Blood 172 mg/dL (70-110)
[2023-08-26 17:06] LABS: Glucose,Whole Blood 141 mg/dL (70-110)
--- NOTE | 2023-08-26 17:33 | P.PN ---
Subjective Progress Note Date: 08/26/23 Hospital course: Patient is a very pleasant 83-year-old male with a past medical history of type 2 insulin-dependent diabetes, CAD status post stents, peripheral neuropathy, chronic low back pain, hypertension, and dyslipidemia. He presented to the emergency department on 08/21/23 after multiple recent falls at home and worsening lower back pain. In the ED, temperature was 98.1, pulse 118, respiratory rate 18, blood pressure 164/95, saturating at 98% on room air. EKG showed normal sinus rhythm with nonspecific ST-T wave changes mostly in the inferior leads. Chest x-ray negative for acute cardiopulmonary process. Lumbar spine x-ray report reviewed showing no acute fracture or dislocation. Labs completed and reviewed CBC was unremarkable with WBC 10, hemoglobin 14, and p latelet count of 245. BMP showing a low bicarb 16, elevated BUN 21 with normal creatinine 0.8, and glucose 157. Troponin negative at less than 0.0123 draws. Urinalysis did show jane hematuria with greater than 182 RBCs. Patient admitted under our services for hematuria and worsening lower back pain with consultation to urology.. Physical exam: Vital signs reviewed and stable. General: Nontoxic, no distress and appears stated age. Derm: Skin warm and dry, normal coloration for ethnicity. Head: Atraumatic, normocephalic and symmetric. Eyes: EOMs intact, no lid lag, and anicteric sclera Mouth: no lip lesions, mucus membranes moist Cardiovascular: regular rate and rhythm with normal S1S2, no murmur, positive posterior tibial pulses bilaterally, and cap refill < 2 seconds. Lungs: Respirations even, regular, and unlabored on room air. Lungs CTA bilaterally, no rhonchi, no rales, no wheezing, and no accessory muscle usage. Abdominal: soft, nontender to palpation, no guarding, no appreciable organomegaly Ext: ROM intact. No gross muscle atrophy, no edema, no contractures Neuro: Speech clear, face symmetrical and CN II-XII grossly intact with no noted focal neuro deficits Psych: Alert and oriented to person, place, time, and situation. Appropriate and pleasant affect. Assessment and Plan of Care: Physical deconditioning and weakness secondary to uncontrolled back pain resulting in inability to independently perform necessary ADLs Acute on chronic low back pain Hematuria, improving Frequent falls Lower extremity weakness Constipation, resolved -Patient not on any anticoagulation, can continue aspirin secondary to history of CAD -Urology note reviewed, urologist clearing patient from inpatient perspective recommending follow-up in office for scheduling of outpatient cystoscopy -Pain management evaluated patient recommending adding on lidocaine patch, physical therapy, and outpatient follow-up in pain clinic for evaluation of medial branch block and possible RFA -KUB did not show any renal stones -Continue to Hold NSAIDs -For acute on chronic back pain, continue home therapy along with [place] 5 every 6 hours as needed, and IV morphine 4 mg every 4 hours as needed -PT/OT evaluated recommending assisted facility for rehab upon discharge. -Encourage oral intake, repeat BMP tomorrow Type 2 insulin-dependent diabetes -Continue to hold metformin and Continue aspart 10 units 3 times a day, and glargine 20 units daily, in addition to placement on glycemic protocol with NovoLog sliding scale insulin, monitor for hypoglycemia CAD status post stents Hypertension Hyperlipidemia -Continue daily medication regimen with aspirin 81 mg daily, atorvastatin 40 mg nightly, and propranolol 60 mg twice daily Peripheral neuropathy -Continue daily medication regimen with gabapentin 300 mg 3 times daily. Data reviewed: Vital signs reviewed. Blood pressure 115/73, heart rate 65, respiratory rate 17, temp 98.1F, and SpO2 of 97% on room air. Morning labs reviewed and stable. CBC showing stable WBC count 9.1, hemoglobin 13.4, and platelet count of 290. BMP was unremarkable with the exception of slightly elevated BUN 26 otherwise normal findings. Close 164. Liver profile unremarkable. DVT prophylaxis: SCDs Anticipated discharge date: Patient is medically stable for discharge at this time we are currently awaiting insurance authorization Anticipated discharge place: assisted facility Patient was seen independently by Nurse Pracitioner. This document was prepared using [employer] dictation software. Please allow for errors in tankage grinder, while rare they do occur. Objective - Vital Signs Vital signs: Vital Signs Temp 98.1 F 08/26/23 07:35 Pulse 65 08/26/23 07:35 Resp 17 08/26/23 07:35 BP 115/73 08/26/23 07:35 Pulse Ox 97 08/26/23 07:35 FiO2 Intake & Output 08/25/23 08/26/23 08/26/23 18:59 06:59 18:59 Output Total 600 400 Balance -600 -400 Output: Urine 600 400 Other: Voiding Method Urinal Urinal # Voids 5 5 1 # Bowel Movements 2 2 - Labs CBC & Chem 7: 08/26/23 07:09 08/26/23 07:09 Labs: Abnormal Lab Results - Last 24 Hours (Table) 08/25/23 08/25/23 08/25/23 Range/Units 11:54 17:17 20:14 RBC (4.30-5.90) m/uL BUN (9-20) mg/dL Glucose (74-99) mg/dL POC Glucose (mg/dL) 133 H 133 H 151 H (70-110) mg/dL 08/26/23 08/26/23 08/26/23 Range/Units 07:09 07:09 07:34 RBC 4.29 L (4.30-5.90) m/uL BUN 26 H (9-20) mg/dL Glucose 164 H (74-99) mg/dL POC Glucose (mg/dL) 174 H (70-110) mg/dL
[2023-08-26 20:14] LABS: Glucose,Whole Blood 171 mg/dL (70-110)
[2023-08-26] MEDS: ATORVASTATIN 40 MG TAB PO SCH (21:37)
[2023-08-26] MEDS: ERYTHROMYCIN 5 MG/GM OPHTH OINT 3.5 GM TUBE LEFT EYE SCH (21:41)
[2023-08-27 07:50] LABS: Glucose,Whole Blood 109 mg/dL (70-110)
[2023-08-27] MEDS: INSULIN ASPART (NovoLOG) 100 UNIT/ML VIAL SQ SCH ×4 (08:37→13:10)
[2023-08-27] MEDS: traMADol 50 MG TAB PO SCH ×2 (08:38→13:09)
[2023-08-27] MEDS: DULoxetine HCL 30 MG CAPSULE.DR PO SCH (08:38)
[2023-08-27] MEDS: ASPIRIN 81 MG PO SCH (08:38)
[2023-08-27] MEDS: MULTIVITAMINS, THERA 1 EACH TAB PO SCH (08:38)
[2023-08-27] MEDS: GABAPENTIN 300 MG CAP PO SCH (08:38)
[2023-08-27] MEDS: INSULIN DETEMIR (LEVEMIR) 100 UNIT/ML SYR SQ SCH (08:39)
[2023-08-27] MEDS: SENNOSIDES 8.6 MG TAB PO SCH (08:39)
[2023-08-27] MEDS: PROPRANOLOL 20 MG TAB PO SCH (08:39)
[2023-08-27] MEDS: methocarbamoL 500 MG TAB PO SCH (08:39)
[2023-08-27] MEDS: TOPIRAMATE 25 MG TAB PO SCH (08:39)
[2023-08-27] MEDS: FOLIC ACID 1 MG TAB PO SCH (08:39)
[2023-08-27] MEDS: CHOLECALCIFEROL 10 MCG (400 IU) TABLET PO SCH (08:39)
[2023-08-27] MEDS ORDERED: LIDOCAINE 5% PATCH TOPICAL SCH (09:00)
[2023-08-27 12:09] LABS: Glucose,Whole Blood 179 mg/dL (70-110)
[2023-08-27 12:28] VITALS: BP 122/74; PULSE 50; RESP 18; TEMP 97.6
--- NOTE | 2023-08-27 13:58 | P.DS ---
Providers Date of admission: 08/21/23 16:42 Expected date of discharge: 08/27/23 Attending physician: Juan So MD Consults: 08/22/23 07:58 Consult Physician Routine Consulting Provider: Brett Giang Consult Reason/Comments: hematuria, possible bladder mass Do you want consulting provider notified?: Yes 08/23/23 18:40 Consult Physician Routine Consulting Provider: Andrei Cochran Consult Reason/Comments: pain management, possible epidural injection Do you want consulting provider notified?: Yes Primary care physician: [facility] Hospital Course: Discharge Diagnosis: Physical deconditioning and weakness secondary to uncontrolled back pain resulting in inability to independently perform necessary ADLs Acute on chronic low back pain Hematuria, improving Frequent falls Lower extremity weakness Constipation, resolved Type 2 insulin-dependent diabetes CAD status post stents Hypertension Hyperlipidemia Peripheral neuropathy Hospital Course: Patient is a very pleasant 83-year-old male with a past medical history of type 2 insulin-dependent diabetes, CAD status post stents, peripheral neuropathy, chronic low back pain, hypertension, and dyslipidemia. He presented to the emergency department on 08/21/23 after multiple recent falls at home and worseni ng lower back pain. In the ED, temperature was 98.1, pulse 118, respiratory rate 18, blood pressure 164/95, saturating at 98% on room air. EKG showed normal sinus rhythm with nonspecific ST-T wave changes mostly in the inferior leads. Chest x-ray negative for acute cardiopulmonary process. Lumbar spine x-ray report reviewed showing no acute fracture or dislocation. Labs completed and reviewed CBC was unremarkable with WBC 10, hemoglobin 14, and platelet count of 245. BMP showing a low bicarb 16, elevated BUN 21 with normal creatinine 0.8, and glucose 157. Troponin negative at less than 0.0123 draws. Urinalysis did show jane hematuria with greater than 182 RBCs. Patient was admitted under our services for hematuria and worsening lower back pain with consultation to urology.. Urology evaluated and urologist clearing patient from inpatient perspective recommending follow-up in office for scheduling of outpatient cystoscopy. Pain management evaluated patient and recommending adding on lidocaine patches, physical therapy, and outpatient follow-up in pain clinic for evaluation of medial branch block and possible RFA. Patient has also worked with physical therapy and occupational therapy, they recommended placement in [facility] for [facility] upon discharge. Patient and patient's family discussed these options, patient is in agreement to go to rehab to work on bu ilding balance, strength, and endurance. Medically, patient is stable for discharge to rehab at this time. Patient to follow up outpatient with PCP, pain management clinic, and urologist as directed. Physical exam: Vital signs reviewed and stable. General: Nontoxic, no distress and appears stated age. Derm: Skin warm and dry, normal coloration for ethnicity. Head: Atraumatic, normocephalic and symmetric. Eyes: EOMs intact, no lid lag, and anicteric sclera Mouth: no lip lesions, mucus membranes moist Cardiovascular: regular rate and rhythm with normal S1S2, no murmur, positive posterior tibial pulses bilaterally, and cap refill < 2 seconds. Lungs: Respirations even, regular, and unlabored on room air. Lungs CTA bilaterally, no rhonchi, no rales, no wheezing, and no accessory muscle usage. Abdominal: soft, nontender to palpation, no guarding, no appreciable organomegaly Ext: ROM intact. No gross muscle atrophy, no edema, no contractures Neuro: Speech clear, face symmetrical and CN II-XII grossly intact with no noted focal neuro deficits Psych: Alert and oriented to person, place, time, and situation. Appropriate and pleasant affect. A total of 32 minutes of time were spent preparing this complex discharge summary. Pt was discharged on 08/27/23 at 1:18 PM. Patient was seen independently by Nurse Practitioner. This document was prepared using [employer] dictation software. Please allow for errors in special inspector while rare they do occur. Patient Condition at Discharge: Stable Plan - Discharge Summary Discharge Rx Participant: No New Discharge Prescriptions: New Lidocaine 5% Patch [Lidoderm 5% Patch] 2 patch TOPICAL DAILY patch HYDROcodone/APAP 5-325MG [[place] 5-325] 1 each PO Q6HR PRN #12 tab PRN Reason: Pain Sennosides [Senokot] 8.6 mg PO BID tab Continue Atorvastatin [Lipitor] 40 mg PO HS Cholecalciferol [Vitamin D3 (10 Mcg = 400 Iu)] 400 unit PO DAILY Aspirin [Adult Low Dose Aspirin EC] 81 mg PO DAILY methocarbamoL [Robaxin] 500 mg PO BID metFORMIN HCL 1,000 mg PO BID Insulin Glargine,Hum.rec.anlog [Insulin Glargine Solostar] 20 unit SQ DAILY Magnesium Oxide [Mag-Ox] 250 mg PO DAILY DULoxetine HCL [Cymbalta] 30 mg PO BID Erythromycin Ophth Oint [Romycin Ophth Oint] 1 applic LEFT EYE HS Insulin Aspart [Insulin Aspart Flexpen] 10 unit SQ AC-TID Propranolol HCl [Inderal] 60 mg PO BID Lactulose [Constulose] 20 gm PO DAILY PRN PRN Reason: Constipation traMADol HCl [Ultram] 50 mg PO QID #12 tab Folic Acid 1 mg PO DAILY Multivitamins, Thera [Multivitamin (formulary)] 1 tab PO DAILY Naproxen [Naprosyn] 375 mg PO BID Topiramate [Topamax] 25 mg PO BID Naloxone HCl [Narcan] 4 mg NASAL DIRECTED Gabapentin [Neurontin] 300 mg PO TID #9 cap Discontinued Lidocaine 5% Patch [Lidoderm] 1 patch TOPICAL DAILY PRN PRN Reason: Pain Discharge Medication List Atorvastatin [Lipitor] 40 mg PO HS 01/01/17 [History] Aspirin [Adult Low Dose Aspirin EC] 81 mg PO DAILY 05/29/18 [History] Cholecalciferol [Vitamin D3 (10 Mcg = 400 Iu)] 400 unit PO DAILY 05/29/18 [History] methocarbamoL [Robaxin] 500 mg PO BID 04/04/22 [History] metFORMIN HCL 1,000 mg PO BID 06/30/22 [History] Insulin Glargine,Hum.rec.anlog [Insulin Glargine Solostar] 20 unit SQ DAILY 07/04/22 [History] Folic Acid 1 mg PO DAILY 07/17/22 [History] Magnesium Oxide [Mag-Ox] 250 mg PO DAILY 07/17/22 [History] DULoxetine HCL [Cymbalta] 30 mg PO BID 11/02/22 [History] Multivitamins, Thera [Multivitamin (formulary)] 1 tab PO DAILY 11/02/22 [History] Naproxen [Naprosyn] 375 mg PO BID 11/02/22 [History] Erythromycin Ophth Oint [Romycin Ophth Oint] 1 applic LEFT EYE HS 06/12/23 [History] Insulin Aspart [Insulin Aspart Flexpen] 10 unit SQ AC-TID 06/12/23 [History] Propranolol HCl [Inderal] 60 mg PO BID 06/12/23 [History] Topiramate [Topamax] 25 mg PO BID 06/12/23 [History] Lactulose [Constulose] 20 gm PO DAILY PRN 08/21/23 [History] Naloxone HCl [Narcan] 4 mg NASAL DIRECTED 08/21/23 [History] Gabapentin [Neurontin] 300 mg PO TID #9 cap 08/27/23 [Rx] HYDROcodone/APAP 5-325MG [[place] 5-325] 1 each PO Q6HR PRN #12 tab 08/27/23 [Rx] Lidocaine 5% Patch [Lidoderm 5% Patch] 2 patch TOPICAL DAILY patch 08/27/23 [Rx] Sennosides [Senokot] 8.6 mg PO BID tab 08/27/23 [Rx] traMADol HCl [Ultram] 50 mg PO QID #12 tab 08/27/23 [Rx] Follow up Appointment(s)/Referral(s): Davin Teran MD [STAFF PHYSICIAN] - [facility] Week [facility]Neil CANDELARIO [NON-STAFF] - 1 Week [facility],Clinic [Primary Care Provider] - 1-2 days Discharge Disposition: TRANSFER TO SNF/ECF
== END 2023-08-27 17:22 | DRG 552 ==
LOC: EC 12:41 → 5NMEDONC 16:42
PROVIDERS: ADMIT Student in an Organized Health Care Education/Training Program; ATTEND Student in an Organized Health Care Education/Training Program
DX: M51.36 Other intervertebral disc degeneration, lumbar region (principal); R62.7 Adult failure to thrive; E11.42 Type 2 diabetes mellitus with diabetic polyneuropathy; F20.9 Schizophrenia, unspecified; Z79.4 Long term (current) use of insulin; G89.29 Other chronic pain; M79.18 Myalgia, other site; M47.816 Spondylosis without myelopathy or radiculopathy, lumbar region; R31.0 Gross hematuria; Z28.310 Unvaccinated for COVID-19; I10 Essential (primary) hypertension; E78.5 Hyperlipidemia, unspecified; R29.6 Repeated falls; I25.10 Atherosclerotic heart disease of native coronary artery without angina pectoris; K59.00 Constipation, unspecified; G25.0 Essential tremor; F32.A Depression, unspecified; F41.0 Panic disorder [episodic paroxysmal anxiety]; K80.20 Calculus of gallbladder without cholecystitis without obstruction; M19.90 Unspecified osteoarthritis, unspecified site; F17.210 Nicotine dependence, cigarettes, uncomplicated; Z71.6 Tobacco abuse counseling; Z79.82 Long term (current) use of aspirin; Z79.891 Long term (current) use of opiate analgesic; Z79.84 Long term (current) use of oral hypoglycemic drugs; Z79.1 Long term (current) use of non-steroidal anti-inflammatories (NSAID); Z79.899 Other long term (current) drug therapy; Z91.81 History of falling; Z95.5 Presence of coronary angioplasty implant and graft; Z87.440 Personal history of urinary (tract) infections; W19.XXXA Unspecified fall, initial encounter
CPT/HCPCS: 36415; 71046; 72100; 74018; 76770; 80048; 80053; 81001; 82550; 83036; 83605; 83735; 84484; 85025; 85027; 85610; 85730; 93005; 96374; 96376; 99285

== ENCOUNTER 2023-08-28 08:48 | Emergency (ER) | payer OTHER, MEDICARE ==
[2023-08-28] MEDS ORDERED: ONDANSETRON 4 MG/2 ML VIAL IVP STA (09:09)
[2023-08-28] MEDS ORDERED: MORPHINE SULFATE 2 MG/ML SYRINGE IVP ONE (09:09)
--- NOTE | 2023-08-28 09:12 | ED ---
Fall HPI - General Chief Complaint: Fall Stated Complaint: Fall Time Seen by Provider: 08/28/23 09:00 Source: patient, EMS, RN notes reviewed Mode of arrival: EMS - History of Present Illness Initial Comments: Patient is an 83-year-old male presenting to the ER via EMS with a chief complaint of a fall. Patient was recently discharged from the hospital for weakness. He is currently residing at a rehab facility. Patient had an unwitnessed fall last night. Patient has been complaining of right hip pain since. Patient denies any numbness, paresthesias, or weakness. Patient denies any other injuries, loss of consciousness, blood thinner use but takes a daily aspirin. - Related Data Home Medications Medication Instructions Recorded Confirmed Atorvastatin [Lipitor] 40 mg PO HS 01/01/17 08/21/23 Aspirin [Adult Low Dose Aspirin EC] 81 mg PO DAILY 05/29/18 08/21/23 Cholecalciferol [Vitamin D3 (10 400 unit PO DAILY 05/29/18 08/21/23 Mcg = 400 Iu)] methocarbamoL [Robaxin] 500 mg PO BID 04/04/22 08/21/23 metFORMIN HCL 1,000 mg PO BID 06/30/22 08/21/23 Insulin Glargine,Hum.rec.anlog 20 unit SQ DAILY 07/04/22 08/21/23 [Insulin Glargine Solostar] Folic Acid 1 mg PO DAILY 07/17/22 08/21/23 Magnesium Oxide [Mag-Ox] 250 mg PO DAILY 07/17/22 08/21/23 DULoxetine HCL [Cymbalta] 30 mg PO BID 11/02/22 08/21/23 Multivitamins, Thera [Multivitamin 1 tab PO DAILY 11/02/22 08/21/23 (formulary)] Naproxen [Naprosyn] 375 mg PO BID 11/02/22 08/21/23 Erythromycin Ophth Oint [Romycin 1 applic LEFT EYE HS 06/12/23 08/21/23 Ophth Oint] Insulin Aspart [Insulin Aspart 10 unit SQ AC-TID 06/12/23 08/21/23 Flexpen] Propranolol HCl [Inderal] 60 mg PO BID 06/12/23 08/21/23 Topiramate [Topamax] 25 mg PO BID 06/12/23 08/21/23 Lactulose [Constulose] 20 gm PO DAILY PRN 08/21/23 08/21/23 Naloxone HCl [Narcan] 4 mg NASAL DIRECTED 08/21/23 08/21/23 Previous Rx's Medication Instructions Recorded Gabapentin [Neurontin] 300 mg PO TID #9 cap 08/27/23 HYDROcodone/APAP 5-325MG [[place] 1 each PO Q6HR PRN #12 tab 08/27/23 5-325] Lidocaine 5% Patch [Lidoderm 5% 2 patch TOPICAL DAILY patch 08/27/23 Patch] Sennosides [Senokot] 8.6 mg PO BID tab 08/27/23 traMADol HCl [Ultram] 50 mg PO QID #12 tab 08/27/23 Allergies Allergy/AdvReac Type Severity Reaction Status Date / Time No Known Allergies Allergy Verified 08/21/23 16:20 Review of Systems ROS Statement: Those systems with pertinent positive or pertinent negative responses have been documented in the HPI. ROS Other: All systems not noted in ROS Statement are negative. Past Medical History Past Medical History: Coronary Artery Disease (CAD), Diabetes Mellitus, GI Bleed, Hyperlipidemia, Osteoarthritis (OA) Additional Past Medical History / Comment(s): ESSENTIAL TREMORS, GI bleed 10/2017, diverticulitis, gallstones, some loss of use of rt arm, herniated disk, spinal stenosis History of Any Multi-Drug Resistant Organisms: None Reported Past Surgical History: Cholecystectomy Additional Past Surgical History / Comment(s): 3 cardiac stents, surgery on rt arm x 3 -fx as child, left eyelid surgery Past Anesthesia/Blood Transfusion Reactions: No Reported Reaction Date of Last Stent Placement:: 1999 Past Psychological History: Anxiety, Depression, Panic Disorder, Schizophrenia Smoking Status: Current every day smoker Past Alcohol Use History: None Reported Past Drug Use History: None Reported - Past Family History Mother Family Medical History: No Reported History family Family Medical History: Coronary Artery Disease (CAD) General Exam Limitations: no limitations General appearance: alert, in no apparent distress Head exam: Present: atraumatic, normocephalic, normal inspection Eye exam: Present: normal appearance, PERRL, EOMI. Absent: scleral icterus, conjunctival injection, periorbital swelling Pupils: Present: normal accommodation Respiratory exam: Present: normal lung sounds bilaterally. Absent: respiratory distress, wheezes, rales, rhonchi, stridor Cardiovascular Exam: Present: regular rate, normal rhythm, normal heart sounds. Absent: systolic murmur, diastolic murmur, rubs, gallop, clicks GI/Abdominal exam: Present: soft, normal bowel sounds. Absent: distended, tenderness, guarding, rebound, rigid Extremities exam: Present: other (Right leg shortened and externally rotated. 2+ dorsalis pedis pulse bilaterally. Equal strength. feet cool to touch.) Course Vital Signs 08/28/23 08:49 Temperature 97.9 F Pulse Rate 66 Respiratory 18 Rate Blood Pressure 117/77 O2 Sat by Pulse 95 Oximetry Medical Decision Making - Medical Decision Making Was pt. sent in by a medical professional or institution (, PA, STRETCHING MACHINE TENDER FRAME, urgent care, hospital, or long-term...) When possible be specific @ -Rehab facility Did you speak to anyone other than the patient for history (EMS, parent, family, police, friend...)? What history was obtained from this source @ -EMS Did you review nursing and triage notes (agree or disagree)? Why? @ -I reviewed and agree with nursing and triage notes Were old charts reviewed (outside hosp., previous admission, EMS record, old EKG, old radiological studies, urgent care reports/EKG's, long-term records)? Report findings @ -No old charts were reviewed Differential Diagnosis (chest pain, altered mental status, abdominal pain women, abdominal pain men, vaginal bleeding, weakness, fever, dyspnea, syncope, headache, dizziness, GI bleed, back pain, seizure, CVA, palpatations, mental health, musculoskeletal)? @ -nDifferential Musculoskeletal Muscular strain, contusion, ligament sprain, fracture, arthritis, septic arthritis, bursitis, cellulitis, muscle spasm, nerve compression, DVT, arterial occlusion, herpes zoster, electrolyte abnormality, tumor.... This is not meant to be in all inclusive listble EKG interpreted by me (3pts min.). @ -none X-rays interpreted by me (1pt min.). @ -Right hip x-ray showed no definitive fracture line and foreshortening of the right femoral neck. Recommended CT CT interpreted by me (1pt min.). @ -Right hip CT showed no significant dislocation or fracture. U/S interpreted by me (1pt. min.). @ -None done What testing was considered but not performed or refused? (CT, X-rays, U/S, labs)? Why? @ -None What meds were considered but not given or refused? Why? @ -None Did you discuss the management of the patient with other professionals (professionals i.e. , PA, STRETCHING MACHINE TENDER FRAME, lab, RT, psych nurse, social studies teacher, sunday school missionary, teacher, consumer loan officer, child support case officer)? Give summary @ -No Was smoking cessation discussed for >3mins.? @ -No Was critical care preformed (if so, how long)? @ -No Were there social determinants of health that impacted care today? How? (Homelessness, low income, unemployed, alcoholism, drug addiction, trans portation, low edu. Level, literacy, decrease access to med. care, group home, rehab)? @ -No Was there de-escalation of care discussed even if they declined (Discuss DNR or withdrawal of care, Hospice)? DNR status @ -No What co-morbidities impacted this encounter? (DM, HTN, Smoking, COPD, CAD, Cancer, CVA, ARF, Chemo, Hep., AIDS, mental health diagnosis, sleep apnea, morbid obesity)? @ -None Was patient admitted / discharged? Hospital course, mention meds given and route, prescriptions, significant lab abnormalities, going to OR and other pertinent info. @ -Discharged. Patient is an 83-year-old male presented ER via EMS with chief complaint of a fall/right hip pain. Patient received IV morphine and IV Zofran in the ER. X-ray of the right hip showed no definitive fracture line and foreshortening of the right femoral neck. CT of the right hip showed no signi ficant fracture or dislocation. Patient will be discharged back to rehab facility in stable condition. Undiagnosed new problem with uncertain prognosis? @ -No Drug Therapy requiring intensive monitoring for toxicity (Heparin, Nitro, Insulin, Cardizem)? @ -No Were any procedures done? @ -No Diagnosis/symptom? @ -Right hip pain Acute, or Chronic, or Acute on Chronic? @ -Acute Uncomplicated (without systemic symptoms) or Complicated (systemic symptoms)? @ -Uncomplicated Side effects of treatment? @ -No Exacerbation, Progression, or Severe Exacerbation? @ -No Poses a threat to life or bodily function? How? (Chest pain, [place], [place], pneumonia, PE, COPD, DKA, ARF, appy, cholecystitis, CVA, Diverticulitis, Homicidal, Suicidal, threat to staff... and all critical care pts) @ -No - Radiology Data Radiology results: report reviewed, image reviewed Disposition Clinical Impression: Fall, Hip pain Disposition: HOME SELF-CARE Condition: Stable Additional Instructions: Please return to the Emergency Department if symptoms worsen or any other concerns. Is patient prescribed a controlled substance at d/c from ED?: No Referrals: [facility],Clinic [Primary Care Provider] - 1-2 days
[2023-08-28 09:13] VITALS: RESP 18
--- NOTE | 2023-08-28 09:32 | XR ---
EXAMINATION TYPE: XR Hip Complete RT DATE OF EXAM: 08/28/2023 COMPARISON: NONE HISTORY: Pain TECHNIQUE: 2 views submitted FINDINGS: Diffuse osteopenia. Soft tissue ossification calcifications noted. There is foreshortening of the rig ht femoral neck. IMPRESSION: 1. No definite fracture line seen. There is foreshortening of the right femoral neck. Recommend CT of the right hip.
--- NOTE | 2023-08-28 10:58 | CT ---
EXAMINATION TYPE: CT hip RT wo con DATE OF EXAM: 08/28/2023 COMPARISON: Radiograph same date HISTORY: 83-year-old male Hip pain TECHNIQUE: Contiguous axial scanning of the right hip without IV contrast. Coronal and sagittal recon structions performed. CT DLP: 624.6 mGycm Automated exposure control for dose reduction was used. FINDINGS: Sigmoid diverticulosis and prostatomegaly. Mild degenerative change at the right hip. There is some motion artifact. Marked osteopenia. No displaced fracture is seen. No significant soft tissue abnormality is seen. IMPRESSION: MARKED OSTEOPENIA LIMITING THE ASSESSMENT. THERE IS MILD RIGHT HIP OA. NO DISPLACED FRACTURE IS SEEN. IF THE PATIENT IS NONWEIGHTBEARING/IF THERE IS HIGH CLINICAL CONCERN FOR AN OCCULT OSSEOUS INJURY, MR I CAN PROVIDE MORE SENSITIVE EVALUATION.
[2023-08-28] MEDS ORDERED: HYDROcodone/APAP 5-325MG 1 EACH TAB PO STA ×2 (12:27→12:30)
[2023-08-28] MEDS ORDERED: traMADol 50 MG TAB PO STA (12:28)
[2023-08-28 12:37] VITALS: TEMP 96.9
[2023-08-28 14:32] VITALS: BP 124/76; PULSE 74
== END 2023-08-28 14:14 | disposition home or self-care (01) ==
LOC: EC 08:48 → SUPCPDRO 08:48 → EC 14:14
DX: M25.551 Pain in right hip (principal); I25.10 Atherosclerotic heart disease of native coronary artery without angina pectoris; E11.9 Type 2 diabetes mellitus without complications; E78.5 Hyperlipidemia, unspecified; F41.9 Anxiety disorder, unspecified; F32.A Depression, unspecified; F20.9 Schizophrenia, unspecified; F17.200 Nicotine dependence, unspecified, uncomplicated; Z79.82 Long term (current) use of aspirin; Z79.84 Long term (current) use of oral hypoglycemic drugs; Z79.4 Long term (current) use of insulin; Z79.899 Other long term (current) drug therapy; W19.XXXA Unspecified fall, initial encounter
CPT/HCPCS: 73502; 73700; 99285; 96374; 96375; J2405; J2270

== ENCOUNTER 2023-09-06 20:38 | Emergency (ER) | payer OTHER, MEDICARE ==
[2023-09-06 21:07] VITALS: TEMP 97.8
[2023-09-06] MEDS ORDERED: diphenhydrAMINE 50 MG/ML 1 ML VIAL IVP STA (22:05)
[2023-09-06] MEDS ORDERED: LORazepam 2 MG/ML INJ IV STA (22:05)
[2023-09-06] MEDS ORDERED: SODIUM CHLORIDE 0.9% 500 ML 500 ML IV STA ×2 (22:05→23:26)
--- NOTE | 2023-09-06 22:06 | ED ---
Recheck HPI - General Chief Complaint: Neuro Symptoms/Deficit Stated Complaint: Tremors Time Seen by Provider: 09/06/23 21:52 Source: patient, EMS, RN notes reviewed, old records reviewed, Caregiver Mode of arrival: EMS Limitations: no limitations - History of Present Illness Initial Comments: This is a 83-year-old male to the emergency room in today for evaluation of tremors. Patient has recurrent tremors here in the ER. A she has underlying diagnosis of tremors always having increasing intact. Patient himself is unable to provide history. Please secondary to shaking stay. History provided by EMS and patient's chart - Related Data Home Medications Medication Instructions Recorded Confirmed Atorvastatin [Lipitor] 40 mg PO HS 01/01/17 09/07/23 Aspirin [Adult Low Dose Aspirin EC] 81 mg PO DAILY 05/29/18 09/07/23 Cholecalciferol [Vitamin D3 (10 400 unit PO DAILY 05/29/18 09/07/23 Mcg = 400 Iu)] methocarbamoL [Robaxin] 500 mg PO BID 04/04/22 09/07/23 metFORMIN HCL 1,000 mg PO BID 06/30/22 09/07/23 Folic Acid 1 mg PO DAILY 07/17/22 09/07/23 Magnesium Oxide [Mag-Ox] 250 mg PO DAILY 07/17/22 09/07/23 DULoxetine HCL [Cymbalta] 30 mg PO BID 11/02/22 09/07/23 Multivitamins, Thera [Multivitamin 1 tab PO DAILY 11/02/22 09/07/23 (formulary)] Naproxen [Naprosyn] 375 mg PO BID 11/02/22 09/07/23 Propranolol HCl [Inderal] 60 mg PO BID 06/12/23 09/07/23 Topiramate [Topamax] 25 mg PO BID 06/12/23 09/07/23 Lactulose [Constulose] 20 gm PO DAILY PRN 08/21/23 09/07/23 Naloxone HCl [Narcan] 4 mg NASAL DIRECTED PRN 08/21/23 09/07/23 HYDROcodone/APAP 5-325MG [Hemet 1 tab PO Q6HR PRN 09/07/23 09/07/23 5-325] Insulin Glargine,Hum.rec.anlog 20 units SQ DAILY 09/07/23 09/07/23 [Lantus Solostar Pen] Insulin Lispro [humaLOG Kwikpen] 10 unit SQ AC-TID 09/07/23 09/07/23 Magnesium Hydroxide [Milk of 2,400 mg PO DAILY PRN 09/07/23 09/07/23 Magnesia] traMADol HCl [Ultram] 50 mg PO Q6H 09/07/23 09/07/23 Previous Rx's Medication Instructions Recorded Gabapentin [Neurontin] 300 mg PO TID #9 cap 08/27/23 Lidocaine 5% Patch [Lidoderm 5% 2 patch TOPICAL DAILY patch 08/27/23 Patch] Sennosides [Senokot] 8.6 mg PO BID tab 08/27/23 Allergies Allergy/AdvReac Type Severity Reaction Status Date / Time No Known Allergies Allergy Verified 09/07/23 18:04 Review of Systems ROS Statement: Those systems with pertinent positive or pertinent negative responses have been documented in the HPI. ROS Other: All systems not noted in ROS Statement are negative. Past Medical History Past Medical History: Coronary Artery Disease (CAD), Diabetes Mellitus, GI Bleed, Hyperlipidemia, Osteoarthritis (OA) Additional Past Medical History / Comment(s): ESSENTIAL TREMORS, GI bleed 10/2017, diverticulitis, gallstones, some loss of use of rt arm, herniated disk, spinal stenosis History of Any Multi-Drug Resistant Organisms: None Reported Past Surgical History: Cholecystectomy Additional Past Surgical History / Comment(s): 3 cardiac stents, surgery on rt arm x 3 -fx as child, left eyelid surgery Past Anesthesia/Blood Transfusion Reactions: No Reported Reaction Date of Last Stent Placement:: 1999 Past Psychological History: Anxiety, Depression, Panic Disorder, Schizophrenia Smoking Status: Current every day smoker Past Alcohol Use History: None Reported Past Drug Use History: None Reported - Past Family History Mother Family Medical History: No Reported History family Family Medical History: Coronary Artery Disease (CAD) General Exam Limitations: no limitations General appearance: alert, in no apparent distress Head exam: Present: atraumatic, normocephalic, normal inspection Eye exam: Present: normal appearance, PERRL, EOMI. Absent: scleral icterus, conjunctival injection, periorbital swelling ENT exam: Present: normal exam, mucous membranes moist Neck exam: Present: normal inspection. Absent: tenderness, meningismus, lymphadenopathy Respiratory exam: Present: normal lung sounds bilaterally. Absent: respiratory distress, wheezes, rales, rhonchi, stridor Cardiovascular Exam: Present: regular rate, normal rhythm, normal heart sounds. Absent: systolic murmur, diastolic murmur, rubs, gallop, clicks GI/Abdominal exam: Present: soft, normal bowel sounds. Absent: distended, tenderness, guarding, rebound, rigid Extremities exam: Present: normal inspection, full ROM, normal capillary refill. Absent: tenderness, pedal edema, joint swelling, calf tenderness Back exam: Present: normal inspection Neurological exam: Present: alert, oriented X3, CN II-XII intact Psychiatric exam: Present: normal affect, normal mood Skin exam: Present: warm, dry, intact, normal color. Absent: rash Course Vital Signs 09/06/23 09/06/23 09/06/23 20:49 21:33 22:29 Temperature 97.8 F Pulse Rate 64 74 65 Respiratory 18 20 20 Rate Blood Pressure 108/66 143/73 126/75 O2 Sat by Pulse 96 97 96 Oximetry 09/07/23 00:50 Temperature Pulse Rate 57 L Respiratory 17 Rate Blood Pressure 123/69 O2 Sat by Pulse 98 Oximetry - Reevaluation(s) Reevaluation #1: 09/06/23 Medical record is reviewed Reevaluation #2: 09/06/23 Patient symptoms are improved here in the ER Reevaluation #3: Patient informed results questions answered Reevaluation #4: Was pt. sent in by a medical professional or institution (, PA, TAPE RULES PRINTING MACHINE OPERATOR, urgent care, hospital, or fci...) When possible be specific @ -no Did you speak to anyone other than the patient for history (EMS, parent, family, police, friend...)? What history was obtained from this source @ -no Did you review nursing and triage notes (agree or disagree)? Why? @ -agree Are old charts reviewed (outside hosp., previous admission, EMS record, old EKG, old radiological studies, urgent care reports/EKG's, fci records)? Report findings @ -yes Differential Diagnosis (chest pain, altered mental status, abdominal pain women, abdominal pain men, vaginal bleeding, weakness, fever, dyspnea, syncope, headache, dizziness, GI bleed, back pain, seizure, CVA, palpatations, mental health, musculoskeletal)? @ -prior EKG interpreted by me (3pts min.). @ -yes X-rays interpreted by me (1pt min.). @ -no CT interpreted by me (1pt min.). @ -no U/S interpreted by me (1pt. min.). @ -no What testing was considered but not performed or refused? (CT, X-rays, U/S, labs)? Why? @ -none What meds were considered but not given or refused? Why? @ -none Did you discuss the management of the patient with other professionals (professionals i.e. DrMikal, PA, TAPE RULES PRINTING MACHINE OPERATOR, lab, RT, psych nurse, marriage and family social worker, anchor tack puller, teacher, founder and chief executive officer, vocational case manager)? Give summary @ -no Was smoking cessation discussed for >3mins.? @ -no Was critical care preformed (if so, how long)? @ -no Were there social determinants of health that impacted care today? How? (Homelessness, low income, unemployed, alcoholism, drug addiction, transportation, low edu. Level, literacy, decrease access to med. care, half-way, rehab)? @ -none Was there de-escalation of care discussed even if they declined (Discuss DNR or withdrawal of care, Hospice)? DNR status @ -no What co-morbidities impacted this encounter? (DM, HTN, Smoking, COPD, CAD, Cancer, CVA, ARF, Chemo, Hep., AIDS, mental health diagnosis, sleep apnea, morbid obesity)? @ -none Was patient admitted / discharged? Hospital course, mention meds given and route, prescriptions, significant lab abnormalities, going to OR and other pertinent info. @ - 83 male to the emergency department for evaluation of significant tremors. Patient is concern for increasing frequency and severity of covert from [facility] and patient will be discharged home with symptoms are improved here in the ER he feels well awake and alert Discharged Undiagnosed new problem with uncertain prognosis? @ -no Drug Therapy requiring intensive monitoring for toxicity (Heparin, Nitro, Insulin, Cardizem)? @ -no Were any procedures done? @ -no Diagnosis/symptom? @ -Tremors Acute, or Chronic, or Acute on Chronic? @ -Acute Uncomplicated (without systemic symptoms) or Complicated (systemic symptoms)? @ -Complicated Side effects of treatment? @ -no Exacerbation, Progression, or Severe Exacerbation? @ -exacerbation Poses a threat to life or bodily function? How? (Chest pain, [place], [place], pneumonia, PE, COPD, DKA, ARF, appy, cholecystitis, CVA, Diverticulitis, Homicidal, Suicidal, threat to staff... and all critical care pts) @ -no Reevaluation #5: 09/13/23 20:46 Differential CVA Ischemic stroke, hemorrhagic stroke, brain tumor, atypical migraine, Wernicke's encephalopathy, seizure, multiple sclerosis, meningitis, encephalitis, hypoglycemia, Guillain-Wagoner, electrolytes disturbance, myasthenia gravis.... This is not meant to be an all-inclusive list Medical Decision Making - Medical Decision Making 83 male to the emergency department for evaluation of significant tremors. Patient is concern for increasing frequency and severity of covert from [facility] and patient will be discharged home with symptoms are improved here in the ER he feels well awake and alert - Lab Data Result diagrams: 09/06/23 22:28 09/06/23 22:28 Lab Results 09/06/23 09/06/23 Range/Units 22:28 22:28 WBC 8.4 (3.8-10.6) k/uL RBC 3.88 L (4.30-5.90) m/uL Hgb 12.2 L (13.0-17.5) gm/dL Hct 36.0 L (39.0-53.0) % MCV 92.9 (80.0-100.0) fL MCH 31.4 (25.0-35.0) pg MCHC 33.8 (31.0-37.0) g/dL RDW 15.1 (11.5-15.5) % Plt Count 225 (150-450) k/uL MPV 7.9 Neutrophils % 68 % Lymphocytes % 21 % Monocytes % 5 % Eosinophils % 4 % Basophils % 1 % Neutrophils # 5.7 (1.3-7.7) k/uL Lymphocytes # 1.8 (1.0-4.8) k/uL Monocytes # 0.4 (0-1.0) k/uL Eosinophils # 0.3 (0-0.7) k/uL Basophils # 0.0 (0-0.2) k/uL Sodium 138 (137-145) mmol/L Potassium 4.7 (3.5-5.1) mmol/L Chloride 108 H (98-107) mmol/L Carbon Dioxide 19 L (22-30) mmol/L Anion Gap 11 mmol/L BUN 27 H (9-20) mg/dL Creatinine 1.02 (0.66-1.25) mg/dL Est GFR (CKD-EPI)AfAm 80 (>60 ml/min/1.73 sqM) Est GFR (CKD-EPI)NonAf 69 (>60 ml/min/1.73 sqM) Glucose 88 (74-99) mg/dL Calcium 9.7 (8.4-10.2) mg/dL Phosphorus 3.5 (2.5-4.5) mg/dL Magnesium 2.1 (1.6-2.3) mg/dL Total Bilirubin 0.5 (0.2-1.3) mg/dL AST 29 (17-59) U/L ALT 30 (4-49) U/L Alkaline Phosphatase 99 (38-126) U/L Total Protein 6.1 L (6.3-8.2) g/dL Albumin 3.8 (3.5-5.0) g/dL - EKG Data -: EKG Interpreted by Me (EKG is sinus 72 LA 176 QRS 90 QTC 407) Disposition Clinical Impression: Tremors of nervous system Disposition: HOME SELF-CARE Condition: Good Instructions (If sedation given, give patient instructions): Tremors (ED) Is patient prescribed a controlled substance at d/c from ED?: No Referrals: [facility],Clinic [Primary Care Provider] - 1-2 days Time of Disposition: 23:20
[2023-09-06 22:49] LABS: Basophils % (A) 1 %; Eosinophils # (A) 0.3 k/uL (0-0.7); Eosinophils % (A) 4 %; HGB 12.2 gm/dL (13.0-17.5); Lymphocytes # (A) 1.8 k/uL (1.0-4.8); Lymphocytes % (A) 21 %; MCH 31.4 pg (25.0-35.0); MCHC 33.8 g/dL (31.0-37.0); MCV 92.9 fL (80.0-100.0); Mean Platelet Volume 7.9; Monocytes # (A) 0.4 k/uL (0-1.0); Monocytes % (A) 5 %; Neutrophils # (A) 5.7 k/uL (1.3-7.7); Neutrophils % (A) 68 %; Platelet Count 225 k/uL (150-450); RBC 3.88 m/uL (4.30-5.90); RDW 15.1 % (11.5-15.5); WBC 8.4 k/uL (3.8-10.6)
[2023-09-06 22:59] LABS: ALT 30 U/L (4-49); AST 29 U/L (17-59); African American GFR (CKD) 80 (>60 ml/min/1.73 sqM); Albumin 3.8 g/dL (3.5-5.0); Alkaline Phosphatase 99 U/L (38-126); Anion Gap 11 mmol/L; Blood Urea Nitrogen 27 mg/dL (9-20); Calcium 9.7 mg/dL (8.4-10.2); Carbon Dioxide 19 mmol/L (22-30); Chloride 108 mmol/L (98-107); Glucose 88 mg/dL (74-99); Magnesium 2.1 mg/dL (1.6-2.3); Non-African American GFR(CKD) 69 (>60 ml/min/1.73 sqM); Phosphorus 3.5 mg/dL (2.5-4.5); Potassium 4.7 mmol/L (3.5-5.1); Sodium 138 mmol/L (137-145); Total Bilirubin 0.5 mg/dL (0.2-1.3); Total Protein 6.1 g/dL (6.3-8.2)
[2023-09-07 01:32] VITALS: BP 123/69; PULSE 57; RESP 17
== END 2023-09-07 00:52 | disposition home or self-care (01) ==
LOC: EC 20:38
DX: R25.1 Tremor, unspecified (principal); I25.2 Old myocardial infarction; I25.10 Atherosclerotic heart disease of native coronary artery without angina pectoris; E11.9 Type 2 diabetes mellitus without complications; E78.5 Hyperlipidemia, unspecified; M19.90 Unspecified osteoarthritis, unspecified site; F17.200 Nicotine dependence, unspecified, uncomplicated; Z86.59 Personal history of other mental and behavioral disorders; Z79.4 Long term (current) use of insulin; Z79.1 Long term (current) use of non-steroidal anti-inflammatories (NSAID); Z79.82 Long term (current) use of aspirin; Z79.84 Long term (current) use of oral hypoglycemic drugs; Z95.5 Presence of coronary angioplasty implant and graft
CPT/HCPCS: 36415; 93005; 80053; 83735; 84100; 85025; 99285; 96374; 96375; 96361 ×2; J2060; J1200

== ENCOUNTER 2023-09-07 16:41 | Emergency (ER) | payer OTHER, MEDICARE ==
[2023-09-07 17:07] VITALS: PULSE 57
--- NOTE | 2023-09-07 17:16 | ED ---
General Adult HPI - General Chief complaint: Seizure Stated complaint: Seizures Time Seen by Provider: 09/07/23 16:59 Source: patient, EMS, RN notes reviewed, old records reviewed Mode of arrival: EMS Limitations: no limitations - History of Present Illness Initial comments: 83-year-old male presents for evaluation of a possible seizure-like activity. Patient has a diagnosis of essential tremor. He is on propranolol and Topamax. He states that he was sent in by the custodial staff with tremor activity. He states he is aware of the tremor he is awake and alert during these episodes. He states that they have said that this was possibly seizure and sent him in for evaluation. Patient denies history of seizure. He denies headache. Denies focal numbness or weakness. He has no complaints and is not certain why he is here. - Related Data Home Medications Medication Instructions Recorded Confirmed Atorvastatin [Lipitor] 40 mg PO HS 01/01/17 09/07/23 Aspirin [Adult Low Dose Aspirin EC] 81 mg PO DAILY 05/29/18 09/07/23 Cholecalciferol [Vitamin D3 (10 400 unit PO DAILY 05/29/18 09/07/23 Mcg = 400 Iu)] methocarbamoL [Robaxin] 500 mg PO BID 04/04/22 09/07/23 metFORMIN HCL 1,000 mg PO BID 06/30/22 09/07/23 Folic Acid 1 mg PO DAILY 07/17/22 09/07/23 Magnesium Oxide [Mag-Ox] 250 mg PO DAILY 07/17/22 09/07/23 DULoxetine HCL [Cymbalta] 30 mg PO BID 11/02/22 09/07/23 Multivitamins, Thera [Multivitamin 1 tab PO DAILY 11/02/22 09/07/23 (formulary)] Naproxen [Naprosyn] 375 mg PO BID 11/02/22 09/07/23 Propranolol HCl [Inderal] 60 mg PO BID 06/12/23 09/07/23 Topiramate [Topamax] 25 mg PO BID 06/12/23 09/07/23 Lactulose [Constulose] 20 gm PO DAILY PRN 08/21/23 09/07/23 Naloxone HCl [Narcan] 4 mg NASAL DIRECTED PRN 08/21/23 09/07/23 HYDROcodone/APAP 5-325MG [Mchenry 1 tab PO Q6HR PRN 09/07/23 09/07/23 5-325] Insulin Glargine,Hum.rec.anlog 20 units SQ DAILY 09/07/23 09/07/23 [Lantus Solostar Pen] Insulin Lispro [humaLOG Kwikpen] 10 unit SQ AC-TID 09/07/23 09/07/23 Magnesium Hydroxide [Milk of 2,400 mg PO DAILY PRN 09/07/23 09/07/23 Magnesia] traMADol HCl [Ultram] 50 mg PO Q6H 09/07/23 09/07/23 Previous Rx's Medication Instructions Recorded Gabapentin [Neurontin] 300 mg PO TID #9 cap 08/27/23 Lidocaine 5% Patch [Lidoderm 5% 2 patch TOPICAL DAILY patch 08/27/23 Patch] Sennosides [Senokot] 8.6 mg PO BID tab 08/27/23 Allergies Allergy/AdvReac Type Severity Reaction Status Date / Time No Known Allergies Allergy Verified 09/07/23 18:04 Review of Systems ROS Statement: Those systems with pertinent positive or pertinent negative responses have been documented in the HPI. ROS Other: All systems not noted in ROS Statement are negative. Past Medical History Past Medical History: Coronary Artery Disease (CAD), Diabetes Mellitus, GI Bleed, Hyperlipidemia, Osteoarthritis (OA) Additional Past Medical History / Comment(s): ESSENTIAL TREMORS, GI bleed 10/2017, diverticulitis, gallstones, some loss of use of rt arm, herniated disk, spinal stenosis History of Any Multi-Drug Resistant Organisms: None Reported Past Surgical History: Cholecystectomy Additional Past Surgical History / Comment(s): 3 cardiac stents, surgery on rt arm x 3 -fx as child, left eyelid surgery Past Anesthesia/Blood Transfusion Reactions: No Reported Reaction Date of Last Stent Placement:: 1999 Past Psychological History: Anxiety, Depression, Panic Disorder, Schizophrenia Smoking Status: Current every day smoker Past Alcohol Use History: None Reported Past Drug Use History: None Reported - Past Family History Mother Family Medical History: No Reported History family Family Medical History: Coronary Artery Disease (CAD) General Exam Limitations: no limitations General appearance: alert, in no apparent distress Head exam: Present: atraumatic, normocephalic Eye exam: Present: normal appearance, PERRL ENT exam: Present: normal exam Neck exam: Present: normal inspection. Absent: tenderness Respiratory exam: Present: normal lung sounds bilaterally. Absent: respiratory distress, wheezes Cardiovascular Exam: Present: regular rate, normal rhythm GI/Abdominal exam: Present: soft. Absent: distended, tenderness, guarding Extremities exam: Present: normal capillary refill, other Neurological exam: Present: alert, oriented X3, CN II-XII intact, other (Upper and lower extremity tremor). Absent: motor sensory deficit Course Vital Signs 09/07/23 16:44 Temperature 97.9 F Pulse Rate 57 L Respiratory 18 Rate Blood Pressure 142/103 O2 Sat by Pulse 97 Oximetry Medical Decision Making - Medical Decision Making Was pt. sent in by a medical professional or institution (, PA, GOLF BALL MOLDER, urgent care, hospital, or custodial...) When possible be specific @ -Center from a custodial for evaluation of tremor and possible seizure. Did you speak to anyone other than the patient for history (EMS, parent, family, police, friend...)? What history was obtained from this source @ -No Did you review nursing and triage notes (agree or disagree)? Why? @ -I reviewed and agree with nursing and triage notes Were old charts reviewed (outside hosp., previous admission, EMS record, old EKG, old radiological studies, urgent care reports/EKG's, custodial records)? Report findings @ -No old charts were reviewed Differential Diagnosis (chest pain, altered mental status, abdominal pain women, abdominal pain men, vaginal bleeding, weakness, fever, dyspnea, syncope, headache, dizziness, GI bleed, back pain, seizure, CVA, palpatations, mental health, musculoskeletal)? @ Differential Seizure: Recurrent seizure disorder, febrile seizure, alcohol withdrawal, stimulants, meningitis, encephalitis, intercranial hemorrhage, intracranial tumor, stroke, eclampsia, thyrotoxicosis, hypocalcemia, hyponatremia, hypernatremia, hypomagnesemia, psychogenic, this is not meant to be an all-inclusive list. EKG interpreted by me (3pts min.). @ -[Sinus bradycardia rate of 54, SC interval 174, QRS duration 98, QTC [address] segment elevation X-rays interpreted by me (1pt min.). @ -None done CT interpreted by me (1pt min.). @ -None done U/S interpreted by me (1pt. min.). @ -None done What testing was considered but not performed or refused? (CT, X-rays, U/S, labs)? Why? @ -None What meds were considered but not given or refused? Why? @ -None Did you discuss the management of the patient with other professionals (professionals i.e. , PA, GOLF BALL MOLDER, lab, RT, psych nurse, social services designee, annual greenhouse manager, teacher, chief human resources officer, home health care case manager)? Give summary @ -No Was smoking cessation discussed for >3mins.? @ -No Was critical care preformed (if so, how long)? @ -No Were there social determinants of health that impacted care today? How? (Homelessness, low income, unemployed, alcoholism, drug addiction, transportation, low edu. Level, literacy, decrease access to med. care, intermediate, rehab)? @ -No Was there de-escalation of care discussed even if they declined (Discuss DNR or withdrawal of care, Hospice)? DNR status @ -No What co-morbidities impacted this encounter? (DM, HTN, Smoking, COPD, CAD, Cancer, CVA, ARF, Chemo, Hep., AIDS, mental health diagnosis, sleep apnea, morbid obesity)? @ Patient has history of essential tremor. Was patient admitted / discharged? Hospital course, mention meds given and route, prescriptions, significant lab abnormalities, going to OR and other pertinent info. @ -[83-year-old male from the custodial with tremor and concern for seizure activity. I was able to witness this tremor and it is not consistent with seizure. This is consistent with essential tremor. The patient is awake and alert. There had apparently been an episode where the patient was not alert for approximately 60-90 seconds with this associated generalized tremor. However the patient did not have a postictal state. I did obtain laboratory tests include CBC, CMP, lactic acid. He has no acidosis or lactic acidosis to suggest seizure. He has a normal urinalysis. His vital signs are stable. He states he is followed with neurology regarding this tremor and is on several medications. He has no complaints. Stable for discharge back to the custodial. Undiagnosed new problem with uncertain prognosis? @ -No Drug Therapy requiring intensive monitoring for toxicity (Heparin, Nitro, Insulin, Cardizem)? @ -No Were any procedures done? @ -No Diagnosis/symptom? @ -Tremor Acute, or Chronic, or Acute on Chronic? @Chronic Uncomplicated (without systemic symptoms) or Complicated (systemic symptoms)? @ -default Side effects of treatment? @ -No Exacerbation, Progression, or Severe Exacerbation? @ -No Poses a threat to life or bodily function? How? (Chest pain, [place], [place], pneumonia, PE, COPD, DKA, ARF, appy, cholecystitis, CVA, Diverticulitis, Homicidal, Suicidal, threat to staff... and all critical care pts) @ -No - Lab Data Result diagrams: 09/07/23 17:09/07/23: Lab Results 09/07/23 09/07/23 09/07/23 Range/Units ::: WBC 7.7 (3.8-10.6) k/uL RBC 3.80 L (4.30-5.90) m/uL Hgb 12.2 L (13.0-17.5) gm/dL Hct 35.8 L (39.0-53.0) % MCV 94.2 (80.0-100.0) fL MCH 32.0 (25.0-35.0) pg MCHC 34.0 (31.0-37.0) g/dL RDW 14.7 (11.5-15.5) % Plt Count 208 (150-450) k/uL MPV 7.5 Neutrophils % 70 % Lymphocytes % 20 % Monocytes % 4 % Eosinophils % 4 % Basophils % 1 % Neutrophils # 5.4 (1.3-7.7) k/uL Lymphocytes # 1.6 (1.0-4.8) k/uL Monocytes # 0.3 (0-1.0) k/uL Eosinophils # 0.3 (0-0.7) k/uL Basophils # 0.1 (0-0.2) k/uL Sodium 140 (137-145) mmol/L Potassium 4.4 (3.5-5.1) mmol/L Chloride 108 H (98-107) mmol/L Carbon Dioxide 25 (22-30) mmol/L Anion Gap 7 mmol/L BUN 22 H (9-20) mg/dL Creatinine 0.93 (0.66-1.25) mg/dL Est GFR (CKD-EPI)AfAm 89 (>60 ml/min/1.73 sqM) Est GFR (CKD-EPI)NonAf 77 (>60 ml/min/1.73 sqM) Glucose 77 (74-99) mg/dL Plasma Lactic Acid Paul (0.7-2.0) mmol/L Calcium 9.4 (8.4-10.2) mg/dL Magnesium 2.1 (1.6-2.3) mg/dL Total Bilirubin 0.5 (0.2-1.3) mg/dL AST 28 (17-59) U/L ALT 30 (4-49) U/L Alkaline Phosphatase 94 (38-126) U/L Total Protein 6.0 L (6.3-8.2) g/dL Albumin 3.7 (3.5-5.0) g/dL Urine Color Colorless Urine Appearance Clear (Clear) Urine pH 6.5 (5.0-8.0) Ur Specific [place] 1.012 (1.001-1.035) Urine Protein Negative (Negative) Urine Glucose (UA) Negative (Negative) Urine Ketones Negative (Negative) Urine Blood Negative (Negative) Urine Nitrite Negative (Negative) Urine Bilirubin Negative (Negative) Urine Urobilinogen <2.0 (<2.0) mg/dL Ur Leukocyte Esterase Negative (Negative) 09/07/23 Range/Units 17:23 WBC (3.8-10.6) k/uL RBC (4.30-5.90) m/uL Hgb (13.0-17.5) gm/dL Hct (39.0-53.0) % MCV (80.0-100.0) fL MCH (25.0-35.0) pg MCHC (31.0-37.0) g/dL RDW (11.5-15.5) % Plt Count (150-450) k/uL MPV Neutrophils % % Lymphocytes % % Monocytes % % Eosinophils % % Basophils % % Neutrophils # (1.3-7.7) k/uL Lymphocytes # (1.0-4.8) k/uL Monocytes # (0-1.0) k/uL Eosinophils # (0-0.7) k/uL Basophils # (0-0.2) k/uL Sodium (137-145) mmol/L Potassium (3.5-5.1) mmol/L Chloride (98-107) mmol/L Carbon Dioxide (22-30) mmol/L Anion Gap mmol/L BUN (9-20) mg/dL Creatinine (0.66-1.25) mg/dL Est GFR (CKD-EPI)AfAm (>60 ml/min/1.73 sqM) Est GFR (CKD-EPI)NonAf (>60 ml/min/1.73 sqM) Glucose (74-99) mg/dL Plasma Lactic Acid Paul 1.4 (0.7-2.0) mmol/L Calcium (8.4-10.2) mg/dL Magnesium (1.6-2.3) mg/dL Total Bilirubin (0.2-1.3) mg/dL AST (17-59) U/L ALT (4-49) U/L Alkaline Phosphatase (38-126) U/L Total Protein (6.3-8.2) g/dL Albumin (3.5-5.0) g/dL Urine Color Urine Appearance (Clear) Urine pH (5.0-8.0) Ur Specific [place] (1.001-1.035) Urine Protein (Negative) Urine Glucose (UA) (Negative) Urine Ketones (Negative) Urine Blood (Negative) Urine Nitrite (Negative) Urine Bilirubin (Negative) Urine Urobilinogen (<2.0) mg/dL Ur Leukocyte Esterase (Negative) Disposition Clinical Impression: Essential tremor Disposition: HOME SELF-CARE Condition: Fair Instructions (If sedation given, give patient instructions): Tremors (ED) Is patient prescribed a controlled substance at d/c from ED?: No Referrals: [facility],Clinic [Primary Care Provider] - 1-2 days Time of Disposition: 18:26
[2023-09-07 17:52] LABS: Appearance,Urine Clear (Clear); Basophils # (A) 0.1 k/uL (0-0.2); Basophils % (A) 1 %; Bilirubin,Urine Negative (Negative); Blood,Urine Negative (Negative); Color,Urine Colorless; Eosinophils # (A) 0.3 k/uL (0-0.7); Eosinophils % (A) 4 %; Glucose,Urine (UA) Negative (Negative); HCT 35.8 % (39.0-53.0); HGB 12.2 gm/dL (13.0-17.5); Ketones,Urine Negative (Negative); Leukocyte Esterase,Urine Negative (Negative); Lymphocytes # (A) 1.6 k/uL (1.0-4.8); Lymphocytes % (A) 20 %; MCV 94.2 fL (80.0-100.0); Mean Platelet Volume 7.5; Monocytes # (A) 0.3 k/uL (0-1.0); Monocytes % (A) 4 %; Neutrophils # (A) 5.4 k/uL (1.3-7.7); Neutrophils % (A) 70 %; Nitrite,Urine Negative (Negative); PH, Urine 6.5 (5.0-8.0); Platelet Count 208 k/uL (150-450); Protein,Urine Negative (Negative); RDW 14.7 % (11.5-15.5); Specific Gravity,Urine 1.012 (1.001-1.035); Urobilinogen,Urine <2.0 mg/dL (<2.0); WBC 7.7 k/uL (3.8-10.6)
[2023-09-07 18:05] LABS: ALT 30 U/L (4-49); AST 28 U/L (17-59); African American GFR (CKD) 89 (>60 ml/min/1.73 sqM); Albumin 3.7 g/dL (3.5-5.0); Alkaline Phosphatase 94 U/L (38-126); Anion Gap 7 mmol/L; Blood Urea Nitrogen 22 mg/dL (9-20); Calcium 9.4 mg/dL (8.4-10.2); Carbon Dioxide 25 mmol/L (22-30); Chloride 108 mmol/L (98-107); Glucose 77 mg/dL (74-99); Magnesium 2.1 mg/dL (1.6-2.3); Non-African American GFR(CKD) 77 (>60 ml/min/1.73 sqM); Potassium 4.4 mmol/L (3.5-5.1); Sodium 140 mmol/L (137-145); Total Bilirubin 0.5 mg/dL (0.2-1.3)
[2023-09-07 19:14] VITALS: BP 137/90; RESP 19; TEMP 97.6
== END 2023-09-07 20:00 | disposition home or self-care (01) ==
LOC: EC 16:41
DX: G25.0 Essential tremor (principal); R00.1 Bradycardia, unspecified; E11.9 Type 2 diabetes mellitus without complications; E78.5 Hyperlipidemia, unspecified; F32.A Depression, unspecified; F41.9 Anxiety disorder, unspecified; I25.10 Atherosclerotic heart disease of native coronary artery without angina pectoris; F17.200 Nicotine dependence, unspecified, uncomplicated; Z79.4 Long term (current) use of insulin; Z79.84 Long term (current) use of oral hypoglycemic drugs; Z95.5 Presence of coronary angioplasty implant and graft; Z79.899 Other long term (current) drug therapy
CPT/HCPCS: 36415; 80053; 81003; 83605; 83735; 85025; 93005; 99285

== ENCOUNTER 2023-09-24 01:20 | Emergency (ER) | payer OTHER, MEDICARE ==
[2023-09-24] MEDS ORDERED: ONDANSETRON 4 MG/2 ML VIAL IVP STA (01:34)
[2023-09-24] MEDS ORDERED: DIPH,PERTUS(ACELL)TETVAC-LF 0.5 ML VIAL IM ONE (01:34)
[2023-09-24] MEDS ORDERED: MORPHINE SULFATE 4 MG/ML SYRINGE IVP STA (01:34)
[2023-09-24 01:36] VITALS: RESP 18
--- NOTE | 2023-09-24 01:44 | ED ---
Fall HPI - General Chief Complaint: Fall Stated Complaint: Fall Time Seen by Provider: 09/24/23 01:32 Source: EMS Mode of arrival: EMS - History of Present Illness Initial Comments: Pete is a pleasant 83-year-old male who is brought to the emergency department today by ambulance for evaluation of injury after a fall. Patient reports he got up to use the restroom he was using his walker to walk to the closet to check for a new brief when his feet got tangled up and he fell forward striking his forehead on the ground. Patient reports he didn't lose consciousness he was able to crawl into the hallway of his fpc and slight somebody down to call an ambulance for the hospital. Patient has a history of chronic back pain due to previous injuries and reports that his entire back hurts. Patient reported to EMS that he had double vision after the fall but that has subsided at this time. Patient is not on any antiplatelet or anticoagulant medications. - Related Data Home Medications Medication Instructions Recorded Confirmed Atorvastatin [Lipitor] 40 mg PO HS 01/01/17 09/07/23 Aspirin [Adult Low Dose Aspirin EC] 81 mg PO DAILY 05/29/18 09/07/23 Cholecalciferol [Vitamin D3 (10 400 unit PO DAILY 05/29/18 09/07/23 Mcg = 400 Iu)] methocarbamoL [Robaxin] 500 mg PO BID 04/04/22 09/07/23 metFORMIN HCL 1,000 mg PO BID 06/30/22 09/07/23 Folic Acid 1 mg PO DAILY 07/17/22 09/07/23 Magnesium Oxide [Mag-Ox] 250 mg PO DAILY 07/17/22 09/07/23 DULoxetine HCL [Cymbalta] 30 mg PO BID 11/02/22 09/07/23 Multivitamins, Thera [Multivitamin 1 tab PO DAILY 11/02/22 09/07/23 (formulary)] Naproxen [Naprosyn] 375 mg PO BID 11/02/22 09/07/23 Propranolol HCl [Inderal] 60 mg PO BID 06/12/23 09/07/23 Topiramate [Topamax] 25 mg PO BID 06/12/23 09/07/23 Lactulose [Constulose] 20 gm PO DAILY PRN 08/21/23 09/07/23 Naloxone HCl [Narcan] 4 mg NASAL DIRECTED PRN 08/21/23 09/07/23 HYDROcodone/APAP 5-325MG [[place] 1 tab PO Q6HR PRN 09/07/23 09/07/23 5-325] Insulin Glargine,Hum.rec.anlog 20 units SQ DAILY 09/07/23 09/07/23 [Lantus Solostar Pen] Insulin Lispro [humaLOG Kwikpen] 10 unit SQ AC-TID 09/07/23 09/07/23 Magnesium Hydroxide [Milk of 2,400 mg PO DAILY PRN 09/07/23 09/07/23 Magnesia] traMADol HCl [Ultram] 50 mg PO Q6H 09/07/23 09/07/23 Previous Rx's Medication Instructions Recorded Gabapentin [Neurontin] 300 mg PO TID #9 cap 08/27/23 Lidocaine 5% Patch [Lidoderm 5% 2 patch TOPICAL DAILY patch 08/27/23 Patch] Sennosides [Senokot] 8.6 mg PO BID tab 08/27/23 Allergies Allergy/AdvReac Type Severity Reaction Status Date / Time No Known Allergies Allergy Verified 09/24/23 01:25 Review of Systems ROS Statement: Those systems with pertinent positive or pertinent negative responses have been documented in the HPI. ROS Other: All systems not noted in ROS Statement are negative. Past Medical History Past Medical History: Coronary Artery Disease (CAD), Diabetes Mellitus, GI Bleed, Hyperlipidemia, Osteoarthritis (OA) Additional Past Medical History / Comment(s): ESSENTIAL TREMORS, GI bleed 10/2017, diverticulitis, gallstones, some loss of use of rt arm, herniated disk, spinal stenosis History of Any Multi-Drug Resistant Organisms: None Reported Past Surgical History: Cholecystectomy Additional Past Surgical History / Comment(s): 3 cardiac stents, surgery on rt arm x 3 -fx as child, left eyelid surgery Past Anesthesia/Blood Transfusion Reactions: No Reported Reaction Date of Last Stent Placement:: 1999 Past Psychological History: Anxiety, Depression, Panic Disorder, Schizophrenia Smoking Status: Current every day smoker Past Alcohol Use History: None Reported Past Drug Use History: None Reported - Past Family History Mother Family Medical History: No Reported History family Family Medical History: Coronary Artery Disease (CAD) General Exam Head exam: Present: normocephalic, other (Abrasion to forehead) Eye exam: Present: PERRL ENT exam: Present: normal exam Neck exam: Absent: tenderness Respiratory exam: Absent: respiratory distress Cardiovascular Exam: Present: regular rate, bradycardia GI/Abdominal exam: Present: soft. Absent: distended Rectal exam: Present: deferred Extremities exam: Present: full ROM, other (superficial abrasion on right knee) Neurological exam: Present: alert Psychiatric exam: Present: normal affect, normal mood Skin exam: Present: warm, dry, abrasion (forehead and right knee) Course Vital Signs 09/24/23 09/24/23 09/24/23 01:21 02:24 03:13 Temperature 97.9 F 97.8 F Pulse Rate 54 L 52 L 56 L Respiratory 18 16 18 Rate Blood Pressure 134/75 140/78 135/75 O2 Sat by Pulse 99 98 98 Oximetry Medical Decision Making - Medical Decision Making Was pt. sent in by a medical professional or institution (, PA, [employer], urgent care, hospital, or fpc...) When possible be specific @ -Yes sent from nurse [facility] Did you speak to anyone other than the patient for history (EMS, parent, family, police, friend...)? What history was obtained from this source @ -EMS Did you review nursing and triage notes (agree or disagree)? Why? @ -I reviewed and agree with nursing and triage notes Were old charts reviewed (outside hosp., previous admission, EMS record, old EKG, old radiological studies, urgent care reports/EKG's, fpc records)? Report findings @ -No old charts were reviewed Differential Diagnosis (chest pain, altered mental status, abdominal pain women, abdominal pain men, vaginal bleeding, weakness, fever, dyspnea, syncope, headache, dizziness, GI bleed, back pain, seizure, CVA, palpatations, mental health)? @ -not applicable EKG interpreted by me (3pts min.). @ -As above X-rays interpreted by me (1pt min.). @ -None done CT interpreted by me (1pt min.). @ -No obvious bleed or mass in the brain U/S interpreted by me (1pt. min.). @ -None done What testing was considered but not performed or refused? (CT, X-rays, U/S, labs)? Why? @ -None What meds were considered but not given or refused? Why? @ -None Did you discuss the management of the patient with other professionals (professionals i.e. , PA, [employer], lab, RT, psych nurse, social science teacher, feed management advisor, teacher, booking officer, patient case manager)? Give summary @ -Dr [facility] - recommends discharge and supportive care for L1 compression fracture Was smoking cessation discussed for >3mins.? @ -No Was critical care preformed (if so, how long)? @ -No Were there social determinants of health that impacted care today? How? (Homelessness, low income, unemployed, alcoholism, drug addiction, transportation, low edu. Level, literacy, decrease access to med. care, care home, rehab)? @ -No Was there de-escalation of care discussed even if they declined (Discuss DNR or withdrawal of care, Hospice)? DNR status @ -No What co-morbidities impacted this encounter? (DM, HTN, Smoking, COPD, CAD, Cancer, CVA, ARF, Chemo, Hep., AIDS, mental health diagnosis, sleep apnea, morbid obesity)? @ -None Was patient admitted / discharged? Hospital course, mention meds given and route, prescriptions, significant lab abnormalities, going to OR and other pertinent info. @ -Discharged The patient was seen and evaluated history is obtained from the patient and EMS, patient was a ground-level fall. Patient was walking he tripped over the feet he struck his head on the ground he has pain in his low back which is worse than his chronic low back pain. CT imaging was obtained there was no acute intracranial pathology, there was a L1 compression fracture that appeared to be acute. This was discussed with Dr. Love who recommended discharge and supportive care. Patient will be discharged back to [facility] for continued care. Undiagnosed new problem with uncertain prognosis? @ -No Drug Therapy requiring intensive monitoring for toxicity (Heparin, Nitro, Insulin, Cardizem)? @ -No Were any procedures done? @ -No Diagnosis/symptom? @ -L1 compression fracture Acute, or Chronic, or Acute on Chronic? @ Acute Uncomplicated (without systemic symptoms) or Complicated (systemic symptoms)? @ -default Side effects of treatment? @ -No Exacerbation, Progression, or Severe Exacerbation? @ -No Poses a threat to life or bodily function? How? (Chest pain, [place], [place], pneumonia, PE, COPD, DKA, ARF, appy, cholecystitis, CVA, Diverticulitis, Homicidal, Suicidal, threat to staff... and all critical care pts) @ -No - EKG Data -: EKG Interpreted by Me EKG Comments: EKG interpreted by me. EKG obtained as further trouble, EKG was obtained at 125 rate is 53 rhythm is sinus bradycardia, no acute ST elevations or depressions no evidence of ischemia or infarction. Disposition Clinical Impression: Fall, Compression fracture of L1 lumbar vertebra Disposition: HOME SELF-CARE Condition: Stable Is patient prescribed a controlled substance at d/c from ED?: No Referrals: [facility],Clinic [Primary Care Provider] - 1-2 days Henry Love MD [STAFF PHYSICIAN] - 1-2 days
--- NOTE | 2023-09-24 02:15 | CT ---
EXAM: CT Head Without Intravenous Contrast CLINICAL HISTORY: ITS.REASON CT Reason: fall TECHNIQUE: Axial computed tomography images of the head/brain without intravenous contrast. CTDI is 45.2 mGy and DLP is 1179 mGy-cm. This CT exam was performed using one or more of the following dose reduction techniques: automated exposure control, adjustment of the mA and/or kV according to patient size, and/or use of iterative reconstruction technique. COMPARISON: 08/16/2023 FINDINGS: Brain: No hemorrhage or mass effect. Unchanged colloid cyst. Ventricles: No hydrocephalus. Bones/joints: Unremarkable. Soft tissues: Unremarkable. Sinuses: No air fluid level. Mastoid air cells: Clear. IMPRESSION: No acute hemorrhage, hydrocephalus, or mass effect. EXAM: CT Cervical Spine Without Intravenous Contrast CLINICAL HISTORY: ITS.REASON CT Reason: fall TECHNIQUE: Axial computed tomography images of the cervical spine without intravenous contrast. CTDI is 13.7 mGy and DLP is 393.1 mGy-cm. This CT exam was performed using one or more of the following dose reduction techniques: automated exposure control, adjustment of the mA and/or kV according to patient size, and/or use of iterative reconstruction technique. COMPARISON: 08/16/2023 FINDINGS: Vertebrae: No acute fracture. Discs/spinal canal/neural foramina: degenerative changes. Soft tissues: No prevertebral swelling. IMPRESSION: No acute fracture or subluxation.
--- NOTE | 2023-09-24 02:36 | CT ---
EXAM: CT Thoracic Spine Without Intravenous Contrast CLINICAL HISTORY: This is fall TECHNIQUE: Axial computed tomography images of the thoracic spine without intravenous contrast. CTDI is 14.45 mGy and DLP is 893 mGy-cm. This CT exam was performed using one or more of the following dose reduction techniques: automated exposure control, adjustment of the mA and/or kV according to patient size, and/or use of iterative reconstruction technique. COMPARISON: October 05, 2022 FINDINGS: Vertebrae: There is a mild to moderate compression fracture of the T12 vertebral body which was present on the prior study. No acute fracture. No misalignment. Discs/spinal canal/neural foramina: No acute findings. Extensive multilevel degenerative spur formation. No spinal canal stenosis. Soft tissues: Unremarkable. IMPRESSION: No acute findings in the thoracic spine. EXAM: CT Lumbar Spine Without Intravenous Contrast CLINICAL HISTORY: This is fall TECHNIQUE: Axial computed tomography images of the lumbar spine without intravenous contrast. CTDI is 14.45 mGy and DLP is 893 mGy-cm. This CT exam was performed using one or more of the following dose reduction techniques: automated exposure control, adjustment of the mA and/or kV according to patient size, and/or use of iterative reconstruction technique. COMPARISON: October 05, 2022 FINDINGS: Vertebrae: There is a compression fracture of the L1 vertebral body along the inferior aspect with loss of one third of height. This shows some cortical disruption and is favored to be acute. Advanced degenerative arthropathy of the facet joints at multiple levels. Discs/spinal canal/neural foramina: Advanced degenerative disc disease. No acute findings. Appearance of spinal stenosis at L3/L4 and L4/L5. Soft tissues: Unremarkable. IMPRESSION: New compression fracture of the L1 vertebral body which appears to be acute.
[2023-09-24 03:20] VITALS: BP 135/75; PULSE 56; TEMP 97.8
== END 2023-09-24 03:26 | disposition home or self-care (01) ==
LOC: EC 01:20
DX: S32.018A Other fracture of first lumbar vertebra, initial encounter for closed fracture (principal); S80.211A Abrasion, right knee, initial encounter; S00.81XA Abrasion of other part of head, initial encounter; R00.1 Bradycardia, unspecified; I25.10 Atherosclerotic heart disease of native coronary artery without angina pectoris; M19.90 Unspecified osteoarthritis, unspecified site; E11.9 Type 2 diabetes mellitus without complications; E78.5 Hyperlipidemia, unspecified; F41.9 Anxiety disorder, unspecified; F32.A Depression, unspecified; F17.200 Nicotine dependence, unspecified, uncomplicated; Z79.4 Long term (current) use of insulin; Z79.84 Long term (current) use of oral hypoglycemic drugs; Z79.82 Long term (current) use of aspirin; Z79.899 Other long term (current) drug therapy; Z23 Encounter for immunization; W01.198A Fall on same level from slipping, tripping and stumbling with subsequent striking against other object, initial encounter; Y93.01 Activity, walking, marching and hiking
CPT/HCPCS: 99285 ×2; 96374 ×2; 96375 ×2; 90471 ×2; 93005; 72128; 72125; 72131; 70450; 90715; J2270; J2405

== ENCOUNTER 2023-10-15 09:06 | Emergency (ER) | payer OTHER, MEDICARE ==
[2023-10-15] MEDS ORDERED: SODIUM CHLORIDE 0.9% 500 ML 500 ML IV ONE ×2 (09:24→10:52)
--- NOTE | 2023-10-15 09:29 | ED ---
General Adult HPI - General Chief complaint: Syncope Stated complaint: unresponsive episode Time Seen by Provider: 10/15/23 09:10 Source: patient, EMS, RN notes reviewed, old records reviewed Mode of arrival: EMS Limitations: no limitations - History of Present Illness Initial comments: This is an 83-year-old male who presents emergency department after having gone to his doctor's office and had an unresponsive episode that lasts about 2 minutes. Patient is extremely poor historian he cannot remember why he went to the doctor's or exactly what happened. Patient is unable to give me his past medical history. No family members currently with the patient. Patient denies any current pain patient denies headache patient denies any numbness weakness. Patient denies chest pain difficulty breathing shortest breath per patient denies any recent fever chills or cough per patient denies abdominal pain patient denies nausea vomiting diarrhea. - Related Data Home Medications Medication Instructions Recorded Confirmed Atorvastatin [Lipitor] 40 mg PO HS 01/01/17 09/07/23 Aspirin [Adult Low Dose Aspirin EC] 81 mg PO DAILY 05/29/18 09/07/23 Cholecalciferol [Vitamin D3 (10 400 unit PO DAILY 05/29/18 09/07/23 Mcg = 400 Iu)] methocarbamoL [Robaxin] 500 mg PO BID 04/04/22 09/07/23 metFORMIN HCL 1,000 mg PO BID 06/30/22 09/07/23 Folic Acid 1 mg PO DAILY 07/17/22 09/07/23 Magnesium Oxide [Mag-Ox] 250 mg PO DAILY 07/17/22 09/07/23 DULoxetine HCL [Cymbalta] 30 mg PO BID 11/02/22 09/07/23 Multivitamins, Thera [Multivitamin 1 tab PO DAILY 11/02/22 09/07/23 (formulary)] Naproxen [Naprosyn] 375 mg PO BID 11/02/22 09/07/23 Propranolol HCl [Inderal] 60 mg PO BID 06/12/23 09/07/23 Topiramate [Topamax] 25 mg PO BID 06/12/23 09/07/23 Lactulose [Constulose] 20 gm PO DAILY PRN 08/21/23 09/07/23 Naloxone HCl [Narcan] 4 mg NASAL DIRECTED PRN 08/21/23 09/07/23 HYDROcodone/APAP 5-325MG [[place] 1 tab PO Q6HR PRN 09/07/23 09/07/23 5-325] Insulin Glargine,Hum.rec.anlog 20 units SQ DAILY 09/07/23 09/07/23 [Lantus Solostar Pen] Insulin Lispro [humaLOG Kwikpen] 10 unit SQ AC-TID 09/07/23 09/07/23 Magnesium Hydroxide [Milk of 2,400 mg PO DAILY PRN 09/07/23 09/07/23 Magnesia] traMADol HCl [Ultram] 50 mg PO Q6H 09/07/23 09/07/23 Previous Rx's Medication Instructions Recorded Gabapentin [Neurontin] 300 mg PO TID #9 cap 08/27/23 Lidocaine 5% Patch [Lidoderm 5% 2 patch TOPICAL DAILY patch 08/27/23 Patch] Sennosides [Senokot] 8.6 mg PO BID tab 08/27/23 Allergies Allergy/AdvReac Type Severity Reaction Status Date / Time No Known Allergies Allergy Verified 09/24/23 01:25 Review of Systems ROS Statement: Those systems with pertinent positive or pertinent negative responses have been documented in the HPI. ROS Other: All systems not noted in ROS Statement are negative. Past Medical History Past Medical History: Coronary Artery Disease (CAD), Diabetes Mellitus, GI Bleed, Hyperlipidemia, Osteoarthritis (OA) Additional Past Medical History / Comment(s): ESSENTIAL TREMORS, GI bleed 10/2017, diverticulitis, gallstones, some loss of use of rt arm, herniated disk, spinal stenosis History of Any Multi-Drug Resistant Organisms: None Reported Past Surgical History: Cholecystectomy Additional Past Surgical History / Comment(s): 3 cardiac stents, surgery on rt arm x 3 -fx as child, left eyelid surgery Past Anesthesia/Blood Transfusion Reactions: No Reported Reaction Date of Last Stent Placement:: 1999 Past Psychological History: Anxiety, Depression, Panic Disorder, Schizophrenia Smoking Status: Current every day smoker Past Alcohol Use History: None Reported Past Drug Use History: None Reported - Past Family History Mother Family Medical History: No Reported History family Family Medical History: Coronary Artery Disease (CAD) General Exam - General Exam Comments Initial Comments: GENERAL: Patient is well-developed and well-nourished. Patient is nontoxic and well- hydrated and is in no acute distress. ENT: Neck is soft and supple. No significant lymphadenopathy is noted. Oropharynx is clear. Moist mucous membranes. Neck has full range of motion without eliciting any pain. EYES: The sclera were anicteric and conjunctiva were pink and moist. Extraocular movements were intact and pupils were equal round and reactive to light. Eyelids were unremarkable. PULMONARY: Unlabored respirations. Good breath sounds bilaterally. No audible rales rho nchi or wheezing was noted. CARDIOVASCULAR: There is a regular rate and rhythm without any murmurs gallops or rubs. ABDOMEN: Soft and nontender with normal bowel sounds. SKIN: Skin is clear with no lesions or rashes and otherwise unremarkable. NEUROLOGIC: Patient is alert and oriented 2. Cranial nerves II through XII are grossly intact. Motor and sensory are also intact. Normal speech, volume and content. Symmetrical smile. MUSCULOSKELETAL: Normal extremities with adequate strength and full range of motion. LYMPHATICS: No significant lymphadenopathy is noted PSYCHIATRIC: Normal psychiatric evaluation. Limitations: no limitations Course Vital Signs 10/15/23 10/15/23 09:09 10:35 Temperature 98.0 F Pulse Rate 71 Respiratory 18 Rate Blood Pressure 148/85 Blood Pressure 104/69 [Left Arm Sitting] Blood Pressure 103/74 [Left Arm Standing] Blood Pressure 134/83 [Left Arm Supine] O2 Sat by Pulse 98 Oximetry Medical Decision Making - Medical Decision Making EKG is interpreted by myself. EKG has a sinus rhythm at 66 bpm FL interval 236 dresses 93 QT interval is 374 QTC is 388. Patient's EKG shows no ST segment elevation or depression Was pt. sent in by a medical professional or institution (, PA, INDUSTRIAL TRUCK OPERATOR, urgent care, hospital, or group home...) When possible be specific @ -Patient was sent in by his primary medical care doctor Did you speak to anyone other than the patient for history (EMS, parent, family, police, friend...)? What history was obtained from this source @ -Sent him in quite a bit of a past medical history Did you review nursing and triage notes (agree or disagree)? Why? @ -I reviewed and agree with nursing and triage notes Were old charts reviewed (outside hosp., previous admission, EMS record, old EKG, old radiological studies, urgent care reports/EKG's, group home records)? Report findings @ -I reviewed prior charts apart her lab work on this patient Differential Diagnosis (chest pain, altered mental status, abdominal pain women, abdominal pain men, vaginal bleeding, weakness, fever, dyspnea, syncope, headache, dizziness, GI bleed, back pain, seizure, CVA, palpatations, mental he alth, musculoskeletal)? @ -Differential Syncope: Valvular disease, hypertrophic cardiomyopathy, pulmonary embolism, tamponade, tachycardia, bradycardia, [place], hypovolemia, hemorrhage, dissection, anemia, intracranial hemorrhage, seizure, hypoglycemia, carbon monoxide poisoning, this is not meant to be an all-inclusive list. EKG interpreted by me (3pts min.). @ -As above X-rays interpreted by me (1pt min.). @ -Chest x-ray showed no acute abnormality CT interpreted by me (1pt min.). @ -None done U/S interpreted by me (1pt. min.). @ -None done What testing was considered but not performed or refused? (CT, X-rays, U/S, labs)? Why? @ -None What meds were considered but not given or refused? Why? @ -None Did you discuss the management of the patient with other professionals (professionals i.e. , PA, INDUSTRIAL TRUCK OPERATOR, lab, RT, psych nurse, delinquency prevention social worker, automotive technology instructor, teacher, space operations officer, case picker)? Give summary @ -No Was smoking cessation discussed for >3mins.? @ -No Was critical care preformed (if so, how long)? @ -No Were there social determinants of health that impacted care today? How? (Homelessness, low income, unemployed, alcoholism, drug addiction, transportation, low edu. Level, literacy, decrease access to med. care, [facility], rehab)? @ -No Was there de-escalation of care discussed even if they declined (Discuss DNR or withdrawal of care, Hospice)? DNR status @ -No What co-morbidities impacted this encounter? (DM, HTN, Smoking, COPD, CAD, Cancer, CVA, ARF, Chemo, Hep., AIDS, mental health diagnosis, sleep apnea, morbid obesity)? @ -None Was patient admitted / discharged? Hospital course, mention meds given and route, prescriptions, significant lab abnormalities, going to OR and other pert inent info. @ -Patient's son arrived to the room and spoke with his father stated that he was at his neurologic baseline. Son stated this is been an ongoing issue for months now and is at the group home because of this issue. Son states she's been admitted to the hospital multiple times and had a full workup in the past. Patient is post have a med review with his physician and also is following up with a neurologist. Son is in agreement with the patient going back to [facility] and we will call [facility] and let them know that the patient needs to be on fall percussions Undiagnosed new problem with uncertain prognosis? @ -No Drug Therapy requiring intensive monitoring for toxicity (Heparin, Nitro, Insu jessi, Cardizem)? @ -No Were any procedures done? @ -No Diagnosis/symptom? @ -Syncope Acute, or Chronic, or Acute on Chronic? @ -Acute Uncomplicated (without systemic symptoms) or Complicated (systemic symptoms)? @ -Complicated Side effects of treatment? @ -No Exacerbation, Progression, or Severe Exacerbation? @ -No Poses a threat to life or bodily function? How? (Chest pain, [place], [place], pneumonia, PE, COPD, DKA, ARF, appy, cholecystitis, CVA, Diverticulitis, Homicidal, Suicidal, threat to staff... and all critical care pts) @ -No - Lab Data Result diagrams: 10/15/23 09:31 10/15/23 09:31 Lab Results 10/15/23 10/15/23 10/15/23 Range/Units 09:31 09:31 09:31 WBC 6.9 (3.8-10.6) k/uL RBC 3.95 L (4.30-5.90) m/uL Hgb 12.5 L (13.0-17.5) gm/dL Hct 37.5 L (39.0-53.0) % MCV 94.8 (80.0-100.0) fL MCH 31.6 (25.0-35.0) pg MCHC 33.4 (31.0-37.0) g/dL RDW 15.1 (11.5-15.5) % Plt Count 217 (150-450) k/uL MPV 7.5 Neutrophils % 75 % Lymphocytes % 15 % Monocytes % 5 % Eosinophils % 3 % Basophils % 1 % Neutrophils # 5.2 (1.3-7.7) k/uL Lymphocytes # 1.0 (1.0-4.8) k/uL Monocytes # 0.4 (0-1.0) k/uL Eosinophils # 0.2 (0-0.7) k/uL Basophils # 0.0 (0-0.2) k/uL PT 11.1 (10.0-12.5) sec INR 1.0 (<1.2) APTT 20.9 L (22.0-30.0) sec Sodium (137-145) mmol/L Potassium (3.5-5.1) mmol/L Chloride (98-107) mmol/L Carbon Dioxide (22-30) mmol/L Anion Gap mmol/L BUN (9-20) mg/dL Creatinine (0.66-1.25) mg/dL Est GFR (CKD-EPI)AfAm (>60 ml/min/1.73 sqM) Est GFR (CKD-EPI)NonAf (>60 ml/min/1.73 sqM) Glucose (74-99) mg/dL POC Glucose (mg/dL) (70-110) mg/dL POC Glu Tube Heater ID Calcium (8.4-10.2) mg/dL Total Bilirubin (0.2-1.3) mg/dL AST (17-59) U/L ALT (4-49) U/L Alkaline Phosphatase (38-126) U/L Troponin I (0.000-0.034) ng/mL Total Protein (6.3-8.2) g/dL Albumin (3.5-5.0) g/dL Urine Color Colorless Urine Appearance Clear (Clear) Urine pH 7.0 (5.0-8.0) Ur Specific [place] 1.012 (1.001-1.035) Urine Protein Negative (Negative) Urine Glucose (UA) Negative (Negative) Urine Ketones Negative (Negative) Urine Blood Negative (Negative) Urine Nitrite Negative (Negative) Urine Bilirubin Negative (Negative) Urine Urobilinogen <2.0 (<2.0) mg/dL Ur Leukocyte Esterase Negative (Negative) 10/15/23 10/15/23 10/15/23 Range/Units 09:31 09:31 09:35 WBC (3.8-10.6) k/uL RBC (4.30-5.90) m/uL Hgb (13.0-17.5) gm/dL Hct (39.0-53.0) % MCV (80.0-100.0) fL MCH (25.0-35.0) pg MCHC (31.0-37.0) g/dL RDW (11.5-15.5) % Plt Count (150-450) k/uL MPV Neutrophils % % Lymphocytes % % Monocytes % % Eosinophils % % Basophils % % Neutrophils # (1.3-7.7) k/uL Lymphocytes # (1.0-4.8) k/uL Monocytes # (0-1.0) k/uL Eosinophils # (0-0.7) k/uL Basophils # (0-0.2) k/uL PT (10.0-12.5) sec INR (<1.2) APTT (22.0-30.0) sec Sodium 139 (137-145) mmol/L Potassium 4.3 (3.5-5.1) mmol/L Chloride 107 (98-107) mmol/L Carbon Dioxide 21 L (22-30) mmol/L Anion Gap 11 mmol/L BUN 17 (9-20) mg/dL Creatinine 0.84 (0.66-1.25) mg/dL Est GFR (CKD-EPI)AfAm >90 (>60 ml/min/1.73 sqM) Est GFR (CKD-EPI)NonAf 82 (>60 ml/min/1.73 sqM) Glucose 143 H (74-99) mg/dL POC Glucose (mg/dL) 142 H (70-110) mg/dL POC Glu Tube Heater ID Alber Vera Calcium 9.5 (8.4-10.2) mg/dL Total Bilirubin 0.5 (0.2-1.3) mg/dL AST 28 (17-59) U/L ALT 30 (4-49) U/L Alkaline Phosphatase 70 (38-126) U/L Troponin I <0.012 (0.000-0.034) ng/mL Total Protein 6.4 (6.3-8.2) g/dL Albumin 4.1 (3.5-5.0) g/dL Urine Color Urine Appearance (Clear) Urine pH (5.0-8.0) Ur Specific [place] (1.001-1.035) Urine Protein (Negative) Urine Glucose (UA) (Negative) Urine Ketones (Negative) Urine Blood (Negative) Urine Nitrite (Negative) Urine Bilirubin (Negative) Urine Urobilinogen (<2.0) mg/dL Ur Leukocyte Esterase (Negative) Disposition Clinical Impression: Syncope Disposition: HOME SELF-CARE Instructions (If sedation given, give patient instructions): Syncope (ED) Is patient prescribed a controlled substance at d/c from ED?: No Referrals: [facility] [Primary Care Provider] - 1-2 days Time of Disposition: 12:48
[2023-10-15 09:40] LABS: Glucose,Whole Blood 142 mg/dL (70-110)
[2023-10-15 09:45] VITALS: RESP 18
[2023-10-15 09:59] LABS: Basophils % (A) 1 %; Eosinophils # (A) 0.2 k/uL (0-0.7); Eosinophils % (A) 3 %; HCT 37.5 % (39.0-53.0); HGB 12.5 gm/dL (13.0-17.5); Lymphocytes % (A) 15 %; MCH 31.6 pg (25.0-35.0); MCHC 33.4 g/dL (31.0-37.0); MCV 94.8 fL (80.0-100.0); Mean Platelet Volume 7.5; Monocytes # (A) 0.4 k/uL (0-1.0); Monocytes % (A) 5 %; Neutrophils # (A) 5.2 k/uL (1.3-7.7); Neutrophils % (A) 75 %; Platelet Count 217 k/uL (150-450); RBC 3.95 m/uL (4.30-5.90); RDW 15.1 % (11.5-15.5); WBC 6.9 k/uL (3.8-10.6)
--- NOTE | 2023-10-15 10:00 | XR ---
EXAMINATION TYPE: XR chest 2V DATE OF EXAM: 10/15/2023 COMPARISON: 08/21/2023 TECHNIQUE: PA and lateral views submitted. HISTORY: Unresponsive FINDINGS: Limited inspiration with subsegmental changes at the left lung base and elevated hemidiaphragm. No pn eumothorax. No sizable pleural effusion. Heart size stable. Atherosclerotic change aorta. Degenerativ e changes of the spine. IMPRESSION: Normal left basilar atelectasis favored over pneumonia.
[2023-10-15 10:07] LABS: ALT 30 U/L (4-49); AST 28 U/L (17-59); African American GFR (CKD) >90 (>60 ml/min/1.73 sqM); Albumin 4.1 g/dL (3.5-5.0); Alkaline Phosphatase 70 U/L (38-126); Anion Gap 11 mmol/L; Blood Urea Nitrogen 17 mg/dL (9-20); Calcium 9.5 mg/dL (8.4-10.2); Carbon Dioxide 21 mmol/L (22-30); Chloride 107 mmol/L (98-107); Glucose 143 mg/dL (74-99); Non-African American GFR(CKD) 82 (>60 ml/min/1.73 sqM); Potassium 4.3 mmol/L (3.5-5.1); Sodium 139 mmol/L (137-145); Total Bilirubin 0.5 mg/dL (0.2-1.3); Total Protein 6.4 g/dL (6.3-8.2)
[2023-10-15 10:13] LABS: Partial Thromboplastin Time 20.9 sec (22.0-30.0); Prothrombin Time 11.1 sec (10.0-12.5)
[2023-10-15 10:18] LABS: Appearance,Urine Clear (Clear); Bilirubin,Urine Negative (Negative); Blood,Urine Negative (Negative); Color,Urine Colorless; Glucose,Urine (UA) Negative (Negative); Ketones,Urine Negative (Negative); Leukocyte Esterase,Urine Negative (Negative); Nitrite,Urine Negative (Negative); Protein,Urine Negative (Negative); Specific Gravity,Urine 1.012 (1.001-1.035); Urobilinogen,Urine <2.0 mg/dL (<2.0)
[2023-10-15 13:32] VITALS: BP 141/84; PULSE 88; TEMP 98.9
== END 2023-10-15 14:58 | disposition home or self-care (01) ==
LOC: EC 09:06
DX: R55 Syncope and collapse (principal); E11.9 Type 2 diabetes mellitus without complications; E78.5 Hyperlipidemia, unspecified; I25.10 Atherosclerotic heart disease of native coronary artery without angina pectoris; M19.90 Unspecified osteoarthritis, unspecified site; F32.A Depression, unspecified; F41.9 Anxiety disorder, unspecified; F17.200 Nicotine dependence, unspecified, uncomplicated; Z79.4 Long term (current) use of insulin; Z79.84 Long term (current) use of oral hypoglycemic drugs; Z79.899 Other long term (current) drug therapy; Z90.49 Acquired absence of other specified parts of digestive tract; Z95.5 Presence of coronary angioplasty implant and graft
CPT/HCPCS: 36415; 71046; 80053; 81003; 84484; 85025; 85610; 85730; 93005; 96360; 99285

== ENCOUNTER → 2023-11-09 | Outpatient (CLI) | payer OTHER ==
[2023-11-09 09:05] LABS: African American GFR (CKD) 81 (>60 ml/min/1.73 sqM); Blood Urea Nitrogen 26 mg/dL (9-20); Non-African American GFR(CKD) 70 (>60 ml/min/1.73 sqM)
--- NOTE | 2023-11-09 12:43 | CT ---
CT urogram. HISTORY: Gross hematuria COMPARISON: None. TECHNIQUE: Multiple axial images were obtained through the abdomen and pelvis before and after the un eventful administration nonionic IV contrast. Multiple delayed postcontrast images were obtained acco rding to protocol. Coronal and sagittal reconstructions were generated and reviewed. FINDINGS: Lung bases are clear. On the pre-IV contrast images, there is a 7.6 mm nonobstructing left renal calcification. . There is a 7.2 mm nonobstructing right renal calcification. There is a 5 cm simple cortical cyst of the right kidney. There are surgical absence of the gallbladder. There are no focal masses within the liver, pancreas, spleen or adrenal glands and there is no organo megaly. Kidneys excrete contrast promptly and symmetrically and there is no solid renal mass, hydronephrosis or filling defect within the renal collecting systems, ureters or urinary bladder. The bowel loops are normal in caliber and there is no dilatation or obstruction. No inflammatory [place] ges are identified in the bowel wall or mesentery. There is no free intraperitoneal air or fluid. There is moderate prostatic hypertrophy. There are no focal lytic osseous lesions. There is a moderate compression fracture of L1 which may be acute. Clinical correlation recommended. There is advanced degenerative disc disease throughout the lumbar region. IMPRESSION: 1. Bilateral single nonobstructing renal calcifications. 2. No filling defects within the renal collecting systems. 3. Moderate prostatic hypertrophy. 4. Moderate compression fracture of L1 of indeterminate age. It appears to be acute and clinical lavell elation is recommended. 5. Diffuse lumbar degenerative disc disease.
== END | disposition home or self-care (01) ==
LOC: RADCTMAIN 08:22
PROVIDERS: ATTEND Urology
DX: N40.0 Benign prostatic hyperplasia without lower urinary tract symptoms (principal); N28.89 Other specified disorders of kidney and ureter; M51.36 Other intervertebral disc degeneration, lumbar region; M48.56XA Collapsed vertebra, not elsewhere classified, lumbar region, initial encounter for fracture; R31.0 Gross hematuria
CPT/HCPCS: 82565; 84520; 74178; 36415; 74400; Q9967

== ENCOUNTER → 2024-11-18 | Outpatient (CLI) | payer OTHER ==
--- NOTE | 2024-11-18 14:41 | US ---
EXAMINATION TYPE: US arterial LE single level DATE OF EXAM: 11/18/2024 2:13 PM COMPARISONS: 11/04/2022 CLINICAL INDICATION: Male, 84 years old with history of L97.509 ULCER; TECHNIQUE: Systolic pressures were taken of the upper and lower extremity arteries with ankle-brachia l indices and toe brachial indices calculated bilaterally. History of: Smoker: Current Smoker Hypertension: No Diabetic: Yes Hyperlipidemia: Yes TIA/CVA: No Previous Vascular Surgery: No CAD: No [place]: Yes, 2001 Vascular Ulcers: No Claudication: No Gangrene: No FINDINGS: Doppler Waveforms: Right: Left: Brachial Artery systolic pressure: Right: 92 Left: 102 Posterior Tibial artery systolic pressure: Right: 152 Left: 141 Dorsalis Pedis artery systolic pressure: Right: 151 Left: 148 Toe artery systolic pressure: Right: 45 Left: 39 Ankle-Brachial Indices: Right: 1.49 Left: 1.45 Toe Brachial Indices: Right: 0.44 Left: 0.38 (Normal > 0.6; Mild 0.35 - 0.59, Moderate 0.12 - 0.34, Severe <0.12) IMPRESSION: [place]: Right: Vessel hardening > 1.4, Recommendation: Refer to vascular specialist Left: Vessel hardening > 1.4, Recommendation: Refer to vascular specialist Bilateral TBI suggest mild atherosclerotic disease. Correlate clinically. [facility], , 11/18/2024 2:39 PM
== END | disposition home or self-care (01) ==
LOC: RADUSWWP 13:00
PROVIDERS: ATTEND Family Medicine
DX: L97.509 Non-pressure chronic ulcer of other part of unspecified foot with unspecified severity (principal); E11.9 Type 2 diabetes mellitus without complications; E78.5 Hyperlipidemia, unspecified
CPT/HCPCS: 93922

== ENCOUNTER 2024-12-21 09:37 | Observation (INO) | payer OTHER, MEDICARE ==
[2024-12-21 09:50] LABS: Glucose,Whole Blood 78 mg/dL (70-110)
[2024-12-21 10:14] LABS: HCT 38.2 % (39.0-53.0); HGB 12.6 gm/dL (13.0-17.5); MCH 31.2 pg (25.0-35.0); MCV 94.6 fL (80.0-100.0); Mean Platelet Volume 8.1; Platelet Count 176 k/uL (150-450); RBC 4.04 m/uL (4.30-5.90); RDW 15.7 % (11.5-15.5); WBC 6.8 k/uL (3.8-10.6)
--- NOTE | 2024-12-21 10:20 | ED ---
General Adult HPI - General Chief complaint: Chest Pain Stated complaint: chest pain Time Seen by Provider: 12/21/24 09:40 Source: patient, EMS Mode of arrival: EMS Limitations: no limitations - History of Present Illness Initial comments: Dictation was produced using [employer] dictation software. please excuse any grammatical, word or spelling errors. Chief Complaint: 84-year-old male with history of coronary artery disease presents with chest pain History of Present Illness: Patient is an 84-year-old male he has past medical history of coronary artery disease. He has had 2 heart attacks and 3 stents. This morning he had an episode of chest pressure that radiated to his left shoulder. He was diaphoretic and nauseated. Patient states that pain lasted for several minutes and then resolved on its own. Is brought here by family member. The ROS documented in this emergency department record has been reviewed and confirmed by me. Those systems with pertinent positive or negative responses have been documented in the HPI. All other systems are other negative and/or noncontributory. - Related Data Home Medications Medication Instructions Recorded Confirmed Atorvastatin [Lipitor] 40 mg PO HS 01/01/17 09/07/23 Aspirin [Adult Low Dose Aspirin EC] 81 mg PO DAILY 05/29/18 09/07/23 Cholecalciferol [Vitamin D3 (10 400 unit PO DAILY 05/29/18 09/07/23 Mcg = 400 Iu)] methocarbamoL [Robaxin] 500 mg PO BID 04/04/22 09/07/23 metFORMIN HCL 1,000 mg PO BID 06/30/22 09/07/23 Folic Acid 1 mg PO DAILY 07/17/22 09/07/23 Magnesium Oxide [Mag-Ox] 250 mg PO DAILY 07/17/22 09/07/23 DULoxetine HCL [Cymbalta] 30 mg PO BID 11/02/22 09/07/23 Multivitamins, Thera [Multivitamin 1 tab PO DAILY 11/02/22 09/07/23 (formulary)] Naproxen [Naprosyn] 375 mg PO BID 11/02/22 09/07/23 Propranolol HCl [Inderal] 60 mg PO BID 06/12/23 09/07/23 Topiramate [Topamax] 25 mg PO BID 06/12/23 09/07/23 Lactulose [Constulose] 20 gm PO DAILY PRN 08/21/23 09/07/23 Naloxone HCl [Narcan] 4 mg NASAL DIRECTED PRN 08/21/23 09/07/23 HYDROcodone/APAP 5-325MG [Romney 1 tab PO Q6HR PRN 09/07/23 09/07/23 5-325] Insulin Glargine,Hum.rec.anlog 20 units SQ DAILY 09/07/23 09/07/23 [Lantus Solostar Pen] Insulin Lispro [humaLOG Kwikpen] 10 unit SQ AC-TID 09/07/23 09/07/23 Magnesium Hydroxide [Milk of 2,400 mg PO DAILY PRN 09/07/23 09/07/23 Magnesia] traMADol HCl [Ultram] 50 mg PO Q6H 09/07/23 09/07/23 Previous Rx's Medication Instructions Recorded Gabapentin [Neurontin] 300 mg PO TID #9 cap 08/27/23 Lidocaine 5% Patch [Lidoderm 5% 2 patch TOPICAL DAILY patch 08/27/23 Patch] Sennosides [Senokot] 8.6 mg PO BID tab 08/27/23 Allergies Allergy/AdvReac Type Severity Reaction Status Date / Time No Known Allergies Allergy Verified 12/21/24 09:50 Review of Systems ROS Statement: Those systems with pertinent positive or pertinent negative responses have been documented in the HPI. ROS Other: All systems not noted in ROS Statement are negative. Past Medical History Past Medical History: Coronary Artery Disease (CAD), Diabetes Mellitus, GI Bleed, Hyperlipidemia, Osteoarthritis (OA) Additional Past Medical History / Comment(s): ESSENTIAL TREMORS, GI bleed 10/2017, diverticulitis, gallstones, some loss of use of rt arm, herniated disk, spinal stenosis History of Any Multi-Drug Resistant Organisms: None Reported Past Surgical History: Cholecystectomy Additional Past Surgical History / Comment(s): 3 cardiac stents, surgery on rt arm x 3 -fx as child, left eyelid surgery Past Anesthesia/Blood Transfusion Reactions: No Reported Reaction Date of Last Stent Placement:: 1999 Past Psychological History: Anxiety, Depression, Panic Disorder, Schizophrenia Smoking Status: Current every day smoker Past Alcohol Use History: None Reported Past Drug Use History: None Reported - Past Family History Mother Family Medical History: No Reported History family Family Medical History: Coronary Artery Disease (CAD) General Exam - General Exam Comments Initial Comments: PHYSICAL EXAM: General Impression: Alert and oriented x3, not in acute distress HEENT: Normocephalic atraumatic, extra-ocular movements intact, pupils equal and reactive to light bilaterally, mucous membranes moist. Cardiovascular: Heart regular rate and rhythm Chest: Able to complete full sentences, no retractions, no tachypnea Abdomen: abdomen soft, non-tender, non-distended, no organomegaly Musculoskeletal: Pulses present and equal in all extremities, no peripheral edema Motor: no focal deficits noted Neurological: CN II-XII grossly intact, no focal motor or sensory deficits noted Skin: Intact with no visualized rashes Psych: Normal affect and mood Limitations: no limitations Course Vital Signs 12/21/24 09:40 Temperature 97.8 F Pulse Rate 53 L Respiratory 16 Rate Blood Pressure 128/73 O2 Sat by Pulse 97 Oximetry EKG Findings - EKG Comments: EKG Findings:: My EKG interpretation: Ventricular rate 50, sinus bradycardia,. 179, QRS 104, QTc 400. No IA prolongation, no QTC prolongation, no ST or T-wave changes noted. Overall, this EKG is unremarkable Medical Decision Making - Medical Decision Making Was pt. sent in by a medical professional or institution (, PA, PROPERTY MASTER, urgent ca re, hospital, or half-way...) When possible be specific @ -No Did you speak to anyone other than the patient for history (EMS, parent, family, police, friend...)? What history was obtained from this source @ -Son as described above Did you review nursing and triage notes (agree or disagree)? Why? @ -I reviewed and agree with nursing and triage notes Were old charts reviewed (outside hosp., previous admission, EMS record, old EKG, old radiological studies, urgent care reports/EKG's, half-way records)? Report findings @ -No old charts were reviewed Differential Diagnosis (chest pain, altered mental status, abdominal pain women, abdominal pain men, vaginal bleeding, musculoskeletal, weakness, fever, dyspnea, syncope, headache, dizziness, GI bleed, back pain, seizure, CVA, palp atations, mental health)? @ -Differential Chest Pain: Stable Angina, Unstable Angina, STEMI, NSTEMI Aortic Dissection, Pneumothorax, Musculoskeletal, Esophageal Spasm GERD, Cholecystitis, Pancreatitis, Zoster, this is not meant to be an all-inclusive list. EKG interpreted by me (3pts min.). @ -See above X-rays interpreted by me (1pt min.). @ -Chest x-ray is nonacute CT interpreted by me (1pt min.). @ -None done U/S interpreted by me (1pt. min.). @ -None done What testing was considered but not performed or refused? (CT, X-rays, U/S, labs)? Why? @ -None What meds were considered but not given or refused? Why? @ -None Was smoking cessation discussed for >3mins.? @ -No Were there social determinants of health that impacted care today? How? (Homelessness, low income, unemployed, alcoholism, drug addiction, transportation, low edu. Level, literacy, decrease access to med. care, penitentiary, rehab)? @ -No Was there de-escalation of care discussed even if they declined (Discuss DNR or withdrawal of care, Hospice)? DNR status @ -No What co-morbidities impacted this encounter? (DM, HTN, Smoking, COPD, CAD, Cancer, CVA, ARF, Chemo, Hep., AIDS, mental health diagnosis, sleep apnea, morb id obesity)? @ -Coronary artery disease Was patient admitted / discharged? Hospital course, mention meds given and route, prescriptions, significant lab abnormalities, going to OR and other pertinent info. @ -84-year-old male presents with chest pain symptoms concerning for acute coronary syndrome. Vital signs upon arrival are within acceptable limits. EKG shows no STEMI or signs of ischemia. Labs are unremarkable Trope is normal. Patient has elevated heart score will be admitted with consultation cardiology. Case discussed with hospitalist for admission Did you discuss the management of the patient with other professionals (professionals i.e. , PA, PROPERTY MASTER, lab, RT, psych nurse, social professionals, injection molding machine setter, teacher, supervisor dog license officer, case operator)? Give summary @ -See above Was critical care preformed (if so, how long)? @ -No Undiagnosed new problem with uncertain prognosis? @ -No Drug Therapy requiring intensive monitoring for toxicity (Heparin, Nitro, Insulin, Cardizem)? @ -No Were any procedures done? @ -No Diagnosis/symptom? Acute, or Chronic, or Acute on Chronic? Uncomplicated (without systemic symptoms) or Complicated (systemic symptoms)? @ -Chest pain Side effects of treatment? @ -No Exacerbation, Progression, or Severe Exacerbation? @ -No Poses a threat to life or bodily function? How? (Chest pain, [place], [place], pneumonia, PE, COPD, DKA, ARF, appy, cholecystitis, CVA, Diverticulitis, Homicidal, Suicidal, threat to staff... and all critical care pts) @ -yes - Lab Data Result diagrams: 12/21/24 10:03 12/21/24 10:03 Lab Results 12/21/24 12/21/24 12/21/24 Range/Units 09:48 10:03 10:03 WBC 6.8 (3.8-10.6) k/uL RBC 4.04 L (4.30-5.90) m/uL Hgb 12.6 L (13.0-17.5) gm/dL Hct 38.2 L (39.0-53.0) % MCV 94.6 (80.0-100.0) fL MCH 31.2 (25.0-35.0) pg MCHC 33.0 (31.0-37.0) g/dL RDW 15.7 H (11.5-15.5) % Plt Count 176 (150-450) k/uL MPV 8.1 Neutrophils % (Manual) 74 % Lymphocytes % (Manual) 20 % Monocytes % (Manual) 2 % Eosinophils % (Manual) 4 % Neutrophils # (Manual) 5.03 (1.3-7.7) k/uL Lymphocytes # (Manual) 1.36 (1.0-4.8) k/uL Monocytes # (Manual) 0.14 (0-1.0) k/uL Eosinophils # (Manual) 0.27 (0-0.7) k/uL Nucleated RBCs 0 (0-0) /100 WBC Manual Slide Review Performed Poikilocytosis (manual Present PT 11.7 (10.0-12.5) sec INR 1.1 (<1.2) APTT 23.9 (22.0-30.0) sec Sodium (137-145) mmol/L Potassium (3.5-5.1) mmol/L Chloride (98-107) mmol/L Carbon Dioxide (22-30) mmol/L Anion Gap mmol/L BUN (9-20) mg/dL Creatinine (0.66-1.25) mg/dL Est GFR (CKD-EPI)AfAm (>60 ml/min/1.73 sqM) Est GFR (CKD-EPI)NonAf (>60 ml/min/1.73 sqM) Glucose (74-99) mg/dL POC Glucose (mg/dL) 78 (70-110) mg/dL POC Glu Release Manager ID Placido Mahajan Calcium (8.4-10.2) mg/dL Magnesium (1.6-2.3) mg/dL Total Bilirubin (0.2-1.3) mg/dL AST (17-59) U/L ALT (4-49) U/L Alkaline Phosphatase (38-126) U/L Troponin I (0.000-0.034) ng/mL NT-Pro-B Natriuret Pep pg/mL Total Protein (6.3-8.2) g/dL Albumin (3.5-5.0) g/dL 12/21/24 12/21/24 12/21/24 Range/Units 10:03 10:03 10:44 WBC (3.8-10.6) k/uL RBC (4.30-5.90) m/uL Hgb (13.0-17.5) gm/dL Hct (39.0-53.0) % MCV (80.0-100.0) fL MCH (25.0-35.0) pg MCHC (31.0-37.0) g/dL RDW (11.5-15.5) % Plt Count (150-450) k/uL MPV Neutrophils % (Manual) % Lymphocytes % (Manual) % Monocytes % (Manual) % Eosinophils % (Manual) % Neutrophils # (Manual) (1.3-7.7) k/uL Lymphocytes # (Manual) (1.0-4.8) k/uL Monocytes # (Manual) (0-1.0) k/uL Eosinophils # (Manual) (0-0.7) k/uL Nucleated RBCs (0-0) /100 WBC Manual Slide Review Poikilocytosis (manual PT (10.0-12.5) sec INR (<1.2) APTT (22.0-30.0) sec Sodium 138 (137-145) mmol/L Potassium 4.5 (3.5-5.1) mmol/L Chloride 109 H (98-107) mmol/L Carbon Dioxide 22 (22-30) mmol/L Anion Gap 7 mmol/L BUN 19 (9-20) mg/dL Creatinine 0.88 (0.66-1.25) mg/dL Est GFR (CKD-EPI)AfAm >90 (>60 ml/min/1.73 sqM) Est GFR (CKD-EPI)NonAf 80 (>60 ml/min/1.73 sqM) Glucose 76 (74-99) mg/dL POC Glucose (mg/dL) 84 (70-110) mg/dL POC Glu Release Manager ID Olivia Miller Calcium 9.1 (8.4-10.2) mg/dL Magnesium 2.2 (1.6-2.3) mg/dL Total Bilirubin 0.8 (0.2-1.3) mg/dL AST 23 (17-59) U/L ALT 24 (4-49) U/L Alkaline Phosphatase 55 (38-126) U/L Troponin I <0.012 (0.000-0.034) ng/mL NT-Pro-B Natriuret Pep 153 pg/mL Total Protein 6.2 L (6.3-8.2) g/dL Albumin 4.0 (3.5-5.0) g/dL Disposition Clinical Impression: Chest pain Disposition: ADMITTED IP TO THIS HOSP Condition: Fair Referrals: Vinod Ames DO [Primary Care Provider] - 1-2 days Decision Time: 10:51
--- NOTE | 2024-12-21 10:23 | XR ---
EXAMINATION TYPE: XR chest 2V DATE OF EXAM: 12/21/2024 10:11 AM COMPARISON: 10/15/2023 CLINICAL INDICATION: Male, 84 years old with history of Chest Pain, TECHNIQUE: XR chest 2V view(s) obtained. FINDINGS: The heart size is normal. The pulmonary vasculature is normal. There may be a nodular density within the lateral right lung measuring 1.0 cm. This may be an interva l change. Consider follow-up with CT. There is some mild right posterior infiltrate. Correlate for subsegmental atelectasis. IMPRESSION: 1. No 1 cm nodule right mid lung periphery. 2. Suspected subsegmental atelectasis right base 3. No acute pulmonary process [facility], , 12/21/2024 10:21 AM
[2024-12-21 10:27] LABS: ALT 24 U/L (4-49); AST 23 U/L (17-59); African American GFR (CKD) >90 (>60 ml/min/1.73 sqM); Alkaline Phosphatase 55 U/L (38-126); Anion Gap 7 mmol/L; Blood Urea Nitrogen 19 mg/dL (9-20); Calcium 9.1 mg/dL (8.4-10.2); Carbon Dioxide 22 mmol/L (22-30); Chloride 109 mmol/L (98-107); Glucose 76 mg/dL (74-99); INR 1.1 (<1.2); Magnesium 2.2 mg/dL (1.6-2.3); Non-African American GFR(CKD) 80 (>60 ml/min/1.73 sqM); Partial Thromboplastin Time 23.9 sec (22.0-30.0); Potassium 4.5 mmol/L (3.5-5.1); Prothrombin Time 11.7 sec (10.0-12.5); Sodium 138 mmol/L (137-145); Total Bilirubin 0.8 mg/dL (0.2-1.3); Total Protein 6.2 g/dL (6.3-8.2)
[2024-12-21 10:36] LABS: NT-Pro-B-Type Natriuretic Pept 153 pg/mL
[2024-12-21] MEDS: ASPIRIN 81 MG PO STA (10:38)
[2024-12-21 10:45] LABS: Glucose,Whole Blood 84 mg/dL (70-110)
[2024-12-21] MEDS ORDERED: NITROGLYCERIN SL TABS 0.4 MG TAB SUBLINGUAL PRN (10:47)
[2024-12-21 10:49] LABS: Eosinophils # (M) 0.27 k/uL (0-0.7); Lymphocytes # (M) 1.36 k/uL (1.0-4.8); Monocytes # (M) 0.14 k/uL (0-1.0); Neutrophils # (M) 5.03 k/uL (1.3-7.7); Neutrophils % (M) 74 %; Nucleated Red Blood Cells 0 /100 WBC (0-0); Total Cells Counted 100
[2024-12-21 10:50] LABS: Poikilocytosis (M) Present
--- NOTE | 2024-12-21 12:45 | P.HPIM ---
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 Colon, vascular surgeon for management. He presented to the emergency department with a chief complaint of chest pain. Patient reports that he got up this morning around 4:30 AM and found his toilet to be frozen. He reports he worked on it a bit and poored some antifreeze down into the toilet then went and sat in his recliner. Patient reports shortly after sitting down he began feeli ng an intense heaviness and pressure to his midsternal and left anterior chest followed by a cold sensation and significant sweating and feeling as though his heart rate and breathing became very very slow. . Patient reports he was alarmed because this is exactly how he felt when he had his first stent placed in 1997 as well as the same way he felt when he had his nedt two stents placed in 1999, so he called his son followed by EMS for transfer to the hospital. He denies having any headache, lightheadedness, dizziness palpitations, shortness of breath, cough or congestion, nausea or vomiting, or experiencing any numbness/tingling/weakness/swelling in his extremities. Upon arrival to our facility, patient underwent evaluation in the emergency department. Vital signs upon arrival show blood pressure 128/73, heart rate 53, respiratory rate 16, temp 97.8 F, and SpO2 of 97% on room air. EKG was completed showing sinus bradycardia at 50 bpm nonspecific T wave abnormalities. Chest x-ray completed showing a 1 cm nodule right midlung and subsegmental atelectasis right lower lung base. Labs completed and reviewed. CBC showing mild normocytic anemia with hemoglobin of 12.6. Coagulation profile normal findings. BMP showing hyperchloremia with chloride of 109 otherwise normal findings. Blood glucose 76. Magnesium 2.2. Liver profile unremarkable. Troponin was negative at less than 0.012. Patient admitted under services with consultation to cardiology. Review of systems: Pertinent positives and negatives as discussed in HPI, a complete review of systems was performed and all other systems are negative. Physical exam: Vital signs reviewed and stable. General: Nontoxic, no distress and appears stated age. Derm: Skin warm and dry, normal coloration for ethnicity.. 3 small ulcers left foot the distal portion of second, third, and fourth toes Head: Atraumatic, normocephalic and symmetric. Eyes: EOM's intact, no lid lag, and anicteric sclera Mouth: no lip lesions, mucus membranes moist Cardiovascular: Bradycardic rate regular rhythm with normal S1S2, systolic murmur, positive posterior tibial pulses bilaterally Lungs: Respirations even, regular, and unlabored on room air. Lungs CTA bilaterally, no rhonchi, no rales, no wheezing, and no accessory muscle usage. Abdominal: soft, nontender to palpation, no guarding, no appreciable organomegaly Ext:. No gross muscle atrophy, no edema, no contractures. Movement and sensation intact. Bilateral feet cool to touch and Sab[place] discoloration, posterior tibial and pedal pulses palpated and location marked with pen at bedside. Patient does have delayed capillary refill dorsal foot approximately 4 seconds. Neuro: Speech clear, face symmetrical and CN II-XII grossly intact with no noted focal neuro deficits Psych: Alert and oriented to person, place, time, and situation. Appropriate and pleasant affect. Assessment and Plan of Care: Chest pain, rule out acute coronary event Sinus bradycardia History of CAD status post stenting Hyperlipidemia -Cardiology following, discussed plan of care with electromechanical technician and cardiac PRODUCT SAFETY LEAD plans for Lexiscan stress test tomorrow. -Telemetry monitoring -Trend troponins -Cardiac diet, NPO at midnight -Aspirin 81 mg daily and atorvastatin 40 mg daily. -Lipid profile with a.m. labs. -Echocardiogram Raynaud's disease with small ulcerations left foot distal second, third, and fourth toes -Follows Dr. Colon outpatient for management. Called and discussed case in detail with Dr. Colon. -Discussed with vascular surgeon, patient started on nifedipine 10 mg 3 times daily. -Maintain fall precautions. Iiz-[id number] diabetes mellitus with diabetic peripheral neuropathy -Hold metformin and patient placed on glycemic protocol with NovoLog sliding scale. Follow-up on hemoglobin A1c results. Data and imaging reviewed: As stated above in HPI The patient is admitted with an anticipated less than 2 midnight stay for evalua tion of chest pain CODE STATUS: Code DVT prophylaxis: Lovenox Discussed with: Patient, patient's son at bedside, ED physician, electromechanical technician and cardiac PRODUCT SAFETY LEAD. Anticipated discharge date: Pending clinical course Anticipated discharge place: Home Patient was seen independently by Nurse Practitioner. This document was prepared using [employer] dictation software. Please allow for errors in screening tech while rare they do occur. Wilmer Brewer NP rendered care for this patient independently, reviewed the f indings and plan as documented in the note above and agree with plan. I did not physically speak with or examine the patient on this date. Past Medical History Past Medical History: Coronary Artery Disease (CAD), Diabetes Mellitus, GI Bleed, Hyperlipidemia, Osteoarthritis (OA) Additional Past Medical History / Comment(s): ESSENTIAL TREMORS, GI bleed 10/2017, diverticulitis, gallstones, some loss of use of rt arm, herniated disk, spinal stenosis History of Any Multi-Drug Resistant Organisms: None Reported Past Surgical History: Cholecystectomy Additional Past Surgical History / Comment(s): 3 cardiac stents, surgery on rt arm x 3 -fx as child, left eyelid surgery Past Anesthesia/Blood Transfusion Reactions: No Reported Reaction Date of Last Stent Placement:: 1999 Past Psychological History: Anxiety, Depression, Panic Disorder, Schizophrenia Smoking Status: Current every day smoker Past Alcohol Use History: None Reported Past Drug Use History: None Reported - Past Family History Mother Family Medical History: No Reported History family Family Medical History: Coronary Artery Disease (CAD) Medications and Allergies Home Medications Medication Instructions Recorded Confirmed Type Atorvastatin [Lipitor] 40 mg PO HS 01/01/17 09/07/23 History Aspirin [Adult Low Dose Aspirin EC] 81 mg PO DAILY 05/29/18 12/21/24 History methocarbamoL [Robaxin] 500 mg PO BID 04/04/22 09/07/23 History metFORMIN HCL 1,000 mg PO BID 06/30/22 09/07/23 History Folic Acid 1 mg PO DAILY 07/17/22 12/21/24 History Cholecalciferol [Vitamin D3 (25 25 mcg PO DAILY 12/21/24 12/21/24 History Mcg = 1000 Iu)] Allergies Allergy/AdvReac Type Severity Reaction Status Date / Time No Known Allergies Allergy Verified 12/21/24 12:12 Physical Exam Vitals: Vital Signs Temp Pulse Resp BP Pulse Ox 12/21/24 10:47 50 L 18 125/81 95 12/21/24 09:40 97.8 F 53 L 16 128/73 97 Intake and Output 12/20/24 12/21/24 12/21/24 22:59 06:59 14:59 Other: Weight 104.326 kg Results CBC & Chem 7: 12/21/24 10:03 12/21/24 10:03 Labs: Abnormal Lab Results - Last 24 Hours (Table) 12/21/24 12/21/24 Range/Units 10:03 10:03 RBC 4.04 L (4.30-5.90) m/uL Hgb 12.6 L (13.0-17.5) gm/dL Hct 38.2 L (39.0-53.0) % RDW 15.7 H (11.5-15.5) % Chloride 109 H (98-107) mmol/L Total Protein 6.2 L (6.3-8.2) g/dL
--- NOTE | 2024-12-21 12:47 | P.CRDCN ---
History of Present Illness Consult date: 12/21/24 Requesting physician: Jahaira Chaney Reason for Consult (text): chest pain Chief complaint: chest discomfort, nausea, diaphoresis History of present illness: This is a pleasant 84-year-old male patient previously followed at the [facility] in [place] for cardiology but has not been followed regularly in several years. With past medical history of CAD with prior stenting in 1997 and 1999 while in [place], PAD followed by Dr. Colon, diabetes mellitus type 2, peripheral neuropathy, chronic back pain, hypertension and hyperlipidemia. Presented to the hospital with complaints of chest discomfort. The patient developed an episode of a cold discomfort in his chest as well as nausea and diaphoresis. This somewhat reminded him of what he experienced prior to his stenting. He complains of feeling his breathing is shallow. He denies any orthopnea or PND. He complains of some leg pain with ambulation and again follows regularly with Dr. Colon. He has ulcers on his toes. He follows regularly with podiatry. He has had no palpitations, dizziness or syncope. Diagnostics -EKG: Sinus bradycardia with nonspecific ST-T wave abnormalities -Chest x-ray: 1 cm nodule right midlung periphery, suspected subsegmental atelectasis right base, no acute pulmonary process -Laboratory studies: Hemoglobin 12.6, sodium 138, potassium 4.5, BUN 19, creatinine 0.88, troponin less than 0.012 x 1, NT proBNP 153 -Home cardiac medications: Aspirin 81 mg daily and atorvastatin 40 mg p.o. nightly -Prior stress test: At least 4 years ago and told to be unremarkable according to the patient -Echocardiogram: May 2023 revealed normal LV systolic function -Cardiac catheterization: No recent cardiac catheterization Review Of Systems: At the time of my exam: CONSTITUTIONAL: Denies fever or chills. HEENT: Denies blurred vision, vision changes. CARDIOVASCULAR: Denies chest pain. Denies orthopnea. Denies PND. Denies palpitations, dizziness, or syncope. RESPIRATORY: Denies shortness of breath, wheezing, or cough. Denies hemoptysis. Complains of shallow breathing GASTROINTESTINAL: Denies abdominal pain. Denies nausea or vomiting. Denies bleeding. HEMATOLOGIC: Denies bleeding disorders. GENITOURINARY: Denies hematuria. SKIN: Denies puritis. Denies rash. PHYSICAL EXAMINATION: This is a 84-year-old male in no apparent distress at the time of my examination. VITAL SIGNS: Reviewed. HEENT: Head is atraumatic, normocephalic. Pupils are equal, round. Sclerae anicteric. Conjunctivae are clear. Mucous membranes of the mouth are moist. Neck is supple. There is no elevated jugular venous pressure. No carotid bruit is heard. CHEST EXAMINATION: Clear to auscultation bilaterally. No wheezes rales or rhonchi. Respirations even and nonlabored. HEART EXAMINATION: Heart regular, positive S1 and S2. No S3. No S4. Systolic murmur. ABDOMEN: Soft, nontender. Bowel sounds are heard. No organomegaly noted. EXTREMITIES: Diminished peripheral pulses with no evidence of peripheral edema and no calf tenderness noted. Right foot second third and fourth toes with evidence of ulcers. NEUROLOGIC EXAMINATION: Patient is awake, alert and oriented x3. Assessment: 1. Chest discomfort, troponin negative x 1 with no acute ischemic changes noted on EKG 2. CAD with prior PCI 3. Diabetes mellitus type 2 4. CAD Plan: From cardiology's perspective continue to trend the troponins. Will obtain a 2D echo with Doppler study to assess cardiac structure and function. Keep the patient n.p.o. after midnight patient will undergo Lexiscan MPI in the morning. Further recommendations to follow. Thank you kindly for this consultation. Nurse practitioner note has been reviewed, I agree with documented findings and plan of care. Patient was seen and examined. Past Medical History Past Medical History: Coronary Artery Disease (CAD), Diabetes Mellitus, GI B leed, Hyperlipidemia, Osteoarthritis (OA) Additional Past Medical History / Comment(s): ESSENTIAL TREMORS, GI bleed 10/2017, diverticulitis, gallstones, some loss of use of rt arm, herniated disk, spinal stenosis History of Any Multi-Drug Resistant Organisms: None Reported Past Surgical History: Cholecystectomy Additional Past Surgical History / Comment(s): 3 cardiac stents, surgery on rt arm x 3 -fx as child, left eyelid surgery Past Anesthesia/Blood Transfusion Reactions: No Reported Reaction Date of Last Stent Placement:: 1999 Past Psychological History: Anxiety, Depression, Panic Disorder, Schizophrenia Smoking Status: Current every day smoker Past Alcohol Use History: None Reported Past Drug Use History: None Reported - Past Family History Mother Family Medical History: No Reported History family Family Medical History: Coronary Artery Disease (CAD) Medications and Allergies Home Medications Medication Instructions Recorded Confirmed Type Atorvastatin [Lipitor] 40 mg PO HS 01/01/17 09/07/23 History Aspirin [Adult Low Dose Aspirin EC] 81 mg PO DAILY 05/29/18 12/21/24 History methocarbamoL [Robaxin] 500 mg PO BID 04/04/22 09/07/23 History metFORMIN HCL 1,000 mg PO BID 06/30/22 09/07/23 History Folic Acid 1 mg PO DAILY 07/17/22 12/21/24 History Cholecalciferol [Vitamin D3 (25 25 mcg PO DAILY 12/21/24 12/21/24 History Mcg = 1000 Iu)] Allergies Allergy/AdvReac Type Severity Reaction Status Date / Time No Known Allergies Allergy Verified 12/21/24 12:12 Physical Exam Vitals: Vital Signs Temp Pulse Resp BP Pulse Ox 12/21/24 10:47 50 L 18 125/81 95 12/21/24 09:40 97.8 F 53 L 16 128/73 97 Intake and Output 12/20/24 12/21/24 12/21/24 22:59 06:59 14:59 Other: Weight 104.326 kg Results 12/21/24 10:03 12/21/24 10:03 Cardiac Enzymes 12/21/24 12/21/24 Range/Units 10:03 10:03 AST 23 (17-59) U/L Troponin I <0.012 (0.000-0.034) ng/mL Coagulation 12/21/24 Range/Units 10:03 PT 11.7 (10.0-12.5) sec APTT 23.9 (22.0-30.0) sec CBC 12/21/24 Range/Units 10:03 WBC 6.8 (3.8-10.6) k/uL RBC 4.04 L (4.30-5.90) m/uL Hgb 12.6 L (13.0-17.5) gm/dL Hct 38.2 L (39.0-53.0) % Plt Count 176 (150-450) k/uL Comprehensive Metabolic Panel 12/21/24 Range/Units 10:03 Sodium 138 (137-145) mmol/L Potassium 4.5 (3.5-5.1) mmol/L Chloride 109 H (98-107) mmol/L Carbon Dioxide 22 (22-30) mmol/L BUN 19 (9-20) mg/dL Creatinine 0.88 (0.66-1.25) mg/dL Glucose 76 (74-99) mg/dL Calcium 9.1 (8.4-10.2) mg/dL AST 23 (17-59) U/L ALT 24 (4-49) U/L Alkaline Phosphatase 55 (38-126) U/L Total Protein 6.2 L (6.3-8.2) g/dL Albumin 4.0 (3.5-5.0) g/dL Current Medications Generic Name Dose Route Start Last Admin Trade Name Freq PRN Reason Stop Dose Admin Aspirin 325 mg 12/22/24 09:00 Aspirin 325 Mg Tab PO DAILY DAGMAR Nitroglycerin 0.4 mg 12/21/24 10:47 Nitroglycerin Sl Tabs 0.4 Mg Tab SUBLINGUAL Q5M PRN Chest Pain Intake and Output 12/20/24 12/21/24 12/21/24 22:59 06:59 14:59 Other: Weight 104.326 kg Patient Weight 12/22/24 06:59 Weight 104.326 kg 12/21/24 10:03 12/21/24 10:03
[2024-12-21] MEDS ORDERED: DEXTROSE 50% SYRINGE 50 ML IVP PRN ×2 (14:49)
[2024-12-21 15:21] LABS: Glucose,Whole Blood 212 mg/dL (70-110)
[2024-12-21] MEDS: NIFEdipine 10 MG CAP PO SCH (17:13)
--- NOTE | 2024-12-21 17:17 | CT ---
EXAMINATION TYPE: CT brain wo con DATE OF EXAM: 12/21/2024 5:02 PM COMPARISON: 09/24/2023. CLINICAL INDICATION: Male, 84 years old with history of hand tremors muscle spasms, hand tremors TECHNIQUE: Brain: Axial CT images of the brain were obtained with coronal and sagittal reformats created and rev iewed. Contrast used: None. Oral contrast used: None. CT DLP: 1236.6 mGycm, Automated exposure control for dose reduction was used. FINDINGS: Brain: Extra-axial spaces: No abnormal extra-axial fluid collections. Ventricular system: Dilatation in proportion to cerebral atrophy., correlate cyst measuring 8 mm umang lar prior in 2022. Cerebral parenchyma: Cerebral atrophy. No acute intraparenchymal hemorrhage or mass effect. The agudelo -white junction is well differentiated. Scattered hypoattenuating areas are seen within the white mat ter. Cerebellum: Unremarkable. Mass effect: No evidence of midline shift. Intracranial vasculature: Atherosclerotic calcifications of the intracranial vessels. Soft tissues: Normal. Calvarium/osseous structures: No depressed skull fracture. Paranasal sinuses and mastoid air cells: Mild scattered paranasal sinus disease. Visualized orbits: Orbital contents are intact. IMPRESSION: 1. No acute intracranial process. 2. Nonspecific white matter changes, likely secondary to chronic small vessel ischemic disease. 3. 8 mm colloid cyst, similar to prior in 2022. [facility], , 12/21/2024 5:14 PM
[2024-12-21 17:23] LABS: Glucose,Whole Blood 131 mg/dL (70-110)
[2024-12-21] MEDS: INSULIN LISPRO (HumaLOG) 100 UNIT/ML 10 mL VL SQ SCH (18:15)
[2024-12-21 20:01] LABS: Glucose,Whole Blood 179 mg/dL (70-110)
[2024-12-21] MEDS: ATORVASTATIN 40 MG TAB PO SCH (20:14)
[2024-12-21] MEDS: methocarbamoL 500 MG TAB PO SCH (20:14)
[2024-12-22 05:40] LABS: Glucose,Whole Blood 132 mg/dL (70-110)
[2024-12-22] MEDS ORDERED: AMINOPHYLLINE 500 MG/20 ML VIAL IV PRN (06:00)
[2024-12-22] MEDS ORDERED: REGADENOSON 0.4 MG/5 ML SYRINGE IV PRN (06:00)
[2024-12-22] MEDS ORDERED: CAFFEINE CITRATE 60 MG/3 ML VIAL IV PRN (06:00)
[2024-12-22] MEDS ORDERED: REGADENOSON 0.4 MG/5 ML SYRINGE IV ONE (08:00)
[2024-12-22 08:38] LABS: HCT 39.3 % (39.6-50.0); HGB 12.4 g/dL (13.0-17.0); MCH 30.7 pg (27.0-32.0); MCHC 31.6 g/dL (32.0-37.0); MCV 97.3 FL (80.0-97.0); Mean Platelet Volume 10.1 FL (9.5-12.2); NRBC Per 100 WBC 0 X 10*3/uL (0.00-0.01); Platelet Count 193 X 10*3/uL (140-440); RBC 4.04 X 10*6/uL (4.40-5.60); RDW 15.1 % (11.5-14.5); WBC 7.58 X 10*3/uL (4.50-10.00)
[2024-12-22 08:45] LABS: ALT 23 U/L (10-49); AST 22 U/L (14-35); Albumin 4.1 g/dL (3.8-4.9); Albumin/Globulin Ratio 2.05 Ratio (1.60-3.17); Alkaline Phosphatase 63 U/L (41-126); Blood Urea Nitrogen 17.7 mg/dL (9.0-27.0); Calcium 9.1 mg/dL (8.7-10.3); Carbon Dioxide 21.4 mmol/L (21.6-31.8); Chloride 107 mmol/L (96-109); Chol/HDL Ratio 3.55 Ratio; Glucose 131 mg/dL (70-110); LDL Cholesterol,Calculated 59.6 mg/dL (0.0-131.0); Potassium 4.2 mmol/L (3.5-5.5); Sodium 140 mmol/L (135-145); Total Bilirubin 0.4 mg/dL (0.3-1.2); Total Protein 6.1 g/dL (6.2-8.2)
[2024-12-22] MEDS ORDERED: ASPIRIN 325 MG TAB PO SCH (09:00)
[2024-12-22 09:03] LABS: Magnesium 2.1 mg/dL (1.5-2.4)
--- NOTE | 2024-12-22 10:43 | P.PN ---
Subjective HISTORY OF PRESENT ILLNESS: This is a pleasant 84-year-old male patient previously followed at the [facility] in [place] for cardiology but has not been followed regularly in several years. With past medical history of CAD with prior stenting in 1997 and 1999 while in [place], PAD followed by Dr. Colon, diabetes mellitus type 2, peripheral neurop athy, chronic back pain, hypertension and hyperlipidemia. Presented to the hospital with complaints of chest discomfort. The patient developed an episode of a cold discomfort in his chest as well as nausea and diaphoresis. This somewhat reminded him of what he experienced prior to his stenting. He complains of feeling his breathing is shallow. He denies any orthopnea or PND. He complains of some leg pain with ambulation and again follows regularly with Dr. Colon. He has ulcers on his toes. He follows regularly with podiatry. He has had no palpitations, dizziness or syncope. Diagnostics -EKG: Sinus bradycardia with nonspecific ST-T wave abnormalities -Chest x-ray: 1 cm nodule right midlung periphery, suspected subsegmental atelectasis right base, no acute pulmonary process -Laboratory studies: Hemoglobin 12.6, sodium 138, potassium 4.5, BUN 19, creatinine 0.88, troponin less than 0.012 x 1, NT proBNP 153 -Home cardiac medications: Aspirin 81 mg daily and atorvastatin 40 mg p.o. nightly -Prior stress test: At least 4 years ago and told to be unremarkable according to the patient -Echocardiogram: May 2023 revealed normal LV systolic function -Cardiac catheterization: No recent cardiac catheterization 12/22/2024 Patient examined this morning at the bedside by Dr. Hawkins. Patient currently denies any chest pain or pressure. He denies shortness of breath. Vital signs are stable. PHYSICAL EXAM: VITAL SIGNS: Reviewed. GENERAL: Well-developed in no acute distress. NECK: Supple. No JVD or thyromegaly LUNGS: Respirations even and unlabored. Lungs essentially clear to auscultation bilaterally. HEART: Regular rate and rhythm. S1 and S2 heard. Systolic murmur noted. EXTREMITIES: Diminished peripheral pulses with no evidence of peripheral edema and no calf tenderness noted. Right foot second third and fourth toes with evidence of ulcers. ASSESSMENT: Chest discomfort, troponin negative x 1 with no acute ischemic changes noted on EKG CAD with prior PCI, in [place], exact details unknown Diabetes mellitus type 2 Hypertension Hyperlipidemia Peripheral neuropathy Chronic back pain PLAN: Continue current cardiac medications Patient to undergo Lexiscan stress test today If negative, patient may be discharged home from a cardiac standpoint and follow-up on an outpatient basis Nurse practitioner note has been reviewed by physician. Signing provider agrees with the documented findings, assessment, and plan of care documented by INTERNAL MEDICINE DOCTOR as a scribe. Objective - Vital Signs Vital signs: Vital Signs Temp 97.7 F 12/22/24 07:25 Pulse 60 12/22/24 07:25 Resp 15 12/22/24 07:25 BP 130/76 12/22/24 07:25 Pulse Ox 94 L 12/22/24 07:25 FiO2 Intake & Output 12/21/24 12/22/24 12/22/24 18:59 06:59 18:59 Output Total 800 Balance -800 Weight 104.326 kg Output: Urine 800 - Labs CBC & Chem 7: 12/22/24 04:12 12/22/24 04:12 Labs: Abnormal Lab Results - Last 24 Hours (Table) 12/21/24 12/21/24 12/21/24 Range/Units 10:03 10:03 10:03 RBC 4.04 L (4.30-5.90) m/uL Hgb 12.6 L (13.0-17.5) gm/dL Hct 38.2 L (39.0-53.0) % MCV (80.0-97.0) FL MCHC (32.0-37.0) g/dL RDW 15.7 H (11.5-15.5) % Chloride 109 H (98-107) mmol/L Carbon Dioxide (21.6-31.8) mmol/L Glucose (70-110) mg/dL POC Glucose (mg/dL) (70-110) mg/dL Hemoglobin A1c 6.5 H (<=6.0) % Total Protein 6.2 L (6.3-8.2) g/dL HDL Cholesterol (40.00-60.00) mg/dL 12/21/24 12/21/24 12/21/24 Range/Units 15:21 17:21 19:57 RBC (4.30-5.90) m/uL Hgb (13.0-17.5) gm/dL Hct (39.0-53.0) % MCV (80.0-97.0) FL MCHC (32.0-37.0) g/dL RDW (11.5-15.5) % Chloride (98-107) mmol/L Carbon Dioxide (21.6-31.8) mmol/L Glucose (70-110) mg/dL POC Glucose (mg/dL) 212 H 131 H 179 H (70-110) mg/dL Hemoglobin A1c (<=6.0) % Total Protein (6.3-8.2) g/dL HDL Cholesterol (40.00-60.00) mg/dL 12/22/24 12/22/24 12/22/24 Range/Units 04:12 04:12 05:33 RBC 4.04 L (4.30-5.90) m/uL Hgb 12.4 L (13.0-17.5) gm/dL Hct 39.3 L (39.0-53.0) % MCV 97.3 H (80.0-97.0) FL MCHC 31.6 L (32.0-37.0) g/dL RDW 15.1 H (11.5-15.5) % Chloride (98-107) mmol/L Carbon Dioxide 21.4 L (21.6-31.8) mmol/L Glucose 131 H (70-110) mg/dL POC Glucose (mg/dL) 132 H (70-110) mg/dL Hemoglobin A1c (<=6.0) % Total Protein 6.1 L (6.3-8.2) g/dL HDL Cholesterol 33.80 L (40.00-60.00) mg/dL
[2024-12-22] MEDS: CHOLECALCIFEROL 25 MCG (1000 IU) TABLET PO SCH (11:17)
[2024-12-22] MEDS: FOLIC ACID 1 MG TAB PO SCH (11:17)
[2024-12-22] MEDS: ASPIRIN 81 MG PO SCH (11:17)
[2024-12-22] MEDS: ENOXAPARIN 40 MG/0.4 ML SYRINGE SQ SCH (11:51)
[2024-12-22 12:19] LABS: Glucose,Whole Blood 145 mg/dL (70-110)
--- NOTE | 2024-12-22 12:26 | CA ---
Lexiscan Nuclear Stress Test Report Name: Pete Tyson Exam Date: 12/22/2024 09:17 Exam Location: [place] Stress Ht (in): 73 Wt (lb): 230 BSA: 2.28 Ordering Phys: Harini Mart Referring Phys: NESHA Technologist: Sammy Lawler Age: 84 Gender: M : 1940 Procedure CPT: Indications: Reflex order-Stress test ICD-10 Codes: Patient History: CHEST PRESSURE, DIFFICULTY IN BREATHING, NUMBNESS IN FACE/NECK, HYPERCHOLESTEROLEMIA, CURRENT SMOKER, PRIOR CATH WITH 3 STENTS Medications: Meds past 24 hrs: Pretest Chest Pain: STRESS TEST Lexiscan Protocol Exercise Duration (min:sec): 02:[address] Depressions (mm): Angina Score: Seals Score: Resting HR (bpm): 62 Peak HR (bpm): 90 Resting BP (mmHg): 121 / 74 Peak BP (mmHg): 126 / 61 MPHR: 138 Target HR: 117 % MPHR: 65 METS: 1.0 Total Dose: Peak Dose: Atropine: Double Product: 40716 BP Response: Stress Termination: INFUSION COMPLETE Stress Symptoms: NO SYMPTOMS Stress Summary: ECG ANALYSIS Resting ECG: Normal sinus rhythm normal axis normal intervals Stress ECG: Patient was given intravenous Lexiscan as a protocol did not have chest pain or diagnostic ST segment depression CONCLUSIONS Negative stress test by EKG criteria Cardial lead portion of the stress test will be reported separately Dr. Brandon Hawkins MD (Electronically Signed) Final Date: 22 December 2024 12:25
--- NOTE | 2024-12-22 12:54 | NM ---
EXAMINATION TYPE: NM stress lexiscan cardiolite DATE OF EXAM: 12/22/2024 COMPARISON: NONE CLINICAL INDICATION: Male, 84 years old with history of chest pain; history of hypercholesterolemia a nd tobacco use. History of angioplasty x3. TECHNIQUE: After the intravenous administration of 10.6 mCi Tc 99m Sestamibi - Cardiolite resting SP ECT images acquired 45 minutes post injection. The patient received 0.4mg Lexiscan, 26.8 mCi Tc 99m Sestamibi - Stress images obtained [address] injection FINDINGS: Review of stress and rest SPECT images demonstrates no distinct perfusion abnormality. Gated analysi s shows normal wall motion with an estimated left ventricular ejection fraction of 49 %. IMPRESSION: No scintigraphic evidence for reversible ischemia. [facility], , 12/22/2024 12:52 PM
[2024-12-22 15:28] VITALS: BP 152/81; PULSE 80; RESP 17; TEMP 98
[2024-12-22] MEDS: levETIRAcetam 500 MG TAB PO SCH (15:54)
--- NOTE | 2024-12-22 15:58 | P.CNNES ---
History of Present Illness Consult date: 12/22/24 Requesting physician: Wilmer Brewer Reason for Consult: episode of convulsion in ER History of Present Illness: This is an 84-year-old gentleman who presented emergency department on 12/21/2024 for chest pain. Neurology is consulted for convulsion. Patient could not provide detailed history. According to the primary practitioner she stated that yesterday while he was in the ER he had an episode of convulsions staring off and was not responding. Patient states that he does not have seizures and he does have an anxiety depression and just shakes violently and he is aware what is going on with these episodes. Feels his muscle is just stiff when this happens. Denies any history of stroke. He does have a history of coronary artery status post stent, diabetes mellitus, he has history of neuropathy. He is on aspirin 81 mg daily. Of note, I personally seen the patient during a prior hospital visit in our facility on 06/14/2023 for similar episode of staring off nonrhythmic movement of extremity and unresponsiveness and it was captured on the EEG and its nonepileptic. At that time patient had arrhythmia and stated lecture events due to his cardiac arrhythmia versus psychiatric issue. At that time also patient had MRI of the brain which is negative for any acute process. Patient had cyst in the third ventricle. Some of the workup during this hospital visit consisted of: I reviewed the lab workup. CT of the head is reported as no acute intracranial process. Nonspecific white matter changes, likely secondary to chronic small vessel ischemic disease. 8 mm colloid cyst similar to prior in 2022. I personally reviewed the CT and I agree with the report. Cardiac stress test: as negative for reversible ischemia. Review of Systems As per HPI. Past Medical History Past Medical History: Coronary Artery Disease (CAD), Diabetes Mellitus, GI Bleed, Hyperlipidemia, Osteoarthritis (OA) Additional Past Medical History / Comment(s): ESSENTIAL TREMORS, GI bleed 10/2017, diverticulitis, gallstones, some loss of use of rt arm, herniated disk, spinal stenosis History of Any Multi-Drug Resistant Organisms: None Reported Past Surgical History: Cholecystectomy Additional Past Surgical History / Comment(s): 3 cardiac stents, surgery on rt arm x 3 -fx as child, left eyelid surgery Past Anesthesia/Blood Transfusion Reactions: No Reported Reaction Date of Last Stent Placement:: 1999 Past Psychological History: Anxiety, Depression, Panic Disorder, Schizophrenia Smoking Status: Current every day smoker Past Alcohol Use History: None Reported Additional Past Alcohol Use History / Comment(s): SMOKES 1/2 PPD, SINCE AGE 20 Past Drug Use History: None Reported - Past Family History Mother Family Medical History: No Reported History family Family Medical History: Coronary Artery Disease (CAD) Medications and Allergies Home Medications Medication Instructions Recorded Confirmed Type Atorvastatin [Lipitor] 40 mg PO HS 01/01/17 12/21/24 History Aspirin [Adult Low Dose Aspirin EC] 81 mg PO DAILY 05/29/18 12/21/24 History methocarbamoL [Robaxin] 500 mg PO BID@1930,2130 04/04/22 12/21/24 History metFORMIN HCL 1,000 mg PO BID 06/30/22 12/21/24 History Folic Acid 1 mg PO DAILY 07/17/22 12/21/24 History Cholecalciferol [Vitamin D3 (25 25 mcg PO DAILY 12/21/24 12/21/24 History Mcg = 1000 Iu)] Meloxicam [Mobic] 15 mg PO HS 12/21/24 12/21/24 History Propranolol HCl [Inderal] 60 mg PO BID 12/21/24 12/21/24 History NIFEdipine [Procardia] 10 mg PO TID 30 Days #90 cap 12/22/24 Rx Allergies Allergy/AdvReac Type Severity Reaction Status Date / Time No Known Allergies Allergy Verified 12/21/24 15:14 Physical Examination - Vital Signs Vital Signs: Vital Signs Temp Pulse Pulse Resp BP BP BP 12/22/24 15:20 98.0 F 80 17 152/81 12/22/24 07:25 97.7 F 60 15 130/76 12/22/24 01:34 97.4 F L 60 18 108/56 12/21/24 19:05 97.6 F 69 18 116/60 12/21/24 15:43 56 L 16 114/81 Pulse Ox 12/22/24 15:20 98 12/22/24 07:25 94 L 12/22/24 01:34 96 12/21/24 19:05 96 12/21/24 15:43 95 Intake and Output 12/22/24 12/22/24 12/22/24 06:59 14:59 22:59 Intake Total 118 Output Total 600 Balance -600 118 Intake: Oral 118 Output: Urine 600 Other: # Voids 1 # Bowel Movements 1 General: Lying in bed and is not in acute distress. Neuro: Awake alert oriented to self place and time. Is following simple commands. No aphasia. Pupils are round equal about 4 mm and reactive to light. Visual valdovinos are full to confrontation. Extraocular moods intact no nystagmus. Normal facial sensation to touch. Left nasolabial flattening. No dysarthria. Tongue is midline move [id number] without difficulty. Motor strength is 5 out of 5 throughout Sensation is normal to touch Cerebellar as has end of action tremor with [id number] bilaterally. No resting tremor. Sensation is normal to touch Reflexes 2 positive. Plantars are mute Results - Laboratory Findings CBC and BMP: 12/22/24 04:12 12/22/24 04:12 Abnormal Lab Findings: Abnormal Labs 12/21/24 12/21/24 12/21/24 10:03 10:03 10:03 RBC 4.04 L Hgb 12.6 L Hct 38.2 L MCV MCHC RDW 15.7 H Chloride 109 H Carbon Dioxide Glucose POC Glucose (mg/dL) Hemoglobin A1c 6.5 H Total Protein 6.2 L HDL Cholesterol 12/21/24 12/21/24 12/21/24 15:21 17:21 19:57 RBC Hgb Hct MCV MCHC RDW Chloride Carbon Dioxide Glucose POC Glucose (mg/dL) 212 H 131 H 179 H Hemoglobin A1c Total Protein HDL Cholesterol 12/22/24 12/22/24 12/22/24 04:12 04:12 05:33 RBC 4.04 L Hgb 12.4 L Hct 39.3 L MCV 97.3 H MCHC 31.6 L RDW 15.1 H Chloride Carbon Dioxide 21.4 L Glucose 131 H POC Glucose (mg/dL) 132 H Hemoglobin A1c Total Protein 6.1 L HDL Cholesterol 33.80 L 12/22/24 12:17 RBC Hgb Hct MCV MCHC RDW Chloride Carbon Dioxide Glucose POC Glucose (mg/dL) 145 H Hemoglobin A1c Total Protein HDL Cholesterol Assessment and Plan Assessment: This is an 84-year-old gentleman who presented emergency department on 12/21/2024 for chest pain. Neurology is consulted for convulsion while he was in the ER and he was staring off. He had similar episode in the past that was captured on EEG in 2022 which was nonepileptic and there was concern for arrhythmia versus psychogenic Convulsive episode with staring off: Unsure if it is due to psychiatric >>> versus arrhythmia. Had prior episode in 2022 that was captured on the EEG which was unremarkable for seizure or discharges. Had prior MRI of the brain which was negative for any acute process next Acute chest pain History of colloid cyst History of coronary artery disease status post stent Diabetes mellitus History of neuropathy Reported essential tremor Underlying history of anxiety Underlying history of depression Underlying history of panic attacks Underlying history of schizophrenia Plan: I started the patient on Keppra 500 mg twice daily and will get an EEG to capture the episode Electrical Foreman is consulted Recommend the patient to follow-up with a neurologist for further evaluation. Recommend to follow-up within 3 weeks Recommend the patient to follow-up with a psychiatrist as an outpatient Recommend outpatient neuropsych evaluation for memory testing. For the colloid cyst recommend the patient to follow-up with a neurologist as an outpatient within 3 to 4 weeks and surveillance imaging. Will defer the rest of the medical management to primary and other specialist Addendum: Patient episode of convulsion with starring off was captured on the EEG and it was negative for any seizure or discharges. Patient stated that he was aware of those episodes after it happened. Since the patient's episode is nonepileptic, I discontinued the Keppra. I recommend the patient to follow-up with a psychiatrist as an outpatient as well as neurologist as an outpatient for further evaluation. The plan discussed with the patient primary team nurse practitioner and her nurse Thank you for the consultation. Time with Patient: Greater than 30
--- NOTE | 2024-12-22 16:26 | P.DS ---
Providers Date of admission: 12/21/24 10:47 Expected date of discharge: 12/22/24 Attending physician: Jahaira Chaney MD Consults: 12/21/24 16:26 Consult Physician Routine Consulting Provider: Dick Garcia Consult Reason/Comments: episode of convulsions in ER, A team was called. Episode ended w/o interven Do you want consulting provider notified?: Yes Primary care physician: [facility] Course: Discharge Diagnosis: Chest pain, acute coronary event ruled out Myoclonic jerks/tremors of upper extremities. EEG was negative patient experienced 2 episodes of these myoclonic jerking reactions/tremors during EEG which was negative for seizure activity. Unclear cause of these tremors, discussed with patient that he will need to follow-up with [facility] and [facility]. Patient verbalized understanding. Continue propranolol 60 mg twice daily. Sinus bradycardia History of CAD status post stenting Hyperlipidemia Raynaud's disease with small ulcerations left foot distal second, third, and fourth toes Follows Dr. Colon outpatient for management. Called and discussed case in detail with Dr. Colon, patient started on nifedipine 10 mg 3 times d aily. Mub-bjwxiee-npqlctcbq diabetes mellitus with diabetic peripheral neuropathy. Hemoglobin A1c 6.5%. Resume metformin 1000 mg twice daily. Hospital Course: Patient is a very pleasant 84-year-old male with a past medical history of CAD status post stenting x 3, hyperlipidemia, gwt-[id number] diabetes mellitus with diabetic peripheral neuropathy of bilateral lower extremities, GERD, chronic lower back pain, and advanced Raynaud's disease in which he follows Dr. Colon, vascular surgeon for management. He presented to the emergency department with a chief complaint of chest pain. Patient reports that he got up this morning around 4:30 AM and found his toilet to be frozen. He reports he worked on it a bit and poored some antifreeze down into the toilet then went and sat in his recliner. Patient reports shortly after sitting down he began feeling an intense heaviness and pressure to his midsternal and left anterior chest followed by a cold sensation and significant sweating and feeling as though his heart rate and breathing became very very slow. . Patient reports he was alarmed because this is exactly how he felt when he had his first stent placed in 1997 as well as the same way he felt when he had his nedt two stents placed in 1999, so he called his son followed by EMS for transfer to the hospital. He denies having any headache, lightheadedness, dizziness palpitations, shortness of breath, cough or congestion, nausea or vomiting, or experiencing any numbness/tingling/weakness/swelling in his extremities. Upon arrival to our facility, patient underwent evaluation in the emergency department. Vital signs upon arrival show blood pressure 128/73, heart rate 53, respiratory rate 16, temp 97.8 F, and SpO2 of 97% on room air. EKG was completed showing sinus bradycardia at 50 bpm nonspecific T wave abnormalities. Chest x-ray completed showing a 1 cm nodule right midlung and subsegmental atelectasis right lower lung base. Labs completed and reviewed. CBC showing mild normocytic anemia with hemoglobin of 12.6. Coagulation profile normal findings. BMP showing hyperchloremia with chloride of 109 otherwise normal findings. Blood glucose 76. Magnesium 2.2. Liver profile unremarkable. Troponin was negative at less than 0.012. Patient admitted under services with consultation to cardiology. Troponins were trended all negative at less than 0.012 x 3 draws. Hemoglobin A1c 6.5%. Lipid profile unremarkable with exception of low HDL of 33.80. Echocardiogram was completed however results not available at time of discharge and per cardiology patient cleared from their perspective. Patient underwent Lexiscan stress test which was negative showing no scintigraphic evidence for reversible ischemia. Patient was evaluated by neurologist secondary to observed myoclonic jerks/tremors of upper extremities.EEG was negative patient experienced 2 episodes of these myoclonic jerking reactions/tremors during EEG which was negative for seizure activity. Unclear cause of these tremors, discussed with patient that he will need to follow-up with his neurologist and psychiatrist with [facility]. Patient verbalized understanding. Continue propranolol 60 mg twice daily. Patient medically optimized for discharge at this time, he has been cleared from cardiology and neurology perspective. Patient to follow-up outpatient with PCP in 1 to 2 days and with equipment detailer, neurologist, and psychiatrist at [facility]. Physical exam: Vital signs reviewed and stable. General: Nontoxic, no distress and appears stated age. Derm: Skin warm and dry, normal coloration for ethnicity.. 3 small ulcers left foot the distal portion of second, third, and fourth toes Head: Atraumatic, normocephalic and symmetric. Eyes: EOM's intact, no lid lag, and anicteric sclera Mouth: no lip lesions, mucus membranes moist Cardiovascular: Bradycardic rate regular rhythm with normal S1S2, systolic murmur, positive posterior tibial pulses bilaterally Lungs: Respirations even, regular, and unlabored on room air. Lungs CTA bilaterally, no rhonchi, no rales, no wheezing, and no accessory muscle usage. Abdominal: soft, nontender to palpation, no guarding, no appreciable organomegaly Ext:. No gross muscle atrophy, no edema, no contractures. Movement and sensation intact. Bilateral feet cool to touch and Sabas discoloration, posterior tibial and pedal pulses palpated and location marked with pen at bedside. Patient does have delayed capillary refill dorsal foot approximately 4 seconds. Neuro: Speech clear, face symmetrical and CN II-XII grossly intact with no noted focal neuro deficits Psych: Alert and oriented to person, place, time, and situation. Appropriate and pleasant affect. A total of 36 minutes of time were spent preparing this complex discharge summary. Pt was discharged on 12/18/2024 at 3:43 PM. Patient was seen independently by Nurse Practitioner. This document was prepared using [employer] dictation software. Please allow for errors in analytical tech while rare they do occur. Wilmer Brewer NP rendered care for this patient independently, reviewed the findings and plan as documented in the note above. I did not physically speak with or examine the patient on this date. Patient Condition at Discharge: Stable Plan - Discharge Summary Discharge Rx Participant: Yes New Discharge Prescriptions: New NIFEdipine [Procardia] 10 mg PO TID 30 Days #90 cap Continue Atorvastatin [Lipitor] 40 mg PO HS Aspirin [Adult Low Dose Aspirin EC] 81 mg PO DAILY methocarbamoL [Robaxin] 500 mg PO BID@ metFORMIN HCL 1,000 mg PO BID Folic Acid 1 mg PO DAILY Cholecalciferol [Vitamin D3 (25 Mcg = 1000 Iu)] 25 mcg PO DAILY Propranolol HCl [Inderal] 60 mg PO BID Meloxicam [Mobic] 15 mg PO HS Discharge Medication List Atorvastatin [Lipitor] 40 mg PO HS 01/01/17 [History] Aspirin [Adult Low Dose Aspirin EC] 81 mg PO DAILY 05/29/18 [History] methocarbamoL [Robaxin] 500 mg PO BID@04/04/22 [History] metFORMIN HCL 1,000 mg PO BID 06/30/22 [History] Folic Acid 1 mg PO DAILY 07/17/22 [History] Cholecalciferol [Vitamin D3 (25 Mcg = 1000 Iu)] 25 mcg PO DAILY 12/21/24 [History] Meloxicam [Mobic] 15 mg PO HS 12/21/24 [History] Propranolol HCl [Inderal] 60 mg PO BID 12/21/24 [History] NIFEdipine [Procardia] 10 mg PO TID 30 Days #90 cap 12/22/24 [Rx] Follow up Appointment(s)/Referral(s): Vinod Ames DO [Primary Care Provider] - 1-2 days Patient Instructions/Handouts: Chest Pain (DC), Anxiety (GEN), Tremors (DC) Activity/Diet/Wound Care/Special Instructions: Activity: As tolerated. Take breaks as needed. Diet: Heart healthy and carb consistent diet. Avoid salts, or foods with hidden salts such as canned or boxed foods and frozen dinners. Extra salt makes your heart work harder and traps the fluid in your body for longer. Special Instructions: Take all of your medications as directed and remember to keep all of your doctor's appointments and follow-up as needed. As discussed with you at bedside by neurologist, it is important to follow-[facility] with [facility] and [facility] as additional medications/changes to your medications for anxiety he needed to add to your current medication regimen. Also, it is important to follow-up with Dr. Colon, your vascular sugeon for continued monitoring of your Raynauds. Thank you for allowing us to participate in your care, it was truly a pleasure having you for our patient!!! Discharge Disposition: HOME SELF-CARE
--- NOTE | 2024-12-22 17:50 | CA ---
Transthoracic Echo Report Name: Pete Tyson Age: 84 Gender: M : 1940 Exam Date: 12/22/2024 10:52 Exam Location: [facility] Ht (in): 73 Wt (lb): 230 Ordering Physician: Harini Mart Attending/Referring Phys: [id number], Brittny Client Administrator Katt Hartman RDCS Procedure CPT: Indications: Chest Pain Cardiac Hx: Technical Quality: Fair Contrast 1: Total Dose (mL): Contrast 2: Total Dose (mL): MEASUREMENTS (Male / Female) Normal Values 2D ECHO LV Diastolic Diameter PLAX 5.4 cm 4.2 - 5.9 / 3.9 - 5.3 cm LV Systolic Diameter PLAX 3.6 cm IVS Diastolic Thickness 0.8 cm 0.6 - 1.0 / 0.6 - 0.9 cm LVPW Diastolic Thickness 1.1 cm 0.6 - 1.0 / 0.6 - 0.9 cm LV Relative Wall Thickness 0.4 LVOT Diameter 2.5 cm LV Diastolic Volume MOD BP 113.5 cm??? 67 - 155 / 56 - 104 cm??? LV Systolic Volume MOD BP 49.1 cm??? 22 - 58 / 19 - 49 cm??? LV Ejection Fraction MOD BP 56.7 % >= 55 % LV Cardiac Index MOD BP 1593.6 cm???/min???m??? LV Diastolic Volume MOD 4C 115.1 cm??? LV Systolic Volume MOD 4C 45.4 cm??? LV Ejection Fraction MOD 4C 60.5 % LV Cardiac Index MOD 4C 1726.3 cm???/min???m??? LV Diastolic Length 4C 8.7 cm LV Systolic Length 4C 7.4 cm LV Diastolic Volume MOD 2C 110.8 cm??? LV Systolic Volume MOD 2C 46.9 cm??? LV Ejection Fraction MOD 2C 57.7 % LV Cardiac Index MOD 2C 1584.2 cm???/min???m??? LV Diastolic Length 2C 8.5 cm LV Systolic Length 2C 6.4 cm LA Volume 52.7 cm??? 18 - 58 / 22 - 52 cm??? LA Volume Index 22.5 cm???/m??? 16 - 28 cm???/m??? Ascending Aorta Diameter 3.9 cm DOPPLER AV Peak Velocity 187.1 cm/s AV Peak Gradient 14.0 mmHg AV Mean Velocity 124.3 cm/s AV Mean Gradient 7.2 mmHg AV Velocity Time Integral 36.4 cm LVOT Peak Velocity 102.2 cm/s LVOT Peak Gradient 4.2 mmHg LVOT Velocity Time Integral 20.1 cm LVOT Stroke Volume 102.1 cm??? LVOT Stroke Volume Index 44.7 ml/m??? LVOT Cardiac Index 2528.2 cm???/min???m??? AV Area Cont Eq vti 2.8 cm??? AV Area Cont Eq pk 2.8 cm??? MV Area PHT 2.6 cm??? Mitral E Point Velocity 54.5 cm/s Mitral A Point Velocity 95.3 cm/s Mitral E to A Ratio 0.6 MV Deceleration Time 285.7 ms PV Peak Velocity 131.0 cm/s PV Peak Gradient 6.9 mmHg FINDINGS Left Ventricle Left ventricular ejection fraction is estimated at 55-60 %. Left ventricular cavity size normal. Left ventricular wall thickness normal. No obvious regional wall motion abnormalities. Right Ventricle Normal right ventricular size and function. Unable to estimate the right ventricular systolic pressure. Right Atrium Normal right atrial size. Left Atrium Normal left atrial size. Mitral Valve Structurally normal mitral valve. No evidence for mitral valve prolapse. No mitral stenosis. Trace mitral regurgitation. Aortic Valve Trileaflet aortic valve. Aortic valve sclerosis. No aortic valve stenosis or regurgitation. Tricuspid Valve Structurally normal tricuspid valve. No tricuspid stenosis. Mild tricuspid regurgitation. Pulmonic Valve Structurally normal pulmonic valve. No pulmonic stenosis. No pulmonic regurgitation. Pericardium No pericardial effusion. Aorta Normal size aortic root and proximal ascending aorta. CONCLUSIONS Normal LV function Previewed by: Dr. Brandon Hawkins MD (Electronically Signed) Final Date: 22 December 2024 17:49
--- NOTE | 2024-12-23 01:41 | EEG ---
ELECTROENCEPHALOGRAM REPORT CLINICAL HISTORY: This is an 84-year-old gentleman with episode of convulsion. The video EEG is obtained to evaluate for seizure epileptiform activity. MEDICATION: Keppra. EEG TYPE: This is a routine 21-channel EEG with video using the 10/20 electrode placement system. DESCRIPTION: Wakefulness is only obtained. During awake state, the posterior-dominant rhythm consists of [id number] voltage of 7 to 7.5 hertz activity that is well modulated and well sustained. There is no physiological stage 2 sleep architecture. There is no focal slowing. Interictal and ictal is that the patient had 2 events where he was convulsing, raising his arm, staring off, an example is at 14 to 25 minutes into the recording, the patient had his arms raised and was staring off and screaming and electrographically there was myogenic artifact, predominantly in bilateral temporal region and there is no seizure or discharges noted during that event. As stated earlier, there is a lot of myogenic artifact and the background is hard to assess, but was 5 to 6 hertz and there is no rhythmicity and at times, the background consists of 4 to 5, but again there is no rhythmicity or evolution. ACTIVATION PROCEDURE: Photic stimulation and hyperventilation are not performed. CLINICAL INTERPRETATION: This is an abnormal routine EEG. The background slowing is suggestive of mild encephalopathy. There are 2 episodes captured that are nonepileptic in nature. No seizure or discharges noted during the study. Clinical correlation is recommended. GAIL / SOILAN: [id number] /
== END 2024-12-22 16:45 | disposition home or self-care (01) ==
LOC: EC 09:37 → 6NMEDSUR 10:47
PROVIDERS: ADMIT Internal Medicine; ATTEND Internal Medicine
DX: R07.89 Other chest pain (principal); I25.10 Atherosclerotic heart disease of native coronary artery without angina pectoris; E11.42 Type 2 diabetes mellitus with diabetic polyneuropathy; E11.621 Type 2 diabetes mellitus with foot ulcer; E87.8 Other disorders of electrolyte and fluid balance, not elsewhere classified; D64.9 Anemia, unspecified; E78.5 Hyperlipidemia, unspecified; F17.200 Nicotine dependence, unspecified, uncomplicated; G25.0 Essential tremor; G25.3 Myoclonus; G89.29 Other chronic pain; M54.9 Dorsalgia, unspecified; I10 Essential (primary) hypertension; I25.2 Old myocardial infarction; I73.00 Raynaud's syndrome without gangrene; L97.529 Non-pressure chronic ulcer of other part of left foot with unspecified severity; R56.9 Unspecified convulsions; R00.1 Bradycardia, unspecified; F41.0 Panic disorder [episodic paroxysmal anxiety]; F20.9 Schizophrenia, unspecified; F32.A Depression, unspecified; Z79.4 Long term (current) use of insulin; Z79.82 Long term (current) use of aspirin; Z79.84 Long term (current) use of oral hypoglycemic drugs; Z79.899 Other long term (current) drug therapy; Z95.5 Presence of coronary angioplasty implant and graft
CPT/HCPCS: 99285; 36415; 95816; 93005; 93017; 93306; 83880; 80061; 80053 ×2; 83735 ×2; 84484; 85025; 85027; 85610; 85730; 83036; 71046; 70450; 78452; G0378 ×2; A9500

== ENCOUNTER 2025-01-19 16:54 | Inpatient (IN) | payer MEDICARE, OTHER ==
--- NOTE | 2025-01-19 17:19 | ED ---
SOB HPI - General Source: patient, RN notes reviewed Mode of arrival: wheelchair Limitations: no limitations - History of Present Illness MD Complaint: shortness of breath <Meme Mast - Last Filed: 01/19/25 17:22> - General Source: patient, RN notes reviewed, old records reviewed Mode of arrival: wheelchair Limitations: no limitations - History of Present Illness MD Complaint: shortness of breath -: days(s) Severity scale (1-10): 8 Consistency: constant Improves With: nothing Worsens With: exertion Context: recent URI, recent illness Associated Symptoms: cough, sputum production Treatments Prior to Arrival: none <Timmy Oakes - Last Filed: 01/26/25 16:06> - General Chief Complaint: Shortness of Breath Stated Complaint: referal - low O2, weakness, congestion Time Seen by Provider: 01/19/25 17:10 - History of Present Illness Initial Comments: Quick Note: This is an 84 year old male who presents to the emergency department for shortness of breath for 3 weeks. Reports coughing and congestion as well. [facility] due to his symptoms and low oxygen. (Meme Mast) This is an 84 male [facility]. Patient is very short of breath here in the emergency department (Timmy Oakes) - Related Data Home Medications Medication Instructions Recorded Confirmed Atorvastatin [Lipitor] 40 mg PO HS 01/01/17 01/20/25 Aspirin [Adult Low Dose Aspirin EC] 81 mg PO DAILY 05/29/18 01/20/25 methocarbamoL [Robaxin] 500 mg PO BID@1930,2130 04/04/22 01/20/25 metFORMIN HCL 1,000 mg PO BID 06/30/22 01/20/25 Folic Acid 1 mg PO DAILY 07/17/22 01/20/25 Cholecalciferol [Vitamin D3 (25 25 mcg PO DAILY 12/21/24 01/20/25 Mcg = 1000 Iu)] Meloxicam [Mobic] 15 mg PO HS 12/21/24 01/20/25 Propranolol HCl [Inderal] 60 mg PO BID 12/21/24 01/20/25 amLODIPine [Norvasc] 10 mg PO DAILY 01/20/25 01/20/25 Previous Rx's Medication Instructions Recorded Ipratropium-Albuterol Nebulize 3 ml INHALATION RT-QID #50 each 01/20/25 [Duoneb 0.5 mg-3 mg/3 ml Soln] Allergies Allergy/AdvReac Type Severity Reaction Status Date / Time No Known Allergies Allergy Verified 01/20/25 11:29 Review of Systems ROS Other: All systems not noted in ROS Statement are negative. <Meme Mast - Last Filed: 01/19/25 17:22> ROS Other: All systems not noted in ROS Statement are negative. <Timmy Oakes - Last Filed: 01/26/25 16:06> ROS Statement: Those systems with pertinent positive or pertinent negative responses have been documented in the HPI. Past Medical History Past Medical History: Coronary Artery Disease (CAD), Diabetes Mellitus, GI Bleed, Hyperlipidemia, Osteoarthritis (OA) Additional Past Medical History / Comment(s): ESSENTIAL TREMORS, GI bleed 10/2017, diverticulitis, gallstones, some loss of use of rt arm, herniated disk, spinal stenosis History of Any Multi-Drug Resistant Organisms: None Reported Past Surgical History: Cholecystectomy Additional Past Surgical History / Comment(s): 3 cardiac stents, surgery on rt arm x 3 -fx as child, left eyelid surgery Past Anesthesia/Blood Transfusion Reactions: No Reported Reaction Date of Last Stent Placement:: 1999 Past Psychological History: Anxiety, Depression, Panic Disorder, Schizophrenia Smoking Status: Current every day smoker Past Alcohol Use History: None Reported Additional Past Alcohol Use History / Comment(s): SMOKES 1/2 PPD, SINCE AGE 20 Past Drug Use History: None Reported - Past Family History Mother Family Medical History: No Reported History family Family Medical History: Coronary Artery Disease (CAD) <Meme Mast - Last Filed: 01/19/25 17:22> General Exam <Meme Mast - Last Filed: 01/19/25 17:22> General appearance: alert, in no apparent distress, anxious Head exam: Present: atraumatic, normocephalic, normal inspection Eye exam: Present: normal appearance, PERRL, EOMI. Absent: scleral icterus, conjunctival injection, periorbital swelling ENT exam: Present: normal exam, mucous membranes moist Neck exam: Present: normal inspection. Absent: tenderness, meningismus, lymphadenopathy Respiratory exam: Present: respiratory distress, wheezes, accessory muscle use, decreased breath sounds, prolonged expiratory. Absent: rales, rhonchi, stridor Cardiovascular Exam: Present: regular rate, normal rhythm, normal heart sounds. Absent: systolic murmur, diastolic murmur, rubs, gallop, clicks GI/Abdominal exam: Present: soft, normal bowel sounds. Absent: distended, tenderness, guarding, rebound, rigid Extremities exam: Present: normal inspection, full ROM, normal capillary refill. Absent: tenderness, pedal edema, joint swelling, calf tenderness Back exam: Present: normal inspection Neurological exam: Present: alert, oriented X3, CN II-XII intact Psychiatric exam: Present: normal affect, normal mood Skin exam: Present: warm, dry, intact, normal color. Absent: rash <Timmy Oakes - Last Filed: 01/26/25 16:06> - General Exam Comments Initial Comments: Visual Physical Exam Vital signs reviewed General: Well-appearing, nontoxic, no acute distress. Head: Normocephalic, atraumatic Eyes: PERRLA, EOMI ENT: Airway patent Chest: Nonlabored breathing Skin: No visual rash, normal skin tone Neuro: Alert and oriented 3 Musculoskeletal: No gross abnormalities (KatiuskaeyMeme) Course <Timmy Oakes - Last Filed: 01/26/25 16:06> Vital Signs 01/19/25 01/19/25 01/19/25 17:17 21:50 23:21 Temperature 97.5 F L 97.6 F Pulse Rate 65 76 64 Pulse Rate [ Pulse Oximetery ] Respiratory 24 20 Rate Blood Pressure 107/67 130/81 Blood Pressure [Right Arm] O2 Sat by Pulse 96 97 Oximetry O2 Sat by Pulse Oximetry [O2 at Rest] O2 Sat by Pulse Oximetry [O2 w /Exercise] O2 Sat by Pulse Oximetry [Room Air at Rest] O2 Sat by Pulse Oximetry [Room Air w/Exercise ] 01/19/25 01/20/25 01/20/25 23:30 00:00 02:00 Temperature Pulse Rate 63 62 64 Pulse Rate [ Pulse Oximetery ] Respiratory 17 16 Rate Blood Pressure 109/67 109/69 Blood Pressure [Right Arm] O2 Sat by Pulse 94 L 94 L Oximetry O2 Sat by Pulse Oximetry [O2 at Rest] O2 Sat by Pulse Oximetry [O2 w /Exercise] O2 Sat by Pulse Oximetry [Room Air at Rest] O2 Sat by Pulse Oximetry [Room Air w/Exercise ] 01/20/25 01/20/25 01/20/25 06:00 07:00 09:20 Temperature Pulse Rate 57 L 80 Pulse Rate [ 64 Pulse Oximetery ] Respiratory 16 18 18 Rate Blood Pressure 111/61 Blood Pressure 129/71 [Right Arm] O2 Sat by Pulse 95 96 Oximetry O2 Sat by Pulse Oximetry [O2 at Rest] O2 Sat by Pulse Oximetry [O2 w /Exercise] O2 Sat by Pulse Oximetry [Room Air at Rest] O2 Sat by Pulse Oximetry [Room Air w/Exercise ] 01/20/25 01/20/25 01/20/25 09:28 13:10 13:19 Temperature Pulse Rate 82 56 L 59 L Pulse Rate [ Pulse Oximetery ] Respiratory 18 18 16 Rate Blood Pressure Blood Pressure [Right Arm] O2 Sat by Pulse Oximetry O2 Sat by Pulse Oximetry [O2 at Rest] O2 Sat by Pulse Oximetry [O2 w /Exercise] O2 Sat by Pulse Oximetry [Room Air at Rest] O2 Sat by Pulse Oximetry [Room Air w/Exercise ] 01/20/25 01/20/25 01/20/25 13:30 13:45 14:50 Temperature Pulse Rate Pulse Rate [ 55 L 64 Pulse Oximetery ] Respiratory 16 18 Rate Blood Pressure Blood Pressure 72/56 115/92 [Right Arm] O2 Sat by Pulse 95 96 Oximetry O2 Sat by Pulse 96 Oximetry [O2 at Rest] O2 Sat by Pulse 94 L Oximetry [O2 w /Exercise] O2 Sat by Pulse 92 L Oximetry [Room Air at Rest] O2 Sat by Pulse 81 L Oximetry [Room Air w/Exercise ] 01/20/25 01/20/25 01/20/25 16:16 16:25 19:56 Temperature Pulse Rate 60 61 64 Pulse Rate [ Pulse Oximetery ] Respiratory 18 18 Rate Blood Pressure Blood Pressure [Right Arm] O2 Sat by Pulse Oximetry O2 Sat by Pulse Oximetry [O2 at Rest] O2 Sat by Pulse Oximetry [O2 w /Exercise] O2 Sat by Pulse Oximetry [Room Air at Rest] O2 Sat by Pulse Oximetry [Room Air w/Exercise ] 01/20/25 01/20/25 20:00 20:06 Temperature 98.9 F Pulse Rate 62 Pulse Rate [ 65 Pulse Oximetery ] Respiratory 22 Rate Blood Pressure Blood Pressure 117/77 [Right Arm] O2 Sat by Pulse 98 Oximetry O2 Sat by Pulse Oximetry [O2 at Rest] O2 Sat by Pulse Oximetry [O2 w /Exercise] O2 Sat by Pulse Oximetry [Room Air at Rest] O2 Sat by Pulse Oximetry [Room Air w/Exercise ] - Reevaluation(s) Reevaluation #1: 01/19/25 22:19 Medical records reviewed (Timmy Oakes) Reevaluation #2: 01/19/25 22:19 Patient symptoms improved with supplemental O2 still wheezing (Timmy Oakes) Reevaluation #3: 01/19/25 22:20 Patient informed of results questions answered (Timmy Oakes) Reevaluation #4: Was pt. sent in by a medical professional or institution (, PA, LEAD RECREATION ASSISTANT, urgent care, hospital, or retirement...) When possible be specific @ -no Did you speak to anyone other than the patient for history (EMS, parent, family, police, friend...)? What history was obtained from this source @ -no Did you review nursing and triage notes (agree or disagree)? Why? @ -agree Are old charts reviewed (outside hosp., previous admission, EMS record, old EKG, old radiological studies, urgent care reports/EKG's, retirement records)? Report findings @ -yes Differential Diagnosis (chest pain, altered mental status, abdominal pain women, abdominal pain men, vaginal bleeding, weakness, fever, dyspnea, syncope, headache, dizziness, GI bleed, back pain, seizure, CVA, palpatations, mental health, musculoskeletal)? @ -prior EKG interpreted by me (3pts min.). @ -yes X-rays interpreted by me (1pt min.). @ -yes positive for RSV CT interpreted by me (1pt min.). @ -no U/S interpreted by me (1pt. min.). @ -no What testing was considered but not performed or refused? (CT, X-rays, U/S, labs)? Why? @ -none What meds were considered but not given or refused? Why? @ -none Did you discuss the management of the patient with other professionals (professionals i.e. , PA, LEAD RECREATION ASSISTANT, lab, RT, psych nurse, marriage and family social worker, check and transfer beader, teacher, fundraising officer, block and case maker)? Give summary @ -no Was smoking cessation discussed for >3mins.? @ -no Was critical care preformed (if so, how long)? @ -no Were there social determinants of health that impacted care today? How? (Homelessness, low income, unemployed, alcoholism, drug addiction, transportation, low edu. Level, literacy, decrease access to med. care, prison, rehab)? @ -none Was there de-escalation of care discussed even if they declined (Discuss DNR or withdrawal of care, Hospice)? DNR status @ -no What co-morbidities impacted this encounter? (DM, HTN, Smoking, COPD, CAD, Cancer, CVA, ARF, Chemo, Hep., AIDS, mental health diagnosis, sleep apnea, morbid obesity)? @ -none Was patient admitted / discharged? Hospital course, mention meds given and route, prescriptions, significant lab abnormalities, going to OR and other pertinent info. @ - 84 male with hypoxic RSV bronchiolitis will admit for breathing treatments and supplemental O2 and oxygen monitor Admitted Undiagnosed new problem with uncertain prognosis? @ -no Drug Therapy requiring intensive monitoring for toxicity (Heparin, Nitro, Insulin, Cardizem)? @ -no Were any procedures done? @ -no Diagnosis/symptom? @ -Hypoxic respiratory failure RSV bronchiolitis Acute, or Chronic, or Acute on Chronic? @ -Acute Uncomplicated (without systemic symptoms) or Complicated (systemic symptoms)? @ -Complicated Side effects of treatment? @ -no Exacerbation, Progression, or Severe Exacerbation? @ -exacerbation Poses a threat to life or bodily function? How? (Chest pain, USA, DC, pneumonia, PE, COPD, DKA, ARF, appy, cholecystitis, CVA, Diverticulitis, Homicidal, Suicid al, threat to staff... and all critical care pts) @ -yes extremes of age (Timmy Okaes) Reevaluation #5: Differential Dyspnea: Coronary syndrome, arrhythmia, tamponade, asthma, COPD, pulmonary embolism, pneumonia, pneumothorax, pulmonary effusion, anaphylaxis, diabetic ketoacidosis, flailed chest, pulmonary contusion, diaphragmatic rupture, anemia, n euromuscular, this is not meant to be an all-inclusive list. (Timmy Oakes) - Consultations Consultation #1: Spoke with sound who agrees to admit this patient (Timmy Oakes) Medical Decision Making <Meme Mast - Last Filed: 01/19/25 17:22> - Lab Data Result diagrams: 01/21/25 07:39 01/21/25 07:39 - EKG Data -: EKG Interpreted by Me (EKG is sinus 67 HI 151 QRS 96 QTc 425) - Radiology Data Radiology results: report reviewed (Chest x-ray is negative for acute disease), image reviewed <Timmy Oakes - Last Filed: 01/26/25 16:06> - Medical Decision Making I performed the QuickNote portion of this chart. Signed Meme Mast PA-C. (Meme Mast) 84 male with hypoxic RSV bronchiolitis will admit for breathing treatments and supplemental O2 and oxygen monitor (Timmy Oakes) - Lab Data Lab Results 01/19/25 01/19/25 01/19/25 Range/Units 19:01 19:01 19:01 WBC 12.8 H (3.8-10.6) k/uL RBC 4.68 (4.30-5.90) m/uL Hgb 14.6 (13.0-17.5) gm/dL Hct 43.2 (39.0-53.0) % MCV 92.2 (80.0-100.0) fL MCH 31.1 (25.0-35.0) pg MCHC 33.8 (31.0-37.0) g/dL RDW 14.9 (11.5-15.5) % Plt Count 373 D (150-450) k/uL MPV 7.3 Neutrophils % 81 % Lymphocytes % 10 % Monocytes % 5 % Eosinophils % 2 % Basophils % 1 % Neutrophils # 10.3 H (1.3-7.7) k/uL Lymphocytes # 1.3 (1.0-4.8) k/uL Monocytes # 0.7 (0-1.0) k/uL Eosinophils # 0.2 (0-0.7) k/uL Basophils # 0.1 (0-0.2) k/uL PT 11.7 (10.0-12.5) sec INR 1.1 (<1.2) APTT 24.4 (22.0-30.0) sec Sodium 135 L (137-145) mmol/L Potassium 5.1 (3.5-5.1) mmol/L Chloride 102 (98-107) mmol/L Carbon Dioxide 19 L (22-30) mmol/L Anion Gap 14 mmol/L BUN 38 H (9-20) mg/dL Creatinine 1.18 (0.66-1.25) mg/dL Est GFR (CKD-EPI)AfAm 66 (>60 ml/min/1.73 sqM) Est GFR (CKD-EPI)NonAf 57 (>60 ml/min/1.73 sqM) Glucose 161 H (74-99) mg/dL Plasma Lactic Acid Paul (0.7-2.0) mmol/L Calcium 10.2 (8.4-10.2) mg/dL Total Bilirubin 1.1 (0.2-1.3) mg/dL AST 53 (17-59) U/L ALT 89 H (4-49) U/L Alkaline Phosphatase 78 (38-126) U/L Troponin I (0.000-0.034) ng/mL NT-Pro-B Natriuret Pep 739 pg/mL Total Protein 7.4 (6.3-8.2) g/dL Albumin 4.2 (3.5-5.0) g/dL Influenza Type A (PCR) (Not Detectd) Influenza Type B (PCR) (Not Detectd) RSV (PCR) (Not Detectd) SARS-CoV-2 (PCR) (Not Detectd) 01/19/25 01/19/25 01/19/25 Range/Units 19:01 19:01 19:01 WBC (3.8-10.6) k/uL RBC (4.30-5.90) m/uL Hgb (13.0-17.5) gm/dL Hct (39.0-53.0) % MCV (80.0-100.0) fL MCH (25.0-35.0) pg MCHC (31.0-37.0) g/dL RDW (11.5-15.5) % Plt Count (150-450) k/uL MPV Neutrophils % % Lymphocytes % % Monocytes % % Eosinophils % % Basophils % % Neutrophils # (1.3-7.7) k/uL Lymphocytes # (1.0-4.8) k/uL Monocytes # (0-1.0) k/uL Eosinophils # (0-0.7) k/uL Basophils # (0-0.2) k/uL PT (10.0-12.5) sec INR (<1.2) APTT (22.0-30.0) sec Sodium (137-145) mmol/L Potassium (3.5-5.1) mmol/L Chloride (98-107) mmol/L Carbon Dioxide (22-30) mmol/L Anion Gap mmol/L BUN (9-20) mg/dL Creatinine (0.66-1.25) mg/dL Est GFR (CKD-EPI)AfAm (>60 ml/min/1.73 sqM) Est GFR (CKD-EPI)NonAf (>60 ml/min/1.73 sqM) Glucose (74-99) mg/dL Plasma Lactic Acid Paul 1.5 (0.7-2.0) mmol/L Calcium (8.4-10.2) mg/dL Total Bilirubin (0.2-1.3) mg/dL AST (17-59) U/L ALT (4-49) U/L Alkaline Phosphatase (38-126) U/L Troponin I <0.012 (0.000-0.034) ng/mL NT-Pro-B Natriuret Pep pg/mL Total Protein (6.3-8.2) g/dL Albumin (3.5-5.0) g/dL Influenza Type A (PCR) Not Detected (Not Detectd) Influenza Type B (PCR) Not Detected (Not Detectd) RSV (PCR) Detected A (Not Detectd) SARS-CoV-2 (PCR) Not Detected (Not Detectd) Disposition <Meme Mast - Last Filed: 01/19/25 17:22> Is patient prescribed a controlled substance at d/c from ED?: No Time of Disposition: 22:00 <Timmy Oakes - Last Filed: 01/26/25 16:06> Clinical Impression: Acute exacerbation of chronic obstructive pulmonary disease, RSV bronchiolitis, Hypoxia Disposition: ADMITTED IP TO THIS HOSP Condition: Fair
--- NOTE | 2025-01-19 17:48 | XR ---
EXAMINATION TYPE: XR chest 2V DATE OF EXAM: 01/19/2025 5:41 PM COMPARISON: Chest radiographs from 12/18/2024 CLINICAL INDICATION: Male, 84 years old with history of difficulty breathing; TECHNIQUE: XR chest 2V Frontal and lateral views of the chest. FINDINGS: Lungs/Pleura: Improved aeration of the lungs. There is no evidence of pleural effusion, focal consoli dation, or pneumothorax. Pulmonary vascularity: Unremarkable. Heart/mediastinum: Cardiomediastinal silhouette is unremarkable. Musculoskeletal: No acute osseous pathology. Other findings: None IMPRESSION: Improved aeration of the lungs with persistent multifocal airspace opacities. [facility], , 01/19/2025 5:46 PM
[2025-01-19 19:25] LABS: ALT 89 U/L (4-49); African American GFR (CKD) 66 (>60 ml/min/1.73 sqM); Anion Gap 14 mmol/L; Blood Urea Nitrogen 38 mg/dL (9-20); Calcium 10.2 mg/dL (8.4-10.2); Carbon Dioxide 19 mmol/L (22-30); Chloride 102 mmol/L (98-107); Glucose 161 mg/dL (74-99); Non-African American GFR(CKD) 57 (>60 ml/min/1.73 sqM); Sodium 135 mmol/L (137-145); Total Bilirubin 1.1 mg/dL (0.2-1.3)
[2025-01-19 19:27] LABS: Potassium 5.1 mmol/L (3.5-5.1)
[2025-01-19 19:28] LABS: AST 53 U/L (17-59); Albumin 4.2 g/dL (3.5-5.0); Alkaline Phosphatase 78 U/L (38-126); Total Protein 7.4 g/dL (6.3-8.2)
[2025-01-19 19:34] LABS: NT-Pro-B-Type Natriuretic Pept 739 pg/mL
[2025-01-19 19:36] LABS: Basophils # (A) 0.1 k/uL (0-0.2); Basophils % (A) 1 %; Eosinophils # (A) 0.2 k/uL (0-0.7); Eosinophils % (A) 2 %; HCT 43.2 % (39.0-53.0); HGB 14.6 gm/dL (13.0-17.5); INR 1.1 (<1.2); Lymphocytes # (A) 1.3 k/uL (1.0-4.8); Lymphocytes % (A) 10 %; MCH 31.1 pg (25.0-35.0); MCHC 33.8 g/dL (31.0-37.0); MCV 92.2 fL (80.0-100.0); Mean Platelet Volume 7.3; Monocytes # (A) 0.7 k/uL (0-1.0); Monocytes % (A) 5 %; Neutrophils # (A) 10.3 k/uL (1.3-7.7); Neutrophils % (A) 81 %; Partial Thromboplastin Time 24.4 sec (22.0-30.0); Prothrombin Time 11.7 sec (10.0-12.5); RBC 4.68 m/uL (4.30-5.90); RDW 14.9 % (11.5-15.5); WBC 12.8 k/uL (3.8-10.6)
[2025-01-19 19:39] LABS: Platelet Count 373 k/uL (150-450)
[2025-01-19 19:46] LABS: Influenza A Not Detected (Not Detectd); Influenza B Not Detected (Not Detectd); RSV Detected (Not Detectd)
[2025-01-19] MEDS ORDERED: NALOXONE 0.4 MG/ML 1 ML VIAL IV PRN (23:00)
[2025-01-19] MEDS ORDERED: MORPHINE SULFATE 4 MG/ML SYRINGE IV PRN (23:00)
[2025-01-19] MEDS ORDERED: ONDANSETRON 4 MG/2 ML VIAL IVP PRN (23:00)
[2025-01-19] MEDS ORDERED: IBUPROFEN 400 MG TAB PO PRN (23:00)
[2025-01-19] MEDS ORDERED: IPRATROPIUM-ALBUTEROL 3 ML NEB INHALATION PRN (23:00)
[2025-01-19] MEDS: IPRATROPIUM-ALBUTEROL 3 ML NEB INHALATION STA (23:18)
[2025-01-19] MEDS: SODIUM CHLORIDE 0.9% 1,000 ML IV SCH (23:52)
[2025-01-19] MEDS: DEXAMETHASONE SOD PHOSPHATE 10 MG/ML 1 ML VIAL IVP STA (23:52)
[2025-01-19 23:54] LABS: Glucose,Whole Blood 152 mg/dL (70-110)
[2025-01-20] MEDS ORDERED: BENZONATATE 100 MG CAP PO PRN (00:06)
[2025-01-20] MEDS ORDERED: MELATONIN 5 MG TABLET PO PRN (00:07)
--- NOTE | 2025-01-20 00:15 | P.HPIM ---
History of Present Illness H&P Date: 01/19/25 Patient is a 84-year-old male with a PMH of CAD s/p stents x3, [id number]-koththiyz diabetes mellitus, bilateral lower extremity peripheral neuropathy, hyperlipidemia, chronic back pain, Raynaud's disease presenting with shortness of breath. Patient states shortness of breath started approximately 4 weeks ago but states it has been getting worse. His son decided to schedule doctors appointment at the [place]. When seen at the [place] patient O2 saturation was low and was advised to come to the emergency department. Patient admits that the shortness of breath is worse on exertion making it difficult to get around. He endorses a productive cough of yellow sputum sometimes tinged with blood. He states he feels congested and noticed some wheezing. Patient also has secondary complaint of urinary retention. States it has been a week since he last voided. Patient denies any fever, chills, chest pain, heart palpitations, nausea, vomiting, diarrhea, abdominal pain. EKG independently displaying sinus rhythm with sinus arrhythmia, rate 67 bpm, QTc 425 ms CXR independently interpreted displaying multifocal airspace opacities Troponin <0.012, proBNP 739, WBC 12.8, Hgb 14.6, platelet 373, INR 1.1, sodium 135, CO2 19, BUN 38, creatinine 1.18, glucose 161, AST 53, ALT 89 Cepheid 4-Plex positive for RSV T 97.5 F, [place] 65, RR 24, BP 107/67, O2 sat 96% on room air ED documentation reviewed. Review of systems: Pertinent positives and negatives as discussed in HPI, a complete review of systems was performed and all other systems are negative. Social history: Tobacco: Current [id number] smoker Alcohol: Denies alcohol use Recreational drugs: Denies illicit drug use Travel: No recent travel Physical examination: Vital signs reviewed General: no distress, appears at stated age, normal weight Derm: no unusual rashes/lesions, warm Head: atraumatic, normocephalic, symmetric Eyes: EOMI, anicteric sclera, pupils equal round reactive to light ENT: Nose and ears atraumatic Mouth: no lip lesion, mucus membranes moist Cardiovascular: S1S2 reg, no murmurl, no edema Lungs: Diminished lung sounds bilaterally, rhonchi, expiratory wheezing, no accessory muscle use Abdominal: soft, non-tender to palpation, no guarding Ext: no gross muscle atrophy Neuro: CN II-XI grossly intact, no gross focal neuro deficits Psych: Alert, oriented to person, place, and time Assessment/Plan: Patient is a 84-year-old male with a PMH of CAD s/p stents x3, 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 #. RSV #. Acute hypoxemic respiratory failure secondary to above SIRS 1 with WBC of 12.8 - low sepsis risk CXR independently interpreted displaying multifocal airspace opacities Supportive care with acetaminophen 650 PO q6hr prn and Motrin 400mg PO q6hr prn for fever DuoNeb skwkqt-[id number] and as needed Decadron 10 mg IVP given once by ED Normal saline at 75 cc an hour Currently on room air #. High anion gap metabolic acidosis #. Mild hyponatremia #. Prerenal azotemia #. Urinary retention Likely in setting of dehydration Normal saline at 75 cc an hour UA pending Bladder scan ordered Recheck a.m. BMP #. Dca-suyoopt-qiwmobglh diabetes mellitus Insulin SQ sliding scale Hypoglycemia precautions Accu-Cheks ACHS Hold metformin Chronic: #. CAD s/p stent x 3: Aspirin 81 mg PO QD, Lipitor 40 mg PO HS, propranolol 60 mg PO BID #. Raynaud's disease: Procardia 10 mg p.o. 3 times daily #. Chronic back pain: Robaxin 500 mg p.o. twice daily, Mobic 15 mg p.o. at bedtime F: NS at 75 cc an hour E: Replete electrolytes as needed N: Regular diet A: Uses wheelchair DVT prophylaxis: Lovenox 40 SQ daily The patient is admitted with an anticipated less than than 2 midnight stay for evaluation of hypoxic RSV. CODE STATUS: Full code Discussed with: Patient Anticipated discharge place: Pending clinical course Demi Cruz MD PGY-1 IM Dictation was produced using [employer] dictation software. please excuse any grammatical, word or spelling errors. Past Medical History Past Medical History: Coronary Artery Disease (CAD), Diabetes Mellitus, GI Bleed, Hyperlipidemia, Osteoarthritis (OA) Additional Past Medical History / Comment(s): ESSENTIAL TREMORS, GI bleed 10/2017, diverticulitis, gallstones, some loss of use of rt arm, herniated disk, spinal stenosis History of Any Multi-Drug Resistant Organisms: None Reported Past Surgical History: Cholecystectomy Additional Past Surgical History / Comment(s): 3 cardiac stents, surgery on rt arm x 3 -fx as child, left eyelid surgery Past Anesthesia/Blood Transfusion Reactions: No Reported Reaction Date of Last Stent Placement:: 1999 Past Psychological History: Anxiety, Depression, Panic Disorder, Schizophrenia Smoking Status: Current every day smoker Past Alcohol Use History: None Reported Additional Past Alcohol Use History / Comment(s): SMOKES 1/2 PPD, SINCE AGE 20 Past Drug Use History: None Reported - Past Family History Mother Family Medical History: No Reported History family Family Medical History: Coronary Artery Disease (CAD) Medications and Allergies Home Medications Medication Instructions Recorded Confirmed Type Atorvastatin [Lipitor] 40 mg PO HS 01/01/17 12/21/24 History Aspirin [Adult Low Dose Aspirin EC] 81 mg PO DAILY 05/29/18 12/21/24 History methocarbamoL [Robaxin] 500 mg PO BID@1930,2130 04/04/22 12/21/24 History metFORMIN HCL 1,000 mg PO BID 06/30/22 12/21/24 History Folic Acid 1 mg PO DAILY 07/17/22 12/21/24 History Cholecalciferol [Vitamin D3 (25 25 mcg PO DAILY 12/21/24 12/21/24 History Mcg = 1000 Iu)] Meloxicam [Mobic] 15 mg PO HS 12/21/24 12/21/24 History Propranolol HCl [Inderal] 60 mg PO BID 12/21/24 12/21/24 History NIFEdipine [Procardia] 10 mg PO TID 30 Days #90 cap 12/22/24 Rx Allergies Allergy/AdvReac Type Severity Reaction Status Date / Time No Known Allergies Allergy Verified 01/19/25 17:22 Physical Exam Vitals: Vital Signs Temp Pulse Resp BP Pulse Ox 01/19/25 21:50 97.6 F 76 20 130/81 97 01/19/25 17:17 97.5 F L 65 24 107/67 96 Intake and Output 01/19/25 01/19/25 01/19/25 06:59 14:59 22:59 Other: Weight 85.275 kg Results CBC & Chem 7: 01/19/25 19:01 01/19/25 19:01 Labs: Abnormal Lab Results - Last 24 Hours (Table) 01/19/25 01/19/25 01/19/25 Range/Units 19:01 19:01 19:01 WBC 12.8 H (3.8-10.6) k/uL Neutrophils # 10.3 H (1.3-7.7) k/uL Sodium 135 L (137-145) mmol/L Carbon Dioxide 19 L (22-30) mmol/L BUN 38 H (9-20) mg/dL Glucose 161 H (74-99) mg/dL ALT 89 H (4-49) U/L RSV (PCR) Detected A (Not Detectd)
[2025-01-20 07:02] LABS: Basophils # (A) 0.1 k/uL (0-0.2); Basophils % (A) 1 %; Eosinophils % (A) 0 %; HCT 40.7 % (39.0-53.0); HGB 13.3 gm/dL (13.0-17.5); Lymphocytes # (A) 0.9 k/uL (1.0-4.8); Lymphocytes % (A) 7 %; MCH 30.5 pg (25.0-35.0); MCHC 32.7 g/dL (31.0-37.0); MCV 93.4 fL (80.0-100.0); Monocytes # (A) 0.2 k/uL (0-1.0); Monocytes % (A) 1 %; Neutrophils # (A) 11.5 k/uL (1.3-7.7); Neutrophils % (A) 90 %; Platelet Count 371 k/uL (150-450); RBC 4.36 m/uL (4.30-5.90); RDW 14.7 % (11.5-15.5); WBC 12.8 k/uL (3.8-10.6)
[2025-01-20 07:25] LABS: ALT 72 U/L (4-49); AST 30 U/L (17-59); African American GFR (CKD) 70 (>60 ml/min/1.73 sqM); Albumin 3.5 g/dL (3.5-5.0); Alkaline Phosphatase 92 U/L (38-126); Anion Gap 13 mmol/L; Blood Urea Nitrogen 37 mg/dL (9-20); Calcium 9.4 mg/dL (8.4-10.2); Carbon Dioxide 16 mmol/L (22-30); Chloride 107 mmol/L (98-107); Glucose 223 mg/dL (74-99); Magnesium 1.9 mg/dL (1.6-2.3); Non-African American GFR(CKD) 61 (>60 ml/min/1.73 sqM); Phosphorus 4.6 mg/dL (2.5-4.5); Potassium 4.7 mmol/L (3.5-5.1); Sodium 136 mmol/L (137-145); Total Bilirubin 0.6 mg/dL (0.2-1.3); Total Protein 6.2 g/dL (6.3-8.2)
[2025-01-20 08:58] LABS: Glucose,Whole Blood 235 mg/dL (70-110)
[2025-01-20] MEDS ORDERED: PANTOPRAZOLE 40 MG/10 ML VIAL IV SCH (09:00)
[2025-01-20] MEDS: IPRATROPIUM-ALBUTEROL 3 ML NEB INHALATION SCH (09:20)
[2025-01-20] MEDS: ENOXAPARIN 40 MG/0.4 ML SYRINGE SQ SCH (09:36)
[2025-01-20] MEDS: NIFEdipine 10 MG CAP PO SCH (09:36)
[2025-01-20] MEDS: ASPIRIN 81 MG PO SCH (09:36)
[2025-01-20] MEDS: PROPRANOLOL 20 MG TAB PO SCH (09:37)
[2025-01-20] MEDS: PANTOPRAZOLE 40 MG TABLET PO SCH (09:37)
[2025-01-20] MEDS: CHOLECALCIFEROL 25 MCG (1000 IU) TABLET PO SCH (09:37)
[2025-01-20] MEDS: FOLIC ACID 1 MG TAB PO SCH (09:37)
[2025-01-20] MEDS: INSULIN LISPRO (HumaLOG) 100 UNIT/ML 10 mL VL SQ SCH (09:45)
[2025-01-20 12:35] LABS: Glucose,Whole Blood 223 mg/dL (70-110)
--- NOTE | 2025-01-20 12:42 | P.DS ---
Providers Date of admission: 01/19/25 23:02 Expected date of discharge: 01/20/25 Attending physician: Aleksandra Maloney MD Primary care physician: [facility] Course: Discharge Diagnosis: Shortness of breath upon arrival, secondary to RSV. Continue supportive management. Patient maintaining SpO2 on room air at 96%. Patient discharged home with nebulizer machine and DuoNeb treatments. Instructed to continue DuoNebs 4 times daily for the next week and then may wean down to 4 times daily as needed for shortness of breath and/or wheezing. Patient instructed to follow-up outpatient with PCP in 1 to 2 days. Sinus bradycardia, asymptomatic. History of CAD status post stenting. Continue atorvastatin 40 mg nightly, asp irin 81 mg daily, amlodipine 10 mg daily, and propranolol 60 mg twice daily. Hyperlipidemia. Continue atorvastatin 40 mg nightly. Raynaud's disease. Continue to follow with Dr. Colon outpatient for management and continue amlodipine 10 mg daily. Qrb-azfkjru-dsibknfgx diabetes mellitus with diabetic peripheral neuropathy. Resume metformin 1000 mg twice daily. 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 Colon, vascular surgeon for management. He presented to the emergency department with a chief complaint of shortness of breath. Upon arrival to our facility, patient underwent evaluation in the emergency department. Vital signs upon arrival show blood pressure 107/67, heart rate 65, respiratory rate 24, temp 97.5 F, and SpO2 of 96% on room air. EKG completed showing normal sinus rhythm at 67 bpm with mild sinus arrhythmia. Chest x-ray showing improved aeration of the lungs with persistent multifocal airspace opacities when compared to chest x-ray completed 12/18/2024. Labs completed and reviewed. CBC showing mild leukocytosis with WBC count of 12.8 otherwise normal findings. Coagulation profile normal findings. BMP showing sodium 135, bicarb 19, and mild prerenal azotemia with BUN of 38. Blood glucose 161. Lactic acid 1.5. Liver profile showing elevated ALT of 89 otherwise normal findings. Troponin was negative at less than 0.012 . Cepheid 4 Plex viral panel was completed positive for RSV. Patient was admitted under our services to observation unit for continued close monitoring. Patient continues to maintain SpO2 on room air and denied any other complaints. RN reported that she walked in room and noted on monitor that patient's blood pressure was just 72/56 approximately 10 minutes ago, however patient's blood pressure cuff was not on his arm but around his wrist/hand so she readjusted the cuff and reassessed his blood pressure and at time of reassessment blood pressure 115/92 with heart rate of 64 and respiratory rate of 18 and SpO2 of 96% on room air. Patient also informed RN that he has chronic unchanged chest pain and has been seen in the past for same, prior to discharge a repeat troponin was obtained again negative at less than 0.012 and a repeat EKG also completed showing sinus bradycardia at 58 bpm with no significant T wave or ST abnormality showing no signs of acute ischemia upon personal review and interpretation. Discharge instructions were explained to patient, he was provided with a nebulizer machine and indigent funds were used for DuoNeb treatments. Patient instructed to continue DuoNebs 4 times daily for the next week and then may transition to only as needed for wheezing/shortness of breath. Patient maintaining SpO2 on room air at 96%, no need for steroids. Patient instructed on symptomatic treatment of RSV including increasing oral fluid intake, and over the counter pain management with Tylenol/Motrin as needed for generalized aches/pain and mild fever. Patient instructed he may also use aaya-xup-ytqxnzx cough syrup and/or cough drops as directed by manufacture. Patient reports that he has a care provider 5 days/week which is provided by the [facility] for home care. He is medically optimized for discharge at this time and to follow-up outpatient with PCP in 1 to 2 days. Physical exam: Vital signs reviewed and stable. General: Nontoxic, no distress and appears stated age. Derm: Skin warm and dry, normal coloration for ethnicity.. 3 small ulcers left foot the distal portion of second, third, and fourth toes Head: Atraumatic, normocephalic and symmetric. Eyes: EOM's intact, no lid lag, and anicteric sclera Mouth: no lip lesions, mucus membranes moist Cardiovascular: Bradycardic rate regular rhythm with normal S1S2, systolic murmur, positive posterior tibial pulses bilaterally Lungs: Respirations even, regular, and unlabored on room air. Lungs diminished with diffuse expiratory wheezes bilaterally. Abdominal: soft, nontender to palpation, no guarding, no appreciable organomegaly Ext:. No gross muscle atrophy, no edema, no contractures. Movement and sensation intact. Bilateral feet cool to touch and Sabas discoloration, posterior tibial and pedal pulses palpated and cap refill slightly delayed at 3 seconds (this is a chronic finding secondary to patient's Raynaud's and follows with Dr. Colon and currently on Norvasc 10 mg daily) Neuro: Speech clear, face symmetrical and CN II-XII grossly intact with no noted focal neuro deficits Psych: Alert and oriented to person, place, time, and situation. Appropriate and pleasant affect. A total of 34 minutes of time were spent preparing this complex discharge summary. Pt was discharged on at 3:43 PM. Patient was seen independently by Nurse Practitioner. This document was prepared using [employer] dictation software. Please allow for errors in blow moulding machine operator while rare they do occur. Wilmer Brewer NP rendered care for this patient independently, reviewed the findings and plan as documented in the note above. I did not physically speak with or examine the patient on this date. Patient Condition at Discharge: Stable Plan - Discharge Summary New Discharge Prescriptions: New Ipratropium-Albuterol Nebulize [Duoneb 0.5 mg-3 mg/3 ml Soln] 3 ml INHALATION RT-QID #50 each Continue Atorvastatin [Lipitor] 40 mg PO HS Aspirin [Adult Low Dose Aspirin EC] 81 mg PO DAILY methocarbamoL [Robaxin] 500 mg PO BID@ metFORMIN HCL 1,000 mg PO BID amLODIPine [Norvasc] 10 mg PO DAILY Folic Acid 1 mg PO DAILY Cholecalciferol [Vitamin D3 (25 Mcg = 1000 Iu)] 25 mcg PO DAILY Propranolol HCl [Inderal] 60 mg PO BID Meloxicam [Mobic] 15 mg PO HS Discharge Medication List Atorvastatin [Lipitor] 40 mg PO HS 01/01/17 [History] Aspirin [Adult Low Dose Aspirin EC] 81 mg PO DAILY 05/29/18 [History] methocarbamoL [Robaxin] 500 mg PO BID@1930,2130 04/04/22 [History] metFORMIN HCL 1,000 mg PO BID 06/30/22 [History] Folic Acid 1 mg PO DAILY 07/17/22 [History] Cholecalciferol [Vitamin D3 (25 Mcg = 1000 Iu)] 25 mcg PO DAILY 12/21/24 [History] Meloxicam [Mobic] 15 mg PO HS 12/21/24 [History] Propranolol HCl [Inderal] 60 mg PO BID 12/21/24 [History] Ipratropium-Albuterol Nebulize [Duoneb 0.5 mg-3 mg/3 ml Soln] 3 ml INHALATION RT-QID #50 each 01/20/25 [Rx] amLODIPine [Norvasc] 10 mg PO DAILY 01/20/25 [History] Follow up Appointment(s)/Referral(s): [facility] [NON-STAFF] - 1 Week Vinod Ames DO [Primary Care Provider] - 1-2 days (Please call office when open) Activity/Diet/Wound Care/Special Instructions: Nebulizer and nebulizer medications to be delivered to bedside prior to discharge. Continue nebulizer treatments 4 times daily for the next week then may use only as needed for shortness of breath. Treatment for RSV is symptomatic, encourage oral intake of fluids, [id number] Tylenol and/or Motrin as directed for mild pain/fevers and may use ejof-nld-oehnsrz cough syrup and cough drops per their directions. Activity: As tolerated. Take breaks as needed. Diet: Heart healthy and carb consistent diet. Special Instructions: You are being discharged [facility]. You are provided with nebulizer and nebulizer medications as stated above. Recommend following up outpatient with your PCP in the next 1 to 3 days. Thank you for allowing us to participate in your care, it was truly a pleasure having you for our patient!!! Discharge Disposition: HOME WITH HOME HEALTH SERVICES
[2025-01-20] MEDS: methylPREDNISolone SOD SUCCI 125 MG/2 ML VIAL IV STA (18:35)
[2025-01-20] MEDS: ACETAMINOPHEN TAB 325 MG TAB PO PRN (18:35)
[2025-01-20] MEDS: methocarbamoL 500 MG TAB PO SCH (18:36)
[2025-01-20 18:43] LABS: Glucose,Whole Blood 247 mg/dL (70-110)
[2025-01-20 20:37] LABS: Glucose,Whole Blood 287 mg/dL (70-110)
[2025-01-20] MEDS: MELOXICAM 7.5 MG TAB PO SCH (21:51)
[2025-01-20] MEDS: ATORVASTATIN 80 MG TAB PO SCH (21:52)
[2025-01-21 06:09] LABS: Glucose,Whole Blood 277 mg/dL (70-110)
[2025-01-21] MEDS ORDERED: predniSONE 20 MG TAB PO SCH (09:00)
[2025-01-21] MEDS: methylPREDNISolone SOD SUCCI 40 MG/ML 1 ML VIAL IV SCH (09:59)
[2025-01-21 10:27] LABS: HCT 39.1 % (39.6-50.0); HGB 12.9 g/dL (13.0-17.0); MCH 30.6 pg (27.0-32.0); MCV 92.9 FL (80.0-97.0); Mean Platelet Volume 9.7 FL (9.5-12.2); NRBC Per 100 WBC 0.02 X 10*3/uL (0.00-0.01); Platelet Count 361 X 10*3/uL (140-440); RBC 4.21 X 10*6/uL (4.40-5.60); RDW 14.6 % (11.5-14.5); WBC 17.55 X 10*3/uL (4.50-10.00)
[2025-01-21 10:45] LABS: ALT 71 U/L (10-49); AST 33 U/L (14-35); Albumin 3.7 g/dL (3.8-4.9); Albumin/Globulin Ratio 1.37 Ratio (1.60-3.17); Alkaline Phosphatase 90 U/L (41-126); BUN/Creat Ratio 31.64 Ratio (12.00-20.00); Blood Urea Nitrogen 34.8 mg/dL (9.0-27.0); Calcium 9.6 mg/dL (8.7-10.3); Carbon Dioxide 20.4 mmol/L (21.6-31.8); Chloride 107 mmol/L (96-109); Globulin 2.7 g/dL (1.6-3.3); Glucose 193 mg/dL (70-110); Magnesium 1.9 mg/dL (1.5-2.4); Potassium 4.1 mmol/L (3.5-5.5); Sodium 140 mmol/L (135-145); Total Bilirubin 0.2 mg/dL (0.3-1.2); Total Protein 6.4 g/dL (6.2-8.2)
--- NOTE | 2025-01-21 11:39 | P.DS ---
Providers Date of admission: 01/19/25 23:02 Expected date of discharge: 01/21/25 Attending physician: Aleksandra Maloney MD Primary care [facility]: [facility] Course: Discharge Diagnosis: Shortness of breath upon arrival, secondary to RSV. Continue supportive management. Patient maintaining SpO2 on room air at 96% and 91% with ambulation. Patient discharged home with nebulizer machine and DuoNeb treatments. Instructed to continue DuoNebs 4 times daily for the next week and then may wean down to 4 times daily as needed for shortness of breath and/or wheezing. Patient instructed to follow-up outpatient with PCP in 1 to 2 days. Leukocytosis, reactive secondary to administration of steroids. Sinus bradycardia, asymptomatic. History of CAD status post stenting. Continue atorvastatin 40 mg nightly, aspirin 81 mg daily, amlodipine 10 mg daily, and propranolol 60 mg twice daily. Hyperlipidemia. Continue atorvastatin 40 mg nightly. Raynaud's disease. Continue to follow with Dr. Colon outpatient for management and continue amlodipine 10 mg daily. Ofk-ipfqrjk-dwpbnbtmz diabetes mellitus with diabetic peripheral neuropathy. Resume metformin 1000 mg twice daily. 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 Colon, vascular surgeon for management. He presented to the emergency department with a chief complaint of shortness of breath. Upon arrival to our facility, patient underwent evaluation in the emergency department. Vital signs upon arrival show blood pressure 107/67, heart rate 65, respiratory rate 24, temp 97.5 F, and SpO2 of 96% on room air. EKG completed showing normal sinus rhythm at 67 bpm with mild sinus arrhythmia. Chest x-ray showing improved aeration of the lungs with persistent multifocal airspace opacities when compared to chest x-ray completed 12/18/2024. Labs completed and reviewed. CBC showing mild leukocytosis with WBC count of 12.8 otherwise normal findings. Coagulation profile normal findings. BMP showing sodium 135, bicarb 19, and mild prerenal azotemia with BUN of 38. Blood glucose 161. Lactic acid 1.5. Liver profile showing elevated ALT of 89 otherwise normal findings. Troponin was negative at less than 0.012 . Cepheid 4 Plex viral panel was completed positive for RSV. Patient was admitted under our services to observation unit for continued close monitoring. Patient doing well and currently denies shortness of breath. He does continue to report non-productive "heavy cough" but denies coughing fits or difficulty catching his breath, palpitations or chest pain.. He is maintaining oxygen saturations at 96% on room air and 91% with ambulation. Pt is medicallly optimized for discharge. Explained discharge instructions and recommendations to patient, he was provided with a nebulizer machine and [employer] funds were used for machine and DuoNeb tr eatments. Patient instructed to continue DuoNebs 4 times daily for the next week and then may transition to only as needed for wheezing/shortness of breath. Patient instructed on symptomatic treatment of RSV including increasing oral fluid intake with 6-8 glasses of water daily, and over the counter pain management with Tylenol/Motrin as needed for generalized aches/pain and mild fever. Patient instructed he may also use vdga-ulz-tyoyqfi cough syrup and/or cough drops as directed by loading manager. Patient reports that he has a care provider in his home 5 days/week which is provided by the [facility] for home care. He is medically optimized for discharge at this time and to follow-up outpatient with PCP in 1 to 2 days. Physical exam: Vital signs reviewed and stable. General: Nontoxic, no distress and appears stated age. Derm: Skin warm and dry, normal coloration for ethnicity.. Head: Atraumatic, normocephalic and symmetric. Eyes: EOM's intact, no lid lag, and anicteric sclera Mouth: no lip lesions, mucus membranes moist Cardiovascular: Bradycardic rate regular rhythm with normal S1S2, systolic murmur, positive posterior tibial pulses bilaterally Lungs: Respirations even, regular, and unlabored on room air. Lungs diminished with diffuse minimal expiratory wheezes bilaterally. Abdominal: soft, nontender to palpation, no guarding, no appreciable organomegaly Ext:. No gross muscle atrophy, no edema, no contractures. Movement and sensation intact. Bilateral feet cool to touch and Sabas discoloration, posterior tibial and pedal pulses palpated and cap refill slightly delayed at 3 seconds (this is a chronic finding secondary to patient's Raynaud's and follows with Dr. Colon and currently on Norvasc 10 mg daily) Neuro: Speech clear, face symmetrical and CN II-XII grossly intact with no noted focal neuro deficits Psych: Alert and oriented to person, place, time, and situation. Appropriate and pleasant affect. A total of 32 minutes of time were spent preparing this complex discharge summary. Pt was discharged on at 10:46 AM. Patient was seen independently by Nurse Practitioner. This document was prepared using [employer] dictation software. Please allow for errors in street supervisor while rare they do occur. Wilmer Brewer NP rendered care for this patient independently, reviewed the findings and plan as documented in the note above. I did not physically speak with or examine the patient on this date. Patient Condition at Discharge: Stable Plan - Discharge Summary Discharge Rx Participant: No New Discharge Prescriptions: New Ipratropium-Albuterol Nebulize [Duoneb 0.5 mg-3 mg/3 ml Soln] 3 ml INHALATION RT-QID #50 each Continue Atorvastatin [Lipitor] 40 mg PO HS Aspirin [Adult Low Dose Aspirin EC] 81 mg PO DAILY methocarbamoL [Robaxin] 500 mg PO BID@1929,2129 metFORMIN HCL 1,000 mg PO BID amLODIPine [Norvasc] 10 mg PO DAILY Folic Acid 1 mg PO DAILY Cholecalciferol [Vitamin D3 (25 Mcg = 1000 Iu)] 25 mcg PO DAILY Propranolol HCl [Inderal] 60 mg PO BID Meloxicam [Mobic] 15 mg PO HS Discharge Medication List Atorvastatin [Lipitor] 40 mg PO HS 01/01/17 [History] Aspirin [Adult Low Dose Aspirin EC] 81 mg PO DAILY 05/29/18 [History] methocarbamoL [Robaxin] 500 mg PO BID@04/04/22 [History] metFORMIN HCL 1,000 mg PO BID 06/30/22 [History] Folic Acid 1 mg PO DAILY 07/17/22 [History] Cholecalciferol [Vitamin D3 (25 Mcg = 1000 Iu)] 25 mcg PO DAILY 12/21/24 [History] Meloxicam [Mobic] 15 mg PO HS 12/21/24 [History] Propranolol HCl [Inderal] 60 mg PO BID 12/21/24 [History] Ipratropium-Albuterol Nebulize [Duoneb 0.5 mg-3 mg/3 ml Soln] 3 ml INHALATION RT-QID #50 each 01/20/25 [Rx] amLODIPine [Norvasc] 10 mg PO DAILY 01/20/25 [History] Follow up Appointment(s)/Referral(s): [facility] [NON-STAFF] - 1 Week Vinod Ames DO [Primary Care Provider] - 1-2 days (Please call office when open) Activity/Diet/Wound Care/Special Instructions: Nebulizer and nebulizer medications to be delivered to bedside prior to discharge. Continue nebulizer treatments 4 times daily for the next week then may use only as needed for shortness of breath. Treatment for RSV is symptomatic, encourage oral intake of fluids, hrzf-lvx-wirjuis Tylenol and/or Motrin as directed for mild pain/fevers and may use pfip-enn-ewdqngo cough syrup and cough drops per their directions. Activity: As tolerated. Take breaks as needed. Diet: Heart healthy and carb consistent diet. Special Instructions: You are being discharged home with [facility]. You are provided with nebulizer and nebulizer medications as stated above. Recommend following up outpatient with your PCP in the next 1 to 3 days. Thank you for allowing us to participate in your care, it was truly a pleasure having you for our patient!!! Discharge Disposition: HOME WITH HOME HEALTH SERVICES
[2025-01-21 12:11] LABS: Glucose,Whole Blood 305 mg/dL (70-110)
[2025-01-21 16:38] LABS: Glucose,Whole Blood 384 mg/dL (70-110)
--- NOTE | 2025-01-21 17:05 | P.EN ---
Rapid response was called for seizure-like activity. Upon my arrival patient is sitting in the bed, eyes open, not responding, nonrhythmic tremor noted, lasted several minutes. No history of seizures. The episode shortly resolved without any confusion, patient was able to provide full history and was fully alert and oriented right after. Chart reviewed, he was previously evaluated by neurology for similar presentation the EEG showed no seizure-like activity while patient was having this unresponsive and shaking episodes, CT head was negative, MRI brain showed no acute process. He also states that he [facility] however his insurance denied it, was supposed to see a neurologist next month. He also mentioned that epilepsy was ruled out which is confirmed by documentation in our EMR. Patient takes Robaxin usually in the evening at nighttime because he tends to get the symptoms overnight. Patient is hemodynamically stable, discharge orders in place, he can be discharged with all recommended follow-ups and establishing care with a new neurologist that will be covered by his insurance. Patient demonstrated understanding and agreed with the plan.
[2025-01-21 20:28] LABS: Glucose,Whole Blood 429 mg/dL (70-110)
[2025-01-21 20:28] LABS: Glucose,Whole Blood 384 mg/dL (70-110)
[2025-01-21] MEDS: clonazePAM 0.5 MG TAB PO SCH (20:48)
[2025-01-21] MEDS: guaiFENesin 600 MG TABLET.ER PO PRN (23:47)
[2025-01-22 06:09] LABS: Glucose,Whole Blood 297 mg/dL (70-110)
[2025-01-22 08:24] VITALS: BP 138/69; PULSE 76; RESP 20; TEMP 97.4
--- NOTE | 2025-01-22 11:42 | P.DS ---
Providers Date of admission: 01/19/25 23:02 Attending physician: Aleksandra Maloney MD Primary care physician: [facility] Course: Discharge Diagnosis: Shortness of breath upon arrival, secondary to RSV. Continue supportive management. Patient maintaining SpO2 on room air at 96% and 91% with ambulation. Patient discharged home with nebulizer machine and DuoNeb treatments. Instructed to continue DuoNebs 4 times daily for the next week and then may wean down to 4 times daily as needed for shortness of breath and/or wheezing. Patient instructed to follow-up outpatient with PCP in 1 to 2 days. Leukocytosis, reactive secondary to administration of steroids. 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 Patient to continue propranolol 60 twice daily, Robaxin, follow-up with neurology at the [place], psychiatrist will be Sinus bradycardia, asymptomatic. History of CAD status post stenting. Continue atorvastatin 40 mg nightly, aspirin 81 mg daily, amlodipine 10 mg daily, and propranolol 60 mg twice daily. Hyperlipidemia. Continue atorvastatin 40 mg nightly. Raynaud's disease. Continue to follow with Dr. Colon outpatient for management and continue amlodipine 10 mg daily. Mcm-arprhne-kdlqpaakc diabetes mellitus with diabetic peripheral neuropathy. Resume metformin 1000 mg twice daily. Hospital Course: Patient is a very pleasant 84-year-old male with a past medical history of CAD status post stenting x 3, hyperlipidemia, [id number]-baonncoee diabetes mellitus with diabetic peripheral neuropathy of bilateral lower extremities, GERD, chronic lower back pain, and advanced Raynaud's disease in which he follows Dr. Colon, vascular surgeon for management. He presented to the emergency department with a chief complaint of chest pain. Patient reports that he got up this morning around 4:30 AM and found his toilet to be frozen. He reports he worked on it a bit and poored some antifreeze down into the toilet then went and sat in his recliner. Patient reports shortly after sitting down he began feeling an intense heaviness and pressure to his midsternal and left anterior chest followed by a cold sensation and significant sweating and feeling as though his heart rate and breathing became very very slow. . Patient reports he was alarmed because this is exactly how he felt when he had his first stent placed in 1997 as well as the same way he felt when he had his nedt two stents placed in 1999, so he called his son followed by EMS for transfer to the hospital. He denies having any headache, lightheadedness, dizziness palpitations, shortness of breath, cough or congestion, nausea or vomiting, or experiencing any numbness/tingling/weakness/swelling in his extremities. Upon arrival to our facility, patient underwent evaluation in the emergency department. Vital signs upon arrival show blood pressure 128/73, heart rate 53, respiratory rate 16, temp 97.8 F, and SpO2 of 97% on room air. EKG was completed showing sinus bradycardia at 50 bpm nonspecific T wave abnormalities. Chest x-ray completed showing a 1 cm nodule right midlung and subsegmental atelectasis right lower lung base. Labs completed and reviewed. CBC showing mild normocytic anemia with hemoglobin of 12.6. Coagulation profile normal findings. BMP showing hyperchloremia with chloride of 109 otherwise normal findings. Blood glucose 76. Magnesium 2.2. Liver profile unremarkable. Troponin was negative at less than 0.012. Patient admitted under services with consultation to cardiology. Troponins were trended all negative at less than 0.012 x 3 draws. Hemoglobin A1c 6.5%. Lipid profile unremarkable with exception of low HDL of 33.80. Echocardiogram was completed however results not available at time of discharge and per cardiology patient cleared from their perspective. Patient underwent Lexiscan stress test which was negative showing no scintigraphic evidence for reversible ischemia. Patient was evaluated by neurologist secondary to observed myoclonic jerks/tremors of upper extremities.EEG was negative patient experienced 2 episodes of these myoclonic jerking reactions/tremors during EEG which was negative for seizure activity. Unclear cause of these tremors, discussed with patient that he will need to f ollow-up with his neurologist and psychiatrist with [facility]. Patient verbalized understanding. Continue propranolol 60 mg twice daily. Patient medically optimized for discharge at this time, he has been cleared from cardiology and neurology perspective. Patient to follow-up outpatient with PCP in 1 to 2 days and with wood gluer, neurologist, and psychiatrist at [facility]. Patient was clinically stable for discharge on 01/21, however it was postponed due to Rapid response was called for seizure-like activity. Upon my arrival patient is sitting in the bed, eyes open, not responding, nonrhythmic tremor noted, lasted several minutes. No history of seizures. The episode shortly resolved without any confusion, patient was able to provide full history and was fully alert and oriented right after. Chart reviewed, he was previously evaluated by neurology for similar presentation the EEG showed no seizure-like activity while patient was having this unresponsive and shaking episodes, CT head was negative, MRI brain showed no acute process. He also states that he was following with the [place] neurologist however his insurance denied it, was supposed to see a neurologist next month. He also mentioned that epilepsy was ruled out which is confirmed by documentation in our EMR. Patient takes Robaxin usually in the evening at nighttime because he tends to get the symptoms overnight. Patient's son expressed concerns regarding patient leaving today as family will be available to watch him overnight. He was not aware that patient has the symptoms frequently, I explained to him extensively recent workup, in fact patient was seen by neurology a month ago here in our institution. The diagnosis is myoclonic jerks/tremors of upper extremities, EEG again was negative, he was continued on propranolol 60 twice daily, and recommended to follow-up with neurologist and psychiatrist at [place]. Patient will stay overnight with plan to discharge 01/22 in the morning Patient is hemodynamically stable, discharge orders in place, he can be discharged with all recommended follow-ups and establishing care with a new neurologist that will be covered by his insurance. Patient demonstrated understanding and agreed with the plan. Patient seen and examined at bedside.[] Vital signs reviewed and stable. General: Nontoxic, no distress and appears stated age. Derm: Skin warm and dry, normal coloration for ethnicity.. Head: Atraumatic, normocephalic and symmetric. Eyes: EOM's intact, no lid lag, and anicteric sclera Mouth: no lip lesions, mucus membranes moist Cardiovascular: Bradycardic rate regular rhythm with normal S1S2, systolic murmur, positive posterior tibial pulses bilaterally Lungs: Respirations even, regular, and unlabored on room air. Lungs diminished with diffuse minimal expiratory wheezes bilaterally. Abdominal: soft, nontender to palpation, no guarding, no appreciable organomegaly Ext:. No gross muscle atrophy, no edema, no contractures. Movement and sensation intact. Bilateral feet cool to touch and Sabas discoloration, posterior tibial and pedal pulses palpated and cap refill slightly delayed at 3 seconds (this is a chronic finding secondary to patient's Raynaud's and follows with Dr. Colon and currently on Norvasc 10 mg daily) Neuro: Speech clear, face symmetrical and CN II-XII grossly intact with no noted focal neuro deficits Psych: Alert and oriented to person, place, time, and situation. Appropriate and pleasant affect A total of 40 minutes of time were spent preparing this complex discharge summary. Patient was discharged on 01/22/25 Patient Condition at Discharge: Stable Plan - Discharge Summary Discharge Rx Participant: No New Discharge Prescriptions: New Ipratropium-Albuterol Nebulize [Duoneb 0.5 mg-3 mg/3 ml Soln] 3 ml INHALATION RT-QID #50 each Continue Atorvastatin [Lipitor] 40 mg PO HS Aspirin [Adult Low Dose Aspirin EC] 81 mg PO DAILY methocarbamoL [Robaxin] 500 mg PO BID@1930,2130 metFORMIN HCL 1,000 mg PO BID amLODIPine [Norvasc] 10 mg PO DAILY Folic Acid 1 mg PO DAILY Cholecalciferol [Vitamin D3 (25 Mcg = 1000 Iu)] 25 mcg PO DAILY Propranolol HCl [Inderal] 60 mg PO BID Meloxicam [Mobic] 15 mg PO HS Discharge Medication List Atorvastatin [Lipitor] 40 mg PO HS 01/01/17 [History] Aspirin [Adult Low Dose Aspirin EC] 81 mg PO DAILY 05/29/18 [History] methocarbamoL [Robaxin] 500 mg PO BID@1930,2130 04/04/22 [History] metFORMIN HCL 1,000 mg PO BID 06/30/22 [History] Folic Acid 1 mg PO DAILY 07/17/22 [History] Cholecalciferol [Vitamin D3 (25 Mcg = 1000 Iu)] 25 mcg PO DAILY 12/21/24 [History] Meloxicam [Mobic] 15 mg PO HS 12/21/24 [History] Propranolol HCl [Inderal] 60 mg PO BID 12/21/24 [History] Ipratropium-Albuterol Nebulize [Duoneb 0.5 mg-3 mg/3 ml Soln] 3 ml INHALATION RT-QID #50 each 01/20/25 [Rx] amLODIPine [Norvasc] 10 mg PO DAILY 01/20/25 [History] Follow up Appointment(s)/Referral(s): [facility],Equipment [NON-STAFF] - 1 Week Vinod Ames DO [Primary Care Provider] - 1-2 days (Please call office when open) Patient Instructions/Handouts: Respiratory Syncytial Virus (DC), Upper Respiratory Infection (DC) Activity/Diet/Wound Care/Special Instructions: Nebulizer and nebulizer medications to be delivered to bedside prior to discharge. Continue nebulizer treatments 4 times daily for the next week then may use only as needed for shortness of breath. Treatment for RSV is symptomatic, encourage oral intake of fluids, [id number] Tylenol and/or Motrin as directed for mild pain/fevers and may use [id number] cough syrup and cough drops per their directions. Activity: As tolerated. Take breaks as needed. Diet: Heart healthy and carb consistent diet. Special Instructions: You are being [facility]. You are provided with nebulizer and nebulizer medications as stated above. Recommend following up outpatient with your PCP in the next 1 to 3 days. Thank you for allowing us to participate in your care, it was truly a pleasure having you for our patient!!! Discharge Disposition: HOME WITH HOME HEALTH SERVICES
== END 2025-01-22 10:45 | disposition home health service (06) | DRG 202 ==
LOC: EC 16:54 → OBSVTOIN 23:02 → 6NMEDSUR 23:02 → 1SOBS 01-20 22:18
PROVIDERS: ADMIT Internal Medicine; ATTEND Internal Medicine
DX: J21.0 Acute bronchiolitis due to respiratory syncytial virus (principal); J96.01 Acute respiratory failure with hypoxia; E87.20 Acidosis, unspecified; E87.1 Hypo-osmolality and hyponatremia; J44.0 Chronic obstructive pulmonary disease with (acute) lower respiratory infection; G25.3 Myoclonus; E11.42 Type 2 diabetes mellitus with diabetic polyneuropathy; D64.9 Anemia, unspecified; J44.1 Chronic obstructive pulmonary disease with (acute) exacerbation; F17.210 Nicotine dependence, cigarettes, uncomplicated; I25.10 Atherosclerotic heart disease of native coronary artery without angina pectoris; E86.0 Dehydration; I73.00 Raynaud's syndrome without gangrene; G89.29 Other chronic pain; E78.5 Hyperlipidemia, unspecified; F41.0 Panic disorder [episodic paroxysmal anxiety]; E87.8 Other disorders of electrolyte and fluid balance, not elsewhere classified; R74.01 Elevation of levels of liver transaminase levels; R33.9 Retention of urine, unspecified; Z95.5 Presence of coronary angioplasty implant and graft; Z79.84 Long term (current) use of oral hypoglycemic drugs; Z79.82 Long term (current) use of aspirin; Z79.899 Other long term (current) drug therapy; Z79.1 Long term (current) use of non-steroidal anti-inflammatories (NSAID); D72.828 Other elevated white blood cell count; T38.0X5A Adverse effect of glucocorticoids and synthetic analogues, initial encounter
CPT/HCPCS: 36415; 71046; 80053; 83605; 83735; 83880; 84100; 84484; 85025; 85027; 85610; 85730; 87636; 93005; 94640; 94760; 96361; 96372; 96374; 96375; 99285

== ENCOUNTER 2025-01-30 09:58 | Observation (INO) | payer OTHER, MEDICARE ==
--- NOTE | 2025-01-30 10:10 | ED ---
General Adult HPI - General Chief complaint: Weakness Stated complaint: Weakness Time Seen by Provider: 01/30/25 10:00 Source: patient, EMS, RN notes reviewed Mode of arrival: EMS Limitations: no limitations - History of Present Illness Initial comments: Patient is an 84-year-old male present to the emergency department not feeling well. Symptoms have been occurring for weeks. Patient does have cough with thick yellow-agudelo sputum. Patient does feel somewhat short of breath. No history of chronic lung disease. Patient feels generally weak all over. Decreased oral intake. Patient does have a dirt supervisor at home and feels he is doing okay with the dirt supervisor. - Related Data Home Medications Medication Instructions Recorded Confirmed Atorvastatin [Lipitor] 40 mg PO HS 01/01/17 01/30/25 Aspirin [Adult Low Dose Aspirin EC] 81 mg PO DAILY 05/29/18 01/30/25 methocarbamoL [Robaxin] 500 mg PO BID@1930,2130 04/04/22 01/30/25 metFORMIN HCL 1,000 mg PO BID 06/30/22 01/30/25 Folic Acid 1 mg PO DAILY 07/17/22 01/30/25 Cholecalciferol [Vitamin D3 (25 25 mcg PO DAILY 12/21/24 01/30/25 Mcg = 1000 Iu)] Meloxicam [Mobic] 15 mg PO HS 12/21/24 01/30/25 Propranolol HCl [Inderal] 60 mg PO BID 12/21/24 01/30/25 amLODIPine [Norvasc] 10 mg PO DAILY 01/20/25 01/30/25 Previous Rx's Medication Instructions Recorded Ipratropium-Albuterol Nebulize 3 ml INHALATION RT-QID #50 each 01/20/25 [Duoneb 0.5 mg-3 mg/3 ml Soln] Allergies Allergy/AdvReac Type Severity Reaction Status Date / Time No Known Allergies Allergy Verified 01/30/25 10:11 Review of Systems ROS Statement: Those systems with pertinent positive or pertinent negative responses have been documented in the HPI. ROS Other: All systems not noted in ROS Statement are negative. Constitutional: Reports: chills Eyes: Denies: eye pain ENT: Denies: ear pain Respiratory: Reports: as per HPI, cough, dyspnea Endocrine: Reports: fatigue Gastrointestinal: Denies: abdominal pain Musculoskeletal: Denies: back pain Past Medical History Past Medical History: Coronary Artery Disease (CAD), Diabetes Mellitus, GI Bleed, Hyperlipidemia, Osteoarthritis (OA) Additional Past Medical History / Comment(s): ESSENTIAL TREMORS, GI bleed 10/2017, diverticulitis, gallstones, some loss of use of rt arm, herniated disk, spinal stenosis History of Any Multi-Drug Resistant Organisms: None Reported Past Surgical History: Cholecystectomy Additional Past Surgical History / Comment(s): 3 cardiac stents, surgery on rt arm x 3 -fx as child, left eyelid surgery Past Anesthesia/Blood Transfusion Reactions: No Reported Reaction Date of Last Stent Placement:: 1999 Past Psychological History: Anxiety, Depression, Panic Disorder, Schizophrenia Smoking Status: Former smoker Past Alcohol Use History: None Reported Past Drug Use History: None Reported - Past Family History Mother Family Medical History: No Reported History family Family Medical History: Coronary Artery Disease (CAD) General Exam Limitations: no limitations General appearance: alert, in no apparent distress Head exam: Present: normocephalic Eye exam: Present: normal appearance Neck exam: Present: normal inspection Respiratory exam: Present: normal lung sounds bilaterally Cardiovascular Exam: Present: regular rate, normal rhythm GI/Abdominal exam: Present: soft. Absent: tenderness Extremities exam: Present: normal inspection. Absent: pedal edema, calf te nderness Back exam: Present: normal inspection Neurological exam: Present: alert Psychiatric exam: Present: normal affect, normal mood Skin exam: Present: normal color Course Vital Signs 01/30/25 01/30/25 01/30/25 09:59 10:04 11:20 Temperature 98.0 F Pulse Rate 81 72 Respiratory 18 20 18 Rate Blood Pressure 103/70 125/82 O2 Sat by Pulse 92 L 97 Oximetry EKG Findings - EKG Results: EKG: interpreted by ERMD (Left axis. Septal Q waves.), sinus rhythm, normal ST/T Medical Decision Making - Medical Decision Making Was pt. sent in by a medical professional or institution (, PA, SETTLEMENT CLERK, urgent care, hospital, or fci...) When possible be specific @ -No Did you speak to anyone other than the patient for history (EMS, parent, family, police, friend...)? What history was obtained from this source @ -Son is present helps provide history of patient's weakness and inability to take care of himself at home Did you review nursing and triage notes (agree or disagree)? Why? @ -I reviewed and agree with nursing and triage notes Were old charts reviewed (outside hosp., previous admission, EMS record, old EKG, old radiological studies, urgent care reports/EKG's, fci records)? Report findings @ -Previous admission reviewed Differential Diagnosis (chest pain, altered mental status, abdominal pain women, abdominal pain men, vaginal bleeding, weakness, fever, dyspnea, syncope, head ache, dizziness, GI bleed, back pain, seizure, CVA, palpatations, mental health, musculoskeletal)? @ -Differential Dyspnea: Coronary syndrome, arrhythmia, tamponade, asthma, COPD, pulmonary embolism, pneumonia, pneumothorax, pulmonary effusion, anaphylaxis, diabetic ketoacidosis, flailed chest, pulmonary contusion, diaphragmatic rupture, anemia, neuromuscular, this is not meant to be an all-inclusive list. EKG interpreted by me (3pts min.). @ -As above X-rays interpreted by me (1pt min.). @ -Chest x-ray shows basilar infiltrate versus atelectasis CT interpreted by me (1pt min.). @ -None done U/S interpreted by me (1pt. min.). @ -None done What testing was considered but not performed or refused? (CT, X-rays, U/S, labs)? Why? @ -None What meds were considered but not given or refused? Why? @ -None Did you discuss the management of the patient with other professionals (professionals i.e. , PA, SETTLEMENT CLERK, lab, RT, psych nurse, geriatric social work professor, vehicle fare collector, teacher, guest relation officer, case management social worker)? Give summary @ -Case discussed with practitioner Wilmer who is familiar with this patient and will admit covering Dr. Fisher me Was smoking cessation discussed for >3mins.? @ -No Was critical care preformed (if so, how long)? @ -No Were there social determinants of health that impacted care today? How? (Homelessness, low income, unemployed, alcoholism, drug addiction, transportation, low edu. Level, literacy, decrease access to med. care, snf, rehab)? @ -No Was there de-escalation of care discussed even if they declined (Discuss DNR or withdrawal of care, Hospice)? DNR status @ -No What co-morbidities impacted this encounter? (DM, HTN, Smoking, COPD, CAD, Cancer, CVA, ARF, Chemo, Hep., AIDS, mental health diagnosis, sleep apnea, morbid obesity)? @ -Recent RSV infection Was patient admitted / discharged? Hospital course, mention meds given and route, prescriptions, significant lab abnormalities, going to OR and other pertinent info. @ -Patient presents with fatigue cough and dyspnea. Chest x-ray concerning for pneumonia. Patient will be admitted with IV antibiotics. Admission orders written. Patient reevaluated and updated. Undiagnosed new problem with uncertain prognosis? @ -No Drug Therapy requiring intensive monitoring for toxicity (Heparin, Nitro, Insulin, Cardizem)? @ -No Were any procedures done? @ -No Diagnosis/symptom? @ -Pneumonia Acute, or Chronic, or Acute on Chronic? @ -Acute Uncomplicated (without systemic symptoms) or Complicated (systemic symptoms)? @ -Default Side effects of treatment? @ -No Exacerbation, Progression, or Severe Exacerbation? @ -No Poses a threat to life or bodily function? How? (Chest pain, USA, MT, pneumonia, PE, COPD, DKA, ARF, appy, cholecystitis, CVA, Diverticulitis, Homicidal, Suicidal, threat to staff... and all critical care pts) @ -Threat to pulmonary function - Lab Data Result diagrams: 01/30/25 10:15 01/30/25 10:15 Lab Results 01/30/25 01/30/25 01/30/25 Range/Units 10:15 10:15 10:15 WBC 15.3 H (3.8-10.6) k/uL RBC 4.23 L (4.30-5.90) m/uL Hgb 12.8 L (13.0-17.5) gm/dL Hct 39.7 (39.0-53.0) % MCV 93.7 (80.0-100.0) fL MCH 30.2 (25.0-35.0) pg MCHC 32.2 (31.0-37.0) g/dL RDW 15.5 (11.5-15.5) % Plt Count 300 (150-450) k/uL MPV 8.0 Neutrophils % 87 % Lymphocytes % 6 % Monocytes % 4 % Eosinophils % 1 % Basophils % 0 % Neutrophils # 13.3 H (1.3-7.7) k/uL Lymphocytes # 0.9 L (1.0-4.8) k/uL Monocytes # 0.7 (0-1.0) k/uL Eosinophils # 0.2 (0-0.7) k/uL Basophils # 0.1 (0-0.2) k/uL PT 11.4 (10.0-12.5) sec INR 1.0 (<1.2) APTT 24.5 (22.0-30.0) sec Sodium 136 L (137-145) mmol/L Potassium 4.2 (3.5-5.1) mmol/L Chloride 104 (98-107) mmol/L Carbon Dioxide 21 L (22-30) mmol/L Anion Gap 11 mmol/L BUN 14 (9-20) mg/dL Creatinine 0.77 (0.66-1.25) mg/dL Est GFR (CKD-EPI)AfAm >90 (>60 ml/min/1.73 sqM) Est GFR (CKD-EPI)NonAf 85 (>60 ml/min/1.73 sqM) Glucose 220 H (74-99) mg/dL Plasma Lactic Acid Paul (0.7-2.0) mmol/L Calcium 9.8 (8.4-10.2) mg/dL Magnesium 1.5 L (1.6-2.3) mg/dL Total Bilirubin 1.0 (0.2-1.3) mg/dL AST 19 (17-59) U/L ALT 27 (4-49) U/L Alkaline Phosphatase 90 (38-126) U/L Troponin I (0.000-0.034) ng/mL Total Protein 6.5 (6.3-8.2) g/dL Albumin 3.8 (3.5-5.0) g/dL Influenza Type A (PCR) (Not Detectd) Influenza Type B (PCR) (Not Detectd) RSV (PCR) (Not Detectd) SARS-CoV-2 (PCR) (Not Detectd) 01/30/25 01/30/25 01/30/25 Range/Units 10:15 10:15 10:15 WBC (3.8-10.6) k/uL RBC (4.30-5.90) m/uL Hgb (13.0-17.5) gm/dL Hct (39.0-53.0) % MCV (80.0-100.0) fL MCH (25.0-35.0) pg MCHC (31.0-37.0) g/dL RDW (11.5-15.5) % Plt Count (150-450) k/uL MPV Neutrophils % % Lymphocytes % % Monocytes % % Eosinophils % % Basophils % % Neutrophils # (1.3-7.7) k/uL Lymphocytes # (1.0-4.8) k/uL Monocytes # (0-1.0) k/uL Eosinophils # (0-0.7) k/uL Basophils # (0-0.2) k/uL PT (10.0-12.5) sec INR (<1.2) APTT (22.0-30.0) sec Sodium (137-145) mmol/L Potassium (3.5-5.1) mmol/L Chloride (98-107) mmol/L Carbon Dioxide (22-30) mmol/L Anion Gap mmol/L BUN (9-20) mg/dL Creatinine (0.66-1.25) mg/dL Est GFR (CKD-EPI)AfAm (>60 ml/min/1.73 sqM) Est GFR (CKD-EPI)NonAf (>60 ml/min/1.73 sqM) Glucose (74-99) mg/dL Plasma Lactic Acid Paul 1.4 (0.7-2.0) mmol/L Calcium (8.4-10.2) mg/dL Magnesium (1.6-2.3) mg/dL Total Bilirubin (0.2-1.3) mg/dL AST (17-59) U/L ALT (4-49) U/L Alkaline Phosphatase (38-126) U/L Troponin I <0.012 (0.000-0.034) ng/mL Total Protein (6.3-8.2) g/dL Albumin (3.5-5.0) g/dL Influenza Type A (PCR) Not Detected (Not Detectd) Influenza Type B (PCR) Not Detected (Not Detectd) RSV (PCR) Not Detected (Not Detectd) SARS-CoV-2 (PCR) Not Detected (Not Detectd) Disposition Clinical Impression: Pneumonia Disposition: ADMITTED IP TO THIS HOSP Is patient prescribed a controlled substance at d/c from ED?: No Referrals: Vinod Ames DO [Primary Care Provider] - 1-2 days Time of Disposition: 12:44
[2025-01-30] MEDS: SODIUM CHLORIDE 0.9% 1,000 ML IV SCH (10:25)
[2025-01-30 10:26] LABS: Basophils # (A) 0.1 k/uL (0-0.2); Basophils % (A) 0 %; Eosinophils # (A) 0.2 k/uL (0-0.7); Eosinophils % (A) 1 %; HCT 39.7 % (39.0-53.0); HGB 12.8 gm/dL (13.0-17.5); Lymphocytes # (A) 0.9 k/uL (1.0-4.8); Lymphocytes % (A) 6 %; MCH 30.2 pg (25.0-35.0); MCHC 32.2 g/dL (31.0-37.0); MCV 93.7 fL (80.0-100.0); Monocytes # (A) 0.7 k/uL (0-1.0); Monocytes % (A) 4 %; Neutrophils # (A) 13.3 k/uL (1.3-7.7); Neutrophils % (A) 87 %; Platelet Count 300 k/uL (150-450); RBC 4.23 m/uL (4.30-5.90); RDW 15.5 % (11.5-15.5); WBC 15.3 k/uL (3.8-10.6)
[2025-01-30 10:38] LABS: Partial Thromboplastin Time 24.5 sec (22.0-30.0); Prothrombin Time 11.4 sec (10.0-12.5)
[2025-01-30 10:42] LABS: ALT 27 U/L (4-49); AST 19 U/L (17-59); African American GFR (CKD) >90 (>60 ml/min/1.73 sqM); Albumin 3.8 g/dL (3.5-5.0); Alkaline Phosphatase 90 U/L (38-126); Anion Gap 11 mmol/L; Blood Urea Nitrogen 14 mg/dL (9-20); Calcium 9.8 mg/dL (8.4-10.2); Carbon Dioxide 21 mmol/L (22-30); Chloride 104 mmol/L (98-107); Glucose 220 mg/dL (74-99); Magnesium 1.5 mg/dL (1.6-2.3); Non-African American GFR(CKD) 85 (>60 ml/min/1.73 sqM); Potassium 4.2 mmol/L (3.5-5.1); Sodium 136 mmol/L (137-145); Total Protein 6.5 g/dL (6.3-8.2)
--- NOTE | 2025-01-30 11:08 | XR ---
EXAMINATION TYPE: XR chest 2V DATE OF EXAM: 01/30/2025 10:51 AM COMPARISON: 01/19/2025 CLINICAL INDICATION: Male, 84 years old with history of Weakness, , TECHNIQUE: AP and lateral views FINDINGS: Heart normal size. Mild interstitial prominence. There is patchy posterior basilar opacity on the lat eral view. No sizable pleural effusion. IMPRESSION: Patchy posterior basilar atelectasis versus infiltrate. Correlate with symptoms. [facility], Workstation: [facility] [id number], 01/30/2025 11:05 AM
[2025-01-30 11:12] LABS: Influenza A Not Detected (Not Detectd); Influenza B Not Detected (Not Detectd); RSV Not Detected (Not Detectd)
[2025-01-30] MEDS ORDERED: DEXTROSE 50% SYRINGE 50 ML IVP PRN ×2 (12:41)
[2025-01-30] MEDS ORDERED: PNEUMONIA PROTOCOL UTILIZED 1 EACH MISC PO PRN (12:44)
[2025-01-30] MEDS: MAGNESIUM SULFATE-D5W PMX 1 GM in DEXTROSE/WATER 1 100ML.BAG IVPB SCH (14:46)
[2025-01-30] MEDS: AZITHROMYCIN 500 MG in SODIUM CHLORIDE 0.9% 250 ML IVPB SCH (14:47)
[2025-01-30] MEDS ORDERED: ACETAMINOPHEN TAB 325 MG TAB PO PRN (16:20)
[2025-01-30] MEDS: IPRATROPIUM-ALBUTEROL 3 ML NEB INHALATION SCH (16:38)
[2025-01-30] MEDS ORDERED: hydrOXYzine HCL 25 MG TAB PO PRN (16:42)
[2025-01-30] MEDS: HYDROcodone/APAP 5-325MG 1 EACH TAB PO PRN (16:55)
--- NOTE | 2025-01-30 16:58 | P.HPIM ---
History of Present Illness H&P Date: 01/30/25 History of Presenting Illness: Patient is a very pleasant 84-year-old male with a past medical history of CAD status post stenting x 3, hyperlipidemia, laj-uiisxym-lwzdgdcew diabetes mellitus with diabetic peripheral neuropathy of bilateral lower extremities, chronic intermittent myoclonic jerks/tremors in upper extremities follows with psychiatrist at [facility] on propranolol, GERD, chronic urinary retention, chronic lower back pain, and advanced Raynaud's disease in which he follows Dr. Colon vascular surgeon for management. He presented to the emergency department with a chief complaint of shortness of breath and weakness. Patient reports progressively worsening weakness over the past 2 to 3 months and underwent recent hospitalization for RSV 01/19/2025 through 01/22/2025.. Patient reports feeling weak and not just himself anymore. He states he does get home care through the [facility] and can use them up to 40 hours/week but has only been utilizing 15 hours/week. Patient reports maybe he needs physical therapy with his home care. Patient reports productive cough and postnasal drainage. He denies having any fevers, chills, diaphoresis, dizziness, lightheadedness, changes in vision or hearing, chest pain, palpitations, nausea, vomiting, or experiencing any numbness/tingling/weakness in his extremities. Patient reports longstanding history of chronic urinary retention secondary to reports of enlarged prostate, but does not follow with urologist. Upon arrival to our facility, patient underwent evaluation in the emergency department. Vital signs upon arrival show blood pressure 103/70, heart rate 81, respiratory rate 18, temp 98.0 F, and SpO2 of 92% on room air. EKG completed showing normal sinus rhythm at 80 bpm with no significant T wave or ST abnormality showing no signs of acute ischemia upon personal review and interpretation. Chest x-ray completed showing patchy posterior bibasilar atelectasis, possible infiltrate. Labs completed and reviewed. CBC showing leukocytosis with WBC count of 15.3 and stable normocytic anemia with hemoglobin of 12.8 at baseline. BMP showing mild hypocarbia with bicarb of 21, blood glucose 220. Lactic acid of 1.4. Magnesium normal findings at 1.5. Troponin was negative at less than 0.012. Influenza A, influenza B, RSV, and COVID PCR negative. Patient started on IV antibiotics with a zithromycin and Rocephin until procalcitonin can be obtained. Patient admitted to observation unit under our services for generalized weakness and evaluation by physical therapy. Review of systems: Pertinent positives and negatives as discussed in HPI, a complete review of systems was performed and all other systems are negative. Physical exam: Vital signs reviewed and stable. General: Nontoxic, no distress and appears stated age. Derm: Skin warm and dry, normal coloration for ethnicity. Head: Atraumatic, normocephalic and symmetric. Eyes: EOM's intact, no lid lag, and anicteric sclera Mouth: no lip lesions, mucus membranes moist Cardiovascular: regular rate and rhythm with normal S1S2, systolic murmur, positive posterior tibial pulses bilaterally, and cap refill < 2 seconds. Lungs: Respirations even, regular, and unlabored on room air. Lungs CTA bilaterally, no rhonchi, no rales, no wheezing, and no accessory muscle usage. Abdominal: soft, nontender to palpation, no guarding, no appreciable organomegaly Ext: ROM intact. No gross muscle atrophy, no edema, no contractures. Patient has 2 sets of socks on secondary to chronic bilateral cold feet with Sabas discoloration secondary to known Raynaud's disease. Neuro: Speech clear, face symmetrical and CN II-XII grossly intact with no noted focal neuro deficits Psych: Alert and oriented to person, place, time, and situation. Appropriate and pleasant affect. Assessment and Plan of Care: Generalized weakness with ongoing shortness of breath Patchy posterior bibasilar atelectasis, rule out pneumonia post recent RSV infection -Continue IV antibiotics with Zithromax 500 mg daily and Rocephin 2 g daily pending procalcitonin results. If negative antibiotics to be discontinued. -Continue supportive care and management. -Encourage use of incentive spirometry 10-15 times hourly while awake. -Continue scheduled DuoNebs 4 times daily. -Telemetry monitoring. -Consult placed to physical therapy for evaluation secondary to reports of generalized weakness. -Fall precautions in place. -Patient to be provided with supplemental oxygen only if needed for SpO2 less than 90%. -Echocardiogram completed 12/22/2024 showed preserved EF of 55 to 60%. History of CAD status post stenting. -Continue atorvastatin 40 mg nightly, aspirin 81 mg daily, amlodipine 10 mg daily, and propranolol 60 mg twice daily. BPH with urinary retention -Patient reports longstanding history of BPH with chronic urinary retention and states he does not follow with a urologist. Patient started on Flomax 0.4 mg daily and encouraged to follow-up outpatient with urology. -Order placed for bladder scan as needed to monitor for postvoid residual/retention. Chronic lower back pain -Symptomatic care and pain management. Tylenol 650 mg every 6 hours as needed for mild pain and Section 5/325 mg tablets every 4 hours as needed for moderate pain. Continue home medication Mobic 15 mg nightly. Hyperlipidemia. -Continue atorvastatin 40 mg nightly. Raynaud's disease. -Continue to follow with Dr. Colon outpatient for management and continue amlodipine 10 mg daily. Iyg-feiofdj-pcsliqohr diabetes mellitus with diabetic peripheral neuropathy. -Hold metformin throughout hospitalization and patient placed on glycemic protocol with Humalog sliding scale. Patient may resume metformin 1000 mg twice daily on discharge. Most recent hemoglobin A1c was drawn on 12/21/2024 resulting at 6.5%. Anxiety -Patient placed on hydroxyzine 25 mg every 6 hours as needed for anxiety. Data and imaging reviewed: -As stated above in HPI. The patient is admitted with an anticipated less than 2 midnight stay for evaluation of generalized weakness CODE STATUS: Full code DVT prophylaxis: Lovenox Discussed with: Patient, RN, and ED physician Anticipated discharge date: Within the next 24 to [address]: Home with home care Patient was seen independently by Nurse Practitioner. This document was prepared using [employer] dictation software. Please allow for errors in reference assistant while rare they do occur. Wilmer Brewer NP rendered care for this patient independently, reviewed the findings and plan as documented in the note above and agree with plan. I did not physically speak with or examine the patient on this date. . Past Medical History Past Medical History: Coronary Artery Disease (CAD), Diabetes Mellitus, GI Bleed, Hyperlipidemia, Osteoarthritis (OA) Additional Past Medical History / Comment(s): ESSENTIAL TREMORS, GI bleed 10/2017, diverticulitis, gallstones, some loss of use of rt arm, herniated disk, spinal stenosis History of Any Multi-Drug Resistant Organisms: None Reported Past Surgical History: Cholecystectomy Additional Past Surgical History / Comment(s): 3 cardiac stents, surgery on rt arm x 3 -fx as child, left eyelid surgery Past Anesthesia/Blood Transfusion Reactions: No Reported Reaction Date of Last Stent Placement:: 1999 Past Psychological History: Anxiety, Depression, Panic Disorder, Schizophrenia Smoking Status: Former smoker Past Alcohol Use History: None Reported Past Drug Use History: None Reported - Past Family History Mother Family Medical History: No Reported History family Family Medical History: Coronary Artery Disease (CAD) Medications and Allergies Home Medications Medication Instructions Recorded Confirmed Type Atorvastatin [Lipitor] 40 mg PO HS 01/01/17 01/30/25 History Aspirin [Adult Low Dose Aspirin EC] 81 mg PO DAILY 05/29/18 01/30/25 History methocarbamoL [Robaxin] 500 mg PO BID@1930,2130 04/04/22 01/30/25 History metFORMIN HCL 1,000 mg PO BID 06/30/22 01/30/25 History Folic Acid 1 mg PO DAILY 07/17/22 01/30/25 History Cholecalciferol [Vitamin D3 (25 25 mcg PO DAILY 12/21/24 01/30/25 History Mcg = 1000 Iu)] Meloxicam [Mobic] 15 mg PO HS 12/21/24 01/30/25 History Propranolol HCl [Inderal] 60 mg PO BID 12/21/24 01/30/25 History Ipratropium-Albuterol Nebulize 3 ml INHALATION RT-QID #50 each 01/20/25 01/30/25 Rx [Duoneb 0.5 mg-3 mg/3 ml Soln] amLODIPine [Norvasc] 10 mg PO DAILY 01/20/25 01/30/25 History Allergies Allergy/AdvReac Type Severity Reaction Status Date / Time No Known Allergies Allergy Verified 01/30/25 10:11 Physical Exam Vitals: Vital Signs Temp Pulse Resp BP Pulse Ox 01/30/25 11:20 72 18 125/82 97 01/30/25 10:04 20 01/30/25 09:59 98.0 F 81 18 103/70 92 L Intake and Output 01/29/25 01/30/25 01/30/25 22:59 06:59 14:59 Output Total 500 Balance -500 Output: Post Void Residual 500 Other: Weight 83.915 kg Results CBC & Chem 7: 01/30/25 10:15 01/30/25 10:15 Labs: Abnormal Lab Results - Last 24 Hours (Table) 01/30/25 01/30/25 Range/Units 10:15 10:15 WBC 15.3 H (3.8-10.6) k/uL RBC 4.23 L (4.30-5.90) m/uL Hgb 12.8 L (13.0-17.5) gm/dL Neutrophils # 13.3 H (1.3-7.7) k/uL Lymphocytes # 0.9 L (1.0-4.8) k/uL Sodium 136 L (137-145) mmol/L Carbon Dioxide 21 L (22-30) mmol/L Glucose 220 H (74-99) mg/dL Magnesium 1.5 L (1.6-2.3) mg/dL
[2025-01-30] MEDS: INSULIN LISPRO (HumaLOG) 100 UNIT/ML 10 mL VL SQ SCH (18:10)
[2025-01-30 18:11] LABS: Glucose,Whole Blood 157 mg/dL (70-110)
[2025-01-30] MEDS: TAMSULOSIN 0.4 MG CAP.ER.24H PO SCH (18:54)
[2025-01-30 21:22] LABS: Glucose,Whole Blood 205 mg/dL (70-110)
[2025-01-30] MEDS: MELOXICAM 7.5 MG TAB PO SCH (22:00)
[2025-01-30] MEDS: methocarbamoL 500 MG TAB PO SCH (22:01)
[2025-01-30] MEDS: ATORVASTATIN 40 MG TAB PO SCH (22:01)
[2025-01-30] MEDS: PROPRANOLOL 20 MG TAB PO SCH (22:01)
[2025-01-31 06:50] LABS: Glucose,Whole Blood 222 mg/dL (70-110)
[2025-01-31 08:15] VITALS: BP 119/70; RESP 17; TEMP 98.5
[2025-01-31 08:50] VITALS: PULSE 76
[2025-01-31] MEDS: ASPIRIN 81 MG PO SCH (09:13)
[2025-01-31] MEDS: ENOXAPARIN 40 MG/0.4 ML SYRINGE SQ SCH (09:13)
[2025-01-31] MEDS: amLODIPine 10 MG TAB PO SCH (09:14)
[2025-01-31] MEDS: FOLIC ACID 1 MG TAB PO SCH (09:14)
[2025-01-31] MEDS: CHOLECALCIFEROL 25 MCG (1000 IU) TABLET PO SCH (09:14)
[2025-01-31 09:42] LABS: HCT 33.3 % (39.6-50.0); HGB 10.6 g/dL (13.0-17.0); MCH 30.2 pg (27.0-32.0); MCHC 31.8 g/dL (32.0-37.0); MCV 94.9 FL (80.0-97.0); Mean Platelet Volume 9.5 FL (9.5-12.2); NRBC Per 100 WBC 0 X 10*3/uL (0.00-0.01); Platelet Count 234 X 10*3/uL (140-440); RBC 3.51 X 10*6/uL (4.40-5.60); RDW 14.9 % (11.5-14.5); WBC 15.56 X 10*3/uL (4.50-10.00)
--- NOTE | 2025-01-31 13:56 | P.DS ---
Providers Date of admission: 01/30/25 12:45 Expected date of discharge: 01/31/25 Attending physician: Juan So Primary care physician: Vinod Ames Hospital Course: Discharge Diagnosis: Generalized weakness with ongoing shortness of breath with subacute cough residual from recent RSV infection. Patchy posterior bibasilar atelectasis with subacute cough status post recent RSV infection, encouraged patient to use incentive spirometer and continue home nebulizer treatments. History of CAD status post stenting. Continue atorvastatin 40 mg nightly, aspirin 81 mg daily, amlodipine 10 mg daily, and propranolol 60 mg twice daily. BPH with urinary retention. Patient reports longstanding history of BPH with chronic urinary retention and states he does not follow with a urologist. His son reports his dad has been having the same urinary frequency and voiding only small amounts for at least 2 decades since he can remember. Pt denies having any acute urinary complaints. He did require straight catheterization x 1 for urinary retention during hospitalization. Patient started on Flomax 0.4 mg daily and encouraged to follow-up outpatient with urologist for evaluation/testing. Residuals were assessed on day of discharge with maximum amount of 117 cc. Other than chronic urinary frequency patient denies having any dysuria, hematuria, suprapubic pain or discomfort, or any acute urinary complaints. Chronic lower back pain. Symptomatic care and pain management. Tylenol 650 mg every 6 hours as needed for mild pain and Mobic 15 mg nightly. Hyperlipidemia. Continue atorvastatin 40 mg nightly. Raynaud's disease. Continue to follow with Dr. Colon outpatient for management and continue amlodipine 10 mg daily. Lsd-pwnezkx-xktqojjow diabetes mellitus with diabetic peripheral neuropathy. Resume metformin 1000 mg daily on discharge. Most recent hemoglobin A1c was drawn on 12/21/2024 resulting at 6.5%. Anxiety Hospital Course: Patient is a very pleasant 84-year-old male with a past medical history of CAD status post stenting x 3, hyperlipidemia, nth-xderqjr-segqgamwq diabetes mellitus with diabetic peripheral neuropathy of bilateral lower extremities, chronic intermittent myoclonic jerks/tremors in upper extremities follows with psychiatrist at [facility] on propranolol, GERD, chronic urinary retention, chronic lower back pain, and advanced Raynaud's disease in which he follows Dr. Colon vascular surgeon for management. He presented to the emergency department with a chief complaint of shortness of breath and weakness. Patient reports progressively worsening weakness over the past 2 to 3 months and underwent recent hospitalization for RSV 01/19/2025 through 01/22/2025.. Patient reports feeling weak and not just himself anymore. He [facility] up to 40 hours/week but has only been utilizing 15 hours/week. Patient reports maybe he needs physical therapy with his home care. Patient reports productive cough and postnasal drainage. He denies having any fevers, chills, diaphoresis, dizziness, lightheadedness, changes in vision or hearing, chest pain, palpitations, nausea, vomiting, or experiencing any numbness/tingling/weakness in his extremities. Patient reports longstanding history of chronic urinary retention secondary to reports of enlarged prostate, but does not follow with urologist. Upon arrival to our facility, patient u nderwent evaluation in the emergency department. Vital signs upon arrival show blood pressure 103/70, heart rate 81, respiratory rate 18, temp 98.0 F, and SpO2 of 92% on room air. EKG completed showing normal sinus rhythm at 80 bpm with no significant T wave or ST abnormality showing no signs of acute ischemia upon personal review and interpretation. Chest x-ray completed showing patchy posterior bibasilar atelectasis, possible infiltrate. Labs completed and reviewed. CBC showing leukocytosis with WBC count of 15.3 and stable normocytic anemia with hemoglobin of 12.8 at baseline. BMP showing mild hypocarbia with bicarb of 21, blood glucose 220. Lactic acid of 1.4. Magnesium normal findings at 1.5. Troponin was negative at less than 0.012. Influenza A, influenza B, RSV, and COVID PCR negative. Patient started on IV antibiotics with azithromycin and Rocephin until procalcitonin can be obtained. Patient admitted to observation unit under our services for generalized weakness and evaluation by physical therapy. Procalcitonin was negative at 0.11. Antibiotics were discontinued. Patient educated on the importance of incentive spirometry use and continue DuoNeb treatments. He was evaluated by physical therapist recommending home with home care with continued use of his rolling walker as per baseline. Patient's family voiced concerns that patient does not follow rehab recommendations on days 0 not out to the house, educated the importance of encouraging exercises as instructed by the physical therapist to improve strength and endurance. Patient was started on Flomax during hospitalization as he has a history of BPH with chronic urinary retention but states he does not follow with a urologist. It is reported that this has been ongoing for decades and unchanged. Patient was instructed he will need to follow-up outpatient with urology for further testing/management. Physical exam: Vital signs reviewed and stable. General: Nontoxic, no distress and appears stated age. Derm: Skin warm and dry, normal coloration for ethnicity. Head: Atraumatic, normocephalic and symmetric. Eyes: EOM's intact, no lid lag, and anicteric sclera Mouth: no lip lesions, mucus membranes moist Cardiovascular: regular rate and rhythm with normal S1S2, systolic murmur, positive posterior tibial pulses bilaterally, and cap refill < 2 seconds. Lungs: Respirations even, regular, and unlabored on room air. Lungs CTA bilaterally, no rhonchi, no rales, no wheezing, and no accessory muscle usage. Abdominal: soft, nontender to palpation, no guarding, no appreciable organomegaly Ext: ROM intact. No gross muscle atrophy, no edema, no contractures. Patient has 2 sets of socks on secondary to chronic bilateral cold feet with Sabas discoloration secondary to known Raynaud's disease. Neuro: Speech clear, face symmetrical and CN II-XII grossly intact with no noted focal neuro deficits Psych: Alert and oriented to person, place, time, and situation. Appropriate and pleasant affect. A total of 37 minutes of time were spent preparing this complex discharge summary. Pt was discharged on 01/31/25 at 10:12 AM Patient was seen independently by Nurse Practitioner. This document was prepared using [employer] dictation software. Please allow for errors in farm advisor while rare they do occur. Wilmer Brewer NP rendered care for this patient independently, reviewed the findings and plan as documented in the note above. I did not physically speak with or examine the patient on this date. Patient Condition at Discharge: Stable Plan - Discharge Summary Discharge Rx Participant: Yes New Discharge Prescriptions: New guaiFENesin [Mucinex] 600 mg PO Q12H 7 Days #14 tab Tamsulosin [Flomax] 0.4 mg PO PC-SUPPER 30 Days #30 cap Continue Atorvastatin [Lipitor] 40 mg PO HS Aspirin [Adult Low Dose Aspirin EC] 81 mg PO DAILY methocarbamoL [Robaxin] 500 mg PO BID@1930,2130 metFORMIN HCL 1,000 mg PO BID amLODIPine [Norvasc] 10 mg PO DAILY Folic Acid 1 mg PO DAILY Cholecalciferol [Vitamin D3 (25 Mcg = 1000 Iu)] 25 mcg PO DAILY Propranolol HCl [Inderal] 60 mg PO BID Meloxicam [Mobic] 15 mg PO HS Ipratropium-Albuterol Nebulize [Duoneb 0.5 mg-3 mg/3 ml Soln] 3 ml INHALATION RT-QID #50 each Discharge Medication List Atorvastatin [Lipitor] 40 mg PO HS 01/01/17 [History] Aspirin [Adult Low Dose Aspirin EC] 81 mg PO DAILY 05/29/18 [History] methocarbamoL [Robaxin] 500 mg PO BID@04/04/22 [History] metFORMIN HCL 1,000 mg PO BID 06/30/22 [History] Folic Acid 1 mg PO DAILY 07/17/22 [History] Cholecalciferol [Vitamin D3 (25 Mcg = 1000 Iu)] 25 mcg PO DAILY 12/21/24 [History] Meloxicam [Mobic] 15 mg PO HS 12/21/24 [History] Propranolol HCl [Inderal] 60 mg PO BID 12/21/24 [History] Ipratropium-Albuterol Nebulize [Duoneb 0.5 mg-3 mg/3 ml Soln] 3 ml INHALATION RT-QID #50 each 01/20/25 [Rx] amLODIPine [Norvasc] 10 mg PO DAILY 01/20/25 [History] Tamsulosin [Flomax] 0.4 mg PO PC-SUPPER 30 Days #30 cap 01/31/25 [Rx] guaiFENesin [Mucinex] 600 mg PO Q12H 7 Days #14 tab 01/31/25 [Rx] Follow up Appointment(s)/Referral(s): Davin Teran MD [STAFF PHYSICIAN] - 1 Week (you were started on flomax and highly recommend following up with a urologist for your known bph with chronic urinary retention.) Vinod Ames DO [Primary Care Provider] - 1-2 days Activity/Diet/Wound Care/Special Instructions: Activity: As tolerated. Take breaks as needed. Diet: Heart healthy and carb consistent diet. Special Instructions: You have a subacute cough which is residual from your recent RSV infection. Your procalcitonin is negative therefore bacterial pneumonia has been ruled out. It is important to use the incentive spirometer at home to help resolve residual atelectasis at your lung bases and continue to use your nebulizer treatments as previously recommended. As discussed, recommend utilizing your home care to the full potential of 40 hours a week with Physical and Occupational Therapy to help improve your generalized weakness and work on your strength and endurance. Thank you for allowing us to participate in your care, it was truly a pleasure having you for our patient!!! . Discharge Disposition: HOME WITH HOME HEALTH SERVICES
== END 2025-01-31 11:55 | disposition home health service (06) ==
LOC: EC 09:58 → 4SSUR 12:45
PROVIDERS: ADMIT Student in an Organized Health Care Education/Training Program; ATTEND Student in an Organized Health Care Education/Training Program
DX: R53.1 Weakness (principal); R06.02 Shortness of breath; R05.9 Cough, unspecified; J98.11 Atelectasis; I25.10 Atherosclerotic heart disease of native coronary artery without angina pectoris; E78.5 Hyperlipidemia, unspecified; F20.9 Schizophrenia, unspecified; F32.A Depression, unspecified; F41.0 Panic disorder [episodic paroxysmal anxiety]; E11.42 Type 2 diabetes mellitus with diabetic polyneuropathy; K21.9 Gastro-esophageal reflux disease without esophagitis; N40.1 Benign prostatic hyperplasia with lower urinary tract symptoms; R33.8 Other retention of urine; M54.50 Low back pain, unspecified; G89.29 Other chronic pain; I73.00 Raynaud's syndrome without gangrene; Z87.891 Personal history of nicotine dependence; Z95.5 Presence of coronary angioplasty implant and graft; Z79.82 Long term (current) use of aspirin; Z79.84 Long term (current) use of oral hypoglycemic drugs; Z79.899 Other long term (current) drug therapy; Z82.49 Family history of ischemic heart disease and other diseases of the circulatory system
CPT/HCPCS: 96372; 96368; 96365; 96366; 96367; 99285; 51798; 36415; 94640 ×2; 93005; 97162; 80053; 87449; 83605; 83735 ×2; 84484; 85025; 85027; 85610; 85730; 87040; 87070; 87205; 87077; 87186; 84145; 87636; 71046; G0378 ×2; J0456; J0696; J1650; J3475